=== PATIENT | female | born 1940 | race Caucasian/White ===

== ENCOUNTER 2020-01-28 07:59 | Outpatient (REF) | payer MEDICARE, MEDICAID, SELFPAY ==
[2020-01-28 12:06] LABS: Alanine Aminotransferase 17 U/L (0-31); Aspartate Amino Transferase 17 U/L (5-31); Cholesterol 179 mg/dL; HDL Cholesterol 54 mg/dL; LDL Cholesterol Calculated 93 mg/dl; Triglycerides 161 mg/dL
[2020-01-28 12:43] LABS: Estimated Average Glucose 137 mg/dL; Hemoglobin A1c % 6.4 %
== END 2020-01-28 08:00 | disposition home or self-care (01) ==
LOC: HO.HMGCLDS 07:59
PROVIDERS: PCP Internal Medicine; Visit Provider Internal Medicine
DX: I10 Essential (primary) hypertension (principal); E78.5 Hyperlipidemia, unspecified; E11.9 Type 2 diabetes mellitus without complications
CPT/HCPCS: 36415; 80061; 83036; 84450; 84460

== ENCOUNTER 2020-03-04 13:23 | Outpatient (REF) | payer MEDICARE, MEDICAID, SELFPAY ==
--- NOTE | 2020-03-04 13:26 | MM_ITS ---
EXAMINATION: MM SCREENING DIGITAL BREAST TOMOSYNTHESIS, BILATERAL CLINICAL INFORMATION: Screening. Asymptomatic. The lifetime risk of breast cancer based on the Tyrer-Cuzick Model is under 2%. COMPARISON: Mammography: 03/13/2018, 03/03/2018, 07/05/2016 TECHNIQUE: Digital breast tomosynthesis is performed in both the craniocaudal and mediolateral oblique views along with computer-aided detection (CAD). Synthesized 2D images are generated from the tomosynthesis. FINDINGS: The breasts are almost entirely fatty (ACR BI-RADS breast composition Category a). Background stromal densities are stable. There is no developing density or interval mass or architectural abnormality. No abnormal calcifications. The axilla and skin contours are unremarkable. No significant changes from prior studies. MM/MM tomosynthesis screening BI IMPRESSION: No mammographic evidence of malignancy. ASSESSMENT: BI-RADS 1: Negative RECOMMENDATION: Routine annual mammography screening. This patient's information was entered into a reminder system with a target due date for their next mammogram.
== END 2020-03-04 13:24 | disposition home or self-care (01) ==
LOC: HO.MAMMO 13:23
PROVIDERS: PCP Internal Medicine; Visit Provider Internal Medicine
DX: Z12.31 Encounter for screening mammogram for malignant neoplasm of breast (principal)
CPT/HCPCS: 77063; 77067

== ENCOUNTER → 2020-03-17 11:09 | Outpatient (BNVA) | payer MEDICARE, MEDICAID, SELFPAY | PROVIDERS: PCP Internal Medicine; Visit Provider Surgery | DX: D17.1 Benign lipomatous neoplasm of skin and subcutaneous tissue of trunk (principal) | CPT/HCPCS: 99202 ==

== ENCOUNTER → 2020-04-08 11:44 | Outpatient (BNVA) | payer MEDICARE, MEDICAID, SELFPAY | PROVIDERS: PCP Internal Medicine; Visit Provider Internal Medicine | DX: J44.9 Chronic obstructive pulmonary disease, unspecified (principal); J30.9 Allergic rhinitis, unspecified | CPT/HCPCS: 99212 ==

== ENCOUNTER 2020-05-01 22:56 | Emergency (ER) | payer MEDICARE, MEDICAID, SELFPAY ==
[2020-05-01 22:58] VITALS: BP 141/64; PULSE 110; RESP 18; TEMP 36.8; O2SAT 99; BMI 34.4
[2020-05-02] VITALS: BP 150/69; PULSE 89; RESP 18; TEMP 37; O2SAT 98
--- NOTE | 2020-05-02 00:17 | ED_ITS ---
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 She ate dinner at 6:30, meatballs and swedish fries. She is not on any new medications. She has been off of ACEI due to angioedema. She reported mild SOB at the onset of the swelling but took her inhalers for her COPD and her SOB improved. She denies tongue swelling, throat swelling, wheezing. MD complaint: allergic reaction Onset (ago): hour(s) (4) Exposure: unknown Known history of allergy to: ACEI, shellfish Symptoms: lip swelling Severity: mild Treatment prior to arrival: none Previous Allergic Reaction History: anaphylaxis and angioedema Related Data Home Medications Medication Instructions Recorded Confirmed acetaminophen 300 mg-codeine 30 mg 1 tab PO Q6H PRN 01/30/20 01/30/20 tablet albuterol sulfate 90 mcg/actuation 2 puff INHALATION Q4H PRN 01/30/20 01/30/20 aerosol inhaler allopurinol 100 mg tablet 100 mg PO DAILY 01/30/20 01/30/20 azelastine 137 mcg (0.1 %) nasal 1 spray INTRANASAL DAILY 01/30/20 01/30/20 spray aerosol chlorthalidone 25 mg tablet 25 mg PO DAILY 01/30/20 01/30/20 duloxetine 30 mg capsule,delayed mg PO 01/30/20 01/30/20 release flu vacc 2020-21(65yr ml IM 01/30/20 01/30/20 up)-MF59C(PF) 60 mcg(15 mcgx4)/0.5 mL IM syringe fluocinonide 0.05 % topical cream applic TOPICAL BID 01/30/20 01/30/20 gabapentin 100 mg capsule 100 mg PO TID 01/30/20 01/30/20 losartan 50 mg tablet 50 mg PO DAILY 01/30/20 01/30/20 magnesium oxide 400 mg (241.3 mg 400 mg PO BID 01/30/20 01/30/20 magnesium) tablet omeprazole 20 mg capsule,delayed 20 mg PO BID 01/30/20 01/30/20 release Previous Rx's Medication Instructions Recorded potassium chloride 20 mEq 20 meq PO DAILY #90 tab 01/30/20 tablet,extended release(part/cryst) pantoprazole 40 mg tablet,delayed 40 mg PO DAILY #90 ea 02/25/20 release Nasonex 50 mcg/actuation [place] 2 spray INTRANASAL DAILY #51 g NS 03/11/20 budesonide 180 mcg/actuation 1 inh PO BID #1 ea 03/31/20 breath activated powder inhaler montelukast 10 mg tablet 10 mg PO BEDTIME #30 tab 03/31/20 rosuvastatin 20 mg tablet 20 mg PO BEDTIME #30 tab 03/31/20 Serevent Diskus 50 mcg/dose powder 1 inh PO BID 90 Days ea NS 04/01/20 for inhalation sitagliptin 50 mg-metformin 500 mg 1 tab PO BID 30 Days #60 tab 04/03/20 tablet blood-glucose meter #1 ea 04/09/20 alprazolam 0.25 mg tablet 0.25 mg PO DAILY PRN #90 tab 04/21/20 albuterol sulfate 90 mcg/actuation 2 inh INHALATION Q4-6H PRN 90 Days 04/23/20 breath activated powder inhaler #1 ea budesonide 180 mcg/actuation 1 inh INHALATION DAILY 90 Days #1 04/23/20 breath activated powder inhaler ea epinephrine [EpiPen] 0.3 mg IM ONCE PRN #1 ea 05/02/20 prednisone 40 mg PO DAILY #10 tab 05/02/20 Allergies Allergy/AdvReac Type Severity Reaction Status Date / Time acetaminophen [From Percocet] Allergy Severe Nausea and Verified 04/08/20 11:56 Vomiting Penicillins [PENICILLINS] Allergy Intermediate rash Verified 04/08/20 11:56 aspirin [ASPIRIN] Allergy Mild SWELLING Verified 04/08/20 11:56 enoxaparin [From LOVENOX] Allergy Unknown INTERNAL Verified 04/08/20 11:56 BLEEDING heparin [HEPARIN] Allergy Unknown INTERNAL Verified 04/08/20 11:56 BLEEDING meperidine [Demerol] Allergy Unknown Nausea and Verified 04/08/20 11:56 Vomiting oxycodone Allergy Unknown Nausea and Verified 04/08/20 11:56 Vomiting penicillin V Allergy Unknown rash Verified 12/15/20 11:56 Sulfa (Sulfonamide Allergy Unknown NAUSEA & Verified 04/08/20 11:56 Antibiotics) VOMITING, [SULFA (SULFONAMIDE GI upset ANTIBIOTICS)] warfarin [WARFARIN] AdvReac Severe UNKNOWN Verified 04/08/20 11:56 ibuprofen AdvReac Unknown GI bleed Verified 04/08/20 11:56 Review of Systems Review of Systems: Constitutional: No Fever, No Chills ENT/Mouth: No sore throat, No Rhinorrhea, No Swallowing Difficulty Eyes: No Eye Pain, No Swelling, No Redness Cardiovascular: No Chest Pain, No SOB Respiratory: No Cough, No Sputum, No Wheezing Gastrointestinal: No Nausea, No Vomiting Skin: No Skin Lesions, No rash Neuro: No Headache PMFSH Past Medical History Attestation statement: The following information was validated with the patient. 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 Sister CVA (cerebral vascular accident) Daughter Brain tumor Diabetes Bipolar 1 disorder Heart abnormality Mental illness in member of household Social History Social History Alcohol intake: never Smoking Status: Former smoker Years Smoked: 10 yrs Smoked in Last 30 Days: No Use of substances other than those prescribed or required for medical reasons: No Advance Directives: No Physical Exam Vital Signs: Vital Signs: Last Vital Signs Temp 98.6 F 05/02/20 00:00 Pulse 89 05/02/20 00:00 Resp 18 05/02/20 00:00 BP 150/69 H 05/02/20 00:00 Pulse Ox 98 05/02/20 00:00 Body Mass Index 34.4 Appearance: Alert. Oriented X3. No acute distress. Eyes: Pupils equal, round and reactive to light. ENT: upper lip with mild swelling, normal lower lip, no lesions. normal tongue, uvula midline, Pharynx normal. normal voice Neck: Normal inspection. Neck supple. CVS: Normal heart rate and rhythm. Pulses normal. Respiratory: No respiratory distress. Breath sounds normal. Skin: Skin warm and dry. Normal skin color. Normal skin turgor. No rashes. Extremities: No lower extremity edema. Neuro: Oriented X 3. Non-focal Course Course Course Narrative: 80 y/o female with hx MAGNOLIA inhibitor induced angioedema presenting with upper lip swelling x4 hours. Reports improving swelling without treatment. No respiratory compromise or airway involvement. Unknown precipitant. Will give dose of prednisone, benadryl and pepcid and monitor in the ER. Reevaluation(s) Reevaluation #1: Improvement subjectively and objectively after medications - stable for discharge. warning symptoms to warrant EpiPen use and immediate return to the ER were discussed. Stable for d/c. Discharge Plan Discharge Clinical Impression: Angioedema Qualifiers: Encounter type: initial encounter Qualified Code(s): T78.3XXA - Angioneurotic edema, initial encounter Patient Disposition: Home, Self-Care Instructions: Angioedema (ED) Additional Instructions: It is unknown what you had an allergic reaction to today. Your lip swelling is improving. Take the prescribed steroid medication starting tomorrow morning. Take Benadryl 25 mg every 6 hours as needed for swelling. If you develop worsening symptoms or develop difficulty breathing, tongue swelling, or difficultly swallowing call 911 or come back to the ER right away for further evaluation. Recommend follow up with an Financial Systems Manager for further testing. Prescriptions: New prednisone 20 mg tablet 40 mg PO DAILY Qty: 10 RF: 0 epinephrine [EpiPen] 0.3 mg/0.3 mL auto-injector 0.3 mg IM ONCE PRN (Reason: anaphylaxis) Qty: 1 RF: 0 No Action pantoprazole 40 mg tablet,delayed release (DR/EC) 40 mg PO DAILY Qty: 90 RF: 2 mometasone [Nasonex] 50 mcg/actuation spray,non-aerosol 2 spray intranasal DAILY Qty: 51 RF: 5 rosuvastatin 20 mg tablet 20 mg PO BEDTIME Qty: 30 RF: 6 montelukast 10 mg tablet 10 mg PO BEDTIME Qty: 30 RF: 6 budesonide 180 mcg/actuation aerosol powdr breath activated 1 inh PO BID Qty: 1 RF: 3 Serevent Diskus 50 mcg/dose blister with device 1 inh PO BID 90 Days RF: 1 sitagliptin-metformin 50-500 mg tablet 1 tab PO BID 30 Days Qty: 60 RF: 3 (DME) blood-glucose meter [FreeStyle Lite Meter] Kit See Rx Instructions .ROUTE .MEDSUPPLY Qty: 1 RF: 0 alprazolam 0.25 mg tablet 0.25 mg PO DAILY PRN (Reason: anxiety) Qty: 90 RF: 0 Pulmicort Flexhaler 180 mcg/actuation aerosol powdr breath activated 1 inh inhalation DAILY 90 Days Qty: 1 RF: 3 albuterol sulfate 90 mcg/actuation aerosol powdr breath activated 2 inh inhalation Q4-6H PRN (Reason: shortness of breath or wheezing) 90 Days Qty: 1 RF: 3 chlorthalidone 25 mg tablet 25 mg PO DAILY RF: 0 allopurinol 100 mg tablet 100 mg PO DAILY RF: 0 duloxetine 30 mg capsule,delayed release(DR/EC) PO RF: 0 losartan 50 mg tablet 50 mg PO DAILY RF: 0 fluocinonide 0.05 % cream topical BID RF: 0 magnesium oxide 400 mg (241.3 mg magnesium) tablet 400 mg PO BID RF: 0 albuterol sulfate 90 mcg/actuation HFA aerosol inhaler 2 puff inhalation Q4H PRNRF: 0 azelastine 137 mcg (0.1 %) aerosol,spray 1 spray intranasal DAILY RF: 0 gabapentin 100 mg capsule 100 mg PO TID RF: 0 acetaminophen-codeine 300-30 mg tablet 1 tab PO Q6H PRNRF: 0 omeprazole 20 mg capsule,delayed release(DR/EC) 20 mg PO BID RF: 0 Fluad Quad 2020-21(65y up)(PF) 60 mcg (15 mcg x 4)/0.5 mL syringe IM RF: 0 potassium chloride 20 mEq tablet,ER particles/crystals 20 meq PO DAILY Qty: 90 RF: 2
[2020-05-02] MEDS: predniSONE 10 MG TABLET 50 MG PO (00:34)
[2020-05-02] MEDS: Famotidine 20 MG TABLET PO (00:35)
[2020-05-02] MEDS: diphenhydrAMINE HCL 25 MG TABLET PO (00:35)
== END 2020-05-02 01:04 | disposition home or self-care (01) ==
PROVIDERS: Emergency Provider Emergency Medicine; PCP Internal Medicine
DX: L23.9 Allergic contact dermatitis, unspecified cause (principal); Z87.891 Personal history of nicotine dependence; Z79.899 Other long term (current) drug therapy
CPT/HCPCS: 99284; Q0163

== ENCOUNTER 2020-05-10 12:19 | Emergency (ER) | payer MEDICARE, MEDICAID, SELFPAY ==
[2020-05-10 12:28] VITALS: BP 141/76; PULSE 96; RESP 18; TEMP 37.1; O2SAT 97; BMI 31.6
== END 2020-05-10 16:32 | disposition left against medical advice (07) ==
PROVIDERS: Emergency Provider Emergency Medicine; PCP Internal Medicine
DX: R06.02 Shortness of breath (principal)
CPT/HCPCS: 99281; 99282

== ENCOUNTER 2020-05-19 11:16 | Outpatient (REF) | payer MEDICARE, MEDICAID, SELFPAY | END 2020-05-19 11:17 | disposition home or self-care (01) | LOC: HO.LNP 11:16 | PROVIDERS: Visit Provider Nurse Practitioner Family | DX: J01.10 Acute frontal sinusitis, unspecified (principal); Z20.822 Contact with and (suspected) exposure to COVID-19 | CPT/HCPCS: U0003 ==

== ENCOUNTER 2020-07-12 10:33 | Emergency (ER) | payer MEDICARE, MEDICAID, SELFPAY ==
[2020-07-12] VITALS (9 sets, daily range): BP systolic 107–165; BP diastolic 48–71; PULSE 95–136; RESP 14–19; TEMP 37–38.6; O2SAT 98–100; BMI 32.7
--- NOTE | ~2020-07-12 | XR_ITS ---
EXAMINATION: XR CHEST CLINICAL INFORMATION: COPD COMPARISON: Chest radiograph from 03/05/2019 TECHNIQUE: Frontal view of the chest was obtained. FINDINGS: Bilateral low lung volumes. Right basilar atelectasis. Mild elevation the right hemidiaphragm, stable. There is no pneumothorax. The trachea is midline. The cardiac mediastinal silhouette is stable. Aorta demonstrates mild tortuosity. There is no pleural effusion. Degenerative changes of the thoracolumbar spine and bilateral glenohumeral joints. Soft tissues are unremarkable. XR/XR chest 1V IMPRESSION: 1. Bilateral low lung volumes. 2. Right basilar atelectasis. 3. Mild elevation the right hemidiaphragm, stable.
--- NOTE | ~2020-07-12 | CT_ITS ---
EXAMINATION CT PULMONARY ANGIOGRAM CT ABDOMEN AND PELVIS WITH CONTRAST CLINICAL INFORMATION: Shortness of breath. COVID. Abdominal pain and diarrhea. COMPARISON: CT chest dated 10/05/2018 CT abdomen/pelvis dated 02/23/2017 and 02/22/2018 TECHNIQUE: Multidetector volumetric CT imaging of the chest, abdomen and pelvis was obtained after the administration of 85 mL of intravenous Omnipaque 350 without immediate adverse reactions. Postcontrast images of the chest were acquired during the pulmonary angiographic phase. Imaging of the abdomen and pelvis was carried out during the portal venous phase. Reviewed are multiplanar reformats and maximal intensity projection images of the chest created on an independent workstation, and coronal and sagittal reformats of the abdomen/pelvis. This CT examination was performed using dose optimization techniques as appropriate, variously including the following: *Automated exposure control *Adjustment of mA and/or kV according to patient size (this includes techniques or standardized protocols for targeted exams where dose is matched to indication/reason for exam; i.e. extremities or head) *Use of iterative reconstruction technique DLP: 986 mGy-cm. FINDINGS: CHEST PULMONARY ARTERIES: No pulmonary embolism. AORTA: No aortic aneurysm or dissection. LUNGS/PLEURA: There are patchy groundglass opacities throughout the right lung, and to a much lesser extent the left lung. No pneumothorax. There is no pleural effusion. No pleural mass or thickening. MEDIASTINUM/HARRY: Normal heart size. No mediastinal, hilar or supraclavicular adenopathy. CHEST WALL/AXILLA: Unremarkable. ABDOMEN/PELVIS HEPATOBILIARY: Liver normal in size, contour and morphology. No suspicious lesions. No intra or extrahepatic biliary dilation. Gallbladder unremarkable. PANCREAS: Unremarkable. SPLEEN: Unremarkable. ADRENAL GLANDS: Unremarkable. KIDNEYS, URETERS AND BLADDER: Kidneys normal in size, axis and morphology demonstrating symmetric enhancement. Stable bilateral renal cysts are simple in appearance although some are technically too small to characterize. No hydronephrosis or urinary calculi. Ureters normal in course and caliber. Bladder grossly unremarkable.. GASTROINTESTINAL TRACT: Left colonic diverticulosis without evidence of diverticulitis. Status post appendectomy. Small sliding-type hiatal hernia. Small bowel unremarkable. PELVIC VISCERA: Hysterectomy. No adnexal abnormalities. LYMPH NODES: No lymphadenopathy. There are couple coarse calcifications within a portocaval lymph node likely related to prior granulomatous disease. PERITONEUM/BODY WALL: Unremarkable. VASCULAR STRUCTURES: Aorta is atherosclerotic but normal caliber. Patent vascular structures. OSSEOUS STRUCTURES No acute or suspicious osseous abnormalities. Degenerative changes present throughout the lumbar spine. CT/CT angio chest PE protocol IMPRESSION: * No evidence of pulmonary embolism. * No aortic dissection or aneurysm. * Bilateral pulmonary parenchymal groundglass opacities, more pronounced within the right lung. This would be compatible with an atypical pneumonitis such as COVID. * Left colonic diverticulosis without evidence of diverticulitis.
--- NOTE | 2020-07-12 10:35 | PC.NURSE ---
evelina, pt daughters phone number [phone]
--- NOTE | 2020-07-12 12:33 | ED.GENADULT ---
HPI - General Adult General Chief complaint: General Medical <Malika Valenzuela PA-C - Last Filed: 07/12/20 16:24> Stated complaint: RAPID HEART RATE <Malika Valenzuela PA-C - Last Filed: 07/12/20 16:24> Time Seen by Provider: 07/12/20 11:15 <Malika Valenzuela PA-C - Last Filed: 07/12/20 16:24> Source: patient <Malika Valenzuela PA-C - Last Filed: 07/12/20 16:24> Mode of arrival: ambulatory <Malika Valenzuela PA-C - Last Filed: 07/12/20 16:24> Limitations: no limitations <Malika Valenzuela PA-C - Last Filed: 07/12/20 16:24> History of Present Illness HPI narrative: Patient is a 80-year-old female the past medical history of T2DM, HTN, GERD, Gout, COPD not on home O2, 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 Patient states her daughter and her daughter's , both of whom she lives with have had COVID but finished their quarantine 5 days ago. Patient states she was tested for COVID 8 days ago and tested negative and was asymptomatic. She states that in the middle of this last week, just 3 or 4 days ago she began not feeling well, not eating, sinus pain, dizziness, headache and shortness of breath, fever and chills. Patient denies nausea vomiting diarrhea but is endorsing some reflux pain. Patient states she does take a potassium pill daily but has not taken it for the last 3 days because she has not felt well. <Malika Valenzuela PA-C - Last Filed: 07/12/20 16:24> Related Data Home medications: Home Medications Medication Instructions Recorded Confirmed acetaminophen 300 mg-codeine 30 mg 1 tab PO Q6H PRN 01/30/20 07/12/20 tablet albuterol sulfate 90 mcg/actuation 2 puff INHALATION Q4H PRN 01/30/20 07/12/20 aerosol inhaler allopurinol 100 mg tablet 100 mg PO DAILY 01/30/20 07/12/20 azelastine 137 mcg (0.1 %) nasal 1 spray INTRANASAL DAILY 01/30/20 07/12/20 spray aerosol chlorthalidone 25 mg tablet 25 mg PO DAILY 01/30/20 01/30/20 flu vacc 2020-21(65yr ml IM 01/30/20 07/12/20 up)-MF59C(PF) 60 mcg(15 mcgx4)/0.5 mL IM syringe fluocinonide 0.05 % topical cream applic TOPICAL BID 01/30/20 07/12/20 gabapentin 100 mg capsule 100 mg PO TID 01/30/20 07/12/20 losartan 50 mg tablet 50 mg PO DAILY 01/30/20 07/12/20 magnesium oxide 400 mg (241.3 mg 400 mg PO BID 01/30/20 07/12/20 magnesium) tablet omeprazole 20 mg capsule,delayed 20 mg PO BID 01/30/20 07/12/20 release Previous Rx's Medication Instructions Recorded potassium chloride 20 mEq 20 meq PO DAILY #90 tab 01/30/20 tablet,extended release(part/cryst) pantoprazole 40 mg tablet,delayed 40 mg PO DAILY #90 ea 02/25/20 release Nasonex 50 mcg/actuation [employer] 2 spray INTRANASAL DAILY #51 g NS 03/11/20 budesonide 180 mcg/actuation 1 inh PO BID #1 ea 03/31/20 breath activated powder inhaler montelukast 10 mg tablet 10 mg PO BEDTIME #30 tab 03/31/20 rosuvastatin 20 mg tablet 20 mg PO BEDTIME #30 tab 03/31/20 Serevent Diskus 50 mcg/dose powder 1 inh PO BID 90 Days ea NS 04/01/20 for inhalation sitagliptin 50 mg-metformin 500 mg 1 tab PO BID 30 Days #60 tab 04/03/20 tablet blood-glucose meter #1 ea 04/09/20 alprazolam 0.25 mg tablet 0.25 mg PO DAILY PRN #90 tab 04/21/20 albuterol sulfate 90 mcg/actuation 2 inh INHALATION Q4-6H PRN 90 Days 04/23/20 breath activated powder inhaler #1 ea budesonide 180 mcg/actuation 1 inh INHALATION DAILY 90 Days #1 04/23/20 breath activated powder inhaler ea epinephrine [EpiPen] 0.3 mg IM ONCE PRN #1 ea 05/02/20 prednisone 40 mg PO DAILY #10 tab 05/02/20 duloxetine 30 mg capsule,delayed 30 mg PO BID #180 ea 05/23/20 release azithromycin 250 mg tablet See Rx Instructions PO .COMPLEX #6 07/09/20 tab acetaminophen-codeine 1 tab PO Q8H PRN #10 tab 07/12/20 doxycycline monohydrate 100 mg PO BID 10 Days #20 cap 07/12/20 ondansetron HCl [Zofran] 4 mg PO Q8H PRN #14 tab 07/12/20 prednisone 40 mg PO DAILY 5 Days #10 tab 07/12/20 <Malika Valenzuela PA-C - Last Filed: 07/12/20 16:24> Allergies/adverse reactions: Allergies Allergy/AdvReac Type Severity Reaction Status Date / Time acetaminophen [From Percocet] Allergy Severe Nausea and Verified 07/12/20 11:17 Vomiting Penicillins [PENICILLINS] Allergy Intermediate rash Verified 07/12/20 11:17 aspirin [ASPIRIN] Allergy Mild SWELLING Verified 07/12/20 11:17 enoxaparin [From LOVENOX] Allergy Unknown INTERNAL Verified 07/12/20 11:17 BLEEDING heparin [HEPARIN] Allergy Unknown INTERNAL Verified 07/12/20 11:17 BLEEDING meperidine [Demerol] Allergy Unknown Nausea and Verified 07/12/20 11:17 Vomiting oxycodone Allergy Unknown Nausea and Verified 07/12/20 11:17 Vomiting penicillin V Allergy Unknown rash Verified 07/12/20 11:17 Sulfa (Sulfonamide Allergy Unknown NAUSEA & Verified 07/12/20 11:17 Antibiotics) VOMITING, [SULFA (SULFONAMIDE GI upset ANTIBIOTICS)] warfarin [WARFARIN] AdvReac Severe UNKNOWN Verified 07/12/20 11:17 ibuprofen AdvReac Unknown GI bleed Verified 07/12/20 11:17 <Malika Valenzuela PA-C - Last Filed: 07/12/20 16:24> Review of Systems Review of Systems: Yes all other systems are reviewed and are negative <Malika Valenzuela PA-C - Last Filed: 07/12/20 16:24> [facility] Past Medical History Medical History: Medical History Allergic rhinitis 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) Anxiety disorder COPD (chronic obstructive pulmonary disease) Deep vein thrombosis (DVT) of left lower extremity Diverticulitis GERD (gastroesophageal reflux disease) Gout Hyperlipidemia Hypertension Multiple lipomas Nodular lesion on surface of skin Seasonal allergies Type 2 diabetes mellitus without complication, without long-term current use of insulin <Malika Valenzuela PA-C - Last Filed: 07/12/20 16:24> Surgical History: Surgical History H/O local excision of skin lesion <Malika Valenzuela PA-C - Last Filed: 07/12/20 16:24> Family History Family History: Family History Mother No problems noted. Sister CVA (cerebral vascular accident) Daughter Brain tumor Diabetes Bipolar 1 disorder Heart abnormality Mental illness in member of household <Malika Valenzuela PA-C - Last Filed: 07/12/20 16:24> Social History Social History: Social History Alcohol intake: never Smoking Status: Former smoker Years Smoked: 10 yrs Smoked in Last 30 Days: No Use of substances other than those prescribed or required for medical reasons: No Advance Directives: No Advance Directives Information Provided: No <Mailka Valenzuela PA-C - Last Filed: 07/12/20 16:24> Physical Exam Vital Signs: Vital Signs: Last Vital Signs Temp 99.7 F 07/12/20 19:04 Pulse 98 07/12/20 19:04 Resp 18 07/12/20 19:04 BP 131/56 L 07/12/20 19:04 Pulse Ox 98 07/12/20 19:04 Body Mass Index 32.7 <Malika Valenzuela PA-C - Last Filed: 07/12/20 16:24> Vital Signs: Last Vital Signs Temp 99.7 F 07/12/20 19:04 Pulse 98 07/12/20 19:04 Resp 18 07/12/20 19:04 BP 131/56 L 07/12/20 19:04 Pulse Ox 98 07/12/20 19:04 Body Mass Index 32.7 <HOOD Bautista Last Filed: 07/12/20 20:50> Const: General: cooperative, healthy appearing, comfortable and no acute distress <Malika Valenzuela PA-C - Last Filed: 07/12/20 16:24> Nutritional Appearance: average body habitus and well nourished <Malika Valenzuela PA-C - Last Filed: 07/12/20 16:24> Orientation/consciousness: patient oriented x3 <Malika Valenzuela PA-C - Last Filed: 07/12/20 16:24> HENMT: Head: Yes normal to inspection, Yes normocephalic and Yes atraumatic <Malika Valenzuela PA-C - Last Filed: 07/12/20 16:24> Ears: hearing grossly normal bilaterally <Malika Valenzuela PA-C - Last Filed: 07/12/20 16:24> General nose exam: Normal external nose present <Malika Valenzuela PA-C - Last Filed: 07/12/20 16:24> Face and sinus: Yes normal facial exam and Yes sinuses nontender <Malika Valenzuela PA-C - Last Filed: 07/12/20 16:24> Eyes: General: appearance normal, both eyes and all related structures <Malika Valenzuela PA-C - Last Filed: 07/12/20 16:24> Pupils: Equal, round and reactive pupils present <Malika Valenzuela PA-C - Last Filed: 07/12/20 16:24> EOM: EOMs intact bilaterally <Malika Valenzuela PA-C - Last Filed: 07/12/20 16:24> Neck: Neck: Yes normal visual inspection, Yes full ROM and Yes supple <Malika Valenzuela PA-C - Last Filed: 07/12/20 16:24> Resp: Effort & Inspection: normal respiratory effort and able to speak in complete sentences <LATONYA Barnett Last Filed: 07/12/20 16:24> Auscultation: wheezes expiratory wheezes and posterior (Scant bilateral) <Malika Valenzuela PA-C [employer] Last Filed: 07/12/20 16:24> Cardio: Rate: regular rate <Malika Valenzuela PA-C - Last Filed: 07/12/20 16:24> Rhythm: regular rhythm <Malika Valenzuela PA-C - Last Filed: 07/12/20 16:24> GI: Palpation (GI): Soft to palpation and nontender <Malika Valenzuela PA-C - Last Filed: 07/12/20 16:24> Neuro: General: patient oriented x3 <Malika Valenzuela PA-C - Last Filed: 07/12/20 16:24> Cranial nerves: Yes Equal, round and reactive pupils present <Malika Valenzuela PA-C - Last Filed: 07/12/20 16:24> Extrem: General: Yes normal to inspection and Yes no pedal edema <Malika Valenzuela PA-C - Last Filed: 07/12/20 16:24> Course Course Course Narrative: Patient is a 80-year-old female the past medical history of T2DM, HTN, GERD, Gout, COPD not on home O2, 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 Vital signs stable, physical exam unremarkable sans scant expiratory wheezes at the bases. Will rehydrate patient, get labs, Covid test, EKG, troponin, CXR and give Pepcid for her reflux. <Malika Valenzuela PA-C - Last Filed: 07/12/20 16:24> 8:15pm - I received sign-out for this patient apparently patient was sent from the Urgent Care for tachycardia with shortness of breath. Patient also reported abdominal pain with diarrhea while she was here in the emergency department. - she had a full workup and she was noted to have a potassium of 2.9. BUN of 20. Troponin 20.3 then negative delta at 23.5. Patient never complained of any chest pain only shortness of breath and abdominal pain. Patient positive for COVID. - chest x-ray revealed bilateral low lung volumes with right bibasilar atelectasis and mild elevation of the right hemidiaphragm that is stable. - CT scan of chest for PE and CT scan of abdomen and pelvis with IV contrast negative for pulmonary embolism aortic dissection or aneurysm revealed bilateral pulmonary ground-glass opacities worse in the right lung consistent with COVID and colonic diverticulosis without evidence of diverticulitis. - therefore patient at this time has received 2 L of IV fluids she received p.o. potassium and IV potassium she reports she feels completely better at this time. - all her vitals have improved she is no longer tachycardic and her oxygen saturation continues to be 98-100% on room air. - patient will be discharged with antibiotics and symptomatic treatment along with instructions to return if any new or worsening symptoms and to follow up with her primary care provider and to self isolate. Patient understands agrees with this plan. <HOOD Bautista - Last Filed: 07/12/20 20:50> Reevaluation(s) Reevaluation #1: Patient is COVID positive, also has hypokalemia at 2.9, will replace and recheck her potassium in 1 hour <Malika Valenzuela PA-C - Last Filed: 07/12/20 16:24> Time: 14:36 <Malika Valenzuela PA-C - Last Filed: 07/12/20 16:24> Reevaluation #2: Sign out to Nicolle Albright PA-C <Malika Valenzuela PA-C - Last Filed: 07/12/20 16:24> Time: 17:00 <Malika Valenzuela PA-C - Last Filed: 07/12/20 16:24> Medical Decision Making Medical Records Medical records reviewed: Yes I reviewed the patient's medical records. <HOOD Bautista Last Filed: 07/12/20 20:50> Lab Data Lab results reviewed: Yes I reviewed the patient's lab results. <HOOD Bautista Last Filed: 07/12/20 20:50> Result diagrams: : 07/12/20 13:17 07/12/20 17:16 <Malika Valenzuela PA-C - Last Filed: 07/12/20 16:24> Labs: Lab Results 07/12/20 07/12/20 07/12/20 Range/Units 13:17 13:17 13:17 WBC 9.6 (4.8-10.8) X10*3/uL RBC 4.53 (4.20-5.50) X10*6/uL Hgb 11.4 L (12.0-16.0) g/dl Hct 34.9 L (37-47) % MCV 77.0 L (80-98) fL MCH 25.2 L (27.0-33.0) pg MCHC 32.7 (31.0-35.0) g/dl RDW 17.9 H (11.0-16.0) % Plt Count 277 (160-400) X10*3/uL MPV 10.4 (9.4-12.3) fL Immature Gran % (Auto) 0.4 (0.0-0.4) % Neut % (Auto) 69.2 (45-73) % Lymph % (Auto) 24.0 (20-40) % [place] % (Auto) 6.2 (2-11) % Eos % (Auto) 0.0 (0-4) % Baso % (Auto) 0.2 (0-2) % Lymph # (Auto) 2.3 (1.2-4.9) X10*3/uL [place] # (Auto) 0.6 (0.1-1.2) X10*3/uL Eos # (Auto) 0.0 (0.0-0.4) X10*3/uL Baso # (Auto) 0.0 (0.0-0.2) X10*3/uL Abs Immat Gran (auto) 0.04 H (0.00-0.03) X10*3/uL Absolute Neuts (auto) 6.7 (2.0-8.3) X10*3/uL Absolute Nucleated RBC 0.000 (0.0-0.012) X10*3/uL Nucleated RBC % (auto) 0.0 (0.0-0.2) /100WBC Sodium 135 (135-145) mmol/L Potassium 2.9 L (3.3-5.1) mmol/L Chloride 95 L (96-108) mmol/L Carbon Dioxide 26 (22-29) mmol/L Anion Gap 17 (12-20) BUN 20 H (9-16) mg/dL Creatinine 0.86 (0.5-1.4) mg/dL Estim Creat Clear Calc 48.3 Estimated GFR > 60 Random Glucose 93 (60-115) mg/dL Calcium 8.8 (8.4-10.2) mg/dL Troponin I High Sens (<3.5-17.0) ng/L COVID-19 (ROSLYN) Positive A (Negative) COVID-19 Clin Com See Note 07/12/20 07/12/20 07/12/20 Range/Units 13:17 15:26 16:30 WBC (4.8-10.8) X10*3/uL RBC (4.20-5.50) X10*6/uL Hgb (12.0-16.0) g/dl Hct (37-47) % MCV (80-98) fL MCH (27.0-33.0) pg MCHC (31.0-35.0) g/dl RDW (11.0-16.0) % Plt Count (160-400) X10*3/uL MPV (9.4-12.3) fL Immature Gran % (Auto) (0.0-0.4) % Neut % (Auto) (45-73) % Lymph % (Auto) (20-40) % [place] % (Auto) (2-11) % Eos % (Auto) (0-4) % Baso % (Auto) (0-2) % Lymph # (Auto) (1.2-4.9) X10*3/uL [place] # (Auto) (0.1-1.2) X10*3/uL Eos # (Auto) (0.0-0.4) X10*3/uL Baso # (Auto) (0.0-0.2) X10*3/uL Abs Immat Gran (auto) (0.00-0.03) X10*3/uL Absolute Neuts (auto) (2.0-8.3) X10*3/uL Absolute Nucleated RBC (0.0-0.012) X10*3/uL Nucleated RBC % (auto) (0.0-0.2) /100WBC Sodium 134 L (135-145) mmol/L Potassium 3.0 L (3.3-5.1) mmol/L Chloride 95 L (96-108) mmol/L Carbon Dioxide 25 (22-29) mmol/L Anion Gap 17 (12-20) BUN 18 H (9-16) mg/dL Creatinine 0.76 (0.5-1.4) mg/dL Estim Creat Clear Calc 54.7 Estimated GFR > 60 Random Glucose 95 (60-115) mg/dL Calcium 8.3 L (8.4-10.2) mg/dL Troponin I High Sens 20.3 H 23.5 H (<3.5-17.0) ng/L COVID-19 (ROSLYN) (Negative) COVID-19 Clin Com 07/12/20 Range/Units 17:16 WBC (4.8-10.8) X10*3/uL RBC (4.20-5.50) X10*6/uL Hgb (12.0-16.0) g/dl Hct (37-47) % MCV (80-98) fL MCH (27.0-33.0) pg MCHC (31.0-35.0) g/dl RDW (11.0-16.0) % Plt Count (160-400) X10*3/uL MPV (9.4-12.3) fL Immature Gran % (Auto) (0.0-0.4) % Neut % (Auto) (45-73) % Lymph % (Auto) (20-40) % [place] % (Auto) (2-11) % Eos % (Auto) (0-4) % Baso % (Auto) (0-2) % Lymph # (Auto) (1.2-4.9) X10*3/uL [place] # (Auto) (0.1-1.2) X10*3/uL Eos # (Auto) (0.0-0.4) X10*3/uL Baso # (Auto) (0.0-0.2) X10*3/uL Abs Immat Gran (auto) (0.00-0.03) X10*3/uL Absolute Neuts (auto) (2.0-8.3) X10*3/uL Absolute Nucleated RBC (0.0-0.012) X10*3/uL Nucleated RBC % (auto) (0.0-0.2) /100WBC Sodium 134 L (135-145) mmol/L Potassium 3.2 L (3.3-5.1) mmol/L Chloride 98 (96-108) mmol/L Carbon Dioxide 22 (22-29) mmol/L Anion Gap 17 (12-20) BUN 19 H (9-16) mg/dL Creatinine 0.80 (0.5-1.4) mg/dL Estim Creat Clear Calc 51.9 Estimated GFR > 60 Random Glucose 118 H (60-115) mg/dL Calcium 8.6 (8.4-10.2) mg/dL Troponin I High Sens (<3.5-17.0) ng/L COVID-19 (ROSLYN) (Negative) COVID-19 Clin Com <Malika Valenzuela PA-C - Last Filed: 07/12/20 16:24> Lab Results 07/12/20 07/12/20 07/12/20 Range/Units 13:17 13:17 13:17 WBC 9.6 (4.8-10.8) X10*3/uL RBC 4.53 (4.20-5.50) X10*6/uL Hgb 11.4 L (12.0-16.0) g/dl Hct 34.9 L (37-47) % MCV 77.0 L (80-98) fL MCH 25.2 L (27.0-33.0) pg MCHC 32.7 (31.0-35.0) g/dl RDW 17.9 H (11.0-16.0) % Plt Count 277 (160-400) X10*3/uL MPV 10.4 (9.4-12.3) fL Immature Gran % (Auto) 0.4 (0.0-0.4) % Neut % (Auto) 69.2 (45-73) % Lymph % (Auto) 24.0 (20-40) % [place] % (Auto) 6.2 (2-11) % Eos % (Auto) 0.0 (0-4) % Baso % (Auto) 0.2 (0-2) % Lymph # (Auto) 2.3 (1.2-4.9) X10*3/uL [place] # (Auto) 0.6 (0.1-1.2) X10*3/uL Eos # (Auto) 0.0 (0.0-0.4) X10*3/uL Baso # (Auto) 0.0 (0.0-0.2) X10*3/uL Abs Immat Gran (auto) 0.04 H (0.00-0.03) X10*3/uL Absolute Neuts (auto) 6.7 (2.0-8.3) X10*3/uL Absolute Nucleated RBC 0.000 (0.0-0.012) X10*3/uL Nucleated RBC % (auto) 0.0 (0.0-0.2) /100WBC Sodium 135 (135-145) mmol/L Potassium 2.9 L (3.3-5.1) mmol/L Chloride 95 L (96-108) mmol/L Carbon Dioxide 26 (22-29) mmol/L Anion Gap 17 (12-20) BUN 20 H (9-16) mg/dL Creatinine 0.86 (0.5-1.4) mg/dL Estim Creat Clear Calc 48.3 Estimated GFR > 60 Random Glucose 93 (60-115) mg/dL Calcium 8.8 (8.4-10.2) mg/dL Troponin I High Sens (<3.5-17.0) ng/L COVID-19 (ROSLYN) Positive A (Negative) COVID-19 Clin Com See Note 07/12/20 07/12/20 07/12/20 Range/Units 13:17 15:26 16:30 WBC (4.8-10.8) X10*3/uL RBC (4.20-5.50) X10*6/uL Hgb (12.0-16.0) g/dl Hct (37-47) % MCV (80-98) fL MCH (27.0-33.0) pg MCHC (31.0-35.0) g/dl RDW (11.0-16.0) % Plt Count (160-400) X10*3/uL MPV (9.4-12.3) fL Immature Gran % (Auto) (0.0-0.4) % Neut % (Auto) (45-73) % Lymph % (Auto) (20-40) % [place] % (Auto) (2-11) % Eos % (Auto) (0-4) % Baso % (Auto) (0-2) % Lymph # (Auto) (1.2-4.9) X10*3/uL [place] # (Auto) (0.1-1.2) X10*3/uL Eos # (Auto) (0.0-0.4) X10*3/uL Baso # (Auto) (0.0-0.2) X10*3/uL Abs Immat Gran (auto) (0.00-0.03) X10*3/uL Absolute Neuts (auto) (2.0-8.3) X10*3/uL Absolute Nucleated RBC (0.0-0.012) X10*3/uL Nucleated RBC % (auto) (0.0-0.2) /100WBC Sodium 134 L (135-145) mmol/L Potassium 3.0 L (3.3-5.1) mmol/L Chloride 95 L (96-108) mmol/L Carbon Dioxide 25 (22-29) mmol/L Anion Gap 17 (12-20) BUN 18 H (9-16) mg/dL Creatinine 0.76 (0.5-1.4) mg/dL Estim Creat Clear Calc 54.7 Estimated GFR > 60 Random Glucose 95 (60-115) mg/dL Calcium 8.3 L (8.4-10.2) mg/dL Troponin I High Sens 20.3 H 23.5 H (<3.5-17.0) ng/L COVID-19 (ROSLYN) (Negative) COVID-19 Clin Com 07/12/20 Range/Units 17:16 WBC (4.8-10.8) X10*3/uL RBC (4.20-5.50) X10*6/uL Hgb (12.0-16.0) g/dl Hct (37-47) % MCV (80-98) fL MCH (27.0-33.0) pg MCHC (31.0-35.0) g/dl RDW (11.0-16.0) % Plt Count (160-400) X10*3/uL MPV (9.4-12.3) fL Immature Gran % (Auto) (0.0-0.4) % Neut % (Auto) (45-73) % Lymph % (Auto) (20-40) % [place] % (Auto) (2-11) % Eos % (Auto) (0-4) % Baso % (Auto) (0-2) % Lymph # (Auto) (1.2-4.9) X10*3/uL [place] # (Auto) (0.1-1.2) X10*3/uL Eos # (Auto) (0.0-0.4) X10*3/uL Baso # (Auto) (0.0-0.2) X10*3/uL Abs Immat Gran (auto) (0.00-0.03) X10*3/uL Absolute Neuts (auto) (2.0-8.3) X10*3/uL Absolute Nucleated RBC (0.0-0.012) X10*3/uL Nucleated RBC % (auto) (0.0-0.2) /100WBC Sodium 134 L (135-145) mmol/L Potassium 3.2 L (3.3-5.1) mmol/L Chloride 98 (96-108) mmol/L Carbon Dioxide 22 (22-29) mmol/L Anion Gap 17 (12-20) BUN 19 H (9-16) mg/dL Creatinine 0.80 (0.5-1.4) mg/dL Estim Creat Clear Calc 51.9 Estimated GFR > 60 Random Glucose 118 H (60-115) mg/dL Calcium 8.6 (8.4-10.2) mg/dL Troponin I High Sens (<3.5-17.0) ng/L COVID-19 (ROSLYN) (Negative) COVID-19 Clin Com <HOOD Bautista - Last Filed: 07/12/20 20:50> Imaging Data CTA of chest for PE and CT scan of abdomen and pelvis with IV contrast: Attestation: I personally reviewed and interpreted this imaging study as follows: <HOOD Bautista - Last Filed: 07/12/20 20:50> Radiologist's impression: FINDINGS: CHEST PULMONARY ARTERIES: No pulmonary embolism. AORTA: No aortic aneurysm or dissection. LUNGS/PLEURA: There are patchy groundglass opacities throughout the right lung, and to a much lesser extent the left lung. No pneumothorax. There is no pleural effusion. No pleural mass or thickening. MEDIASTINUM/HARRY: Normal heart size. No mediastinal, hilar or supraclavicular adenopathy. CHEST WALL/AXILLA: Unremarkable. ABDOMEN/PELVIS HEPATOBILIARY: Liver normal in size, contour and morphology. No suspicious lesions. No intra or extrahepatic biliary dilation. Gallbladder unremarkable. PANCREAS: Unremarkable. SPLEEN: Unremarkable. ADRENAL GLANDS: Unremarkable. KIDNEYS, URETERS AND BLADDER: Kidneys normal in size, axis and morphology demonstrating symmetric enhancement. Stable bilateral renal cysts are simple in appearance although some are technically too small to characterize. No hydronephrosis or urinary calculi. Ureters normal in course and caliber. Bladder grossly unremarkable.. GASTROINTESTINAL TRACT: Left colonic diverticulosis without evidence of diverticulitis. Status post appendectomy. Small sliding-type hiatal hernia. Small bowel unremarkable. PELVIC VISCERA: Hysterectomy. No adnexal abnormalities. LYMPH NODES: No lymphadenopathy. There are couple coarse calcifications within a portocaval lymph node likely related to prior granulomatous disease. PERITONEUM/BODY WALL: Unremarkable. VASCULAR STRUCTURES: Aorta is atherosclerotic but normal caliber. Patent vascular structures. OSSEOUS STRUCTURES No acute or suspicious osseous abnormalities. Degenerative changes present throughout the lumbar spine. CT/CT angio chest PE protocol IMPRESSION: * No evidence of pulmonary embolism. * No aortic dissection or aneurysm. * Bilateral pulmonary parenchymal groundglass opacities, more pronounced within the right lung. This would be compatible with an atypical pneumonitis such as COVID. * Left colonic diverticulosis without evidence of diverticulitis. <HOOD Bautista Last Filed: 07/12/20 20:50> Critical Care Time Critical Care Time Critical Care Time: Yes <HOOD Bautista Last Filed: 07/12/20 20:50> Total Critical Care Time: 60 <HOOD Bautista Last Filed: 07/12/20 20:50> Attestation: I personally attest to this time spent taking care of the patient <HOOD Bautista Last Filed: 07/12/20 20:50> Discharge Plan Discharge Clinical Impression: COVID-19, Hypokalemia, Acute dehydration, Colon, diverticulosis <Malika Valenzuela PA-C - Last Filed: 07/12/20 16:24> Patient Disposition: Home, Self-Care <Malika Valenzuela PA-C - Last Filed: 07/12/20 16:24> Instructions: Diverticulosis (ED), Hypokalemia (ED), COVID-19 (Coronavirus Disease 2019) (ED) <Malika Valenzuela PA-C - Last Filed: 07/12/20 16:24> Additional Instructions: Please be sure to stay well hydrated and make sure you are taking your potassium pill each day. If you are unable to do either of these, please return to the emergency room. If you experience any chest pain, shortness of breath, please return to the emergency room. <Malika Valenzuela PA-C - Last Filed: 07/12/20 16:24> Prescriptions: New acetaminophen-codeine 300-30 mg tablet 1 tab PO Q8H PRN (Reason: pain) Qty: 10 RF: 0 ondansetron HCl [Zofran] 4 mg tablet 4 mg PO Q8H PRN (Reason: nausea and vomiting) Qty: 14 RF: 0 doxycycline monohydrate 100 mg capsule 100 mg PO BID 10 Days Qty: 20 RF: 0 prednisone 20 mg tablet 40 mg PO DAILY 5 Days Qty: 10 RF: 0 No Action pantoprazole 40 mg tablet,delayed release (DR/EC) 40 mg PO DAILY Qty: 90 RF: 2 mometasone [Nasonex] 50 mcg/actuation spray,non-aerosol 2 spray intranasal DAILY Qty: 51 RF: 5 rosuvastatin 20 mg tablet 20 mg PO BEDTIME Qty: 30 RF: 6 montelukast 10 mg tablet 10 mg PO BEDTIME Qty: 30 RF: 6 budesonide 180 mcg/actuation aerosol powdr breath activated 1 inh PO BID Qty: 1 RF: 3 Serevent Diskus 50 mcg/dose blister with device 1 inh PO BID 90 Days RF: 1 sitagliptin-metformin 50-500 mg tablet 1 tab PO BID 30 Days Qty: 60 RF: 3 (DME) blood-glucose meter [FreeStyle Lite Meter] Kit See Rx Instructions .ROUTE .MEDSUPPLY Qty: 1 RF: 0 alprazolam 0.25 mg tablet 0.25 mg PO DAILY PRN (Reason: anxiety) Qty: 90 RF: 0 Pulmicort Flexhaler 180 mcg/actuation aerosol powdr breath activated 1 inh inhalation DAILY 90 Days Qty: 1 RF: 3 albuterol sulfate 90 mcg/actuation aerosol powdr breath activated 2 inh inhalation Q4-6H PRN (Reason: shortness of breath or wheezing) 90 Days Qty: 1 RF: 3 duloxetine 30 mg capsule,delayed release(DR/EC) 30 mg PO BID Qty: 180 RF: 0 azithromycin 250 mg tablet See Rx Instructions PO .COMPLEX Qty: 6 RF: 0 prednisone 20 mg tablet 40 mg PO DAILY Qty: 10 RF: 0 epinephrine [EpiPen] 0.3 mg/0.3 mL auto-injector 0.3 mg IM ONCE PRN (Reason: anaphylaxis) Qty: 1 RF: 0 chlorthalidone 25 mg tablet 25 mg PO DAILY RF: 0 allopurinol 100 mg tablet 100 mg PO DAILY RF: 0 losartan 50 mg tablet 50 mg PO DAILY RF: 0 fluocinonide 0.05 % cream topical BID RF: 0 magnesium oxide 400 mg (241.3 mg magnesium) tablet 400 mg PO BID RF: 0 albuterol sulfate 90 mcg/actuation HFA aerosol inhaler 2 puff inhalation Q4H PRNRF: 0 azelastine 137 mcg (0.1 %) aerosol,spray 1 spray intranasal DAILY RF: 0 gabapentin 100 mg capsule 100 mg PO TID RF: 0 acetaminophen-codeine 300-30 mg tablet 1 tab PO Q6H PRNRF: 0 omeprazole 20 mg capsule,delayed release(DR/EC) 20 mg PO BID RF: 0 Fluad Quad 2020-21(65y up)(PF) 60 mcg (15 mcg x 4)/0.5 mL syringe IM RF: 0 potassium chloride 20 mEq tablet,ER particles/crystals 20 meq PO DAILY Qty: 90 RF: 2 <Malika Valenzuela PA-C - Last Filed: 07/12/20 16:24> Referrals: Melissa Shannon MD [Primary Care Provider] - 2 days <Malika Valenzuela PA-C - Last Filed: 07/12/20 16:24> Print Language: Arabic <Malika Valenzuela PA-C - Last Filed: 07/12/20 16:24>
[2020-07-12] MEDS: Lactated Ringers 1,000 ML 999 ML IV (13:20)
[2020-07-12 13:42] LABS: MANUAL DIFF FLAG NO
[2020-07-12 13:44] LABS: Basophils Percent Auto 0.2 % (0-2); Hematocrit 34.9 % (37-47); Hemoglobin 11.4 g/dl (12.0-16.0); Imm Gran Abs Auto 0.04 X10*3/uL (0.00-0.03); Imm Gran Pct Auto 0.4 % (0.0-0.4); Lymphocytes Absolute Auto 2.3 X10*3/uL (1.2-4.9); Mean Corpuscular HGB Conc 32.7 g/dl (31.0-35.0); Mean Corpuscular Hemoglobin 25.2 pg (27.0-33.0); Mean Platelet Volume 10.4 fL (9.4-12.3); Monocytes Absolute Auto 0.6 X10*3/uL (0.1-1.2); Monocytes Percent Auto 6.2 % (2-11); Neutrophils Absolute Auto 6.7 X10*3/uL (2.0-8.3); Neutrophils Percent Auto 69.2 % (45-73); Platelet Count 277 X10*3/uL (160-400); Red Blood Count 4.53 X10*6/uL (4.20-5.50); Red Cell Distribution Width 17.9 % (11.0-16.0); White Blood Count 9.6 X10*3/uL (4.8-10.8)
[2020-07-12 13:57] LABS: IDNOW Serial# 9DD0AD1C
[2020-07-12 13:59] LABS: COVID-19 Test Positive (Negative)
[2020-07-12] MEDS: Famotidine 20 MG TABLET PO (14:08)
[2020-07-12 14:13] LABS: Anion Gap 17 (12-20); Blood Urea Nitrogen 20 mg/dL (9-16); Calcium 8.8 mg/dL (8.4-10.2); Carbon Dioxide 26 mmol/L (22-29); Chloride 95 mmol/L (96-108); Creatinine Clr Calc Pharmacy 48.3; Estimated Glomerular Filt Rate > 60; Glucose Random 93 mg/dL (60-115); Potassium 2.9 mmol/L (3.3-5.1); Sodium 135 mmol/L (135-145)
[2020-07-12 14:14] LABS: Troponin-I High Sensitivity 20.3 ng/L (<3.5-17.0)
[2020-07-12] MEDS: Potassium Chloride Packet 20 MEQ PACKET 40 MEQ PO (15:04)
[2020-07-12 16:01] LABS: Anion Gap 17 (12-20); Blood Urea Nitrogen 18 mg/dL (9-16); Calcium 8.3 mg/dL (8.4-10.2); Carbon Dioxide 25 mmol/L (22-29); Chloride 95 mmol/L (96-108); Creatinine Clr Calc Pharmacy 54.7; Estimated Glomerular Filt Rate > 60; Glucose Random 95 mg/dL (60-115); Sodium 134 mmol/L (135-145)
[2020-07-12 17:10] LABS: Troponin-I High Sensitivity 23.5 ng/L (<3.5-17.0)
[2020-07-12 17:43] LABS: Anion Gap 17 (12-20); Blood Urea Nitrogen 19 mg/dL (9-16); Calcium 8.6 mg/dL (8.4-10.2); Carbon Dioxide 22 mmol/L (22-29); Chloride 98 mmol/L (96-108); Creatinine Clr Calc Pharmacy 51.9; Estimated Glomerular Filt Rate > 60; Glucose Random 118 mg/dL (60-115); Potassium 3.2 mmol/L (3.3-5.1); Sodium 134 mmol/L (135-145)
[2020-07-12] MEDS: Acetaminophen 325 MG TABLET 975 MG PO (18:03)
[2020-07-12] MEDS: ondansetron HCL 4 MG/2 ML VIAL IVPUSH (18:03)
--- NOTE | 2020-07-12 18:10 | PC.NURSE ---
Please call donaldo nobles, with updates [phone].
[2020-07-12] MEDS: 0.9 % Sodium Chloride 1,000 ML 999 ML IVCONT (19:25)
--- NOTE | 2020-07-12 21:25 | PC.NURSE ---
Ok per tashi emmanuel to increased rate of infusion
== END 2020-07-13 | disposition home or self-care (01) ==
PROVIDERS: Physician Assistant; Emergency Provider Emergency Medicine; PCP Internal Medicine
DX: U07.1 COVID-19 (principal); K57.30 Diverticulosis of large intestine without perforation or abscess without bleeding; E87.6 Hypokalemia; E86.0 Dehydration; R00.0 Tachycardia, unspecified; E11.9 Type 2 diabetes mellitus without complications; I10 Essential (primary) hypertension; K21.9 Gastro-esophageal reflux disease without esophagitis; J44.9 Chronic obstructive pulmonary disease, unspecified; Z86.718 Personal history of other venous thrombosis and embolism
CPT/HCPCS: 36415; 71045; 71275; 74177; 80048; 84484; 85025; 87635; 96361; 96365; 96366; 96374; 99284; 99291; J2405; Q9967

== ENCOUNTER 2020-07-23 11:08 | Inpatient (IN) | payer MEDICARE, MEDICAID, SELFPAY ==
[2020-07-23] VITALS (8 sets, daily range): BP systolic 115–149; BP diastolic 53–93; PULSE 96–183; RESP 16–18; TEMP 37.1–37.3; O2SAT 94–96; BMI 31.8
--- NOTE | 2020-07-23 | ECG_ITS ---
Test Reason : TACHYCARDIA Blood Pressure : / mmHG Vent. Rate : 147 BPM Atrial Rate : 202 BPM P-R Int : 000 ms QRS Dur : 106 ms QT Int : 286 ms P-R-T Axes : 000 -18 -27 degrees QTc Int : 447 ms Atrial fibrillation with rapid ventricular response Incomplete right bundle branch block Nonspecific ST and T wave abnormality Abnormal ECG When compared with ECG of 23-JUL-2020 12:13, No significant changes seen Referred By: Ashlyn Hilton Electronically Signed By:Nate Alexander
--- NOTE | 2020-07-23 | ECG_ITS ---
Test Reason : TACHYCARDIA Blood Pressure : / mmHG Vent. Rate : 107 BPM Atrial Rate : 108 BPM P-R Int : 132 ms QRS Dur : 110 ms QT Int : 370 ms P-R-T Axes : 049 -21 011 degrees QTc Int : 493 ms Sinus tachycardia with Premature atrial complexes Incomplete right bundle branch block Borderline ECG When compared with ECG of 23-JUL-2020 13:18, Sinus rhythm has replaced Atrial fibrillation Nonspecific T wave abnormality no longer evident in Anterior leads Referred By: Ashlyn Hilton Electronically Signed By:Nate Alexander
--- NOTE | ~2020-07-23 | XR_ITS ---
EXAMINATION: XR SHOULDER, LEFT CLINICAL INFORMATION: Pain COMPARISON: Previous x-ray March 2017 TECHNIQUE: Two views of the left shoulder. FINDINGS: No fracture or dislocation is seen. There is arthritis at the glenohumeral and acromioclavicular joints. Soft tissues are unremarkable. XR/XR shoulder LT min 2V IMPRESSION: Arthritis.
--- NOTE | ~2020-07-23 | XR_ITS ---
EXAMINATION: XR CHEST CLINICAL INFORMATION: Edema. COMPARISON: 07/12/2020 chest TECHNIQUE: Frontal view of the chest was obtained. FINDINGS: The lungs are hypoexpanded but clear. The heart size and pulmonary vascularity is normal. There is moderate degenerative changes both shoulder joints. No fracture seen. XR/XR chest 1V IMPRESSION: No acute cardiopulmonary process seen.
--- NOTE | 2020-07-23 12:20 | ECG_ITS ---
Test Reason : TACHYCARDIA Blood Pressure : / mmHG Vent. Rate : 183 BPM Atrial Rate : 197 BPM P-R Int : 000 ms QRS Dur : 106 ms QT Int : 246 ms P-R-T Axes : 000 -21 -54 degrees QTc Int : 429 ms Afib with RVR Incomplete right bundle branch block ST & T wave abnormality, consider inferior ischemia Abnormal ECG When compared with ECG of 11-JUN-2018 18:36, Afib present Referred By: Ashlyn Hilton Electronically Signed By:Nate Alexander
[2020-07-23] MEDS: Adenosine 6 MG/2 ML VIAL IVPUSH (12:26)
[2020-07-23] MEDS: dilTIAZem HCL 50 MG/10 ML VIAL 20 MG IVPUSH ×2 (12:37→12:50)
[2020-07-23 13:15] LABS: Basophils Percent Auto 0.2 % (0-2); Eosinophils Absolute Auto 0.1 X10*3/uL (0.0-0.4); Eosinophils Percent Auto 0.4 % (0-4); Hematocrit 31.5 % (37-47); Hemoglobin 10.1 g/dl (12.0-16.0); Imm Gran Abs Auto 0.11 X10*3/uL (0.00-0.03); Imm Gran Pct Auto 0.7 % (0.0-0.4); Lymphocytes Absolute Auto 3.7 X10*3/uL (1.2-4.9); Lymphocytes Percent Auto 22.6 % (20-40); MANUAL DIFF FLAG SCAN; Mean Corpuscular HGB Conc 32.1 g/dl (31.0-35.0); Mean Corpuscular Hemoglobin 25.1 pg (27.0-33.0); Mean Corpuscular Volume 78.4 fL (80-98); Mean Platelet Volume 9.5 fL (9.4-12.3); Monocytes Absolute Auto 1.9 X10*3/uL (0.1-1.2); Monocytes Percent Auto 11.6 % (2-11); Neutrophils Absolute Auto 10.6 X10*3/uL (2.0-8.3); Neutrophils Percent Auto 64.5 % (45-73); Platelet Count 387 X10*3/uL (160-400); Red Blood Count 4.02 X10*6/uL (4.20-5.50); Red Cell Distribution Width 18.3 % (11.0-16.0); SCAN SMEAR FLAG 1; White Blood Count 16.4 X10*3/uL (4.8-10.8)
[2020-07-23 13:20] LABS: INTERNATIONAL NORM RATIO 1.2 (0.9-1.1); Prothrombin Time 14.6 SEC (10.8-13.0)
[2020-07-23 13:44] LABS: SLIDE REVIEW VERIFIED
--- NOTE | 2020-07-23 13:51 | ED.GENADULT ---
HPI - General Adult General Chief complaint: General Medical Stated complaint: tachycardia Time Seen by Provider: 07/23/20 12:19 Source: patient Mode of arrival: ambulatory Limitations: no limitations History of Present Illness HPI narrative: Patient comes to emergency room complaining of left shoulder pain. However, prior to arrival, patient was seen at urgent care for left shoulder pain. Patient states she has had multiple episodes of gout flare-up. When her vitals were taken, patient had a heart rate of 170, patient was sent to the emergency room. Patient states that she has no chest pain, no shortness of breath, no palpitations. On arrival, patient's heart rate was between 172-200. Related Data Home Medications Medication Instructions Recorded Confirmed acetaminophen 300 mg-codeine 30 mg 1 tab PO Q6H PRN 01/30/20 07/12/20 tablet allopurinol 100 mg tablet 100 mg PO DAILY 01/30/20 07/12/20 azelastine 137 mcg (0.1 %) nasal 1 spray INTRANASAL DAILY 01/30/20 07/12/20 spray aerosol chlorthalidone 25 mg tablet 25 mg PO DAILY 01/30/20 01/30/20 flu vacc 2019-(65yr ml IM 01/30/20 07/12/20 up)-MF59C(PF) 60 mcg(15 mcgx4)/0.5 mL IM syringe fluocinonide 0.05 % topical cream applic TOPICAL BID 01/30/20 07/12/20 gabapentin 100 mg capsule 100 mg PO TID 01/30/20 07/12/20 magnesium oxide 400 mg (241.3 mg 400 mg PO BID 01/30/20 07/12/20 magnesium) tablet omeprazole 20 mg capsule,delayed 20 mg PO BID 01/30/20 07/12/20 release Previous Rx's Medication Instructions Recorded potassium chloride 20 mEq 20 meq PO DAILY #90 tab 01/30/20 tablet,extended release(part/cryst) pantoprazole 40 mg tablet,delayed 40 mg PO DAILY #90 ea 02/25/20 release Nasonex 50 mcg/actuation [place] 2 spray INTRANASAL DAILY #51 g NS 03/11/20 budesonide 180 mcg/actuation 1 inh PO BID #1 ea 03/31/20 breath activated powder inhaler montelukast 10 mg tablet 10 mg PO BEDTIME #30 tab 03/31/20 rosuvastatin 20 mg tablet 20 mg PO BEDTIME #30 tab 03/31/20 Serevent Diskus 50 mcg/dose powder 1 inh PO BID 90 Days ea NS 04/01/20 for inhalation sitagliptin 50 mg-metformin 500 mg 1 tab PO BID 30 Days #60 tab 04/03/20 tablet blood-glucose meter #1 ea 04/09/20 albuterol sulfate 90 mcg/actuation 2 inh INHALATION Q4-6H PRN 90 Days 04/23/20 breath activated powder inhaler #1 ea budesonide 180 mcg/actuation 1 inh INHALATION DAILY 90 Days #1 04/23/20 breath activated powder inhaler ea epinephrine [EpiPen] 0.3 mg IM ONCE PRN #1 ea 05/02/20 prednisone 40 mg PO DAILY #10 tab 05/02/20 duloxetine 30 mg capsule,delayed 30 mg PO BID #180 ea 05/23/20 release azithromycin 250 mg tablet See Rx Instructions PO .COMPLEX #6 07/09/20 tab acetaminophen-codeine 1 tab PO Q8H PRN #10 tab 07/12/20 doxycycline monohydrate 100 mg PO BID 10 Days #20 cap 07/12/20 ondansetron HCl [Zofran] 4 mg PO Q8H PRN #14 tab 07/12/20 prednisone 40 mg PO DAILY 5 Days #10 tab 07/12/20 losartan 50 mg tablet 50 mg PO DAILY #90 tab 07/14/20 albuterol sulfate 2.5 mg INHALATION Q6H PRN #180 ml 07/15/20 alprazolam 0.25 mg tablet 0.25 mg PO DAILY PRN #90 tab 07/18/20 Allergies Allergy/AdvReac Type Severity Reaction Status Date / Time acetaminophen [From Percocet] Allergy Severe Nausea and Verified 07/12/20 11:17 Vomiting Penicillins [PENICILLINS] Allergy Intermediate rash Verified 07/12/20 11:17 aspirin [ASPIRIN] Allergy Mild SWELLING Verified 07/12/20 11:17 enoxaparin [From LOVENOX] Allergy Unknown INTERNAL Verified 07/12/20 11:17 BLEEDING heparin [HEPARIN] Allergy Unknown INTERNAL Verified 07/12/20 11:17 BLEEDING meperidine [Demerol] Allergy Unknown Nausea and Verified 07/12/20 11:17 Vomiting oxycodone Allergy Unknown Nausea and Verified 07/12/20 11:17 Vomiting penicillin V Allergy Unknown rash Verified 07/12/20 11:17 Sulfa (Sulfonamide Allergy Unknown NAUSEA & Verified 07/12/20 11:17 Antibiotics) VOMITING, [SULFA (SULFONAMIDE GI upset ANTIBIOTICS)] warfarin [WARFARIN] AdvReac Severe UNKNOWN Verified 07/12/20 11:17 ibuprofen AdvReac Unknown GI bleed Verified 07/12/20 11:17 Review of Systems Review of Systems: Constitutional : No Weight loss, No Fever, No Chills, No Night Sweats, No Fatigue, No Malaise ENT/Mouth : No Hearing loss, No Ear Pain, No Nasal Congestion, No Sinus Pain, No Hoarseness, No sore throat, No Rhinorrhea, No Swallowing Difficulty Eyes: No Eye Pain, No Swelling, No Redness, No Foreign Body, No Discharge, No Vision Changes Cardiovascular : No Chest Pain, No SOB, No Dyspnea on Exertion, No Orthopnea, No Edema, No Palpitations, was told today that her heart rate is fast, asymptomatic Respiratory : No Cough, No Sputum, No Wheezing, No Smoke Exposure, No Dyspnea Gastrointestinal : No Nausea, No Vomiting, No Diarrhea, No Constipation, No abdominal Pain, No Hematochezia, No Melena Genitourinary : no irregular bleeding, No Dysuria, No Urinary Frequency, No Hematuria, No Urinary Incontinence, No Urgency, No Flank Pain, No Urinary Flow Changes, No Hesitancy Musculoskeletal complaining of left shoulder pain, no trauma, No Myalgias, No Joint Swelling Skin : No Skin Lesions, No rash Neuro : No Weakness, No Numbness, No Paresthesias, No Loss of Consciousness, No Dizziness, No Headache Psych : No Anxiety/Panic, No Depression, No SI/HI/AH/VH, No Social Issues, Heme/Lymph: No Bruising, No Bleeding,No Lymphadenopathy Endocrine : No Polyuria, No Polydipsia, No Temperature Intolerance ON LICENSE OF [facility] Past Medical History Medical History Allergic rhinitis 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 Sister CVA (cerebral vascular accident) Daughter Brain tumor Diabetes Bipolar 1 disorder Heart abnormality Mental illness in member of household Social History Social History Alcohol intake: never Smoking Status: Former smoker Years Smoked: 10 yrs Advance Directives: No Advance Directives Information Provided: No Physical Exam Vital Signs: Vital Signs: Last Vital Signs Temp 98.7 F 07/23/20 15:47 Pulse 113 H 07/23/20 15:47 Resp 18 07/23/20 15:47 BP 149/80 H 07/23/20 15:47 Pulse Ox 96 07/23/20 15:47 Body Mass Index 31.8 Appearance: Alert. Oriented X3. No acute distress. Eyes: Pupils equal, round and reactive to light. ENT: Pharynx normal. Neck: Normal inspection. Neck supple. No lymph nodes noted. No crepitus CVS: Tachycardic , regular Respiratory: No respiratory distress. Breath sounds normal. No Wheezing. No rales Abdomen: Soft and nontender. No rigidity. No distention. good BS x4 Skin: Skin warm and dry. Normal skin color. Normal skin turgor. Extremities: No lower extremity edema. No lower extremity edema. No Lacerations. No Rash Neuro: Oriented X 3. No motor deficit. No sensory deficit. Moving all extermities. No slurred speech. Course Course Course Narrative: Initially patient received 6 mg of adenosine, then a subsequent dose of 12 mg. Patient's heart rate dropped to 120 for a few seconds but then increased to 170 again. Then patient received 1 dose of 20 mg IV Cardizem, heart rate was briefly controlled for 5 minutes at the most, then the heart rate increased to 170 again, 2nd dose of Cardizem was given. I discussed the patient with Dr. Alexander, at this time will give 5 mg IV of metoprolol. Patient's heart rate decreased to 100. Blood pressure remains stable at 131/74. Although labs are still pending Patient has low magnesium and low potassium, has been repleted. I spoke with Dr. Triana, patient being admitted Medical Decision Making Lab Data Result diagrams: 07/23/20 13:06 07/23/20 13:05 Labs: Lab Results 07/23/20 07/23/20 07/23/20 Range/Units 13:05 13:05 13:05 WBC (4.8-10.8) X10*3/uL RBC (4.20-5.50) X10*6/uL Hgb (12.0-16.0) g/dl Hct (37-47) % MCV (80-98) fL MCH (27.0-33.0) pg MCHC (31.0-35.0) g/dl RDW (11.0-16.0) % Plt Count (160-400) X10*3/uL MPV (9.4-12.3) fL Immature Gran % (Auto) (0.0-0.4) % Neut % (Auto) (45-73) % Lymph % (Auto) (20-40) % [place] % (Auto) (2-11) % Eos % (Auto) (0-4) % Baso % (Auto) (0-2) % Lymph # (Auto) (1.2-4.9) X10*3/uL [place] # (Auto) (0.1-1.2) X10*3/uL Eos # (Auto) (0.0-0.4) X10*3/uL Baso # (Auto) (0.0-0.2) X10*3/uL Abs Immat Gran (auto) (0.00-0.03) X10*3/uL Absolute Neuts (auto) (2.0-8.3) X10*3/uL Absolute Nucleated RBC (0.0-0.012) X10*3/uL Nucleated RBC % (auto) (0.0-0.2) /100WBC Smear Tech's Comments PT 14.6 H (10.8-13.0) SEC INR 1.2 H (0.9-1.1) Sodium 138 (135-145) mmol/L Potassium 3.2 L (3.3-5.1) mmol/L Chloride 100 (96-108) mmol/L Carbon Dioxide 24 (22-29) mmol/L Anion Gap 17 (12-20) BUN 15 (9-16) mg/dL Creatinine 0.68 (0.5-1.4) mg/dL Estim Creat Clear Calc 60.2 Estimated GFR > 60 Random Glucose 135 H (60-115) mg/dL Uric Acid 3.4 (2.4-5.7) mg/dL Calcium 8.2 L (8.4-10.2) mg/dL Magnesium 1.4 L* (1.6-2.6) mg/dL Troponin I High Sens < 3.5 D (<3.5-17.0) ng/L B-Natriuretic Peptide 70 (<100) pg/mL 07/23/20 Range/Units 13:06 WBC 16.4 H (4.8-10.8) X10*3/uL RBC 4.02 L (4.20-5.50) X10*6/uL Hgb 10.1 L (12.0-16.0) g/dl Hct 31.5 L (37-47) % MCV 78.4 L (80-98) fL MCH 25.1 L (27.0-33.0) pg MCHC 32.1 (31.0-35.0) g/dl RDW 18.3 H (11.0-16.0) % Plt Count 387 D (160-400) X10*3/uL MPV 9.5 (9.4-12.3) fL Immature Gran % (Auto) 0.7 H (0.0-0.4) % Neut % (Auto) 64.5 (45-73) % Lymph % (Auto) 22.6 (20-40) % [place] % (Auto) 11.6 H (2-11) % Eos % (Auto) 0.4 (0-4) % Baso % (Auto) 0.2 (0-2) % Lymph # (Auto) 3.7 (1.2-4.9) X10*3/uL [place] # (Auto) 1.9 H (0.1-1.2) X10*3/uL Eos # (Auto) 0.1 (0.0-0.4) X10*3/uL Baso # (Auto) 0.0 (0.0-0.2) X10*3/uL Abs Immat Gran (auto) 0.11 H (0.00-0.03) X10*3/uL Absolute Neuts (auto) 10.6 H (2.0-8.3) X10*3/uL Absolute Nucleated RBC 0.000 (0.0-0.012) X10*3/uL Nucleated RBC % (auto) 0.0 (0.0-0.2) /100WBC Smear Tech's Comments VERIFIED PT (10.8-13.0) SEC INR (0.9-1.1) Sodium (135-145) mmol/L Potassium (3.3-5.1) mmol/L Chloride (96-108) mmol/L Carbon Dioxide (22-29) mmol/L Anion Gap (12-20) BUN (9-16) mg/dL Creatinine (0.5-1.4) mg/dL Estim Creat Clear Calc Estimated GFR Random Glucose (60-115) mg/dL Uric Acid (2.4-5.7) mg/dL Calcium (8.4-10.2) mg/dL Magnesium (1.6-2.6) mg/dL Troponin I High Sens (<3.5-17.0) ng/L B-Natriuretic Peptide (<100) pg/mL Imaging Data Chest x-ray: Radiologist's impression: The lungs are hypoexpanded but clear. The heart size and pulmonary vascularity is normal. There is moderate degenerative changes both shoulder joints. No fracture seen. XR/XR chest 1V IMPRESSION: No acute cardiopulmonary process seen. Shoulder x-ray: Radiologist's impression: No fracture or dislocation is seen. There is arthritis at the glenohumeral and acromioclavicular joints. Soft tissues are unremarkable. XR/XR shoulder LT min 2V IMPRESSION: Arthritis. ECG Data Attestation: I personally reviewed and interpreted this ECG as follows: (Supraventricular tachycardia, heart rate 183, QTC 429, rhythm difficult to analyze, SVT versus AFib versus atrial flutter, EKG at 13:39 shows sinus tachycardia, heart rate 107, no ST segment depression or elevation, QTC 493) Discharge Plan Discharge Clinical Impression: Left shoulder pain, Hypomagnesemia, Hypokalemia, Atrial fibrillation with RVR Patient Disposition: Admitted As Inpatient
[2020-07-23 13:55] LABS: B Type Natriuretic Peptide 70 pg/mL (<100); Troponin-I High Sensitivity < 3.5 ng/L (<3.5-17.0)
[2020-07-23] MEDS: ondansetron HCL 4 MG/2 ML VIAL IVPUSH (14:13)
[2020-07-23] MEDS: Metoprolol Tartrate 5 MG/5 ML VIAL IVPUSH (14:17)
[2020-07-23 14:34] LABS: Uric Acid 3.4 mg/dL (2.4-5.7)
--- NOTE | 2020-07-23 14:37 | PC.NURSE ---
PT SENT TO ED DUE TO RAPID HR AT [facility]. ON ARRIVAL PT APPEARS TO BE IN SVT. DENINES SOB. 1213 EKG SHOWED SVT ADENOSINE GIVEN PERIODS OF DECREASED HR THEN RETURN TO SVT. DILTIAZEM GIVEN 1318 PT FLIPPED TO AFIB 1339 PT SINUS TACH WITH PAC
[2020-07-23 14:43] LABS: Anion Gap 17 (12-20); Blood Urea Nitrogen 15 mg/dL (9-16); Calcium 8.2 mg/dL (8.4-10.2); Carbon Dioxide 24 mmol/L (22-29); Chloride 100 mmol/L (96-108); Creatinine Clr Calc Pharmacy 60.2; Estimated Glomerular Filt Rate > 60; Glucose Random 135 mg/dL (60-115); Magnesium 1.4 mg/dL (1.6-2.6); Potassium 3.2 mmol/L (3.3-5.1); Sodium 138 mmol/L (135-145)
[2020-07-23] MEDS: traMADoL HCL 50 MG TABLET PO (15:54)
--- NOTE | 2020-07-23 16:54 | PM.IMHP ---
History of Present Illness Date of Service: 07/23/20 Chief Complaint: Shoulder pain, tachycardia, leukocytosis A 80 years old lady with PMH of COPD, angioedema, GERD, type 2 diabetes, HTN among others who presented to the hospital you as a referral from Urgent Care for symptomatic tachycardia. The patient point to the urgent care for evaluation of left shoulder pain and decreased range of motion were she was found to be tachycardic with associated tachypnea. She was sent by ambulance to the emergency as the initial EKG was concerning for possible SVT that responded after multiple IV doses of Cardizem and metoprolol. An EKG done in between showing possible atrial fibrillation with RVR. Heart rate control in the emergency. She was complaining mainly of the left shoulder pain. Is a chronic problem but seems to be worse recently. Denies any fever, chills but reported pain in moving the shoulder. Leukocytosis, hypokalemia and hypomagnesemia was done in the emergency. Admitted for further evaluation and treatment. 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 Sister CVA (cerebral vascular accident) Daughter Brain tumor Diabetes Bipolar 1 disorder Heart abnormality Mental illness in member of household Surgical History H/O local excision of skin lesion Social History Alcohol intake: never Smoking Status: Former smoker Years Smoked: 10 yrs Advance Directives: No Advance Directives Information Provided: No Meds Allergies Allergy/AdvReac Type Severity Reaction Status Date / Time acetaminophen [From Percocet] Allergy Severe Nausea and Verified 07/12/20 11:17 Vomiting Penicillins [PENICILLINS] Allergy Intermediate rash Verified 07/12/20 11:17 aspirin [ASPIRIN] Allergy Mild SWELLING Verified 07/12/20 11:17 enoxaparin [From LOVENOX] Allergy Unknown INTERNAL Verified 07/12/20 11:17 BLEEDING heparin [HEPARIN] Allergy Unknown INTERNAL Verified 07/12/20 11:17 BLEEDING meperidine [Demerol] Allergy Unknown Nausea and Verified 07/12/20 11:17 Vomiting oxycodone Allergy Unknown Nausea and Verified 07/12/20 11:17 Vomiting penicillin V Allergy Unknown rash Verified 07/12/20 11:17 Sulfa (Sulfonamide Allergy Unknown NAUSEA & Verified 07/12/20 11:17 Antibiotics) VOMITING, [SULFA (SULFONAMIDE GI upset ANTIBIOTICS)] warfarin [WARFARIN] AdvReac Severe UNKNOWN Verified 07/12/20 11:17 ibuprofen AdvReac Unknown GI bleed Verified 07/12/20 11:17 Active Medications: Current Medications Generic Name Dose Route Start Last Admin Trade Name Freq PRN Reason Stop Dose Admin Pharmacy Consult 1 each 07/23/20 16:31 Consult Rx Perform Med Rec MISCELLANE ONCE PRN Consult order Home Medications Medication Instructions Recorded Confirmed Last Taken Type allopurinol 100 mg tablet 100 mg PO DAILY 01/30/20 07/12/20 Unknown History chlorthalidone 25 mg tablet 25 mg PO DAILY 01/30/20 01/30/20 Unknown History magnesium oxide 400 mg (241.3 mg 400 mg PO BID 01/30/20 07/12/20 Unknown History magnesium) tablet budesonide 1 inh INHALATION BID 07/23/20 07/23/20 Unknown History Physical Exam Vital Signs and Narrative: Vital Signs: Last Vital Signs Temp 98.7 F 07/23/20 15:47 Pulse 113 H 07/23/20 15:47 Resp 18 07/23/20 15:47 BP 149/80 H 07/23/20 15:47 Pulse Ox 96 07/23/20 15:47 Body Mass Index 31.8 Const: Other: Constitutional : Alert, oriented, not in distress Neck : Normal inspection, Supple Cardiovascular : RRR, S1 S2, no lower extremity edema Respiratory : Good bilateral air entry, no crackles, wheezes or rhonchi Gastrointestinal: soft, lax, Normal bowel sounds, Non tender Skin : Warm/Dry, No rash Muscular, left shoulder pain with minimal movement, no erythema, no significant effusion noted Neurological : Alert & oriented x3, No focal deficit Results Labs CBC and Chem 7: 07/23/20 13:06 07/23/20 13:05 Labs: Laboratory Results - last 24 hr 07/23/20 07/23/20 07/23/20 13:05 13:05 13:05 MCV MCH MCHC RDW Plt Count MPV Immature Gran % (Auto) Neut % (Auto) Lymph % (Auto) [place] % (Auto) Eos % (Auto) Baso % (Auto) Lymph # (Auto) [place] # (Auto) Eos # (Auto) Baso # (Auto) Abs Immat Gran (auto) Absolute Neuts (auto) Absolute Nucleated RBC Nucleated RBC % (auto) Smear Tech's Comments PT 14.6 H INR 1.2 H Anion Gap 17 Estim Creat Clear Calc 60.2 Estimated GFR > 60 Random Glucose 135 H Uric Acid 3.4 Calcium 8.2 L Magnesium 1.4 L* Troponin I High Sens < 3.5 D B-Natriuretic Peptide 70 07/23/20 13:06 MCV 78.4 L MCH 25.1 L MCHC 32.1 RDW 18.3 H Plt Count 387 D MPV 9.5 Immature Gran % (Auto) 0.7 H Neut % (Auto) 64.5 Lymph % (Auto) 22.6 [place] % (Auto) 11.6 H Eos % (Auto) 0.4 Baso % (Auto) 0.2 Lymph # (Auto) 3.7 [place] # (Auto) 1.9 H Eos # (Auto) 0.1 Baso # (Auto) 0.0 Abs Immat Gran (auto) 0.11 H Absolute Neuts (auto) 10.6 H Absolute Nucleated RBC 0.000 Nucleated RBC % (auto) 0.0 Smear Tech's Comments VERIFIED PT INR Anion Gap Estim Creat Clear Calc Estimated GFR Random Glucose Uric Acid Calcium Magnesium Troponin I High Sens B-Natriuretic Peptide Imaging Radiologist's Impressions: Impressions Chest X-Ray 07/23/20 12:27 IMPRESSION: No acute cardiopulmonary process seen. Shoulder X-Ray 07/23/20 13:51 IMPRESSION: Arthritis. Assessment and Plan (1) Left shoulder pain: Status: Acute (2) Hypomagnesemia: Status: Acute (3) Hypokalemia: Status: Acute (4) Tachycardia: Status: Acute A 80 years old lady with PMH of COPD, angioedema, GERD, type 2 diabetes, HTN among others who presented to the hospital you as a referral from Urgent Care for symptomatic tachycardia. Symptomatic tachycardia SVT BS AFib with RVR Multiple doses of Cardizem, metoprolol given in ED with fair response Continue metoprolol XL for now next Lyme keep on telemetry Cardiology evaluation the morning Left shoulder pain X-ray showing arthritis Low risk for septic arthritis, to get orthopedic evaluation the morning Hypomagnesemia Hypokalemia Replacement given, to monitor BMP Leukocytosis Medication reconciliation not done yet, seems she was on prednisone recently No clear source of infection Check urine Diabetes SSI DVT PPX SCDs, has reported allergy to heparin and Lovenox.
[2020-07-23] MEDS: Potassium Chloride Packet 20 MEQ PACKET 40 MEQ PO (17:18)
[2020-07-23] MEDS: Magnesium Sulfate/H2O 2 GM/50 ML PIGGYBACK IV (17:19)
[2020-07-23 17:43] LABS: Erythrocyte Sedimentation Rate 87 MM/HR (0-20)
--- NOTE | 2020-07-23 19:15 | PC.NURSE ---
ASSUMED CARE OF PT. PT RESTING IN STRETCHER WITH DAUGHTER AT BEDSIDE. PT AWAITING FOR ROOM ASSIGNMENT. COVID SWAB OBTAINED TO LAB. PT DENIES ANY COMPLAINTS. WILL CONTINUE TO MONITOR PT.
[2020-07-23 19:52] LABS: COVID-19 Test Negative (Negative)
[2020-07-23 22:11] LABS: Glucose Urine UA NEG (NEG); Leukocyte Esterase Urine NEG (NEG); Nitrite Urine NEG (NEG); PH 6.5 (5.0-8.0); Urine Blood NEG (NEG); Urine Ketones NEG (NEG); Urine Protein NEG (NEG-TRACE)
[2020-07-23 22:13] LABS: Appearance Urine CLEAR; Color Urine YELLOW
--- NOTE | 2020-07-23 23:03 | PC.NURSE ---
PT IS CRYING IN STRETCHER C/O PAIN TO LEFT SHOULDER, HOSPITALIST AWARE OF PAIN. PT WANTS TYLENOL BUT HAS AN ALLERGY NOTED FOR ACETAMINOPHEN. PT YELLING AT STAFF AND CRYING STATING NO ONE WANTS TO HELP ME . PT REFUSING MORPHINE WHICH IS ORDERED FOR PT. AWAITING FOR GIVE REPORT TO FLOOR AT THIS TIME.
--- NOTE | 2020-07-23 23:09 | PC.NURSE ---
REPORT GIVEN TO FLOOR.
--- NOTE | 2020-07-23 23:15 | PC.NURSE ---
PT IS REFUSING TO PUT ON GOWN. PT STATES I DON'T WANT YOUR HELP PT IS YELLING AT STAFF AND STATES ARMANDO BEEN WAITING FOR A LONG TIME AND NO ONE HELPS ME
--- NOTE | 2020-07-23 23:17 | PC.NURSE ---
REPORT GIVEN TO JORDYN MOISE. PT TO FLOOR IN STRETCHER AT THIS TIME.
--- NOTE | 2020-07-23 23:19 | PC.NURSE ---
PT GOT INTO HER PURSE AND TOOK 2 TYLENOL WHEN NURSE WALKED INTO ROOM.
[2020-07-24] VITALS (8 sets, daily range): BP systolic 118–143; BP diastolic 55–73; PULSE 68–109; RESP 16–20; TEMP 36.1–37.7; O2SAT 92–98; BMI 31.8
[2020-07-24 00:26] LABS: Glucose, Whole Blood 135 mg/dL (60-115)
[2020-07-24] MEDS: DULoxetine HCl 30 MG CAPSULE.DR PO ×3 (01:10→22:35)
[2020-07-24] MEDS: 0.9 % Sodium Chloride Flush 3 ML SYRINGE IVFLUSH ×4 (01:10→22:35)
[2020-07-24] MEDS: Magnesium Oxide 400 MG TABLET 800 MG PO ×2 (01:10→09:34)
[2020-07-24] MEDS: Metoprolol Succinate ER 50 MG TAB.ER.24H PO ×2 (01:10→09:34)
[2020-07-24] MEDS: ALPRAZolam 0.25 MG TABLET PO (01:10)
[2020-07-24] MEDS: Montelukast Sodium 10 MG TABLET PO ×2 (01:10→22:35)
[2020-07-24] MEDS: Omeprazole 20 MG CAPSULE.DR PO ×2 (06:28→16:33)
[2020-07-24 06:51] LABS: Basophils Percent Auto 0.2 % (0-2); Hematocrit 31.8 % (37-47); MANUAL DIFF FLAG SCAN; SCAN SMEAR FLAG 1
[2020-07-24 07:09] LABS: Eosinophils Absolute Auto 0.1 X10*3/uL (0.0-0.4); Eosinophils Percent Auto 0.8 % (0-4); Hemoglobin 10.1 g/dl (12.0-16.0); Imm Gran Abs Auto 0.08 X10*3/uL (0.00-0.03); Imm Gran Pct Auto 0.6 % (0.0-0.4); Lymphocytes Absolute Auto 3.5 X10*3/uL (1.2-4.9); Lymphocytes Percent Auto 25.1 % (20-40); Mean Corpuscular HGB Conc 31.8 g/dl (31.0-35.0); Mean Corpuscular Hemoglobin 25.3 pg (27.0-33.0); Mean Corpuscular Volume 79.5 fL (80-98); Mean Platelet Volume 10.8 fL (9.4-12.3); Monocytes Absolute Auto 1.8 X10*3/uL (0.1-1.2); Monocytes Percent Auto 13.1 % (2-11); Neutrophils Absolute Auto 8.5 X10*3/uL (2.0-8.3); Neutrophils Percent Auto 60.2 % (45-73); Platelet Count 388 X10*3/uL (160-400); Red Cell Distribution Width 19.1 % (11.0-16.0); White Blood Count 14.1 X10*3/uL (4.8-10.8)
[2020-07-24 07:18] LABS: Glucose, Whole Blood 116 mg/dL (60-115)
[2020-07-24 07:32] LABS: SLIDE REVIEW VERIFIED
[2020-07-24 07:47] LABS: Anion Gap 14 (12-20); Blood Urea Nitrogen 13 mg/dL (9-16); Calcium 8.2 mg/dL (8.4-10.2); Carbon Dioxide 29 mmol/L (22-29); Chloride 100 mmol/L (96-108); Creatinine Clr Calc Pharmacy 60.2; Estimated Glomerular Filt Rate > 60; Glucose Random 131 mg/dL (60-115); Potassium 3.5 mmol/L (3.3-5.1); Sodium 139 mmol/L (135-145)
[2020-07-24 08:20] LABS: Magnesium 1.6 mg/dL (1.6-2.6)
[2020-07-24] MEDS: Potassium Chloride ER 20 MEQ TAB.ER.PRT PO (09:33)
[2020-07-24] MEDS: allopurinoL 100 MG TABLET PO (09:33)
[2020-07-24 11:05] LABS: Glucose, Whole Blood 172 mg/dL (60-115)
--- NOTE | 2020-07-24 11:16 | PM.CNCAR ---
History of Present Illness History of Present Illness Date of Service: 07/24/20 Requesting physician: Magalie Pierre Chief complaint: Atrial fibrillation Narrative: Pleasant 80-year-old female who follows up at [facility] with Dr. Huseyin Tanner. She has background history of COPD, gastroesophageal reflux disease, anxiety disorder, hypertension, hyperlipidemia and diabetes. No history of CVA in the past. She is presenting with palpitation tachycardia. She was noticed to have significantly fast supraventricular arrhythmia and was given adenosine without any improvement. After that she was given Cardizem which did not break the rhythm too. Subsequent to that she got 5 mg of IV metoprolol and she broke into sinus rhythm. On reviewing her EKGs the 2nd EKG recorded yesterday clearly shows atrial fibrillation with rapid ventricular response. She is in sinus rhythm right now. She had peptic ulcer disease and bleeding which required removal of part of her stomach when she was 23 years old. She has not had any more bleeding but is quite concerned about bleeding. 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 Sister CVA (cerebral vascular accident) Daughter Brain tumor Diabetes Bipolar 1 disorder Heart abnormality Mental illness in member of household Surgical History Surgical History H/O local excision of skin lesion Social History Social History Household Members: Family Housing: House Do you presently have visiting nurse or other home services: No Alcohol intake: never Smoking Status: Never smoker Years Smoked: 10 yrs Second Hand Smoke Exposure: Yes Use of substances other than those prescribed or required for medical reasons: No Currently Displaying Signs/Symptoms of Drug Intoxication Withdrawal: No Any prior treatment program specific to substance use: No Have you been hit, kicked, punched, or otherwise hurt by someone within the past year? If so, by whom?: No Do you feel safe in your current relationship?: No Current Relationship Is there a partner from a previous relationship who is making you feel unsafe now?: No Are you made to feel afraid or neglected: No Congregational Healthcare Practices: anabaptism Advance Directives: No Advance Directives Information Provided: No Do you have thoughts of harming others: None Do you have a plan to hurt others: No Plan Recently lost weight without trying: Unsure Meds Allergies Allergy/AdvReac Type Severity Reaction Status Date / Time acetaminophen [From Percocet] Allergy Severe Nausea and Verified 07/12/20 11:17 Vomiting Penicillins [PENICILLINS] Allergy Intermediate rash Verified 07/12/20 11:17 aspirin [ASPIRIN] Allergy Mild SWELLING Verified 07/12/20 11:17 enoxaparin [From LOVENOX] Allergy Unknown INTERNAL Verified 07/12/20 11:17 BLEEDING heparin [HEPARIN] Allergy Unknown INTERNAL Verified 07/12/20 11:17 BLEEDING meperidine [Demerol] Allergy Unknown Nausea and Verified 07/12/20 11:17 Vomiting oxycodone Allergy Unknown Nausea and Verified 07/12/20 11:17 Vomiting penicillin V Allergy Unknown rash Verified 07/12/20 11:17 Sulfa (Sulfonamide Allergy Unknown NAUSEA & Verified 07/12/20 11:17 Antibiotics) VOMITING, [SULFA (SULFONAMIDE GI upset ANTIBIOTICS)] warfarin [WARFARIN] AdvReac Severe UNKNOWN Verified 07/12/20 11:17 ibuprofen AdvReac Unknown GI bleed Verified 07/12/20 11:17 Active Medications: Current Medications Generic Name Dose Route Start Last Admin Trade Name Freq PRN Reason Stop Dose Admin Acetaminophen 650 mg 07/23/20 23:39 Acetaminophen 325 Mg Tablet PO Q6H PRN Pain, Mild (Pain Scale 1-3) Albuterol Sulfate 1.25 mg 07/23/20 23:39 Albuterol Sulfate (0.042%) 1.25 Mg/3 Ml Vial.Neb INHALE RQ4H PRN Shortness of Breath/Wheezing Allopurinol 100 mg 07/24/20 09:00 07/24/20 09:33 Allopurinol 100 Mg Tablet PO 100 mg DAILY [place] Administration Alprazolam 0.25 mg 07/23/20 23:39 07/24/20 01:10 Alprazolam 0.25 Mg Tablet PO 0.25 mg DAILY PRN Administration anxiety Budesonide 1 puff 07/23/20 23:39 07/24/20 02:51 Budesonide 180 Mcg Aer.Pow.Ba INHALE Not Given RBID [place] Duloxetine HCl 30 mg 07/23/20 23:39 07/24/20 09:34 Duloxetine Hcl 30 Mg Capsule. PO 30 mg BID [place] Administration Insulin Human Lispro 0 unit 07/24/20 11:30 Insulin Lispro 100 Unit/Ml 3 Ml Vial SUBCUT QIDACHS [facility] Protocol Magnesium Oxide 800 mg 07/23/20 23:39 07/24/20 09:34 Magnesium Oxide 400 Mg Tablet PO 800 mg DAILY [place] Administration Metoprolol Succinate 50 mg 07/23/20 23:39 07/24/20 09:34 Metoprolol Succinate Er 50 Mg Tab.Er.24h PO 50 mg DAILY [facility] Administration Protocol Montelukast Sodium 10 mg 07/23/20 23:39 07/24/20 01:10 Montelukast Sodium 10 Mg Tablet PO 10 mg BEDTIME [place] Administration Morphine Sulfate 15 mg 07/23/20 21:51 Morphine Sulfate Immed Release 15 Mg Tablet PO Q6H PRN Breakthrough Pain Omeprazole 20 mg 07/24/20 06:30 07/24/20 06:28 Omeprazole 20 Mg Capsule. PO 20 mg BID@0630,1630 [facility] Administration Ondansetron HCl 4 mg 07/23/20 23:39 Ondansetron Hcl 4 Mg/2 Ml Vial IVPUSH Q8H PRN Nausea and Vomiting Pharmacy Consult 1 each 07/23/20 16:31 Consult Rx Perform Med Rec MISCELLANE ONCE PRN Consult order Potassium Chloride 20 meq 07/24/20 09:00 07/24/20 09:33 Potassium Chloride Er 20 Meq Tab.Er.Prt PO 20 meq DAILY [facility] Administration Sodium Chloride 3 ml 07/24/20 00:00 07/24/20 09:32 0.9 % Sodium Chloride Flush 3 Ml Syringe IVFLUSH 3 ml QSHIFT [place] Administration Home Medications Medication Instructions Recorded Confirmed Last Taken Type allopurinol 100 mg tablet 100 mg PO DAILY 01/30/20 07/23/20 Unknown History chlorthalidone 25 mg tablet 25 mg PO DAILY 01/30/20 07/23/20 Unknown History magnesium oxide 400 mg (241.3 mg 400 mg PO BID 01/30/20 07/23/20 Unknown History magnesium) tablet budesonide 1 inh INHALATION BID 07/23/20 07/23/20 Unknown History Physical Exam Vital Signs: Vital Signs: Last Vital Signs Temp 97 F 07/24/20 10:51 Pulse 79 07/24/20 10:51 Resp 20 07/24/20 10:51 BP 123/55 L 07/24/20 10:51 Pulse Ox 95 07/24/20 10:51 Body Mass Index 31.8 GENERAL APPEARANCE: in no acute distress, well developed, well nourished. HEENT: unremarkable. HEAD: normocephalic, atraumatic. NECK/THYROID: no carotid bruit, no jugular venous distention. SKIN: no suspicious lesions, warm and dry. HEART: no murmurs, regular rate and rhythm, S1, S2 normal. LUNGS: clear to auscultation bilaterally. ABDOMEN: normal, bowel sounds present, soft, nontender, nondistended. EXTREMITIES: no clubbing, cyanosis, or edema. PERIPHERAL PULSES: equal. NEUROLOGIC: nonfocal, alert and oriented. PSYCH: mood/affect full range. Results Labs and Meds Result diagrams: 07/24/20 06:00 07/24/20 07:14 Lab results: Laboratory Results - last 24 hr 07/23/20 07/23/20 07/23/20 13:05 13:05 13:05 WBC RBC Hgb Hct MCV MCH MCHC RDW Plt Count MPV Immature Gran % (Auto) Neut % (Auto) Lymph % (Auto) [place] % (Auto) Eos % (Auto) Baso % (Auto) Lymph # (Auto) [place] # (Auto) Eos # (Auto) Baso # (Auto) Abs Immat Gran (auto) Absolute Neuts (auto) Absolute Nucleated RBC Nucleated RBC % (auto) Smear Tech's Comments ESR PT 14.6 H INR 1.2 H Sodium 138 Potassium 3.2 L Chloride 100 Carbon Dioxide 24 Anion Gap 17 BUN 15 Creatinine 0.68 Estim Creat Clear Calc 60.2 Estimated GFR > 60 POC Glucose Random Glucose 135 H Uric Acid 3.4 Calcium 8.2 L Magnesium 1.4 L* Troponin I High Sens < 3.5 D B-Natriuretic Peptide 70 Urine Color Urine Appearance Urine pH Ur Specific [place] Urine Protein Urine Glucose (UA) Urine Ketones Urine Blood Urine Nitrite Ur Leukocyte Esterase COVID-19 (ROSLYN) COVID-19 Clin Com 07/23/20 07/23/20 07/23/20 13:06 13:06 19:32 WBC 16.4 H RBC 4.02 L Hgb 10.1 L Hct 31.5 L MCV 78.4 L MCH 25.1 L MCHC 32.1 RDW 18.3 H Plt Count 387 D MPV 9.5 Immature Gran % (Auto) 0.7 H Neut % (Auto) 64.5 Lymph % (Auto) 22.6 [place] % (Auto) 11.6 H Eos % (Auto) 0.4 Baso % (Auto) 0.2 Lymph # (Auto) 3.7 [place] # (Auto) 1.9 H Eos # (Auto) 0.1 Baso # (Auto) 0.0 Abs Immat Gran (auto) 0.11 H Absolute Neuts (auto) 10.6 H Absolute Nucleated RBC 0.000 Nucleated RBC % (auto) 0.0 Smear Tech's Comments VERIFIED ESR 87 H PT INR Sodium Potassium Chloride Carbon Dioxide Anion Gap BUN Creatinine Estim Creat Clear Calc Estimated GFR POC Glucose Random Glucose Uric Acid Calcium Magnesium Troponin I High Sens B-Natriuretic Peptide Urine Color Urine Appearance Urine pH Ur Specific [place] Urine Protein Urine Glucose (UA) Urine Ketones Urine Blood Urine Nitrite Ur Leukocyte Esterase COVID-19 (ROSLYN) Negative COVID-19 Clin Com See Note 07/23/20 07/24/20 07/24/20 22:05 00:22 06:00 WBC 14.1 H RBC 4.00 L Hgb 10.1 L Hct 31.8 L MCV 79.5 L MCH 25.3 L MCHC 31.8 RDW 19.1 H Plt Count 388 MPV 10.8 Immature Gran % (Auto) 0.6 H Neut % (Auto) 60.2 Lymph % (Auto) 25.1 [place] % (Auto) 13.1 H Eos % (Auto) 0.8 Baso % (Auto) 0.2 Lymph # (Auto) 3.5 [place] # (Auto) 1.8 H Eos # (Auto) 0.1 Baso # (Auto) 0.0 Abs Immat Gran (auto) 0.08 H Absolute Neuts (auto) 8.5 H Absolute Nucleated RBC 0.000 Nucleated RBC % (auto) 0.0 Smear Tech's Comments VERIFIED ESR PT INR Sodium Potassium Chloride Carbon Dioxide Anion Gap BUN Creatinine Estim Creat Clear Calc Estimated GFR POC Glucose 135 H Random Glucose Uric Acid Calcium Magnesium Troponin I High Sens B-Natriuretic Peptide Urine Color YELLOW Urine Appearance CLEAR Urine pH 6.5 Ur Specific [place] 1.020 Urine Protein NEG Urine Glucose (UA) NEG Urine Ketones NEG Urine Blood NEG Urine Nitrite NEG Ur Leukocyte Esterase NEG COVID-19 (ROSLYN) COVID-19 Clin Com 07/24/20 07/24/20 07/24/20 07:01 07:14 10:51 WBC RBC Hgb Hct MCV MCH MCHC RDW Plt Count MPV Immature Gran % (Auto) Neut % (Auto) Lymph % (Auto) [place] % (Auto) Eos % (Auto) Baso % (Auto) Lymph # (Auto) [place] # (Auto) Eos # (Auto) Baso # (Auto) Abs Immat Gran (auto) Absolute Neuts (auto) Absolute Nucleated RBC Nucleated RBC % (auto) Smear Tech's Comments ESR PT INR Sodium 139 Potassium 3.5 Chloride 100 Carbon Dioxide 29 Anion Gap 14 BUN 13 Creatinine 0.68 Estim Creat Clear Calc 60.2 Estimated GFR > 60 POC Glucose 116 H 172 H Random Glucose 131 H Uric Acid Calcium 8.2 L Magnesium 1.6 Troponin I High Sens B-Natriuretic Peptide Urine Color Urine Appearance Urine pH Ur Specific [place] Urine Protein Urine Glucose (UA) Urine Ketones Urine Blood Urine Nitrite Ur Leukocyte Esterase COVID-19 (ROSLYN) COVID-19 Clin Com Imaging Radiologist's impression: Impressions Chest X-Ray 07/23/20 12:27 IMPRESSION: No acute cardiopulmonary process seen. Shoulder X-Ray 07/23/20 13:51 IMPRESSION: Arthritis. Assessment and Plan (1) PAF (paroxysmal atrial fibrillation): Status: Acute Pleasant 80-year-old female who presented with palpitations and was in atrial fibrillation with rapid ventricular response. She recently had COVID-19 infection and she was positive on July 12. She has high chads Vasc score. I have discussed with her that she needs anticoagulation but she is quite concerned. She said she had bleeding when she was 23 years old. I have tried to explain this to her that she has not had recent bleeding and is probably best to be on anticoagulation right now. She wants to think about it. 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 In any case she is in sinus rhythm right now. Please add metoprolol XL 25 mg once a day to her regimen. She can follow up with her primary tool and die supervisor Dr. Huseyin Tanner at [facility] once she is discharged. Thank you for allowing me to participate in the care of your patient. Please feel free to contact me if you have any questions.
[2020-07-24] MEDS: Insulin Lispro 100 UNIT/ML 3 ML VIAL SUBCUT (11:37)
[2020-07-24] MEDS: Acetaminophen 325 MG TABLET 650 MG PO ×2 (11:39→17:52)
--- NOTE | 2020-07-24 12:41 | MHC.CLN ---
RE: CONSULT NO SKIN IMPAIRMENTS NOTED ADARSH 18 DIET RX: 2GM NA-RECOMMEND ADDING 1500DM TO CURRENT DIET R/T HX DM SEE ALSO CLINICAL NUTRITION ASSESSMENT
--- NOTE | 2020-07-24 12:45 | PM.CNOR ---
History of Present Illness HPI Consult date: 07/24/20 Chief complaint: Atrial fibrillation Narrative: Ms Waddell is a 80 yo female with ongoing left shoulder pain. She denies injury. States he has had pain in the left shoulder for several years. She has difficultly with movement in all positions. Denies treatment to date. 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 Sister CVA (cerebral vascular accident) Daughter Brain tumor Diabetes Bipolar 1 disorder Heart abnormality Mental illness in member of household Surgical History Surgical History H/O local excision of skin lesion Social History Social History Household Members: Family Housing: House Alcohol intake: never Smoking Status: Never smoker Years Smoked: 10 yrs Second Hand Smoke Exposure: Yes service: No Current occupational status: retired Meds Allergies Allergy/AdvReac Type Severity Reaction Status Date / Time acetaminophen [From Percocet] Allergy Severe Nausea and Verified 07/12/20 11:17 Vomiting Penicillins [PENICILLINS] Allergy Intermediate rash Verified 07/12/20 11:17 aspirin [ASPIRIN] Allergy Mild SWELLING Verified 07/12/20 11:17 enoxaparin [From LOVENOX] Allergy Unknown INTERNAL Verified 07/12/20 11:17 BLEEDING heparin [HEPARIN] Allergy Unknown INTERNAL Verified 07/12/20 11:17 BLEEDING meperidine [Demerol] Allergy Unknown Nausea and Verified 07/12/20 11:17 Vomiting oxycodone Allergy Unknown Nausea and Verified 07/12/20 11:17 Vomiting penicillin V Allergy Unknown rash Verified 07/12/20 11:17 Sulfa (Sulfonamide Allergy Unknown NAUSEA & Verified 07/12/20 11:17 Antibiotics) VOMITING, [SULFA (SULFONAMIDE GI upset ANTIBIOTICS)] warfarin [WARFARIN] AdvReac Severe UNKNOWN Verified 07/12/20 11:17 ibuprofen AdvReac Unknown GI bleed Verified 07/12/20 11:17 Active Medications: Current Medications Generic Name Dose Route Start Last Admin Trade Name Freq PRN Reason Stop Dose Admin Acetaminophen 650 mg 07/23/20 23:39 07/24/20 11:39 Acetaminophen 325 Mg Tablet PO 650 mg Q6H PRN Administration Pain, Mild (Pain Scale 1-3) Albuterol Sulfate 1.25 mg 07/23/20 23:39 Albuterol Sulfate (0.042%) 1.25 Mg/3 Ml Vial.Neb INHALE RQ4H PRN Shortness of Breath/Wheezing Allopurinol 100 mg 07/24/20 09:00 07/24/20 09:33 Allopurinol 100 Mg Tablet PO 100 mg DAILY COUNT INCLUDES THE [facility] Administration Alprazolam 0.25 mg 07/23/20 23:39 07/24/20 01:10 Alprazolam 0.25 Mg Tablet PO 0.25 mg DAILY PRN Administration anxiety Budesonide 1 puff 07/23/20 23:39 07/24/20 02:51 Budesonide 180 Mcg Aer.Pow.Ba INHALE Not Given RBID COUNT INCLUDES THE [facility] Duloxetine HCl 30 mg 07/23/20 23:39 07/24/20 09:34 Duloxetine Hcl 30 Mg Capsule.Dr PO 30 mg BID [place] Administration Insulin Human Lispro 0 unit 07/24/20 11:30 07/24/20 11:37 Insulin Lispro 100 Unit/Ml 3 Ml Vial SUBCUT 2 unit QIDACHS COUNT INCLUDES THE [facility] Administration Protocol Magnesium Oxide 800 mg 07/23/20 23:39 07/24/20 09:34 Magnesium Oxide 400 Mg Tablet PO 800 mg DAILY COUNT INCLUDES THE [facility] Administration Metoprolol Succinate 50 mg 07/23/20 23:39 07/24/20 09:34 Metoprolol Succinate Er 50 Mg Tab.Er.24h PO 50 mg DAILY COUNT INCLUDES THE [facility] Administration Protocol Montelukast Sodium 10 mg 07/23/20 23:39 07/24/20 01:10 Montelukast Sodium 10 Mg Tablet PO 10 mg BEDTIME [place] Administration Morphine Sulfate 15 mg 07/23/20 21:51 Morphine Sulfate Immed Release 15 Mg Tablet PO Q6H PRN Breakthrough Pain Omeprazole 20 mg 07/24/20 06:30 07/24/20 06:28 Omeprazole 20 Mg Capsule. PO 20 mg BID@0630,1630 [place] Administration Ondansetron HCl 4 mg 07/23/20 23:39 Ondansetron Hcl 4 Mg/2 Ml Vial IVPUSH Q8H PRN Nausea and Vomiting Pharmacy Consult 1 each 07/23/20 16:31 Consult Rx Perform Med Rec MISCELLANE ONCE PRN Consult order Potassium Chloride 20 meq 07/24/20 09:00 07/24/20 09:33 Potassium Chloride Er 20 Meq Tab.Er.Prt PO 20 meq DAILY [place] Administration Sodium Chloride 3 ml 07/24/20 00:00 07/24/20 09:32 0.9 % Sodium Chloride Flush 3 Ml Syringe IVFLUSH 3 ml QSHIFT [place] Administration Home Medications Medication Instructions Recorded Confirmed Last Taken Type allopurinol 100 mg tablet 100 mg PO DAILY 01/30/20 07/23/20 Unknown History magnesium oxide 400 mg (241.3 mg 400 mg PO BID 01/30/20 07/23/20 Unknown History magnesium) tablet budesonide 1 inh INHALATION BID 07/23/20 07/23/20 Unknown History Physical Exam Vital Signs: Vital Signs: Last Vital Signs Temp 97 F 07/24/20 10:51 Pulse 79 07/24/20 10:51 Resp 20 07/24/20 10:51 BP 123/55 L 07/24/20 10:51 Pulse Ox 95 07/24/20 10:51 Body Mass Index 31.8 Const: General: cooperative and no acute distress Orientation/consciousness: patient oriented x3 Resp: Effort & Inspection: normal respiratory effort and able to speak in complete sentences Cardio: Peripheral pulses: Peripheral pulses 2+ throughout Neuro: General: patient oriented x3 Extrem: Other: Left shoulder skin intact, no bony abnormality or generalized tenderness to palpation. She does have limited ROM with FF and ER. NVI. Xrays of the left shoulder significant for degenerative changes throughout the GH joint. Results Labs Result Diagrams: 07/24/20 06:00 07/24/20 07:14 Labs: Abnormal lab results 07/23/20 07/23/20 07/23/20 Range/Units 13:05 13:05 13:06 WBC 16.4 H (4.8-10.8) X10*3/uL RBC 4.02 L (4.20-5.50) X10*6/uL Hgb 10.1 L (12.0-16.0) g/dl Hct 31.5 L (37-47) % MCV 78.4 L (80-98) fL MCH 25.1 L (27.0-33.0) pg RDW 18.3 H (11.0-16.0) % Immature Gran % (Auto) 0.7 H (0.0-0.4) % [place] % (Auto) 11.6 H (2-11) % [place] # (Auto) 1.9 H (0.1-1.2) X10*3/uL Abs Immat Gran (auto) 0.11 H (0.00-0.03) X10*3/uL Absolute Neuts (auto) 10.6 H (2.0-8.3) X10*3/uL ESR (0-20) MM/HR PT 14.6 H (10.8-13.0) SEC INR 1.2 H (0.9-1.1) Potassium 3.2 L (3.3-5.1) mmol/L POC Glucose (60-115) mg/dL Random Glucose 135 H (60-115) mg/dL Calcium 8.2 L (8.4-10.2) mg/dL Magnesium 1.4 L* (1.6-2.6) mg/dL 07/23/20 07/24/20 07/24/20 Range/Units 13:06 00:22 06:00 WBC 14.1 H (4.8-10.8) X10*3/uL RBC 4.00 L (4.20-5.50) X10*6/uL Hgb 10.1 L (12.0-16.0) g/dl Hct 31.8 L (37-47) % MCV 79.5 L (80-98) fL MCH 25.3 L (27.0-33.0) pg RDW 19.1 H (11.0-16.0) % Immature Gran % (Auto) 0.6 H (0.0-0.4) % [place] % (Auto) 13.1 H (2-11) % [place] # (Auto) 1.8 H (0.1-1.2) X10*3/uL Abs Immat Gran (auto) 0.08 H (0.00-0.03) X10*3/uL Absolute Neuts (auto) 8.5 H (2.0-8.3) X10*3/uL ESR 87 H (0-20) MM/HR PT (10.8-13.0) SEC INR (0.9-1.1) Potassium (3.3-5.1) mmol/L POC Glucose 135 H (60-115) mg/dL Random Glucose (60-115) mg/dL Calcium (8.4-10.2) mg/dL Magnesium (1.6-2.6) mg/dL 07/24/20 07/24/20 07/24/20 Range/Units 07:01 07:14 10:51 WBC (4.8-10.8) X10*3/uL RBC (4.20-5.50) X10*6/uL Hgb (12.0-16.0) g/dl Hct (37-47) % MCV (80-98) fL MCH (27.0-33.0) pg RDW (11.0-16.0) % Immature Gran % (Auto) (0.0-0.4) % [place] % (Auto) (2-11) % [place] # (Auto) (0.1-1.2) X10*3/uL Abs Immat Gran (auto) (0.00-0.03) X10*3/uL Absolute Neuts (auto) (2.0-8.3) X10*3/uL ESR (0-20) MM/HR PT (10.8-13.0) SEC INR (0.9-1.1) Potassium (3.3-5.1) mmol/L POC Glucose 116 H 172 H (60-115) mg/dL Random Glucose 131 H (60-115) mg/dL Calcium 8.2 L (8.4-10.2) mg/dL Magnesium (1.6-2.6) mg/dL H & H 07/23/20 07/24/20 Range/Units 13:06 06:00 Hgb 10.1 L 10.1 L (12.0-16.0) g/dl Hct 31.5 L 31.8 L (37-47) % Coagulation 07/23/20 Range/Units 13:05 INR 1.2 H (0.9-1.1) All other labs normal. Assessment and Plan (1) Osteoarthritis of left glenohumeral joint: Status: Acute We discussed options which include PT, injections, NSAIDs and modification of activity. She is interested in injections once she is discharged from the hospital. She will reach out to our office to book an appt for left shoulder.
--- NOTE | 2020-07-24 12:45 | PM.EVENT ---
Event Note Date of Service: 07/24/20 Event Note: This 80-year-old female who has chronic left shoulder pain. X-rays are significant for severe degenerative glenohumeral joint arthritis. Saw patient today at bedside who has shoulder pain with active and passive motion. Limited range of motion. Given her current state of health I would not recommend further intervention. She can see us on an outpatient basis for p.r.n. corticosteroid injections. Patient is content with this plan. Full consult note to follow.
--- NOTE | 2020-07-24 15:17 | HO.PM.IMPN ---
Subjective Subjective Date of Service: 07/24/20 Interval History: Patient complaining of persistent left shoulder pain, denies any recent fall or trauma, patient finish course of prednisone few days ago was recently diagnosed to have COVID 0n 07/12 Patient denies any fever chills, no shortness of breath however she does complain of intermittent palpitation. General no headache no dizziness no fever chills. CVS no chest pain, no palpitation. Respiratory no cough, no shortness of breath Gastrointestinal no nausea, no vomiting, no abdominal pain Physical Exam Vital Signs: Vital Signs: Last Vital Signs Temp 97 F 07/24/20 10:51 Pulse 79 07/24/20 10:51 Resp 20 07/24/20 10:51 BP 123/55 L 07/24/20 10:51 Pulse Ox 95 07/24/20 10:51 Body Mass Index 31.8 General in pain, no acute distress. Neck is supple no JVD. CVS regular rate rhythm, Respiratory lungs clear to auscultation, no respiratory distress, no wheeze, no rhonchi. Gastrointestinal abdomen soft, nontender, bowel sounds audible, no guarding , no rigidity. Extremities no edema. Left shoulder limited range of motion, no redness , no swelling no warmth Neuro nonfocal , speech clear. Skin no rash Objective Data Current Medications Generic Name Dose Route Start Last Admin Trade Name Freq PRN Reason Stop Dose Admin Acetaminophen 650 mg 07/23/20 23:39 07/24/20 11:39 Acetaminophen 325 Mg Tablet PO 650 mg Q6H PRN Administration Pain, Mild (Pain Scale 1-3) Albuterol Sulfate 1.25 mg 07/23/20 23:39 Albuterol Sulfate (0.042%) 1.25 Mg/3 Ml Vial.Neb INHALE RQ4H PRN Shortness of Breath/Wheezing Allopurinol 100 mg 07/24/20 09:00 07/24/20 09:33 Allopurinol 100 Mg Tablet PO 100 mg DAILY [place] Administration Alprazolam 0.25 mg 07/23/20 23:39 07/24/20 01:10 Alprazolam 0.25 Mg Tablet PO 0.25 mg DAILY PRN Administration anxiety Budesonide 1 puff 07/23/20 23:39 07/24/20 14:11 Budesonide 180 Mcg Aer.Pow.Ba INHALE Not Given RBID [place] Duloxetine HCl 30 mg 07/23/20 23:39 07/24/20 09:34 Duloxetine Hcl 30 Mg Capsule. PO 30 mg BID [place] Administration Insulin Human Lispro 0 unit 07/24/20 11:30 07/24/20 11:37 Insulin Lispro 100 Unit/Ml 3 Ml Vial SUBCUT 2 unit QIDACHS [facility] Administration Protocol Magnesium Oxide 800 mg 07/23/20 23:39 07/24/20 09:34 Magnesium Oxide 400 Mg Tablet PO 800 mg DAILY [place] Administration Metoprolol Succinate 50 mg 07/23/20 23:39 07/24/20 09:34 Metoprolol Succinate Er 50 Mg Tab.Er.24h PO 50 mg DAILY [facility] Administration Protocol Montelukast Sodium 10 mg 07/23/20 23:39 07/24/20 01:10 Montelukast Sodium 10 Mg Tablet PO 10 mg BEDTIME [place] Administration Morphine Sulfate 15 mg 07/23/20 21:51 Morphine Sulfate Immed Release 15 Mg Tablet PO Q6H PRN Breakthrough Pain Omeprazole 20 mg 07/24/20 06:30 07/24/20 06:28 Omeprazole 20 Mg Capsule. PO 20 mg BID@1130,7160 [facility] Administration Ondansetron HCl 4 mg 07/23/20 23:39 Ondansetron Hcl 4 Mg/2 Ml Vial IVPUSH Q8H PRN Nausea and Vomiting Pharmacy Consult 1 each 07/23/20 16:31 Consult Rx Perform Med Rec MISCELLANE ONCE PRN Consult order Potassium Chloride 20 meq 07/24/20 09:00 07/24/20 09:33 Potassium Chloride Er 20 Meq Tab.Er.Prt PO 20 meq DAILY [facility] Administration Sodium Chloride 3 ml 07/24/20 00:00 07/24/20 09:32 0.9 % Sodium Chloride Flush 3 Ml Syringe IVFLUSH 3 ml QSHIFT [facility] Administration Labs CBC & Chem 7: 07/24/20 06:00 07/24/20 07:14 Assessment and Plan (1) Atrial fibrillation with RVR: Status: Acute (2) Left shoulder pain: Status: Acute (3) Hypomagnesemia: Status: Acute (4) Hypokalemia: Status: Acute (5) Leukocytosis: Status: Acute Assessment and Plan: 80 years old lady with PMH of COPD, angioedema, GERD, type 2 diabetes, HTN among others who presented to the hospital you as a referral from Urgent Care for symptomatic tachycardia. Atrial fibrillation with RVR Patient presented with symptomatic tachycardia initially treated with IV adenosine followed by IV Cardizem with no response to treatment subsequently treated with IV Lopressor, heart rate improved and 1 of patient multiple EKG showed atrial fibrillation, currently patient is in normal sinus rhythm, at present she is asymptomatic with no chest pain or shortness of breath. Patient evaluated by Cardiology and they recommend metoprolol and anticoagulation however due to prior history of GI bleed patient declined anticoagulation and will discuss with her primary front office medical assistant , will check TSH, continue tele monitor for next 24. Left shoulder pain X-ray showing arthritis, patient evaluated by Orthopedic surgery they recommend no further intervention and recommend outpatient follow-up for as needed steroids Hypomagnesemia and Hypokalemia both magnesium and potassium normalized with replacement Leukocytosis likely related to recent use of steroids but it seems that patient has chronically elevated WBC, urinalysis and chest x-ray are unremarkable Diabetes is stable blood sugars continue insulin sliding scale and diabetic diet at home takes a combination of sitagliptin and metformin. Hyperlipidemia on statin Hypertension hold chlorthalidone and losartan patient placed on metoprolol blood pressure is stable continue to follow BP closely. DVT PPX SCDs, has reported allergy to heparin and Lovenox.
--- NOTE | 2020-07-24 16:01 | MHC.CM.PN ---
CM MET WITH PT AND HER DAUGHTER, TAMRA WHO WAS AT BEDSIDE. PT REPORTS IT IS JUST HER AND HER DAUGHTER AT HOME AND SHE IS INDEPENDENT WITH ALL CARE. PT REPORTS SHE DOES NOT HAVE ANY [facility] HOME SERVICES./ SHE USES A CANE AND HAS A WALKER IF NEEDED. PT DOES NOT HAVE A HCP AND IS NOT INTERESTED IN COMPLETING ONE. PT CONFIRMS HER PCP ADRIANNA DRISCOLL. IMM DELIVERED CURRENT DC PLAN IS HOME WITH NO SERVICES PTS DAUGHTER TO TRANSPORT
[2020-07-24 16:19] LABS: Glucose, Whole Blood 135 mg/dL (60-115)
[2020-07-24 21:02] LABS: Glucose, Whole Blood 136 mg/dL (60-115)
[2020-07-25] VITALS: BP 152/70; PULSE 88; RESP 18; TEMP 36.8; O2SAT 96
[2020-07-25] MEDS: Acetaminophen 325 MG TABLET 650 MG PO ×2 (02:03→08:19)
[2020-07-25 03:48] VITALS: BP 138/82; PULSE 77; RESP 20; TEMP 36.8; O2SAT 96
[2020-07-25] MEDS: Omeprazole 20 MG CAPSULE.DR PO (06:07)
[2020-07-25 07:31] LABS: Glucose, Whole Blood 124 mg/dL (60-115)
[2020-07-25 08:00] VITALS: BP 157/71; PULSE 81; RESP 20; TEMP 37.1; O2SAT 97
[2020-07-25 08:20] VITALS: BP 157/71; PULSE 81
[2020-07-25] MEDS: Potassium Chloride ER 20 MEQ TAB.ER.PRT PO (08:20)
[2020-07-25] MEDS: DULoxetine HCl 30 MG CAPSULE.DR PO (08:20)
[2020-07-25] MEDS: Magnesium Oxide 400 MG TABLET 800 MG PO (08:20)
[2020-07-25] MEDS: 0.9 % Sodium Chloride Flush 3 ML SYRINGE IVFLUSH (08:20)
[2020-07-25] MEDS: allopurinoL 100 MG TABLET PO (08:20)
[2020-07-25] MEDS: Metoprolol Succinate ER 50 MG TAB.ER.24H PO (08:20)
--- NOTE | 2020-07-25 10:59 | PM.DS ---
DS: Providers Provider Date of Service: 07/25/20 Date of admission: 07/23/20 16:53 Primary care physician: Melissa Shannon MD Consults: 07/23/20 23:39 Consult to Cardiology Routine Consulting Provider: Nate Alexander Reason for consultation: Evaluate tachycardia, SVT vs AFib RvR Consult to Orthopedics Routine Consulting Provider: Martha Corona Reason for consultation: Left shoulder pain, low suspecions for septic joint for your kind eval. DS: Diagnosis Discharge Diagnosis (1) Atrial fibrillation with RVR: Status: Acute (2) Left shoulder pain: Status: Acute (3) Hypomagnesemia: Status: Acute (4) Hypokalemia: Status: Acute (5) Leukocytosis: Status: Acute DS: Medications Discharge Medications Home Medications: Home Medications Medication Instructions Recorded Confirmed allopurinol 100 mg tablet 100 mg PO DAILY 01/30/20 07/23/20 chlorthalidone 25 mg tablet 25 mg PO DAILY 01/30/20 07/23/20 magnesium oxide 400 mg (241.3 mg 400 mg PO BID 01/30/20 07/23/20 magnesium) tablet budesonide 1 inh INHALATION BID 07/23/20 07/23/20 Previous Rx's Medication Instructions Recorded potassium chloride 20 mEq 20 meq PO DAILY #90 tab 01/30/20 tablet,extended release(part/cryst) pantoprazole 40 mg tablet,delayed 40 mg PO DAILY #90 ea 02/25/20 release Nasonex 50 mcg/actuation [place] 2 spray INTRANASAL DAILY #51 g NS 03/11/20 montelukast 10 mg tablet 10 mg PO BEDTIME #30 tab 03/31/20 rosuvastatin 20 mg tablet 20 mg PO BEDTIME #30 tab 03/31/20 Serevent Diskus 50 mcg/dose powder 1 inh PO BID 90 Days ea NS 04/01/20 for inhalation sitagliptin 50 mg-metformin 500 mg 1 tab PO BID 30 Days #60 tab 04/03/20 tablet blood-glucose meter #1 ea 04/09/20 albuterol sulfate 90 mcg/actuation 2 inh INHALATION Q4-6H PRN 90 Days 04/23/20 breath activated powder inhaler #1 ea epinephrine [EpiPen] 0.3 mg IM ONCE PRN #1 ea 05/02/20 duloxetine 30 mg capsule,delayed 30 mg PO BID #180 ea 05/23/20 release acetaminophen-codeine 1 tab PO Q8H PRN #10 tab 07/12/20 doxycycline monohydrate 100 mg PO BID 10 Days #20 cap 07/12/20 ondansetron HCl [Zofran] 4 mg PO Q8H PRN #14 tab 07/12/20 losartan 50 mg tablet 50 mg PO DAILY #90 tab 07/14/20 albuterol sulfate 2.5 mg INHALATION Q6H PRN #180 ml 07/15/20 alprazolam 0.25 mg tablet 0.25 mg PO DAILY PRN #90 tab 07/18/20 DS: Summary Hospital Course Hospital Course: History of presenting illness Chief Complaint: Shoulder pain, tachycardia, leukocytosis A 80 years old lady with PMH of COPD, angioedema, GERD, type 2 diabetes, HTN among others who presented to the hospital you as a referral from Urgent Care for symptomatic tachycardia. The patient point to the urgent care for evaluation of left shoulder pain and decreased range of motion were she was found to be tachycardic with associated tachypnea. She was sent by ambulance to the emergency as the initial EKG was concerning for possible SVT that responded after multiple IV doses of Cardizem and metoprolol. An EKG done in between showing possible atrial fibrillation with RVR. Heart rate control in the emergency. She was complaining mainly of the left shoulder pain. Is a chronic problem but seems to be worse recently. Denies any fever, chills but reported pain in moving the shoulder. Leukocytosis, hypokalemia and hypomagnesemia was done in the emergency. Admitted for further evaluation and treatment. Hospital course 80 years old lady with PMH of COPD, angioedema, GERD, type 2 diabetes, HTN among others who presented to the hospital as a referral from Urgent Care for symptomatic tachycardia. Atrial fibrillation with RVR Patient presented with symptomatic tachycardia initially treated with IV adenosine followed by IV Cardizem with no response to treatment subsequently treated with IV Lopressor, heart rate improved and 1 of patient multiple EKG showed atrial fibrillation, patient placed on Toprol-XL 50 mg daily, she remained in sinus rhythm, her chads vascular score is greater than 5, anticoagulation offered however patient wishes to discuss this with his primary procurement manager Dr. Tanner from [facility] cardiology , since hospitalization patient had no further episodes of chest pain or shortness of breath Since patient has had multiple echocardiograms as outpatient and is scheduled for another echocardiogram in next couple months and echo was not obtained patient has been recommended to follow-up with PCP and Cardiology in 1 week. Left shoulder pain X-ray showed arthritis, patient evaluated by Orthopedic surgery they recommend no further intervention and recommend outpatient follow-up for as needed steroids shots. Hypomagnesemia and Hypokalemia both magnesium and potassium normalized with replacement. Leukocytosis likely related to recent use of steroids but it seems that patient has chronically elevated WBC, urinalysis and chest x-ray are unremarkable, patient complaining of sinus pressure recommended to finish the course of doxycycline and use nasal saline spray as needed. Diabetes stable blood sugars continue home medication sitagliptin and metformin. Hyperlipidemia continue statin Hypertension hold chlorthalidone and potassium, since noted to have hypokalemia and question need for diuretic, continue losartan and metoprolol and follow with Cardiology for further medication adjustment. Time Spent with Patient Time attestation: Total time spent providing and/or coordinating discharge services: Discharge coordination time: Greater than 30 minutes Physical Exam Vital Signs: Vital Signs: Last Vital Signs Temp 98.8 F 07/25/20 08:00 Pulse 81 07/25/20 08:20 Resp 20 07/25/20 08:00 BP 157/71 H 07/25/20 08:20 Pulse Ox 97 07/25/20 08:00 Body Mass Index 31.8 General in pain, no acute distress. Neck is supple no JVD. CVS regular, rate, rhythm Respiratory lungs clear to auscultation, no respiratory distress, no wheeze, no rhonchi. Gastrointestinal abdomen soft, nontender, bowel sounds audible, no guarding , no rigidity. Extremities no edema. Left shoulder limited range of motion, no redness , no swelling no warmth Neuro nonfocal , speech clear. Skin no rash DS: Data Data Completed and Pending Labs on day of discharge: Laboratory Results - last 24 hr 07/24/20 07/24/20 07/24/20 10:51 16:02 20:55 POC Glucose 172 H 135 H 136 H 07/25/20 07:20 POC Glucose 124 H Discharge Plan Discharge Patient Disposition: Home, Self-Care Referrals: Melissa Shannon MD [Primary Care Provider] - Discharge Medications: New metoprolol succinate 50 mg Tablet Extended Release 24 Hr 50 mg PO DAILY Qty: 30 RF: 0 Continued pantoprazole 40 mg tablet,delayed release (DR/EC) 40 mg PO DAILY Qty: 90 RF: 2 mometasone [Nasonex] 50 mcg/actuation spray,non-aerosol 2 spray intranasal DAILY Qty: 51 RF: 5 rosuvastatin 20 mg tablet 20 mg PO BEDTIME Qty: 30 RF: 6 montelukast 10 mg tablet 10 mg PO BEDTIME Qty: 30 RF: 6 Serevent Diskus 50 mcg/dose blister with device 1 inh PO BID 90 Days RF: 1 sitagliptin-metformin 50-500 mg tablet 1 tab PO BID 30 Days Qty: 60 RF: 3 albuterol sulfate 90 mcg/actuation aerosol powdr breath activated 2 inh inhalation Q4-6H PRN (Reason: shortness of breath or wheezing) 90 Days Qty: 1 RF: 3 duloxetine 30 mg capsule,delayed release(DR/EC) 30 mg PO BID Qty: 180 RF: 0 losartan 50 mg tablet 50 mg PO DAILY Qty: 90 RF: 1 albuterol sulfate 2.5 mg /3 mL (0.083 %) solution for nebulization 2.5 mg inhalation Q6H PRN (Reason: shortness of breath or wheezing) Qty: 180 RF: 2 alprazolam 0.25 mg tablet 0.25 mg PO DAILY PRN (Reason: anxiety) Qty: 90 RF: 0 epinephrine [EpiPen] 0.3 mg/0.3 mL auto-injector 0.3 mg IM ONCE PRN (Reason: anaphylaxis) Qty: 1 RF: 0 acetaminophen-codeine 300-30 mg tablet 1 tab PO Q8H PRN (Reason: pain) Qty: 10 RF: 0 ondansetron HCl [Zofran] 4 mg tablet 4 mg PO Q8H PRN (Reason: nausea and vomiting) Qty: 14 RF: 0 doxycycline monohydrate 100 mg capsule 100 mg PO BID 10 Days Qty: 20 RF: 0 budesonide 180 mcg/actuation aerosol powdr breath activated 1 inh inhalation BID RF: 0 allopurinol 100 mg tablet 100 mg PO DAILY RF: 0 magnesium oxide 400 mg (241.3 mg magnesium) tablet 400 mg PO BID RF: 0 Discontinued chlorthalidone 25 mg tablet 25 mg PO DAILY RF: 0 potassium chloride 20 mEq tablet,ER particles/crystals 20 meq PO DAILY Qty: 90 RF: 2 No Action (DME) blood-glucose meter [FreeStyle Lite Meter] Kit See Rx Instructions .ROUTE .MEDSUPPLY Qty: 1 RF: 0 Discharge Orders: Discharge Order (Routine); Ordered 07/25/20 Ordered By: Magalie Pierre Diet: diabetic diet and low fat, low cholesterol Activity on Discharge: As tolerated Stand Alone Forms: Patient Portal Discharge page Care Plan Goals: Take metoprolol 50 mg daily hold chlorthalidone follow-up with your Cardiology in 1 week and discuss use of anticoagulation Health Concerns: Atrial fibrillation with RVR/sinus pressure finish course of doxycycline and use nasal saline spray to right nostril as needed Plan of Treatment: Follow-up with PCP and Cardiology
--- NOTE | 2020-07-25 11:16 | MHC.CM.PN ---
pt dcd today home no servceis
[2020-07-25 11:23] LABS: Glucose, Whole Blood 120 mg/dL (60-115)
[2020-07-25 11:37] VITALS: BP 135/58
[2020-07-25] MEDS: Losartan Potassium 50 MG TABLET PO (11:37)
== END 2020-07-25 14:53 | disposition home or self-care (01) | DRG 310 ==
LOC: HO.ED 15:49 → HO.EDOVER 17:03 → HO.IMC 21:54
PROVIDERS: Physician Assistant Medical; Admitting Provider Student in an Organized Health Care Education/Training Program; Emergency Provider Emergency Medicine; PCP Internal Medicine; Visit Provider Hospitalist
DX: I48.0 Paroxysmal atrial fibrillation (principal); E87.6 Hypokalemia; I47.1 Supraventricular tachycardia; K21.9 Gastro-esophageal reflux disease without esophagitis; D72.829 Elevated white blood cell count, unspecified; E83.42 Hypomagnesemia; M19.012 Primary osteoarthritis, left shoulder; E78.5 Hyperlipidemia, unspecified; Z87.891 Personal history of nicotine dependence; E11.9 Type 2 diabetes mellitus without complications; Z20.822 Contact with and (suspected) exposure to COVID-19; Z88.0 Allergy status to penicillin; Z88.2 Allergy status to sulfonamides; Z88.5 Allergy status to narcotic agent; Z88.6 Allergy status to analgesic agent; Z79.899 Other long term (current) drug therapy
CPT/HCPCS: 36415; 71045; 73030; 80048; 81003; 82947; 83735; 83880; 84484; 84550; 85025; 85610; 85652; 87635; 93005; 96365; 96366; 96375; 97110; 97166; 99285; J0153; J2405; J3475

== ENCOUNTER 2020-08-04 09:06 | Outpatient (REF) | payer MEDICARE, MEDICAID, SELFPAY ==
[2020-08-04 11:55] LABS: Alanine Aminotransferase 16 U/L (0-31); Anion Gap 18 (12-20); Aspartate Amino Transferase 18 U/L (5-31); Blood Urea Nitrogen 16 mg/dL (9-16); Carbon Dioxide 24 mmol/L (22-29); Chloride 103 mmol/L (96-108); Cholesterol 173 mg/dL; Estimated Glomerular Filt Rate > 60; Glucose Fasting 133 mg/dL (60-99); HDL Cholesterol 46 mg/dL; LDL Cholesterol Calculated 96 mg/dl; Potassium 4.3 mmol/L (3.3-5.1); Sodium 141 mmol/L (135-145); Triglycerides 158 mg/dL
[2020-08-04 12:12] LABS: Estimated Average Glucose 146 mg/dL; Hemoglobin A1c % 6.7 %
[2020-08-04 12:50] LABS: Creatinine Urine 184.04 mg/dL; Microalbum/Creatinine Ratio Ur 11.4 ug/mg cr
== END 2020-08-04 09:07 | disposition home or self-care (01) ==
LOC: HO.HMGCLDS 09:06
PROVIDERS: Visit Provider Internal Medicine
DX: E11.9 Type 2 diabetes mellitus without complications (principal); E78.5 Hyperlipidemia, unspecified; I10 Essential (primary) hypertension
CPT/HCPCS: 36415; 80048; 80061; 82043; 83036; 84450; 84460

== ENCOUNTER → 2020-08-05 10:49 | Outpatient (BNVA) | payer MEDICARE, MEDICAID, SELFPAY | PROVIDERS: PCP Internal Medicine; Visit Provider Internal Medicine | DX: J44.9 Chronic obstructive pulmonary disease, unspecified (principal); J30.9 Allergic rhinitis, unspecified; U07.1 COVID-19; Z79.899 Other long term (current) drug therapy | CPT/HCPCS: 99212 ==

== ENCOUNTER → 2020-09-01 11:01 | Outpatient (BNVA) | payer MEDICARE, MEDICAID, SELFPAY | PROVIDERS: PCP Internal Medicine; Visit Provider Internal Medicine | DX: J44.9 Chronic obstructive pulmonary disease, unspecified (principal); J30.9 Allergic rhinitis, unspecified; Z79.899 Other long term (current) drug therapy | CPT/HCPCS: 99212 ==

== ENCOUNTER 2020-11-24 08:44 | Outpatient (REF) | payer MEDICARE, MEDICAID, SELFPAY ==
[2020-11-24 11:21] LABS: MANUAL DIFF FLAG NO
[2020-11-24 11:53] LABS: Estimated Average Glucose 137 mg/dL; Hemoglobin A1c % 6.4 %
[2020-11-24 11:54] LABS: Alanine Aminotransferase 14 U/L (0-31); Albumin Level 4.4 g/dL (3.5-5.0); Alkaline Phosphatase 80 U/L (39-117); Anion Gap 17 (12-20); Aspartate Amino Transferase 18 U/L (5-31); Basophils Percent Auto 0.5 % (0-2); Bilirubin Total 0.3 mg/dL (0.0-1.0); Blood Urea Nitrogen 17 mg/dL (9-16); Carbon Dioxide 26 mmol/L (22-29); Chloride 102 mmol/L (96-108); Cholesterol 201 mg/dL; Eosinophils Absolute Auto 0.3 X10*3/uL (0.0-0.4); Eosinophils Percent Auto 2.9 % (0-4); Estimated Glomerular Filt Rate > 60; Glucose Fasting 166 mg/dL (60-99); HDL Cholesterol 54 mg/dL; Hematocrit 36.8 % (37-47); Hemoglobin 11.8 g/dl (12.0-16.0); Imm Gran Abs Auto 0.02 X10*3/uL (0.00-0.03); Imm Gran Pct Auto 0.2 % (0.0-0.4); Iron 91 mcg/dL (30-160); LDL Cholesterol Calculated 111 mg/dl; Lymphocytes Percent Auto 34.5 % (20-40); Mean Corpuscular HGB Conc 32.1 g/dl (31.0-35.0); Mean Corpuscular Hemoglobin 27.3 pg (27.0-33.0); Mean Platelet Volume 11.2 fL (9.4-12.3); Monocytes Absolute Auto 0.6 X10*3/uL (0.1-1.2); Monocytes Percent Auto 6.8 % (2-11); Neutrophils Absolute Auto 4.7 X10*3/uL (2.0-8.3); Neutrophils Percent Auto 55.1 % (45-73); Percent Iron Saturation 23 % (15-50); Platelet Count 301 X10*3/uL (160-400); Red Blood Count 4.33 X10*6/uL (4.20-5.50); Red Cell Distribution Width 17.3 % (11.0-16.0); Sodium 141 mmol/L (135-145); Total Iron Binding Capacity 391 mcg/dL (228-428); Total Protein 7.2 g/dL (6.5-8.0); Triglycerides 183 mg/dL; Unsaturated Iron Binding 300 ug/dL; White Blood Count 8.6 X10*3/uL (4.8-10.8)
[2020-11-24 12:16] LABS: TSH reflex Free T4 2.18 uIU/mL (0.32-4.0)
[2020-11-24 12:46] LABS: Folate 18.9 ng/mL (> or = 4.0); Vitamin B12 374 pg/mL (200-900)
== END 2020-11-24 08:45 | disposition home or self-care (01) ==
LOC: HO.HMGCLDS 08:44
PROVIDERS: PCP Internal Medicine; Visit Provider Internal Medicine
DX: D64.9 Anemia, unspecified (principal); E11.9 Type 2 diabetes mellitus without complications; E78.5 Hyperlipidemia, unspecified; I10 Essential (primary) hypertension
CPT/HCPCS: 36415; 80053; 80061; 82306; 82607; 82746; 83036; 83540; 84443; 85025

== ENCOUNTER → 2020-12-30 13:17 | Outpatient (BNVA) | payer MEDICARE, MEDICAID, SELFPAY | PROVIDERS: PCP Internal Medicine; Visit Provider Internal Medicine | DX: J44.9 Chronic obstructive pulmonary disease, unspecified (principal); J30.9 Allergic rhinitis, unspecified | CPT/HCPCS: 99212 ==

== ENCOUNTER 2021-03-03 07:50 | Outpatient (REF) | payer MEDICARE, MEDICAID, SELFPAY ==
[2021-03-03 11:48] LABS: MANUAL DIFF FLAG NO
[2021-03-03 12:01] LABS: Basophils Absolute Auto 0.1 X10*3/uL (0.0-0.2); Basophils Percent Auto 0.6 % (0-2); Eosinophils Absolute Auto 0.3 X10*3/uL (0.0-0.4); Eosinophils Percent Auto 3.1 % (0-4); Hematocrit 37.9 % (37.0-47.0); Hemoglobin 12.2 g/dl (12.0-16.0); Imm Gran Abs Auto 0.03 X10*3/uL (0.00-0.03); Imm Gran Pct Auto 0.3 % (0.0-0.4); Lymphocytes Absolute Auto 3.2 X10*3/uL (1.2-4.9); Lymphocytes Percent Auto 35.1 % (20-40); Mean Corpuscular HGB Conc 32.2 g/dl (31.0-35.0); Mean Corpuscular Hemoglobin 28.4 pg (27.0-33.0); Mean Corpuscular Volume 88.1 fL (80.0-98.0); Mean Platelet Volume 11.2 fL (9.4-12.3); Monocytes Absolute Auto 0.8 X10*3/uL (0.1-1.2); Monocytes Percent Auto 8.9 % (2-11); Neutrophils Absolute Auto 4.7 x10*3/uL (2.0-8.3); Platelet Count 286 X10*3/uL (160-400); Red Cell Distribution Width 16.1 % (11.0-16.0); White Blood Count 9.1 X10*3/uL (4.8-10.8)
[2021-03-03 12:22] LABS: Alanine Aminotransferase 21 U/L (0-31); Anion Gap 12 (12-20); Aspartate Amino Transferase 20 U/L (5-31); Blood Urea Nitrogen 14 mg/dL (9-16); Calcium 9.6 mg/dL (8.4-10.2); Carbon Dioxide 30 mmol/L (22-29); Chloride 102 mmol/L (96-108); Cholesterol 193 mg/dL; Estimated Glomerular Filt Rate > 60; Glucose Fasting 120 mg/dL (60-99); HDL Cholesterol 52 mg/dL; LDL Cholesterol Calculated 99 mg/dl; Potassium 4.1 mmol/L (3.3-5.1); Sodium 140 mmol/L (135-145); Triglycerides 212 mg/dL
[2021-03-03 12:57] LABS: Estimated Average Glucose 131 mg/dL; Hemoglobin A1c % 6.2 %
== END 2021-03-03 07:51 | disposition home or self-care (01) ==
LOC: HO.HMGCLDS 07:50
PROVIDERS: PCP Internal Medicine; Visit Provider Internal Medicine
DX: E11.9 Type 2 diabetes mellitus without complications (principal); E78.00 Pure hypercholesterolemia, unspecified; I10 Essential (primary) hypertension; D50.9 Iron deficiency anemia, unspecified
CPT/HCPCS: 36415; 80048; 80061; 83036; 84450; 84460; 85025

== ENCOUNTER 2021-03-18 09:52 | Outpatient (REF) | payer MEDICARE, MEDICAID, SELFPAY ==
[2021-03-18 11:21] LABS: Appearance Urine CLOUDY; Color Urine YELLOW; Glucose Urine UA NEG (NEG); Leukocyte Esterase Urine 1+ (NEG); Nitrite Urine NEG (NEG); PH 5.5 (5.0-8.0); Specific Gravity - Urine 1.025 (1.005-1.025); UACC Culture Trigger YES; Urine Blood TRACE (NEG); Urine Ketones 15 MG/DL (NEG); Urine Protein TRACE MG/DL (NEG-TRACE)
[2021-03-18 11:51] LABS: Bacteria Urine 1+ /LPF; Squamous Epithelial Cell Urine 2+ /LPF
== END 2021-03-18 09:53 | disposition home or self-care (01) ==
LOC: HO.HMGCLDS 09:52
PROVIDERS: PCP Internal Medicine; Visit Provider Internal Medicine
DX: Z13.89 Encounter for screening for other disorder (principal)
CPT/HCPCS: 81001; 87086

== ENCOUNTER 2021-03-18 19:26 | Emergency (ER) | payer MEDICARE, MEDICAID, SELFPAY ==
--- NOTE | ~2021-03-18 | CT_ITS ---
EXAMINATION: CT CERVICAL SPINE WITHOUT CONTRAST CLINICAL INFORMATION: Fall pain COMPARISON: None TECHNIQUE: Noncontrast CT cervical spine Department standard protocol. This CT examination was performed using dose optimization techniques as appropriate, variously including the following: *Automated exposure control *Adjustment of mA and/or kV according to patient size (this includes techniques or standardized protocols for targeted exams where dose is matched to indication/reason for exam; i.e. extremities or head) *Use of iterative reconstruction technique DLP: 441 mGy-cm FINDINGS: 7 cervical vertebrae identified maintaining proper height and alignments. Mild spondylosis lower cervical spine C5-C6 C7-T1. No CT evidence of a fracture. Paravertebral soft tissue unremarkable. Central canal and neural foramen are patent. There is facet joints arthropathy at C4-C5, C5-C6 and C6-C7. Included lung apices are clear. Included structures at skull base are normal. CT/CT cervical spine wo con IMPRESSION: No CT evidence of cervical injury. Mild spondylosis of lower cervical spine.
--- NOTE | ~2021-03-18 | CT_ITS ---
CT head/brain wo con CLINICAL INFORMATION: Fall COMPARISON: No prior CT scan available for comparison. TECHNIQUE: Department standard protocol. Noncontrast study This CT examination was performed using dose optimization techniques as appropriate, variously including the following: *Automated exposure control *Adjustment of mA and/or kV according to patient size (this includes techniques or standardized protocols for targeted exams where dose is matched to indication/reason for exam; i.e. extremities or head) *Use of iterative reconstruction technique DLP: 747 mGy-cm FINDINGS: CEREBRAL HEMISPHERES: There is no evidence of intra-axial or extra-axial mass, hemorrhage or acute infarct. BRAIN PARENCHYMA: Normal cronin-white matter differentiation. SUBDURAL SPACE: No bleed. BASAL GANGLIA AND PINEAL GLAND: Unremarkable VENTRICLES: Symmetric and normal in size. CEREBELLUM AND BRAINSTEM: Hypodense area projecting over the medulla oblongata/jillian junction probably an artifact, or old lacunar infarct has not changed from prior CT of 02/11/2015. CEREBELLOPONTINE ANGLES: No lesion found. ORBITS: No intraorbital mass. VESSELS: Unremarkable SKULL BASE: Unremarkable INCLUDED SINUSES AT SKULL BASE: Clear SKULL AND SKIN: No fracture or bone lesion found. CT/CT head/brain wo con IMPRESSION: No CT evidence of acute intracranial injury or bleed. Subtle hypodense area in the right brain stem at the pontomedullary junction probably an artifact or old lacunar infarct unchanged from prior study of 2014.
--- NOTE | ~2021-03-18 | XR_ITS ---
EXAMINATION: THORACIC SPINE, LUMBAR SPINE CLINICAL INFORMATION: Fall with back pain COMPARISON: CT of chest abdomen pelvis 07/12/2020 TECHNIQUE: 2 views thoracic spine, 3 views lumbar spine FINDINGS: Thoracic spine: There is a new compression fracture with anterior wedging involving lower T11. This was not present at the time of the prior 07/12/2020 CT scan. No other fractures are seen. Paraspinal soft tissues are unremarkable. Lumbar spine: Degenerative changes are noted in the lumbar spine most marked at L4-L5 as well as the L5-S1 facet joints. There is a mild scoliosis convex to the right. Aortoiliac calcifications are seen. No acute finding is present. The fracture of T11 is again noted. XR/XR lumbar spine 2-3V IMPRESSION: Compression fracture of T11, new when compared to 07/12/2020. If the patient has symptoms in this area, a CT scan could be performed to assess if this is acute.
--- NOTE | ~2021-03-18 | XR_ITS ---
EXAMINATION: THORACIC SPINE, LUMBAR SPINE CLINICAL INFORMATION: Fall with back pain COMPARISON: CT of chest abdomen pelvis 07/12/2020 TECHNIQUE: 2 views thoracic spine, 3 views lumbar spine FINDINGS: Thoracic spine: There is a new compression fracture with anterior wedging involving lower T11. This was not present at the time of the prior 07/12/2020 CT scan. No other fractures are seen. Paraspinal soft tissues are unremarkable. Lumbar spine: Degenerative changes are noted in the lumbar spine most marked at L4-L5 as well as the L5-S1 facet joints. There is a mild scoliosis convex to the right. Aortoiliac calcifications are seen. No acute finding is present. The fracture of T11 is again noted. XR/XR thoracic spine 3V IMPRESSION: Compression fracture of T11, new when compared to 07/12/2020. If the patient has symptoms in this area, a CT scan could be performed to assess if this is acute.
[2021-03-18 19:41] VITALS: BP 177/90; PULSE 93; O2SAT 98; BMI 29.1
[2021-03-18 19:47] VITALS: BP 177/75; PULSE 87; RESP 18; TEMP 36.9; O2SAT 99
--- NOTE | 2021-03-18 19:50 | ED.GENADULT ---
HPI - General Adult General Chief complaint: Fall Stated complaint: fall/backpain Time Seen by Provider: 03/18/21 19:33 Related Data Previous Rx's Medication Instructions Recorded blood-glucose meter (FreeStyle #1 ea 04/09/20 Lite Meter) epinephrine 0.3 mg/0.3 mL 0.3 mg (0.3 mL) IM ONCE PRN #1 ea 05/02/20 injection, auto-injector (EpiPen) metoprolol succinate 50 mg 50 mg PO DAILY #30 tab 07/25/20 tablet,extended release 24 hr ferrous fumarate 325 mg (106 mg 325 mg PO DAILY #90 tab 10/03/20 iron) tablet losartan 50 mg tablet 50 mg PO DAILY #90 tab 10/21/20 magnesium oxide 400 mg (241.3 mg 400 mg PO DAILY #30 tab 11/14/20 magnesium) tablet Nasonex 50 mcg/actuation [place] 2 spray INTRANASAL DAILY #51 g NS 11/18/20 (mometasone) sitagliptin 50 mg-metformin 500 mg 1 tab PO BID 90 Days #180 tab 11/18/20 tablet duloxetine 30 mg capsule,delayed 30 mg PO BID 90 Days #180 cap 11/26/20 release pantoprazole 40 mg tablet,delayed 40 mg PO DAILY #90 ea 12/02/20 release allopurinol 100 mg tablet 100 mg PO DAILY #90 tab 12/16/20 budesonide 180 mcg/actuation 1 inh INHALATION BID 90 Days #3 ea 12/30/20 breath activated powder inhaler (Pulmicort Flexhaler) montelukast 10 mg tablet 10 mg PO BEDTIME 90 Days #90 tab 12/30/20 Serevent Diskus 50 mcg/dose powder 1 inh INHALATION BID 60 Days #2 ea 01/06/21 for inhalation (salmeterol) NS albuterol sulfate 2.5 mg (3 mL) INHALATION Q6H PRN 01/06/21 #180 ml albuterol sulfate 90 mcg/actuation 2 inh INHALATION Q4-6H PRN 90 Days 01/06/21 breath activated powder inhaler #1 ea alprazolam 0.25 mg tablet 0.25 mg PO DAILY PRN #90 tab 01/06/21 rosuvastatin 20 mg tablet 20 mg PO BEDTIME #30 tab 03/15/21 Allergies Allergy/AdvReac Type Severity Reaction Status Date / Time Penicillins [PENICILLINS] Allergy Intermediate rash Verified 03/17/21 17:04 meperidine [Demerol] Allergy Unknown Nausea and Verified 03/17/21 17:04 Vomiting oxycodone Allergy Unknown Nausea and Verified 03/17/21 17:04 Vomiting Sulfa (Sulfonamide Allergy Unknown NAUSEA & Verified 03/17/21 17:04 Antibiotics) VOMITING, [SULFA (SULFONAMIDE GI upset ANTIBIOTICS)] warfarin [WARFARIN] AdvReac Severe UNKNOWN Verified 03/17/21 17:04 aspirin [ASPIRIN] AdvReac Mild gi bleed Verified 03/17/21 17:04 enoxaparin [From LOVENOX] AdvReac Unknown INTERNAL Verified 03/17/21 17:04 BLEEDING heparin [HEPARIN] AdvReac Unknown INTERNAL Verified 03/17/21 17:04 BLEEDING ibuprofen AdvReac Unknown GI bleed Verified 03/17/21 17:04 Chocolate AdvReac Diarrhea Verified 03/17/21 17:04 [facility] Past Medical History Medical History (Updated 03/18/21 @ 21:12 by Altagracia Hernandez MD) Allergic rhinitis Anaphylactic reaction due to shellfish Anemia 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) Anxiety disorder COPD (chronic obstructive pulmonary disease) COVID-19 Deep vein thrombosis (DVT) of left lower extremity Diverticulitis GERD (gastroesophageal reflux disease) Gout Hyperlipidemia Hypertension Multiple lipomas Nodular lesion on surface of skin Paroxysmal atrial fibrillation Seasonal allergies Type 2 diabetes mellitus without complication, without long-term current use of insulin Surgical History H/O local excision of skin lesion Family History Family History Mother Mental health disorder Sister CVA (cerebral vascular accident) Daughter Brain tumor Diabetes Bipolar 1 disorder Heart abnormality Mental illness in member of household Mental health disorder Father Substance use disorder Son Mental health disorder Social History Social History Household Members: Family Housing: House Do you presently have visiting nurse or other home services: No Alcohol intake: never Patient Tobacco Use Status: Former Tobacco user Years Smoked: 10 yrs e-Cigarette/Vaping Use: Never Used Second Hand Smoke Exposure: No Advance Directives: No Advance Directives Information Provided: No service: No Current occupational status: retired Physical Exam Vital Signs: Vital Signs: Last Vital Signs Temp 98.5 F 03/18/21 19:47 Pulse 87 03/18/21 19:47 Resp 18 03/18/21 19:47 BP 177/75 H 03/18/21 19:47 Pulse Ox 99 03/18/21 19:47 Body Mass Index 29.1 Course Course Course Narrative: Patient's head and neck CT showed no acute pathology. X-rays pending. Patient also states that she feels the built short of breath, secondary to her asthma. Patient was provided with a neb treatment Patient declined any stronger pain medication than hydrocodone/acetaminophen. If x-rays are negative, patient may need a CT scan. Patient will need to have an ambulation trial. Patient has no neurological deficits, but due to the pain, ambulation/gait has not been tested. out given to Dr. [place] Discharge Plan Discharge Clinical Impression: Fall Prescriptions: No Action (DME) blood-glucose meter [FreeStyle Lite Meter] Kit See Rx Instructions .ROUTE .MEDSUPPLY Qty: 1 RF: 0 ferrous fumarate 325 mg (106 mg iron) tablet 325 mg PO DAILY Qty: 90 RF: 0 losartan 50 mg tablet 50 mg PO DAILY Qty: 90 RF: 1 magnesium oxide 400 mg (241.3 mg magnesium) tablet 400 mg PO DAILY Qty: 30 RF: 0 sitagliptin-metformin 50-500 mg tablet 1 tab PO BID 90 Days Qty: 180 RF: 1 mometasone [Nasonex] 50 mcg/actuation spray,non-aerosol 2 spray intranasal DAILY Qty: 51 RF: 5 pantoprazole 40 mg tablet,delayed release (DR/EC) 40 mg PO DAILY Qty: 90 RF: 2 allopurinol 100 mg tablet 100 mg PO DAILY Qty: 90 RF: 0 Serevent Diskus 50 mcg/dose blister with device 1 inh inhalation BID 60 Days Qty: 2 RF: 3 albuterol sulfate 90 mcg/actuation aerosol powdr breath activated 2 inh inhalation Q4-6H PRN (Reason: shortness of breath or wheezing) 90 Days Qty: 1 RF: 3 albuterol sulfate 2.5 mg /3 mL (0.083 %) solution for nebulization 2.5 mg inhalation Q6H PRN (Reason: shortness of breath or wheezing) Qty: 180 RF: 2 alprazolam 0.25 mg tablet 0.25 mg PO DAILY PRN (Reason: anxiety) Qty: 90 RF: 0 rosuvastatin 20 mg tablet 20 mg PO BEDTIME Qty: 30 RF: 6 epinephrine [EpiPen] 0.3 mg/0.3 mL auto-injector 0.3 mg IM ONCE PRN (Reason: anaphylaxis) Qty: 1 RF: 0 metoprolol succinate 50 mg Tablet Extended Release 24 Hr 50 mg PO DAILY Qty: 30 RF: 0 duloxetine 30 mg capsule,delayed release(DR/EC) 30 mg PO BID 90 Days Qty: 180 RF: 2 montelukast 10 mg tablet 10 mg PO BEDTIME 90 Days Qty: 90 RF: 3 Pulmicort Flexhaler 180 mcg/actuation aerosol powdr breath activated 1 inh inhalation BID 90 Days Qty: 3 RF: 3
[2021-03-18] MEDS: Acetaminophen 325 MG TABLET 650 MG PO (20:56)
[2021-03-18 21:36] VITALS: BP 187/82; PULSE 87; RESP 20; TEMP 36.9; O2SAT 100
--- NOTE | 2021-03-18 21:40 | PC.NURSE ---
PATIENT REFUSED TO BE UNDRESS ,RN AWARE .
--- NOTE | 2021-03-18 21:53 | PC.NURSE ---
Joyce states her entire back hurts, admits to diffuse, not focal, pain.
[2021-03-18] MEDS: Lidocaine 4 % Patch ADH..PATCH 1 PATCH TRANSDERMA (22:51)
== END 2021-03-18 23:52 | disposition home or self-care (01) ==
PROVIDERS: Emergency Provider Emergency Medicine; PCP Internal Medicine
DX: S22.080A Wedge compression fracture of T11-T12 vertebra, initial encounter for closed fracture (principal); W19.XXXA Unspecified fall, initial encounter; R06.02 Shortness of breath; Y93.9 Activity, unspecified; Y92.9 Unspecified place or not applicable; Y99.9 Unspecified external cause status
CPT/HCPCS: 70450; 72072; 72100; 72125; 81001; 87086; 87088; 87186; 99284

== ENCOUNTER 2021-04-14 14:22 | Outpatient (REF) | payer MEDICARE, MEDICAID, SELFPAY ==
[2021-04-14 16:32] LABS: Appearance Urine HAZY; Color Urine DK YELLOW; Glucose Urine UA NEG (NEG); Leukocyte Esterase Urine TRACE (NEG); Nitrite Urine NEG (NEG); UACC Culture Trigger YES; Urine Blood NEG (NEG); Urine Ketones 5 MG/DL (NEG); Urine Protein TRACE MG/DL (NEG-TRACE)
[2021-04-14 16:49] LABS: WBC Urine 0-2 /HPF (0-4)
[2021-04-14 16:50] LABS: Bacteria Urine TRACE /LPF; RBC Urine 0-2 /HPF (0); Squamous Epithelial Cell Urine TRACE /LPF
== END 2021-04-14 14:23 | disposition home or self-care (01) ==
LOC: HO.HMGCLDS 14:22
PROVIDERS: PCP Internal Medicine; Visit Provider Internal Medicine
DX: R35.0 Frequency of micturition (principal); R30.0 Dysuria
CPT/HCPCS: 81001; 87086

== ENCOUNTER → 2021-05-12 15:29 | Outpatient (BNVA) | payer MEDICARE, MEDICAID, SELFPAY | PROVIDERS: PCP Internal Medicine; Visit Provider Internal Medicine | DX: Z13.89 Encounter for screening for other disorder (principal) | CPT/HCPCS: Q3014 ==

== ENCOUNTER 2021-06-29 07:12 | Outpatient (REF) | payer MEDICARE, MEDICAID, SELFPAY ==
[2021-06-29 11:31] LABS: MANUAL DIFF FLAG NO
[2021-06-29 11:40] LABS: Basophils Absolute Auto 0.1 X10*3/uL (0.0-0.2); Basophils Percent Auto 0.5 % (0-2); Eosinophils Absolute Auto 0.2 X10*3/uL (0.0-0.4); Eosinophils Percent Auto 1.6 % (0-4); Hematocrit 38.2 % (37.0-47.0); Hemoglobin 12.2 g/dl (12.0-16.0); Imm Gran Abs Auto 0.06 X10*3/uL (0.00-0.03); Imm Gran Pct Auto 0.5 % (0.0-0.4); Lymphocytes Absolute Auto 3.1 X10*3/uL (1.2-4.9); Lymphocytes Percent Auto 25.7 % (20-40); Mean Corpuscular HGB Conc 31.9 g/dl (31.0-35.0); Mean Corpuscular Hemoglobin 27.8 pg (27.0-33.0); Mean Platelet Volume 10.9 fL (9.4-12.3); Monocytes Absolute Auto 0.8 X10*3/uL (0.1-1.2); Monocytes Percent Auto 6.5 % (2-11); Neutrophils Absolute Auto 7.9 x10*3/uL (2.0-8.3); Neutrophils Percent Auto 65.2 % (45-73); Platelet Count 310 X10*3/uL (160-400); Red Blood Count 4.39 X10*6/uL (4.20-5.50); Red Cell Distribution Width 15.7 % (11.0-16.0); White Blood Count 12.1 X10*3/uL (4.8-10.8)
[2021-06-29 11:49] LABS: Alanine Aminotransferase 13 U/L (0-31); Anion Gap 17 (12-20); Aspartate Amino Transferase 16 U/L (5-31); Blood Urea Nitrogen 14 mg/dL (9-16); Calcium 9.8 mg/dL (8.4-10.2); Carbon Dioxide 26 mmol/L (22-29); Chloride 101 mmol/L (96-108); Cholesterol 185 mg/dL; Estimated Glomerular Filt Rate > 60; Glucose Fasting 166 mg/dL (60-99); HDL Cholesterol 50 mg/dL; Iron 46 mcg/dL (30-160); LDL Cholesterol Calculated 104 mg/dl; Percent Iron Saturation 13 % (15-50); Sodium 140 mmol/L (135-145); Total Iron Binding Capacity 357 mcg/dL (228-428); Triglycerides 157 mg/dL; Unsaturated Iron Binding 311 ug/dL
[2021-06-29 12:13] LABS: Vitamin D 25-OH Total 46.8 ng/mL (>30)
[2021-06-29 12:16] LABS: Estimated Average Glucose 140 mg/dL; Hemoglobin A1c % 6.5 %
[2021-06-29 12:19] LABS: Creatinine Urine 203.16 mg/dL; Microalbum/Creatinine Ratio Ur 14.7 ug/mg cr
== END 2021-06-29 07:13 | disposition home or self-care (01) ==
LOC: HO.HMGCLDS 07:12
PROVIDERS: Visit Provider Internal Medicine
DX: D50.9 Iron deficiency anemia, unspecified (principal); E11.9 Type 2 diabetes mellitus without complications; E78.00 Pure hypercholesterolemia, unspecified; I10 Essential (primary) hypertension; Z78.0 Asymptomatic menopausal state
CPT/HCPCS: 36415; 80048; 80061; 82043; 82306; 83036; 83540; 84450; 84460; 85025

== ENCOUNTER 2021-06-30 10:41 | Outpatient (REF) | payer MEDICARE, MEDICAID, SELFPAY ==
--- NOTE | ~2021-06-30 | XR_ITS ---
EXAMINATION: XR CHEST CLINICAL INFORMATION: Shortness of breath COMPARISON: Previous chest x-ray and chest CTA June 2020 and thoracic spine x-ray 2020 TECHNIQUE: 2 views of the chest were obtained. FINDINGS: The cardiac and mediastinal contours are stable. The thoracic aorta appears tortuous and may be enlarged. Unchanged from previous exam. The lungs are clear. There is no pleural effusion or pneumothorax. There is a severe T11 vertebral body compression fracture. This is new in the interval from chest CTA June 2020 and increased from February 2021 thoracic spine x-ray. XR/XR chest 2V IMPRESSION: No evidence for acute disease in the chest. Tortuous and possibly ectatic thoracic aorta similar to previous exams. Severe T11 vertebral body compression fracture increased from thoracic spine x-ray February 2021
== END 2021-06-30 10:42 | disposition home or self-care (01) ==
LOC: HO.HMGCX 10:41
PROVIDERS: PCP Internal Medicine; Visit Provider Internal Medicine Cardiovascular Disease
DX: R06.02 Shortness of breath (principal)
CPT/HCPCS: 71046

== ENCOUNTER 2021-08-31 10:30 | Outpatient (REF) | payer MEDICARE, MEDICAID, SELFPAY ==
--- NOTE | ~2021-08-31 | XR_ITS ---
EXAMINATION: XR CHEST CLINICAL INFORMATION: COPD. COMPARISON: Chest 06/30/2021. TECHNIQUE: 2 views of the chest were obtained. FINDINGS: The lungs are well expanded and clear of acute process. Heart size and pulmonary vascularity is normal. There is acute kyphotic deformity at lower thoracic spine from a chronic T11 compression fracture. No new fractures visualized. XR/XR chest 2V IMPRESSION: No acute cardiopulmonary process seen. T11 chronic compression deformity unchanged to chest x-ray 06/30/2021.
== END 2021-08-31 10:31 | disposition home or self-care (01) ==
LOC: HO.XRAY 10:30
PROVIDERS: PCP Internal Medicine; Visit Provider Internal Medicine
DX: J44.9 Chronic obstructive pulmonary disease, unspecified (principal); J40 Bronchitis, not specified as acute or chronic; J30.9 Allergic rhinitis, unspecified; Z87.891 Personal history of nicotine dependence
CPT/HCPCS: 71046; 99212

== ENCOUNTER 2021-09-09 14:39 | Outpatient (REF) | payer MEDICARE, MEDICAID, SELFPAY ==
[2021-09-09 16:48] LABS: Appearance Urine HAZY; Color Urine YELLOW; Glucose Urine UA NEG (NEG); Leukocyte Esterase Urine 2+ (NEG); Nitrite Urine NEG (NEG); PH 7.5 (5.0-8.0); Specific Gravity - Urine 1.015 (1.005-1.025); UACC Culture Trigger YES; Urine Blood 3+ (NEG); Urine Ketones NEG (NEG); Urine Protein 1+ MG/DL (NEG-TRACE)
[2021-09-09 17:33] LABS: Bacteria Urine 1+ /LPF; RBC Urine 30-49 /HPF (0); Squamous Epithelial Cell Urine 1+ /LPF
== END 2021-09-09 14:40 | disposition home or self-care (01) ==
LOC: HO.HMGCLDS 14:39
PROVIDERS: PCP Internal Medicine; Visit Provider Internal Medicine
DX: R30.0 Dysuria (principal)
CPT/HCPCS: 81001; 87086

== ENCOUNTER 2021-09-15 12:04 | Outpatient (REF) | payer MEDICARE, MEDICAID, SELFPAY ==
--- NOTE | ~2021-09-15 | MM_ITS ---
EXAMINATION: MM SCREENING DIGITAL BREAST TOMOSYNTHESIS, BILATERAL CLINICAL INFORMATION: Screening. Asymptomatic. The lifetime risk of breast cancer based on the Tyrer-Cuzick Model is under 2%. COMPARISON: Mammography: 03/04/2020, 03/13/2018, 03/03/2018, 07/05/2016 TECHNIQUE: Digital breast tomosynthesis is performed in both the craniocaudal and mediolateral oblique views along with computer-aided detection (CAD). Synthesized 2D images are generated from the tomosynthesis. Additional left MLO view is provided. FINDINGS: The breasts are almost entirely fatty (ACR BI-RADS breast composition Category a). There are no significant masses, abnormal calcifications, or other abnormalities. Background stromal markings are stable. There are scattered benign round and some coarse and vascular calcifications. The axilla are unremarkable. No significant changes. MM/MM tomosynthesis screening BI IMPRESSION: No mammographic evidence of malignancy. ASSESSMENT: BI-RADS 2: Benign RECOMMENDATION: Routine annual mammography screening. This patient's information was entered into a reminder system with a target due date for their next mammogram.
== END 2021-09-15 12:05 | disposition home or self-care (01) ==
LOC: HO.MAMMO 12:04
PROVIDERS: PCP Internal Medicine; Visit Provider Internal Medicine
DX: Z12.31 Encounter for screening mammogram for malignant neoplasm of breast (principal)
CPT/HCPCS: 77063; 77067

== ENCOUNTER → 2021-09-17 09:59 | Outpatient (BNVA) | payer MEDICARE, MEDICAID, SELFPAY | PROVIDERS: PCP Internal Medicine; Visit Provider Internal Medicine | DX: J44.9 Chronic obstructive pulmonary disease, unspecified (principal); J30.9 Allergic rhinitis, unspecified; Z79.899 Other long term (current) drug therapy | CPT/HCPCS: 99212 ==

== ENCOUNTER 2021-09-30 07:28 | Outpatient (REF) | payer MEDICARE, MEDICAID, SELFPAY ==
[2021-09-30 12:00] LABS: Estimated Average Glucose 140 mg/dL; Hemoglobin A1c % 6.5 %
[2021-09-30 12:07] LABS: Alanine Aminotransferase 17 U/L (0-31); Anion Gap 14 (12-20); Aspartate Amino Transferase 18 U/L (5-31); Blood Urea Nitrogen 14 mg/dL (9-16); Calcium 9.3 mg/dL (8.4-10.2); Carbon Dioxide 26 mmol/L (22-29); Chloride 105 mmol/L (96-108); Cholesterol 191 mg/dL; Estimated Glomerular Filt Rate > 60; Glucose Fasting 126 mg/dL (60-99); HDL Cholesterol 53 mg/dL; LDL Cholesterol Calculated 105 mg/dl; Potassium 4.3 mmol/L (3.3-5.1); Sodium 141 mmol/L (135-145); Triglycerides 169 mg/dL
[2021-09-30 12:18] LABS: Vitamin D 25-OH Total 42.4 ng/mL (>30)
[2021-09-30 14:33] LABS: Creatinine Urine 22.79 mg/dL; Microalbumin Urine < 5.0 mg/L
== END 2021-09-30 07:29 | disposition home or self-care (01) ==
LOC: HO.HMGCLDS 07:28
PROVIDERS: PCP Internal Medicine; Visit Provider Internal Medicine
DX: E11.9 Type 2 diabetes mellitus without complications (principal); E78.5 Hyperlipidemia, unspecified; I10 Essential (primary) hypertension; E78.00 Pure hypercholesterolemia, unspecified; N95.9 Unspecified menopausal and perimenopausal disorder; M81.0 Age-related osteoporosis without current pathological fracture; Z87.311 Personal history of (healed) other pathological fracture
CPT/HCPCS: 36415; 80048; 80061; 82043; 82306; 83036; 84450; 84460

== ENCOUNTER 2021-10-04 05:22 | Emergency (ER) | payer MEDICARE, MEDICAID, SELFPAY ==
--- NOTE | 2021-10-04 | ECG_ITS ---
Test Reason : cp Blood Pressure : / mmHG Vent. Rate : 090 BPM Atrial Rate : 090 BPM P-R Int : 140 ms QRS Dur : 114 ms QT Int : 412 ms P-R-T Axes : 036 -19 -08 degrees QTc Int : 504 ms Sinus rhythm with marked sinus arrhythmia Incomplete right bundle branch block Moderate voltage criteria for LVH, may be normal variant ( R in aVL , [place] product ) Prolonged QT Abnormal ECG When compared with ECG of 23-JUL-2020 13:39, No significant changes seen Referred By: Erin Melendrez Electronically Signed By:Nate Alexander
--- NOTE | ~2021-10-04 | XR_ITS ---
EXAMINATION: XR SHOULDER, RIGHT CLINICAL INFORMATION: Right shoulder pain. Question arthritis. COMPARISON: Right shoulder x-rays of 07/05/2018, 01/12/2017 TECHNIQUE: Three views of the right shoulder. FINDINGS: Acromioclavicular and glenohumeral joint alignments are maintained. Moderate to severe osteoarthritic changes are noted at the right glenohumeral joint with narrowing of the joint space, subarticular sclerosis and irregularity of articular surfaces as well as prominent osteophyte from the inferior medial margin of the humeral head. Moderate to severe AC joint arthropathy is noted as well. No evidence of acute fracture or dislocation. Visualized thorax is unremarkable. No definite soft tissue calcifications are noted. XR/XR shoulder RT min 2V IMPRESSION: Moderate to severe arthritic changes at right glenohumeral joint and acromioclavicular joint, with at least some internal worsening compared to previous x-rays of 2018 and 2016. No acute osseous abnormality.
[2021-10-04 05:27] VITALS: BP 183/101; PULSE 101; RESP 22; TEMP 36.9; O2SAT 98; BMI 31.2
[2021-10-04 05:49] LABS: Basophils Absolute Auto 0.1 X10*3/uL (0.0-0.2); Basophils Percent Auto 0.3 % (0-2); Eosinophils Absolute Auto 0.2 X10*3/uL (0.0-0.4); Eosinophils Percent Auto 1.4 % (0-4); Hematocrit 34.3 % (37.0-47.0); Hemoglobin 11.1 g/dl (12.0-16.0); Imm Gran Abs Auto 0.06 X10*3/uL (0.00-0.03); Imm Gran Pct Auto 0.4 % (0.0-0.4); Lymphocytes Absolute Auto 3.2 X10*3/uL (1.2-4.9); Lymphocytes Percent Auto 20.9 % (20-40); MANUAL DIFF FLAG NO; Mean Corpuscular HGB Conc 32.4 g/dl (31.0-35.0); Mean Corpuscular Hemoglobin 27.7 pg (27.0-33.0); Mean Corpuscular Volume 85.5 fL (80.0-98.0); Monocytes Absolute Auto 1.2 X10*3/uL (0.1-1.2); Monocytes Percent Auto 7.9 % (2-11); Neutrophils Absolute Auto 10.6 x10*3/uL (2.0-8.3); Neutrophils Percent Auto 69.1 % (45-73); Platelet Count 270 X10*3/uL (160-400); Red Blood Count 4.01 X10*6/uL (4.20-5.50); Red Cell Distribution Width 16.8 % (11.0-16.0); White Blood Count 15.4 X10*3/uL (4.8-10.8)
[2021-10-04 05:59] LABS: COVID-19 Test Negative (Negative); IDNOW Serial# 16C4AD1C
[2021-10-04 06:10] LABS: Alanine Aminotransferase 16 U/L (0-31); Albumin Level 4.2 g/dL (3.5-5.0); Alkaline Phosphatase 91 U/L (39-117); Anion Gap 14 (12-20); Aspartate Amino Transferase 16 U/L (5-31); Bilirubin Total 0.4 mg/dL (0.0-1.0); Blood Urea Nitrogen 12 mg/dL (9-16); Carbon Dioxide 26 mmol/L (22-29); Chloride 104 mmol/L (96-108); Creatinine Clr Calc Pharmacy 54.7; Estimated Glomerular Filt Rate > 60; Glucose Random 139 mg/dL (60-115); Potassium 3.7 mmol/L (3.3-5.1); Sodium 140 mmol/L (135-145); Total Protein 7.1 g/dL (6.5-8.0); Troponin-I High Sensitivity < 3.5 ng/L (<3.5-17.0)
--- NOTE | 2021-10-04 07:00 | ED_ITS ---
HPI - Extremity Problem General Chief complaint: Extremity Injury, Upper Stated complaint: R Arm pain Time Seen by Provider: 10/04/21 06:56 Source: patient and family (Daughter) Mode of arrival: ambulatory Limitations: no limitations History of Present Illness HPI Narrative: 81-year-old female lives home with her daughter came in for evaluation of right shoulder pain. Patient with significant history of arthritis presented with right shoulder pain that is started for couple days progressively getting worse when patient woke up this morning was 10/10, radiates down to the whole right arm and right side of the neck, pain is worse with movement, nothing relieves the pain, pain is constant and severe 10/10, no association with fever, no chest pain, no shortness of breath. Related Data Previous Rx's Medication Instructions Recorded blood-glucose meter (FreeStyle #1 ea 04/09/20 Lite Meter) epinephrine 0.3 mg/0.3 mL 0.3 mg (0.3 mL) IM ONCE PRN 05/02/20 injection, auto-injector (EpiPen) anaphylaxis #1 ea metoprolol succinate 50 mg 50 mg PO DAILY #30 tabs 07/25/20 tablet,extended release 24 hr budesonide 180 mcg/actuation 1 inh inhalation BID 90 days #3 ea 12/30/20 breath activated powder inhaler (Pulmicort Flexhaler) montelukast 10 mg tablet 10 mg PO BEDTIME 90 days #90 tabs 12/30/20 Serevent Diskus 50 mcg/dose powder 1 inh inhalation BID 60 days #2 ea 01/06/21 for inhalation (salmeterol) albuterol sulfate 2.5 mg (3 mL) inhalation Q6H PRN 01/06/21 shortness of breath or wheezing #180 mL acetaminophen 300 mg-codeine 30 mg 1 tab PO Q6H PRN pain #30 tabs 03/18/21 tablet sitagliptin 50 mg-metformin 500 mg 1 tab PO BID 90 days #180 tabs 04/02/21 tablet losartan 50 mg tablet 50 mg PO DAILY #90 tabs 04/11/21 allopurinol 100 mg tablet 100 mg PO DAILY #90 tabs 04/20/21 tizanidine 4 mg tablet 4 mg PO Q8H PRN muscle spasticity 05/06/21 #90 tabs duloxetine 30 mg capsule,delayed 30 mg PO BID 90 days #180 caps 06/29/21 release pantoprazole 40 mg tablet,delayed 40 mg PO DAILY #90 ea 06/29/21 release rosuvastatin 20 mg tablet 20 mg PO BEDTIME #90 tabs 07/29/21 albuterol sulfate 90 mcg/actuation 2 inh inhalation Q4-6H PRN 08/20/21 breath activated powder inhaler shortness of breath or wheezing 90 (ProAir RespiClick) days #1 ea doxycycline hyclate 100 mg capsule 100 mg PO BID #20 caps 08/20/21 prednisone 5 mg tablet 5 mg PO BID COPD EXCARBATION 20 08/31/21 days #30 tabs nitrofurantoin macrocrystal 100 mg 100 mg PO BID #20 caps 09/11/21 capsule alprazolam 0.25 mg tablet 0.25 mg PO DAILY PRN anxiety #90 10/02/21 tabs fluticasone propionate 50 1 spray intranasal BID 3 months #3 10/02/21 mcg/actuation nasal multiple units spray,suspension acetaminophen 300 mg-codeine 15 mg 1 tab PO BID PRN pain #14 tabs 10/04/21 tablet Allergies Allergy/AdvReac Type Severity Reaction Status Date / Time Penicillins [PENICILLINS] Allergy Intermediate rash Verified 10/02/21 13:00 meperidine [Demerol] Allergy Unknown Nausea and Verified 10/02/21 13:00 Vomiting oxycodone Allergy Unknown Nausea and Verified 10/02/21 13:00 Vomiting Sulfa (Sulfonamide Allergy Unknown NAUSEA & Verified 10/02/21 13:00 Antibiotics) VOMITING, [SULFA (SULFONAMIDE GI upset ANTIBIOTICS)] warfarin [WARFARIN] AdvReac Severe UNKNOWN Verified 10/02/21 13:00 aspirin [ASPIRIN] AdvReac Mild gi bleed Verified 10/02/21 13:00 enoxaparin [From LOVENOX] AdvReac Unknown INTERNAL Verified 10/02/21 13:00 BLEEDING heparin [HEPARIN] AdvReac Unknown INTERNAL Verified 10/02/21 13:00 BLEEDING ibuprofen AdvReac Unknown GI bleed Verified 10/02/21 13:00 Chocolate AdvReac Diarrhea Verified 10/02/21 13:00 Review of Systems Review of Systems: All other systems are reviewed and are negative Constitutional: Reports as per HPI and Reports no additional constitutional complaints Eyes: Reports as per HPI and Reports no additional eye complaints Reports system reviewed and no additional complaints, except as documented Cardiovascular: Reports as per HPI and Reports no additional cardiovascular complaints Respiratory: Reports as per HPI and Reports no additional respiratory complaints Gastrointestinal: Reports as per HPI and Reports no additional gastrointestinal complaints Genitourinary: Reports no additional female genitourinary complaints Musculoskeletal: Reports no additional musculoskeletal complaints Skin/Breast: Reports system reviewed and no additional complaints, except as docu Psychiatric: Reports no additional psychiatric complaints Endocrine: Reports no additional endocrine complaints Hematologic/Lymphatic: Reports no additional hematologic/lymphatic complaints Allergic/Immunologic: Reports no additional allergic/immunologic complaints Reports system reviewed and no additional complaints, except as documented and Reports Abnormal speech present [facility] Past Medical History 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) Anxiety disorder Compression fracture of body of thoracic vertebra COPD (chronic obstructive pulmonary disease) COVID-19 Deep vein thrombosis (DVT) of left lower extremity Diverticulitis GERD (gastroesophageal reflux disease) Gout History of compression fracture of spine Hyperlipidemia Hypertension Multiple lipomas Nodular lesion on surface of skin Osteoporosis Paroxysmal atrial fibrillation Seasonal allergies Type 2 diabetes mellitus without complication, without long-term current use of insulin Surgical History H/O local excision of skin lesion Family History Family History Mother Mental health disorder Sister CVA (cerebral vascular accident) Daughter Brain tumor Diabetes Bipolar 1 disorder Heart abnormality Mental illness in member of household Mental health disorder Father Substance use disorder Son Mental health disorder Social History Social History Household Members: Family Housing: House Do you presently have visiting nurse or other home services: No Alcohol intake: never Patient Tobacco Use Status: Former Tobacco user Years Smoked: 10 yrs e-Cigarette/Vaping Use: Never Used Second Hand Smoke Exposure: No Advance Directives: No Advance Directives Information Provided: Yes service: No Current occupational status: retired Cognitive needs: No Hearing needs: No Vision needs: Yes Physical Exam Vital Signs: Vital Signs: Last Vital Signs Temp 98.4 F 10/04/21 05:27 Pulse 88 10/04/21 08:11 Resp 18 10/04/21 08:11 BP 183/73 H 10/04/21 08:11 Pulse Ox 98 10/04/21 08:11 O2 Del Method 10/04/21 08:11 BMI result Body Mass Index 31.2 Vital signs have been reviewed as appeared to be correct. Blood pressure elevated. Heart rate elevated. Respiration rate normal. Temperature normal. Oxygen saturation normal. Appearance: Alert. Oriented X3. No acute distress. Head: Normal external exam. Normocephalic. Atraumatic. No Palencia signs noted. No raccoon eyes noted Eyes: PERRLA. EOMI. Conjunctiva and sclera normal. Eyelids normal. ENT: TM's Normal. Pharynx normal. Uvula midline. Moist mucous membranes. No trismus noted. No drooling noted. No muffled voice noted. Neck: Normal inspection. Neck supple. FROM. No adenopathy. Thyroid Normal. No meningeal signs. No neck mass noted. CVS: Normal heart rate and rhythm. Heart sound normal. No murmurs noted. Pulses normal throughout. Respiratory: No respiratory distress. Painless inspiration. Breath sounds normal. No wheezes/rales/rhonchi noted. Chest nontender. No accessory muscle usage noted or decreased air movement noted. Abdomen: Soft and nontender. Bowel sounds normal in all 4 quadrants. No distention noted. No organomegaly noted. No visible injury noted. Back: No CVA tenderness. Full range of motion noted. Skin: Skin warm and dry. Normal skin color. Normal skin turgor. No rashes/lesions/lacerations noted. Extremities: Right shoulder tenderness held in adduction position with painful and limited abduction, no deformity, no dislocation, neurovascularly intact. Neuro: Oriented X 3. Cranial nerve exam: II-XII are grossly intact No motor deficit. No sensory deficit. Reflexes normal. Course Course Course Narrative: 81-year-old female with history of arthritis came in with right shoulder pain for couple days, no history of trauma or injury to the right shoulder, x-rays consistent with severe osteoarthritis, patient feels better with Percocet, was recommended to the patient to get a PCP referral to chronic Pain Clinic. Will discharge home with Tylenol with codeine. Patient with chronic leukocytosis no acute infection was revealed on exam today. Patient did not give us urine sample today but no UTI symptoms. MDM - Extremity (Nontraumatic) Lab Data Result diagrams: 10/04/21 05:49 10/04/21 05:49 Labs: Lab Results 10/04/21 10/04/21 10/04/21 Range/Units 04:16 05:49 05:49 WBC 15.4 H (4.8-10.8) X10*3/uL RBC 4.01 L (4.20-5.50) X10*6/uL Hgb 11.1 L (12.0-16.0) g/dl Hct 34.3 L (37.0-47.0) % MCV 85.5 (80.0-98.0) fL MCH 27.7 (27.0-33.0) pg MCHC 32.4 (31.0-35.0) g/dl RDW 16.8 H (11.0-16.0) % Plt Count 270 (160-400) X10*3/uL MPV 10.0 (9.4-12.3) fL Immature Gran % (Auto) 0.4 (0.0-0.4) % Neut % (Auto) 69.1 (45-73) % Lymph % (Auto) 20.9 (20-40) % [place] % (Auto) 7.9 (2-11) % Eos % (Auto) 1.4 (0-4) % Baso % (Auto) 0.3 (0-2) % Lymph # (Auto) 3.2 (1.2-4.9) X10*3/uL [place] # (Auto) 1.2 (0.1-1.2) X10*3/uL Eos # (Auto) 0.2 (0.0-0.4) X10*3/uL Baso # (Auto) 0.1 (0.0-0.2) X10*3/uL Abs Immat Gran (auto) 0.06 H (0.00-0.03) X10*3/uL Absolute Neuts (auto) 10.6 H (2.0-8.3) x10*3/uL Absolute Nucleated RBC 0.000 (0.0-0.012) X10*3/uL Nucleated RBC % (auto) 0.0 (0.0-0.2) /100WBC Sodium 140 (135-145) mmol/L Potassium 3.7 (3.3-5.1) mmol/L Chloride 104 (96-108) mmol/L Carbon Dioxide 26 (22-29) mmol/L Anion Gap 14 (12-20) BUN 12 (9-16) mg/dL Creatinine 0.73 (0.5-1.4) mg/dL Estim Creat Clear Calc 54.7 Estimated GFR > 60 Random Glucose 139 H (60-115) mg/dL Calcium 9.0 (8.4-10.2) mg/dL Total Bilirubin 0.4 (0.0-1.0) mg/dL AST 16 (5-31) U/L ALT 16 (0-31) U/L Alkaline Phosphatase 91 (39-117) U/L Troponin I High Sens (<3.5-17.0) ng/L Total Protein 7.1 (6.5-8.0) g/dL Albumin 4.2 (3.5-5.0) g/dL COVID-19 (ROSLYN) Negative (Negative) COVID-19 Clin Com See Note 10/04/21 Range/Units 05:49 WBC (4.8-10.8) X10*3/uL RBC (4.20-5.50) X10*6/uL Hgb (12.0-16.0) g/dl Hct (37.0-47.0) % MCV (80.0-98.0) fL MCH (27.0-33.0) pg MCHC (31.0-35.0) g/dl RDW (11.0-16.0) % Plt Count (160-400) X10*3/uL MPV (9.4-12.3) fL Immature Gran % (Auto) (0.0-0.4) % Neut % (Auto) (45-73) % Lymph % (Auto) (20-40) % [place] % (Auto) (2-11) % Eos % (Auto) (0-4) % Baso % (Auto) (0-2) % Lymph # (Auto) (1.2-4.9) X10*3/uL [place] # (Auto) (0.1-1.2) X10*3/uL Eos # (Auto) (0.0-0.4) X10*3/uL Baso # (Auto) (0.0-0.2) X10*3/uL Abs Immat Gran (auto) (0.00-0.03) X10*3/uL Absolute Neuts (auto) (2.0-8.3) x10*3/uL Absolute Nucleated RBC (0.0-0.012) X10*3/uL Nucleated RBC % (auto) (0.0-0.2) /100WBC Sodium (135-145) mmol/L Potassium (3.3-5.1) mmol/L Chloride (96-108) mmol/L Carbon Dioxide (22-29) mmol/L Anion Gap (12-20) BUN (9-16) mg/dL Creatinine (0.5-1.4) mg/dL Estim Creat Clear Calc Estimated GFR Random Glucose (60-115) mg/dL Calcium (8.4-10.2) mg/dL Total Bilirubin (0.0-1.0) mg/dL AST (5-31) U/L ALT (0-31) U/L Alkaline Phosphatase (39-117) U/L Troponin I High Sens < 3.5 (<3.5-17.0) ng/L Total Protein (6.5-8.0) g/dL Albumin (3.5-5.0) g/dL COVID-19 (ROSLYN) (Negative) COVID-19 Clin Com Imaging Data Right shoulder x-ray: Attestation: I personally reviewed and interpreted this imaging study as follows: Radiologist's impression: Moderate to severe arthritic changes at right glenohumeral joint and acromioclavicular joint, with at least some internal worsening compared to previous x-rays of 2019 and 2017. No acute osseous abnormality. ECG Data Attestation EKG: I personally reviewed and interpreted this ECG as follows: Interpretation: Is normal sinus rhythm at 90 beats per minute, incomplete right BBB, LVH. Discharge Plan Discharge Clinical Impression: Arthritis Patient Disposition: Home, Self-Care Instructions: Osteoarthritis (ED) Prescriptions: New acetaminophen-codeine 300-15 mg tablet 1 tab PO BID PRN (Reason: pain) Qty: 14 0RF No Action (DME) blood-glucose meter [FreeStyle Lite Meter] Kit See Rx Instructions .ROUTE .MEDSUPPLY Qty: 1 0RF Rx Instructions: Check blood sugar once a day as directed Serevent Diskus 50 mcg/dose blister with device 1 inh inhalation BID 60 Days Qty: 2 3RF albuterol sulfate 2.5 mg /3 mL (0.083 %) solution for nebulization 2.5 mg inhalation Q6H PRN (Reason: shortness of breath or wheezing) Qty: 180 2RF sitagliptin-metformin 50-500 mg tablet 1 tab PO BID 90 Days Qty: 180 1RF losartan 50 mg tablet 50 mg PO DAILY Qty: 90 1RF allopurinol 100 mg tablet 100 mg PO DAILY Qty: 90 0RF tizanidine 4 mg tablet 4 mg PO Q8H PRN (Reason: muscle spasticity) Qty: 90 0RF Rx Instructions: Take one tab 3 times a day as needed for muscle spasms, back pain. pantoprazole 40 mg tablet,delayed release (DR/EC) 40 mg PO DAILY Qty: 90 2RF duloxetine 30 mg capsule,delayed release(DR/EC) 30 mg PO BID 90 Days Qty: 180 2RF rosuvastatin 20 mg tablet 20 mg PO BEDTIME Qty: 90 3RF nitrofurantoin macrocrystal 100 mg capsule 100 mg PO BID Qty: 20 0RF Rx Instructions: must administer with a meal/food epinephrine [EpiPen] 0.3 mg/0.3 mL auto-injector 0.3 mg IM ONCE PRN (Reason: anaphylaxis) Qty: 1 0RF Rx Instructions: do not exceed 12 doses per 24 hrs metoprolol succinate 50 mg Tablet Extended Release 24 Hr 50 mg PO DAILY Qty: 30 0RF Protocol: Hold for SBP/HR < HOLD for SBP < : 90 HOLD for HR < : 60 acetaminophen-codeine 300-30 mg tablet 1 tab PO Q6H PRN (Reason: pain) Qty: 30 0RF fluticasone propionate 50 mcg/actuation spray,suspension 1 spray intranasal BID 90 Days Qty: 3 1RF Rx Instructions: administer into each nostril alprazolam 0.25 mg tablet 0.25 mg PO DAILY PRN (Reason: anxiety) Qty: 90 0RF doxycycline hyclate 100 mg capsule 100 mg PO BID Qty: 20 0RF ProAir RespiClick 90 mcg/actuation aerosol powdr breath activated 2 inh inhalation Q4-6H PRN (Reason: shortness of breath or wheezing) 90 Days Qty: 1 3RF montelukast 10 mg tablet 10 mg PO BEDTIME 90 Days Qty: 90 3RF Pulmicort Flexhaler 180 mcg/actuation aerosol powdr breath activated 1 inh inhalation BID 90 Days Qty: 3 3RF prednisone 5 mg tablet 5 mg PO BID 20 Days Qty: 30 0RF Rx Instructions: ONE TAB BID FOR 10 DAYS , THEN ONE TAB. PO DAILY FOR 10 DAYS Referrals: Melissa Shannon MD [Primary Care Provider] -
[2021-10-04 08:11] VITALS: BP 183/73; PULSE 88; RESP 18; O2SAT 98
[2021-10-04] MEDS: oxyCODONE HCl Immed Release 5 MG TABLET PO (08:37)
[2021-10-04] MEDS: Magnesium Hydrox/Alum Hydrox 30 ML ORAL.SUSP PO (08:37)
== END 2021-10-04 10:44 | disposition home or self-care (01) ==
PROVIDERS: Emergency Provider Emergency Medicine; PCP Internal Medicine
DX: M19.011 Primary osteoarthritis, right shoulder (principal); I48.0 Paroxysmal atrial fibrillation; E11.9 Type 2 diabetes mellitus without complications; I10 Essential (primary) hypertension; J44.9 Chronic obstructive pulmonary disease, unspecified; Z86.718 Personal history of other venous thrombosis and embolism; Z20.822 Contact with and (suspected) exposure to COVID-19
CPT/HCPCS: 36415; 73030; 80053; 84484; 85025; 87635; 93005; 99283; 99284

== ENCOUNTER → 2021-12-29 14:07 | Outpatient (BNVA) | payer MEDICARE, MEDICAID, SELFPAY | PROVIDERS: PCP Internal Medicine; Visit Provider Internal Medicine | DX: J44.9 Chronic obstructive pulmonary disease, unspecified (principal); J30.9 Allergic rhinitis, unspecified; Z79.899 Other long term (current) drug therapy | CPT/HCPCS: 99212 ==

== ENCOUNTER 2022-01-05 10:21 | Outpatient (REF) | payer MEDICARE, MEDICAID, SELFPAY ==
[2022-01-05 10:50] LABS: Binax Internal Control QC Valid; Binax Now Covid-19 Ag Negative (Negative); Binax Performed by: HO.BONILM
== END 2022-01-05 10:22 | disposition home or self-care (01) ==
LOC: HO.HMGCLDS 10:21
PROVIDERS: PCP Internal Medicine; Visit Provider Nurse Practitioner Family
DX: Z20.822 Contact with and (suspected) exposure to COVID-19 (principal); J06.9 Acute upper respiratory infection, unspecified
CPT/HCPCS: 87811; C9803

== ENCOUNTER 2022-04-07 08:13 | Outpatient (REF) | payer MEDICARE, MEDICAID, SELFPAY ==
[2022-04-07 12:29] LABS: Creatinine Urine 141.33 mg/dL; Microalbum/Creatinine Ratio Ur 21.9 ug/mg cr
[2022-04-07 14:42] LABS: Estimated Average Glucose 134 mg/dL; Hemoglobin A1c % 6.3 %
[2022-04-07 15:17] LABS: Folate 17.2 ng/mL (> or = 4.0); Vitamin B12 499 pg/mL (200-900)
[2022-04-07 16:44] LABS: Alanine Aminotransferase 16 U/L (0-31); Anion Gap 15 (12-20); Aspartate Amino Transferase 19 U/L (5-31); Blood Urea Nitrogen 15 mg/dL (9-16); Calcium 9.8 mg/dL (8.4-10.2); Carbon Dioxide 27 mmol/L (22-29); Chloride 104 mmol/L (96-108); Cholesterol 184 mg/dL; Estimated Glomerular Filt Rate > 60; Glucose Fasting 149 mg/dL (60-99); HDL Cholesterol 52 mg/dL; LDL Cholesterol Calculated 100 mg/dl; Potassium 4.1 mmol/L (3.3-5.1); Sodium 142 mmol/L (135-145); Triglycerides 160 mg/dL; Vitamin D 25-OH Total 116.4 ng/mL (>30)
== END 2022-04-07 08:14 | disposition home or self-care (01) ==
LOC: HO.HMGCLDS 08:13
PROVIDERS: PCP Internal Medicine; Visit Provider Internal Medicine
DX: E11.9 Type 2 diabetes mellitus without complications (principal); E78.00 Pure hypercholesterolemia, unspecified; I10 Essential (primary) hypertension; M81.0 Age-related osteoporosis without current pathological fracture; N95.9 Unspecified menopausal and perimenopausal disorder; Z87.81 Personal history of (healed) traumatic fracture
CPT/HCPCS: 36415; 80048; 80061; 82043; 82306; 82607; 82746; 83036; 84450; 84460

== ENCOUNTER 2022-04-20 08:27 | Outpatient (REF) | payer MEDICARE, MEDICAID, SELFPAY ==
[2022-04-20 11:55] LABS: Anion Gap 13 (12-20); Blood Urea Nitrogen 18 mg/dL (9-16); Calcium 9.4 mg/dL (8.4-10.2); Carbon Dioxide 29 mmol/L (22-29); Chloride 104 mmol/L (96-108); Estimated Glomerular Filt Rate > 60; Glucose Random 151 mg/dL (60-115); Sodium 142 mmol/L (135-145)
[2022-04-20 12:33] LABS: Magnesium 1.3 mg/dL (1.6-2.6)
== END 2022-04-20 08:28 | disposition home or self-care (01) ==
LOC: HO.HMGCLDS 08:27
PROVIDERS: PCP Internal Medicine; Visit Provider Nurse Practitioner Family
DX: I48.0 Paroxysmal atrial fibrillation (principal); I10 Essential (primary) hypertension
CPT/HCPCS: 36415; 80048; 83735

== ENCOUNTER 2022-04-22 10:06 | Outpatient (REF) | payer MEDICARE, MEDICAID, SELFPAY ==
[2022-04-22 12:26] LABS: Anion Gap 11 (12-20); Blood Urea Nitrogen 17 mg/dL (9-16); Calcium 9.4 mg/dL (8.4-10.2); Carbon Dioxide 32 mmol/L (22-29); Chloride 102 mmol/L (96-108); Estimated Glomerular Filt Rate > 60; Glucose Random 140 mg/dL (60-115); Potassium 3.7 mmol/L (3.3-5.1); Sodium 141 mmol/L (135-145)
[2022-04-22 13:37] LABS: Magnesium 1.4 mg/dL (1.6-2.6)
== END 2022-04-22 10:07 | disposition home or self-care (01) ==
LOC: HO.HMGCLDS 10:06
PROVIDERS: PCP Internal Medicine; Visit Provider Nurse Practitioner Family
DX: I48.0 Paroxysmal atrial fibrillation (principal); I10 Essential (primary) hypertension
CPT/HCPCS: 36415; 80048; 83735

== ENCOUNTER 2022-04-28 09:05 | Outpatient (REF) | payer MEDICARE, MEDICAID, SELFPAY ==
[2022-04-28 11:43] LABS: Anion Gap 16 (12-20); Blood Urea Nitrogen 20 mg/dL (9-16); Calcium 9.6 mg/dL (8.4-10.2); Carbon Dioxide 27 mmol/L (22-29); Chloride 101 mmol/L (96-108); Estimated Glomerular Filt Rate > 60; Glucose Random 169 mg/dL (60-115); Magnesium 1.5 mg/dL (1.6-2.6); Potassium 3.9 mmol/L (3.3-5.1); Sodium 140 mmol/L (135-145)
== END 2022-04-28 09:06 | disposition home or self-care (01) ==
LOC: HO.HMGCLDS 09:05
PROVIDERS: PCP Internal Medicine; Visit Provider Nurse Practitioner Family
DX: I48.0 Paroxysmal atrial fibrillation (principal)
CPT/HCPCS: 36415; 80048; 83735

== ENCOUNTER → 2022-04-29 13:24 | Outpatient (BNVA) | payer MEDICARE, MEDICAID, SELFPAY | PROVIDERS: PCP Internal Medicine; Visit Provider Internal Medicine | DX: J44.9 Chronic obstructive pulmonary disease, unspecified (principal); J30.9 Allergic rhinitis, unspecified; Z79.899 Other long term (current) drug therapy | CPT/HCPCS: 99212 ==

== ENCOUNTER 2022-06-22 10:04 | Emergency (ER) | payer MEDICARE, MEDICAID, SELFPAY ==
--- NOTE | ~2022-06-22 | XR_ITS ---
EXAMINATION: XR KNEE, RIGHT CLINICAL INFORMATION: Fall, COMPARISON: Right knee radiograph 06/07/2012 and AP standing knee radiographs 08/05/2017. TECHNIQUE: Two views of the right knee. FINDINGS: Advanced degenerative changes are seen in the right knee with severe narrowing of the medial and patellofemoral joints and relative preservation of the lateral joint compartment. Diffuse marginal osteophytes are seen. Prominent genu varum, similar to prior. No acute osseous abnormality. Chondrocalcinosis is seen in the lateral compartment. 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 No acute findings are seen.
--- NOTE | ~2022-06-22 | CT_ITS ---
EXAMINATION: CT HEAD W/O IV CONTRAST CT FACIAL BONES WITHOUT IV CONTRAST CT CERVICAL SPINE W/O IV CONTRAST CLINICAL INFORMATION: 82-year-old female with history of fall, head injury, forehead hematoma. Evaluate for fracture. COMPARISON: CT images of head and cervical spine from 03/18/2021. TECHNIQUE: Head - Contiguous axial imaging of the head was performed from the skull base to the vertex without the administration of intravenous contrast, and axial images are reconstructed at 2 mm and 5 mm slice thickness. Cervical spine and facial bones - Volumetric, helical CT acquisitions of the cervical spine and facial bones obtained without contrast; in addition to the standard set of axial images, multiplanar reformatted images were provided in the coronal and sagittal imaging planes. This CT examination was performed using dose optimization techniques as appropriate, variously including the following: *Automated exposure control *Adjustment of mA and/or kV according to patient size (this includes techniques or standardized protocols for targeted exams where dose is matched to indication/reason for exam; i.e. extremities or head) *Use of iterative reconstruction technique DLP: 1077 mGy-cm (total) FINDINGS: HEAD: No acute intracranial findings compared to 03/18/2021. Park to white matter differentiation is preserved. No evidence of intracranial hemorrhage, major vascular territory infarction, focal mass effect or midline shift. Mild parenchymal volume loss with commensurate prominence of ventricles and sulci. No hydrocephalus or extra-axial fluid collections. There is atherosclerotic calcification of cavernous carotid arteries and proximal intradural segments of vertebral arteries. The calvarium is intact and the mastoid air cells and middle ear cavities are clear. The hyperdense frontal scalp hematoma measures up to 0.8 cm in AP thickness. FACIAL BONES: The globes and orbital butts, including lamina papyracea, are intact. The orbital apex, optic canals, and retrobulbar fat planes are normal. The maxilla, mandible and temporomandibular joints are intact. 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 Nasal bones, pterygoid plates and zygomatic arches are normal. The paranasal sinuses are well-aerated and the ostiomeatal units are patent. No air-fluid levels in the paranasal sinuses. CERVICAL SPINE: The cervical spine has normal curvature. The skull base, C1 and C2 lateral masses and atlantodental articulation are intact. Calcium deposition (likely calcium pyrophosphate dihydrate crystal deposition) along the transverse ligament posterior to the dens. No dens fracture. The vertebral body heights and alignment are maintained. No fractures in the anterior or posterior elements. No prevertebral soft tissue edema. Mild discovertebral degenerative changes of the cervical spine. Mild and moderate multilevel facet arthropathy. There are foci of chronic calcium deposition along ligamentum flava, most pronounced at C3-C4. No spinal hematoma or focal fluid collection in the visualized neck. Thyroid gland is unremarkable. The visualized lung apices are unremarkable. CT/CT cervical spine wo IV con IMPRESSION: * No intracranial hemorrhage or other acute intracranial pathology. * No fracture or malalignment in the degenerated cervical spine. * No evidence of maxillofacial bone fracture. * There is a frontal scalp hematoma without calvarial fracture.
[2022-06-22 10:11] VITALS: BP 151/65; PULSE 79; RESP 20; TEMP 36.4; O2SAT 99; BMI 31.2
[2022-06-22] MEDS: Bacitracin Oint 0.9 GM PACKET 1 APPL TOPICAL (11:57)
[2022-06-22] MEDS: Diphth,Pertus(ACell),Tet Adult 0.5 ML SYRINGE IM (11:57)
--- NOTE | 2022-06-22 12:00 | PC.NURSE ---
Bacitracin applied to bridge of pt's nose. Awaiting CT scan results, offering no complaints.
--- NOTE | 2022-06-22 14:35 | ED_ITS ---
HPI - Fall General Chief Complaint: Fall Stated Complaint: Fall/Head inj Time Seen by Provider: 06/22/22 10:53 Source: patient Mode of arrival: EMS Limitations: no limitations History of Present Illness HPI Narrative: 82-year-old female who presents emergency department for evaluation of fall out of bed with head and facial injury . The patient states she was in bed and she was dreaming that she was falling and then she fell out of bed. She struck her head. She denied loss of consciousness. The patient went to an urgent care clinic and was referred to the emergency department for further testing. The patient has a hematoma to her forehead with ecchymosis of the forehead, nose and medial aspects of the orbits bilaterally. The patient states she is having pain in her forehead but denies nausea, vomiting, numbness or weakness. The patient states that she gets recurrent diverticulitis and she believes that she has diverticulitis at this time. She states that over the last week she has been having lower abdominal pain greater on the left lower quadrant area. She has also had multiple episodes of loose diarrheal stool. She states that when she gets the symptoms she needs to be on antibiotics. She denied fever, chills, frequency, urgency, dysuria. She has not noticed any dark tarry stools or bloody stools. Related Data Home Medications Medication Instructions Recorded Confirmed metoprolol succinate 50 mg 75 mg PO DAILY 04/09/22 04/29/22 tablet,extended release 24 hr Previous Rx's Medication Instructions Recorded blood-glucose meter (FreeStyle #1 ea 04/09/20 Lite Meter kit) budesonide 180 mcg/actuation 1 inh inhalation BID 90 days #3 ea 12/30/20 breath activated powder inhaler (Pulmicort Flexhaler) tizanidine 4 mg tablet 4 mg PO Q8H PRN muscle spasticity 05/06/21 #90 tabs pantoprazole 40 mg tablet,delayed 40 mg PO DAILY #90 ea 06/29/21 release rosuvastatin 20 mg tablet 20 mg PO BEDTIME #90 tabs 07/29/21 sitagliptin phosphate 50 1 tab PO BID 90 days #180 tabs 02/03/22 mg-metformin 500 mg tablet montelukast 10 mg tablet 10 mg PO BEDTIME #90 tabs 02/08/22 allopurinol 100 mg tablet 100 mg PO DAILY #90 tabs 03/24/22 duloxetine 30 mg capsule,delayed 30 mg PO BID 90 days #180 caps 03/24/22 release fluticasone propionate 50 1 spray intranasal BID 3 months #3 03/24/22 mcg/actuation nasal multiple units spray,suspension losartan 50 mg tablet 50 mg PO DAILY #90 tabs 03/24/22 albuterol sulfate 2.5 mg/3 mL 2.5 mg (3 mL) inhalation Q6H PRN 03/31/22 (0.083 %) solution for nebulization shortness of breath or wheezing #180 mL alprazolam 0.25 mg tablet 0.25 mg PO DAILY PRN anxiety #90 04/03/22 tabs Serevent Diskus 50 mcg/dose powder 1 inh inhalation BID #120 ea 04/05/22 for inhalation (salmeterol) epinephrine 0.3 mg/0.3 mL 0.3 mg (0.3 mL) IM ONCE PRN 05/20/22 injection, auto-injector (EpiPen) anaphylaxis #1 ea levofloxacin 500 mg tablet 500 mg PO DAILY #5 tabs 06/02/22 albuterol sulfate 90 mcg/actuation 2 puff inhalation Q4-6H PRN for 06/17/22 aerosol inhaler wheezing #1 ea acetaminophen 300 mg-codeine 15 mg 1 tab PO Q4-6H PRN cough,pain #10 06/22/22 tablet tabs ciprofloxacin HCl 500 mg tablet 500 mg PO Q12H 7 days #14 tabs 06/22/22 (Cipro) metronidazole 500 mg tablet 500 mg PO TID 7 days #21 tabs 06/22/22 Allergies Allergy/AdvReac Type Severity Reaction Status Date / Time Penicillins [PENICILLINS] Allergy Intermediate rash Verified 06/22/22 11:38 meperidine [Demerol] Allergy Unknown Nausea and Verified 06/22/22 11:38 Vomiting oxycodone Allergy Unknown Nausea and Verified 06/22/22 11:38 Vomiting Sulfa (Sulfonamide Allergy Unknown NAUSEA & Verified 06/22/22 11:38 Antibiotics) VOMITING, [SULFA (SULFONAMIDE GI upset ANTIBIOTICS)] warfarin [WARFARIN] AdvReac Severe UNKNOWN Verified 06/22/22 11:38 aspirin [ASPIRIN] AdvReac Mild gi bleed Verified 06/22/22 11:38 enoxaparin [From LOVENOX] AdvReac Unknown INTERNAL Verified 06/22/22 11:38 BLEEDING heparin [HEPARIN] AdvReac Unknown INTERNAL Verified 06/22/22 11:38 BLEEDING ibuprofen AdvReac Unknown GI bleed Verified 06/22/22 11:38 Chocolate AdvReac Diarrhea Verified 06/22/22 11:38 Review of Systems Review of Systems: Yes all other systems are reviewed and are negative [facility] Past Medical History [facility] Narrative: Social history: She denies tobacco, alcohol and drug use. 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) Anxiety disorder Compression fracture of body of thoracic vertebra COPD (chronic obstructive pulmonary disease) COVID-19 Deep vein thrombosis (DVT) of left lower extremity Diverticulitis GERD (gastroesophageal reflux disease) Gout History of compression fracture of spine Hyperlipidemia Hypertension Multiple lipomas Nodular lesion on surface of skin Osteoporosis Paroxysmal atrial fibrillation Seasonal allergies Type 2 diabetes mellitus without complication, without long-term current use of insulin Surgical History H/O local excision of skin lesion Family History Family History Mother Mental health disorder Sister CVA (cerebral vascular accident) Daughter Brain tumor Diabetes Bipolar 1 disorder Heart abnormality Mental illness in member of household Mental health disorder Father Substance use disorder Son Mental health disorder Social History Social History Household Members: Family Housing: House Do you presently have visiting nurse or other home services: No Alcohol intake: never Patient Tobacco Use Status: Former Tobacco user Years Smoked: 10 yrs e-Cigarette/Vaping Use: Never Used Second Hand Smoke Exposure: No Advance Directives: Yes Advance Directives on File: Yes Advance Directives Date on File: 07/27/21 service: No Current occupational status: retired Cognitive needs: No Hearing needs: No Vision needs: Yes Physical Exam Vital Signs: Vital Signs: Last Vital Signs Temp 97.6 F 06/22/22 10:11 Pulse 79 06/22/22 10:11 Resp 20 02/28/23 10:11 BP 151/65 H 02/28/23 10:11 Pulse Ox 99 06/22/22 10:11 O2 Del Method 06/22/22 10:11 BMI result Body Mass Index 31.2 Const: Other: Awake, alert, female patient, pleasant, cooperative no distress. The patient has a left to mid forehead hematoma which is tender to palpation, she has ecchymosis over the forehead, bridge of the nose and medial orbits bilaterally. HEENT: Head: Yes normal to inspection, Yes normocephalic and Yes atraumatic Ears: external ears normal General nose exam: Normal external nose present Face and sinus: Yes normal facial exam Mouth: Normal oral and palatal mucosa present Throat: Yes posterior oropharynx normal Eyes: General: appearance normal, both eyes and all related structures Pupils: Equal, round and reactive pupils present Neck: Neck: Yes normal visual inspection, Yes no lymphadenopathy, Yes trachea midline and Yes supple Chest: Chest palpation & inspection: normal inspection of the chest and normal palpation of entire chest wall Resp: Effort & Inspection: normal respiratory effort and able to speak in complete sentences Auscultation: clear to auscultation bilaterally Cardio: Rate: regular rate Rhythm: regular rhythm Heart sounds: S1 normal heart sound present, S2 normal heart sound present and no murmurs GI: Inspection: Yes normal to inspection Palpation (GI): Soft to palpation, nontender and no guarding Auscultation: normal bowel sounds : General: Yes no CVA tenderness Back/Spine/Pelvis: Back: no CVA tenderness Skin: General skin exam: no rashes or lesions noted Neuro: Cranial nerves: Yes CN's II-XII intact bilaterally and Yes Equal, round and reactive pupils present Cognition (Neuro): normal cognition Motor exam (neuro): 5/5 motor strength present throughout Extrem: General: Yes normal to inspection Psych: Appearance: grossly normal Speech and movement: Normal speech and movement present Affect: normal affect Attitude: cooperative Thought process: Normal thought process present Thought content: Normal thought content present Medications Administered Discontinued Medications Generic Name Dose Route Start Last Admin Trade Name Freq PRN Reason Stop Dose Admin Bacitracin 1 appl 06/22/22 11:23 06/22/22 11:57 Bacitracin Oint 0.9 Gm Packet TOPICAL 06/22/22 11:24 1 appl ONCE ONE Administration Protocol Diphtheria/Tetanus/Acell Pertussis 0.5 ml 06/22/22 11:23 06/22/22 11:57 Diphth,Pertus(Acell),Tet Adult 0.5 Ml Syringe IM 06/22/22 11:24 0.5 ml .ONCE ONE Administration Medical Decision Making Radiology Impression Discussion of test interpretation with radiology: I have reviewed the radiologist's reading. Radiologist Impression: EXAMINATION: CT HEAD W/O IV CONTRAST CT FACIAL BONES WITHOUT IV CONTRAST CT CERVICAL SPINE W/O IV CONTRAST IMPRESSION: * No intracranial hemorrhage or other acute intracranial pathology. * No fracture or malalignment in the degenerated cervical spine. * No evidence of maxillofacial bone fracture. * There is a frontal scalp hematoma without calvarial fracture. 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 No acute findings are seen. Dictated By:Ko Desouza MDSigned By:<Electronically signed by Ko Desouza MD in [place]>06/22/22 1039 Discharge Plan Discharge Clinical Impression: Diverticulitis Closed head injury Qualifiers: Encounter type: initial encounter Qualified Code(s): S09.90XA - Unspecified injury of head, initial encounter Contusion of face Qualifiers: Encounter type: initial encounter Qualified Code(s): S00.83XA - Contusion of other part of head, initial encounter Traumatic hematoma of forehead Qualifiers: Encounter type: initial encounter Qualified Code(s): S00.83XA - Contusion of other part of head, initial encounter Contusion of knee, right Qualifiers: Encounter type: initial encounter Qualified Code(s): S80.01XA - Contusion of right knee, initial encounter Patient Disposition: Home, Self-Care Instructions: Diverticulitis (ED), Head Injury (ED) Additional Instructions: The CT scan of your head, face and neck were normal with no broken bones or bleeding in the brain which is reassuring. The x-ray of your right knee revealed no broken bones Your exam of your abdomen and your symptoms are consistent with recurrence of her diverticulitis. Take ciprofloxacin 500 mg pills, 1 pill every 12 hours for 7 days. Take metronidazole 500 mg pills, 1 pill twice a day for 7 days Take Tylenol with codeine#3, One pill every 4-6 hours as needed for pain. Follow-up with your doctor in 2 days. Please return to the emergency department if your symptoms get worse or if you develop any symptoms that are concerning to you. Prescriptions: New acetaminophen-codeine 300-15 mg tablet 1 tab PO Q4-6H PRN (Reason: cough,pain) Qty: 10 0RF Rx Instructions: Patient may request partial fill metronidazole 500 mg tablet 500 mg PO TID 7 Days Qty: 21 0RF ciprofloxacin HCl [Cipro] 500 mg tablet 500 mg PO Q12H 7 Days Qty: 14 0RF No Action (DME) blood-glucose meter [FreeStyle Lite Meter] Kit See Rx Instructions .ROUTE .MEDSUPPLY Qty: 1 0RF Rx Instructions: Check blood sugar once a day as directed tizanidine 4 mg tablet 4 mg PO Q8H PRN (Reason: muscle spasticity) Qty: 90 0RF Rx Instructions: Take one tab 3 times a day as needed for muscle spasms, back pain. pantoprazole 40 mg tablet,delayed release (DR/EC) 40 mg PO DAILY Qty: 90 2RF rosuvastatin 20 mg tablet 20 mg PO BEDTIME Qty: 90 3RF sitagliptin phos-metformin 50-500 mg tablet 1 tab PO BID 90 Days Qty: 180 1RF montelukast 10 mg tablet 10 mg PO BEDTIME Qty: 90 3RF losartan 50 mg tablet 50 mg PO DAILY Qty: 90 1RF fluticasone propionate 50 mcg/actuation spray,suspension 1 spray intranasal BID 90 Days Qty: 3 1RF Rx Instructions: administer into each nostril allopurinol 100 mg tablet 100 mg PO DAILY Qty: 90 1RF duloxetine 30 mg capsule,delayed release(DR/EC) 30 mg PO BID 90 Days Qty: 180 2RF albuterol sulfate 2.5 mg /3 mL (0.083 %) solution for nebulization 2.5 mg inhalation Q6H PRN (Reason: shortness of breath or wheezing) Qty: 180 2RF alprazolam 0.25 mg tablet 0.25 mg PO DAILY PRN (Reason: anxiety) Qty: 90 0RF Serevent Diskus 50 mcg/dose blister with device 1 inh inhalation BID Qty: 120 3RF epinephrine [EpiPen] 0.3 mg/0.3 mL auto-injector 0.3 mg IM ONCE PRN (Reason: anaphylaxis) Qty: 1 0RF Rx Instructions: do not exceed 12 doses per 24 hrs albuterol sulfate 90 mcg/actuation HFA aerosol inhaler 2 puff inhalation Q4-6H PRN (Reason: for wheezing) Qty: 1 0RF metoprolol succinate 50 mg tablet extended release 24 hr 75 mg PO DAILY Protocol: Hold for SBP/HR < HOLD for SBP < : 90 HOLD for HR < : 60 levofloxacin 500 mg tablet 500 mg PO DAILY Qty: 5 0RF Pulmicort Flexhaler 180 mcg/actuation aerosol powdr breath activated 1 inh inhalation BID 90 Days Qty: 3 3RF
[2022-06-22 15:31] VITALS: BP 165/87; PULSE 96; RESP 18; O2SAT 96
== END 2022-06-22 15:33 | disposition home or self-care (01) ==
PROVIDERS: Emergency Provider Emergency Medicine Emergency Medical Services; PCP Internal Medicine
DX: S09.90XA Unspecified injury of head, initial encounter (principal); S00.83XA Contusion of other part of head, initial encounter; S80.01XA Contusion of right knee, initial encounter; K57.32 Diverticulitis of large intestine without perforation or abscess without bleeding; R51.9 Headache, unspecified; M54.2 Cervicalgia; R10.32 Left lower quadrant pain; M25.561 Pain in right knee; W06.XXXA Fall from bed, initial encounter; Y93.9 Activity, unspecified; Y92.9 Unspecified place or not applicable; Y99.9 Unspecified external cause status; Z87.891 Personal history of nicotine dependence; Z79.899 Other long term (current) drug therapy; Z23 Encounter for immunization
CPT/HCPCS: 70450; 70486; 72125; 73560; 90471; 90715; 99284

== ENCOUNTER 2022-08-02 07:38 | Outpatient (REF) | payer MEDICARE, MEDICAID, SELFPAY ==
[2022-08-02 11:51] LABS: Alanine Aminotransferase 14 U/L (0-31); Anion Gap 16 (12-20); Aspartate Amino Transferase 18 U/L (5-31); Blood Urea Nitrogen 23 mg/dL (9-16); Calcium 9.5 mg/dL (8.4-10.2); Carbon Dioxide 27 mmol/L (22-29); Chloride 104 mmol/L (96-108); Cholesterol 184 mg/dL; Estimated Glomerular Filt Rate > 60; Glucose Fasting 148 mg/dL (60-99); HDL Cholesterol 44 mg/dL; LDL Cholesterol Calculated 94 mg/dl; Potassium 3.9 mmol/L (3.3-5.1); Sodium 143 mmol/L (135-145); Triglycerides 234 mg/dL
[2022-08-02 11:53] LABS: Estimated Average Glucose 134 mg/dL; Hemoglobin A1c % 6.3 %
[2022-08-02 12:12] LABS: Vitamin D 25-OH Total 102.2 ng/mL (>30)
== END 2022-08-02 07:39 | disposition home or self-care (01) ==
LOC: HO.HMGCLDS 07:38
PROVIDERS: PCP Internal Medicine; Visit Provider Internal Medicine
DX: M81.0 Age-related osteoporosis without current pathological fracture (principal); E11.9 Type 2 diabetes mellitus without complications; E78.5 Hyperlipidemia, unspecified; I10 Essential (primary) hypertension; Z87.81 Personal history of (healed) traumatic fracture
CPT/HCPCS: 36415; 80048; 80061; 82306; 83036; 84450; 84460

== ENCOUNTER → 2022-08-30 13:28 | Outpatient (BNVA) | payer MEDICARE, MEDICAID, SELFPAY | PROVIDERS: PCP Internal Medicine; Visit Provider Internal Medicine | DX: J44.9 Chronic obstructive pulmonary disease, unspecified (principal); J30.9 Allergic rhinitis, unspecified; Z79.899 Other long term (current) drug therapy | CPT/HCPCS: 99212 ==

== ENCOUNTER 2022-09-25 12:18 | Emergency (ER) | payer MEDICARE, MEDICAID, SELFPAY ==
--- NOTE | ~2022-09-25 | XR_ITS ---
EXAMINATION: XR CHEST CLINICAL INFORMATION: Shortness of breath COMPARISON: 08/31/2021 TECHNIQUE: Frontal view of the chest was obtained. FINDINGS: Lungs are well expanded. No acute pulmonary abnormality. No evidence of pulmonary edema, focal consolidation or pleural effusion. The chronic smooth contour change of the medial left diaphragm appears to correspond to a fat-containing Bochdalek hernia. Cardiac silhouette is normal in size. There is atherosclerotic calcification of the aorta. Skeletal findings include chronic severe osteoarthritis of glenohumeral joints. XR/XR chest 1V IMPRESSION: No evidence of pneumonia. No acute pulmonary disease.
[2022-09-25 12:35] VITALS: BP 176/74; BP 182/76; PULSE 143; PULSE 96; RESP 18; TEMP 37.2; O2SAT 98; O2SAT 99; BMI 33.3
[2022-09-25 12:39] VITALS: BP 160/68; PULSE 98; RESP 18; TEMP 36.8; O2SAT 98
--- NOTE | 2022-09-25 12:45 | PC.NURSE ---
Alert and oriented. Arrived via ems from walk in clinic with sob and copd exacerbation. States that last week she sat outside and then shortly after started with the sob. States she has allergies. Wheezing heard bilaterally. no lower extremity edema noted. nsr on monitor. was seen at the walk in clinic and has taken 3 pills of prednsone for 3 days with some relief. 98% on RA no sob at rest. Son at bedside
--- NOTE | 2022-09-25 13:18 | ECG_ITS ---
Test Reason : Chest Pain Blood Pressure : / mmHG Vent. Rate : 092 BPM Atrial Rate : 092 BPM P-R Int : 140 ms QRS Dur : 112 ms QT Int : 406 ms P-R-T Axes : 041 -17 -08 degrees QTc Int : 502 ms Sinus rhythm with marked sinus arrhythmia Incomplete right bundle branch block Prolonged QT Abnormal ECG When compared with ECG of 04-OCT-2021 05:30, No significant change was found Referred By: Jennifer Reis Electronically Signed By:LEONELA SRINIVASAN MD
[2022-09-25 13:46] LABS: MANUAL DIFF FLAG NO
[2022-09-25 13:53] LABS: Basophils Absolute Auto 0.1 X10*3/uL (0.0-0.2); Basophils Percent Auto 0.6 % (0-2); Eosinophils Absolute Auto 0.1 X10*3/uL (0.0-0.4); Eosinophils Percent Auto 1.4 % (0-4); Hematocrit 33.7 % (37.0-47.0); Hemoglobin 11.1 g/dl (12.0-16.0); Imm Gran Abs Auto 0.04 X10*3/uL (0.00-0.03); Imm Gran Pct Auto 0.4 % (0.0-0.4); Lymphocytes Absolute Auto 1.8 X10*3/uL (1.2-4.9); Lymphocytes Percent Auto 19.5 % (20-40); Mean Corpuscular HGB Conc 32.9 g/dl (31.0-35.0); Mean Corpuscular Hemoglobin 28.5 pg (27.0-33.0); Mean Corpuscular Volume 86.4 fL (80.0-98.0); Mean Platelet Volume 10.4 fL (9.4-12.3); Monocytes Absolute Auto 0.8 X10*3/uL (0.1-1.2); Monocytes Percent Auto 8.4 % (2-11); Neutrophils Absolute Auto 6.3 x10*3/uL (2.0-8.3); Neutrophils Percent Auto 69.7 % (45-73); Platelet Count 267 X10*3/uL (160-400); Red Cell Distribution Width 15.7 % (11.0-16.0); White Blood Count 9.1 X10*3/uL (4.8-10.8)
[2022-09-25 14:05] LABS: Alanine Aminotransferase 17 U/L (0-31); Albumin Level 3.9 g/dL (3.5-5.0); Alkaline Phosphatase 72 U/L (39-117); Anion Gap 16 (12-20); Aspartate Amino Transferase 21 U/L (5-31); Bilirubin Direct 0.2 mg/dL (0.0-0.5); Bilirubin Total 0.5 mg/dL (0.0-1.0); Blood Urea Nitrogen 16 mg/dL (9-16); Calcium 9.2 mg/dL (8.4-10.2); Carbon Dioxide 26 mmol/L (22-29); Chloride 103 mmol/L (96-108); Creatinine Clr Calc Pharmacy 52.7; Estimated Glomerular Filt Rate > 60; Glucose Random 115 mg/dL (60-115); Lipase 16 U/L (8-78); Magnesium 1.5 mg/dL (1.6-2.6); Sodium 141 mmol/L (135-145); Total Protein 6.8 g/dL (6.5-8.0)
[2022-09-25 14:12] VITALS: PULSE 92; RESP 18; O2SAT 97
--- NOTE | 2022-09-25 14:15 | ED.URI ---
HPI - URI/Sore Throat General Chief Complaint: Upper Respiratory Symptoms Stated Complaint: SOB W/WHEEZE,COUGH X1 WEEK PER EMS Time Seen by Provider: 09/25/22 13:01 Source: patient and RN notes reviewed Mode of arrival: ambulatory Limitations: no limitations History of Present Illness HPI Narrative: This is a 82-year-old female, with a past medical history of COPD, osteoporosis, paroxysmal atrial fibrillation, GERD, type 2 diabetes, and hypertension, presents to the emergency department with complaints of wheezing, cough, and shortness of breath x6 days. Patient reports she initially felt a wheezing like symptom on Tuesday and went to see her doctor on Tuesday where she was prescribed a 3 day course of prednisone and levaquin, reports that she is taking her last dose today however her symptoms have not improved. She denies any fevers, chills, sore throat, ear pain, chest pain, palpitations, abdominal pain, nausea, vomiting, or diarrhea. She has been taking her inhalers at home without any relief. No other complaints or concerns at this time. MD elicited complaint: cough Onset (ago): day(s) Consistency: constant Severity: moderate Able to tolerate fluids by mouth: Yes Exacerbating factors: nothing Relieving factors: nothing Associated symptoms: shortness of breath Treatments prior to arrival: none Related Data Home Medications Medication Instructions Recorded Confirmed metoprolol succinate 50 mg 75 mg PO DAILY 04/09/22 08/30/22 tablet,extended release 24 hr Previous Rx's Medication Instructions Recorded blood-glucose meter (FreeStyle #1 ea 04/09/20 Lite Meter kit) budesonide 180 mcg/actuation 1 inh inhalation BID 90 days #3 ea 12/30/20 breath activated powder inhaler (Pulmicort Flexhaler) tizanidine 4 mg tablet 4 mg PO Q8H PRN muscle spasticity 05/06/21 #90 tabs montelukast 10 mg tablet 10 mg PO BEDTIME #90 tabs 02/08/22 allopurinol 100 mg tablet 100 mg PO DAILY #90 tabs 03/24/22 fluticasone propionate 50 1 spray intranasal BID 3 months #3 03/24/22 mcg/actuation nasal multiple units spray,suspension losartan 50 mg tablet 50 mg PO DAILY #90 tabs 03/24/22 albuterol sulfate 2.5 mg/3 mL 2.5 mg (3 mL) inhalation Q6H PRN 03/31/22 (0.083 %) solution for nebulization shortness of breath or wheezing #180 mL Serevent Diskus 50 mcg/dose powder 1 inh inhalation BID #120 ea 04/05/22 for inhalation (salmeterol) epinephrine 0.3 mg/0.3 mL 0.3 mg (0.3 mL) IM ONCE PRN 05/20/22 injection, auto-injector (EpiPen) anaphylaxis #1 ea albuterol sulfate 90 mcg/actuation 2 puff inhalation Q4-6H PRN for 06/17/22 aerosol inhaler wheezing #1 ea alprazolam 0.25 mg tablet 0.25 mg PO DAILY PRN anxiety #90 07/07/22 tabs pantoprazole 40 mg tablet,delayed 40 mg PO DAILY #90 ea 07/07/22 release rosuvastatin 20 mg tablet 20 mg PO BEDTIME #90 tabs 07/07/22 sitagliptin phosphate 50 1 tab PO BID 90 days #180 tabs 07/29/22 mg-metformin 500 mg tablet duloxetine 30 mg capsule,delayed 30 mg PO BID 90 days #180 caps 08/11/22 release levofloxacin 500 mg tablet 500 mg PO DAILY #7 tabs 09/21/22 prednisone 20 mg tablet 40 mg PO DAILY #10 tabs 09/25/22 Allergies Allergy/AdvReac Type Severity Reaction Status Date / Time Penicillins [PENICILLINS] Allergy Intermediate rash Verified 09/25/22 11:12 meperidine [Demerol] Allergy Unknown Nausea and Verified 09/25/22 11:12 Vomiting oxycodone Allergy Unknown Nausea and Verified 09/25/22 11:12 Vomiting Sulfa (Sulfonamide Allergy Unknown NAUSEA & Verified 09/25/22 11:12 Antibiotics) VOMITING, [SULFA (SULFONAMIDE GI upset ANTIBIOTICS)] warfarin [WARFARIN] AdvReac Severe UNKNOWN Verified 09/25/22 11:12 aspirin [ASPIRIN] AdvReac Mild gi bleed Verified 09/25/22 11:12 enoxaparin [From LOVENOX] AdvReac Unknown INTERNAL Verified 09/25/22 11:12 BLEEDING heparin [HEPARIN] AdvReac Unknown INTERNAL Verified 09/25/22 11:12 BLEEDING ibuprofen AdvReac Unknown GI bleed Verified 09/25/22 11:12 Chocolate AdvReac Diarrhea Verified 09/25/22 11:12 Review of Systems Review of Systems: Constitutional: No Weight loss, No Fever, No Chills, No Night Sweats, No Fatigue, No Malaise ENT/Mouth: No Hearing loss, No Ear Pain, No Nasal Congestion, No Sinus Pain, No Hoarseness, No sore throat, No Rhinorrhea, No Swallowing Difficulty Eyes: No Eye Pain, No Swelling, No Redness, No Foreign Body, No Discharge, No Vision Changes Cardiovascular: No Chest Pain, + SOB, No Dyspnea on Exertion, No Orthopnea, No Edema, No Palpitations Respiratory: + Cough, No Sputum, + Wheezing, No Smoke Exposure, + Dyspnea Gastrointestinal: No Nausea, No Vomiting, No Diarrhea, No Constipation, No Abdominal pain, No Hematochezia, No Melena Genitourinary: No irregular bleeding, No Dysuria, No Urinary Frequency, No Hematuria, No Urinary Incontinence/retention, No Urgency, No Flank Pain, No Urinary Flow Changes, No Hesitancy Musculoskeletal: No joint pain, No Myalgias, No Joint Swelling Skin: No Skin Lesions, No rash Neuro: No Weakness, No Numbness, No Paresthesias, No Loss of Consciousness, No Dizziness, No Headache Psych: No Anxiety/Panic, No Depression, No SI/HI/AH/VH, No Social Issues, Heme/Lymph: No Bruising, No Bleeding,No Lymphadenopathy Endocrine: No Polyuria, No Polydipsia, No Temperature Intolerance Yes all other systems are reviewed and are negative Constitutional: Constitutional: Reports as per [facility] Past Medical History 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) Anxiety disorder Compression fracture of body of thoracic vertebra COPD (chronic obstructive pulmonary disease) COVID-19 Deep vein thrombosis (DVT) of left lower extremity Diverticulitis GERD (gastroesophageal reflux disease) Gout History of compression fracture of spine Hyperlipidemia Hypertension Multiple lipomas Nodular lesion on surface of skin Osteoporosis Paroxysmal atrial fibrillation Seasonal allergies Type 2 diabetes mellitus without complication, without long-term current use of insulin Surgical History H/O local excision of skin lesion Family History Family History Mother Mental health disorder Sister CVA (cerebral vascular accident) Daughter Brain tumor Diabetes Bipolar 1 disorder Heart abnormality Mental illness in member of household Mental health disorder Father Substance use disorder Son Mental health disorder Social History Social History Household Members: Family Housing: House Do you presently have visiting nurse or other home services: No Alcohol intake: former Patient Tobacco Use Status: Former Tobacco user Years Smoked: 10 yrs Smoked in Last 30 Days: No e-Cigarette/Vaping Use: Never Used Second Hand Smoke Exposure: No Use of substances other than those prescribed or required for medical reasons: No Advance Directives: Yes Advance Directives on File: Yes Advance Directives Date on File: 07/27/21 service: No Current occupational status: retired Cognitive needs: No Hearing needs: No Vision needs: Yes Physical Exam Vital Signs: Vital Signs: Last Vital Signs Temp 98.2 F 09/25/22 12:39 Pulse 112 H 09/25/22 18:02 Resp 18 09/25/22 18:02 BP 147/49 H 09/25/22 18:02 Pulse Ox 92 09/25/22 18:02 O2 Del Method Room Air 09/25/22 18:02 BMI result Body Mass Index 33.3 Const: General: cooperative, comfortable and no acute distress Orientation/consciousness: patient oriented x3 Limitations: no limitations HEENT: Head: Yes normal to inspection, Yes normocephalic and Yes atraumatic Ears: hearing grossly normal bilaterally General nose exam: Normal external nose present Face and sinus: Yes normal facial exam Mouth: Normal oral and palatal mucosa present, oropharynx normal and moist mucous membranes Throat: Yes posterior oropharynx normal Eyes: General: appearance normal, both eyes and all related structures Eyelids: Yes eyelids normal Conjunctivae: conjunctivae normal Sclerae: sclerae normal Pupils: Equal, round and reactive pupils present EOM: EOMs intact bilaterally Neck: Neck: Yes normal visual inspection, Yes full ROM and Yes no lymphadenopathy Lymphatic: no lymphadenopathy noted Chest: Chest palpation & inspection: normal inspection of the chest Resp: Other: Back to [place] wheezes noted throughout all lung barbosa, coarse lung sounds in the left lower base. Normal respiratory effort Effort & Inspection: normal respiratory effort, able to speak in complete sentences and audible wheezes Cardio: Rate: regular rate Rhythm: regular rhythm Heart sounds: S1 normal heart sound present and S2 normal heart sound present GI: Inspection: Yes normal to inspection Skin: General skin exam: no rashes or lesions noted Trauma: no lacerations or abrasions Wounds: no wounds Neuro: General: patient oriented x3 and moves all extremities Cranial nerves: Yes Equal, round and reactive pupils present Extrem: General: Yes normal to inspection Right upper extremity: normal to inspection Left upper extremity: normal to inspection Right lower extremity: normal to inspection Left lower extremity: normal to inspection Course Reevaluation(s) Reevaluation #1: Patient re-evaluated after receiving Solu-Medrol and updraft, patient's air movement improved however still with expiratory wheezing throughout, would benefit from albuterol updraft. Chest x-ray reviewed with no evidence of pneumonia, EKG normal sinus rhythm, viral swabs still pending. Patient requesting to be discharged home however given lung sounds still with expiratory wheezing would benefit from updraft prior to discharge. Vital signs have remained stable, 98% on room air, normal respiratory rate at 15 respirations per minute, patient afebrile. Time: 16:05 Reevaluation #2: Patient bleeding for albuterol updrafts, sign-out given to Slick Farrell PA-C pending re-evaluation Time: 16:35 Reevaluation #3: Patient re-evaluated, she reports feeling much better. Her lungs are clear to auscultation at this time. She is still slightly tachycardic to 112 but this is likely related to albuterol use. The patient is stable for discharge at this time. She is not hypoxic Time: 18:21 Medications Administered Discontinued Medications Generic Name Dose Route Start Last Admin Trade Name Freq PRN Reason Stop Dose Admin Acetaminophen 975 mg 09/25/22 14:54 09/25/22 15:00 Acetaminophen 325 Mg Tablet PO 09/25/22 14:55 975 mg ONCE ONE Administration Albuterol Sulfate 10 mg 09/25/22 16:07 09/25/22 16:34 Albuterol Sulfate (0.083%) 2.5 Mg/3 Ml Vial.Neb INHALE 09/25/22 16:08 10 mg ONCE ONE Administration Albuterol Sulfate 2.5 mg/ 0 mg 09/25/22 13:18 09/25/22 14:10 Albuterol/Ipratropium 3 ml INHALE 09/25/22 13:19 1 each ONCE ONE Administration Sodium Chloride 1,000 mls @ 999 mls/hr 09/25/22 14:27 09/25/22 16:18 Ns IV 09/25/22 15:27 Infused .Q1H1M ONE Infusion Methylprednisolone Sodium Succinate 125 mg 09/25/22 14:27 09/25/22 14:49 Methylprednisolone Sod Succ 125 Mg/2 Ml Vial IVPUSH 09/25/22 14:28 125 mg ONCE ONE Administration Medical Decision Making Medical Decision Making MDM Narrative: 82-year-old female, with a past medical history of COPD, osteoporosis, paroxysmal atrial fibrillation, GERD, type 2 diabetes, and hypertension, presents to the emergency department with complaints of wheezing, cough, and shortness of breath x6 days. Upon arrival, mildly hypertensive at 182/76, pulse of 143, oxygen saturation 99% on room air. These vital signs were rechecked soon after arriving into room and has been consistently in the 140s over 80s. Lung sounds with diffuse expiratory wheezing noted throughout with coarse crackles in the left lower base. Plan: Labs, EKG, chest x-ray, viral swabs, updraft, Solu-Medrol 125 IV push Differential Diagnosis Differential Diagnoses: The differential diagnosis associated with the presentation includes COPD exacerbation, pneumonia, upper respiratory infection, bronchitis Admission/Observation Consideration of admission/observation: Escalation of care including admission/observation considered Lab Data [facility] Lab Attestation statement: I reviewed the patient's lab results. 09/25/22 13:37 09/25/22 13:37 Labs: Lab Results 09/25/22 09/25/22 09/25/22 Range/Units 13:37 13:37 13:37 WBC 9.1 (4.8-10.8) X10*3/uL RBC 3.90 L (4.20-5.50) X10*6/uL Hgb 11.1 L (12.0-16.0) g/dl Hct 33.7 L (37.0-47.0) % MCV 86.4 (80.0-98.0) fL MCH 28.5 (27.0-33.0) pg MCHC 32.9 (31.0-35.0) g/dl RDW 15.7 (11.0-16.0) % Plt Count 267 (160-400) X10*3/uL MPV 10.4 (9.4-12.3) fL Immature Gran % (Auto) 0.4 (0.0-0.4) % Neut % (Auto) 69.7 (45-73) % Lymph % (Auto) 19.5 L (20-40) % [place] % (Auto) 8.4 (2-11) % Eos % (Auto) 1.4 (0-4) % Baso % (Auto) 0.6 (0-2) % Lymph # (Auto) 1.8 (1.2-4.9) X10*3/uL [place] # (Auto) 0.8 (0.1-1.2) X10*3/uL Eos # (Auto) 0.1 (0.0-0.4) X10*3/uL Baso # (Auto) 0.1 (0.0-0.2) X10*3/uL Abs Immat Gran (auto) 0.04 H (0.00-0.03) X10*3/uL Absolute Neuts (auto) 6.3 (2.0-8.3) x10*3/uL Absolute Nucleated RBC 0.000 (0.0-0.012) X10*3/uL Nucleated RBC % (auto) 0.0 (0.0-0.2) /100WBC Sodium 141 (135-145) mmol/L Potassium 4.0 (3.3-5.1) mmol/L Chloride 103 (96-108) mmol/L Carbon Dioxide 26 (22-29) mmol/L Anion Gap 16 (12-20) BUN 16 (9-16) mg/dL Creatinine 0.77 (0.5-1.4) mg/dL Estim Creat Clear Calc 52.7 Estimated GFR > 60 POC Glucose (60-115) mg/dL Random Glucose 115 (60-115) mg/dL Calcium 9.2 (8.4-10.2) mg/dL Magnesium 1.5 L (1.6-2.6) mg/dL Total Bilirubin 0.5 (0.0-1.0) mg/dL Direct Bilirubin 0.2 (0.0-0.5) mg/dL AST 21 (5-31) U/L ALT 17 (0-31) U/L Alkaline Phosphatase 72 (39-117) U/L B-Natriuretic Peptide 60 (<100) pg/mL Total Protein 6.8 (6.5-8.0) g/dL Albumin 3.9 (3.5-5.0) g/dL Lipase 16 (8-78) U/L 09/25/22 09/25/22 Range/Units 15:33 17:52 WBC (4.8-10.8) X10*3/uL RBC (4.20-5.50) X10*6/uL Hgb (12.0-16.0) g/dl Hct (37.0-47.0) % MCV (80.0-98.0) fL MCH (27.0-33.0) pg MCHC (31.0-35.0) g/dl RDW (11.0-16.0) % Plt Count (160-400) X10*3/uL MPV (9.4-12.3) fL Immature Gran % (Auto) (0.0-0.4) % Neut % (Auto) (45-73) % Lymph % (Auto) (20-40) % [place] % (Auto) (2-11) % Eos % (Auto) (0-4) % Baso % (Auto) (0-2) % Lymph # (Auto) (1.2-4.9) X10*3/uL [place] # (Auto) (0.1-1.2) X10*3/uL Eos # (Auto) (0.0-0.4) X10*3/uL Baso # (Auto) (0.0-0.2) X10*3/uL Abs Immat Gran (auto) (0.00-0.03) X10*3/uL Absolute Neuts (auto) (2.0-8.3) x10*3/uL Absolute Nucleated RBC (0.0-0.012) X10*3/uL Nucleated RBC % (auto) (0.0-0.2) /100WBC Sodium (135-145) mmol/L Potassium (3.3-5.1) mmol/L Chloride (96-108) mmol/L Carbon Dioxide (22-29) mmol/L Anion Gap (12-20) BUN (9-16) mg/dL Creatinine (0.5-1.4) mg/dL Estim Creat Clear Calc Estimated GFR POC Glucose 104 188 H (60-115) mg/dL Random Glucose (60-115) mg/dL Calcium (8.4-10.2) mg/dL Magnesium (1.6-2.6) mg/dL Total Bilirubin (0.0-1.0) mg/dL Direct Bilirubin (0.0-0.5) mg/dL AST (5-31) U/L ALT (0-31) U/L Alkaline Phosphatase (39-117) U/L B-Natriuretic Peptide (<100) pg/mL Total Protein (6.5-8.0) g/dL Albumin (3.5-5.0) g/dL Lipase (8-78) U/L Independent Interpretation I performed an independent interpretation of an: EKG Interpretation: EKG sinus rhythm is media with ventricular rate of 92 beats per minute, DC interval 140, QTC 502, incomplete right bundle branch block, which is seen on previous EKG from October 04, 2021. Very similar appearance to this EKG. Radiology Impression Discussion of test interpretation with radiology: I have reviewed the radiologist's reading. Radiologist Impression: EXAMINATION: XR CHEST CLINICAL INFORMATION: Shortness of breath COMPARISON: 08/31/2021 TECHNIQUE: Frontal view of the chest was obtained. FINDINGS: Lungs are well expanded. No acute pulmonary abnormality. No evidence of pulmonary edema, focal consolidation or pleural effusion. The chronic smooth contour change of the medial left diaphragm appears to correspond to a fat-containing Bochdalek hernia. Cardiac silhouette is normal in size. There is atherosclerotic calcification of the aorta. Skeletal findings include chronic severe osteoarthritis of glenohumeral joints. XR/XR chest 1V IMPRESSION: No evidence of pneumonia. No acute pulmonary disease. ? Dictated By: Dorian Ramirez MD External Record Review External record reviewed: Inpatient record, Office record, Outpatient record, Prior outpatient labs, Prior outpatient radiology, Primary care record and Outside ED record Discharge Plan Discharge Clinical Impression: COPD exacerbation Patient Disposition: Still a Patient Instructions: COPD (Chronic Obstructive Pulmonary Disease) (ED) Additional Instructions: Please continue all at-home medications as prescribed. Use nebulizers as directed. If any new or worsening symptoms occur, including but not limited to chest pain, worsening shortness of breath, or any other worsening symptoms please return for re-evaluation. Please follow-up with your primary care physician and sand sifter. Prescriptions: New prednisone 20 mg tablet 40 mg PO DAILY Qty: 10 0RF No Action (DME) blood-glucose meter [FreeStyle Lite Meter] Kit See Rx Instructions .ROUTE .MEDSUPPLY Qty: 1 0RF Rx Instructions: Check blood sugar once a day as directed tizanidine 4 mg tablet 4 mg PO Q8H PRN (Reason: muscle spasticity) Qty: 90 0RF Rx Instructions: Take one tab 3 times a day as needed for muscle spasms, back pain. montelukast 10 mg tablet 10 mg PO BEDTIME Qty: 90 3RF losartan 50 mg tablet 50 mg PO DAILY Qty: 90 1RF fluticasone propionate 50 mcg/actuation spray,suspension 1 spray intranasal BID 90 Days Qty: 3 1RF Rx Instructions: administer into each nostril allopurinol 100 mg tablet 100 mg PO DAILY Qty: 90 1RF albuterol sulfate 2.5 mg /3 mL (0.083 %) solution for nebulization 2.5 mg inhalation Q6H PRN (Reason: shortness of breath or wheezing) Qty: 180 2RF Serevent Diskus 50 mcg/dose blister with device 1 inh inhalation BID Qty: 120 3RF epinephrine [EpiPen] 0.3 mg/0.3 mL auto-injector 0.3 mg IM ONCE PRN (Reason: anaphylaxis) Qty: 1 0RF Rx Instructions: do not exceed 12 doses per 24 hrs albuterol sulfate 90 mcg/actuation HFA aerosol inhaler 2 puff inhalation Q4-6H PRN (Reason: for wheezing) Qty: 1 0RF pantoprazole 40 mg tablet,delayed release (DR/EC) 40 mg PO DAILY Qty: 90 1RF rosuvastatin 20 mg tablet 20 mg PO BEDTIME Qty: 90 1RF alprazolam 0.25 mg tablet 0.25 mg PO DAILY PRN (Reason: anxiety) Qty: 90 0RF sitagliptin phos-metformin 50-500 mg tablet 1 tab PO BID 90 Days Qty: 180 1RF duloxetine 30 mg capsule,delayed release(DR/EC) 30 mg PO BID 90 Days Qty: 180 0RF metoprolol succinate 50 mg tablet extended release 24 hr 75 mg PO DAILY Protocol: Hold for SBP/HR < HOLD for SBP < : 90 HOLD for HR < : 60 levofloxacin 500 mg tablet 500 mg PO DAILY Qty: 7 0RF Pulmicort Flexhaler 180 mcg/actuation aerosol powdr breath activated 1 inh inhalation BID 90 Days Qty: 3 3RF
[2022-09-25 14:41] LABS: Influenza A PCR NEGATIVE (Negative); Influenza B PCR NEGATIVE (Negative); Resp Syncy Virus RNA Qual PCR NEGATIVE (Negative); SARS COV2 PCR INHOUSE NEGATIVE (Negative)
[2022-09-25 14:43] VITALS: BP 145/86; PULSE 105; RESP 20; O2SAT 95
[2022-09-25] MEDS: 0.9 % Sodium Chloride 1,000 ML 999 ML IV (14:49)
[2022-09-25] MEDS: methylPREDNISolone Sod Succ 125 MG/2 ML VIAL IVPUSH (14:49)
[2022-09-25 14:52] LABS: B Type Natriuretic Peptide 60 pg/mL (<100)
--- NOTE | 2022-09-25 14:53 | PC.NURSE ---
Alert and oriented, stats feeling better after updraft. ekg obtained. IV meds given and fluids running as ordered.
[2022-09-25] MEDS: Acetaminophen 325 MG TABLET 975 MG PO (15:00)
--- NOTE | 2022-09-25 15:03 | PC.NURSE ---
Medicated with tylenol for complaints of a headache.
[2022-09-25 15:37] LABS: Glucose, Whole Blood 104 mg/dL (60-115)
[2022-09-25] MEDS: Albuterol Sulfate (0.083%) 2.5 MG/3 ML VIAL.NEB 10 MG INHALE (16:34)
--- NOTE | 2022-09-25 16:54 | PC.NURSE ---
Updraft given patient reports feeling like she is breathing much better than upon admission
--- NOTE | 2022-09-25 17:53 | PC.NURSE ---
poc 188
[2022-09-25 17:57] LABS: Glucose, Whole Blood 188 mg/dL (60-115)
[2022-09-25 18:02] VITALS: BP 147/49; PULSE 112; RESP 18; O2SAT 92
--- NOTE | 2022-09-25 18:09 | PC.NURSE ---
Alert and oriented. VSS. Resting comfortably in bed with son at bedside.
== END 2022-09-25 18:51 | disposition still patient (30) ==
PROVIDERS: Physician Assistant Medical; Emergency Provider Emergency Medicine; PCP Internal Medicine
DX: J44.1 Chronic obstructive pulmonary disease with (acute) exacerbation (principal); R06.02 Shortness of breath; I48.0 Paroxysmal atrial fibrillation; E11.9 Type 2 diabetes mellitus without complications; R05.9 Cough, unspecified; Z20.822 Contact with and (suspected) exposure to COVID-19; Z20.828 Contact with and (suspected) exposure to other viral communicable diseases; Z79.01 Long term (current) use of anticoagulants; Z87.891 Personal history of nicotine dependence; Z79.899 Other long term (current) drug therapy
CPT/HCPCS: 0241U; 36415; 71045; 80048; 80076; 82947; 83690; 83735; 83880; 85025; 93005; 94640; 96361; 96374; 99284; 99285; J2930

== ENCOUNTER → 2022-09-30 09:18 | Outpatient (BNVA) | payer MEDICARE, MEDICAID, SELFPAY | PROVIDERS: PCP Internal Medicine; Visit Provider Internal Medicine | DX: J44.1 Chronic obstructive pulmonary disease with (acute) exacerbation (principal); J20.9 Acute bronchitis, unspecified | CPT/HCPCS: 99212 ==

== ENCOUNTER → 2022-10-07 13:14 | Outpatient (BNVA) | payer MEDICARE, MEDICAID, SELFPAY | PROVIDERS: PCP Internal Medicine; Visit Provider Internal Medicine | DX: J44.1 Chronic obstructive pulmonary disease with (acute) exacerbation (principal); J20.9 Acute bronchitis, unspecified; J30.9 Allergic rhinitis, unspecified | CPT/HCPCS: 99212 ==

== ENCOUNTER → 2022-10-27 10:24 | Outpatient (BNVA) | payer MEDICARE, MEDICAID, SELFPAY | PROVIDERS: PCP Internal Medicine; Visit Provider Internal Medicine | DX: J44.1 Chronic obstructive pulmonary disease with (acute) exacerbation (principal); J30.9 Allergic rhinitis, unspecified; Z87.891 Personal history of nicotine dependence; Z79.899 Other long term (current) drug therapy | CPT/HCPCS: 99212 ==

== ENCOUNTER 2022-10-29 15:08 | Emergency (ER) | payer MEDICARE, MEDICAID, SELFPAY ==
[2022-10-29 15:15] VITALS: BP 123/87; BP 148/90; PULSE 98; PULSE 99; RESP 22; TEMP 37.3; O2SAT 94; O2SAT 98; BMI 32.6
--- NOTE | 2022-10-29 15:21 | PC.NURSE ---
Pt fell down 15 stairs at home today, denying LOC, not on blood thinners. Pt has hx of broken back from fall years ago. PT reporting she lost her balance on stairs. Reporting L sided pain at this time, c-collared by EMS
--- NOTE | 2022-10-29 16:51 | ED.FALL ---
HPI - Fall General Chief Complaint: Fall Stated Complaint: fell down 10 stairs on back, per ems Time Seen by Provider: 10/29/22 16:17 Source: patient Mode of arrival: EMS Limitations: no limitations History of Present Illness HPI Narrative: Patient comes to the emergency room complaining via ambulance after falling down the stairs to the sellar. Patient states that she missed a step and then she slipped down down the stairs, approximately 10-15 stairs. Patient complaining of back pain. Patient denies using any blood thinners. Related Data Home Medications Medication Instructions Recorded Confirmed metoprolol succinate 50 mg 75 mg PO DAILY 04/09/22 10/27/22 tablet,extended release 24 hr magnesium 200 mg tablet 400 mg PO BID 10/27/22 10/27/22 Previous Rx's Medication Instructions Recorded blood-glucose meter (FreeStyle #1 ea 04/09/20 Lite Meter kit) budesonide 180 mcg/actuation 1 inh inhalation BID 90 days #3 ea 12/30/20 breath activated powder inhaler (Pulmicort Flexhaler) tizanidine 4 mg tablet 4 mg PO Q8H PRN muscle spasticity 05/06/21 #90 tabs montelukast 10 mg tablet 10 mg PO BEDTIME #90 tabs 02/08/22 albuterol sulfate 2.5 mg/3 mL 2.5 mg (3 mL) inhalation Q6H PRN 03/31/22 (0.083 %) solution for nebulization shortness of breath or wheezing #180 mL Serevent Diskus 50 mcg/dose powder 1 inh inhalation BID #120 ea 04/05/22 for inhalation (salmeterol) epinephrine 0.3 mg/0.3 mL 0.3 mg (0.3 mL) IM ONCE PRN 05/20/22 injection, auto-injector (EpiPen) anaphylaxis #1 ea pantoprazole 40 mg tablet,delayed 40 mg PO DAILY #90 ea 07/07/22 release rosuvastatin 20 mg tablet 20 mg PO BEDTIME #90 tabs 07/07/22 sitagliptin phosphate 50 1 tab PO BID 90 days #180 tabs 07/29/22 mg-metformin 500 mg tablet duloxetine 30 mg capsule,delayed 30 mg PO BID 90 days #180 caps 08/11/22 release alprazolam 0.25 mg tablet 0.25 mg PO DAILY PRN anxiety #90 09/29/22 tabs allopurinol 100 mg tablet 100 mg PO DAILY #90 tabs 10/01/22 losartan 50 mg tablet 50 mg PO DAILY #90 tabs 10/01/22 Ventolin HFA 90 mcg/actuation 2 puff inhalation Q4-6H PRN for 10/08/22 aerosol inhaler (albuterol sulfate) wheezing #18 grams fluticasone propionate 50 1 spray intranasal BID 3 months 10/08/22 mcg/actuation nasal #48 grams spray,suspension ipratropium 0.5 mg-albuterol 3 mg 3 ml inhalation Q6H PRN wheezing 10/08/22 (2.5 mg base)/3 mL nebulization 15 days #180 mL soln acetaminophen 300 mg-codeine 15 mg 1 tab PO BID PRN pain #10 tabs 10/29/22 tablet Allergies Allergy/AdvReac Type Severity Reaction Status Date / Time Penicillins [PENICILLINS] Allergy Intermediate rash Verified 10/27/22 11:12 meperidine [Demerol] Allergy Unknown Nausea and Verified 10/27/22 11:12 Vomiting oxycodone Allergy Unknown Nausea and Verified 10/27/22 11:12 Vomiting Sulfa (Sulfonamide Allergy Unknown NAUSEA & Verified 10/27/22 11:12 Antibiotics) VOMITING, [SULFA (SULFONAMIDE GI upset ANTIBIOTICS)] warfarin [WARFARIN] AdvReac Severe UNKNOWN Verified 10/27/22 11:12 aspirin [ASPIRIN] AdvReac Mild gi bleed Verified 10/27/22 11:12 enoxaparin [From LOVENOX] AdvReac Unknown INTERNAL Verified 10/27/22 11:12 BLEEDING heparin [HEPARIN] AdvReac Unknown INTERNAL Verified 10/27/22 11:12 BLEEDING ibuprofen AdvReac Unknown GI bleed Verified 10/27/22 11:12 Chocolate AdvReac Diarrhea Verified 10/27/22 11:12 Review of Systems Review of Systems: Constitutional : No Weight loss, No Fever, No Chills, No Night Sweats, No Fatigue, No Malaise ENT/Mouth : No Hearing loss, No Ear Pain, No Nasal Congestion, No Sinus Pain, No Hoarseness, No sore throat, No Rhinorrhea, No Swallowing Difficulty Eyes: No Eye Pain, No Swelling, No Redness, No Foreign Body, No Discharge, No Vision Changes Cardiovascular : No Chest Pain, No SOB, No Dyspnea on Exertion, No Orthopnea, No Edema, No Palpitations Respiratory : No Cough, No Sputum, No Wheezing, No Smoke Exposure, No Dyspnea Gastrointestinal : No Nausea, No Vomiting, No Diarrhea, No Constipation, No abdominal Pain, No Hematochezia, No Melena Genitourinary : no irregular bleeding, No Dysuria, No Urinary Frequency, No Hematuria, No Urinary Incontinence, No Urgency, No Flank Pain, No Urinary Flow Changes, No Hesitancy Musculoskeletal : Complaining of back pain ?all over? 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) Anxiety disorder Compression fracture of body of thoracic vertebra COPD (chronic obstructive pulmonary disease) COVID-19 Deep vein thrombosis (DVT) of left lower extremity Diverticulitis GERD (gastroesophageal reflux disease) Gout History of compression fracture of spine Hyperlipidemia Hypertension Multiple lipomas Nodular lesion on surface of skin Osteoporosis Paroxysmal atrial fibrillation Seasonal allergies Type 2 diabetes mellitus without complication, without long-term current use of insulin Surgical History H/O local excision of skin lesion Family History Family History Mother Mental health disorder Sister CVA (cerebral vascular accident) Daughter Brain tumor Diabetes Bipolar 1 disorder Heart abnormality Mental illness in member of household Mental health disorder Father Substance use disorder Son Mental health disorder Social History Social History Household Members: Family Housing: House Do you presently have visiting nurse or other home services: No Alcohol intake: former Patient Tobacco Use Status: Former Tobacco user Years Smoked: 10 yrs e-Cigarette/Vaping Use: Never Used Second Hand Smoke Exposure: No Advance Directives: Yes Advance Directives on File: Yes Advance Directives Date on File: 07/27/21 service: No Current occupational status: retired Cognitive needs: No Hearing needs: No Vision needs: Yes Physical Exam Vital Signs: Vital Signs: Last Vital Signs Temp 99.0 F 10/29/22 20:00 Pulse 99 10/29/22 20:00 Resp 18 10/29/22 20:00 BP 133/77 10/29/22 20:00 Pulse Ox 98 10/29/22 20:00 O2 Del Method Room Air 10/29/22 20:00 BMI result Body Mass Index 32.6 Const: Other: Appearance: Alert. Oriented X3. No acute distress. Eyes: Pupils equal, round and reactive to light. ENT: Pharynx normal. Neck: On C-spine collar, no palpable step-offs, no C-spine tenderness CVS: Normal heart rate and rhythm. Pulses normal. Normal S1 and S2 Respiratory: No respiratory distress. Breath sounds normal. No Wheezing. No rales Abdomen: Soft and nontender. No rigidity. No distention. Musculoskeletal: Pain to palpation over the left ribs anteriorly back: Pain to palpation over thoracic spine, bilateral paraspinal muscles Skin: Skin warm and dry. Normal skin color. Normal skin turgor. Extremities: No lower extremity edema. No Lacerations. No Rash Neuro: Oriented X 3. No motor deficit. No sensory deficit. Moving all extremities. No slurred speech. CN 2 through 12 grossly intact Psych: calm, cooperative very anxious Course Course Course Narrative: -all of patient's labs are pending -of the patient's imaging pending. Medications Administered Discontinued Medications Generic Name Dose Route Start Last Admin Trade Name Douglasq PRN Reason Stop Dose Admin Acetaminophen 975 mg 10/29/22 16:49 10/29/22 18:23 Acetaminophen 325 Mg Tablet PO 10/29/22 16:50 975 mg ONCE ONE Administration Acetaminophen/Codeine Phosphate 1 tab 10/29/22 20:54 10/29/22 21:21 Acetaminophen With Codeine # 3 Tablet PO 10/29/22 20:55 1 tab ONCE ONE Administration Iohexol 100 ml 10/29/22 18:08 10/29/22 18:08 Iohexol 350 Mg/Ml 100 Ml Infus..Btl IV 10/29/22 18:09 100 ml ONCE ONE Administration Medical Decision Making Medical Decision Making [facility] Narrative: - my interpretation of CT scan of the head: No intracranial bleed. - I discussed with the patient that she has no new abnormalities on her scans of the chest, abdomen pelvis. Patient does have a chronic compression fracture of T11. Patient states that she is aware of this. - patient initially complaining of severe pain, admission was considered. - Patient was able to ambulate after taking Tylenol No. 3 - I also offered to the patient case management and physical therapy evaluation for tomorrow. Patient declined. Patient states that she feels well to go home. Patient's daughter at bedside, both agree that patient may go safely home. Differential Diagnosis Differential Diagnoses: The differential diagnosis associated with the presentation includes ( Intracranial bleed, cervical spine fracture, thoracic fracture, compression fracture, hip fracture) Admission/Observation Consideration of admission/observation: Escalation of care including admission/observation considered Lab Data [facility] Lab Attestation statement: I reviewed the patient's lab results. 10/29/22 18:31 10/29/22 18:31 Labs: Lab Results 10/29/22 10/29/22 Range/Units 18:31 18:31 WBC 14.4 H (4.8-10.8) X10*3/uL RBC 4.17 L (4.20-5.50) X10*6/uL Hgb 11.7 L (12.0-16.0) g/dl Hct 36.0 L (37.0-47.0) % MCV 86.3 (80.0-98.0) fL MCH 28.1 (27.0-33.0) pg MCHC 32.5 (31.0-35.0) g/dl RDW 16.0 (11.0-16.0) % Plt Count 317 (160-400) X10*3/uL MPV 10.3 (9.4-12.3) fL Immature Gran % (Auto) 1.1 H (0.0-0.4) % Neut % (Auto) 76.4 H (45-73) % Lymph % (Auto) 15.3 L (20-40) % Stephens % (Auto) 6.2 (2-11) % Eos % (Auto) 0.7 (0-4) % Baso % (Auto) 0.3 (0-2) % Lymph # (Auto) 2.2 (1.2-4.9) X10*3/uL Stephens # (Auto) 0.9 (0.1-1.2) X10*3/uL Eos # (Auto) 0.1 (0.0-0.4) X10*3/uL Baso # (Auto) 0.1 (0.0-0.2) X10*3/uL Abs Immat Gran (auto) 0.16 H (0.00-0.03) X10*3/uL Absolute Neuts (auto) 11.0 H (2.0-8.3) x10*3/uL Absolute Nucleated RBC 0.000 (0.0-0.012) X10*3/uL Nucleated RBC % (auto) 0.0 (0.0-0.2) /100WBC Sodium 141 (135-145) mmol/L Potassium 3.7 (3.3-5.1) mmol/L Chloride 103 (96-108) mmol/L Carbon Dioxide 25 (22-29) mmol/L Anion Gap 17 (12-20) BUN 17 H (9-16) mg/dL Creatinine 0.77 (0.5-1.4) mg/dL Estim Creat Clear Calc 52.1 Estimated GFR > 60 Random Glucose 141 H (60-115) mg/dL Calcium 9.9 D (8.4-10.2) mg/dL Radiology Impression Discussion of test interpretation with radiology: I have reviewed the radiologist's reading. Radiologist Impression: Head: There is no evidence of acute intracranial hemorrhage or edematous territorial infarction. No abnormal mass effect or midline shift is seen. Park to white matter differentiation is well preserved. No extra-axial fluid collections are identified. The ventricles are normal in size. Patchy deep white matter hypodensities suggesting chronic microangiopathic changes. There is soft tissue swelling and scalp hematoma, in the superior skull. No acute calvarial fracture seen. Right maxillary sinus small fluid/thickening. Right ethmoid sinus mucosal thickening. Remainder of the paranasal sinuses and mastoid air cells are well-aerated. ? Cervical Spine: The atlantooccipital and atlantoaxial articulations remain well aligned. Anatomic alignment of the vertebral bodies and posterior elements. No evidence of acute fracture or subluxation. The vertebral bodies and posterior elements are normal. The disc spaces are preserved. Central canal is grossly maintained..? No prevertebral soft tissue swelling. No suspicious thyroid findings.. FINDINGS: LUNGS: The lungs are clear with no evidence of inflammation or nodules. ? MEDIASTINUM: There is no mediastinal lymphadenopathy or hematoma. Aorta is mildly ectatic measured 4 cm. Visualized pulmonary arteries are unremarkable. Coronary artery calcifications present. No pericardial effusion.? PLEURA: There is no pleural effusion. No pleural mass or thickening.? AXILLA: No lymphadenopathy by size criteria.? LIVER, GALLBLADDER, AND BILIARY TREE: The liver appears unremarkable in size, shape, and attenuation. No focal hepatic lesion or biliary ductal dilatation is appreciated. Unremarkable appearance of the gallbladder. PANCREAS: Unremarkable? SPLEEN: Unremarkable? ADRENAL GLANDS: Unremarkable? KIDNEYS AND URETERS: There are numerous exophytic cysts seen bilaterally without solid lesions, nephrolithiasis, hydronephrosis.? BLADDER: Unremarkable? GASTROINTESTINAL TRACT: There is small hiatal hernia. There are changes of diverticulosis but no diverticulitis. Appendix is small.? ABDOMINAL WALL: No significant hernia is appreciated.? LYMPH NODES: No evidence of adenopathy by size criteria. VASCULAR: There are atherosclerotic calcifications of abdominal aorta is main tributaries without occlusion or aneurysmal dilatation. PELVIC VISCERA: Uterus is surgically absent OSSEOUS STRUCTURES: There is chronic fractures seen on chest radiograph of T11 vertebral body with mild retropulsion. 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 No evidence of acute fractures in the ribs or spine Prescription Management I considered prescription management with: Pain Medication ( I considered sending the patient home with tramadol or oxycodone, patient declined) Chronic Conditions Patient?s care impacted by: Diabetes, Hypertension and Other ( COPD, atrial fibrillation, hypertension, diabetes type 2) Discharge Plan Discharge Clinical Impression: Fall, Compression fx, thoracic spine Patient Disposition: Home, Self-Care Instructions: Vertebral Compression Fracture (ED) Additional Instructions: Please follow-up with your primary care physician tomorrow. If you have any worsening or new symptoms, please return to the emergency room or call 911 Prescriptions: New acetaminophen-codeine 300-15 mg tablet 1 tab PO BID PRN (Reason: pain) Qty: 10 0RF No Action (DME) blood-glucose meter [FreeStyle Lite Meter] Kit See Rx Instructions .ROUTE .MEDSUPPLY Qty: 1 0RF Rx Instructions: Check blood sugar once a day as directed tizanidine 4 mg tablet 4 mg PO Q8H PRN (Reason: muscle spasticity) Qty: 90 0RF Rx Instructions: Take one tab 3 times a day as needed for muscle spasms, back pain. montelukast 10 mg tablet 10 mg PO BEDTIME Qty: 90 3RF albuterol sulfate 2.5 mg /3 mL (0.083 %) solution for nebulization 2.5 mg inhalation Q6H PRN (Reason: shortness of breath or wheezing) Qty: 180 2RF Serevent Diskus 50 mcg/dose blister with device 1 inh inhalation BID Qty: 120 3RF epinephrine [EpiPen] 0.3 mg/0.3 mL auto-injector 0.3 mg IM ONCE PRN (Reason: anaphylaxis) Qty: 1 0RF Rx Instructions: do not exceed 12 doses per 24 hrs pantoprazole 40 mg tablet,delayed release (DR/EC) 40 mg PO DAILY Qty: 90 1RF rosuvastatin 20 mg tablet 20 mg PO BEDTIME Qty: 90 1RF sitagliptin phos-metformin 50-500 mg tablet 1 tab PO BID 90 Days Qty: 180 1RF duloxetine 30 mg capsule,delayed release(DR/EC) 30 mg PO BID 90 Days Qty: 180 0RF alprazolam 0.25 mg tablet 0.25 mg PO DAILY PRN (Reason: anxiety) Qty: 90 0RF losartan 50 mg tablet 50 mg PO DAILY Qty: 90 1RF allopurinol 100 mg tablet 100 mg PO DAILY Qty: 90 1RF albuterol sulfate [Ventolin HFA] 90 mcg/actuation HFA aerosol inhaler 2 puff inhalation Q4-6H PRN (Reason: for wheezing) Qty: 18 0RF ipratropium-albuterol 0.5 mg-3 mg(2.5 mg base)/3 mL solution for nebulization 3 ml inhalation Q6H PRN (Reason: wheezing) 15 Days Qty: 180 2RF fluticasone propionate 50 mcg/actuation spray,suspension 1 spray intranasal BID 90 Days Qty: 48 1RF Rx Instructions: administer into each nostril metoprolol succinate 50 mg tablet extended release 24 hr 75 mg PO DAILY Protocol: Hold for SBP/HR < HOLD for SBP < : 90 HOLD for HR < : 60 Pulmicort Flexhaler 180 mcg/actuation aerosol powdr breath activated 1 inh inhalation BID 90 Days Qty: 3 3RF magnesium 200 mg tablet 400 mg PO BID
[2022-10-29 19:00] LABS: Anion Gap 17 (12-20); Blood Urea Nitrogen 17 mg/dL (9-16); Calcium 9.9 mg/dL (8.4-10.2); Carbon Dioxide 25 mmol/L (22-29); Chloride 103 mmol/L (96-108); Creatinine Clr Calc Pharmacy 52.1; Estimated Glomerular Filt Rate > 60; Glucose Random 141 mg/dL (60-115); Potassium 3.7 mmol/L (3.3-5.1); Sodium 141 mmol/L (135-145)
[2022-10-29 20:00] VITALS: BP 133/77; PULSE 99; RESP 18; TEMP 37.2; O2SAT 98
--- NOTE | 2022-10-29 22:29 | PC.NURSE ---
ambulated well, desires to go home. family at bedside. no distress. ecchymosis to left shoulder/neck. uses cane at home but did well with one assist. tolerating Po well.
== END 2022-10-29 22:50 | disposition home or self-care (01) ==
PROVIDERS: Emergency Provider Emergency Medicine
DX: S22.089A Unspecified fracture of T11-T12 vertebra, initial encounter for closed fracture (principal); R51.9 Headache, unspecified; M54.2 Cervicalgia; R10.2 Pelvic and perineal pain; W10.9XXA Fall (on) (from) unspecified stairs and steps, initial encounter; Y93.9 Activity, unspecified; Y92.9 Unspecified place or not applicable; Y99.9 Unspecified external cause status; Z79.899 Other long term (current) drug therapy; Z87.891 Personal history of nicotine dependence
CPT/HCPCS: 36415; 70450; 71260; 72125; 74177; 80048; 85025; 99284; Q9967

== ENCOUNTER 2022-11-30 12:56 | Outpatient (REF) | payer MEDICARE, MEDICAID, SELFPAY ==
--- NOTE | ~2022-11-30 | MM_ITS ---
EXAMINATION: MM SCREENING DIGITAL BREAST TOMOSYNTHESIS, BILATERAL CLINICAL INFORMATION: Screening. Asymptomatic. The lifetime risk of breast cancer based on the Tyrer-Cuzick Model is 1.3%. COMPARISON: Mammography: 09/15/2021, 03/04/2020, 03/13/2018, and dating back to 2013. TECHNIQUE: Digital breast tomosynthesis is performed in both the craniocaudal and mediolateral oblique views along with computer-aided detection (CAD). Synthesized 2D images are generated from the tomosynthesis. FINDINGS: The breasts are almost entirely fatty (ACR BI-RADS breast composition Category a). There are bilateral vascular calcifications which are benign. There are no suspicious masses, suspicious grouped calcifications, or areas of architectural distortion. The parenchymal pattern is stable from prior exams. MM/MM tomosynthesis screening BI IMPRESSION: No mammographic evidence of malignancy. ASSESSMENT: BI-RADS BI-RADS 2 - Benign Findings RECOMMENDATION: Routine annual mammography screening. 1 year F/U This examination should not preclude the clinical evaluation of a suspicious palpable abnormality. This patient's information was entered into a reminder system with a target due date for their next mammogram.
== END 2022-11-30 12:57 | disposition home or self-care (01) ==
LOC: HO.MAMMO 12:56
PROVIDERS: PCP Internal Medicine; Visit Provider Internal Medicine
DX: Z12.31 Encounter for screening mammogram for malignant neoplasm of breast (principal)
CPT/HCPCS: 77063; 77067

== ENCOUNTER → 2022-11-30 13:00 | Outpatient (BNV) | payer MEDICARE, MEDICAID, SELFPAY | PROVIDERS: PCP Internal Medicine; Visit Provider Radiology Diagnostic Radiology | DX: Z12.31 Encounter for screening mammogram for malignant neoplasm of breast (principal) | CPT/HCPCS: 77063; 77067 ==

== ENCOUNTER 2022-12-30 13:25 | Outpatient (AMB) | payer MEDICARE, MEDICAID, SELFPAY ==
[2022-12-30 13:29] VITALS: BP 142/94; PULSE 110; O2SAT 98; BMI 32.5
--- NOTE | 2022-12-30 13:29 | MHC.OFFVIS ---
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: No Accompanied by: Self / Same As Patient Allergies Penicillins [PENICILLINS] Allergy (Intermediate, Verified 12/30/22 13:45) rash meperidine [Demerol] Allergy (Unknown, Verified 12/30/22 13:45) Nausea and Vomiting oxycodone Allergy (Unknown, Verified 12/30/22 13:45) Nausea and Vomiting Sulfa (Sulfonamide Antibiotics) [SULFA (SULFONAMIDE ANTIBIOTICS)] Allergy (Unknown, Verified 12/30/22 13:45) NAUSEA & VOMITING, GI upset warfarin [WARFARIN] Adverse Reaction (Severe, Verified 12/30/22 13:45) UNKNOWN aspirin [ASPIRIN] Adverse Reaction (Mild, Verified 12/30/22 13:45) gi bleed enoxaparin [From LOVENOX] Adverse Reaction (Unknown, Verified 12/30/22 13:45) INTERNAL BLEEDING heparin [HEPARIN] Adverse Reaction (Unknown, Verified 12/30/22 13:45) INTERNAL BLEEDING ibuprofen Adverse Reaction (Unknown, Verified 12/30/22 13:45) GI bleed Chocolate Adverse Reaction (Verified 12/30/22 13:45) Diarrhea Medication List - Last Reconciled 12/30/22 by Taryn Meade MD acetaminophen-codeine 300-15 mg 1 tab PO BID PRN albuterol sulfate 2.5 mg (3 mL) inhalation Q6H PRN allopurinol 100 mg PO DAILY alprazolam 0.25 mg PO DAILY PRN blood-glucose meter (FreeStyle Lite Meter kit) Check blood sugar once a day as directed budesonide 180 mcg/actuation (Pulmicort Flexhaler) 1 inh inhalation BID 90 days duloxetine 30 mg PO BID 90 days epinephrine (EpiPen) 0.3 mg (0.3 mL) IM ONCE PRN fluticasone propionate 50 mcg/actuation 1 spray intranasal BID 3 months ipratropium-albuterol 0.5 mg-3 mg(2.5 mg base)/3 mL 3 mL inhalation Q6H PRN 30 days losartan 50 mg PO DAILY magnesium 400 mg PO BID metoprolol succinate ER 75 mg See Protocol PO DAILY montelukast 10 mg PO BEDTIME pantoprazole 40 mg PO DAILY rosuvastatin 20 mg PO BEDTIME Serevent Diskus (salmeterol) 1 inh inhalation BID NS sitagliptin phos-metformin 50-500 mg 1 tab PO BID 90 days tizanidine 4 mg PO Q8H PRN Ventolin HFA 90 mcg/actuation (albuterol sulfate) 2 puffs inhalation Q4-6H PRN NS Do you need a note to return to daycare/school/sports/work: No HPI copd HPI Details Joyce is the 82 years old very pleasant female, Comes for visit after 6 months. She is very sad because recently her grandson the at home all of a sudden. Breathing martinez has been stable except form intermittent cough with feeling of mucus. Also has nasal congestion with postnasal drip off and on. She continues to use her meds regularly, say is that she needs refills. Luckily she has not had any acute exacerbation lately. 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) GERD (gastroesophageal reflux disease) Deep vein thrombosis (DVT) of left lower extremity Gout Seasonal allergies Anxiety disorder Type 2 diabetes mellitus without complication, without long-term current use of insulin Hyperlipidemia Hypertension Surgical History H/O local excision of skin lesion Family History Mother Mental health disorder Sister CVA (cerebral vascular accident) Daughter Brain tumor Diabetes Bipolar 1 disorder Heart abnormality Mental illness in member of household Mental health disorder Father Substance use disorder Son Mental health disorder Social History Household Members: Family Housing: House Do you presently have visiting nurse or other home services: No Alcohol intake: former Patient Tobacco Use Status: Former Tobacco user Years Smoked: 10 yrs e-Cigarette/Vaping Use: Never Used Second Hand Smoke Exposure: No Advance Directives Date on File: 07/27/21 service: No Current occupational status: retired Cognitive needs: No Hearing needs: No Vision needs: Yes Review of Systems Const All systems reviewed & are unremarkable except as noted in HPI and below Eyes Reports no additional complaints ENT Reports nasal congestion and Reports nasal discharge Card Denies chest pain, Denies irregular heart rhythm and Denies leg edema Resp Reports as per HPI GI Reports no additional complaints Reports no additional complaints Musc Reports back pain (Chronic) Skin/Breast Reports system reviewed and no additional complaints, except as documented Neuro Reports no additional complaints Psych Reports depression (Controlled) Physical Exam Vital Signs: Last Vital Signs Pulse 110 H 12/30/22 13:29 BP 142/94 H 12/30/22 13:29 Pulse Ox 98 12/30/22 13:29 BMI result Body Mass Index 32.5 Const General: comfortable (BUT SOMEWHAT WEAK), no acute distress, alert and awake Orientation/consciousness: patient oriented x3 HEENT Head: Yes normal to inspection General nose exam: No nasal polyps present, No nasal discharge present and Other nasal findings present (Chronic nasal congestion , mild ) Face and sinus: Yes sinuses nontender Mouth: oropharynx normal Throat: Yes posterior oropharynx normal Eyes General: appearance normal, both eyes and all related structures Neck Neck: Yes normal visual inspection, Yes no lymphadenopathy, Yes trachea midline and Yes no JVD Thyroid: Thyroid normal Chest Chest palpation & inspection: normal inspection of the chest, normal palpation of entire chest wall and no tenderness Resp Other: Breath sounds are distant on both sides with prolonged expiratory phase. On auscultation there are no wheezes or rhonchi this time. Cardio Palpation: normal PMI Rate: regular rate Rhythm: regular rhythm Heart sounds: no gallops and no murmurs GI Palpation (GI): Soft to palpation, nontender, No hepatosplenomegaly present and no masses Auscultation: normal bowel sounds Back/Spine/Pelvis Thoracic/Lumbar Spine: thoracic and lumbar spine normal to inspection and thoraco-lumbar ROM limited Skin General skin exam: no rashes or lesions noted Neuro General: patient oriented x3 and no focal motor deficits Cranial nerves: Yes CN's II-XII intact bilaterally Extrem General: Yes normal to inspection, Yes no clubbing, cyanosis or edema and Yes no calf tenderness Psych Appearance: grossly normal and well kempt Speech and movement: Normal speech and movement present Assessment & Plan Assessment & Plan (1) COPD (chronic obstructive pulmonary disease): Comment: MILD TO MODERATE CHRONIC OBSTRUCTIVE PULMONARY DISEASE. STABLE AND CONTROLLED WITH THE CURRENT MEDS. TX: CONTINUE THE FOLLOWING REGIMEN: Serevent one inh BID Pulmicort 180 one inh BID Albuterol in Nebulizer q 6 hrs only PRN / ALTERNATIVELY MAY USE ALBUTEROL HFA Q 6 HOURS P.R.N. WHEN OUTDOORS, May take Mucinex 400-600 mg bid,to ease expectoration . Code(s): J44.9 - Chronic obstructive pulmonary disease, unspecified (2) Allergic rhinitis: Comment: Chronic , controlled with meds . Flonase 2 spray each nostril daily Azelastin nasal spray one spray in each nostril bid singulair 10 mg po daily . Loratdine 10 mg po once a day PRN . Code(s): J30.9 - Allergic rhinitis, unspecified Medications: Changed From montelukast 10 mg PO BEDTIME 90 tabs 3RF To montelukast 10 mg PO BEDTIME 90 days 90 tabs 3RF allergic Rhinitis From Serevent Diskus (salmeterol) 1 inh inhalation BID 120 ea 3RF NS To Serevent Diskus (salmeterol) 1 inh inhalation BID 30 days 120 ea 5RF ASTHMA/COPD NS From albuterol sulfate 2.5 mg (3 mL) inhalation Q6H PRN 180 mL 2RF shortness of breath or wheezing J44.9 - Chronic obstructive pulmonary disease, unspecified To albuterol sulfate 2.5 mg (3 mL) inhalation Q6H 30 days PRN 180 mL 5RF shortness of breath or wheezing J44.9 - Chronic obstructive pulmonary disease, unspecified Coding Level of Care Code Est Pt Level 3 (74022) Diagnoses COPD (chronic obstructive pulmonary disease) J44.9 Allergic rhinitis J30.9
== END 2022-12-30 13:47 | disposition home or self-care (01) ==
PROVIDERS: PCP Internal Medicine; Visit Provider Internal Medicine
DX: J44.9 Chronic obstructive pulmonary disease, unspecified (principal); J30.9 Allergic rhinitis, unspecified
CPT/HCPCS: 99213

== ENCOUNTER → 2022-12-30 13:25 | Outpatient (BNVA) | payer MEDICARE, MEDICAID, SELFPAY | PROVIDERS: PCP Internal Medicine; Visit Provider Internal Medicine | DX: J44.9 Chronic obstructive pulmonary disease, unspecified (principal); J30.9 Allergic rhinitis, unspecified | CPT/HCPCS: 99212 ==

== ENCOUNTER 2023-01-17 09:47 | Outpatient (REF) | payer MEDICARE, MEDICAID, SELFPAY ==
[2023-01-17 13:04] LABS: MANUAL DIFF FLAG NO
[2023-01-17 13:16] LABS: Basophils Absolute Auto 0.1 X10*3/uL (0.0-0.2); Basophils Percent Auto 0.5 % (0-2); Eosinophils Absolute Auto 0.3 X10*3/uL (0.0-0.4); Eosinophils Percent Auto 2.5 % (0-4); Hematocrit 37.7 % (37.0-47.0); Hemoglobin 11.7 g/dl (12.0-16.0); Imm Gran Abs Auto 0.02 X10*3/uL (0.00-0.03); Imm Gran Pct Auto 0.2 % (0.0-0.4); Lymphocytes Absolute Auto 4.4 X10*3/uL (1.2-4.9); Lymphocytes Percent Auto 43.7 % (20-40); Mean Corpuscular Hemoglobin 27.4 pg (27.0-33.0); Mean Corpuscular Volume 88.3 fL (80.0-98.0); Mean Platelet Volume 11.2 fL (9.4-12.3); Monocytes Percent Auto 10.1 % (2-11); Neutrophils Absolute Auto 4.4 x10*3/uL (2.0-8.3); Platelet Count 309 X10*3/uL (160-400); Red Blood Count 4.27 X10*6/uL (4.20-5.50); Red Cell Distribution Width 15.9 % (11.0-16.0); White Blood Count 10.1 X10*3/uL (4.8-10.8)
[2023-01-17 13:23] LABS: Estimated Average Glucose 143 mg/dL; Hemoglobin A1c % 6.6 % (<6.0)
[2023-01-17 13:46] LABS: Alanine Aminotransferase 13 U/L (0-31); Anion Gap 15 (12-20); Aspartate Amino Transferase 18 U/L (5-31); Blood Urea Nitrogen 21 mg/dL (9-16); Calcium 9.9 mg/dL (8.4-10.2); Carbon Dioxide 25 mmol/L (22-29); Chloride 105 mmol/L (96-108); Cholesterol 187 mg/dL (<200); Estimated Glomerular Filt Rate > 60; Glucose Fasting 146 mg/dL (60-99); HDL Cholesterol 46 mg/dL (>40); Iron 61 mcg/dL (30-160); LDL Cholesterol Calculated 100 mg/dL (<100); Percent Iron Saturation 18 % (15-50); Potassium 3.7 mmol/L (3.3-5.1); Sodium 141 mmol/L (135-145); Total Iron Binding Capacity 332 mcg/dL (228-428); Triglycerides 205 mg/dL (<150); Unsaturated Iron Binding 271 ug/dL; Uric Acid 4.4 mg/dL (2.4-5.7)
[2023-01-17 13:48] LABS: Vitamin D 25-OH Total 94.5 ng/mL (>30)
[2023-01-17 13:57] LABS: Creatinine Urine 214.37 mg/dL; Microalbum/Creatinine Ratio Ur 118.9 ug/mg cr (<30)
== END 2023-01-17 09:48 | disposition home or self-care (01) ==
LOC: HO.HMGCLDS 09:47
PROVIDERS: PCP Internal Medicine; Visit Provider Internal Medicine
DX: M81.0 Age-related osteoporosis without current pathological fracture (principal); E11.9 Type 2 diabetes mellitus without complications; E78.00 Pure hypercholesterolemia, unspecified; I10 Essential (primary) hypertension; M10.9 Gout, unspecified; D50.9 Iron deficiency anemia, unspecified; Z87.81 Personal history of (healed) traumatic fracture
CPT/HCPCS: 36415; 80048; 80061; 82043; 82306; 82570; 83036; 83540; 84450; 84460; 84550; 85025

== ENCOUNTER 2023-01-20 14:54 | Outpatient (AMB) | payer MEDICARE, MEDICAID, SELFPAY ==
[2023-01-20 15:32] VITALS: BP 120/90; PULSE 85; O2SAT 99; BMI 31.6
--- NOTE | 2023-01-20 15:32 | A.OFFPC_ITS ---
Vital Signs 01/20/23 15:32 Height 5 ft Weight 162 lb BMI 31.6 BP 120/90 H Blood Pressure Location Rt brachial Position Sitting Pulse 85 Pulse Source Pulse Oximeter Pulse Oximetry (%) 99 Oxygen Delivery Method Room Air Intake Visit Reasons: Followup labs, meds Intake Note: patient is here today for her f/u Flat Folder: Present Accompanied by: Daughter (evelina) Allergies Penicillins [PENICILLINS] Allergy (Intermediate, Verified 01/20/23 15:51) rash meperidine [Demerol] Allergy (Unknown, Verified 01/20/23 15:51) Nausea and Vomiting oxycodone Allergy (Unknown, Verified 01/20/23 15:51) Nausea and Vomiting Sulfa (Sulfonamide Antibiotics) [SULFA (SULFONAMIDE ANTIBIOTICS)] Allergy (Unkno wn, Verified 01/20/23 15:51) NAUSEA & VOMITING, GI upset warfarin [WARFARIN] Adverse Reaction (Severe, Verified 01/20/23 15:51) UNKNOWN aspirin [ASPIRIN] Adverse Reaction (Mild, Verified 01/20/23 15:51) gi bleed enoxaparin [From LOVENOX] Adverse Reaction (Unknown, Verified 01/20/23 15:51) INTERNAL BLEEDING heparin [HEPARIN] Adverse Reaction (Unknown, Verified 01/20/23 15:51) INTERNAL BLEEDING ibuprofen Adverse Reaction (Unknown, Verified 01/20/23 15:51) GI bleed Chocolate Adverse Reaction (Verified 01/20/23 15:51) Diarrhea Medication List - Last Reconciled 01/20/23 by Melissa Shannon MD acetaminophen-codeine 300-15 mg 1 tab PO BID PRN albuterol sulfate 2.5 mg (3 mL) inhalation Q6H PRN 30 days allopurinol 100 mg PO DAILY alprazolam 0.25 mg PO DAILY PRN blood-glucose meter (FreeStyle Lite Meter kit) Check blood sugar once a day as directed budesonide 180 mcg/actuation (Pulmicort Flexhaler) 1 inh inhalation BID 90 days duloxetine 30 mg PO BID 90 days epinephrine (EpiPen) 0.3 mg (0.3 mL) IM ONCE PRN fluticasone propionate 50 mcg/actuation 1 spray intranasal BID 3 months ipratropium-albuterol 0.5 mg-3 mg(2.5 mg base)/3 mL 3 mL inhalation Q6H PRN 30 days losartan 50 mg PO DAILY magnesium 400 mg PO BID metoprolol succinate ER 75 mg See Protocol PO DAILY montelukast 10 mg PO BEDTIME 90 days pantoprazole 40 mg PO DAILY rosuvastatin 20 mg PO BEDTIME Serevent Diskus (salmeterol) 1 inh inhalation BID 30 days NS sitagliptin phos-metformin 50-500 mg 1 tab PO BID 90 days tizanidine 4 mg PO Q8H PRN Ventolin HFA 90 mcg/actuation (albuterol sulfate) 2 puffs inhalation Q4-6H PRN NS Tobacco use date assessed: 01/20/23 Fall risk assessment: 2 + Falls in past year Last assessed Fall Risk: 01/20/23 Dental Screening Dental Screen Date: 01/20/23 Did you have a dental visit in the last 12 months?: No Did you have a dental problem in the last 6 months where you did not have access to dental care?: No Was dental information given to patient?: Yes HPI Followup labs, meds HPI Details 83-year-old lady with 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 Blood pressure stable controlled present treatment. Recent fasting labs showed hemoglobin A1c at 6.6% , fasting lipids are within normal limits. Complains of urinary frequency, urgency and dysuria present since this morning. Has not had any fever, no chills, no nausea reported. States that she has been having leaky bladder for long time now, wears a the adult diaper every day which she frequently changes throughout today.. 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) GERD (gastroesophageal reflux disease) Deep vein thrombosis (DVT) of left lower extremity Gout Seasonal allergies Anxiety disorder Type 2 diabetes mellitus without complication, without long-term current use of insulin Hyperlipidemia Hypertension Surgical History H/O local excision of skin lesion Family History Mother Mental health disorder Sister CVA (cerebral vascular accident) Daughter Brain tumor Diabetes Bipolar 1 disorder Heart abnormality Mental illness in member of household Mental health disorder Father Substance use disorder Son Mental health disorder Social History Household Members: Family Housing: House Do you presently have visiting nurse or other home services: No Alcohol intake: former Patient Tobacco Use Status: Former Tobacco user Years Smoked: 10 yrs e-Cigarette/Vaping Use: Never Used Second Hand Smoke Exposure: No Advance Directives Date on File: 07/27/21 service: No Current occupational status: retired Cognitive needs: No Hearing needs: No Vision needs: Yes Questionnaire PHQ-9 Over the last 2 weeks, how often have you been bothered by any of the following problems? 1. Little interest or pleasure in doing things: not at all 2. Feeling down, depressed, or hopeless: more than half the days 3. Trouble falling or staying asleep, or sleeping too much: more than half the days 4. Feeling tired or having little energy: more than half the days 5. Poor appetite or overeating: several days 6. Feeling bad about yourself - or that you are a failure or have let yourself or your family down: not at all 7. Trouble concentrating on things, such as reading the newspaper or watching television: not at all 8. Moving or speaking so slowly that other people could have noticed. Or the opposite - being so fidgety or restless that you have been moving around a lot more than usual: not at all 9. Thoughts that you would be better off or of hurting yourself in some way: not at all Total score: 7 Depression Screening Interpretation: Negative 24332 - PHQ-9 Billing: Yes Source: Developed by Drs. Dg Louis, Joyce Saez, Gigi Gaytan and colleagues, with an educational bao from [employer]. Thrive Questionnaire Date Thrive assessed: 01/20/23 I am a: Patient What is your living situation today?: I have a steady place to live Within the past 12 months, did the food you bought not last and you didn't have the money to get more?: Never true Within the past 12 months, did you worry whether your food would run out before you got money to buy more?: Never true Do you have trouble paying for medicines?: No Do you have trouble getting transportation to medical appointments?: No Do you have trouble paying your heating and electricity bill?: No Do you have trouble taking care of your child, family member or friend?: No Do you have trouble with day-to-day activities such as bathing, preparing meals, shopping, managing finances, etc.?: No Are you currently unemployed and looking for a job?: No AUDIT C Alcohol Use Questionnaire (AUDIT-C) 1. How often do you have a drink containing alcohol?: Never Total Score: 0 KIRA-7 AMB Questionnaire KIRA-7 Date KIRA - 7 assessed: 01/20/23 Feeling nervous, anxious, or on edge: 0 = Not at all Not being able to stop or control worryin = More than half the days Worrying too much about different things: 0 = Not at all Trouble relaxin = Not at all Being so restless that it is hard to sit still: 0 = Not at all Becoming easily annoyed or irritable: 0 = Not at all Feeling afraid as if something awful might happen: 0 = Not at all Total KIRA-7 score (0-4 normal; 5-9 mild; 10-14 moderate; 15-21 severe): 2 Source: Developed by Drs. Dg Louis, Joyce Saez, Gigi Gaytan and colleagues, with an educational bao from [employer]. KIRA-7 Assessment Billing KIRA-7 Assessment Tool: KIRA-7 Assessment 34433 Review of Systems Const All systems reviewed & are unremarkable except as noted in HPI and below Eyes Reports no additional complaints ENT Reports nasal congestion and Reports nasal discharge Card Denies chest pain, Denies irregular heart rhythm and Denies leg edema Resp Reports as per HPI GI Reports no additional complaints Reports as per HPI Musc Reports back pain (Chronic) Skin/Breast Reports system reviewed and no additional complaints, except as documented Neuro Reports no additional complaints Psych Reports depression (Controlled) Physical exam (Primary Care) Vital Signs: Last Vital Signs Pulse 85 01/20/23 15:32 BP 120/90 H 01/20/23 15:32 Pulse Ox 99 01/20/23 15:32 Oxygen Delivery Method Room Air 01/20/23 15:32 BMI result Body Mass Index 31.6 Tobacco/Smoking Status: Tobacco use Status Tobacco use date assessed 01/20/23 01/20/23 15:36 Patient Tobacco Use Status Former Tobacco user 01/20/23 15:36 e-Cigarette/Vaping Use Never Used 01/20/23 15:36 PHQ-9: PHQ-9 Score PHQ-9: Total score 7 01/21/23 01:14 Depression Screening Interpretation: Negative Thrive Assessment: Date of Thrive Assessment Date Thrive assessed 01/20/23 01/20/23 15:53 Const General: comfortable and no acute distress Orientation/consciousness: patient oriented x3 Limitations: no limitations and ambulation with cane HENMT General nose exam: No nasal discharge present Neck Neck: Yes full ROM, Yes no lymphadenopathy and Yes supple Resp Other: Distant breath sounds Effort & Inspection: normal respiratory effort and able to speak in complete sentences Cardio Other: S1-S2 present regular rate and rhythm GI Palpation (GI): Soft to palpation, nontender and no guarding Auscultation: normal bowel sounds General: Yes no CVA tenderness Back/Spine/Pelvis Back: no CVA tenderness Thoracic/Lumbar Spine: thoracic and lumbar spine normal to inspection and paraspinal muscle tenderness (Slight tenderness on palpation of paraspinal area bilateral) Neuro General: patient oriented x3, gait normal, moves all extremities, Normal light touch and pain sensation, no focal motor deficits and CN's II-XI intact bilaterally Extrem General: Yes full ROM, Yes no pedal edema and Yes no calf tenderness Results AMB Urinalysis, Automated UA Leukoctes 125 Dayana/uL Last Edit by Beny Snow CMA on 01/20/23 16:2 1 UA Nitrite Negative Last Edit by Beny Snow CMA on 01/20/23 16:21 UA Urobilinogen 0.2 mg/dL Last Edit by Beny Snow CMA on 01/20/23 16 :21 UA Protein 30 mg/dL Last Edit by Beny Snwo CMA on 01/20/23 16:21 UA pH 5.5 Last Edit by Beny Snow CMA on 01/20/23 16:21 UA Blood 0 Garett/uL Last Edit by Beny Snow CMA on 01/20/23 16:21 UA Specific Bovill 1.025 Last Edit by Beny Snow CMA on 01/20/23 16:21 UA Ketone Negative Last Edit by Beny Snow CMA on 01/20/23 16:21 UA Bilirubin 1 mg/dL Last Edit by Beny Snow CMA on 01/20/23 16:21 UA Glucose 0 mg/dL Last Edit by Beny Snow CMA on 01/20/23 16:21 Results Reviewed Results Reviewed: Laboratory Last Values Urine pH (Auto) 5.5 01/20/23 16:20 Specific B[place]ill (Auto) 1.025 01/20/23 16:20 Urine Protein (Auto) 30 mg/dL 01/20/23 16:20 Glucose (UA)(Auto) 0 mg/dL 01/20/23 16:20 Urine Ketones (Auto) Negative 01/20/23 16:20 Urine Blood (Auto) 0 Garett/uL 01/20/23 16:20 Urine Nitrite (Auto) Negative 01/20/23 16:20 Urine Bilirubin (Auto) 1 mg/dL 01/20/23 16:20 Urine Urobilinogen (Auto) 0.2 mg/dL 01/20/23 16:20 Leukocyte Esterase (Auto) 125 Dayana/uL 01/20/23 16:20 Name: Joyce Waddell I Age/Sex: 83/F : 1940 Unit#: [id number] Attend Dr: Melissa Shannon MD Re01/17/23 Status: DEP [facility] Disch: SPEC : [id number] CHRISTEL: 01/17/23 STATUS: COMP REQ : [id number] RECD: 01/17/23-[address]: Melissa Shannon MD COMP: 01/17/23 ENTERED: 01/17/[address]: ORDERED: CBC Auto Diff Test Result Flag Reference Site WBC 10.1 4.8-10.8 X10*3/uL RBC 4.27 4.20-5.50 X10*6/uL HGB 11.7 L 12.0-16.0 g/dl HCT 37.7 37.0-47.0 % MCV 88.3 80.0-98.0 fL MCH 27.4 27.0-33.0 pg MCHC 31.0 31.0-35.0 g/dl RDW 15.9 11.0-16.0 % PLT 309 160-400 X10*3/uL MPV 11.2 9.4-12.3 fL Neut Pct Auto 43.0 L 45-73 % ImGran Pct Auto 0.2 0.0-0.4 % Lymp Pct Auto 43.7 H 20-40 % [place] Pct Auto 10.1 2-11 % Eos Pct Auto 2.5 0-4 % Baso Pct Auto 0.5 0-2 % NRBC Pct Auto 0.0 0.0-0.2 /100WBC ANC Neut Abs # 4.4 2.0-8.3 x10*3/uL ImGran Abs Auto 0.02 0.00-0.03 X10*3/uL Lymph Abs Auto 4.4 1.2-4.9 X10*3/uL Socorro Abs Auto 1.0 0.1-1.2 X10*3/uL Eos Abs Auto 0.3 0.0-0.4 X10*3/uL Baso Abs Auto 0.1 0.0-0.2 X10*3/uL NRBC Abs Auto 0.000 0.0-0.012 X10*3/uL NTERED: 01/17/23-[address]: ORDERED: Met Prof Fast, Uric, IRON PROF, AST, ALT, Lipid Panel, Vitamin D 25-OH Test Result Flag Reference Site Sodium 141 135-145 mmol/L Potassium 3.7 3.3-5.1 mmol/L CL 105 96-108 mmol/L CO2 25 22-29 mmol/L Gap 15 12-20 BUN 21 H 9-16 mg/dL Creat 0.75 0.5-1.4 mg/dL EGFR > 60 NOTE: For -[place] individuals, multiply the result by 1.210. Chronic Kidney Disease: Estimated GFR < 60 mL/min/1.73m2 Severe Kidney Disease: Estimated GFR < 15 mL/min/1.73m2 FBS 146 H 60-99 mg/dL A fasting glucose of 126 mg/dl or greater on more than one occasion is considered diagnostic of diabetes. Uric Acid 4.4 2.4-5.7 mg/dL CA 9.9 8.4-10.2 mg/dL Iron 61 30-160 mcg/dL TIBC 332 228-428 mcg/dL Saturation 18 15-50 % UIBC 271 ug/dL AST (GOT) 18 5-31 U/L ALT (GPT) 13 0-31 U/L Triglyceride 205 H <150 mg/dL Desirable Triglyceride: less than 150 mg/dL Borderline High Triglyceride 150-199 mg/dL High Triglyceride: 200-499 mg/dL Very High Triglyceride: greater than or equal to 5OO mg/dL Cholesterol 187 <200 mg/dL Desirable Cholesterol: less than 200 mg/dL Borderline High Cholesterol: 200-239 mg/dL High Cholesterol: greater than 239 mg/dL LDL Calculated 100 H <100 mg/dL Desirable LDL: less than 100 mg/dL Near Optimal/Above Optimal LDL: 110-129 mg/dL Borderline High LDL: 130-159 mg/dL High LDL: 160-189 mg/dL Very High LDL: greater than or equal to 190 mg/dL HDL 46 >40 mg/dL Desirable HDL: greater than 40 mg/dL Note: This HDL assay may give artificially low results in patients with liver disease. Vit D 25-OH Tot 94.5 >30 ng/mL Health Based Reference Values* < 20 ng/mL Deficient 20-30 ng/mL Insufficient > 30 ng/mL Sufficient ENTERED: 01/17/23 RASHAWN MARCIAL: ORDERED: DIANA Test Result Flag Reference Site Creat, Ur 214.37 mg/dL Microalbumin Ur 255.0 mg/L Alb/Creat Ratio 118.9 H <30 ug/mg cr Albumin/Creatinine Ratio Reference Ranges: Normal: < 30 ug/mg creatinine Microalbuminuria: 30 - 300 ug/mg creatinine Clinical Albuminuria: > 300 ug/mg creatinine Laboratory Tests 01/17/23 09:55 Estimat Average Glucose 143 Hemoglobin A1c % 6.6 H Assessment and Plan Assessment & Plan (1) UTI (urinary tract infection): Code(s): N39.0 - Urinary tract infection, site not specified Plan: Prescription sent for nitrofurantoin macro crystals, 100 mg per capsule to take 1 every 12 hours for 7 days. Advised to drink plenty of water. To clinic if no improvement of symptoms noted after 3-4 days on the antibiotic. Urine culture was sent (2) Anemia: Code(s): D64.9 - Anemia, unspecified Qualifiers: Anemia type: iron deficiency Iron deficiency anemia type: unspecified iron deficiency Qualified Code(s): D50.9 - Iron deficiency anemia, unspecified Plan: Repeat CBC with iron profile ordered (3) Type 2 diabetes mellitus without complication, without long-term current use of insulin: Code(s): E11.9 - Type 2 diabetes mellitus without complications Plan: Recent lab results reviewed with patient, with sugar and hemoglobin A1c stable and at goal . continue to check fasting blood sugar at home, maintain log and bring to next appointment for review. Reinforced diabetic diet and regular exercise with patient. Counseled regarding importance of yearly diabetes retinopathy screening. Patient advised to inspect feet daily, for any signs of injury, callus or infection. Compliance with diet and regular exercise again stressed. Blood pressure goal is less than 130/80, goal LDL is less than 100 and goal hemoglobin A1c is less than 7% follow-up appointment made in--6-months, after fasting labs done. (4) Hyperlipidemia: Code(s): E78.5 - Hyperlipidemia, unspecified Qualifiers: Hyperlipidemia type: pure hypercholesterolemia Qualified Code(s): E78.00 - Pure hypercholesterolemia, unspecified Plan: Reviewed recent fasting lipid profile with patient with levels at goal . Continue with rosuvastatin 20 mg daily , in addition to adherence to low- cholesterol diet and regular exercise, at least 30 minutes 3 to 4 times a week. Advised patient to make healthy food choices, eat more fruits, vegetables, w hole grains, wild caught fish and low-fat dairy. Limit amount of meat and fried or fatty food products, as well as processed foods and fast foods. Follow-up scheduled with repeat fasting lipid panel in 6 months. (5) Hypertension: Code(s): I10 - Essential (primary) hypertension Qualifiers: Hypertension type: essential hypertension Qualified Code(s): I10 - Essential (primary) hypertension Plan: Blood pressure at goal of less than 130/80. Continue with current medication. Reinforced importance of following a low sodium diet, getting regular exercise, and lowering stress levels. (6) Anxiety disorder: Code(s): F41.9 - Anxiety disorder, unspecified Qualifiers: Anxiety disorder type: generalized anxiety disorder Qualified Code(s): F41.1 - Generalized anxiety disorder Plan: Takes alprazolam 0.25 mg once a day as needed and duloxetine 30 mg daily (7) Mixed stress and urge urinary incontinence: Code(s): N39.46 - Mixed incontinence Plan: Trial of Mirabegron 25 mg per tablet to take 1 tablet once a day. Orders: Orders AMB Urinalysis Auto Microscop. 01/20/23 R35.0 - Frequency of micturition AMB Urinalysis Automated 01/20/23 Z13.9 - Encounter for screening, unspecified Hemoglobin A1c 06/27/23 E11.9 - Type 2 diabetes mellitus without complications, E78.5 - Hyperlipidemia, unspecified, I10 - Essential (primary) hypertension Lipid Panel 06/27/23 E11.9 - Type 2 diabetes mellitus without complications, E78.5 - Hyperlipidemia, unspecified, I10 - Essential (primary) hypertension Urine Culture 01/20/23 N39.0 - Urinary tract infection, site not specified Alanine Aminotransferase 06/27/23 E11.9 - Type 2 diabetes mellitus without complications, E78.5 - Hyperlipidemia, unspecified, I10 - Essential (primary) hypertension Aspartate Amino Transferase 06/27/23 E11.9 - Type 2 diabetes mellitus without complications, E78.5 - Hyperlipidemia, unspecified, I10 - Essential (primary) hypertension Basic Metabolic Panel Fasting 06/27/23 E11.9 - Type 2 diabetes mellitus without complications, E78.5 - Hyperlipidemia, unspecified, I10 - Essential (primary) hypertension Microalbumin, Random (w Creat) 06/27/23 E11.9 - Type 2 diabetes mellitus without complications, E78.5 - Hyperlipidemia, unspecified, I10 - Essential (primary) hypertension Medications: New cyclobenzaprine 10 mg PO BEDTIME PRN 20 tabs 0RF muscle spasm mirabegron ER 25 mg PO DAILY 30 tabs 1RF N39.46 - Mixed incontinence nitrofurantoin monohyd/m-cryst 100 mg must administer with a meal/food 100 mg PO Q12H 7 days 14 caps 0RF Discontinued tizanidine Take one tab 3 times a day as needed for muscle spasms, back pain. Discontinued Reason: Patient no longer taking 4 mg PO Q8H PRN 90 tabs 0RF muscle spasticity Coding Level of Care Code Est Pt Level 4 (05854) Diagnoses UTI (urinary tract infection) N39.0 Iron deficiency anemia, unspecified iron deficiency anemia type D50.9 Anemia type: iron deficiency Iron deficiency anemia type: unspecified iron deficiency Type 2 diabetes mellitus without complication, without long-term current use of insulin E11.9 Pure hypercholesterolemia E78.00 Hyperlipidemia type: pure hypercholesterolemia Essential hypertension I10 Hypertension type: essential hypertension Generalized anxiety disorder F41.1 Anxiety disorder type: generalized anxiety disorder Mixed stress and urge urinary incontinence N39.46 Additional Codes KIRA-7 Assessment Billing - KIRA-7 Assessment Tool: KIRA-7 Assessment [id number] ([id number])
== END 2023-01-20 16:20 | disposition home or self-care (01) ==
PROVIDERS: PCP Internal Medicine; Visit Provider Internal Medicine
DX: E11.69 Type 2 diabetes mellitus with other specified complication (principal)
CPT/HCPCS: 81003; 99214

== ENCOUNTER 2023-01-20 17:02 | Outpatient (REF) | payer MEDICARE, MEDICAID, SELFPAY | END 2023-01-20 17:03 | disposition home or self-care (01) | LOC: HO.LAB 17:02 | PROVIDERS: Visit Provider Internal Medicine | DX: Z13.89 Encounter for screening for other disorder (principal) ==

== ENCOUNTER 2023-01-21 11:22 | Outpatient (REF) | payer MEDICARE, MEDICAID, SELFPAY | END 2023-01-21 11:23 | disposition home or self-care (01) | LOC: HO.LNP 11:22 | PROVIDERS: Visit Provider Internal Medicine | DX: N39.0 Urinary tract infection, site not specified (principal) | CPT/HCPCS: 87086 ==

== ENCOUNTER 2023-06-09 09:28 | Outpatient (AMB) | payer MEDICARE, MEDICAID, SELFPAY ==
[2023-06-09 09:55] VITALS: BP 132/80; PULSE 89; O2SAT 97; BMI 32.0
--- NOTE | 2023-06-09 09:55 | A.OFFPC_ITS ---
Vital Signs 06/09/23 09:55 Height 5 ft Weight 164 lb BMI 32.0 BP 132/80 Blood Pressure Location Rt brachial Position Sitting Pulse 89 Pulse Source Pulse Oximeter Pulse Oximetry (%) 97 Oxygen Delivery Method Room Air Intake Visit Reasons: COPD/Headach ok per DR. Shannon Intake Note: Pt is here today c/o H/A and COPD Allergies Penicillins [PENICILLINS] Allergy (Intermediate, Verified 06/09/23 10:15) rash meperidine [Demerol] Allergy (Unknown, Verified 06/09/23 10:15) Nausea and Vomiting oxycodone Allergy (Unknown, Verified 06/09/23 10:15) Nausea and Vomiting Sulfa (Sulfonamide Antibiotics) [SULFA (SULFONAMIDE ANTIBIOTICS)] Allergy (Unknown, Verified 06/09/23 10:15) NAUSEA & VOMITING, GI upset warfarin [WARFARIN] Adverse Reaction (Severe, Verified 06/09/23 10:15) UNKNOWN aspirin [ASPIRIN] Adverse Reaction (Mild, Verified 06/09/23 10:15) gi bleed enoxaparin [From LOVENOX] Adverse Reaction (Unknown, Verified 06/09/23 10:15) INTERNAL BLEEDING heparin [HEPARIN] Adverse Reaction (Unknown, Verified 06/09/23 10:15) INTERNAL BLEEDING ibuprofen Adverse Reaction (Unknown, Verified 06/09/23 10:15) GI bleed Chocolate Adverse Reaction (Verified 06/09/23 10:15) Diarrhea Medication List - Last Reconciled 06/09/23 by Melissa Shannon MD albuterol sulfate 2.5 mg (3 mL) inhalation Q6H PRN 30 days allopurinol 100 mg PO DAILY alprazolam 0.25 mg PO DAILY PRN blood-glucose meter (FreeStyle Lite Meter kit) Check blood sugar once a day as directed cyclobenzaprine 10 mg PO BEDTIME PRN duloxetine 30 mg PO BID 90 days epinephrine (EpiPen) 0.3 mg (0.3 mL) IM ONCE PRN fluticasone propionate 50 mcg/actuation 1 spray intranasal BID 3 months ipratropium-albuterol 0.5 mg-3 mg(2.5 mg base)/3 mL 3 mL inhalation Q6H PRN 30 days losartan 50 mg PO DAILY magnesium 400 mg PO BID metoprolol succinate ER 75 mg See Protocol PO DAILY montelukast 10 mg PO BEDTIME 90 days pantoprazole 40 mg PO DAILY Pulmicort Flexhaler 180 mcg/actuation (budesonide) 2 inhalations inhalation BID NS rosuvastatin 20 mg PO BEDTIME Serevent Diskus (salmeterol) 1 inh inhalation BID 30 days NS sitagliptin phos-metformin 50-500 mg 1 tab PO BID 90 days Ventolin HFA 90 mcg/actuation (albuterol sulfate) 2 puffs inhalation Q4-6H PRN NS Tobacco use date assessed: 06/09/23 Fall risk assessment: 1 Fall in past year Last assessed Fall Risk: 06/09/23 Dental Screening Dental Screen Date: 06/09/23 Did you have a dental visit in the last 12 months?: No Was dental information given to patient?: No HPI COPD/Headach ok per DR. Shannon HPI Details 83-year-old lady here today complaining of cough and wheezing present now for the last 3 days accompanied by headaches. Has been using her nebulizer which she states has stopped working properly. Currently using her albuterol inhaler which she states has not afforded any relief. Denies any accompanying fever, no lightheadedness, no chest pain. 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) GERD (gastroesophageal reflux disease) Deep vein thrombosis (DVT) of left lower extremity Gout Seasonal allergies Anxiety disorder Type 2 diabetes mellitus without complication, without long-term current use of insulin Hyperlipidemia Hypertension Surgical History H/O local excision of skin lesion Family History Mother Mental health disorder Sister CVA (cerebral vascular accident) Daughter Brain tumor Diabetes Bipolar 1 disorder Heart abnormality Mental illness in member of household Mental health disorder Father Substance use disorder Son Mental health disorder Social History Household Members: Family Housing: House Do you presently have visiting nurse or other home services: No Alcohol intake: former Patient Tobacco Use Status: Former Tobacco user Years Smoked: 10 yrs e-Cigarette/Vaping Use: Never Used Second Hand Smoke Exposure: No Advance Directives Date on File: 07/27/21 service: No Current occupational status: retired Cognitive needs: No Hearing needs: No Vision needs: Yes Questionnaire Thrive Questionnaire Date Thrive assessed: 01/20/23 KIRA-7 AMB Questionnaire KIRA-7 Date KIRA - 7 assessed: 01/20/23 Source: Developed by Drs. Dg Louis, Joyce Saez, Gigi Gaytan and colleagues, with an educational bao from [employer]. Review of Systems Const Reports as per HPI, Denies chills and Denies fever(s) ENT Reports no additional complaints Card Reports no additional complaints Resp Reports as per HPI GI Reports no additional complaints Physical exam (Primary Care) Vital Signs: Last Vital Signs Pulse 89 06/09/23 09:55 BP 132/80 06/09/23 09:55 Pulse Ox 97 06/09/23 09:55 Oxygen Delivery Method Room Air 06/09/23 09:55 BMI result Body Mass Index 32.0 Tobacco/Smoking Status: Tobacco use Status Tobacco use date assessed 06/09/23 06/09/23 10:10 Patient Tobacco Use Status Former Tobacco user 06/09/23 09:55 e-Cigarette/Vaping Use Never Used 06/09/23 09:55 Thrive Assessment: Date of Thrive Assessment Date Thrive assessed 01/20/23 06/09/23 09:55 Const Other: Alert oriented x3, no acute cardiorespiratory distress noted, accompanied by kika hutton Nutritional Appearance: obese [facility] Head: Yes normocephalic General nose exam: Normal external nose present and No nasal discharge present Face and sinus: Yes sinuses nontender and Yes face symmetric Mouth: Normal oral and palatal mucosa present, oropharynx normal and moist mucous membranes Neck Neck: Yes full ROM, Yes no lymphadenopathy and Yes supple Resp Effort & Inspection: normal respiratory effort and able to speak in complete sentences Auscultation: wheezes scattered wheezes Cardio Other: S1-S2 present regular rate and rhythm Office Procedures Nebulizer Treatment Nebulizer Treatment [id number]/MDI RX initial, or Nebulizer Subsequent Treatment Office Meds ipratropium 0.5 mg-albuterol 3 mg (2.5 mg base)/3 mL nebulization wade Performing Provider: Melissa Shannon MD Performing Location: [facility] [place] [facility] Administered by: Raegan Mazariegos CMA on 06/09/23 12:30 Dose Route Admin Location Dispensed Lot Number Expiration Date NDC [employer] Driver 3 mL inhalation inhalation 3 mL [id number] 02/23/24 8623-9320-01 [facility] Assessment and Plan Assessment & Plan (1) Acute exacerbation of chronic obstructive pulmonary disease (COPD): Code(s): J44.1 - Chronic obstructive pulmonary disease with (acute) exacerbation Plan: DuoNeb administered via nebulizer. Prescription sent for a new nebulizer machine. Prescription also sent for levofloxacin 500 mg per tablet to take once a day for the next 7 days. It always with food . Return to clinic if no improvement of symptoms Orders: Orders AMB Nebulizer Treatment Today J44.9 - Chronic obstructive pulmonary disease, unspecified Medications: New nebulizers As directed 1 ea 0RF J44.9 - Chronic obstructive pulmonary disease, unspecified levofloxacin 500 mg PO Q24H 7 tabs 0RF Coding Level of Care Code Est Pt Level 3 (35912) Diagnoses Acute exacerbation of chronic obstructive pulmonary disease (COPD) J44.1 CPT Codes Nebulizer Treatment - Nebulizer Treatment, initial or subsequent: 52192- Nebulizer/MDI RX initial, or Nebulizer Subsequent Treatment ([id number])
== END 2023-06-09 12:00 | disposition home or self-care (01) ==
LOC: HO.HMGC 09:28
PROVIDERS: PCP Internal Medicine; Visit Provider Internal Medicine
DX: J44.1 Chronic obstructive pulmonary disease with (acute) exacerbation (principal)
CPT/HCPCS: 94640; 99213; J7620

== ENCOUNTER 2023-06-23 08:03 | Outpatient (AMB) | payer MEDICARE, MEDICAID, SELFPAY ==
--- NOTE | 2023-06-23 08:07 | AM.OFFWIN_ITS ---
Intake Vital Signs 06/23/23 08:13 Height 5 ft Weight 164 lb BMI 32.0 BP 136/80 Blood Pressure Location Rt brachial Position Sitting Pulse 74 Pulse Source Pulse Oximeter Pulse Oximetry (%) 99 Oxygen Delivery Method Room Air Intake Visit Reasons: EP 2 weeks~Diverticulitis Intake Note: pt is here for c.o diverticulitis, in a lot of pain on left side only Patient Tobacco Use Status: Former Tobacco user Allergies Penicillins [PENICILLINS] Allergy (Intermediate, Verified 06/23/23 08:14) rash meperidine [Demerol] Allergy (Unknown, Verified 06/23/23 08:14) Nausea and Vomiting oxycodone Allergy (Unknown, Verified 06/23/23 08:14) Nausea and Vomiting Sulfa (Sulfonamide Antibiotics) [SULFA (SULFONAMIDE ANTIBIOTICS)] Allergy (Unknown, Verified 06/23/23 08:14) NAUSEA & VOMITING, GI upset warfarin [WARFARIN] Adverse Reaction (Severe, Verified 06/23/23 08:14) UNKNOWN aspirin [ASPIRIN] Adverse Reaction (Mild, Verified 06/23/23 08:14) gi bleed enoxaparin [From LOVENOX] Adverse Reaction (Unknown, Verified 06/23/23 08:14) INTERNAL BLEEDING heparin [HEPARIN] Adverse Reaction (Unknown, Verified 06/23/23 08:14) INTERNAL BLEEDING ibuprofen Adverse Reaction (Unknown, Verified 06/23/23 08:14) GI bleed Chocolate Adverse Reaction (Verified 06/23/23 08:14) Diarrhea Do you need a note to return to daycare/school/sports/work: No HPI HPI Comments History of Present Illness Details 83 y/o female patient who presents to [facility] in clinic with c/o left lower abdominal pain associated with constipation. This is a chronic issue that has been going on for years. 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) GERD (gastroesophageal reflux disease) Deep vein thrombosis (DVT) of left lower extremity Gout Seasonal allergies Anxiety disorder Type 2 diabetes mellitus without complication, without long-term current use of insulin Hyperlipidemia Hypertension Surgical History H/O local excision of skin lesion Family History Mother Mental health disorder Sister CVA (cerebral vascular accident) Daughter Brain tumor Diabetes Bipolar 1 disorder Heart abnormality Mental illness in member of household Mental health disorder Father Substance use disorder Son Mental health disorder Social History Household Members: Family Housing: House Do you presently have visiting nurse or other home services: No Alcohol intake: former Patient Tobacco Use Status: Former Tobacco user Years Smoked: 10 yrs e-Cigarette/Vaping Use: Never Used Second Hand Smoke Exposure: No Advance Directives Date on File: 07/27/21 service: No Current occupational status: retired Cognitive needs: No Hearing needs: No Vision needs: Yes Review of Systems Const All systems reviewed & are unremarkable except as noted in HPI and below Physical Exam Vital Signs: Last Vital Signs Pulse 74 06/23/23 08:13 BP 136/80 06/23/23 08:13 Pulse Ox 99 06/23/23 08:13 Oxygen Delivery Method Room Air 06/23/23 08:13 BMI result Body Mass Index 32.0 Const General: no acute distress; No comfortable Orientation/consciousness: patient oriented x3 GI Inspection: Yes normal to inspection, No distended and Yes Abdominal panniculus present Palpation (GI): Soft to palpation, Tenderness to palpation present (GI) in the LLQ and suprapubicly, No hepatosplenomegaly present and no masses Auscultation: normal bowel sounds Rectal Exam - Female: deferred Neuro General: patient oriented x3 Assessment & Plan Assessment & Plan (1) Constipation: Code(s): K59.00 - Constipation, unspecified Qualifiers: Constipation type: slow transit constipation Qualified Code(s): K59.01 - Slow transit constipation Plan: - F/U with GI - F/U with PCP - Increase Fiber intake. Medications: New sennosides (Senokot) 17.2 mg (2 x 8.6 mg) PO BEDTIME 30 tabs 0RF K59.01 - Slow transit constipation bisacodyl (Dulcolax (bisacodyl)) 5 mg PO DAILY 20 tabs 0RF K59.01 - Slow transit constipation Coding Level of Care Code Est Pt Level 3 (52302) Diagnoses Slow transit constipation K59.01 Constipation type: slow transit constipation Time Spent (min) 15
[2023-06-23 08:13] VITALS: BP 136/80; PULSE 74; O2SAT 99; BMI 32.0
== END 2023-06-23 08:56 | disposition home or self-care (01) ==
PROVIDERS: PCP Internal Medicine; Visit Provider Nurse Practitioner Family
DX: K59.01 Slow transit constipation (principal)
CPT/HCPCS: 99213

== ENCOUNTER 2023-06-27 00:20 | Emergency (ER) | payer MEDICARE, MEDICAID, SELFPAY ==
--- NOTE | ~2023-06-27 | CT_ITS ---
EXAMINATION: CT ABDOMEN AND PELVIS WITHOUT CONTRAST CLINICAL INFORMATION: Left lower quadrant tenderness, history of diverticulitis COMPARISON: 10/29/2022 TECHNIQUE: Multidetector volumetric imaging was performed from the superior aspect of the liver through the pubic symphysis. Sagittal and coronal reformatted images were obtained on the technologist's workstation. This CT examination was performed using dose optimization techniques as appropriate, variously including the following: *Automated exposure control *Adjustment of mA and/or kV according to patient size (this includes techniques or standardized protocols for targeted exams where dose is matched to indication/reason for exam; i.e. extremities or head) *Use of iterative reconstruction technique DLP: 781 mGy-cm FINDINGS: LUNG BASES: The visualized lung bases are unremarkable. Fat-containing Bochdalek hernia noted on the left. LIVER, GALLBLADDER, AND BILIARY TREE: The liver is normal in size, shape, and attenuation. No focal hepatic lesion or biliary ductal dilatation is identified on this noncontrast exam. Gallbladder appears grossly unremarkable. PANCREAS: Mild fatty atrophy. SPLEEN: Unremarkable. ADRENAL GLANDS: Unremarkable. KIDNEYS AND URETERS: No hydronephrosis or obstructing calculus bilaterally. Numerous bilateral renal cysts are redemonstrated; no follow-up recommended. BLADDER: Minimally distended and grossly unremarkable. GASTROINTESTINAL TRACT: Colonic diverticulosis is noted. The small and large bowel are otherwise unremarkable without evidence of obstruction or pericolonic inflammatory change. No free fluid or free air is seen. ABDOMINAL WALL: No significant hernia is appreciated. LYMPH NODES: Normal. VASCULAR: There is atherosclerotic calcification along the aorta and iliac arteries. PELVIC VISCERA: Patient is status post hysterectomy. OSSEOUS STRUCTURES: Degenerative changes are noted in the spine. Severe compression deformity of T11 appears unchanged from prior. CT/CT abdomen pelvis wo IV con IMPRESSION: No acute findings identified in the abdomen/pelvis. Colonic diverticulosis without diverticulitis.
[2023-06-27 00:36] VITALS: PULSE 91; RESP 18; TEMP 36.7; O2SAT 97; BMI 34.1
--- NOTE | 2023-06-27 01:48 | ED_ITS ---
HPI - Abdominal Pain General Chief Complaint: Abdominal Pain Stated Complaint: diverticulitis Time Seen by Provider: 06/27/23 01:27 Source: patient and family (Daughter) Mode of arrival: ambulatory Limitations: no limitations History of Present Illness HPI narrative: 83-year-old female came in for 2 days of abdominal pain. Left lower quadrant abdominal pain similar to her previous pain when she had diverticulitis patient was seen recently at the [facility] was given medication for constipation, last bowel movement was this morning and was normal with no blood in her, no nausea, no vomiting, no fever, no chills. Had history of hysterectomy, perforated peptic ulcer disease in her 20s. Patient also is complaining of no pain in the left buttock radiating to the left leg, no weakness, no numbness, no urinary incontinence. Related Data Home Medications Medication Instructions Recorded Confirmed metoprolol succinate 50 mg 75 mg PO DAILY 04/09/22 10/27/22 tablet,extended release 24 hr magnesium 200 mg tablet 400 mg PO BID 10/27/22 10/27/22 Previous Rx's Medication Instructions Recorded blood-glucose meter (FreeStyle #1 ea 04/09/20 Lite Meter kit) epinephrine 0.3 mg/0.3 mL 0.3 mg (0.3 mL) IM ONCE PRN 05/20/22 injection, auto-injector (EpiPen) anaphylaxis #1 ea Ventolin HFA 90 mcg/actuation 2 puff inhalation Q4-6H PRN for 10/08/22 aerosol inhaler (albuterol sulfate) wheezing #18 grams ipratropium 0.5 mg-albuterol 3 mg 3 ml inhalation Q6H PRN 11/02/22 (2.5 mg base)/3 mL nebulization wheezing/SOB 30 days #180 mL soln montelukast 10 mg tablet 10 mg PO BEDTIME allergic Rhinitis 12/30/22 90 days #90 tabs cyclobenzaprine 10 mg tablet 10 mg PO BEDTIME PRN muscle spasm 01/20/23 #20 tabs duloxetine 30 mg capsule,delayed 30 mg PO BID 90 days #180 caps 01/24/23 release pantoprazole 40 mg tablet,delayed 40 mg PO DAILY #90 ea 01/24/23 release rosuvastatin 20 mg tablet 20 mg PO BEDTIME #90 tabs 01/24/23 allopurinol 100 mg tablet 100 mg PO DAILY #90 tabs 02/21/23 fluticasone propionate 50 1 spray intranasal BID 3 months 02/21/23 mcg/actuation nasal #48 grams spray,suspension losartan 50 mg tablet 50 mg PO DAILY #90 tabs 02/21/23 sitagliptin phosphate 50 1 tab PO BID 90 days #180 tabs 02/21/23 mg-metformin 500 mg tablet alprazolam 0.25 mg tablet 0.25 mg PO DAILY PRN anxiety #90 03/29/23 tabs Pulmicort Flexhaler 180 2 inh inhalation BID #3 inserts 05/30/23 mcg/actuation breath activated (budesonide) Serevent Diskus 50 mcg/dose powder 1 inh inhalation BID ASTHMA/COPD 05/30/23 for inhalation (salmeterol) 30 days #120 ea nebulizers #1 ea 06/16/23 albuterol sulfate 2.5 mg/3 mL 2.5 mg (3 mL) inhalation Q6H PRN 06/23/23 (0.083 %) solution for nebulization shortness of breath or wheezing 30 days #180 mL bisacodyl 5 mg tablet,delayed 5 mg PO DAILY #20 tabs 06/23/23 release (Dulcolax (bisacodyl)) sennosides 8.6 mg tablet (Senokot) 17.2 mg (2 x 8.6 mg) PO BEDTIME 06/23/23 #30 tabs acetaminophen 300 mg-codeine 15 mg 1 tab PO Q12H PRN pain #7 tabs 06/27/23 tablet cefuroxime axetil 500 mg tablet 500 mg PO BID #14 tabs 06/27/23 Allergies Allergy/AdvReac Type Severity Reaction Status Date / Time Penicillins [PENICILLINS] Allergy Intermediate rash Verified 06/27/23 00:36 meperidine [Demerol] Allergy Unknown Nausea and Verified 06/27/23 00:36 Vomiting oxycodone Allergy Unknown Nausea and Verified 06/27/23 00:36 Vomiting Sulfa (Sulfonamide Allergy Unknown NAUSEA & Verified 06/27/23 00:36 Antibiotics) VOMITING, [SULFA (SULFONAMIDE GI upset ANTIBIOTICS)] warfarin [WARFARIN] AdvReac Severe UNKNOWN Verified 06/27/23 00:36 aspirin [ASPIRIN] AdvReac Mild gi bleed Verified 03/04/24 00:36 enoxaparin [From LOVENOX] AdvReac Unknown INTERNAL Verified 06/27/23 00:36 BLEEDING heparin [HEPARIN] AdvReac Unknown INTERNAL Verified 06/27/23 00:36 BLEEDING ibuprofen AdvReac Unknown GI bleed Verified 06/27/23 00:36 Chocolate AdvReac Diarrhea Verified 06/27/23 00:36 Review of Systems Review of Systems All other systems are reviewed and are negative Constitutional: Reports as per HPI and Reports no additional constitutional complaints Eyes: Reports as per HPI and Reports no additional eye complaints Reports system reviewed and no additional complaints, except as documented Cardiovascular: Reports as per HPI and Reports no additional cardiovascular complaints Respiratory: Reports as per HPI and Reports no additional respiratory complaints Gastrointestinal: Reports as per HPI and Reports no additional gastrointestinal complaints Genitourinary: Reports no additional female genitourinary complaints Musculoskeletal: Reports no additional musculoskeletal complaints Skin/Breast: Reports system reviewed and no additional complaints, except as docu Psychiatric: Reports no additional psychiatric complaints Endocrine: Reports no additional endocrine complaints Hematologic/Lymphatic: Reports no additional hematologic/lymphatic complaints Allergic/Immunologic: Reports no additional allergic/immunologic complaints Reports system reviewed and no additional complaints, except as documented and Reports Abnormal speech present [facility] Past Medical History Medical History Mixed stress and urge urinary incontinence Osteoporosis History of compression fracture of spine Compression fracture of body of thoracic vertebra Paroxysmal atrial fibrillation Anemia COVID-19 Diverticulitis COPD (chronic obstructive pulmonary disease) Allergic rhinitis Multiple lipomas Nodular lesion on surface of skin 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) GERD (gastroesophageal reflux disease) Deep vein thrombosis (DVT) of left lower extremity Gout Seasonal allergies Anxiety disorder Type 2 diabetes mellitus without complication, without long-term current use of insulin Hyperlipidemia Hypertension Surgical History H/O local excision of skin lesion Family History Family History Mother Mental health disorder Sister CVA (cerebral vascular accident) Daughter Brain tumor Diabetes Bipolar 1 disorder Heart abnormality Mental illness in member of household Mental health disorder Father Substance use disorder Son Mental health disorder Social History Social History Household Members: Family Housing: House Do you presently have visiting nurse or other home services: No Alcohol intake: former Patient Tobacco Use Status: Former Tobacco user Years Smoked: 10 yrs Smoked in Last 30 Days: No e-Cigarette/Vaping Use: Never Used Second Hand Smoke Exposure: No Use of substances other than those prescribed or required for medical reasons: No Advance Directives: Yes Advance Directives on File: Yes Advance Directives Date on File: 07/27/21 service: No Current occupational status: retired Cognitive needs: No Hearing needs: No Vision needs: Yes Physical Exam ED Vital Signs: Vital Signs - 24 hr 06/27/23 00:36 06/27/23 04:25 Temperature 98.1 F 98.1 F Pulse Rate 91 89 Respiratory Rate 18 18 Blood Pressure 173/86 H Pulse Oximetry 97 98 Oxygen Delivery Method Room Air Room Air BMI result Body Mass Index 34.1 Vital signs have been reviewed and appear to be correct. Blood pressure elevated. Heart rate normal. Respiratory rate normal. Temperature normal. Oxygen saturation normal. Appearance: Alert. Oriented X3. No acute distress. Head: Normal external exam. Normocephalic. Atraumatic. No Palencia signs noted. No raccoon eyes noted Eyes: PERRLA. EOMI. Conjunctiva and sclera normal. Eyelids normal. ENT: TM's Normal. Pharynx normal. Uvula midline. Moist mucous membranes. No trismus noted. No drooling noted. No muffled voice noted. Neck: Normal inspection. Neck supple. FROM. No adenopathy. Thyroid Normal. No meningeal signs. No neck mass noted. CVS: Normal heart rate and rhythm. Heart sound normal. No murmurs noted. Pulses normal throughout. Respiratory: No respiratory distress. Painless inspiration. Breath sounds normal. No wheezes/rales/rhonchi noted. Chest nontender. No accessory muscle usage noted or decreased air movement noted. Abdomen: Soft , left lower quadrant tenderness, no guarding, no rebound tenderness. Bowel sounds normal in all 4 quadrants. No distention noted. No organomegaly noted. No visible injury noted. Back: No CVA tenderness. Full range of motion noted. Skin: Skin warm and dry. Normal skin color. Normal skin turgor. No rashes/lesions/lacerations noted. Extremities: No lower extremity edema. Extremities exhibit normal range of motion. Extremities nontender. Neuro: Oriented X 3. Cranial nerve exam: II-XII are grossly intact No motor deficit. No sensory deficit. Reflexes normal. Course Reevaluation(s) Reevaluation #1: UA consistent with UTI will start the patient on cefuroxime. CT showed no acute intra-abdominal pathology in particular no acute diverticulitis. Chronic left buttock pain radiates down to the left lower extremity consistent with sciatica patient felt better with Tylenol with codeine will prescribe few pills to manage pain at home. Time: 04:39 Medical Decision Making Differential Diagnosis Differential Diagnoses: The differential diagnosis associated with the presentation includes (Diverticulitis, colitis, pancreatitis, UTI, pyelonephritis, sciatica, electrolyte derangement, severe anemia.) Admission/Observation Consideration of admission/observation: Escalation of care including admission/observation considered Lab Data MDM Lab Attestation statement: I reviewed the patient's lab results. 06/27/23 01:56 06/27/23 01:56 Labs: Lab Results 06/27/23 06/27/23 Range/Units 01:56 04:21 WBC 11.3 H (4.8-10.8) X10*3/uL RBC 3.90 L (4.20-5.50) X10*6/uL Hgb 10.8 L (12.0-16.0) g/dl Hct 32.9 L (37.0-47.0) % MCV 84.4 (80.0-98.0) fL MCH 27.7 (27.0-33.0) pg MCHC 32.8 (31.0-35.0) g/dl RDW 16.3 H (11.0-16.0) % Plt Count 287 (160-400) X10*3/uL MPV 10.2 (9.4-12.3) fL Immature Gran % (Auto) 0.2 (0.0-0.4) % Neut % (Auto) 51.4 (45-73) % Lymph % (Auto) 35.7 (20-40) % Foster % (Auto) 9.7 (2-11) % Eos % (Auto) 2.2 (0-4) % Baso % (Auto) 0.8 (0-2) % Lymph # (Auto) 4.0 (1.2-4.9) X10*3/uL Foster # (Auto) 1.1 (0.1-1.2) X10*3/uL Eos # (Auto) 0.3 (0.0-0.4) X10*3/uL Baso # (Auto) 0.1 (0.0-0.2) X10*3/uL Abs Immat Gran (auto) 0.02 (0.00-0.03) X10*3/uL Absolute Neuts (auto) 5.8 (2.0-8.3) x10*3/uL Absolute Nucleated RBC 0.000 (0.0-0.012) X10*3/uL Nucleated RBC % (auto) 0.0 (0.0-0.2) /100WBC Sodium 140 (135-145) mmol/L Potassium 3.3 (3.3-5.1) mmol/L Chloride 105 (96-108) mmol/L Carbon Dioxide 26 (22-29) mmol/L Anion Gap 12 (12-20) BUN 20 H (9-16) mg/dL Creatinine 0.82 (0.5-1.4) mg/dL Estim Creat Clear Calc 45.1 Estimated GFR > 60 Random Glucose 134 H (60-115) mg/dL Lactic Acid 1.2 (0.5-2.0) mmol/L Calcium 9.3 D (8.4-10.2) mg/dL Total Bilirubin 0.2 (0.0-1.0) mg/dL Direct Bilirubin < 0.2 (0.0-0.5) mg/dL AST 15 (5-31) U/L ALT 10 (0-31) U/L Alkaline Phosphatase 99 (39-117) U/L Total Protein 7.4 (6.5-8.0) g/dL Albumin 3.9 (3.5-5.0) g/dL Lipase 29 (8-78) U/L Urine Color Yellow Urine Appearance Cloudy Urine pH 5.5 (5.0-9.0) Ur Specific [place] 1.025 (1.005-1.025) Urine Protein 30 (1+) H (Neg-Trace) mg/dL Urine Glucose (UA) Negative (Negative) mg/dL Urine Ketones Negative (Negative) mg/dL Urine Blood Negative (Negative) Urine Nitrite Negative (Negative) Ur Leukocyte Esterase Moderate (2+) H (Negative) Urine RBC 0-2 (0-2) /HPF Urine WBC 21-50 H (0-5) /HPF Ur Squamous Epith Cells 11-20 (0-2) /HPF Urine Bacteria 4+ (None Seen) Hyaline Casts 3-5 (0-2) /LPF Independent Interpretation I performed an independent interpretation of an: CT Scan (Abdomen pelvis:No acute findings identified in the abdomen/pelvis. Colonic diverticulosis without diverticulitis. ) Radiology Impression Discussion of test interpretation with radiology: I have reviewed the radiologist's reading. Prescription Management I considered prescription management with: Pain Medication Medications Administered Discontinued Medications Generic Name Dose Route Start Last Admin Trade Name Freq PRN Reason Stop Dose Admin Acetaminophen/Codeine Phosphate 1 tab 06/27/23 01:41 06/27/23 02:07 Acetaminophen With Codeine # 3 Tablet PO 06/27/23 01:42 1 tab ONCE ONE Administration Sodium Chloride 1,000 mls @ 999 mls/hr 06/27/23 01:38 06/27/23 03:30 Ns IV 06/27/23 02:38 Infused .Q1H1M ONE Infusion Discharge Plan Discharge Clinical Impression: Acute UTI, Sciatic leg pain Patient Disposition: Home, Self-Care Instructions: Urinary Tract Infection in Women (ED) Prescriptions: New acetaminophen-codeine 300-15 mg tablet 1 tab PO Q12H PRN (Reason: pain) Qty: 7 0RF cefuroxime axetil 500 mg tablet 500 mg PO BID Qty: 14 0RF No Action (DME) blood-glucose meter [FreeStyle Lite Meter] Kit See Rx Instructions .ROUTE .MEDSUPPLY Qty: 1 0RF Rx Instructions: Check blood sugar once a day as directed epinephrine [EpiPen] 0.3 mg/0.3 mL auto-injector 0.3 mg IM ONCE PRN (Reason: anaphylaxis) Qty: 1 0RF Rx Instructions: do not exceed 12 doses per 24 hrs albuterol sulfate [Ventolin HFA] 90 mcg/actuation HFA aerosol inhaler 2 puff inhalation Q4-6H PRN (Reason: for wheezing) Qty: 18 0RF ipratropium-albuterol 0.5 mg-3 mg(2.5 mg base)/3 mL solution for nebulization 3 ml inhalation Q6H PRN (Reason: wheezing/SOB) 30 Days Qty: 180 2RF duloxetine 30 mg capsule,delayed release(DR/EC) 30 mg PO BID 90 Days Qty: 180 1RF pantoprazole 40 mg tablet,delayed release (DR/EC) 40 mg PO DAILY Qty: 90 1RF rosuvastatin 20 mg tablet 20 mg PO BEDTIME Qty: 90 1RF allopurinol 100 mg tablet 100 mg PO DAILY Qty: 90 1RF fluticasone propionate 50 mcg/actuation spray,suspension 1 spray intranasal BID 90 Days Qty: 48 1RF Rx Instructions: administer into each nostril losartan 50 mg tablet 50 mg PO DAILY Qty: 90 1RF sitagliptin phos-metformin 50-500 mg tablet 1 tab PO BID 90 Days Qty: 180 1RF alprazolam 0.25 mg tablet 0.25 mg PO DAILY PRN (Reason: anxiety) Qty: 90 0RF Pulmicort Flexhaler 180 mcg/actuation aerosol powdr breath activated 2 inh inhalation BID Qty: 3 3RF Serevent Diskus 50 mcg/dose blister with device 1 inh inhalation BID 30 Days Qty: 120 5RF (DME) nebulizers Misc See Rx Instructions .Route Qty: 1 0RF Rx Instructions: As directed albuterol sulfate 2.5 mg /3 mL (0.083 %) solution for nebulization 2.5 mg inhalation Q6H PRN (Reason: shortness of breath or wheezing) 30 Days Qty: 180 5RF metoprolol succinate 50 mg tablet extended release 24 hr 75 mg PO DAILY Protocol: Hold for SBP/HR < HOLD for SBP < : 90 HOLD for HR < : 60 cyclobenzaprine 10 mg tablet 10 mg PO BEDTIME PRN (Reason: muscle spasm) Qty: 20 0RF sennosides [Senokot] 8.6 mg tablet 17.2 mg PO BEDTIME Qty: 30 0RF bisacodyl [Dulcolax (bisacodyl)] 5 mg tablet,delayed release (DR/EC) 5 mg PO DAILY Qty: 20 0RF montelukast 10 mg tablet 10 mg PO BEDTIME 90 Days Qty: 90 3RF magnesium 200 mg tablet 400 mg PO BID
[2023-06-27 02:02] LABS: MANUAL DIFF FLAG NO
[2023-06-27 02:03] LABS: Basophils Absolute Auto 0.1 X10*3/uL (0.0-0.2); Basophils Percent Auto 0.8 % (0-2); Eosinophils Absolute Auto 0.3 X10*3/uL (0.0-0.4); Eosinophils Percent Auto 2.2 % (0-4); Hematocrit 32.9 % (37.0-47.0); Hemoglobin 10.8 g/dl (12.0-16.0); Imm Gran Abs Auto 0.02 X10*3/uL (0.00-0.03); Imm Gran Pct Auto 0.2 % (0.0-0.4); Lymphocytes Percent Auto 35.7 % (20-40); Mean Corpuscular HGB Conc 32.8 g/dl (31.0-35.0); Mean Corpuscular Hemoglobin 27.7 pg (27.0-33.0); Mean Corpuscular Volume 84.4 fL (80.0-98.0); Mean Platelet Volume 10.2 fL (9.4-12.3); Monocytes Absolute Auto 1.1 X10*3/uL (0.1-1.2); Monocytes Percent Auto 9.7 % (2-11); Neutrophils Absolute Auto 5.8 x10*3/uL (2.0-8.3); Neutrophils Percent Auto 51.4 % (45-73); Platelet Count 287 X10*3/uL (160-400); Red Cell Distribution Width 16.3 % (11.0-16.0); White Blood Count 11.3 X10*3/uL (4.8-10.8)
[2023-06-27] MEDS: 0.9 % Sodium Chloride 1,000 ML 999 ML IV (02:08)
[2023-06-27 02:13] LABS: Lactic Acid 1.2 mmol/L (0.5-2.0)
[2023-06-27 02:17] LABS: Alanine Aminotransferase 10 U/L (0-31); Albumin Level 3.9 g/dL (3.5-5.0); Alkaline Phosphatase 99 U/L (39-117); Anion Gap 12 (12-20); Aspartate Amino Transferase 15 U/L (5-31); Bilirubin Direct < 0.2 mg/dL (0.0-0.5); Bilirubin Total 0.2 mg/dL (0.0-1.0); Blood Urea Nitrogen 20 mg/dL (9-16); Calcium 9.3 mg/dL (8.4-10.2); Carbon Dioxide 26 mmol/L (22-29); Chloride 105 mmol/L (96-108); Creatinine Clr Calc Pharmacy 45.1; Estimated Glomerular Filt Rate > 60; Glucose Random 134 mg/dL (60-115); Lipase 29 U/L (8-78); Potassium 3.3 mmol/L (3.3-5.1); Sodium 140 mmol/L (135-145); Total Protein 7.4 g/dL (6.5-8.0)
[2023-06-27 04:25] VITALS: BP 173/86; PULSE 89; RESP 18; TEMP 36.7; O2SAT 98
[2023-06-27 04:27] LABS: Appearance Urine Cloudy; Color Urine Yellow; Glucose Urine UA Negative (Negative); Leukocyte Esterase Urine Moderate (2+) (Negative); Nitrite Urine Negative (Negative); PH 5.5 (5.0-9.0); Specific Gravity - Urine 1.025 (1.005-1.025); UMIC TRIGGER UACC YES; Urine Blood Negative (Negative); Urine Ketones Negative (Negative); Urine Protein 30 (1+) mg/dL (Neg-Trace)
[2023-06-27 04:30] LABS: Bacteria Urine 4+ (None Seen); RBC Urine 0-2 /HPF (0-2); UACC Culture Trigger YES; WBC Urine 21-50 /HPF (0-5)
[2023-06-27] MEDS: cefuroxime axetiL 500 MG TABLET PO (04:51)
== END 2023-06-27 05:08 | disposition home or self-care (01) ==
PROVIDERS: Emergency Provider Emergency Medicine
DX: N39.0 Urinary tract infection, site not specified (principal); M54.32 Sciatica, left side; I10 Essential (primary) hypertension; E11.9 Type 2 diabetes mellitus without complications; Z79.4 Long term (current) use of insulin
CPT/HCPCS: 36415; 74176; 80048; 80076; 81001; 83605; 83690; 85025; 87040; 87086; 87088; 96360; 99284

== ENCOUNTER 2023-07-01 07:35 | Outpatient (REF) | payer MEDICARE, MEDICAID, SELFPAY ==
[2023-07-01 11:50] LABS: Estimated Average Glucose 140 mg/dL; Hemoglobin A1c % 6.5 % (<6.0)
[2023-07-01 12:04] LABS: Alanine Aminotransferase 12 U/L (0-31); Anion Gap 13 (12-20); Aspartate Amino Transferase 17 U/L (5-31); Blood Urea Nitrogen 18 mg/dL (9-16); Calcium 9.2 mg/dL (8.4-10.2); Carbon Dioxide 27 mmol/L (22-29); Chloride 104 mmol/L (96-108); Cholesterol 177 mg/dL (<200); Estimated Glomerular Filt Rate > 60; Glucose Fasting 154 mg/dL (60-99); HDL Cholesterol 48 mg/dL (>40); LDL Cholesterol Calculated 95 mg/dL (<100); Potassium 3.2 mmol/L (3.3-5.1); Sodium 141 mmol/L (135-145); Triglycerides 171 mg/dL (<150)
[2023-07-01 17:44] LABS: Creatinine Urine 20.75 mg/dL; Microalbum/Creatinine Ratio Ur 120.4 ug/mg cr (<30)
== END 2023-07-01 07:36 | disposition home or self-care (01) ==
LOC: HO.HMGCLDS 07:35
PROVIDERS: PCP Internal Medicine; Visit Provider Internal Medicine
DX: E11.9 Type 2 diabetes mellitus without complications (principal); E78.5 Hyperlipidemia, unspecified; I10 Essential (primary) hypertension
CPT/HCPCS: 36415; 80048; 80061; 82043; 82570; 83036; 84450; 84460

== ENCOUNTER 2023-07-04 13:11 | Outpatient (AMB) | payer MEDICARE, MEDICAID, SELFPAY ==
[2023-07-04 13:17] VITALS: BP 126/72; PULSE 91; O2SAT 97; BMI 34.2
--- NOTE | 2023-07-04 13:17 | A.OFFVIS_ITS ---
Intake Vital Signs 07/04/23 13:17 Height 4 ft 10 in Weight 163 lb 7.184 oz BMI 34.2 BP 126/72 Blood Pressure Location Rt brachial Position Sitting Pulse 91 Pulse Source Doppler Pulse Oximetry (%) 97 Oxygen Delivery Method Room Air Intake Visit Reasons: copd Allergies Penicillins [PENICILLINS] Allergy (Intermediate, Verified 07/04/23 13:39) rash meperidine [Demerol] Allergy (Unknown, Verified 07/04/23 13:39) Nausea and Vomiting oxycodone Allergy (Unknown, Verified 07/04/23 13:39) Nausea and Vomiting Sulfa (Sulfonamide Antibiotics) [SULFA (SULFONAMIDE ANTIBIOTICS)] Allergy (Unknown, Verified 07/04/23 13:39) NAUSEA & VOMITING, GI upset warfarin [WARFARIN] Adverse Reaction (Severe, Verified 07/04/23 13:39) UNKNOWN aspirin [ASPIRIN] Adverse Reaction (Mild, Verified 07/04/23 13:39) gi bleed enoxaparin [From LOVENOX] Adverse Reaction (Unknown, Verified 07/04/23 13:39) INTERNAL BLEEDING heparin [HEPARIN] Adverse Reaction (Unknown, Verified 07/04/23 13:39) INTERNAL BLEEDING ibuprofen Adverse Reaction (Unknown, Verified 07/04/23 13:39) GI bleed Chocolate Adverse Reaction (Verified 07/04/23 13:39) Diarrhea Medication List - Last Reconciled 07/04/23 by Taryn Meade MD acetaminophen-codeine 300-15 mg 1 tab PO Q12H PRN acetaminophen-codeine 300-15 mg 1 tab PO Q8H PRN albuterol sulfate 2.5 mg (3 mL) inhalation Q6H PRN 30 days allopurinol 100 mg PO DAILY alprazolam 0.25 mg PO DAILY bisacodyl (Dulcolax (bisacodyl)) 5 mg PO DAILY blood-glucose meter (FreeStyle Lite Meter kit) Check blood sugar once a day as directed cefuroxime axetil 500 mg PO BID cyclobenzaprine 10 mg PO BEDTIME PRN duloxetine 30 mg PO BID 90 days epinephrine (EpiPen) 0.3 mg (0.3 mL) IM ONCE PRN fluticasone propionate 50 mcg/actuation 1 spray intranasal BID 3 months ipratropium-albuterol 0.5 mg-3 mg(2.5 mg base)/3 mL 3 mL inhalation Q6H PRN 30 days losartan 50 mg PO DAILY magnesium 400 mg PO BID metoprolol succinate ER 75 mg See Protocol PO DAILY montelukast 10 mg PO BEDTIME 90 days nebulizers As directed pantoprazole 40 mg PO DAILY Pulmicort Flexhaler 180 mcg/actuation (budesonide) 2 inhalations inhalation BID NS rosuvastatin 20 mg PO BEDTIME sennosides (Senokot) 17.2 mg (2 x 8.6 mg) PO BEDTIME Serevent Diskus (salmeterol) 1 inh inhalation BID 30 days NS sitagliptin phos-metformin 50-500 mg 1 tab PO BID 90 days Ventolin HFA 90 mcg/actuation (albuterol sulfate) 2 puffs inhalation Q4-6H PRN NS Do you need a note to return to daycare/school/sports/work: No HPI copd HPI Details AISHA IS 83 YEARS OLD VERY PLEASANT FEMALE, SHE IS HERE FOR 6 MONTHS FOLLOW-UP FOR HER COPD AND ALLERGIC RHINITIS. BREATHING DOYLE HAS BEEN STABLE. SHE HAS ONLY OCCASIONAL COUGH AND ALSO SHORTNESS OF BREATH ON WALKING AROUND OR CLIMBING STAIRS. HER MAIN COMPLAINT IS I ALWAYS FEEL TIRED SLEEP IS FRAGMENTED, ONLY 3-4 HOURS AT NIGHT AND THEN CAT NAPS DURING THE DAYTIME ALSO CHRONIC LOW BACK PAIN WITH SOME RADIATION TO THE LEFT LOWER EXTREMITY. AT PRESENT SHE HAS ISSUE WITH THE INHALER, SHE GOT THE NOTE IS THAT PULMICORT WOULD NOT BE COVERED BY INSURANCE. THIS ADDS TO HER WORRIES. 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) GERD (gastroesophageal reflux disease) Deep vein thrombosis (DVT) of left lower extremity Gout Seasonal allergies Anxiety disorder Type 2 diabetes mellitus without complication, without long-term current use of insulin Hyperlipidemia Hypertension Surgical History H/O local excision of skin lesion Family History Mother Mental health disorder Sister CVA (cerebral vascular accident) Daughter Brain tumor Diabetes Bipolar 1 disorder Heart abnormality Mental illness in member of household Mental health disorder Father Substance use disorder Son Mental health disorder Social History Household Members: Family Housing: House Do you presently have visiting nurse or other home services: No Alcohol intake: former Patient Tobacco Use Status: Former Tobacco user Years Smoked: 10 yrs e-Cigarette/Vaping Use: Never Used Second Hand Smoke Exposure: No Advance Directives Date on File: 07/27/21 service: No Current occupational status: retired Cognitive needs: No Hearing needs: No Vision needs: Yes Review of Systems Const All systems reviewed & are unremarkable except as noted in HPI and below Eyes Reports no additional complaints ENT Reports nasal congestion and Reports nasal discharge Card Denies chest pain, Denies irregular heart rhythm and Denies leg edema Resp Reports as per HPI GI Reports no additional complaints Reports no additional complaints Musc Reports back pain (Chronic) Skin/Breast Reports system reviewed and no additional complaints, except as documented Neuro Reports no additional complaints Psych Reports depression (Controlled) Physical Exam Vital Signs: Last Vital Signs Pulse 91 07/04/23 13:17 BP 126/72 07/04/23 13:17 Pulse Ox 97 07/04/23 13:17 Oxygen Delivery Method Room Air 07/04/23 13:17 BMI result Body Mass Index 34.2 Const General: comfortable (BUT SOMEWHAT WEAK), no acute distress, alert and awake Orientation/consciousness: patient oriented x3 HEENT Head: Yes normal to inspection General nose exam: No nasal polyps present, No nasal discharge present and Other nasal findings present (Chronic nasal congestion , mild ) Face and sinus: Yes sinuses nontender Mouth: oropharynx normal Throat: Yes posterior oropharynx normal Eyes General: appearance normal, both eyes and all related structures Neck Neck: Yes normal visual inspection, Yes no lymphadenopathy, Yes trachea midline and Yes no JVD Thyroid: Thyroid normal Chest Chest palpation & inspection: normal inspection of the chest, normal palpation of entire chest wall and no tenderness Resp Other: Breath sounds are distant on both sides with prolonged expiratory phase. On auscultation there are no wheezes or rhonchi this time. Cardio Palpation: normal PMI Rate: regular rate Rhythm: regular rhythm Heart sounds: no gallops and no murmurs GI Palpation (GI): Soft to palpation, nontender, No hepatosplenomegaly present and no masses Auscultation: normal bowel sounds Back/Spine/Pelvis Thoracic/Lumbar Spine: thoracic and lumbar spine normal to inspection and thoraco-lumbar ROM limited Skin General skin exam: no rashes or lesions noted Neuro General: patient oriented x3 and no focal motor deficits Cranial nerves: Yes CN's II-XII intact bilaterally Extrem General: Yes normal to inspection, Yes no clubbing, cyanosis or edema and Yes no calf tenderness Psych Appearance: grossly normal and well kempt Speech and movement: Normal speech and movement present Assessment & Plan Assessment & Plan (1) Allergic rhinitis: Comment: Chronic , controlled with meds . Code(s): J30.9 - Allergic rhinitis, unspecified Plan: tx : Flonase 2 spray each nostril daily Azelastin nasal spray one spray in each nostril bid singulair 10 mg po daily . Loratdine 10 mg po once a day PRN . (2) COPD (chronic obstructive pulmonary disease): Comment: MILD TO MODERATE CHRONIC OBSTRUCTIVE PULMONARY DISEASE. STABLE AND CONTROLLED WITH THE CURRENT MEDS. Code(s): J44.9 - Chronic obstructive pulmonary disease, unspecified Plan: TX: CONTINUE THE FOLLOWING REGIMEN: IN PLACE OF serevent , TRY DULERA 200-5 2 PUFFS BID , WHICH IS ON THE FORMULARY Albuterol in Nebulizer q 6 hrs only PRN / ALTERNATIVELY MAY USE ALBUTEROL HFA Q 6 HOURS P.R.N. WHEN OUTDOORS, May take Mucinex 400-600 mg bid,to ease expectoration . Coding Level of Care Code Est Pt Level 3 (27939) Diagnoses Allergic rhinitis J30.9 COPD (chronic obstructive pulmonary disease) J44.9
== END 2023-07-04 13:42 | disposition home or self-care (01) ==
PROVIDERS: PCP Internal Medicine; Visit Provider Internal Medicine
DX: J30.9 Allergic rhinitis, unspecified (principal); J44.9 Chronic obstructive pulmonary disease, unspecified
CPT/HCPCS: 99213

== ENCOUNTER → 2023-07-04 13:11 | Outpatient (BNVA) | payer MEDICARE, MEDICAID, SELFPAY | PROVIDERS: PCP Internal Medicine; Visit Provider Internal Medicine | DX: J44.9 Chronic obstructive pulmonary disease, unspecified (principal); J30.9 Allergic rhinitis, unspecified | CPT/HCPCS: 99212 ==

== ENCOUNTER 2023-07-10 15:40 | Emergency (ER) | payer MEDICARE, MEDICAID, SELFPAY ==
--- NOTE | ~2023-07-10 | US_ITS ---
EXAMINATION: US VENOUS ULTRASOUND WITH DOPPLER LOWER EXTREMITY, LEFT CLINICAL INFORMATION: Left lower extremity pain. Severe upper leg pain and swelling. COMPARISON: None available. TECHNIQUE: Ultrasound of the deep veins is performed from the hip to the calf with compression sonography and color and pulse Doppler assessment. Spectral analysis with color-flow imaging is performed. FINDINGS: There is normal venous compression and respiratory variation and augmented flow. The visualized common femoral vein, superficial femoral vein, profunda femoral vein, popliteal vein, and the trifurcation region shows no evidence of deep venous thrombosis. There is no significant popliteal fossa cyst. The region of the peroneal veins was examined but the vessels were not well visualized. If the patient's symptoms persist, followup ultrasound in 5 days 7 days might be of value to exclude proximal propagation from a non-visualized calf vein. US/US venous duplex LE IMPRESSION: No DVT demonstrated in the left lower extremity.
--- NOTE | ~2023-07-10 | CT_ITS ---
EXAMINATION: CT LUMBAR SPINE WITHOUT CONTRAST CLINICAL INFORMATION: Fall 3 weeks ago. Ongoing back pain COMPARISON: None available. TECHNIQUE: 2 mm thin axial and reformatted 2 mm thin sagittal and coronal images of lumbar spine were obtained. This CT examination was performed using dose optimization techniques as appropriate, variously including the following: *Automated exposure control *Adjustment of mA and/or kV according to patient size (this includes techniques or standardized protocols for targeted exams where dose is matched to indication/reason for exam; i.e. extremities or head) *Use of iterative reconstruction technique DLP; 473 mGy-cm FINDINGS: On sagittal reconstructed images there is maintained lumbar lordosis. There is loss of L4-L5 disc height. Rest of the disc heights is normal. There is grade 1 retrolisthesis L1 over L2 and T12 over L1. There is mild loss of T12-L1 and L4-L5 disc heights. There is L4-L5 disc bulge/osteophyte complex without spinal canal stenosis. At rest of the disc levels there is no evidence of disc bulge, herniation or spinal stenosis at any of the disc levels. The neural foramina are mildly narrowed bilaterally at L1-L2 through L5-S1 disc levels disc levels from facet degenerative arthropathy and enthesophytes. Moderate bilateral facet arthropathy seen at L2-L3, L3-L4, L4-L5 and significant arthropathy bilaterally at L5-S1 disc levels. The paravertebral soft tissues are normal. No aggressive lytic or sclerotic process seen. CT/CT lumbar spine wo IV con IMPRESSION: Bilateral facet joint arthropathy from L2-L3 through L5-S1 disc level significantly worse at the L5-S1 disc level. There is bilateral mild narrowing of neural foramina at all disc levels
[2023-07-10 16:16] VITALS: BP 157/97; PULSE 110; RESP 22; TEMP 36.8; O2SAT 96; BMI 35.2
--- NOTE | 2023-07-10 16:17 | ED_ITS ---
HPI - General Adult General Chief complaint: Extremity Injury, Lower Stated complaint: sciatica Time Seen by Provider: 07/10/23 17:21 Source: patient Mode of arrival: ambulatory Limitations: no limitations History of Present Illness HPI narrative: Patient is an 83-year-old female with history of anemia, osteoporosis, compression fx of spine, paroxysmal afib, COPD, DVT, gout, T2DM, HTN, HLD presenting to the emergency department with complaint of left lateral hip pain which radiates down lateral and anterior aspects of L upper leg. Had a fall 3 weeks ago but was never evaluated after that incident. Denies numbness/tingling. Was prescribed Tylenol with codeine at recent ED visit but states she is afraid to take it, has only taken half tabs. Denies any urinary symptoms. Denies fevers. Denies saddle anesthesia or bowel or bladder incontinence. MD complaint: back pain Location: back Radiation: extremity Severity: severe Quality: burning Pain Consistency: constant Relieving factors: none Exacerbating factors: none Associated symptoms: denies other symptoms Treatments prior to arrival: other Related Data Home Medications Medication Instructions Recorded Confirmed metoprolol succinate 50 mg 75 mg PO DAILY 04/09/22 10/27/22 tablet,extended release 24 hr magnesium 200 mg tablet 400 mg PO BID 10/27/22 10/27/22 Previous Rx's Medication Instructions Recorded blood-glucose meter (LisaStyle #1 ea 04/09/20 Lite Meter kit) epinephrine 0.3 mg/0.3 mL 0.3 mg (0.3 mL) IM ONCE PRN 05/20/22 injection, auto-injector (EpiPen) anaphylaxis #1 ea Ventolin HFA 90 mcg/actuation 2 puff inhalation Q4-6H PRN for 10/08/22 aerosol inhaler (albuterol sulfate) wheezing #18 grams ipratropium 0.5 mg-albuterol 3 mg 3 ml inhalation Q6H PRN 11/02/22 (2.5 mg base)/3 mL nebulization wheezing/SOB 30 days #180 mL soln montelukast 10 mg tablet 10 mg PO BEDTIME allergic Rhinitis 12/30/22 90 days #90 tabs cyclobenzaprine 10 mg tablet 10 mg PO BEDTIME PRN muscle spasm 01/20/23 #20 tabs duloxetine 30 mg capsule,delayed 30 mg PO BID 90 days #180 caps 01/24/23 release pantoprazole 40 mg tablet,delayed 40 mg PO DAILY #90 ea 01/24/23 release rosuvastatin 20 mg tablet 20 mg PO BEDTIME #90 tabs 01/24/23 allopurinol 100 mg tablet 100 mg PO DAILY #90 tabs 02/21/23 fluticasone propionate 50 1 spray intranasal BID 3 months 02/21/23 mcg/actuation nasal #48 grams spray,suspension losartan 50 mg tablet 50 mg PO DAILY #90 tabs 02/21/23 sitagliptin phosphate 50 1 tab PO BID 90 days #180 tabs 02/21/23 mg-metformin 500 mg tablet Pulmicort Flexhaler 180 2 inh inhalation BID #3 inserts 05/30/23 mcg/actuation breath activated (budesonide) Serevent Diskus 50 mcg/dose powder 1 inh inhalation BID ASTHMA/COPD 05/30/23 for inhalation (salmeterol) 30 days #120 ea nebulizers #1 ea 06/16/23 albuterol sulfate 2.5 mg/3 mL 2.5 mg (3 mL) inhalation Q6H PRN 06/23/23 (0.083 %) solution for nebulization shortness of breath or wheezing 30 days #180 mL bisacodyl 5 mg tablet,delayed 5 mg PO DAILY #20 tabs 06/23/23 release (Dulcolax (bisacodyl)) sennosides 8.6 mg tablet (Senokot) 17.2 mg (2 x 8.6 mg) PO BEDTIME 06/23/23 #30 tabs acetaminophen 300 mg-codeine 15 mg 1 tab PO Q12H PRN pain #7 tabs 06/27/23 tablet cefuroxime axetil 500 mg tablet 500 mg PO BID #14 tabs 06/27/23 alprazolam 0.25 mg tablet 0.25 mg PO DAILY anxiety #90 tabs 06/28/23 acetaminophen 300 mg-codeine 15 mg 1 tab PO Q8H PRN pain #7 tabs 06/29/23 tablet diclofenac sodium 1 % topical gel 2 g topical QID #100 grams 07/10/23 prednisone 20 mg tablet 40 mg (2 x 20 mg) PO DAILY #10 tabs 07/10/23 Allergies Allergy/AdvReac Type Severity Reaction Status Date / Time Penicillins [PENICILLINS] Allergy Intermediate rash Verified 07/04/23 13:39 meperidine [Demerol] Allergy Unknown Nausea and Verified 07/04/23 13:39 Vomiting oxycodone Allergy Unknown Nausea and Verified 07/04/23 13:39 Vomiting Sulfa (Sulfonamide Allergy Unknown NAUSEA & Verified 07/04/23 13:39 Antibiotics) VOMITING, [SULFA (SULFONAMIDE GI upset ANTIBIOTICS)] warfarin [WARFARIN] AdvReac Severe UNKNOWN Verified 07/04/23 13:39 aspirin [ASPIRIN] AdvReac Mild gi bleed Verified 07/04/23 13:39 enoxaparin [From LOVENOX] AdvReac Unknown INTERNAL Verified 07/04/23 13:39 BLEEDING heparin [HEPARIN] AdvReac Unknown INTERNAL Verified 07/04/23 13:39 BLEEDING ibuprofen AdvReac Unknown GI bleed Verified 07/04/23 13:39 Chocolate AdvReac Diarrhea Verified 07/04/23 13:39 Review of Systems 2 Review of Systems: Yes all other systems are reviewed and are negative Constitutional: Constitutional: Reports as per HPI [facility] Past Medical History Medical History Mixed stress and urge urinary incontinence Osteoporosis History of compression fracture of spine Compression fracture of body of thoracic vertebra Paroxysmal atrial fibrillation Anemia COVID-19 Diverticulitis COPD (chronic obstructive pulmonary disease) Allergic rhinitis Multiple lipomas Nodular lesion on surface of skin 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) GERD (gastroesophageal reflux disease) Deep vein thrombosis (DVT) of left lower extremity Gout Seasonal allergies Anxiety disorder Type 2 diabetes mellitus without complication, without long-term current use of insulin Hyperlipidemia Hypertension Surgical History H/O local excision of skin lesion Family History Family History Mother Mental health disorder Sister CVA (cerebral vascular accident) Daughter Brain tumor Diabetes Bipolar 1 disorder Heart abnormality Mental illness in member of household Mental health disorder Father Substance use disorder Son Mental health disorder Social History Social History Household Members: Family Housing: House Do you presently have visiting nurse or other home services: No Alcohol intake: former Patient Tobacco Use Status: Former Tobacco user Years Smoked: 10 yrs e-Cigarette/Vaping Use: Never Used Second Hand Smoke Exposure: No Advance Directives: Yes Advance Directives on File: Yes Advance Directives Date on File: 07/27/21 service: No Current occupational status: retired Cognitive needs: No Hearing needs: No Vision needs: Yes Physical Exam ED Vital Signs: Vital Signs - 24 hr 07/10/23 16:16 07/10/23 18:37 Temperature 98.3 F 97.8 F Pulse Rate 110 H 84 Respiratory Rate 22 H 20 Blood Pressure 157/97 H 143/56 H Pulse Oximetry 96 97 Oxygen Delivery Method Room Air Room Air BMI result Body Mass Index 35.2 Vital signs have been reviewed and appear to be correct. Blood pressure elevated. Heart rate mildly tachycardic. Respiratory rate normal. Temperature normal. Oxygen saturation normal. Const General: cooperative, healthy appearing and no acute distress Orientation/consciousness: oriented to person, oriented to place, oriented to time and patient oriented x3 Limitations: no limitations HENMT Head: Yes normocephalic and Yes atraumatic Ears: external ears normal General nose exam: Normal external nose present Face and sinus: Yes face symmetric Mouth: oropharynx normal and moist mucous membranes Throat: Yes uvula midline Eyes Pupils: Equal, round and reactive pupils present Neck Neck: Yes normal visual inspection and Yes supple Resp Effort & Inspection: normal respiratory effort and able to speak in complete sentences Auscultation: clear to auscultation bilaterally Cardio Rate: regular rate Rhythm: regular rhythm Heart sounds: S1 normal heart sound present and S2 normal heart sound present GI Palpation (GI): Soft to palpation and nontender Auscultation: normoactive bowel sounds General: Yes no CVA tenderness Back/Spine/Pelvis Back: no CVA tenderness Thoracic/Lumbar Spine: thoracic and lumbar spine normal to inspection, thoraco- lumbar ROM normal, straight leg raise negative bilaterally, pain with thoraco- lumbar ROM, No thoracic spinal tenderness and No lumbar spinal tenderness Skin General skin exam: elasticity normal and turgor normal Neuro General: oriented to person, oriented to place, oriented to time, patient oriented x3, moves all extremities, no focal motor deficits and CN's II-XI intact bilaterally Cranial nerves: Yes Equal, round and reactive pupils present Cognition (Neuro): normal cognition Extrem General: Yes full ROM, Yes no pedal edema and Yes no calf tenderness Left lower extremity: hip/thigh (no erythema) Details: normal to inspection; no tenderness, no ecchymosis and no unusual warmth Psych Mental Status: mental status grossly normal Affect: normal affect Thought process: Normal thought process present Course Course Course Narrative: This is a rapid medical exam: Additional HPI, ROS, PE not included below will be deferred to primary provider. Patient is an 83-year-old female with history of anemia, osteoporosis, compression fx of spine, paroxysmal afib, COPD, DVT, gout, T2DM, HTN, HLD presenting to the emergency department with complaint of left lateral hip pain which radiates down lateral and anterior aspects of L upper leg. Had a fall 3 weeks ago but was never evaluated after that incident. Plan: lumbar CT, LLE u/s Medical Decision Making Medical Decision Making [facility] Narrative: Patient is an 83-year-old female with history of anemia, osteoporosis, compression fx of spine, paroxysmal afib, COPD, DVT, gout, T2DM, HTN, HLD presenting to the emergency department with complaint of left lateral hip pain which radiates down lateral and anterior aspects of L upper leg. On exam patient is awake, A+Ox3, initially tachycardic, improved while in ED, VS otherwise WNL, afebrile, normal neurological exam without focal deficits, physical exam findings as above. Given reported symptoms and physical exam findings, initial differential includes fracture, DVT, degenerative disease, spondylosis. Labs notable for mild chronic leukocytosis without left shift, chronic anemia, mildly elevated CUB. Ultrasound notable for no DVT, CT notable for bilateral arthropathy from L2/3 through L5/S1. My interpretation is in agreement with the radiologist's interpretation. Results discussed with patient and son and all questions answered. Based on physical exam findings, feel pain is likely due to lumbar radiculopathy. Instructed patient to follow up with PCP for further evaluation/management. Will treat with course of prednisone and diclofenac gel. Return precautions discussed at bedside. Patient and son verbalized understanding of and agreement with plan. Differential Diagnosis Differential Diagnoses: The differential diagnosis associated with the presentation includes as per [facility] Admission/Observation Consideration of admission/observation: Escalation of care including admission/observation considered Patient would have been admitted to the hospital had their work up had any findings where hospital admission was appropriate and their clinical presentation warranted hospital admission. Lab Data MDM Lab Attestation statement: I reviewed the patient's lab results. As per [facility] 07/10/23 16:39 07/10/23 16:39 Labs: Lab Results 07/10/23 Range/Units 16:39 WBC 11.7 H (4.8-10.8) X10*3/uL RBC 4.23 (4.20-5.50) X10*6/uL Hgb 11.6 L (12.0-16.0) g/dl Hct 35.8 L (37.0-47.0) % MCV 84.6 (80.0-98.0) fL MCH 27.4 (27.0-33.0) pg MCHC 32.4 (31.0-35.0) g/dl RDW 16.1 H (11.0-16.0) % Plt Count 307 (160-400) X10*3/uL MPV 9.9 (9.4-12.3) fL Immature Gran % (Auto) 0.3 (0.0-0.4) % Neut % (Auto) 51.7 (45-73) % Lymph % (Auto) 37.4 (20-40) % Harris % (Auto) 8.1 (2-11) % Eos % (Auto) 1.8 (0-4) % Baso % (Auto) 0.7 (0-2) % Lymph # (Auto) 4.4 (1.2-4.9) X10*3/uL Harris # (Auto) 1.0 (0.1-1.2) X10*3/uL Eos # (Auto) 0.2 (0.0-0.4) X10*3/uL Baso # (Auto) 0.1 (0.0-0.2) X10*3/uL Abs Immat Gran (auto) 0.04 H (0.00-0.03) X10*3/uL Absolute Neuts (auto) 6.0 (2.0-8.3) x10*3/uL Absolute Nucleated RBC 0.000 (0.0-0.012) X10*3/uL Nucleated RBC % (auto) 0.0 (0.0-0.2) /100WBC PT 12.4 (11.1-13.3) SEC INR 1.0 (0.9-1.1) Sodium 145 (135-145) mmol/L Potassium 4.0 D (3.3-5.1) mmol/L Chloride 104 (96-108) mmol/L Carbon Dioxide 27 (22-29) mmol/L Anion Gap 18 (12-20) BUN 18 H (9-16) mg/dL Creatinine 0.90 (0.5-1.4) mg/dL Estim Creat Clear Calc 45.6 Estimated GFR 60 Random Glucose 136 H (60-115) mg/dL Calcium 10.1 D (8.4-10.2) mg/dL Total Bilirubin 0.3 (0.0-1.0) mg/dL AST 18 (5-31) U/L ALT 14 (0-31) U/L Alkaline Phosphatase 113 (39-117) U/L Total Protein 8.3 H (6.5-8.0) g/dL Albumin 4.5 (3.5-5.0) g/dL Independent Interpretation I performed an independent interpretation of an: Ultrasound and CT Scan Interpretation: No evidence of DVT on ultrasound Bilateral arthropathy from L2/3 through L5/S1 Radiology Impression Discussion of test interpretation with radiology: I have reviewed the radiologist's reading. Radiologist Impression: CT/CT lumbar spine wo IV con IMPRESSION: Bilateral facet joint arthropathy from L2-L3 through L5-S1 disc level significantly worse at the L5-S1 disc level. There is bilateral mild narrowing of neural foramina at all disc levels US/US venous duplex LE LT IMPRESSION: No DVT demonstrated in the left lower extremity. External Record Review External record reviewed: Inpatient record, Office record and Outpatient record Prescription Management I considered prescription management with: Pain Medication Discharge Plan Discharge Clinical Impression: Acute left lumbar radiculopathy Patient Disposition: Home, Self-Care Instructions: Lumbar Radiculopathy (ED) Additional Instructions: You were evaluated in the emergency department today for back pain. Your evaluation did not show signs of medical conditions requiring emergent intervention at this time. We recommended that you use Tylenol per package directions every 6 hours as needed for pain. You are being prescribed a short course of steroids to decrease inflammation. You are also being prescribed a topical gel which you can apply up to 4 times daily. Please schedule an appointment for follow-up with your primary care physician this week for further evaluation of your symptoms. Return to the emergency department if you experience worsening back pain, difficulty walking, fevers, numbness, tingling, incontinence, groin numbness or tingling, or any other concerning symptoms. Prescriptions: New prednisone 20 mg tablet 40 mg PO DAILY Qty: 10 0RF diclofenac sodium 1 % gel 2 g topical QID Qty: 100 0RF Rx Instructions: apply to affected area of left leg No Action (DME) blood-glucose meter [FreeStyle Lite Meter] Kit See Rx Instructions .ROUTE .MEDSUPPLY Qty: 1 0RF Rx Instructions: Check blood sugar once a day as directed epinephrine [EpiPen] 0.3 mg/0.3 mL auto-injector 0.3 mg IM ONCE PRN (Reason: anaphylaxis) Qty: 1 0RF Rx Instructions: do not exceed 12 doses per 24 hrs albuterol sulfate [Ventolin HFA] 90 mcg/actuation HFA aerosol inhaler 2 puff inhalation Q4-6H PRN (Reason: for wheezing) Qty: 18 0RF ipratropium-albuterol 0.5 mg-3 mg(2.5 mg base)/3 mL solution for nebulization 3 ml inhalation Q6H PRN (Reason: wheezing/SOB) 30 Days Qty: 180 2RF duloxetine 30 mg capsule,delayed release(DR/EC) 30 mg PO BID 90 Days Qty: 180 1RF pantoprazole 40 mg tablet,delayed release (DR/EC) 40 mg PO DAILY Qty: 90 1RF rosuvastatin 20 mg tablet 20 mg PO BEDTIME Qty: 90 1RF allopurinol 100 mg tablet 100 mg PO DAILY Qty: 90 1RF fluticasone propionate 50 mcg/actuation spray,suspension 1 spray intranasal BID 90 Days Qty: 48 1RF Rx Instructions: administer into each nostril losartan 50 mg tablet 50 mg PO DAILY Qty: 90 1RF sitagliptin phos-metformin 50-500 mg tablet 1 tab PO BID 90 Days Qty: 180 1RF Pulmicort Flexhaler 180 mcg/actuation aerosol powdr breath activated 2 inh inhalation BID Qty: 3 3RF Serevent Diskus 50 mcg/dose blister with device 1 inh inhalation BID 30 Days Qty: 120 5RF (DME) nebulizers Misc See Rx Instructions .Route Qty: 1 0RF Rx Instructions: As directed albuterol sulfate 2.5 mg /3 mL (0.083 %) solution for nebulization 2.5 mg inhalation Q6H PRN (Reason: shortness of breath or wheezing) 30 Days Qty: 180 5RF alprazolam 0.25 mg tablet 0.25 mg PO DAILY Qty: 90 0RF acetaminophen-codeine 300-15 mg tablet 1 tab PO Q12H PRN (Reason: pain) Qty: 7 0RF cefuroxime axetil 500 mg tablet 500 mg PO BID Qty: 14 0RF acetaminophen-codeine 300-15 mg tablet 1 tab PO Q8H PRN (Reason: pain) Qty: 7 0RF metoprolol succinate 50 mg tablet extended release 24 hr 75 mg PO DAILY Protocol: Hold for SBP/HR < HOLD for SBP < : 90 HOLD for HR < : 60 cyclobenzaprine 10 mg tablet 10 mg PO BEDTIME PRN (Reason: muscle spasm) Qty: 20 0RF sennosides [Senokot] 8.6 mg tablet 17.2 mg PO BEDTIME Qty: 30 0RF bisacodyl [Dulcolax (bisacodyl)] 5 mg tablet,delayed release (DR/EC) 5 mg PO DAILY Qty: 20 0RF montelukast 10 mg tablet 10 mg PO BEDTIME 90 Days Qty: 90 3RF magnesium 200 mg tablet 400 mg PO BID Interventions: ED Discharge Assessment Last Done: 07/10/23 18:37
[2023-07-10 16:44] LABS: Basophils Absolute Auto 0.1 X10*3/uL (0.0-0.2); Basophils Percent Auto 0.7 % (0-2); Eosinophils Absolute Auto 0.2 X10*3/uL (0.0-0.4); Eosinophils Percent Auto 1.8 % (0-4); Hematocrit 35.8 % (37.0-47.0); Hemoglobin 11.6 g/dl (12.0-16.0); Imm Gran Abs Auto 0.04 X10*3/uL (0.00-0.03); Imm Gran Pct Auto 0.3 % (0.0-0.4); Lymphocytes Absolute Auto 4.4 X10*3/uL (1.2-4.9); Lymphocytes Percent Auto 37.4 % (20-40); MANUAL DIFF FLAG NO; Mean Corpuscular HGB Conc 32.4 g/dl (31.0-35.0); Mean Corpuscular Hemoglobin 27.4 pg (27.0-33.0); Mean Corpuscular Volume 84.6 fL (80.0-98.0); Mean Platelet Volume 9.9 fL (9.4-12.3); Monocytes Percent Auto 8.1 % (2-11); Neutrophils Percent Auto 51.7 % (45-73); Platelet Count 307 X10*3/uL (160-400); Red Blood Count 4.23 X10*6/uL (4.20-5.50); Red Cell Distribution Width 16.1 % (11.0-16.0); White Blood Count 11.7 X10*3/uL (4.8-10.8)
[2023-07-10 16:51] LABS: Prothrombin Time 12.4 SEC (11.1-13.3)
[2023-07-10 17:00] LABS: Alanine Aminotransferase 14 U/L (0-31); Albumin Level 4.5 g/dL (3.5-5.0); Alkaline Phosphatase 113 U/L (39-117); Anion Gap 18 (12-20); Aspartate Amino Transferase 18 U/L (5-31); Bilirubin Total 0.3 mg/dL (0.0-1.0); Blood Urea Nitrogen 18 mg/dL (9-16); Calcium 10.1 mg/dL (8.4-10.2); Carbon Dioxide 27 mmol/L (22-29); Chloride 104 mmol/L (96-108); Creatinine Clr Calc Pharmacy 45.6; Estimated Glomerular Filt Rate 60; Glucose Random 136 mg/dL (60-115); Sodium 145 mmol/L (135-145); Total Protein 8.3 g/dL (6.5-8.0)
[2023-07-10 18:37] VITALS: BP 143/56; PULSE 84; RESP 20; TEMP 36.6; O2SAT 97
== END 2023-07-10 18:43 | disposition home or self-care (01) ==
PROVIDERS: Registered Nurse Emergency; Emergency Provider Internal Medicine; PCP Internal Medicine
DX: M54.16 Radiculopathy, lumbar region (principal); E11.9 Type 2 diabetes mellitus without complications; I10 Essential (primary) hypertension; I48.0 Paroxysmal atrial fibrillation; J44.9 Chronic obstructive pulmonary disease, unspecified; Z86.718 Personal history of other venous thrombosis and embolism
CPT/HCPCS: 36415; 72132; 80053; 85025; 85610; 93971; 99282; 99284

== ENCOUNTER 2023-07-13 09:32 | Outpatient (AMB) | payer MEDICARE, MEDICAID, SELFPAY ==
--- NOTE | 2023-07-13 09:33 | AM.OFFWIN_ITS ---
Intake Vital Signs 07/13/23 09:35 Height 5 ft BP 140/82 H Blood Pressure Location Rt brachial Position Sitting Pulse 99 Pulse Source Pulse Oximeter Pulse Oximetry (%) 100 Oxygen Delivery Method Room Air Intake Visit Reasons: EP Sciatic pain Patient Tobacco Use Status: Former Tobacco user Allergies Penicillins [PENICILLINS] Allergy (Intermediate, Verified 07/13/23 09:59) rash meperidine [Demerol] Allergy (Unknown, Verified 07/13/23 09:59) Nausea and Vomiting oxycodone Allergy (Unknown, Verified 07/13/23 09:59) Nausea and Vomiting Sulfa (Sulfonamide Antibiotics) [SULFA (SULFONAMIDE ANTIBIOTICS)] Allergy (Unknown, Verified 07/13/23 09:59) NAUSEA & VOMITING, GI upset warfarin [WARFARIN] Adverse Reaction (Severe, Verified 07/13/23 09:59) UNKNOWN aspirin [ASPIRIN] Adverse Reaction (Mild, Verified 07/13/23 09:59) gi bleed enoxaparin [From LOVENOX] Adverse Reaction (Unknown, Verified 07/13/23 09:59) INTERNAL BLEEDING heparin [HEPARIN] Adverse Reaction (Unknown, Verified 07/13/23 09:59) INTERNAL BLEEDING ibuprofen Adverse Reaction (Unknown, Verified 07/13/23 09:59) GI bleed Chocolate Adverse Reaction (Verified 07/13/23 09:59) Diarrhea Medication List - Last Reconciled 07/13/23 by Melvin Martinez MD acetaminophen-codeine 300-15 mg 1 tab PO Q12H PRN acetaminophen-codeine 300-15 mg 1 tab PO Q8H PRN albuterol sulfate 2.5 mg (3 mL) inhalation Q6H PRN 30 days allopurinol 100 mg PO DAILY alprazolam 0.25 mg PO DAILY bisacodyl (Dulcolax (bisacodyl)) 5 mg PO DAILY blood-glucose meter (FreeStyle Lite Meter kit) Check blood sugar once a day as directed cefuroxime axetil 500 mg PO BID cyclobenzaprine 10 mg PO BEDTIME PRN cyclobenzaprine 10 mg PO BEDTIME diclofenac sodium 1% 2 grams topical QID duloxetine 30 mg PO BID 90 days epinephrine (EpiPen) 0.3 mg (0.3 mL) IM ONCE PRN fluticasone propionate 50 mcg/actuation 1 spray intranasal BID 3 months gabapentin (Neurontin) 100 mg PO BID ipratropium-albuterol 0.5 mg-3 mg(2.5 mg base)/3 mL 3 mL inhalation Q6H PRN 30 days losartan 50 mg PO DAILY magnesium 400 mg PO BID metoprolol succinate ER 75 mg See Protocol PO DAILY montelukast 10 mg PO BEDTIME 90 days nebulizers As directed pantoprazole 40 mg PO DAILY prednisone 40 mg (2 x 20 mg) PO DAILY Pulmicort Flexhaler 180 mcg/actuation (budesonide) 2 inhalations inhalation BID NS rosuvastatin 20 mg PO BEDTIME sennosides (Senokot) 17.2 mg (2 x 8.6 mg) PO BEDTIME Serevent Diskus (salmeterol) 1 inh inhalation BID 30 days NS sitagliptin phos-metformin 50-500 mg 1 tab PO BID 90 days Ventolin HFA 90 mcg/actuation (albuterol sulfate) 2 puffs inhalation Q4-6H PRN NS Do you need a note to return to daycare/school/sports/work: No HPI EP Sciatic pain HPI Details 83-year-old female presents to the [facility] for a sick visit. Patient was in the emergency room recently with complaints of severe left hip and leg pain. Pain symptoms have been going on for 3 weeks. Swelling in the left hip and leg pain. Patient was informed that her symptoms are musculoskeletal in nature and discharged on prednisone. Patient reports that his marked relief with the prednisone. She is now able to walk. Unable to tolerate NSAIDs. 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) GERD (gastroesophageal reflux disease) Deep vein thrombosis (DVT) of left lower extremity Gout Seasonal allergies Anxiety disorder Type 2 diabetes mellitus without complication, without long-term current use of insulin Hyperlipidemia Hypertension Surgical History H/O local excision of skin lesion Family History Mother Mental health disorder Sister CVA (cerebral vascular accident) Daughter Brain tumor Diabetes Bipolar 1 disorder Heart abnormality Mental illness in member of household Mental health disorder Father Substance use disorder Son Mental health disorder Social History Household Members: Family Housing: House Do you presently have visiting nurse or other home services: No Alcohol intake: former Patient Tobacco Use Status: Former Tobacco user Years Smoked: 10 yrs e-Cigarette/Vaping Use: Never Used Second Hand Smoke Exposure: No Advance Directives Date on File: 07/27/21 service: No Current occupational status: retired Cognitive needs: No Hearing needs: No Vision needs: Yes Physical Exam Vital Signs: Last Vital Signs Pulse 99 07/13/23 09:35 BP 140/82 H 07/13/23 09:35 Pulse Ox 100 07/13/23 09:35 Oxygen Delivery Method Room Air 07/13/23 09:35 Back/Spine/Pelvis Other: No spinal tenderness. No paraspinal spasm. Left hip: Full range of motion. Internal and external rotation does not elicit any pain. Assessment & Plan Assessment & Plan (1) Acute left lumbar radiculopathy: Code(s): M54.16 - Radiculopathy, lumbar region Plan: ER visit reviewed. CT scan and ultrasound results reviewed. Neurontin and cyclobenzaprine added to the regimen. If symptoms do not improve to follow-up here. Medications: New cyclobenzaprine 10 mg PO BEDTIME 14 tabs 0RF gabapentin (Neurontin) 100 mg PO BID 30 caps 0RF Coding Level of Care Code Est Pt Level 4 (18172) Diagnoses Acute left lumbar radiculopathy M54.16
[2023-07-13 09:35] VITALS: BP 140/82; PULSE 99; O2SAT 100
== END 2023-07-13 10:11 | disposition home or self-care (01) ==
PROVIDERS: PCP Internal Medicine; Visit Provider Internal Medicine
DX: M54.16 Radiculopathy, lumbar region (principal)
CPT/HCPCS: 99214

== ENCOUNTER 2023-07-20 09:22 | Outpatient (AMB) | payer MEDICARE, MEDICAID, SELFPAY ==
--- NOTE | 2023-07-20 09:41 | A.OFFPC_ITS ---
Vital Signs 07/20/23 09:42 Height 5 ft Weight 160 lb BMI 31.2 BP 136/80 Blood Pressure Location Lt brachial Position Sitting Pulse 75 Pulse Source Pulse Oximeter Pulse Oximetry (%) 98 Oxygen Delivery Method Room Air Intake Visit Reasons: C ER x 2 for sciatic pain Intake Note: Pt is here today for C ER f/u Allergies Penicillins [PENICILLINS] Allergy (Intermediate, Verified 07/20/23 23:46) rash meperidine [Demerol] Allergy (Unknown, Verified 07/20/23 23:46) Nausea and Vomiting oxycodone Allergy (Unknown, Verified 07/20/23 23:46) Nausea and Vomiting Sulfa (Sulfonamide Antibiotics) [SULFA (SULFONAMIDE ANTIBIOTICS)] Allergy (Unknown, Verified 07/20/23 23:46) NAUSEA & VOMITING, GI upset warfarin [WARFARIN] Adverse Reaction (Severe, Verified 07/20/23 23:46) UNKNOWN aspirin [ASPIRIN] Adverse Reaction (Mild, Verified 07/20/23 23:46) gi bleed enoxaparin [From LOVENOX] Adverse Reaction (Unknown, Verified 07/20/23 23:46) INTERNAL BLEEDING heparin [HEPARIN] Adverse Reaction (Unknown, Verified 07/20/23 23:46) INTERNAL BLEEDING ibuprofen Adverse Reaction (Unknown, Verified 07/20/23 23:46) GI bleed Chocolate Adverse Reaction (Verified 07/20/23 23:46) Diarrhea Medication List - Last Reconciled 07/20/23 by Melissa Shannon MD albuterol sulfate 2.5 mg (3 mL) inhalation Q6H PRN 30 days allopurinol 100 mg PO DAILY alprazolam 0.25 mg PO DAILY bisacodyl (Dulcolax (bisacodyl)) 5 mg PO DAILY blood-glucose meter (FreeStyle Lite Meter kit) Check blood sugar once a day as directed duloxetine 30 mg PO BID 90 days epinephrine (EpiPen) 0.3 mg (0.3 mL) IM ONCE PRN fluticasone propionate 50 mcg/actuation 1 spray intranasal BID 3 months gabapentin (Neurontin) 100 mg PO BID ipratropium-albuterol 0.5 mg-3 mg(2.5 mg base)/3 mL 3 mL inhalation Q6H PRN 30 days losartan 50 mg PO DAILY magnesium 400 mg PO BID metoprolol succinate ER 75 mg See Protocol PO DAILY montelukast 10 mg PO BEDTIME 90 days nebulizers As directed pantoprazole 40 mg PO DAILY Pulmicort Flexhaler 180 mcg/actuation (budesonide) 2 inhalations inhalation BID NS rosuvastatin 20 mg PO BEDTIME Serevent Diskus (salmeterol) 1 inh inhalation BID 30 days NS sitagliptin phos-metformin 50-500 mg 1 tab PO BID 90 days Ventolin HFA 90 mcg/actuation (albuterol sulfate) 2 puffs inhalation Q4-6H PRN NS Tobacco use date assessed: 07/20/23 Fall risk assessment: 1 Fall in past year Last assessed Fall Risk: 07/20/23 Dental Screening Dental Screen Date: 07/20/23 Did you have a dental visit in the last 12 months?: No Was dental information given to patient?: No HPI [facility] ER x 2 for sciatic pain HPI Details 83-year-old lady here today for follow-u p after recent visit at the walk-in clinic complaining of acute low back pain mainly on the left side shooting down left leg. No history of trauma or strenuous exertion. Patient was prescribed gabapentin to take twice a day which has helped relieve the pain, has not been exhibiting any side effects from the medication.. Would like a refill of this medication. 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) GERD (gastroesophageal reflux disease) Deep vein thrombosis (DVT) of left lower extremity Gout Seasonal allergies Anxiety disorder Type 2 diabetes mellitus without complication, without long-term current use of insulin Hyperlipidemia Hypertension Surgical History H/O local excision of skin lesion Family History Mother Mental health disorder Sister CVA (cerebral vascular accident) Daughter Brain tumor Diabetes Bipolar 1 disorder Heart abnormality Mental illness in member of household Mental health disorder Father Substance use disorder Son Mental health disorder Social History Household Members: Family Housing: House Do you presently have visiting nurse or other home services: No Alcohol intake: former Patient Tobacco Use Status: Former Tobacco user Years Smoked: 10 yrs e-Cigarette/Vaping Use: Never Used Second Hand Smoke Exposure: No Advance Directives Date on File: 07/27/21 service: No Current occupational status: retired Cognitive needs: No Hearing needs: No Vision needs: Yes Questionnaire PHQ-9 Over the last 2 weeks, how often have you been bothered by any of the following problems? 1. Little interest or pleasure in doing things: not at all 2. Feeling down, depressed, or hopeless: not at all 3. Trouble falling or staying asleep, or sleeping too much: not at all 4. Feeling tired or having little energy: not at all 5. Poor appetite or overeating: nearly every day 6. Feeling bad about yourself - or that you are a failure or have let yourself or your family down: not at all 7. Trouble concentrating on things, such as reading the newspaper or watching television: not at all 8. Moving or speaking so slowly that other people could have noticed. Or the opposite - being so fidgety or restless that you have been moving around a lot more than usual: not at all 9. Thoughts that you would be better off or of hurting yourself in some way: not at all Total score: 3 Depression Screening Interpretation: Negative Depression Screening Done: Yes 10883 - PHQ-9 Billing: Yes Source: Developed by Drs. Dg Louis, Joyce Saez, Gigi Gaytan and colleagues, with an educational bao from [employer]. Thrive Questionnaire Date Thrive assessed: 07/20/23 I am a: Patient What is your living situation today?: I have a steady place to live Within the past 12 months, did the food you bought not last and you didn't have the money to get more?: Never true Within the past 12 months, did you worry whether your food would run out before you got money to buy more?: Never true Do you have trouble paying for medicines?: No Do you have trouble getting transportation to medical appointments?: No Do you have trouble paying your heating and electricity bill?: No Do you have trouble taking care of your child, family member or friend?: No Do you have trouble with day-to-day activities such as bathing, preparing meals, shopping, managing finances, etc.?: No Are you currently unemployed and looking for a job?: No Are you interested in more education?: No THRIVE Score: 0 AUDIT C Alcohol Use Questionnaire (AUDIT-C) 1. How often do you have a drink containing alcohol?: Never Total Score: 0 KIRA-7 AMB Questionnaire KIRA-7 Date KIRA - 7 assessed: 07/20/23 Feeling nervous, anxious, or on edge: 0 = Not at all Not being able to stop or control worryin = Not at all Worrying too much about different things: 0 = Not at all Trouble relaxin = Not at all Being so restless that it is hard to sit still: 1 = Several days Becoming easily annoyed or irritable: 0 = Not at all Feeling afraid as if something awful might happen: 0 = Not at all Total KIRA-7 score (0-4 normal; 5-9 mild; 10-14 moderate; 15-21 severe): 1 Source: Developed by Drs. Dg Louis, Joyce Saez, Gigi Gaytan and colleagues, with an educational bao from [employer]. KIRA-7 Assessment Billing KIRA-7 Assessment Tool: KIRA-7 Assessment 31235 Review of Systems Const All systems reviewed & are unremarkable except as noted in HPI and below Physical exam (Primary Care) Vital Signs: Last Vital Signs Pulse 75 07/20/23 09:42 BP 136/80 07/20/23 09:42 Pulse Ox 98 07/20/23 09:42 Oxygen Delivery Method Room Air 07/20/23 09:42 BMI result Body Mass Index 31.2 Tobacco/Smoking Status: Tobacco use Status Tobacco use date assessed 07/20/23 07/20/23 09:52 Patient Tobacco Use Status Former Tobacco user 07/20/23 09:44 e-Cigarette/Vaping Use Never Used 07/20/23 09:44 PHQ-9: PHQ-9 Score PHQ-9: Total score 3 07/20/23 23:47 Depression Screening Interpretation: Negative Thrive Assessment: Date of Thrive Assessment Date Thrive assessed 07/20/23 07/20/23 10:33 Const Other: Alert oriented x3, no acute cardiorespiratory distress noted, accompanied by daughter Nutritional Appearance: obese Orientation/consciousness: patient oriented x3 Neck Neck: Yes full ROM, Yes no lymphadenopathy and Yes supple Resp Effort & Inspection: normal respiratory effort and able to speak in complete sentences Auscultation: wheezes scattered wheezes Cardio Other: S1-S2 present regular rate and rhythm General: Yes no CVA tenderness Back/Spine/Pelvis Back: no CVA tenderness and No back tenderness Skin General skin exam: no rashes or lesions noted Neuro General: patient oriented x3, tone normal and moves all extremities Gait exam (Neuro): Assistive device used Extrem General: Yes full ROM, Yes no joint enlargement and Yes no clubbing, cyanosis or edema Assessment and Plan Assessment & Plan (1) Lumbar back pain with radiculopathy affecting left lower extremity: Code(s): M54.16 - Radiculopathy, lumbar region Plan: Symptoms improved, will continue on gabapentin 100 mg per capsule to take 1 capsule twice a day Medications: Refilled gabapentin (Neurontin) 100 mg PO BID 60 caps 5RF Coding Level of Care Code Est Pt Level 3 (38371) Diagnoses Lumbar back pain with radiculopathy affecting left lower extremity M54.16 Additional Codes KIRA-7 Assessment Billing - KIRA-7 Assessment Tool: IKRA-7 Assessment 52346 ([id number])
[2023-07-20 09:42] VITALS: BP 136/80; PULSE 75; O2SAT 98; BMI 31.2
== END 2023-07-20 11:26 | disposition home or self-care (01) ==
PROVIDERS: PCP Internal Medicine; Visit Provider Internal Medicine
DX: M54.16 Radiculopathy, lumbar region (principal)
CPT/HCPCS: 99213

== ENCOUNTER 2023-08-12 09:03 | Outpatient (AMB) | payer MEDICARE, MEDICAID, SELFPAY ==
[2023-08-12 09:05] VITALS: BP 134/90; PULSE 88; O2SAT 98; BMI 31.8
--- NOTE | 2023-08-12 09:05 | AM.OFFVISMDC ---
Intake Vital Signs 08/12/23 09:05 Height 5 ft Weight 163 lb BMI 31.8 BP 134/90 H Blood Pressure Location Rt brachial Position Sitting Pulse 88 Pulse Source Pulse Oximeter Pulse Oximetry (%) 98 Oxygen Delivery Method Room Air Intake Visit Reasons: AWV Intake Note: Pt is here today for her AWv Allergies Penicillins [PENICILLINS] Allergy (Intermediate, Verified 08/12/23 09:20) rash meperidine [Demerol] Allergy (Unknown, Verified 08/12/23 09:20) Nausea and Vomiting oxycodone Allergy (Unknown, Verified 08/12/23 09:20) Nausea and Vomiting Sulfa (Sulfonamide Antibiotics) [SULFA (SULFONAMIDE ANTIBIOTICS)] Allergy (Unknown, Verified 08/12/23 09:20) NAUSEA & VOMITING, GI upset warfarin [WARFARIN] Adverse Reaction (Severe, Verified 08/12/23 09:20) UNKNOWN aspirin [ASPIRIN] Adverse Reaction (Mild, Verified 08/12/23 09:20) gi bleed enoxaparin [From LOVENOX] Adverse Reaction (Unknown, Verified 08/12/23 09:20) INTERNAL BLEEDING heparin [HEPARIN] Adverse Reaction (Unknown, Verified 08/12/23 09:20) INTERNAL BLEEDING ibuprofen Adverse Reaction (Unknown, Verified 08/12/23 09:20) GI bleed Chocolate Adverse Reaction (Verified 08/12/23 09:20) Diarrhea Medication List - Last Reconciled 08/12/23 by Melissa Shannon MD albuterol sulfate 2.5 mg (3 mL) inhalation Q6H PRN 30 days allopurinol 100 mg PO DAILY alprazolam 0.25 mg PO DAILY bisacodyl (Dulcolax (bisacodyl)) 5 mg PO DAILY blood-glucose meter (FreeStyle Lite Meter kit) Check blood sugar once a day as directed duloxetine 30 mg PO BID 90 days epinephrine (EpiPen) 0.3 mg (0.3 mL) IM ONCE PRN fluticasone propionate 50 mcg/actuation 1 spray intranasal BID 3 months gabapentin (Neurontin) 100 mg PO BID ipratropium-albuterol 0.5 mg-3 mg(2.5 mg base)/3 mL 3 mL inhalation Q6H PRN 30 days losartan 50 mg PO DAILY magnesium 400 mg PO BID metoprolol succinate ER 75 mg See Protocol PO DAILY montelukast 10 mg PO BEDTIME 90 days nebulizers As directed pantoprazole 40 mg PO DAILY Pulmicort Flexhaler 180 mcg/actuation (budesonide) 2 inhalations inhalation BID NS rosuvastatin 20 mg PO BEDTIME Serevent Diskus (salmeterol) 1 inh inhalation BID 30 days NS sitagliptin phos-metformin 50-500 mg 1 tab PO BID 90 days Ventolin HFA 90 mcg/actuation (albuterol sulfate) 2 puffs inhalation Q4-6H PRN NS HPI AWV HPI Details AWV ? 83 year old lady with history of osteoporosis with history of compression fracture of spine, has mixed stress and urge incontinence, paroxysmal atrial fibrillation, COPD, gout, seasonal allergic rhinitis, anxiety disorder, type 2 diabetes mellitus, hyperlipidemia, hypertension and chronic low back pain, presents for her ? Annual Wellness Visit, initial visit.? She has lumbar radiculopathy, having recurrent back pain, which she states she is much improved ever since she was started on gabapentin 100 mg taken 1 tablet twice a day. Patient would like to see if she can increase her dosing frequency as she still gets some discomfort and pain in her lower back during the day. Denies any adverse effects from the medication, denies any lightheadedness, sleepiness. She is up-to-date with her screening mammogram, done 11/30/2022 with normal findings. Had recent fasting lipid panel done 07/01/2023 which showed normal findings except for slightly elevated triglycerides, her fasting glucose at that time also was within normal limits with a hemoglobin A1c at 6.5%. Never had colon cancer screening, declined colonoscopy. Last bone density scan was 09/22/2018 which showed presence of osteopenia in left femoral neck with a T-score of-1.3, normal in her AP spine and left femur. Patient does not want to have a repeat test done. She has had COVID vaccines in the past but does not want to get a booster, has been getting her yearly flu vaccine, up-to-date with her Shingrix vaccination and pneumonia vaccine as well as Tdap. Has not yet had her RSV vaccination, and has strongly recommended that she gets this vaccine . ? Medical / Social History Reviewed? Past Medical History ?Yes . ? [place] of Care / Care Team list updated ?Yes . ? Surgical/Hospitalization History ?Yes . ? Current Medications (including OTC and supplements) ?Yes . ? Family History ?Yes . ? Tobacco Control form ?Yes . ? AUDIT-C (Alcohol use) form ?Yes . ? Illicit drug use in Social History ?Yes . ? Current diagnosis of depression? ?No ? Appropriate PHQ2/PHQ9 completed ?Yes . ? Data entered by ?Director Of Entertainment and reviewed by provider ? Fall Risk ? Fall History? Have you had any falls with injury in the past year? ?No . ? Have you had two or more falls in the past year? ?No . ? Fall Risk Assessment: ?No falls in the past year . ? HRA filled out by the patient, reviewed by Provider and scanned. ?AWV ? Balance? [place] ?Yes . ? Tandem walk ?with difficulty . ? Walk and Turn ?Yes . ? Rise from sit to stand ?Yes . ?Vision? Corrective lens none ? Vision screen ? Up-to-date, she sees Dr. Chery for her routine eye exam ?Hearing? Whisper test ?failed ?Written Plan?Completed. See Patient Documents.? 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) GERD (gastroesophageal reflux disease) Deep vein thrombosis (DVT) of left lower extremity Gout Anxiety disorder Type 2 diabetes mellitus without complication, without long-term current use of insulin Hyperlipidemia Hypertension Surgical History H/O local excision of skin lesion Family History Mother Mental health disorder Sister CVA (cerebral vascular accident) Daughter Brain tumor Diabetes Bipolar 1 disorder Heart abnormality Mental illness in member of household Mental health disorder Father Substance use disorder Son Mental health disorder Social History Household Members: Family Housing: House Do you presently have visiting nurse or other home services: No Alcohol intake: former Patient Tobacco Use Status: Former Tobacco user Years Smoked: 10 yrs e-Cigarette/Vaping Use: Never Used Second Hand Smoke Exposure: No Advance Directives Date on File: 07/27/21 service: No Current occupational status: retired Cognitive needs: No Hearing needs: No Vision needs: Yes Questionnaire Medicare Wellness Checkup What is your age?: 80 or older What gender do you identify with?: female During the past 4 weeks, how much have you been bothered by emotional problems such as feeling anxious, depressed, irritable, sad or downhearted, and blue?: moderately During the past 4 weeks, has your physical & emotional health limited your social activities with family, friends, neighbors, or groups?: slightly During the past 4 weeks, how much bodily pain have you generally had?: moderate pain During the past 4 weeks, was someone available to help you if you needed & wanted help?: yes, as much as I wanted During the past 4 weeks, what was the hardest physical activity you could do for at least 2 minutes?: moderate Can you get to places out of walking distance without help? (For eg., can you travel alone on buses, taxis or drive your car?): No Can you go shopping for groceries or clothes without someone's help?: No Can you prepare your own meals?: Yes Can you do your housework without help?: No Because of any health problems, do you need the help of another person with your personal care needs such as eating, bathing, dressing or getting around the house?: Yes Can you handle your own money without help?: Yes During the past 4 weeks, how would you rate your health in general?: fair During the past 4 weeks how have things been going for you?: pretty well Are you having difficulties driving your car?: not applicable, I don't use a car Do you always fasten your seat belt when you are in a car?: yes, usually During past 4 weeks, have you been bothered by the following: sometimes: Falling or dizzy when standing up Have you fallen 2 or more times in the past year?: No Are you afraid of falling?: No Are you a smoker?: no During the past 4 weeks, how many drinks of wine, beer, or other alcoholic beverages did you have?: no alcohol at all Do you exercise for about 20 minutes 3 or more times a week?: no, I usually do not exercise this much Have you been given information to help with the following?: yes: Keeping track of your medications? and no: Hazards in your house that might hurt you? How often do you have trouble taking medicines the way you have been told to take them?: I always take medicine as prescribed How confident are you that you can control & manage most of your health problems?: somewhat confident What is your race?: White Mini Mental State Exam (MMSE) Orientation What is the (year) (season) (date) (day) (month)?: year (2023), season (Spring), date (08/12/2023), day (Tuesday) and month (July) Where are we (state) (county) (town or city) (hospital) (floor)?: state ([place]), county ([place]), town or city ([place]) and hospital/clinic ([facility]) Score Score: 9 Activity of Daily Living Bathing - sponge bath, tub bath or shower: receives no assistance (gets in/out by self, if usual bathing means Toileting - going to the 'toilet room' for urine/bowel elimination & cleaning self/arranging clothes: goes to toilet room, cleans self, arranges clothes without help Transfer: moves in & out of bed and chair without help (may use support object) Continence: has occasional 'accidents' Feeding: feeds self without help Total Score: 0 Information obtained from: patient Using telephone: independent Traveling: dependent Shopping: needs assistance Preparing meals: independent Housework: needs assistance Taking medicine: independent Managing money: independent PHQ-9 Over the last 2 weeks, how often have you been bothered by any of the following problems? 1. Little interest or pleasure in doing things: several days 2. Feeling down, depressed, or hopeless: not at all 3. Trouble falling or staying asleep, or sleeping too much: several days 4. Feeling tired or having little energy: not at all 5. Poor appetite or overeating: several days 6. Feeling bad about yourself - or that you are a failure or have let yourself or your family down: not at all 7. Trouble concentrating on things, such as reading the newspaper or watching television: not at all 8. Moving or speaking so slowly that other people could have noticed. Or the opposite - being so fidgety or restless that you have been moving around a lot more than usual: not at all 9. Thoughts that you would be better off or of hurting yourself in some way: not at all Total score: 3 Depression Screening Interpretation: Negative Depression Screening Done: Yes Source: Developed by Drs. Dg Louis, Joyce Saez, Gigi Gaytan and colleagues, with an educational bao from [employer]. KIRA-7 AMB Questionnaire KIRA-7 Date KIRA - 7 assessed: 08/12/23 Feeling nervous, anxious, or on edge: 0 = Not at all Not being able to stop or control worryin = Not at all Worrying too much about different things: 2 = More than half the days Trouble relaxin = Several days Being so restless that it is hard to sit still: 1 = Several days Becoming easily annoyed or irritable: 0 = Not at all Feeling afraid as if something awful might happen: 0 = Not at all Total KIRA-7 score (0-4 normal; 5-9 mild; 10-14 moderate; 15-21 severe): 4 Source: Developed by Drs. Dg Louis, Joyce Saez, Gigi Gaytan and colleagues, with an educational bao from [employer]. KIRA-7 Assessment Billing KIRA-7 Assessment Tool: KIRA-7 Assessment 20734 Physical Exam Vital Signs: Last Vital Signs Pulse 88 08/12/23 09:05 BP 134/90 H 08/12/23 09:05 Pulse Ox 98 08/12/23 09:05 Oxygen Delivery Method Room Air 08/12/23 09:05 BMI result Body Mass Index 31.8 Assessment & Plan Assessment & Plan (1) Encounter for initial annual wellness visit (AWV) in Medicare patient: Code(s): Z00.00 - Encounter for general adult medical examination without abnormal findings Plan: Medical checklist discussed with patient, completed and updated. Copy given (2) Lumbar back pain with radiculopathy affecting left lower extremity: Code(s): M54.16 - Radiculopathy, lumbar region Plan: Back pain improved since starting gabapentin 100 mg 1 tablet twice a day, will increase dose to 1 tablet every 8 hours. Patient aware of side effects of medication (3) Osteoporosis: Code(s): M81.0 - Age-related osteoporosis without current pathological fracture Plan: Declined further testing, reinforced importance of following a diet rich in calcium as well as taking vitamin-D 3 supplements at least 2000 units daily. Stressed importance as well of doing regular weight-bearing exercise. (4) Paroxysmal atrial fibrillation: Code(s): I48.0 - Paroxysmal atrial fibrillation Plan: Currently on metoprolol succinate ER 75 mg daily (5) COPD (chronic obstructive pulmonary disease): Comment: MILD TO MODERATE CHRONIC OBSTRUCTIVE PULMONARY DISEASE. STABLE AND CONTROLLED WITH THE CURRENT MEDS. Code(s): J44.9 - Chronic obstructive pulmonary disease, unspecified Plan: Followed by Pulmonary, currently on Pulmicort, Serevent, and uses Ventolin inhaler as needed for episodes of bronchospasm. (6) Allergic rhinitis: Comment: Chronic , controlled with meds . Code(s): J30.9 - Allergic rhinitis, unspecified Plan: Using fluticasone nasal spray as needed (7) Anxiety disorder: Code(s): F41.9 - Anxiety disorder, unspecified Qualifiers: Anxiety disorder type: generalized anxiety disorder Qualified Code(s): F41.1 - Generalized anxiety disorder Plan: Currently on duloxetine and Takes alprazolam as needed does not want to start any maintenance medication at present time, afraid of this possible side effects (8) Type 2 diabetes mellitus without complication, without long-term current use of insulin: Code(s): E11.9 - Type 2 diabetes mellitus without complications Plan: Continued on sitagliptin-metformin 50-500 mg tablet taken twice a day, (9) Hyperlipidemia: Code(s): E78.5 - Hyperlipidemia, unspecified Qualifiers: Hyperlipidemia type: pure hypercholesterolemia Qualified Code(s): E78.00 - Pure hypercholesterolemia, unspecified Plan: Currently on rosuvastatin 20 mg daily (10) Hypertension: Code(s): I10 - Essential (primary) hypertension Qualifiers: Hypertension type: essential hypertension Qualified Code(s): I10 - Essential (primary) hypertension Plan: Continue with losartan 50 mg daily and metoprolol succinate ER 75 mg 1 once a day (11) Seasonal allergies: Code(s): J30.2 - Other seasonal allergic rhinitis Plan: Currently on montelukast (12) Advanced directives, counseling/discussion: Code(s): Z71.89 - Other specified counseling Plan: Initiated the conversation about Advanced Directives. Advanced Directives help patients prepare for current and future decisions about their medical treatment and place of care. Discussed with patient that it is a process where a patients current condition and prognosis are reviewed, their wishes for information regarding their illness are elicited, and likely medical dilemmas are presented and options discussed. MOLST form already completed in the past, healthcare proxy form completed today. The form can be amended as needed, reviewed yearly and make changes as needed (13) GERD (gastroesophageal reflux disease): Code(s): K21.9 - Gastro-esophageal reflux disease without esophagitis Plan: On pantoprazole 40 mg daily (14) Gout: Code(s): M10.9 - Gout, unspecified Plan: On allopurinol 100 mg once daily Medications: Changed From gabapentin (Neurontin) 100 mg PO BID 60 caps 5RF To gabapentin (Neurontin) 100 mg PO Q8H 90 caps 5RF Quality Reporting (2019) Depression/Bipolar (159/160/161/177) PHQ-9: Total score: 3 Coding Level of Care Code Medicare First (G0438) Diagnoses Encounter for initial annual wellness visit (AWV) in Medicare patient Z00.00 Lumbar back pain with radiculopathy affecting left lower extremity M54.16 Osteoporosis M81.0 Paroxysmal atrial fibrillation I48.0 COPD (chronic obstructive pulmonary disease) J44.9 Allergic rhinitis J30.9 Generalized anxiety disorder F41.1 Anxiety disorder type: generalized anxiety disorder Type 2 diabetes mellitus without complication, without long-term current use of insulin E11.9 Pure hypercholesterolemia E78.00 Hyperlipidemia type: pure hypercholesterolemia Essential hypertension I10 Hypertension type: essential hypertension Seasonal allergies J30.2 Advanced directives, counseling/discussion Z71.89 GERD (gastroesophageal reflux disease) K21.9 Gout M10.9 Additional Codes KIRA-7 Assessment Billing - KIRA-7 Assessment Tool: KIRA-7 Assessment [id number] ([id number])
== END 2023-08-12 09:54 | disposition home or self-care (01) ==
PROVIDERS: PCP Internal Medicine; Visit Provider Internal Medicine
DX: Z00.00 Encounter for general adult medical examination without abnormal findings (principal); I48.0 Paroxysmal atrial fibrillation; J44.9 Chronic obstructive pulmonary disease, unspecified; E11.9 Type 2 diabetes mellitus without complications; M54.16 Radiculopathy, lumbar region; M81.0 Age-related osteoporosis without current pathological fracture; J30.9 Allergic rhinitis, unspecified; F41.1 Generalized anxiety disorder; E78.00 Pure hypercholesterolemia, unspecified; I10 Essential (primary) hypertension; J30.2 Other seasonal allergic rhinitis; Z71.89 Other specified counseling
CPT/HCPCS: G0438; G0439

== ENCOUNTER 2023-11-28 08:09 | Outpatient (AMB) | payer MEDICARE, MEDICAID, SELFPAY ==
--- NOTE | 2023-11-28 08:12 | MHC.OFFWIV ---
Intake Vital Signs 11/28/23 08:13 Height 5 ft BMI Reason not done Patient refused/unable BP 136/88 Blood Pressure Location Rt brachial Position Sitting Pulse 85 Pulse Source Pulse Oximeter Temp 98.1 F Temp Source Oral Pulse Oximetry (%) 100 Oxygen Delivery Method Room Air Intake Visit Reasons: EP ?Upper respiratory (COPD) Intake Note: Pt states she been having on going respiratory, pt states she has sever copd. Pt mentioned when she was using her nebulizer it felt like she was choking. Patient Tobacco Use Status: Former Tobacco user Allergies Penicillins [PENICILLINS] Allergy (Intermediate, Verified 11/28/23 08:22) rash meperidine [Demerol] Allergy (Unknown, Verified 11/28/23 08:22) Nausea and Vomiting oxycodone Allergy (Unknown, Verified 11/28/23 08:22) Nausea and Vomiting Sulfa (Sulfonamide Antibiotics) [SULFA (SULFONAMIDE ANTIBIOTICS)] Allergy (Unknown, Verified 11/28/23 08:22) NAUSEA & VOMITING, GI upset warfarin [WARFARIN] Adverse Reaction (Severe, Verified 11/28/23 08:22) UNKNOWN aspirin [ASPIRIN] Adverse Reaction (Mild, Verified 11/28/23 08:22) gi bleed enoxaparin [From LOVENOX] Adverse Reaction (Unknown, Verified 11/28/23 08:22) INTERNAL BLEEDING heparin [HEPARIN] Adverse Reaction (Unknown, Verified 11/28/23 08:22) INTERNAL BLEEDING ibuprofen Adverse Reaction (Unknown, Verified 11/28/23 08:22) GI bleed Chocolate Adverse Reaction (Verified 11/28/23 08:22) Diarrhea Do you need a note to return to daycare/school/sports/work: No HPI EP ?Upper respiratory (COPD) HPI Details This note is constructed using voice recognition software. While every effort has been made to ensure accuracy, site promotion agent errors may have been included. The patient is a 83 year old female with history of severe COPD who presents to the clinic today with concern for COPD exacerbation. She notes that she has been dealing with upper respiratory symptoms for the last 3 weeks, has been using her nebulizer, however it does not seem to be getting any better. In the last 2 days the secretions have become more thick and were copious, and more difficult to deal with. She reports that in the past she has been treated for COPD exacerbation with the Z-Deondre, but it tends not to work and she tends to have to come back a 2nd time for repeat evaluation. When she comes for repeat evaluation she gets a 7 day antibiotic which seems to work better to resolve the symptoms. She requested we are going to treat her with antibiotics that we selected a 7 day treatment. Patient requests prescription for medication for yeast infection as she typically gets the yeast infection with antibiotics. She notes that she has done the 7 day Monistat and it does not tend to work.. 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) GERD (gastroesophageal reflux disease) Deep vein thrombosis (DVT) of left lower extremity Gout Anxiety disorder Type 2 diabetes mellitus without complication, without long-term current use of insulin Hyperlipidemia Hypertension Surgical History H/O local excision of skin lesion Family History Mother Mental health disorder Sister CVA (cerebral vascular accident) Daughter Brain tumor Diabetes Bipolar 1 disorder Heart abnormality Mental illness in member of household Mental health disorder Father Substance use disorder Son Mental health disorder Social History Household Members: Family Housing: House Do you presently have visiting nurse or other home services: No Alcohol intake: former Patient Tobacco Use Status: Former Tobacco user Years Smoked: 10 yrs e-Cigarette/Vaping Use: Never Used Second Hand Smoke Exposure: No Advance Directives Date on File: 07/27/21 service: No Current occupational status: retired Cognitive needs: No Hearing needs: No Vision needs: Yes Review of Systems Const All systems reviewed & are unremarkable except as noted in HPI and below Physical Exam Vital Signs: Last Vital Signs Temp 98.1 F 11/28/23 08:13 Pulse 85 11/28/23 08:13 BP 136/88 11/28/23 08:13 Pulse Ox 100 11/28/23 08:13 Oxygen Delivery Method Room Air 11/28/23 08:13 Const General: cooperative, healthy appearing, comfortable and no acute distress Orientation/consciousness: patient oriented x3 Limitations: no limitations HEENT Head: Yes normal to inspection Ears: hearing grossly normal bilaterally, external ears normal and TM's normal bilaterally General nose exam: Normal external nose present, Normal nares present and No nasal discharge present Face and sinus: Yes normal facial exam and Yes sinuses nontender Mouth: Normal oral and palatal mucosa present and moist mucous membranes Throat: Yes posterior oropharynx normal, Yes tonsils normal and Yes uvula midline Eyes General: appearance normal, both eyes and all related structures Neck Neck: Yes normal visual inspection Resp Effort & Inspection: normal respiratory effort, able to speak in complete sentences, Actively coughing, no respiratory distress, not tachypneic, no tripod positioning and no use of accessory muscles Auscultation: diminished lung sounds (throughout) Cardio Jugular venous distension: no JVD Rate: regular rate Rhythm: regular rhythm Heart sounds: S1 normal heart sound present, S2 normal heart sound present, no click, no gallops, no murmurs and no rubs Skin General skin exam: no rashes or lesions noted, elasticity normal and turgor normal Neuro General: patient oriented x3 Extrem General: Yes normal to inspection and Yes no clubbing, cyanosis or edema Assessment & Plan Assessment & Plan (1) COPD (chronic obstructive pulmonary disease): Comment: MILD TO MODERATE CHRONIC OBSTRUCTIVE PULMONARY DISEASE. STABLE AND CONTROLLED WITH THE CURRENT MEDS. Code(s): J44.9 - Chronic obstructive pulmonary disease, unspecified Qualifiers: COPD type: COPD with acute exacerbation Qualified Code(s): J44.1 - Chronic obstructive pulmonary disease with (acute) exacerbation Plan: See also exacerbation. (2) COPD exacerbation: Code(s): J44.1 - Chronic obstructive pulmonary disease with (acute) exacerbation Plan: Reviewed most recent note with PCP. Given patient's current presentation as well as her history of exacerbation, we will prescribe levofloxacin 500 mg daily for 7 days as this has been effective for her in the past. Advised patient to continue use of nebulizer treatment and follow up with primary care provider. She should seek emergent treatment with any worsening of symptoms such as dyspnea at rest. Plan See above for full details and plan. Fluconazole sent for patient request for yeast infection. Advised patient to follow up with primary under care provider with repeat symptoms. Medications: New fluconazole Take with symptoms of yeast infection 150 mg PO DAILY 1 tab 0RF levofloxacin 500 mg PO DAILY 7 tabs 0RF Coding Level of Care Code Est Pt Level 4 (05598) Diagnoses Chronic obstructive pulmonary disease with acute exacerbation J44.1 COPD type: COPD with acute exacerbation COPD exacerbation J44.1
[2023-11-28 08:13] VITALS: BP 136/88; PULSE 85; TEMP 36.7; O2SAT 100
== END 2023-11-28 09:05 | disposition home or self-care (01) ==
PROVIDERS: PCP Internal Medicine; Visit Provider Registered Nurse
DX: J44.1 Chronic obstructive pulmonary disease with (acute) exacerbation (principal)
CPT/HCPCS: 99214

== ENCOUNTER 2023-12-20 11:07 | Outpatient (REF) | payer MEDICARE, MEDICAID, SELFPAY ==
[2023-12-20 13:22] LABS: Appearance Urine Clear; Color Urine Yellow; Glucose Urine UA Negative (Negative); Leukocyte Esterase Urine Trace (Negative); Nitrite Urine Negative (Negative); Specific Gravity - Urine 1.015 (1.005-1.025); UMIC TRIGGER UACC YES; Urine Blood Negative (Negative); Urine Ketones Negative (Negative); Urine Protein Negative (Neg-Trace)
[2023-12-20 13:26] LABS: MANUAL DIFF FLAG NO
[2023-12-20 13:28] LABS: Bacteria Urine None Seen (None Seen); Hyaline Casts Urine 0-2 /LPF (0-2); RBC Urine 0-2 /HPF (0-2); Squamous Epithelial Cell Urine 0-2 /HPF (0-2); WBC Urine 0-5 /HPF (0-5)
[2023-12-20 13:33] LABS: Basophils Percent Auto 0.4 % (0-2); Eosinophils Absolute Auto 0.3 X10*3/uL (0.0-0.4); Eosinophils Percent Auto 2.7 % (0-4); Hematocrit 36.1 % (37.0-47.0); Hemoglobin 11.9 g/dl (12.0-16.0); Imm Gran Abs Auto 0.03 X10*3/uL (0.00-0.03); Imm Gran Pct Auto 0.3 % (0.0-0.4); Lymphocytes Absolute Auto 2.9 X10*3/uL (1.2-4.9); Lymphocytes Percent Auto 31.5 % (20-40); Mean Corpuscular Hemoglobin 28.5 pg (27.0-33.0); Mean Corpuscular Volume 86.6 fL (80.0-98.0); Mean Platelet Volume 10.9 fL (9.4-12.3); Monocytes Absolute Auto 0.8 X10*3/uL (0.1-1.2); Monocytes Percent Auto 8.7 % (2-11); Neutrophils Absolute Auto 5.1 x10*3/uL (2.0-8.3); Neutrophils Percent Auto 56.4 % (45-73); Platelet Count 295 X10*3/uL (160-400); Red Blood Count 4.17 X10*6/uL (4.20-5.50); Red Cell Distribution Width 17.6 % (11.0-16.0); White Blood Count 9.1 X10*3/uL (4.8-10.8)
[2023-12-20 13:42] LABS: Estimated Average Glucose 140 mg/dL; Hemoglobin A1C 148.3331 umol/L; Hemoglobin A1c % 6.5 % (<6.0)
[2023-12-20 13:58] LABS: Creatinine Urine 64.93 mg/dL; Microalbum/Creatinine Ratio Ur 75.4 ug/mg cr (<30)
[2023-12-20 14:07] LABS: Alanine Aminotransferase 14 U/L (0-31); Albumin Level 4.3 g/dL (3.5-5.0); Alkaline Phosphatase 72 U/L (39-117); Anion Gap 15 (12-20); Aspartate Amino Transferase 17 U/L (5-31); Bilirubin Total 0.4 mg/dL (0.0-1.0); Blood Urea Nitrogen 17 mg/dL (9-16); Carbon Dioxide 26 mmol/L (22-29); Chloride 105 mmol/L (96-108); Cholesterol 186 mg/dL (<200); Estimated Glomerular Filt Rate > 60; Glucose Fasting 135 mg/dL (60-99); HDL Cholesterol 49 mg/dL (>40); LDL Cholesterol Calculated 107 mg/dL (<100); Potassium 3.5 mmol/L (3.3-5.1); Sodium 142 mmol/L (135-145); TSH reflex Free T4 1.62 uIU/mL (0.32-4.0); Total Protein 7.8 g/dL (6.5-8.0); Triglycerides 152 mg/dL (<150)
== END 2023-12-20 11:08 | disposition home or self-care (01) ==
LOC: HO.HMGCLDS 11:07
PROVIDERS: PCP Internal Medicine; Visit Provider Nurse Practitioner Family
DX: E11.9 Type 2 diabetes mellitus without complications (principal)
CPT/HCPCS: 36415; 80053; 80061; 81001; 82043; 82570; 83036; 84443; 85025

== ENCOUNTER 2023-12-27 13:18 | Outpatient (AMB) | payer MEDICARE, MEDICAID, SELFPAY ==
[2023-12-27 13:36] VITALS: BP 138/94; PULSE 86; O2SAT 95; BMI 32.2
--- NOTE | 2023-12-27 13:36 | MHC.PC.OV ---
Vital Signs 12/27/23 13:36 Height 5 ft Weight 165 lb BMI 32.2 BP 138/94 H Blood Pressure Location Rt brachial Position Sitting Pulse 86 Pulse Source Pulse Oximeter Pulse Oximetry (%) 95 Oxygen Delivery Method Room Air Intake Visit Reasons: dm ,lipids , hyn after labs Intake Note: Pt is here today for her f/u DM,lipids,HTN and labs Allergies Penicillins [PENICILLINS] Allergy (Intermediate, Verified 01/02/24 01:50) rash meperidine [Demerol] Allergy (Unknown, Verified 01/02/24 01:50) Nausea and Vomiting oxycodone Allergy (Unknown, Verified 01/02/24 01:50) Nausea and Vomiting Sulfa (Sulfonamide Antibiotics) [SULFA (SULFONAMIDE ANTIBIOTICS)] Allergy (Unknown, Verified 01/02/24 01:50) NAUSEA & VOMITING, GI upset warfarin [WARFARIN] Adverse Reaction (Severe, Verified 01/02/24 01:50) UNKNOWN aspirin [ASPIRIN] Adverse Reaction (Mild, Verified 01/02/24 01:50) gi bleed enoxaparin [From LOVENOX] Adverse Reaction (Unknown, Verified 01/02/24 01:50) INTERNAL BLEEDING heparin [HEPARIN] Adverse Reaction (Unknown, Verified 01/02/24 01:50) INTERNAL BLEEDING ibuprofen Adverse Reaction (Unknown, Verified 01/02/24 01:50) GI bleed Chocolate Adverse Reaction (Verified 01/02/24 01:50) Diarrhea Medication List - Last Reconciled 01/02/24 by Melissa Shannon MD albuterol sulfate 2.5 mg (3 mL) inhalation Q6H PRN 30 days allopurinol 100 mg PO DAILY alprazolam 0.25 mg PO DAILY bisacodyl (Dulcolax (bisacodyl)) 5 mg PO DAILY blood-glucose meter (FreeStyle Lite Meter kit) Check blood sugar once a day as directed duloxetine 30 mg PO BID epinephrine (EpiPen) 0.3 mg (0.3 mL) IM ONCE PRN fluticasone furoate 100 mcg/actuation (Arnuity Ellipta) 1 inh inhalation DAILY 30 days fluticasone propionate 50 mcg/actuation 1 spray intranasal BID 3 months furosemide 20 mg PO QAM PRN gabapentin (Neurontin) 100 mg PO Q8H ipratropium-albuterol 0.5 mg-3 mg(2.5 mg base)/3 mL 3 mL inhalation Q6H PRN 30 days losartan 50 mg PO DAILY magnesium 400 mg PO BID metoprolol succinate ER 75 mg See Protocol PO DAILY montelukast 10 mg PO BEDTIME 90 days nebulizers As directed pantoprazole 40 mg PO DAILY Pulmicort Flexhaler 180 mcg/actuation (budesonide) 2 inhalations inhalation BID NS rosuvastatin 20 mg PO BEDTIME Serevent Diskus (salmeterol) 1 inh inhalation BID 30 days NS sitagliptin phos-metformin 50-500 mg 1 tab PO BID 90 days Ventolin HFA 90 mcg/actuation (albuterol sulfate) 2 puffs inhalation Q4-6H PRN NS Tobacco use date assessed: 12/27/23 Fall risk assessment: 2 + Falls in past year Last assessed Fall Risk: 12/27/23 Dental Screening Dental Screen Date: 12/27/23 Did you have a dental visit in the last 12 months?: No Did you have a dental problem in the last 6 months where you did not have access to dental care?: No Was dental information given to patient?: Patient declined HPI dm ,lipids , hyn after labs HPI Details 83 year old lady with history of osteoporosis with history of compression fracture of spine, has mixed stress and urge incontinence, paroxysmal atrial fibrillation, COPD, gout, seasonal allergic rhinitis, anxiety disorder, type 2 diabetes mellitus, hyperlipidemia, hypertension , here today for follow-up. She has been taking her medications as directed, but is for the most part sedentary all the time. Complains of swelling in both lower extremities especially when she puts her legs down to walk or stand for extended periods of time. Patient states that it has been swelling more , ever since her furosemide was discontinued. Blood pressure today is mildly elevated, but patient does not complain of any chest pain or lightheadedness shortness of breath or headache. She had recent fasting labs done which showed hemoglobin A1c at 6.5, with mildly elevated LDL cholesterol at 109 mg/dL, normal electrolytes and renal function, and mild anemia with hemoglobin of 11.9. 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) GERD (gastroesophageal reflux disease) Deep vein thrombosis (DVT) of left lower extremity Gout Anxiety disorder Type 2 diabetes mellitus without complication, without long-term current use of insulin Hyperlipidemia Hypertension Surgical History H/O local excision of skin lesion Family History Mother Mental health disorder Sister CVA (cerebral vascular accident) Daughter Brain tumor Diabetes Bipolar 1 disorder Heart abnormality Mental illness in member of household Mental health disorder Father Substance use disorder Son Mental health disorder Social History Household Members: Family Housing: House Do you presently have visiting nurse or other home services: No Alcohol intake: former Patient Tobacco Use Status: Former Tobacco user Years Smoked: 10 yrs e-Cigarette/Vaping Use: Never Used Second Hand Smoke Exposure: No Advance Directives Date on File: 07/27/21 service: No Current occupational status: retired Cognitive needs: No Hearing needs: No Vision needs: Yes Questionnaire PHQ-9 Over the last 2 weeks, how often have you been bothered by any of the following problems? 1. Little interest or pleasure in doing things: several days 2. Feeling down, depressed, or hopeless: several days 3. Trouble falling or staying asleep, or sleeping too much: not at all 4. Feeling tired or having little energy: several days 5. Poor appetite or overeating: several days 6. Feeling bad about yourself - or that you are a failure or have let yourself or your family down: not at all 7. Trouble concentrating on things, such as reading the newspaper or watching television: not at all 8. Moving or speaking so slowly that other people could have noticed. Or the opposite - being so fidgety or restless that you have been moving around a lot more than usual: not at all 9. Thoughts that you would be better off or of hurting yourself in some way: not at all Total score: 4 Depression Screening Interpretation: Negative Depression Screening Done: Yes 98429 - PHQ-9 Billing: Yes Source: Developed by Drs. Dg Louis, Gigi Yoo and colleagues, with an educational bao from [employer]. Thrive Questionnaire Date Thrive assessed: 12/27/23 I am a: Parent/Caregiver What is your living situation today?: I have a steady place to live Within the past 12 months, did the food you bought not last and you didn't have the money to get more?: Sometimes True Within the past 12 months, did you worry whether your food would run out before you got money to buy more?: Sometimes True Do you have trouble paying for medicines?: No Do you have trouble getting transportation to medical appointments?: No Do you have trouble paying your heating and electricity bill?: No Do you have trouble taking care of your child, family member or friend?: No Do you have trouble with day-to-day activities such as bathing, preparing meals, shopping, managing finances, etc.?: No Are you currently unemployed and looking for a job?: No Are you interested in more education?: No Please select the resources that you would like help with: Paying for medicine Currently or been in a relationship where the following occur: No concerns reported THRIVE Score: 2 AUDIT C Alcohol Use Questionnaire (AUDIT-C) 1. How often do you have a drink containing alcohol?: Never Total Score: 0 KIRA-7 AMB Questionnaire KIRA-7 Date KIRA - 7 assessed: 12/27/23 Feeling nervous, anxious, or on edge: 1 = Several days Not being able to stop or control worryin = Several days Worrying too much about different things: 1 = Several days Trouble relaxin = Several days Being so restless that it is hard to sit still: 0 = Not at all Becoming easily annoyed or irritable: 1 = Several days Feeling afraid as if something awful might happen: 0 = Not at all Total KIRA-7 score (0-4 normal; 5-9 mild; 10-14 moderate; 15-21 severe): 5 Source: Developed by Joyce Artis Kurt Kroenke and colleagues, with an educational bao from [employer]. KIRA-7 Assessment Billing KIRA-7 Assessment Tool: KIRA-7 Assessment 91332 Review of Systems Const All systems reviewed & are unremarkable except as noted in HPI and below Eyes Reports no additional complaints ENT Reports no additional complaints Card Reports as per HPI, Denies chest pain, Denies irregular heart rhythm and Denies dyspnea Resp Denies chest congestion, Denies cough and Denies dyspnea GI Reports no additional complaints Reports no additional complaints Musc Reports back pain (Chronic) Skin/Breast Reports system reviewed and no additional complaints, except as documented Neuro Reports no additional complaints Psych Reports anxiety (Currently stable controlled on present treatment) Endo Reports no additional complaints Tolu/Lymph Reports no additional complaints Aller/Immun Reports no additional complaints Physical exam (Primary Care) Vital Signs: Last Vital Signs Pulse 86 12/27/23 13:36 BP 138/94 H 12/27/23 13:36 Pulse Ox 95 12/27/23 13:36 Oxygen Delivery Method Room Air 12/27/23 13:36 BMI result Body Mass Index 32.2 Tobacco/Smoking Status: Tobacco use Status Tobacco use date assessed 12/27/23 12/27/23 13:46 Patient Tobacco Use Status Former Tobacco user 12/27/23 13:38 e-Cigarette/Vaping Use Never Used 12/27/23 13:38 PHQ-9: PHQ-9 Score PHQ-9: Total score 4 12/27/23 13:57 Depression Screening Interpretation: Negative Thrive Assessment: Date of Thrive Assessment Date Thrive assessed 12/27/23 12/27/23 13:46 Currently or been in a relationship where the following occur: No concerns reported Const Other: Alert oriented x3, no acute cardiorespiratory distress noted, accompanied by daughter Nutritional Appearance: obese Orientation/consciousness: patient oriented x3 HENMT Ears: external ears normal and TM's normal bilaterally General nose exam: Normal external nose present Face and sinus: Yes face symmetric Mouth: Normal oral and palatal mucosa present and moist mucous membranes Eyes General: appearance normal, both eyes and all related structures Neck Neck: Yes full ROM, Yes no lymphadenopathy and Yes supple Resp Effort & Inspection: normal respiratory effort and able to speak in complete sentences Auscultation: wheezes scattered wheezes Cardio Other: S1-S2 present regular rate and rhythm GI Palpation (GI): Soft to palpation, nontender, no guarding and no masses Auscultation: normal bowel sounds General: Yes no CVA tenderness Back/Spine/Pelvis Back: no CVA tenderness and No back tenderness Skin General skin exam: no rashes or lesions noted Neuro General: patient oriented x3, tone normal and moves all extremities Gait exam (Neuro): Assistive device used Extrem General: Yes full ROM, Yes no joint enlargement, Yes no calf tenderness and Yes pedal edema Psych Appearance: grossly normal and well kempt Mental Status: mental status grossly normal Speech and movement: Normal speech and movement present Affect: normal affect Attitude: cooperative Thought process: Normal thought process present Results Reviewed Results Reviewed: Name: Joyce Waddell I Age/Sex: 83/F : 1940 Unit#: [id number] Attend Dr: Christopher Corona [facility] Re12/20/23 Status: DEP REF Location: [facility] Disch: SPEC : [id number] CHRISTEL: 12/20/23 STATUS: COMP REQ : [id number] RECD: 12/20/[address]: Christopher Corona [facility] COMP: 12/20/23 ENTERED: 12/20/[address]: Melissa Shannon MD ORDERED: CBC Auto Diff Test Result Flag Reference WBC 9.1 4.8-10.8 X10*3/uL RBC 4.17 L 4.20-5.50 X10*6/uL HGB 11.9 L 12.0-16.0 g/dl HCT 36.1 L 37.0-47.0 % MCV 86.6 80.0-98.0 fL MCH 28.5 27.0-33.0 pg MCHC 33.0 31.0-35.0 g/dl RDW 17.6 H 11.0-16.0 % PLT 295 160-400 X10*3/uL MPV 10.9 9.4-12.3 fL Neut Pct Auto 56.4 45-73 % ImGran Pct Auto 0.3 0.0-0.4 % Lymp Pct Auto 31.5 20-40 % Mcintosh Pct Auto 8.7 2-11 % Eos Pct Auto 2.7 0-4 % Baso Pct Auto 0.4 0-2 % NRBC Pct Auto 0.0 0.0-0.2 /100WBC ANC Neut Abs # 5.1 2.0-8.3 x10*3/uL ImGran Abs Auto 0.03 0.00-0.03 X10*3/uL Lymph Abs Auto 2.9 1.2-4.9 X10*3/uL Mcintosh Abs Auto 0.8 0.1-1.2 X10*3/uL Eos Abs Auto 0.3 0.0-0.4 X10*3/uL Baso Abs Auto 0.0 0.0-0.2 X10*3/uL NRBC Abs Auto 0.000 0.0-0.012 X10*3/uL Name: Joyce Waddell I Age/Sex: 83/F : 1940 Unit#: [id number] Attend Dr: Christopher Corona [facility] Re12/20/23 Status: [facility] REF Location: [facility] Disch: SPEC : [id number] CHRISTEL: 12/20/23-1112 STATUS: COMP REQ : [id number] RECD: 12/20/23-[address]: Christopher Corona [facility] COMP: 12/20/23-1406 ENTERED: 12/20/23-11[address] [facility] DR: Melissa Shannon MD ORDERED: CMP Fast, Lipid Panel, TSH Rflx Test Result Flag Reference Sodium 142 135-145 mmol/L Potassium 3.5 3.3-5.1 mmol/L CL 105 96-108 mmol/L CO2 26 22-29 mmol/L Gap 15 12-20 BUN 17 H 9-16 mg/dL Creat 0.82 0.5-1.4 mg/dL EGFR > 60 NOTE: For -Malaysian individuals, multiply the result by 1.210. Chronic Kidney Disease: Estimated GFR < 60 mL/min/1.73m2 Severe Kidney Disease: Estimated GFR < 15 mL/min/1.73m2 FBS 135 H 60-99 mg/dL A fasting glucose of 126 mg/dl or greater on more than one occasion is considered diagnostic of diabetes. CA 10.0 8.4-10.2 mg/dL Total Bili 0.4 0.0-1.0 mg/dL AST (GOT) 17 5-31 U/L ALT (GPT) 14 0-31 U/L Protein, Total 7.8 6.5-8.0 g/dL Alb 4.3 3.5-5.0 g/dL Triglyceride 152 H <150 mg/dL Desirable Triglyceride: less than 150 mg/dL Borderline High Triglyceride 150-199 mg/dL High Triglyceride: 200-499 mg/dL Very High Triglyceride: greater than or equal to 5OO mg/dL Cholesterol 186 <200 mg/dL Desirable Cholesterol: less than 200 mg/dL Borderline High Cholesterol: 200-239 mg/dL High Cholesterol: greater than 239 mg/dL LDL Calculated 107 H <100 mg/dL Desirable LDL: less than 100 mg/dL Near Optimal/Above Optimal LDL: 110-129 mg/dL Borderline High LDL: 130-159 mg/dL High LDL: 160-189 mg/dL Very High LDL: greater than or equal to 190 mg/dL HDL 49 >40 mg/dL Desirable HDL: greater than 40 mg/dL Note: This HDL assay may give artificially low results in patients with liver disease. Alk Phos 72 39-117 U/L TSH 1.62 0.32-4.0 uIU/mL Laboratory Tests 12/20/23 11:13 Estimat Average Glucose 140 Hemoglobin A1c % 6.5 H Urine Creatinine 64.93 Urine Microalbumin 49.0 Microalb/Creat Ratio 75.4 H Assessment and Plan Assessment & Plan (1) Type 2 diabetes mellitus without complication, without long-term current use of insulin: Code(s): E11.9 - Type 2 diabetes mellitus without complications Plan: Diabetes mellitus stable controlled continue with with Janumet (2) Hyperlipidemia: Code(s): E78.5 - Hyperlipidemia, unspecified Qualifiers: Hyperlipidemia type: pure hypercholesterolemia Qualified Code(s): E78.00 - Pure hypercholesterolemia, unspecified Plan: Reinforced importance of following a low-cholesterol diet and getting regular exercise. (3) Hypertension: Code(s): I10 - Essential (primary) hypertension Qualifiers: Hypertension type: essential hypertension Qualified Code(s): I10 - Essential (primary) hypertension Plan: Continue with losartan 50 mg daily, metoprolol succinate 75 mg daily, added furosemide 20 mg per tablet to take once a day in a.m., only as needed for leg swelling (4) Anemia: Code(s): D64.9 - Anemia, unspecified Qualifiers: Anemia type: iron deficiency Iron deficiency anemia type: unspecified iron deficiency Qualified Code(s): D50.9 - Iron deficiency anemia, unspecified Plan: Will check iron profile and repeat CBC in 3 months (5) Anxiety disorder: Code(s): F41.9 - Anxiety disorder, unspecified Qualifiers: Anxiety disorder type: generalized anxiety disorder Qualified Code(s): F41.1 - Generalized anxiety disorder Plan: Stable on duloxetine, refills sent Orders: Orders Lipid Panel 03/25/24 D50.9 - Iron deficiency anemia, unspecified, E11.9 - Type 2 diabetes mellitus without complications, E78.00 - Pure hypercholesterolemia, unspecified, I10 - Essential (primary) hypertension IRON PROFILE 03/25/24 D50.9 - Iron deficiency anemia, unspecified, E11.9 - Type 2 diabetes mellitus without complications, E78.00 - Pure hypercholesterolemia, unspecified, I10 - Essential (primary) hypertension Hemoglobin A1c 03/25/24 D50.9 - Iron deficiency anemia, unspecified, E11.9 - Type 2 diabetes mellitus without complications, E78.00 - Pure hypercholesterolemia, unspecified, I10 - Essential (primary) hypertension Complete Blood Count Auto Diff 03/25/24 D50.9 - Iron deficiency anemia, unspecified, E11.9 - Type 2 diabetes mellitus without complications, E78.00 - Pure hypercholesterolemia, unspecified, I10 - Essential (primary) hypertension Alanine Aminotransferase 03/25/24 D50.9 - Iron deficiency anemia, unspecified, E11.9 - Type 2 diabetes mellitus without complications, E78.00 - Pure hypercholesterolemia, unspecified, I10 - Essential (primary) hypertension Aspartate Amino Transferase 03/25/24 D50.9 - Iron deficiency anemia, unspecified, E11.9 - Type 2 diabetes mellitus without complications, E78.00 - Pure hypercholesterolemia, unspecified, I10 - Essential (primary) hypertension Basic Metabolic Panel Fasting 03/25/24 D50.9 - Iron deficiency anemia, unspecified, E11.9 - Type 2 diabetes mellitus without complications, E78.00 - Pure hypercholesterolemia, unspecified, I10 - Essential (primary) hypertension Medications: New furosemide 20 mg PO QAM PRN 30 tabs 0RF edema Changed From duloxetine 30 mg PO BID 180 caps 1RF 90 days F41.9 - Anxiety disorder, unspecified To duloxetine 30 mg PO BID F41.9 - Anxiety disorder, unspecified Coding Level of Care Code Est Pt Level 4 (03839) Complex EM visit Add On G2211 Diagnoses Type 2 diabetes mellitus without complication, without long-term current use of insulin E11.9 Pure hypercholesterolemia E78.00 Hyperlipidemia type: pure hypercholesterolemia Essential hypertension I10 Hypertension type: essential hypertension Iron deficiency anemia, unspecified iron deficiency anemia type D50.9 Anemia type: iron deficiency Iron deficiency anemia type: unspecified iron deficiency Generalized anxiety disorder F41.1 Anxiety disorder type: generalized anxiety disorder Additional Codes KIRA-7 Assessment Billing - KIRA-7 Assessment Tool: KIRA-7 Assessment 32131 ([id number])
== END 2023-12-27 14:17 | disposition home or self-care (01) ==
PROVIDERS: PCP Internal Medicine; Visit Provider Internal Medicine
DX: E11.9 Type 2 diabetes mellitus without complications (principal); E78.00 Pure hypercholesterolemia, unspecified; I10 Essential (primary) hypertension; D50.9 Iron deficiency anemia, unspecified; F41.1 Generalized anxiety disorder
CPT/HCPCS: 99214; G2211

== ENCOUNTER 2024-01-05 13:37 | Outpatient (AMB) | payer MEDICARE, MEDICAID, SELFPAY ==
[2024-01-05 13:54] VITALS: BP 132/90; PULSE 90; O2SAT 97; BMI 34.3
--- NOTE | 2024-01-05 13:54 | A.OFFVIS_ITS ---
Vital Signs 01/05/24 13:54 Height 4 ft 10 in Weight 164 lb 3.91 oz BMI 34.3 BP 132/90 H Blood Pressure Location Lt brachial Position Sitting Pulse 90 Pulse Source Pulse Oximeter Pulse Oximetry (%) 97 Oxygen Delivery Method Room Air Intake Visit Reasons: COPD Intake Note: pt is here for follow up and has a lot going on, she just had covid, and having some shortness of breath, and should she have the RSV. please explain how to take arnuity with serevent. [facility]iatric [facility]le Specialist Required: No Allergies Penicillins [PENICILLINS] Allergy (Intermediate, Verified 01/05/24 14:09) rash meperidine [Demerol] Allergy (Unknown, Verified 01/05/24 14:09) Nausea and Vomiting oxycodone Allergy (Unknown, Verified 01/05/24 14:09) Nausea and Vomiting Sulfa (Sulfonamide Antibiotics) [SULFA (SULFONAMIDE ANTIBIOTICS)] Allergy (Unknown, Verified 01/05/24 14:09) NAUSEA & VOMITING, GI upset warfarin [WARFARIN] Adverse Reaction (Severe, Verified 01/05/24 14:09) UNKNOWN aspirin [ASPIRIN] Adverse Reaction (Mild, Verified 01/05/24 14:09) gi bleed enoxaparin [From LOVENOX] Adverse Reaction (Unknown, Verified 01/05/24 14:09) INTERNAL BLEEDING heparin [HEPARIN] Adverse Reaction (Unknown, Verified 01/05/24 14:09) INTERNAL BLEEDING ibuprofen Adverse Reaction (Unknown, Verified 01/05/24 14:09) GI bleed Chocolate Adverse Reaction (Verified 01/05/24 14:09) Diarrhea Medication List - Last Reconciled 01/05/24 by Taryn Meade MD albuterol sulfate 2.5 mg (3 mL) inhalation Q6H PRN 30 days allopurinol 100 mg PO DAILY alprazolam 0.25 mg PO DAILY bisacodyl (Dulcolax (bisacodyl)) 5 mg PO DAILY blood-glucose meter (FreeStyle Lite Meter kit) Check blood sugar once a day as directed duloxetine 30 mg PO BID epinephrine (EpiPen) 0.3 mg (0.3 mL) IM ONCE PRN fluticasone furoate 100 mcg/actuation (Arnuity Ellipta) 1 inh inhalation DAILY 30 days fluticasone propionate 50 mcg/actuation 1 spray intranasal BID 3 months furosemide 20 mg PO QAM PRN gabapentin (Neurontin) 100 mg PO Q8H ipratropium-albuterol 0.5 mg-3 mg(2.5 mg base)/3 mL 3 mL inhalation Q6H PRN 30 days losartan 50 mg PO DAILY magnesium 400 mg PO BID metoprolol succinate ER 75 mg See Protocol PO DAILY montelukast 10 mg PO BEDTIME 90 days nebulizers As directed pantoprazole 40 mg PO DAILY rosuvastatin 20 mg PO BEDTIME Serevent Diskus (salmeterol) 1 inh inhalation BID 30 days NS sitagliptin phos-metformin 50-500 mg 1 tab PO BID 90 days Ventolin HFA 90 mcg/actuation (albuterol sulfate) 2 puffs inhalation Q4-6H PRN NS Do you need a note to return to daycare/school/sports/work: No HPI HPI COPD: Details: AISHA IS 83 YEARS OLD FEMALE, WITH CHRONIC OBSTRUCTIVE PULMONARY DISEASE, CHRONIC CARDIAC DISEASE( CHF ) ALLERGIC RHINITIS AND MULTIPLE OTHER COMORBIDITIES. SHE COMES IN TODAY FOR HER ROUTINE FOLLOW-UP BUT STATES THAT IN THE LAST 2 WEEKS SHE HAS BEEN TREATED FOR COVID 19 . SHE DID NOT REQUIRE HOSPITALIZATION. TREATED HERSELF SYMPTOMATICALLY AT HOME. SHE STILL HAS RESIDUAL GENERALIZED WEAKNESS. HAS FREQUENT BOUTS OF COUGH NOT MUCH EXPECTORATION. SHE GETS SHORT OF BREATH IF SHE WALKS AROUND BUT SHE DOES NOT DO THAT MUCH ANYWAY. SHE CAME TO THE OFFICE WALKING WITH A CANE, AND WITHOUT ANY ASSISTANCE OTHERWISE. 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) GERD (gastroesophageal reflux disease) Deep vein thrombosis (DVT) of left lower extremity Gout Anxiety disorder Type 2 diabetes mellitus without complication, without long-term current use of insulin Hyperlipidemia Hypertension Surgical History H/O local excision of skin lesion Family History Mother Mental health disorder Sister CVA (cerebral vascular accident) Daughter Brain tumor Diabetes Bipolar 1 disorder Heart abnormality Mental illness in member of household Mental health disorder Father Substance use disorder Son Mental health disorder Social History Household Members: Family Housing: House Do you presently have visiting nurse or other home services: No Alcohol intake: former Patient Tobacco Use Status: Former Tobacco user Years Smoked: 10 yrs e-Cigarette/Vaping Use: Never Used Second Hand Smoke Exposure: No Advance Directives Date on File: 07/27/21 service: No Current occupational status: retired Cognitive needs: No Hearing needs: No Vision needs: Yes Review of Systems Const All systems reviewed & are unremarkable except as noted in HPI and below Eyes Reports no additional complaints ENT Reports nasal congestion and Reports nasal discharge Card Denies chest pain, Denies irregular heart rhythm and Denies leg edema Resp Reports as per HPI GI Reports no additional complaints Reports no additional complaints Musc Reports back pain (Chronic) and Reports muscle weakness Skin/Breast Reports system reviewed and no additional complaints, except as documented Neuro Reports no additional complaints Psych Reports depression (Controlled) Physical Exam Vital Signs: Last Vital Signs Pulse 90 01/05/24 13:54 BP 132/90 H 01/05/24 13:54 Pulse Ox 97 01/05/24 13:54 Oxygen Delivery Method Room Air 01/05/24 13:54 BMI result Body Mass Index 34.3 Const General: comfortable (BUT SOMEWHAT WEAK), no acute distress, alert and awake Orientation/consciousness: patient oriented x3 HEENT Head: Yes normal to inspection General nose exam: No nasal polyps present, No nasal discharge present and Other nasal findings present (Chronic nasal congestion , mild ) Face and sinus: Yes sinuses nontender Mouth: oropharynx normal Throat: Yes posterior oropharynx normal Eyes General: appearance normal, both eyes and all related structures Neck Neck: Yes normal visual inspection, Yes no lymphadenopathy, Yes trachea midline and Yes no JVD Thyroid: Thyroid normal Chest Chest palpation & inspection: normal inspection of the chest, normal palpation of entire chest wall and no tenderness Resp Other: Breath sounds are distant on both sides with prolonged expiratory phase. On auscultation there are no wheezes or rhonchi this time. Cardio Palpation: normal PMI Rate: regular rate Rhythm: regular rhythm Heart sounds: no gallops and no murmurs GI Palpation (GI): Soft to palpation, nontender, No hepatosplenomegaly present and no masses Auscultation: normal bowel sounds Back/Spine/Pelvis Thoracic/Lumbar Spine: thoracic and lumbar spine normal to inspection and thoraco-lumbar ROM limited Skin General skin exam: no rashes or lesions noted Neuro General: patient oriented x3 and no focal motor deficits Cranial nerves: Yes CN's II-XII intact bilaterally Extrem General: Yes normal to inspection, Yes no clubbing, cyanosis or edema and Yes no calf tenderness Psych Appearance: grossly normal and well kempt Speech and movement: Normal speech and movement present Assessment & Plan Assessment & Plan (1) COPD (chronic obstructive pulmonary disease): Comment: MILD TO MODERATE CHRONIC OBSTRUCTIVE PULMONARY DISEASE. STABLE AND CONTROLLED WITH THE CURRENT MEDS. HAS SLIGHTLY INCREASED DYSPNEA BECAUSE OF HER RECENT RESPIRATORY INFECTION ( COVID-19 TESTED POSITIVE AT HOME) SHE HAS RECOVERED FROM THIS HOWEVER STILL HAS SOME RESIDUAL GENERALIZED WEAKNESS Code(s): J44.9 - Chronic obstructive pulmonary disease, unspecified Category: Medical Qualifiers: COPD type: COPD with acute exacerbation Qualified Code(s): J44.1 - Chronic obstructive pulmonary disease with (acute) exacerbation Plan: ARNUITY-100 1 INHALATION DAILY. THIS IS IN PLACE OF PULMICORT FLEXHALER SEREVENT DISKUS-50 1 INHALATION B.I.D.. IPRATROPIUM-ALBUTEROL SOLUTION IN THE NEBULIZER Q 6 HOURS P.R.N. VENTOLIN HFA 2 PUFFS Q 4-6 HOURS P.R.N. WHEN OUTDOORS. * SHE WAS ASKING ABOUT RSV VACCINATION I SUGGESTED THAT SHE SHOULD HAVE RSV VACCINE BEFORE THE END OF THE YEAR AND SHE SHOULD ALSO HAVE ANNUAL FLU SHOT . (2) Allergic rhinitis: Comment: Chronic , controlled with meds . Code(s): J30.9 - Allergic rhinitis, unspecified Category: Medical Plan: CONTINUE MONTELUKAST 10 MG DAILY. AND FLONASE-51 SPRAY IN EACH NOSTRIL B.I.D. Medications: Refilled ipratropium-albuterol 0.5 mg-3 mg(2.5 mg base)/3 mL 3 mL inhalation Q6H 30 days PRN 180 mL 3RF wheezing/SOB J44.9 - Chronic obstructive pulmonary disease, unspecified Coding Level of Care Code Est Pt Level 3 (36226) Diagnoses Chronic obstructive pulmonary disease with acute exacerbation J44.1 COPD type: COPD with acute exacerbation Allergic rhinitis J30.9
== END 2024-01-05 14:22 | disposition home or self-care (01) ==
PROVIDERS: PCP Internal Medicine; Visit Provider Internal Medicine
DX: J44.1 Chronic obstructive pulmonary disease with (acute) exacerbation (principal); J30.9 Allergic rhinitis, unspecified
CPT/HCPCS: 99213

== ENCOUNTER → 2024-01-05 13:37 | Outpatient (BNVA) | payer MEDICARE, MEDICAID, SELFPAY | PROVIDERS: PCP Internal Medicine; Visit Provider Internal Medicine | DX: J44.1 Chronic obstructive pulmonary disease with (acute) exacerbation (principal); R06.00 Dyspnea, unspecified; U09.9 Post COVID-19 condition, unspecified; J30.9 Allergic rhinitis, unspecified | CPT/HCPCS: 99212 ==

== ENCOUNTER 2024-03-08 04:52 | Emergency (ER) | payer MEDICARE, MEDICAID, SELFPAY ==
[2024-03-08] VITALS (8 sets, daily range): BP systolic 168–176; BP diastolic 78–100; PULSE 62–116; RESP 14–30; TEMP 36.7–36.9; O2SAT 95–98; BMI 36.9
--- NOTE | 2024-03-08 | ECG_ITS ---
Test Reason : fall Blood Pressure : / mmHG Vent. Rate : 076 BPM Atrial Rate : 076 BPM P-R Int : 156 ms QRS Dur : 116 ms QT Int : 416 ms P-R-T Axes : 030 -25 -07 degrees QTc Int : 468 ms Normal sinus rhythm Incomplete right bundle branch block Borderline ECG When compared with ECG of 25-SEP-2022 14:46, Nonspecific T wave abnormality no longer evident in Anterior leads Referred By: Generic ED Physician Electronically Signed By:Nate Alexander
--- NOTE | ~2024-03-08 | CT_ITS ---
EXAMINATION: CT HEAD WITHOUT CONTRAST CLINICAL INFORMATION: Fall, head injury, headache rule out fracture, ble COMPARISON: CT dated October 29, 2022. TECHNIQUE: Contiguous axial imaging was performed from the skull base to vertex without intravenous administration of contrast. This CT examination was performed using dose optimization techniques as appropriate, variously including the following: *Automated exposure control *Adjustment of mA and/or kV according to patient size (this includes techniques or standardized protocols for targeted exams where dose is matched to indication/reason for exam; i.e. extremities or head) *Use of iterative reconstruction technique DLP: 737 mGy-cm FINDINGS: No acute intracranial hemorrhage, mass effect, midline shift, hydrocephalus or herniation. Park-white matter differentiation is normal. Old lacunar infarcts, basal ganglia. Posterior cranial fossa contents demonstrated no acute intracranial hemorrhage or mass effect. Calcified plaques in the V4 segments of the vertebral arteries and cavernous supracavernous segments both ICA. Bony calvarium is intact. Skull base is intact. No air-fluid levels in the included paranasal sinuses with poor pneumatization right frontal sinus. Tympanic cavities and mastoid cells are aerated. CT/CT head/brain wo IV con IMPRESSION: No acute intracranial hemorrhage. No acute fracture, bony calvarium. Small vessel occlusive disease. Atherosclerosis disease. Electronically signed by: Leno Tom MD 03/08/2024 11:52 AM EST
--- NOTE | ~2024-03-08 | XR_ITS ---
EXAMINATION: XR HUMERUS, RIGHT CLINICAL INFORMATION: Pain, deformity. COMPARISON: None available. TECHNIQUE: AP and lateral views of the right humerus. FINDINGS: -There is a spiral fracture of the distal humeral metadiaphysis. No significant bayoneting or override. There is approximately 1.1 cm anterior displacement, and 0.9 cm lateral displacement of the distal fracture fragment. -There is osteopenia. There are severe, end-stage degenerative changes of the right shoulder and AC joints. -There is soft tissue swelling about the distal humerus. No subcutaneous emphysema noted. XR/XR humerus RT IMPRESSION: 1. Spiral displaced fracture of the distal humeral metadiaphysis as detailed. 2. Osteopenia. 3. 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 Electronically signed by: Fran Jean Baptiste MD 03/08/2024 08:31 AM SHE[facility]
--- NOTE | ~2024-03-08 | XR_ITS ---
EXAMINATION: XR FOOT, LEFT CLINICAL INFORMATION: Status post fall. COMPARISON: None available. TECHNIQUE: AP, lateral, and oblique views of the left foot. FINDINGS: Cortical disruption distal diaphysis of the fifth metatarsal. Osteopenia versus osteoporosis. XR/XR foot LT min 3V IMPRESSION: Acute fracture distal diaphysis fifth metatarsal left foot. Positive exam. Electronically signed by: Leno Tom MD 03/08/2024 01:00 PM SHE[facility]
--- NOTE | ~2024-03-08 | XR_ITS ---
EXAMINATION: XR ANKLE, LEFT CLINICAL INFORMATION: Status post fall COMPARISON: Correlated to the left foot x-ray TECHNIQUE: AP, , and mortise views of the left ankle. FINDINGS: No acute cortical disruption or malalignment. Osteopenia versus osteoporosis. Cortical irregularity distal diaphysis of the fifth metatarsal. XR/XR ankle LT min 3V IMPRESSION: No acute fracture or dislocation, left ankle. Recommend dedicated left foot x-ray to evaluate the fifth metatarsal. Electronically signed by: Leno Tom MD 03/08/2024 12:58 PM [facility]
--- NOTE | ~2024-03-08 | CT_ITS ---
EXAMINATION: CT CERVICAL SPINE WITHOUT CONTRAST CLINICAL INFORMATION: Status post fall. Pain. COMPARISON: CT dated October 29, 2022 TECHNIQUE: Continued sagittal images through the cervical spine from the skull base to the thoracic inlet using 3 mm collimation with bone and soft tissue algorithm. Sagittal and coronal reformatted images acquired. This CT examination was performed using dose optimization techniques as appropriate, variously including the following: *Automated exposure control *Adjustment of mA and/or kV according to patient size (this includes techniques or standardized protocols for targeted exams where dose is matched to indication/reason for exam; i.e. extremities or head) *Use of iterative reconstruction technique DLP: 356 mGy-cm FINDINGS: Craniocervical junction is intact. C1 is intact. C2 is intact. C3 is intact. C4 is intact. C5 is intact. C6 is intact. C7 is intact. Grade 1 retrolisthesis C3-4 likely degenerative. Focal calcification in the left ligamentum flavum region, C3 and to the right ligamentum flavum region, C5 to No prevertebral compartment hematoma. Opinion versus osteoporosis. Calcified plaques in the thoracic aortic arch and its main branches.. CT/CT cervical spine wo IV con IMPRESSION: Multilevel cervical spondylosis more conspicuous at C3-4 and C5-6 without acute fracture or trauma-related listhesis. Fleischner guidelines were followed. Electronically signed by: Leno Tom MD 03/08/2024 11:59 AM SHEA
--- NOTE | ~2024-03-08 | XR_ITS ---
EXAMINATION: XR ELBOW, RIGHT CLINICAL INFORMATION: Pain, fall, rule out fracture. COMPARISON: Right humeral radiographs performed concurrently. TECHNIQUE: AP, lateral, and oblique views of the right elbow. FINDINGS: -There is osteopenia. -Redemonstration of spiral fracture of the distal right humeral metadiaphysis as described on the humerus report. -No additional fractures are detected. There is normal alignment of the elbow joint. -There is a joint effusion of the right elbow, likely secondary to distal extension of the humeral fracture. Nondisplaced intra-articular fracture not excluded. -There is soft tissue swelling about the distal humerus. There is no subcutaneous emphysema. XR/XR elbow RT min 3V IMPRESSION: 1. Spiral fracture distal right femoral metadiaphysis as described in the humerus report. 2. Elbow joint is grossly intact and normally aligned. 3. Joint effusion, likely due to distal extent of the humeral fracture although a nondisplaced intra-articular radial head fracture is not excluded. 4. No soft tissue emphysema. Electronically signed by: Fran Jean Baptiste MD 03/08/2024 08:38 AM SHEA
--- NOTE | ~2024-03-08 | CT_ITS ---
EXAMINATION: CT LUMBAR SPINE WITHOUT CONTRAST CLINICAL INFORMATION: Status post fall. Pain. COMPARISON: CT dated July 10, 2023 TECHNIQUE: Contiguous axial images through the lumbar spine from T12 to the upper sacrum using 2 mm collimation with bone and soft tissue algorithm. Sagittal and coronal reformatted images acquired. This CT examination was performed using dose optimization techniques as appropriate, variously including the following: *Automated exposure control *Adjustment of mA and/or kV according to patient size (this includes techniques or standardized protocols for targeted exams where dose is matched to indication/reason for exam; i.e. extremities or head) *Use of iterative reconstruction technique DLP; 438 mGy-cm FINDINGS: Last rib-bearing vertebra labeled T12. Compression fracture deformity at representing 90% volume loss at T11. Multilevel marginal osteophyte formation and decreased intervertebral disc height. Vacuum phenomenon at T12-L1, L1 to and L4-5 levels. Grade 1 retrolisthesis, L1 to likely degenerative. Facet joint hypertrophy bilaterally from L2-3, to L5-S1 more conspicuous at L4-5 resulting in neuroforamina stenosis. Multilevel central spinal canal stenosis on a multifactorial basis from L1 to, to L5-S1. Levoconvex rotoscoliosis apex at L3-4. L1 is intact. L2 is intact. L3 is intact. L4 is intact. L5 is intact. No gross prevertebral compartment hematoma. Multifocal exophytic hypodensities throughout the kidneys. Numerous diverticula, left hemicolon. Calcified plaques abdominal aorta wall and iliac arteries without aneurysm. Calcified plaques at the origin of the mesenteric arteries and the main renal arteries. Reduced volume of the pancreatic parenchyma with likely laparoscopic dilatation. Fatty atrophy of the lumbar muscles likely denervation. CT/CT lumbar spine wo IV con IMPRESSION: Compression fracture deformity at representing 90% volume loss at T11, probably old. Multilevel lumbar spondylosis without acute fracture or trauma-related listhesis. Atherosclerosis disease. Diverticular disease. Multifocal hypodense lesions, kidneys. Electronically signed by: Leno Tom MD 03/08/2024 12:07 PM SHEA
[2024-03-08 05:18] LABS: Basophils Absolute Auto 0.1 X10*3/uL (0.0-0.2); Basophils Percent Auto 0.5 % (0-2); Eosinophils Absolute Auto 0.3 X10*3/uL (0.0-0.4); Eosinophils Percent Auto 2.2 % (0-4); Hematocrit 35.5 % (37.0-47.0); Hemoglobin 11.9 g/dl (12.0-16.0); Imm Gran Abs Auto 0.09 X10*3/uL (0.00-0.03); Imm Gran Pct Auto 0.7 % (0.0-0.4); Lymphocytes Absolute Auto 4.8 X10*3/uL (1.2-4.9); Lymphocytes Percent Auto 39.6 % (20-40); MANUAL DIFF FLAG NO; Mean Corpuscular HGB Conc 33.5 g/dl (31.0-35.0); Mean Corpuscular Hemoglobin 29.5 pg (27.0-33.0); Mean Corpuscular Volume 87.9 fL (80.0-98.0); Mean Platelet Volume 10.5 fL (9.4-12.3); Monocytes Absolute Auto 1.1 X10*3/uL (0.1-1.2); Monocytes Percent Auto 8.9 % (2-11); Neutrophils Absolute Auto 5.8 x10*3/uL (2.0-8.3); Neutrophils Percent Auto 48.1 % (45-73); Platelet Count 232 X10*3/uL (160-400); Red Blood Count 4.04 X10*6/uL (4.20-5.50); Red Cell Distribution Width 15.8 % (11.0-16.0); White Blood Count 12.1 X10*3/uL (4.8-10.8)
[2024-03-08 05:36] LABS: Alanine Aminotransferase 20 U/L (0-31); Albumin Level 4.1 g/dL (3.5-5.0); Alkaline Phosphatase 102 U/L (39-117); Anion Gap 17 (12-20); Aspartate Amino Transferase 26 U/L (5-31); Bilirubin Total 0.3 mg/dL (0.0-1.0); Blood Urea Nitrogen 16 mg/dL (9-16); Calcium 9.6 mg/dL (8.4-10.2); Carbon Dioxide 27 mmol/L (22-29); Chloride 102 mmol/L (96-108); Creatinine Clr Calc Pharmacy 47.5; Estimated Glomerular Filt Rate > 60; Glucose Random 160 mg/dL (60-115); Potassium 3.5 mmol/L (3.3-5.1); Sodium 142 mmol/L (135-145); Total Protein 7.4 g/dL (6.5-8.0)
[2024-03-08 05:43] LABS: Troponin-I High Sensitivity 4.7 ng/L (<3.5-17.0)
--- NOTE | 2024-03-08 05:54 | PC.NURSE ---
pt biba from home. pt a&ox4, respirations even and unlabored. pt noted to be hypertensive. pt reports falling out of bed but does not remember fall. pt states she 'might have been asleep' when she fell. pt presents with R elbow in ems sling, reports R elbow, upper back, and L foot pain. pt noted to have abrasion to L side of face, unknown loc. ems reports unable to place c collar. 20g placed in L ac, labs obtained.
--- NOTE | 2024-03-08 07:51 | ED_ITS ---
HPI - Fall General Chief Complaint: Fall Stated Complaint: R arm injury(elbow)n 02/01pain,-thinners, lac face Time Seen by Provider: 03/08/24 07:50 Source: patient and RN notes reviewed Mode of arrival: ambulatory Limitations: no limitations History of Present Illness ED Provider: Jennifer Reis PA-C HPI Narrative: This is a 84-year-old female, with a history of anemia, osteoporosis, compression fracture of the spine, paroxysmal atrial fibrillation not anticoagulated, COPD, DVT, gout, type 2 diabetes, hypertension, and hyperlipidemia, who presents emergency department with complaints of right arm pain status post fall which occurred early this morning. Patient reports that she was getting up to use the restroom from bed when she tripped and fell and landed onto her right arm. Reports that this was purely mechanical. She felt fine prior to the fall. Patient reports a constant 10/10 right sided arm pain. Patient reports that the pain worsens with movement of her arm. Patient reports that she fell onto the ground and landed onto her right arm, as well as struck the left side of her face onto the ground. She denies loss of consciousness. She was only there for several minutes when she was able to get herself back up. She denies any current severe headache, dizziness, blurred vision, chest pain, shortness of breath, abdominal pain, nausea, vomiting or diarrhea. Denies taking any medications prior to her arrival. No other complaints or concerns at this time. MD complaint: fall Onset (ago): day(s) Fall from: out of bed Fall witnessed: no Place fall occurred: home Loss of consciousness: none Prolonged down time: no Symptoms prior to fall: none Context: tripped/slipped Related Data Home Medications ?Medication ?Instructions ?Recorded ?Confirmed metoprolol succinate 50 mg 75 mg PO DAILY 04/09/22 03/08/24 tablet,extended release 24 hr magnesium 200 mg tablet 400 mg PO BID 10/27/22 01/02/24 duloxetine 30 mg capsule,delayed 30 mg PO BID 12/27/23 01/02/24 release Previous Rx's ?Medication ?Instructions ?Recorded blood-glucose meter (FreeStyle #1 ea 04/09/20 Lite Meter kit) Ventolin HFA 90 mcg/actuation 2 puff inhalation Q4-6H PRN for 10/08/22 aerosol inhaler (albuterol sulfate) wheezing #18 grams Serevent Diskus 50 mcg/dose powder 1 inh inhalation BID ASTHMA/COPD 05/30/23 for inhalation (salmeterol) 30 days #120 ea nebulizers #1 ea 06/16/23 albuterol sulfate 2.5 mg/3 mL 2.5 mg (3 mL) inhalation Q6H PRN 06/23/23 (0.083 %) solution for nebulization shortness of breath or wheezing 30 days #180 mL bisacodyl 5 mg tablet,delayed 5 mg PO DAILY #20 tabs 06/23/23 release (Dulcolax (bisacodyl)) gabapentin 100 mg capsule 100 mg PO Q8H #90 caps 08/12/23 (Neurontin) pantoprazole 40 mg tablet,delayed 40 mg PO DAILY #90 ea 09/04/23 release sitagliptin phosphate 50 1 tab PO BID 90 days #180 tabs 10/16/23 mg-metformin 500 mg tablet fluticasone furoate 100 1 inh inhalation DAILY ASTHMA/COPD 10/18/23 mcg/actuation blister powder for 30 days #30 ea inhalation (Arnuity Ellipta) fluticasone propionate 50 1 spray intranasal BID 3 months 10/28/23 mcg/actuation nasal #48 grams spray,suspension alprazolam 0.25 mg tablet 0.25 mg PO DAILY anxiety #90 tabs 12/24/23 epinephrine 0.3 mg/0.3 mL 0.3 mg (0.3 mL) IM ONCE PRN 12/28/23 injection, auto-injector (EpiPen) anaphylaxis #1 ea ipratropium 0.5 mg-albuterol 3 mg 3 ml inhalation Q6H PRN 01/05/24 (2.5 mg base)/3 mL nebulization wheezing/SOB 30 days #180 mL soln allopurinol 100 mg tablet 100 mg PO DAILY #90 tabs 01/17/24 losartan 50 mg tablet 50 mg PO DAILY #90 tabs 01/17/24 furosemide 20 mg tablet 20 mg PO QAM PRN edema #30 tabs 02/03/24 montelukast 10 mg tablet 10 mg PO BEDTIME for allergic 02/20/24 rhinitis #90 tabs rosuvastatin 20 mg tablet 20 mg PO BEDTIME #90 tabs 02/21/24 acetaminophen 300 mg-codeine 15 mg 1 tab PO DAILY #14 tabs 03/08/24 tablet Allergies Allergy/AdvReac Type Severity Reaction Status Date / Time Penicillins [PENICILLINS] Allergy Intermediate rash Verified 03/08/24 05:03 meperidine [Demerol] Allergy Unknown Nausea and Verified 03/08/24 05:03 Vomiting oxycodone Allergy Unknown Nausea and Verified 03/08/24 05:03 Vomiting Sulfa (Sulfonamide Allergy Unknown NAUSEA & Verified 03/08/24 05:03 Antibiotics) VOMITING, [SULFA (SULFONAMIDE GI upset ANTIBIOTICS)] warfarin [WARFARIN] AdvReac Severe UNKNOWN Verified 03/08/24 05:03 aspirin [ASPIRIN] AdvReac Mild gi bleed Verified 03/08/24 05:03 enoxaparin [From LOVENOX] AdvReac Unknown INTERNAL Verified 03/08/24 05:03 BLEEDING heparin [HEPARIN] AdvReac Unknown INTERNAL Verified 03/08/24 05:03 BLEEDING ibuprofen AdvReac Unknown GI bleed Verified 03/08/24 05:03 Chocolate AdvReac Diarrhea Verified 03/08/24 05:03 Review of Systems 2 Review of Systems: Yes all other systems are reviewed and are negative Constitutional: Constitutional: Reports as per HPI [facility] Past Medical History Medical History Lumbar back pain with radiculopathy affecting left lower extremity Mixed stress and urge urinary incontinence Osteoporosis History of compression fracture of spine Compression fracture of body of thoracic vertebra Paroxysmal atrial fibrillation Anemia COVID-19 Diverticulitis COPD (chronic obstructive pulmonary disease) Allergic rhinitis Multiple lipomas Nodular lesion on surface of skin 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) GERD (gastroesophageal reflux disease) Deep vein thrombosis (DVT) of left lower extremity Gout Anxiety disorder Type 2 diabetes mellitus without complication, without long-term current use of insulin Hyperlipidemia Hypertension Surgical History H/O local excision of skin lesion Family History Family History Mother Mental health disorder Sister CVA (cerebral vascular accident) Daughter Brain tumor Diabetes Bipolar 1 disorder Heart abnormality Mental illness in member of household Mental health disorder Father Substance use disorder Son Mental health disorder Social History Social History Household Members: Family Housing: House Do you presently have visiting nurse or other home services: No Alcohol intake: former Patient Tobacco Use Status: Former Tobacco user Years Smoked: 10 yrs e-Cigarette/Vaping Use: Never Used Second Hand Smoke Exposure: No Advance Directives Date on File: 07/27/21 service: No Current occupational status: retired Cognitive needs: No Hearing needs: No Vision needs: Yes Physical Exam 2 Vital Signs: Vital Signs: Last Vital Signs Temp 98.2 F 03/08/24 16:41 Pulse 116 H 03/08/24 16:41 Resp 14 03/08/24 16:41 BP 169/97 H 03/08/24 16:41 Pulse Ox 98 03/08/24 16:41 O2 Del Method Room Air 03/08/24 16:41 BMI result Body Mass Index 36.9 Const: General: cooperative, comfortable and no acute distress O rientation/consciousness: patient oriented x3 Limitations: no limitations HEENT: Other: No midline C-spine spine tenderness. Superficial abrasion noted overlying the left temporal region, no bony step-off or deformity. Nontender. Head: Yes normal to inspection, Yes normocephalic, Yes atraumatic, No Acrocyanosis present, No Palencia's sign and No hematoma Ears: hearing grossly normal bilaterally and TM's normal bilaterally General nose exam: Normal external nose present Face and sinus: Yes normal facial exam Mouth: Normal oral and palatal mucosa present, oropharynx normal and moist mucous membranes Throat: Yes posterior oropharynx normal Eyes: General: appearance normal, both eyes and all related structures E yelids: Yes eyelids normal Conjunctivae: conjunctivae normal Sclerae: s clerae normal Pupils: Equal, round and reactive pupils present EOM: EOMs intact bilaterally Neck: Other: No midline spine tenderness on examination. Neck: Yes normal visual inspection, Yes full ROM and Yes no lymphadenopathy Lymphatic: no lymphadenopathy noted Chest: Chest palpation & inspection: normal inspection of the chest Resp: Effort & Inspection: normal respiratory effort and able to speak in complete sentences Auscultation: clear to auscultation bilaterally, no crackles, no rales, no rhonchi and no wheezes Cardio: Rate: regular rate Rhythm: regular rhythm Heart sounds: S1 normal heart sound present and S2 normal heart sound present GI: Inspection: Yes normal to inspection Skin: General skin exam: no rashes or lesions noted Trauma: no lacerations or abrasions Wounds: no wounds Neuro: General: patient oriented x3 and moves all extremities Cranial nerves: Yes CN's II-XII intact bilaterally and Yes Equal, round and reactive pupils present Cognition (Neuro): normal cognition Gait exam (Neuro): N ormal gait present Motor exam (neuro): 5/5 motor strength present throughout and Pronator motor function not present Extrem: Other: Right distal humerus with obvious bony deformity and swelling, able to flex and extend at the elbow, able to move wrist, strong radial pulse. No tenderness palpation along the olecranon, right shoulder nontender, no clavicular pain. Distal sensation circulation intact. No open wounds, or lacerations noted. Left foot with tenderness palpation along the 5th metatarsal, no open wounds. Full range of motion of the digits. Strong DP pulse. General: Yes normal to inspection Right upper extremity: normal to inspection Left upper extremity: normal to inspection Right lower extremity: normal to inspection Left lower extremity: normal to inspection Course Reevaluation(s) Reevaluation #1: Still awaiting CT head, neck and lumbar spine. X-ray of the humerus revealing spiral displaced fracture of the distal humerus metadiaphysis as detailed, osteopenia, and severe degenerative arthrosis. Patient's arm resting in sling, she was medicated with Tylenol with codeine. Reached out to orthopedic surgical PATrever PA-C. Time: 11:49 Reevaluation #2: Orthopedic reporting that they will follow-up outpatient. She will stay in sling until she sees them outpatient next week. X-ray of the foot revealing acute fracture of the distal diaphysis 5th metatarsal left foot. She can be placed in a walking boot per water conservation specialist. Awaiting 3rd troponin. Patient did not take her blood pressure medication therefore these medications were continued. She was also re medicated with pain medication secondary to increased pain in her right arm. CT head and revealing no acute abnormalities. The lumbar CT scan revealed a compression fracture deformity representing 90% volume loss at T11, likely old. Patient states that she has a history of concussion this is an old compression fracture that she is already been made aware. We will continue to closely monitor. Time: 14:17 Reevaluation #3: Third troponin flat. Discussed overall workup today. She will follow-up with water conservation specialist outpatient. Discussed strict return precautions. She tolerated Tylenol No. 3 well without any complications or concerns. Patient discharged with short course of this medication. Advised to only take this for severe pain. Also educated that we can not refill this medication through the emergency room. Encouraged to take Tylenol for moderate pain. She understands and agrees with plan. Given strict return precautions. Patient stable for discharge. Medications Administered Discontinued Medications Generic Name Dose Route Start Last Admin Trade Name Freq PRN Reason Stop Dose Admin Acetaminophen/Codeine Phosphate 1 tab 03/08/24 08:29 03/08/24 08:36 Acetaminophen/Codeine 300-30mg Tablet PO 03/08/24 08:30 1 tab ONCE ONE Administration Acetaminophen/Codeine Phosphate 1 tab 03/08/24 13:54 03/08/24 14:07 Acetaminophen/Codeine 300-30mg Tablet PO 03/08/24 13:55 1 tab ONCE ONE Administration Losartan Potassium 50 mg 03/08/24 14:00 03/08/24 14:09 Losartan Potassium 50 Mg Tablet PO 50 mg DAILY [facility] Administration Protocol Metoprolol Succinate 75 mg 03/08/24 14:00 03/08/24 14:10 Metoprolol Succinate Er 25 Mg Tab.Er.24h PO 75 mg DAILY [place] Administration Protocol Medical Decision Making Medical Decision Making [facility] Narrative: This is a 84-year-old female who presents emergency department with complaints of right arm pain status post mechanical fall which occurred this morning. On arrival, patient found to be hypertensive at 176/79. Patient was not evaluated until approximately 08:00AM this morning due to long wait times. While pressure likely secondary to pain. Patient with obvious edema and tenderness palpation along the distal humerus concerning for fracture. Head is normocephalic, atraumatic. She is alert and oriented x4, no focal deficits on examination, she does have a slight superficial abrasion noted to the left side of her face, however she has no tenderness in this region. She has no midline spine tenderness. She states that this fall was purely mechanical, and she states that she was getting out of bed to use the restroom when suddenly she fell and landed onto her right arm. She reports that she was feeling fine prior to the fall. She denies any current headache, dizziness, blurred vision, chest pain, shortness for breath. Given fall during the night, will obtain CT head, neck, x-ray of the right humerus, right elbow, as well as left foot and ankle. Also will obtain labs, and EKG. Treating pain with Tylenol No. 3 as patient reports that she does not want anything stronger than this and has tolerated this well in the past. She did not take her blood pressure medication today therefore we will medicate her in the department today. Differential Diagnosis Differential Diagnoses: The differential diagnosis associated with the presentation includes Fracture, contusion, sprain, strain Admission/Observation Consideration of admission/observation: Escalation of care including admission/observation considered Lab Data MDM Lab Attestation statement: I reviewed the patient's lab results. Patient with leukocytosis at 16.1k > likely reactive; troponin x3 negative; UA with trace leuk esterases and rbc's, she has no urinary symptoms. Will await culture. 03/08/24 09:35 03/08/24 09:35 Labs: Lab Results 03/08/24 03/08/24 03/08/24 Range/Units 05:14 09:02 09:35 WBC 12.1 H 16.1 H (4.8-10.8) X10*3/uL RBC 4.04 L 4.14 L (4.20-5.50) X10*6/uL Hgb 11.9 L 12.0 (12.0-16.0) g/dl Hct 35.5 L 36.5 L (37.0-47.0) % MCV 87.9 88.2 (80.0-98.0) fL MCH 29.5 29.0 (27.0-33.0) pg MCHC 33.5 32.9 (31.0-35.0) g/dl RDW 15.8 15.8 (11.0-16.0) % Plt Count 232 217 (160-400) X10*3/uL MPV 10.5 10.3 (9.4-12.3) fL Immature Gran % (Auto) 0.7 H 0.7 H (0.0-0.4) % Neut % (Auto) 48.1 79.8 H (45-73) % Lymph % (Auto) 39.6 14.0 L (20-40) % [place] % (Auto) 8.9 5.0 (2-11) % Eos % (Auto) 2.2 0.3 (0-4) % Baso % (Auto) 0.5 0.2 (0-2) % Lymph # (Auto) 4.8 2.3 (1.2-4.9) X10*3/uL [place] # (Auto) 1.1 0.8 (0.1-1.2) X10*3/uL Eos # (Auto) 0.3 0.1 (0.0-0.4) X10*3/uL Baso # (Auto) 0.1 0.0 (0.0-0.2) X10*3/uL Abs Immat Gran (auto) 0.09 H 0.12 H (0.00-0.03) X10*3/uL Absolute Neuts (auto) 5.8 12.9 H (2.0-8.3) x10*3/uL Absolute Nucleated RBC 0.000 0.000 (0.0-0.012) X10*3/uL Nucleated RBC % (auto) 0.0 0.0 (0.0-0.2) /100WBC Sodium 142 141 (135-145) mmol/L Potassium 3.5 3.8 (3.3-5.1) mmol/L Chloride 102 103 (96-108) mmol/L Carbon Dioxide 27 29 (22-29) mmol/L Anion Gap 17 13 (12-20) BUN 16 16 (9-16) mg/dL Creatinine 0.80 0.82 (0.5-1.4) mg/dL Estim Creat Clear Calc 47.5 46.4 Estimated GFR > 60 > 60 POC Glucose 160 H (60-115) mg/dL Random Glucose 160 H 174 H (60-115) mg/dL Calcium 9.6 9.2 (8.4-10.2) mg/dL Magnesium 1.6 (1.6-2.6) mg/dL Total Bilirubin 0.3 0.4 (0.0-1.0) mg/dL Direct Bilirubin 0.1 (0.0-0.5) mg/dL AST 26 34 H (5-31) U/L ALT 20 20 (0-31) U/L Alkaline Phosphatase 102 91 (39-117) U/L Troponin I High Sens 4.7 2.9 (<3.5-17.0) ng/L Total Protein 7.4 7.4 (6.5-8.0) g/dL Albumin 4.1 4.1 (3.5-5.0) g/dL Urine Color Yellow Urine Appearance Clear Urine pH 8.0 (5.0-9.0) Ur Specific [place] 1.025 (1.005-1.025) Urine Protein 30 (1+) H (Neg-Trace) mg/dL Urine Glucose (UA) Negative (Negative) mg/dL Urine Ketones Trace (Negative) mg/dL Urine Blood Negative (Negative) Urine Nitrite Negative (Negative) Ur Leukocyte Esterase Trace H (Negative) Urine RBC 6-10 H (0-2) /HPF Urine WBC 0-5 (0-5) /HPF Ur Squamous Epith Cells 0-2 (0-2) /HPF Urine Bacteria None Seen (None Seen) Hyaline Casts 0-2 (0-2) /LPF 03/08/24 03/08/24 Range/Units 11:05 15:36 WBC (4.8-10.8) X10*3/uL RBC (4.20-5.50) X10*6/uL Hgb (12.0-16.0) g/dl Hct (37.0-47.0) % MCV (80.0-98.0) fL MCH (27.0-33.0) pg MCHC (31.0-35.0) g/dl RDW (11.0-16.0) % Plt Count (160-400) X10*3/uL MPV (9.4-12.3) fL Immature Gran % (Auto) (0.0-0.4) % Neut % (Auto) (45-73) % Lymph % (Auto) (20-40) % [place] % (Auto) (2-11) % Eos % (Auto) (0-4) % Baso % (Auto) (0-2) % Lymph # (Auto) (1.2-4.9) X10*3/uL [place] # (Auto) (0.1-1.2) X10*3/uL Eos # (Auto) (0.0-0.4) X10*3/uL Baso # (Auto) (0.0-0.2) X10*3/uL Abs Immat Gran (auto) (0.00-0.03) X10*3/uL Absolute Neuts (auto) (2.0-8.3) x10*3/uL Absolute Nucleated RBC (0.0-0.012) X10*3/uL Nucleated RBC % (auto) (0.0-0.2) /100WBC Sodium (135-145) mmol/L Potassium (3.3-5.1) mmol/L Chloride (96-108) mmol/L Carbon Dioxide (22-29) mmol/L Anion Gap (12-20) BUN (9-16) mg/dL Creatinine (0.5-1.4) mg/dL Estim Creat Clear Calc Estimated GFR POC Glucose 140 H (60-115) mg/dL Random Glucose (60-115) mg/dL Calcium (8.4-10.2) mg/dL Magnesium (1.6-2.6) mg/dL Total Bilirubin (0.0-1.0) mg/dL Direct Bilirubin (0.0-0.5) mg/dL AST (5-31) U/L ALT (0-31) U/L Alkaline Phosphatase (39-117) U/L Troponin I High Sens 4.7 D (<3.5-17.0) ng/L Total Protein (6.5-8.0) g/dL Albumin (3.5-5.0) g/dL Urine Color Urine Appearance Urine pH (5.0-9.0) Ur Specific [place] (1.005-1.025) Urine Protein (Neg-Trace) mg/dL Urine Glucose (UA) (Negative) mg/dL Urine Ketones (Negative) mg/dL Urine Blood (Negative) Urine Nitrite (Negative) Ur Leukocyte Esterase (Negative) Urine RBC (0-2) /HPF Urine WBC (0-5) /HPF Ur Squamous Epith Cells (0-2) /HPF Urine Bacteria (None Seen) Hyaline Casts (0-2) /LPF Independent Interpretation I performed an independent interpretation of an: EKG Interpretation: EKG performed at 5:19 a.m., revealing normal sinus rhythm at a ventricular rate of 76 beats per minute, incomplete right bundle-branch block. Repeat EKG performed at 9:21 a.m. revealing normal sinus rhythm with T-wave abnormality seen in V3. Right bundle branch block was no longer present. Given this finding, 3 troponins were repeated, revealing no acute ischemia. Radiology Impression Discussion of test interpretation with radiology: I have reviewed the radiologist's reading. Radiologist Impression: CT/CT lumbar spine wo IV con IMPRESSION: Compression fracture deformity at representing 90% volume loss at T11, probably old. Multilevel lumbar spondylosis without acute fracture or trauma-related listhesis. Atherosclerosis disease. Diverticular disease. Multifocal hypodense lesions, kidneys. Electronically signed by: Leno Tom MD 03/08/2024 12:07 PM EST RP Dictated By: Leno Conti MD CT/CT cervical spine wo IV con IMPRESSION: Multilevel cervical spondylosis more conspicuous at C3-4 and C5-6 without acute fracture or trauma-related listhesis. Fleischner guidelines were followed. Electronically signed by: Leno Tom MD 03/08/2024 11:59 AM EST RP Dictated By: Leno Conti MD XR/XR foot LT min 3V IMPRESSION: Acute fracture distal diaphysis fifth metatarsal left foot. Positive exam. Electronically signed by: Leno Tom MD 03/08/2024 01:00 PM EST RP Dictated By: Leno Conti MD Signed By: <Electronically signed by Leno Mclain MD in OV> XR/XR ankle LT min 3V IMPRESSION: No acute fracture or dislocation, left ankle. Recommend dedicated left foot x-ray to evaluate the fifth metatarsal. Electronically signed by: Leno Tom MD 03/08/2024 12:58 PM EST RP Dictated By: Leno Conti MD External Record Review External record reviewed: Inpatient record, Office record, Outpatient record, Prior outpatient labs, Prior outpatient radiology, Primary care record and Outside ED record Discharge Plan Discharge Clinical Impression: Closed fracture of distal end of humerus Qualifiers: Encounter type: initial encounter Fracture morphology: other fracture Fracture alignment: displaced Laterality: right Qualified Code(s): S42.491A - Other displaced fracture of lower end of right humerus, initial encounter for closed fracture Fracture of fifth metatarsal bone of left foot Qualifiers: Encounter type: initial encounter Fracture type: closed Physeal involvement: u nspecified Qualified Code(s): S92.352A - Displaced fracture of fifth metatarsal bone, left foot, initial encounter for closed fracture Patient Disposition: Home, Self-Care Instructions: Arm Fracture in Adults (ED), Foot Fracture in Adults (ED), How to Use a Sling (ED), Shoulder Immobilizer (ED) Additional Instructions: You were seen in the emergency department after a fall. You had fractured your right arm. Please keep your arm sling for comfort. You need to follow-up with the orthopedic surgeon. Call to make an appointment. You also fractured the bone in your left foot. Please wear walking boot. You declined wanting to be evaluated by Physical therapy today. Please apply ice were comfort onto your foot and your left arm. You may remove the walking boot, use this when your ambulating. Take prescribed pain medication (tylenol with codeine) as directed. Please be advised that this is only reserved for severe pain only. Please be advised that we can not refill this pain medication through the emergency room in you need to follow-up with your primary care physician regarding this. Please be advised that this can cause drowsiness, do not drink alcohol or drive while taking this. This also can become addictive, therefore it is very important that you only take this as needed for severe pain only. Take Tylenol for mild to moderate pain. If any new or worsening symptoms occur including but not limited to severe chest pain, shortness of breath, please seek emergent care. Prescriptions: New acetaminophen-codeine 300-15 mg tablet 1 tab PO DAILY Qty: 14 0RF No Action (DME) blood-glucose meter [FreeStyle Lite Meter] Kit See Rx Instructions .ROUTE .MEDSUPPLY Qty: 1 0RF Rx Instructions: Check blood sugar once a day as directed albuterol sulfate [Ventolin HFA] 90 mcg/actuation HFA aerosol inhaler 2 puff inhalation Q4-6H PRN (Reason: for wheezing) Qty: 18 0RF Serevent Diskus 50 mcg/dose blister with device 1 inh inhalation BID 30 Days Qty: 120 5RF (DME) nebulizers Misc See Rx Instructions .Route Qty: 1 0RF Rx Instructions: As directed albuterol sulfate 2.5 mg /3 mL (0.083 %) solution for nebulization 2.5 mg inhalation Q6H PRN (Reason: shortness of breath or wheezing) 30 Days Qty: 180 5RF pantoprazole 40 mg tablet,delayed release (DR/EC) 40 mg PO DAILY Qty: 90 1RF sitagliptin phos-metformin 50-500 mg tablet 1 tab PO BID 90 Days Qty: 180 1RF Arnuity Ellipta 100 mcg/actuation blister with device 1 inh inhalation DAILY 30 Days Qty: 30 5RF fluticasone propionate 50 mcg/actuation spray,suspension 1 spray intranasal BID 90 Days Qty: 48 1RF Rx Instructions: administer into each nostril alprazolam 0.25 mg tablet 0.25 mg PO DAILY Qty: 90 0RF epinephrine [EpiPen] 0.3 mg/0.3 mL auto-injector 0.3 mg IM ONCE PRN (Reason: anaphylaxis) Qty: 1 0RF Rx Instructions: do not exceed 12 doses per 24 hrs losartan 50 mg tablet 50 mg PO DAILY Qty: 90 1RF allopurinol 100 mg tablet 100 mg PO DAILY Qty: 90 1RF furosemide 20 mg tablet 20 mg PO QAM PRN (Reason: edema) Qty: 30 4RF montelukast 10 mg tablet 10 mg PO BEDTIME Qty: 90 3RF rosuvastatin 20 mg tablet 20 mg PO BEDTIME Qty: 90 1RF metoprolol succinate 50 mg tablet extended release 24 hr 75 mg PO DAILY Protocol: Hold for SBP/HR < HOLD for SBP < : 90 HOLD for HR < : 60 gabapentin [Neurontin] 100 mg capsule 100 mg PO Q8H Qty: 90 5RF duloxetine 30 mg capsule,delayed release(DR/EC) 30 mg PO BID bisacodyl [Dulcolax (bisacodyl)] 5 mg tablet,delayed release (DR/EC) 5 mg PO DAILY Qty: 20 0RF ipratropium-albuterol 0.5 mg-3 mg(2.5 mg base)/3 mL solution for nebulization 3 ml inhalation Q6H PRN (Reason: wheezing/SOB) 30 Days Qty: 180 3RF magnesium 200 mg tablet 400 mg PO BID [place] [facility] [place]Provider Group] Interventions: ED Discharge Assessment Last Done: 03/08/24 16:41 Discharge Date/Time: 03/08/24 16:41 Print Language: Micronesian
[2024-03-08] MEDS: Acetaminophen/Codeine 300-30mg Tablet 1 TAB PO ×2 (08:36→14:07)
[2024-03-08 09:06] LABS: Glucose, Whole Blood 160 mg/dL (60-115)
--- NOTE | 2024-03-08 09:07 | ECG_ITS ---
Test Reason : FALL Blood Pressure : / mmHG Vent. Rate : 084 BPM Atrial Rate : 084 BPM P-R Int : 148 ms QRS Dur : 112 ms QT Int : 416 ms P-R-T Axes : 037 -24 -15 degrees QTc Int : 491 ms Normal sinus rhythm Nonspecific T wave abnormality Prolonged QT Abnormal ECG When compared with ECG of 08-MAR-2024 05:19, No significant changes seen Referred By: Jennifer Reis Electronically Signed By:Nate Alexander
[2024-03-08 09:40] LABS: MANUAL DIFF FLAG NO
[2024-03-08 09:41] LABS: Basophils Percent Auto 0.2 % (0-2); Eosinophils Absolute Auto 0.1 X10*3/uL (0.0-0.4); Eosinophils Percent Auto 0.3 % (0-4); Hematocrit 36.5 % (37.0-47.0); Imm Gran Abs Auto 0.12 X10*3/uL (0.00-0.03); Imm Gran Pct Auto 0.7 % (0.0-0.4); Lymphocytes Absolute Auto 2.3 X10*3/uL (1.2-4.9); Mean Corpuscular HGB Conc 32.9 g/dl (31.0-35.0); Mean Corpuscular Volume 88.2 fL (80.0-98.0); Mean Platelet Volume 10.3 fL (9.4-12.3); Monocytes Absolute Auto 0.8 X10*3/uL (0.1-1.2); Neutrophils Absolute Auto 12.9 x10*3/uL (2.0-8.3); Neutrophils Percent Auto 79.8 % (45-73); Platelet Count 217 X10*3/uL (160-400); Red Blood Count 4.14 X10*6/uL (4.20-5.50); Red Cell Distribution Width 15.8 % (11.0-16.0); White Blood Count 16.1 X10*3/uL (4.8-10.8)
[2024-03-08 09:46] LABS: Appearance Urine Clear; Color Urine Yellow; Glucose Urine UA Negative (Negative); Leukocyte Esterase Urine Trace (Negative); Nitrite Urine Negative (Negative); Specific Gravity - Urine 1.025 (1.005-1.025); UMIC TRIGGER UACC YES; Urine Blood Negative (Negative); Urine Ketones Trace mg/dL (Negative); Urine Protein 30 (1+) mg/dL (Neg-Trace)
[2024-03-08 09:54] LABS: Bacteria Urine None Seen (None Seen); Hyaline Casts Urine 0-2 /LPF (0-2); Squamous Epithelial Cell Urine 0-2 /HPF (0-2); WBC Urine 0-5 /HPF (0-5)
[2024-03-08 09:59] LABS: Alanine Aminotransferase 20 U/L (0-31); Albumin Level 4.1 g/dL (3.5-5.0); Alkaline Phosphatase 91 U/L (39-117); Anion Gap 13 (12-20); Aspartate Amino Transferase 34 U/L (5-31); Bilirubin Direct 0.1 mg/dL (0.0-0.5); Bilirubin Total 0.4 mg/dL (0.0-1.0); Blood Urea Nitrogen 16 mg/dL (9-16); Calcium 9.2 mg/dL (8.4-10.2); Carbon Dioxide 29 mmol/L (22-29); Chloride 103 mmol/L (96-108); Creatinine Clr Calc Pharmacy 46.4; Estimated Glomerular Filt Rate > 60; Glucose Random 174 mg/dL (60-115); Magnesium 1.6 mg/dL (1.6-2.6); Potassium 3.8 mmol/L (3.3-5.1); Sodium 141 mmol/L (135-145); Total Protein 7.4 g/dL (6.5-8.0)
[2024-03-08 10:05] LABS: Troponin-I High Sensitivity 2.9 ng/L (<3.5-17.0)
[2024-03-08 11:08] LABS: Glucose, Whole Blood 140 mg/dL (60-115)
[2024-03-08] MEDS: Losartan Potassium 50 MG TABLET PO (14:09)
[2024-03-08] MEDS: Metoprolol Succinate ER 25 MG TAB.ER.24H 75 MG PO (14:10)
[2024-03-08 16:04] LABS: Troponin-I High Sensitivity 4.7 ng/L (<3.5-17.0)
== END 2024-03-08 16:41 | disposition home or self-care (01) ==
PROVIDERS: Physician Assistant Medical; Emergency Provider Student in an Organized Health Care Education/Training Program; PCP Internal Medicine
DX: S92.352A Displaced fracture of fifth metatarsal bone, left foot, initial encounter for closed fracture (principal); S42.491A Other displaced fracture of lower end of right humerus, initial encounter for closed fracture; S00.81XA Abrasion of other part of head, initial encounter; R51.9 Headache, unspecified; M79.672 Pain in left foot; M79.601 Pain in right arm; I48.0 Paroxysmal atrial fibrillation; J44.9 Chronic obstructive pulmonary disease, unspecified; M54.2 Cervicalgia; M54.50 Low back pain, unspecified; W01.0XXA Fall on same level from slipping, tripping and stumbling without subsequent striking against object, initial encounter; Y93.89 Activity, other specified; Y92.092 Bedroom in other non-institutional residence as the place of occurrence of the external cause; Y99.8 Other external cause status; Z79.899 Other long term (current) drug therapy; Z87.891 Personal history of nicotine dependence; Z86.718 Personal history of other venous thrombosis and embolism
CPT/HCPCS: 36415; 70450; 72125; 72131; 73060; 73080; 73610; 73630; 80048; 80053; 80076; 81001; 82947; 83735; 84484; 85025; 93005; 99284; 99285

== ENCOUNTER → 2024-03-08 05:19 | Outpatient (BNV) | payer MEDICARE, MEDICAID, SELFPAY | PROVIDERS: Emergency Provider Student in an Organized Health Care Education/Training Program; PCP Internal Medicine; Visit Provider Internal Medicine Cardiovascular Disease | DX: M79.601 Pain in right arm (principal); I45.81 Long QT syndrome | CPT/HCPCS: 93010 ==

== ENCOUNTER → 2024-03-08 05:59 | Outpatient (BNV) | payer MEDICARE, MEDICAID, SELFPAY | PROVIDERS: Emergency Provider Student in an Organized Health Care Education/Training Program; PCP Internal Medicine; Visit Provider Radiology Diagnostic Radiology | DX: S42.491A Other displaced fracture of lower end of right humerus, initial encounter for closed fracture (principal); S92.352A Displaced fracture of fifth metatarsal bone, left foot, initial encounter for closed fracture; T14.90XA Injury, unspecified, initial encounter | CPT/HCPCS: 70450; 72125; 72131; 73060; 73080; 73610; 73630 ==

== ENCOUNTER 2024-03-14 07:50 | Outpatient (REF) | payer MEDICARE, MEDICAID, SELFPAY ==
--- NOTE | ~2024-03-14 | XR_ITS ---
EXAMINATION: XR HUMERUS, LEFT CLINICAL INFORMATION: R52 - Pain, unspecified COMPARISON: 03/08/2024 TECHNIQUE: AP and lateral views of the left humerus. FINDINGS: There is a displaced oblique fracture of the distal third right humeral diaphysis. Persistent three quarters lateral bone width displacement and dorsal angulation. Transdegenerative changes in the right shoulder and to lesser extent the right elbow. XR/XR humerus LT IMPRESSION: Angulated displaced right humeral fracture. Electronically signed by: Christopher Mars MD 03/25/2024 03:53 PM EST
--- NOTE | ~2024-03-14 | XR_ITS ---
EXAMINATION: XR SHOULDER, RIGHT CLINICAL INFORMATION: M25.511 - Pain in right shoulder COMPARISON: 03/08/2024 TECHNIQUE: Two views of the right shoulder. FINDINGS: Incompletely depicted is a known angulated displaced diaphyseal fracture of the right humerus. Limited views of the right shoulder demonstrate severe degenerative changes with hypertrophic bone proliferation joint space loss and sclerosis. No definite the proximal fracture. The right lung is clear. XR/XR shoulder RT min 2V IMPRESSION: Severe degenerative changes in the right shoulder. Distal right humeral diaphyseal fracture. Electronically signed by: Christopher Mars MD 03/25/2024 03:54 PM EST
== END 2024-03-14 07:51 | disposition home or self-care (01) ==
LOC: HO.HOSX 07:50
PROVIDERS: Visit Provider Physician Assistant
DX: M25.511 Pain in right shoulder (principal); M79.621 Pain in right upper arm; S42.301A Unspecified fracture of shaft of humerus, right arm, initial encounter for closed fracture; S92.912A Unspecified fracture of left toe(s), initial encounter for closed fracture
CPT/HCPCS: 24500; 73030; 73060; 99202

== ENCOUNTER 2024-03-14 09:57 | Outpatient (AMB) | payer MEDICARE, MEDICAID, SELFPAY ==
--- NOTE | 2024-03-14 10:08 | MHC.OFFVIS ---
Intake Visit Reasons: FC -fx of distal end of RT humerus, DOI 03/08/24 Intake Note: Joyce an 84 year old right hand dominant female who presents today for an ER follow up of right humerus fracture, DOI 03/08/24. Patient reports that she was getting up from bed to use the restroom when she tripped and fell and landed onto her right arm. She presented [place] [facility] [place] x-rays were taken and a sling was provided. Currently her pain level is a 10 out 10 and travels down her arm. No relief with Tylenol, finds some relief with icing. Difficulty getting comfortable to sleep. Hx of back fracture. Allergies Penicillins [PENICILLINS] Allergy (Intermediate, Verified 03/14/24 10:35) rash meperidine [Demerol] Allergy (Unknown, Verified 03/14/24 10:35) Nausea and Vomiting oxycodone Allergy (Unknown, Verified 03/14/24 10:35) Nausea and Vomiting Sulfa (Sulfonamide Antibiotics) [SULFA (SULFONAMIDE ANTIBIOTICS)] Allergy (Unknown, Verified 03/14/24 10:35) NAUSEA & VOMITING, GI upset warfarin [WARFARIN] Adverse Reaction (Severe, Verified 03/14/24 10:35) UNKNOWN aspirin [ASPIRIN] Adverse Reaction (Mild, Verified 03/14/24 10:35) gi bleed enoxaparin [From LOVENOX] Adverse Reaction (Unknown, Verified 03/14/24 10:35) INTERNAL BLEEDING heparin [HEPARIN] Adverse Reaction (Unknown, Verified 03/14/24 10:35) INTERNAL BLEEDING ibuprofen Adverse Reaction (Unknown, Verified 03/14/24 10:35) GI bleed Chocolate Adverse Reaction (Verified 03/14/24 10:35) Diarrhea Medication List - Last Reconciled 03/14/24 by Caterina Gill PA-C acetaminophen-codeine 300-15 mg 1 tab PO DAILY albuterol sulfate 2.5 mg (3 mL) inhalation Q6H PRN 30 days allopurinol 100 mg PO DAILY alprazolam 0.25 mg PO DAILY bisacodyl (Dulcolax (bisacodyl)) 5 mg PO DAILY blood-glucose meter (FreeStyle Lite Meter kit) Check blood sugar once a day as directed duloxetine 30 mg PO BID epinephrine (EpiPen) 0.3 mg (0.3 mL) IM ONCE PRN fluticasone furoate 100 mcg/actuation (Arnuity Ellipta) 1 inh inhalation DAILY 30 days fluticasone propionate 50 mcg/actuation 1 spray intranasal BID 3 months furosemide 20 mg PO QAM PRN gabapentin (Neurontin) 100 mg PO Q8H ipratropium-albuterol 0.5 mg-3 mg(2.5 mg base)/3 mL 3 mL inhalation Q6H PRN 30 days losartan 50 mg PO DAILY magnesium 400 mg PO BID metoprolol succinate ER 75 mg See Protocol PO DAILY montelukast 10 mg PO BEDTIME nebulizers As directed pantoprazole 40 mg PO DAILY rosuvastatin 20 mg PO BEDTIME Serevent Diskus (salmeterol) 1 inh inhalation BID 30 days NS sitagliptin phos-metformin 50-500 mg 1 tab PO BID 90 days Ventolin HFA 90 mcg/actuation (albuterol sulfate) 2 puffs inhalation Q4-6H PRN NS HPI HPI FC -fx of distal end of RT humerus, DOI 03/08/24: Details: 84-year-old female presents to the office today for an injury she sustained to her right arm on March 08. She states she was getting out of bed when she tripped and fell landing on the right arm. She was seen in the emergency department where x-rays were performed and demonstrated a right distal humerus fracture. She also sustained an injury to her left foot. She was placed in a postop shoe for a 5th metatarsal fracture. And she was referred to our office for ortho eval. Patient is accompanied by her daughter in the office. Patient presents and is uncomfortable at a resting position due to previous back injuries. She continues to apply pressure on to her right arm. 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) GERD (gastroesophageal reflux disease) Deep vein thrombosis (DVT) of left lower extremity Gout Anxiety disorder Type 2 diabetes mellitus without complication, without long-term current use of insulin Hyperlipidemia Hypertension Surgical History (Updated 03/14/24 @ 10:35 by QUE Stewart) Hx of hand surgery H/O local excision of skin lesion Family History Mother Mental health disorder Sister CVA (cerebral vascular accident) Daughter Brain tumor Diabetes Bipolar 1 disorder Heart abnormality Mental illness in member of household Mental health disorder Father Substance use disorder Son Mental health disorder Social History Household Members: Family Housing: House Do you presently have visiting nurse or other home services: No Alcohol intake: former Patient Tobacco Use Status: Former Tobacco user Years Smoked: 10 yrs e-Cigarette/Vaping Use: Never Used Second Hand Smoke Exposure: No Advance Directives Date on File: 07/27/21 service: No Current occupational status: retired Cognitive needs: No Hearing needs: No Vision needs: Yes Review of Systems Const All systems reviewed & are unremarkable except as noted in HPI and below Physical Exam Const General: cooperative and no acute distress Orientation/consciousness: patient oriented x3 Resp Effort & Inspection: normal respiratory effort and able to speak in complete sentences Cardio Peripheral pulses: Peripheral pulses 2+ throughout Neuro General: patient oriented x3 Extrem Other: Right shoulder normal to inspection. Significant ecchymosis and swelling throughout the arm into the forearm. She does have good sensation throughout the forearm into the wrist and hand. Radial ulnar and medial nerve sensory and motor function intact. Left foot skin intact. There is some bruising of the lateral edge of the left foot. There is tenderness at the base of the 5th metatarsal. Sensation intact. EHL intact. No pain along the mediolateral malleolus. Neurovascularly intact. Office Procedures AMB Fracture Care Fracture Billing Code: Fracture Billing Code Results Reviewed Results Reviewed: X-rays of the right shoulder and humerus obtained in the office today and reviewed by me show severe glenohumeral joint arthritis. Right humerus shows a displaced spiral fracture through the humeral shaft. No evidence of olecranon fracture. X-rays of the left foot obtained on 03/08/2024 show a nondisplaced 5th metatarsal phalanx fracture. Assessment & Plan Assessment & Plan (1) Fracture of humeral shaft, right, closed: Code(s): S42.301A - Unspecified fracture of shaft of humerus, right arm, initial encounter for closed fracture Category: Medical (2) Toe fracture, left: Code(s): S92.912A - Unspecified fracture of left toe(s), initial encounter for closed fracture Category: Medical Plan I discussed options with the patient and her family in the office today. For the right humeral shaft fracture we can treat this nonoperatively as the surrounding structures we will help to immobilize and assistance with gravity can help reduce the fracture. She was placed in a thermal molded humeral shaft fracture brace. She will wear this at all times. She will avoid any type of lifting pushing pulling or carrying with the right upper extremity. She can perform range of motion at the elbow as tolerated. For the left foot, she will continue using a postop shoe which she was given in the emergency department. As her symptoms improve in the left foot she can transition to a regular street shoe based on comfort. I did explain that typically fractures can take 6 weeks for bridging to develop and then another 6 weeks for some solid union. I did explain that based on her age and bone quality this may delay some of the healing process. I did give her a refill of Tylenol with codeine to take every 8 hours. She requested a muscle relaxer which I declined. I did educate her on the importance of compliance and caution with medication as we do not want this to cause sedation or respiratory distress. She expresses understanding. She is content with the plan and will see me back in 6 weeks with new x-rays of the right humerus and left foot. Orders: Orders XR shoulder RT min 2V Today M25.511 - Pain in right shoulder XR humerus LT Today R52 - Pain, unspecified Medications: New acetaminophen-codeine 300-30 mg 1 tab PO Q8H PRN 31 tabs 0RF pain 7 weeks Coding Level of Care Code New Pt Level 4 (56828) Complex EM visit Add On G2211 Diagnoses Fracture of humeral shaft, right, closed S42.301A Toe fracture, left S92.912A CPT Codes Fracture Care - Fracture Billing Code: Fracture Billing Code ([id number])
== END 2024-03-14 11:28 | disposition home or self-care (01) ==
PROVIDERS: PCP Internal Medicine; Visit Provider Physician Assistant
DX: S42.301A Unspecified fracture of shaft of humerus, right arm, initial encounter for closed fracture (principal); S92.912A Unspecified fracture of left toe(s), initial encounter for closed fracture
CPT/HCPCS: 24500; 99204; G2211

== ENCOUNTER 2024-03-17 08:03 | Inpatient (IN) | payer MEDICARE, MEDICAID, SELFPAY ==
--- NOTE | 2024-03-17 | ECG_ITS ---
Test Reason : upper abd pain Blood Pressure : / mmHG Vent. Rate : 099 BPM Atrial Rate : 099 BPM P-R Int : 138 ms QRS Dur : 114 ms QT Int : 402 ms P-R-T Axes : 025 -12 -02 degrees QTc Int : 515 ms Sinus rhythm Incomplete right bundle branch block Borderline ECG When compared with ECG of 08-MAR-2024 09:21, Incomplete right bundle branch block is now Present Referred By: Generic ED Physician Electronically Signed By:LEONELA SRINIVASAN MD
--- NOTE | ~2024-03-17 | CT_ITS ---
EXAMINATION: CT ABDOMEN AND PELVIS WITHOUT CONTRAST CLINICAL INFORMATION: Abdominal pain. History of diverticulitis. COMPARISON: CT abdomen and pelvis June 27, 2023 TECHNIQUE: Multidetector volumetric imaging was performed from the superior aspect of the liver through the pubic symphysis. Sagittal and coronal reformatted images were obtained on the technologist's workstation. This CT examination was performed using dose optimization techniques as appropriate, variously including the following: *Automated exposure control *Adjustment of mA and/or kV according to patient size (this includes techniques or standardized protocols for targeted exams where dose is matched to indication/reason for exam; i.e. extremities or head) *Use of iterative reconstruction technique DLP: 566 mGy-cm FINDINGS: Visualized lung bases are well aerated. The liver is normal in size. The gallbladder is normal in appearance. There is fatty atrophy of the pancreas. The spleen and adrenal glands are unremarkable. Symmetrically sized kidneys. No renal calculi or hydronephrosis bilaterally. Numerous bilateral renal cysts are again identified. Again noted are surgical changes of the GE junction. The stomach is decompressed. Normal caliber loops of small and large bowel. Moderate to severe colonic diverticulosis. There is suggestion of mild segmental wall thickening of the sigmoid colon with minimal pericolonic stranding. Normal caliber abdominal aorta demonstrating moderate atherosclerotic disease. No retroperitoneal lymphadenopathy. The bladder is decompressed and therefore not accurately evaluated. The uterus is surgically absent. No gross free pelvic fluid. No inguinal lymphadenopathy. Diffuse osteopenia. Mild to moderate degenerative changes of the spine. Old T11 compression fracture. CT/CT abdomen pelvis wo IV con IMPRESSION: 1. Moderate to severe colonic diverticulosis. There is suggestion of mild segmental wall thickening of the sigmoid colon with minimal pericolonic stranding. Findings are nonspecific but may represent a very mild active diverticulitis. 2. Bilateral renal cysts. Fleischner guidelines were followed. Electronically signed by: Madhav Everett MD 03/17/2024 09:03 AM [facility]
--- NOTE | ~2024-03-17 | XR_ITS ---
EXAMINATION: XR CHEST CLINICAL INFORMATION: fever, R O aspiration COMPARISON: Chest radiograph March 17, 2024 TECHNIQUE: Frontal view of the chest was obtained. FINDINGS: Patient is rotated. Low lung volumes. The heart and mediastinal borders are unchanged. Streaky opacities in the lung bases. No pleural effusion or focal dilatation. Severe bilateral glenohumeral degenerative changes. XR/XR chest 1V IMPRESSION: Streaky opacities in the lung bases, likely atelectasis. Electronically signed by: Tylor Frye MD 03/22/2024 05:49 PM EST
--- NOTE | ~2024-03-17 | XR_ITS ---
EXAMINATION: XR CHEST CLINICAL INFORMATION: coguh, F U atelactasis COMPARISON: 03/22/2024 and 03/17/2024 TECHNIQUE: AP portable upright view of the chest was obtained. Nonstandard positioning with low beam centering. FINDINGS: Low lung volumes. There is a new right midlung opacity suspicious for focal pneumonia. Increased prominence of the heart and mediastinum due to hypoventilation. Persistently dilated bowel loops. XR/XR chest 1V IMPRESSION: New right midlung opacity suspicious for pneumonia. Electronically signed by: Christopher Mars MD 03/25/2024 03:52 PM EST Workstation: [id number]
--- NOTE | ~2024-03-17 | XR_ITS ---
EXAMINATION: XR CHEST CLINICAL INFORMATION: copd COMPARISON: Chest CT October 29, 2022 and chest x-ray September 25, 2022 TECHNIQUE: Frontal view of the chest was obtained. Today's examination is markedly limited secondary to patient rotation. FINDINGS: Cardiac silhouette is grossly unremarkable given patient rotation. The lungs are mildly hypoinflated. No gross lobar consolidation. No pleural effusion or pneumothorax. Severe degenerative changes of both shoulders. XR/XR chest 1V IMPRESSION: Low lung volumes without acute pulmonary pathology. Electronically signed by: Madhav Everett MD 03/17/2024 09:06 AM [facility]
[2024-03-17 08:07] VITALS: BP 140/82; PULSE 106; O2SAT 94; BMI 34.9
[2024-03-17 08:13] VITALS: BP 138/69; PULSE 94; RESP 16; TEMP 36.7; O2SAT 92
--- NOTE | 2024-03-17 08:27 | ED_ITS ---
HPI - Abdominal Pain General Chief Complaint: Abdominal Pain Stated Complaint: Abd pain Time Seen by Provider: 03/17/24 08:15 Source: patient and family (Daughter) Mode of arrival: ambulatory Limitations: no limitations History of Present Illness ED Provider: DR. Melendrez HPI narrative: 84-year-old female PMH COPD, angioedema, GERD, DM 2, HTN among others who presented to our ED today for abdominal pain, patient thinks she has recurrent of diverticulitis, passing gas and flatus not passing formed stool, patient had a recent fall causing right fracture and foot fracture and multiple back injuries patient lives home with her family mostly independently. Patient is complaining of back pain. ED visits last week for a fall right arm and left foot fracture, patient also been having acute on chronic back pain. Related Data Home Medications ?Medication ?Instructions ?Recorded ?Confirmed metoprolol succinate 50 mg 75 mg PO DAILY 04/09/22 03/14/24 tablet,extended release 24 hr magnesium 200 mg tablet 400 mg PO BID 10/27/22 03/14/24 duloxetine 30 mg capsule,delayed 30 mg PO BID 12/27/23 03/14/24 release Previous Rx's ?Medication ?Instructions ?Recorded blood-glucose meter (FreeStyle #1 ea 04/09/20 Lite Meter kit) Ventolin HFA 90 mcg/actuation 2 puff inhalation Q4-6H PRN for 10/08/22 aerosol inhaler (albuterol sulfate) wheezing #18 grams Serevent Diskus 50 mcg/dose powder 1 inh inhalation BID ASTHMA/COPD 05/30/23 for inhalation (salmeterol) 30 days #120 ea nebulizers #1 ea 06/16/23 albuterol sulfate 2.5 mg/3 mL 2.5 mg (3 mL) inhalation Q6H PRN 06/23/23 (0.083 %) solution for nebulization shortness of breath or wheezing 30 days #180 mL bisacodyl 5 mg tablet,delayed 5 mg PO DAILY #20 tabs 06/23/23 release (Dulcolax (bisacodyl)) gabapentin 100 mg capsule 100 mg PO Q8H #90 caps 08/12/23 (Neurontin) pantoprazole 40 mg tablet,delayed 40 mg PO DAILY #90 ea 09/04/23 release sitagliptin phosphate 50 1 tab PO BID 90 days #180 tabs 10/16/23 mg-metformin 500 mg tablet fluticasone furoate 100 1 inh inhalation DAILY ASTHMA/COPD 10/18/23 mcg/actuation blister powder for 30 days #30 ea inhalation (Arnuity Ellipta) fluticasone propionate 50 1 spray intranasal BID 3 months 10/28/23 mcg/actuation nasal #48 grams spray,suspension alprazolam 0.25 mg tablet 0.25 mg PO DAILY anxiety #90 tabs 12/24/23 epinephrine 0.3 mg/0.3 mL 0.3 mg (0.3 mL) IM ONCE PRN 12/28/23 injection, auto-injector (EpiPen) anaphylaxis #1 ea ipratropium 0.5 mg-albuterol 3 mg 3 ml inhalation Q6H PRN 01/05/24 (2.5 mg base)/3 mL nebulization wheezing/SOB 30 days #180 mL soln allopurinol 100 mg tablet 100 mg PO DAILY #90 tabs 01/17/24 losartan 50 mg tablet 50 mg PO DAILY #90 tabs 01/17/24 furosemide 20 mg tablet 20 mg PO QAM PRN edema #30 tabs 02/03/24 montelukast 10 mg tablet 10 mg PO BEDTIME for allergic 02/20/24 rhinitis #90 tabs rosuvastatin 20 mg tablet 20 mg PO BEDTIME #90 tabs 02/21/24 acetaminophen 300 mg-codeine 15 mg 1 tab PO DAILY #14 tabs 03/08/24 tablet acetaminophen 300 mg-codeine 30 mg 1 tab PO Q8H PRN pain 7 weeks #31 03/14/24 tablet tabs Adult facial/body wipes #4 ea 03/15/24 Head & foot electric bed with half #1 ea 03/15/24 side rails Re-usable/washable adult pads #4 ea 03/15/24 adult pull-ups (medium) #120 ea 03/15/24 Allergies Allergy/AdvReac Type Severity Reaction Status Date / Time Penicillins [PENICILLINS] Allergy Intermediate rash Verified 03/17/24 08:11 meperidine [Demerol] Allergy Unknown Nausea and Verified 03/17/24 08:11 Vomiting oxycodone Allergy Unknown Nausea and Verified 03/17/24 08:11 Vomiting Sulfa (Sulfonamide Allergy Unknown NAUSEA & Verified 03/17/24 08:11 Antibiotics) VOMITING, [SULFA (SULFONAMIDE GI upset ANTIBIOTICS)] warfarin [WARFARIN] AdvReac Severe UNKNOWN Verified 03/17/24 08:11 aspirin [ASPIRIN] AdvReac Mild gi bleed Verified 03/17/24 08:11 enoxaparin [From LOVENOX] AdvReac Unknown INTERNAL Verified 03/17/24 08:11 BLEEDING heparin [HEPARIN] AdvReac Unknown INTERNAL Verified 03/17/24 08:11 BLEEDING ibuprofen AdvReac Unknown GI bleed Verified 03/17/24 08:11 Chocolate AdvReac Diarrhea Verified 03/17/24 08:11 Review of Systems Review of Systems all other systems are reviewed and are negative Constitutional: Reports as per HPI and Reports no additional constitutional complaints Eyes: Reports as per HPI and Reports no additional eye complaints Reports system reviewed and no additional complaints, except as documented Cardiovascular: Reports as per HPI and Reports no additional cardiovascular complaints Respiratory: Reports as per HPI and Reports no additional respiratory complaints Gastrointestinal: Reports as per HPI and Reports no additional gastrointestinal complaints Genitourinary: Reports no additional female genitourinary complaints Musculoskeletal: Reports no additional musculoskeletal complaints Skin/Breast: Reports system reviewed and no additional complaints, except as docu Psychiatric: Reports no additional psychiatric complaints Endocrine: Reports no additional endocrine complaints Hematologic/Lymphatic: Reports no additional hematologic/lymphatic complaints Allergic/Immunologic: Reports no additional allergic/immunologic complaints Reports system reviewed and no additional complaints, except as documented and Reports Abnormal speech present [facility] Past Medical History Medical History Lumbar back pain with radiculopathy affecting left lower extremity Mixed stress and urge urinary incontinence Osteoporosis History of compression fracture of spine Compression fracture of body of thoracic vertebra Paroxysmal atrial fibrillation Anemia COVID-19 Diverticulitis COPD (chronic obstructive pulmonary disease) Allergic rhinitis Multiple lipomas Nodular lesion on surface of skin 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) GERD (gastroesophageal reflux disease) Deep vein thrombosis (DVT) of left lower extremity Gout Anxiety disorder Type 2 diabetes mellitus without complication, without long-term current use of insulin Hyperlipidemia Hypertension Surgical History Hx of hand surgery H/O local excision of skin lesion Family History Family History Mother Mental health disorder Sister CVA (cerebral vascular accident) Daughter Brain tumor Diabetes Bipolar 1 disorder Heart abnormality Mental illness in member of household Mental health disorder Father Substance use disorder Son Mental health disorder Social History Social History Household Members: Family Housing: House Do you presently have visiting nurse or other home services: No Alcohol intake: former Patient Tobacco Use Status: Former Tobacco user Years Smoked: 10 yrs e-Cigarette/Vaping Use: Never Used Second Hand Smoke Exposure: No Advance Directives: Yes Advance Directives on File: Yes Advance Directives Date on File: 07/27/21 Do you have a plan to hurt others: No Plan service: No Current occupational status: retired Cognitive needs: No Hearing needs: No Vision needs: Yes Physical Exam ED Vital Signs: Vital Signs - 24 hr 03/17/24 08:13 Temperature 98.0 F Pulse Rate 94 Respiratory Rate 16 Blood Pressure 138/69 Pulse Oximetry 92 Oxygen Delivery Method Room Air BMI result Body Mass Index 34.9 Vital signs have been reviewed and appear to be correct. Blood pressure elevated. Heart rate normal. Respiratory rate normal. Temperature normal. Oxygen saturation normal. Appearance: Alert. Oriented X3. No acute distress. Head: Normal external exam. Normocephalic. Atraumatic. No Palencia signs noted. No raccoon eyes noted Eyes: PERRLA. EOMI. Conjunctiva and sclera normal. Eyelids normal. ENT: TM's Normal. Pharynx normal. Uvula midline. Moist mucous membranes. No trismus noted. No drooling noted. No muffled voice noted. Neck: Normal inspection. Neck supple. FROM. No adenopathy. Thyroid Normal. No meningeal signs. No neck mass noted. CVS: Normal heart rate and rhythm. Heart sound normal. No murmurs noted. Pulses normal throughout. Respiratory: No respiratory distress. Painless inspiration. Breath sounds normal. No wheezes/rales/rhonchi noted. Chest nontender. No accessory muscle usage noted or decreased air movement noted. Abdomen: Soft, left lower quadrant mild tenderness, no guarding, rebound tenderness. Bowel sounds normal in all 4 quadrants. No distention noted. No organomegaly noted. No visible injury noted. Back: No CVA tenderness. Full range of motion noted. Skin: Skin warm and dry. Normal skin color. Normal skin turgor. No rashes/lesions/lacerations noted. Extremities: No lower extremity edema. Extremities exhibit normal range of motion. Extremities nontender. Neuro: Oriented X 3. Cranial nerve exam: II-XII are grossly intact No motor deficit. No sensory deficit. Reflexes normal. Course Reevaluation(s) Reevaluation #1: acute mild diverticulitis with sepsis. patient is allergic to penicillin start Levophed and Flagyl, no evidence of severe sepsis or septic shock otherwise. Acute on chronic back pain due to multiple falls. Time: 10:00 Medical Decision Making Differential Diagnosis Differential Diagnoses: The differential diagnosis associated with the presentation includes ( diverticulitis, colitis, perforated viscus, small-bowel obstruction, pneumonia, pneumothorax, electrolyte derangement, severe anemia.) Admission/Observation Consideration of admission/observation: Escalation of care including admission/observation considered Consult Healthcare Provider Management of the patient was discussed with: Hospitalist ( Dr. Chaudhry) Lab Data MDM Lab Attestation statement: I reviewed the patient's lab results. 03/17/24 08:54 03/17/24 08:54 Labs: Lab Results 03/17/24 Range/Units 08:54 WBC 12.4 H (4.8-10.8) X10*3/uL RBC 3.40 L (4.20-5.50) X10*6/uL Hgb 10.1 L (12.0-16.0) g/dl Hct 30.0 L (37.0-47.0) % MCV 88.2 (80.0-98.0) fL MCH 29.7 (27.0-33.0) pg MCHC 33.7 (31.0-35.0) g/dl RDW 16.2 H (11.0-16.0) % Plt Count 391 D (160-400) X10*3/uL MPV 9.0 L (9.4-12.3) fL Immature Gran % (Auto) 0.6 H (0.0-0.4) % Neut % (Auto) 69.7 (45-73) % Lymph % (Auto) 19.2 L (20-40) % [place]hel % (Auto) 8.8 (2-11) % Eos % (Auto) 1.2 (0-4) % Baso % (Auto) 0.5 (0-2) % Lymph # (Auto) 2.4 (1.2-4.9) X10*3/uL [place] # (Auto) 1.1 (0.1-1.2) X10*3/uL Eos # (Auto) 0.2 (0.0-0.4) X10*3/uL Baso # (Auto) 0.1 (0.0-0.2) X10*3/uL Abs Immat Gran (auto) 0.08 H (0.00-0.03) X10*3/uL Absolute Neuts (auto) 8.6 H (2.0-8.3) x10*3/uL Absolute Nucleated RBC 0.000 (0.0-0.012) X10*3/uL Nucleated RBC % (auto) 0.0 (0.0-0.2) /100WBC PT 13.2 H (10.9-12.4) SEC INR 1.1 (0.9-1.1) Independent Interpretation I performed an independent interpretation of an: Plain X-Ray ( Chest: low lung volume without acute pulmonary pathology.) and CT Scan ( abdomen and pelvis:1. Moderate to severe colonic diverticulosis. There is suggestion of mild segmental wall thickening of the sigmoid colon with minimal pericolonic stranding. Findings are nonspecific but may represent a very mild active diverticulitis. 2. Bilateral renal cysts. ) Radiology Impression Discussion of test interpretation with radiology: I have reviewed the radiologist's reading. Medications Administered Generic Name Dose Route Start Last Admin Trade Name Freq PRN Reason Stop Dose Admin Sodium Chloride 1,000 mls @ 999 mls/hr 03/17/24 08:31 03/17/24 08:58 Ns IV 03/17/24 09:31 999 mls/hr .Q1H1M ONE Administration Discharge Plan Discharge Clinical Impression: Diverticulitis, Sepsis Patient Disposition: Admitted As Inpatient Print Language: Salvadorean
--- NOTE | 2024-03-17 08:31 | PC.NURSE ---
pt biba from home c/o lower abd pain radiating to upper chest w/ associated nonbloody diarrhea. hx diverticulitis - thinks it's a flare up. denies n/v/fever/chills. additional unwitnessed fall x 1 week ago out of bed. -headstrike, -loc, -thinners. came in on the - scans displayed broken right arm and left foot. upon ED arrival - pt a&ox4. vss and up to date. nsr on the cardiac rehabilitation program director. pt rating abd pain an 8/10. pt seemingly uncomfortable as she is unable to stay still and get in a comfortable position. right arm wrapped w/ cast/crystal bandage upon ED arrival. bruising/swelling noted to visualized portion of RUE. hand swollen/bruising/tender to the touch. cms intact. pulses palpable. ekg performed by tech. on RA w/o difficulty. no sob/wob noted. respirations even/unlabored. plan of care ongoing. call english placed within reach.
--- NOTE | 2024-03-17 08:39 | PC.NURSE ---
pt to CT at this time. will resume care of pt when she returns.
--- NOTE | 2024-03-17 08:57 | PC.NURSE ---
18gIV placed in the left AC - labs obtained/sent to lab. tech bedside obtaining 2nd set of cultures. scan results pending at this time.
[2024-03-17] MEDS: 0.9 % Sodium Chloride 1,000 ML 999 ML IV (08:58)
[2024-03-17 09:03] LABS: Basophils Absolute Auto 0.1 X10*3/uL (0.0-0.2); Basophils Percent Auto 0.5 % (0-2); Eosinophils Absolute Auto 0.2 X10*3/uL (0.0-0.4); Eosinophils Percent Auto 1.2 % (0-4); Hemoglobin 10.1 g/dl (12.0-16.0); Imm Gran Abs Auto 0.08 X10*3/uL (0.00-0.03); Imm Gran Pct Auto 0.6 % (0.0-0.4); Lymphocytes Absolute Auto 2.4 X10*3/uL (1.2-4.9); Lymphocytes Percent Auto 19.2 % (20-40); Mean Corpuscular HGB Conc 33.7 g/dl (31.0-35.0); Mean Corpuscular Hemoglobin 29.7 pg (27.0-33.0); Mean Corpuscular Volume 88.2 fL (80.0-98.0); Monocytes Absolute Auto 1.1 X10*3/uL (0.1-1.2); Monocytes Percent Auto 8.8 % (2-11); Neutrophils Absolute Auto 8.6 x10*3/uL (2.0-8.3); Neutrophils Percent Auto 69.7 % (45-73); Platelet Count 391 X10*3/uL (160-400); Red Cell Distribution Width 16.2 % (11.0-16.0); White Blood Count 12.4 X10*3/uL (4.8-10.8)
[2024-03-17 09:04] LABS: MANUAL DIFF FLAG NO
[2024-03-17 09:12] LABS: INTERNATIONAL NORM RATIO 1.1 (0.9-1.1); Prothrombin Time 13.2 SEC (10.9-12.4)
[2024-03-17 09:21] LABS: Alanine Aminotransferase 23 U/L (0-31); Albumin Level 3.7 g/dL (3.5-5.0); Alkaline Phosphatase 89 U/L (39-117); Anion Gap 12 (12-20); Aspartate Amino Transferase 28 U/L (5-31); Bilirubin Direct 0.3 mg/dL (0.0-0.5); Bilirubin Total 0.6 mg/dL (0.0-1.0); Blood Urea Nitrogen 19 mg/dL (9-16); Carbon Dioxide 28 mmol/L (22-29); Chloride 99 mmol/L (96-108); Creatinine Clr Calc Pharmacy 41.4; Estimated Glomerular Filt Rate > 60; Glucose Random 144 mg/dL (60-115); Lipase 15 U/L (8-78); Potassium 3.3 mmol/L (3.3-5.1); Sodium 136 mmol/L (135-145); Total Protein 7.3 g/dL (6.5-8.0)
[2024-03-17 09:22] LABS: Lactic Acid 1.6 mmol/L (0.5-2.0)
[2024-03-17 09:24] LABS: B Type Natriuretic Peptide 82 pg/mL (<100)
[2024-03-17 09:28] LABS: Troponin-I High Sensitivity 6.4 ng/L (<3.5-17.0)
[2024-03-17] MEDS: levoFLOXacin/D5W 500 MG/100 ML PIGGYBACK 100 MG IV (09:31)
[2024-03-17] MEDS: metroNIDAZOLE/NS 500 MG/100 ML PIGGYBACK 100 MG IV ×2 (09:31→16:49)
--- NOTE | 2024-03-17 09:36 | PC.NURSE ---
another 20gIV placed in the left forearm - abx administered per provider order. pt notified/aware of CT scan results and plan of being admitted. pt agreeable to plan of care. call english placed within reach.
[2024-03-17 09:41] LABS: Influenza A PCR NEGATIVE (Negative); Influenza B PCR NEGATIVE (Negative); Resp Syncy Virus RNA Qual PCR NEGATIVE (Negative); SARS COV2 PCR INHOUSE NEGATIVE (Negative)
[2024-03-17] MEDS: Morphine Sulfate 2 MG/ML CARTRIDGE 1 MG IVPUSH ×2 (09:49→10:45)
[2024-03-17 10:32] VITALS: BP 137/60; PULSE 96; RESP 16; TEMP 36.8; O2SAT 97
--- NOTE | 2024-03-17 10:48 | PC.NURSE ---
pt tearful upon reassessment. pt verbalizing pain level did not change s/p previous medication administration. provider notified/aware. medication administered per provider order. effectiveness pending.
--- NOTE | 2024-03-17 11:09 | PHA.MEDREC ---
Addendum entered by Emeterio Childress RPh 03/17/24 12:05: Med rec reviewed. Original Note: Pharmacy Consult ? Medication Reconciliation Pharmacy has completed the medication reconciliation. Spoke with patient to confirm medications. She takes gabapentin BID instead of q8h. Her lasix is scheduled. She takes a benadryl every night at bedtime. She confirms that she is taking duloxetine BID. She is taking tylenol-codeine #3 at home instead of #2. Her alprazolam is scheduled. She confirmed her metoprolol dose. She reports she took her morning medications today.
--- NOTE | 2024-03-17 11:56 | PC.NURSE ---
pt verbalizing decrease in pain s/p medication administration. pt repositioned upright, provided w/ water per pt request. pt aware of clear liquid diet ordered by admitting provider. otherwise vss and up to date. nsr on the potline monitor. respirations remain even/unlabored. waiting for bed assignment at this time. daughter bedside for support. plan of care ongoing. call english placed within reach.
--- NOTE | 2024-03-17 12:46 | PC.NURSE ---
bedpan utilized. UA obtained/sent to lab. pt speaking w/ hospital at this time.
[2024-03-17 12:58] LABS: Appearance Urine Clear; Color Urine Yellow; Glucose Urine UA Negative (Negative); Leukocyte Esterase Urine Negative (Negative); Nitrite Urine Negative (Negative); Specific Gravity - Urine 1.015 (1.005-1.025); Urine Blood Negative (Negative); Urine Ketones Negative (Negative); Urine Protein Negative (Neg-Trace)
--- NOTE | 2024-03-17 13:03 | P.HPHOSP_ITS ---
History of Present Illness Date of Service: 03/17/24 Attending physician on admission: Radha Zayas Chief Complaint: Diarrhea Joyce Waddell is 84 years old woman complex past medical history including COPD - not home oxygen, type 2 diabetes mellitus on sitagliptin/metformin, paroxysmal AFib not on anticoagulation, essential hypertension, gout, GERD, anxiety and hyperlipidemia presents to the ED complaining of generalized body aches, watery nonbloody diarrhea, generalized abdominal discomfort and mild pain with urination. She denied nausea or vomiting. She denies fevers or chills. She has chronic pain that she attributes to COPD. Recently (March 08) she recently to ED after she sustained a fall resulting in left 5th metatarsal fracture and right distal humeral fracture. She has been taking Tylenol with codeine without significant improvement of pain. Her past surgical history significant for stomach surgery for PUD when she was very region as well as hysterectomy. In the ED, she was found to have normal vital signs. Initially she presented with mild degree of tachycardia, 116 bpm. Blood workup showed mild leukocytosis of 12.4 (better that prior). There is no lactic acidosis. There are no electrolyte imbalances. Creatinine is 0.89 and BUN 19. LFTs, lipase, BNP and troponin are normal. ECG showed normal sinus rhythm, 99 bpm and incomplete RBBB without ischemic changes. Abdomen pelvis CT scan without contrast showed moderate to severe colonic diverticulosis and nonspecific changes in the sigmoid colon that could represent mild active diverticulitis. ED tx: Metronidazole 500 mg IV. Levaquin 500 mg IV. Review of Systems 2 Review of Systems: All 12 systems were reviewed and normal except as noted in HPI. 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) GERD (gastroesophageal reflux disease) Deep vein thrombosis (DVT) of left lower extremity Gout Anxiety disorder Type 2 diabetes mellitus without complication, without long-term current use of insulin Hyperlipidemia Hypertension Family History Mother Mental health disorder Sister CVA (cerebral vascular accident) Daughter Brain tumor Diabetes Bipolar 1 disorder Heart abnormality Mental illness in member of household Mental health disorder Father Substance use disorder Son Mental health disorder Surgical History Hx of hand surgery H/O local excision of skin lesion Social History Household Members: Family Housing: House Do you presently have visiting nurse or other home services: No Alcohol intake: former Patient Tobacco Use Status: Former Tobacco user Years Smoked: 10 yrs e-Cigarette/Vaping Use: Never Used Second Hand Smoke Exposure: No Advance Directives Date on File: 07/27/21 service: No Current occupational status: retired Cognitive needs: No Hearing needs: No Vision needs: Yes Meds Allergies Allergy/AdvReac Type Severity Reaction Status Date / Time Penicillins [PENICILLINS] Allergy Intermediate rash Verified 03/17/24 08:11 meperidine [Demerol] Allergy Unknown Nausea and Verified 03/17/24 08:11 Vomiting oxycodone Allergy Unknown Nausea and Verified 03/17/24 08:11 Vomiting Sulfa (Sulfonamide Allergy Unknown NAUSEA & Verified 03/17/24 08:11 Antibiotics) VOMITING, [SULFA (SULFONAMIDE GI upset ANTIBIOTICS)] warfarin [WARFARIN] AdvReac Severe UNKNOWN Verified 03/17/24 08:11 aspirin [ASPIRIN] AdvReac Mild gi bleed Verified 03/17/24 08:11 enoxaparin [From LOVENOX] AdvReac Unknown INTERNAL Verified 03/17/24 08:11 BLEEDING heparin [HEPARIN] AdvReac Unknown INTERNAL Verified 03/17/24 08:11 BLEEDING ibuprofen AdvReac Unknown GI bleed Verified 03/17/24 08:11 Chocolate AdvReac Diarrhea Verified 03/17/24 08:11 Active Medications: Current Medications Acetaminophen (Acetaminophen 325 Mg Tablet) 975 mg PO Q6H PRN PRN Reason: Pain, Mild (Pain Scale 1-3), fever or headache Albuterol/Ipratropium (Albuterol/Iprat 2.5/0.5mg 3 Ml Ampul.Neb) 3 ml INHALE Q4H PRN PRN Reason: wheezing Allopurinol (Allopurinol 100 Mg Tablet) 100 mg PO DAILY [facility] Alprazolam (Alprazolam 0.25 Mg Tablet) 0.25 mg PO DAILY [facility] Calcium Carbonate (Calcium Carbonate 750 Mg Tab.Chew) 750 mg PO Q4H PRN PRN Reason: Heartburn Diphenhydramine HCl (Diphenhydramine Hcl 25 Mg Capsule) 25 mg PO BEDTIME [place] Duloxetine HCl (Duloxetine Hcl 30 Mg Capsule.Dr) 30 mg PO BID [facility] Fluticasone Propionate (Fluticasone Propionate Nasal 16 Gm [place]) 2 spray NOSTRIL-B DAILY [facility] Gabapentin (Gabapentin 100 Mg Capsule) 100 mg PO BID [facility] Loratadine (Loratadine 10 Mg Tablet) 10 mg PO DAILY [facility] Losartan Potassium (Losartan Potassium 50 Mg Tablet) 50 mg PO DAILY [facility]; Protocol Metoprolol Succinate (Metoprolol Succinate Er 25 Mg Tab.Er.24h) 75 mg PO DAILY [facility]; Protocol Montelukast Sodium (Montelukast Sodium 10 Mg Tablet) 10 mg PO BEDTIME [facility] Non-Formulary Medication (Fluticasone Furoate [Arnuity Ellipta]) 1 inhalation INHALE DAILY [facility] Non-Formulary Medication (Pantoprazole) 40 mg PO DAILY@0630 [facility] Non-Formulary Medication (Rosuvastatin) 20 mg PO BEDTIME [facility] Ondansetron HCl (Ondansetron Hcl 4 Mg/2 Ml Vial) 4 mg IVPUSH Q8H PRN PRN Reason: Nausea and Vomiting Sodium Chloride (0.9 % Sodium Chloride Flush 3 Ml Syringe) 3 ml IVFLUSH QSHIFT [facility] Home Medications ?Medication ?Instructions ?Recorded ?Confirmed ?Last Taken ?Type metoprolol succinate 50 mg 75 mg PO DAILY 04/09/22 03/17/24 03/07/24 History tablet,extended release 24 hr duloxetine 30 mg capsule,delayed 30 mg PO BID 12/27/23 03/17/24 Unknown History release acetaminophen 500 mg tablet 1,000 mg PO Q6H PRN Pain 03/17/24 03/17/24 Unknown History diphenhydramine HCl 25 mg tablet 25 mg PO BEDTIME 03/17/24 03/17/24 Unknown History docusate sodium 100 mg capsule 200 mg PO DAILY PRN Constipation 03/17/24 03/17/24 Unknown History (Stool Softener) fluticasone propionate 50 2 spray intranasal DAILY 03/17/24 03/17/24 Unknown History mcg/actuation nasal spray,suspension furosemide 20 mg tablet 20 mg PO DAILY 03/17/24 03/17/24 Unknown History gabapentin 100 mg capsule 100 mg PO BID 03/17/24 03/17/24 Unknown History (Neurontin) loratadine 10 mg tablet 10 mg PO DAILY 03/17/24 03/17/24 Unknown History pantoprazole 40 mg tablet,delayed 40 mg PO DAILY@0630 03/17/24 03/17/24 Unknown History release Physical Exam 2 Vital Signs and Narrative: Vital Signs: Last Vital Signs Temp 98.2 F 03/17/24 10:32 Pulse 96 03/17/24 10:32 Resp 16 03/17/24 10:32 BP 137/60 03/17/24 10:32 Pulse Ox 97 03/17/24 10:32 O2 Del Method Room Air 03/17/24 10:32 BMI result Body Mass Index 34.9 Constitutional - Awake and Alert, No apparent distress. Afebrile. HEENT - PER, EOMI. Dry oral mucosa. Heart - RRR, No murmurs. Lungs - Normal lung expansion, Normal respiratory effort, No respiratory distress, CTA bilaterally Abdomen - Non distended. Non tenderness. Increased bowel sounds. Extremities - no calf tenderness bilaterally, no swelling Musculoskeletal - Normal inspection, normal ROM Skin - Warm/Dry Neurological - Alert & oriented x3. No focal weakness grossly noted. Normal speech. Psychological - Anxious affect Results Labs 03/17/24 08:54 03/17/24 08:54 Labs: Laboratory Results - last 24 hr 03/17/24 08:54 MCV 88.2 MCH 29.7 MCHC 33.7 RDW 16.2 H Plt Count 391 D MPV 9.0 L Immature Gran % (Auto) 0.6 H Neut % (Auto) 69.7 Lymph % (Auto) 19.2 L [place] % (Auto) 8.8 Eos % (Auto) 1.2 Baso % (Auto) 0.5 Lymph # (Auto) 2.4 [place] # (Auto) 1.1 Eos # (Auto) 0.2 Baso # (Auto) 0.1 Abs Immat Gran (auto) 0.08 H Absolute Neuts (auto) 8.6 H Absolute Nucleated RBC 0.000 Nucleated RBC % (auto) 0.0 PT 13.2 H INR 1.1 Anion Gap 12 Estim Creat Clear Calc 41.4 Estimated GFR > 60 Random Glucose 144 H Lactic Acid 1.6 Calcium 10.0 D Total Bilirubin 0.6 Direct Bilirubin 0.3 AST 28 ALT 23 Alkaline Phosphatase 89 Troponin I High Sens 6.4 B-Natriuretic Peptide 82 Total Protein 7.3 Albumin 3.7 Lipase 15 Influenza Type A (PCR) NEGATIVE Influenza Type B (PCR) NEGATIVE RSV RNA Qual (PCR) NEGATIVE SARS-CoV-2 RNA (RT-PCR) NEGATIVE Imaging Radiologist's Impressions: Impressions Chest X-Ray 03/17/24 08:31 IMPRESSION: Low lung volumes without acute pulmonary pathology. Electronically signed by: Madhav Everett MD 03/17/2024 09:06 AM [facility] Abdomen/Pelvis CT 03/17/24 08:43 IMPRESSION: 1. Moderate to severe colonic diverticulosis. There is suggestion of mild segmental wall thickening of the sigmoid colon with minimal pericolonic stranding. Findings are nonspecific but may represent a very mild active diverticulitis. 2. Bilateral renal cysts. Fleischner guidelines were followed. Electronically signed by: Madhav Everett MD 03/17/2024 09:03 AM [facility] Assessment and Plan (1) Diverticulitis: Status: Acute (2) SIRS (systemic inflammatory response syndrome): Status: Acute Plan Joyce aWddell is 84 y/o woman admitted with: * Mild diverticulitis with SIRS criteria; no severe sepsis. Admit to hospitalist service. Continue treatment with levofloxacin and metronidazole. Pain control with morphine IV. Advance diet as tolerated. Blood cultures were obtained -will follow results. * Diarrhea likely secondary to above. Check C. diff and GI panel. Encourage order hydration. * Type 2 diabetes mellitus. Sitagliptin with metformin on hold as the patient be eating full liquid diet. Blood glucose checks before meals at bedtime. Insulin sliding scale. * Paroxysmal atrial fib, currently rate and rhythm controlled. Not on anticoagulation -hx of major bleedings. Continue metoprolol. * Hyperlipidemia. Continue statin. * Essential hypertension. Continue metoprolol and losartan. * COPD. Not in exacerbation. Continue inhalers, montelukast and fluticasone. DuoNeb every 4 hours as needed for wheezing. * Gout. Continue allopurinol. * GERD. Continue PPI. * Recent right humerus + left 5th metatarsal fractures. Pain control with Tylenol and morphine as needed. * Mood disorder. Continue Xanax as needed, gabapentin and duloxetine. Code status: Full DVT prophylaxis: SCDs only (pt has hx of significant bleeding attributed to Lovenox and heparin). Patient will need hospitalization for at least 2 midnights for mild diverticulitis with SIRS criteria treatment in the setting of multiple underlying medical comorbidities for IV antibiotic therapy. Quality Stroke Does the patient have a stroke diagnosis?: No VTE Prior VTE?: No VTE Risk Level:: Medical - moderate - high VTE Device Contraindication: Treatment Not Indicated VTE Drug Contraindication: N/A - Med Ordered
[2024-03-17 14:31] VITALS: BMI 36.2
[2024-03-17 15:34] VITALS: BP 151/65; PULSE 113; RESP 16; TEMP 36.6; O2SAT 96
[2024-03-17] MEDS: Morphine Sulfate 2 MG/ML CARTRIDGE IVPUSH ×2 (16:31→21:10)
[2024-03-17] MEDS: 0.9 % Sodium Chloride Flush 3 ML SYRINGE IVFLUSH ×2 (16:50→22:01)
[2024-03-17 17:07] LABS: Glucose, Whole Blood 116 mg/dL (60-115)
[2024-03-17 19:47] VITALS: BP 150/74; PULSE 115; RESP 17; TEMP 36.5; O2SAT 95
[2024-03-17] MEDS: Salmeterol Xinafoate 50 MCG BLST.W.DEV 1 PUFF INHALE (20:23)
[2024-03-17 20:38] LABS: Glucose, Whole Blood 128 mg/dL (60-115)
[2024-03-17] MEDS: diphenhydrAMINE HCL 25 MG CAPSULE PO (22:01)
[2024-03-17] MEDS: Montelukast Sodium 10 MG TABLET PO (22:01)
[2024-03-17] MEDS: Gabapentin 100 MG CAPSULE PO (22:01)
[2024-03-17] MEDS: DULoxetine HCl 30 MG CAPSULE.DR PO (22:01)
[2024-03-17] MEDS: ALPRAZolam 0.25 MG TABLET PO (22:01)
[2024-03-18] VITALS (11 sets, daily range): BP systolic 147–190; BP diastolic 58–96; PULSE 89–116; RESP 18–20; TEMP 36.2–36.9; O2SAT 92–96
[2024-03-18] MEDS: metroNIDAZOLE/NS 500 MG/100 ML PIGGYBACK 100 MG IV ×3 (01:11→16:59)
[2024-03-18] MEDS: Morphine Sulfate 2 MG/ML CARTRIDGE IVPUSH ×4 (01:46→17:00)
[2024-03-18] MEDS: Labetalol HCL 100 MG/20 ML VIAL 10 MG IVPUSH (05:16)
[2024-03-18] MEDS: Omeprazole 20 MG CAPSULE.DR PO (05:32)
--- NOTE | 2024-03-18 05:40 | PC.NURSE ---
Addendum entered by GRADY Rodrigues 03/18/24 06:25: repeat bp was 148/80 & HR 89, patient says she feels fine Original Note: patients BP was 190/82, HR [address] Varela notified and ordered tele monitor and 1x dose 10mg labetalol IV push. BP before administration 190/96 & HR 116.
[2024-03-18 06:40] LABS: MANUAL DIFF FLAG NO
[2024-03-18 06:49] LABS: Basophils Percent Auto 0.4 % (0-2); Eosinophils Absolute Auto 0.1 X10*3/uL (0.0-0.4); Hematocrit 29.8 % (37.0-47.0); Hemoglobin 9.7 g/dl (12.0-16.0); Imm Gran Abs Auto 0.06 X10*3/uL (0.00-0.03); Imm Gran Pct Auto 0.6 % (0.0-0.4); Lymphocytes Percent Auto 19.8 % (20-40); Mean Corpuscular HGB Conc 32.6 g/dl (31.0-35.0); Mean Corpuscular Hemoglobin 29.2 pg (27.0-33.0); Mean Corpuscular Volume 89.8 fL (80.0-98.0); Mean Platelet Volume 9.4 fL (9.4-12.3); Monocytes Percent Auto 9.3 % (2-11); Neutrophils Absolute Auto 7.1 x10*3/uL (2.0-8.3); Neutrophils Percent Auto 68.9 % (45-73); Platelet Count 428 X10*3/uL (160-400); Red Blood Count 3.32 X10*6/uL (4.20-5.50); Red Cell Distribution Width 16.5 % (11.0-16.0); White Blood Count 10.3 X10*3/uL (4.8-10.8)
[2024-03-18 07:08] LABS: Alanine Aminotransferase 18 U/L (0-31); Albumin Level 3.5 g/dL (3.5-5.0); Alkaline Phosphatase 80 U/L (39-117); Anion Gap 14 (12-20); Aspartate Amino Transferase 22 U/L (5-31); Bilirubin Total 0.5 mg/dL (0.0-1.0); Blood Urea Nitrogen 12 mg/dL (9-16); Calcium 9.4 mg/dL (8.4-10.2); Carbon Dioxide 25 mmol/L (22-29); Chloride 102 mmol/L (96-108); Creatinine Clr Calc Pharmacy 50.8; Estimated Glomerular Filt Rate > 60; Glucose Random 153 mg/dL (60-115); Potassium 3.2 mmol/L (3.3-5.1); Sodium 138 mmol/L (135-145); Total Protein 6.7 g/dL (6.5-8.0)
[2024-03-18] MEDS: Salmeterol Xinafoate 50 MCG BLST.W.DEV 1 PUFF INHALE ×2 (07:13→20:24)
[2024-03-18] MEDS: Fluticasone Propionate 100 MCG BLST.W.DEV 1 PUFF INHALE (07:13)
[2024-03-18 07:50] LABS: Glucose, Whole Blood 129 mg/dL (60-115)
[2024-03-18] MEDS: Atorvastatin Calcium 80 MG TABLET PO (08:27)
[2024-03-18] MEDS: Metoprolol Succinate ER 25 MG TAB.ER.24H 75 MG PO (08:27)
[2024-03-18] MEDS: DULoxetine HCl 30 MG CAPSULE.DR PO ×2 (08:27→22:40)
[2024-03-18] MEDS: Gabapentin 100 MG CAPSULE PO ×2 (08:28→22:40)
[2024-03-18] MEDS: allopurinoL 100 MG TABLET PO (08:28)
[2024-03-18] MEDS: Losartan Potassium 50 MG TABLET PO (08:28)
[2024-03-18] MEDS: Loratadine 10 MG TABLET PO (08:28)
[2024-03-18] MEDS: 0.9 % Sodium Chloride Flush 3 ML SYRINGE IVFLUSH ×3 (08:29→23:19)
--- NOTE | 2024-03-18 08:37 | P.PNIM_ITS ---
Subjective Subjective Date of Service: 03/18/24 Interval History: back pain, abd pain Physical Exam 2 Vital Signs: Vital Signs: Last Vital Signs Temp 98.1 F 03/18/24 08:00 Pulse 109 H 03/18/24 08:00 Resp 19 03/18/24 08:00 BP 148/80 H 03/18/24 06:15 Pulse Ox 96 03/18/24 08:00 O2 Del Method Room Air 03/18/24 08:00 BMI result Body Mass Index 36.2 General: AO X 3, axious, in distress Resp: CTA bilateral, no accessory muscles used CVS: S1,S2,RRR GI: soft, tender, non distended Neuro: motor grossly intact, alert Psych: appropriate affect, appropriate insight Objective Data Active Medications Acetaminophen (Acetaminophen 325 Mg Tablet) 975 mg PO Q6H PRN PRN Reason: Pain, Mild (Pain Scale 1-3), fever or headache Albuterol/Ipratropium (Albuterol/Iprat 2.5/0.5mg 3 Ml Ampul.Neb) 3 ml INHALE Q4H PRN PRN Reason: wheezing Allopurinol (Allopurinol 100 Mg Tablet) 100 mg PO DAILY [facility]S INCLUDE 234 BEDS AT THE [facility] Last Admin: 03/18/24 08:28 Dose: 100 mg Documented By: AVE Alprazolam (Alprazolam 0.25 Mg Tablet) 0.25 mg PO BEDTIME COUNTS INCLUDE 234 BEDS AT THE [facility] Last Admin: 03/17/24 22:01 Dose: 0.25 mg Documented By: HAWA Alprazolam (Alprazolam 0.25 Mg Tablet) 0.125 mg PO TID PRN PRN Reason: Anxiety Atorvastatin Calcium (Atorvastatin Calcium 80 Mg Tablet) 80 mg PO DAILY COUNTS INCLUDE 234 BEDS AT THE [facility] Last Admin: 03/18/24 08:27 Dose: 80 mg Documented By: AVE Calcium Carbonate (Calcium Carbonate 750 Mg Tab.Chew) 750 mg PO Q4H PRN PRN Reason: Heartburn Diphenhydramine HCl (Diphenhydramine Hcl 25 Mg Capsule) 25 mg PO BEDTIME COUNTS INCLUDE 234 BEDS AT THE [facility] Last Admin: 03/17/24 22:01 Dose: 25 mg Documented By: [place] Duloxetine HCl (Duloxetine Hcl 30 Mg Capsule.) 30 mg PO BID COUNTS INCLUDE 234 BEDS AT THE [facility] Last Admin: 03/18/24 08:27 Dose: 30 mg Documented By: AVE Fluticasone Propionate (Fluticasone Propionate 100 Mcg Blst.W.Dev) 1 puff INHALE RBID COUNTS INCLUDE 234 BEDS AT THE [facility] Last Admin: 03/18/24 07:13 Dose: 1 puff Documented By: LOUIE Fluticasone Propionate (Fluticasone Propionate Nasal 16 Gm [place]) 2 spray NOSTRIL-B DAILY COUNTS INCLUDE 234 BEDS AT THE [facility] Gabapentin (Gabapentin 100 Mg Capsule) 100 mg PO BID COUNTS INCLUDE 234 BEDS AT THE [facility] Last Admin: 03/18/24 08:28 Dose: 100 mg Documented By: AVE Glucose (Glucose Gel 15 Gm Gel..Gram.) 15 gm PO Q15M PRN; Protocol PRN Reason: per Hypoglycemia Standing Ord. Dextrose (D10) 250 mls @ 750 mls/hr IV Q15M PRN; Protocol PRN Reason: per Hypoglycemia Standing Ord. Metronidazole (Flagyl) 500 mg in 100 mls @ 100 mls/hr IV Q8H COUNTS INCLUDE 234 BEDS AT THE [facility] Last Admin: 03/18/24 08:30 Dose: 100 mls/hr Documented By: AVE Levofloxacin (Levaquin) 750 mg in 150 mls @ 100 mls/hr IV Q48H COUNTS INCLUDE 234 BEDS AT THE [facility] Insulin Human Lispro (Insulin Lispro 100 Unit/Ml 3 Ml Vial) 0 unit SUBCUT QIDACHS COUNTS INCLUDE 234 BEDS AT THE [facility]; Protocol Last Admin: 03/18/24 08:29 Dose: Not Given Documented By: AVE Non-Admin Reason: No Insulin Coverage Loperamide HCl (Loperamide Hcl 2 Mg Capsule) 2 mg PO Q6H PRN PRN Reason: Diarrhea Loratadine (Loratadine 10 Mg Tablet) 10 mg PO DAILY COUNTS INCLUDE 234 BEDS AT THE [facility] Last Admin: 03/18/24 08:28 Dose: 10 mg Documented By: AVE Losartan Potassium (Losartan Potassium 50 Mg Tablet) 50 mg PO DAILY COUNTS INCLUDE 234 BEDS AT THE [facility]; Protocol Last Admin: 03/18/24 08:28 Dose: 50 mg Documented By: AVE Metoprolol Succinate (Metoprolol Succinate Er 25 Mg Tab.Er.24h) 75 mg PO DAILY [facility]S INCLUDE 234 BEDS AT THE [facility]; Protocol Last Admin: 03/18/24 08:27 Dose: 75 mg Documented By: AVE Montelukast Sodium (Montelukast Sodium 10 Mg Tablet) 10 mg PO BEDTIME COUNTS INCLUDE 234 BEDS AT THE [facility] Last Admin: 03/17/24 22:01 Dose: 10 mg Documented By: HAWA Morphine Sulfate (Morphine Sulfate 2 Mg/Ml Cartridge) 2 mg IVPUSH Q4H PRN; Protocol PRN Reason: Pain, Severe (Pain Scale 7-10) Last Admin: 03/18/24 08:26 Dose: 2 mg Documented By: AVE Omeprazole (Omeprazole 20 Mg Capsule.Dr) 20 mg PO DAILY@0630 COUNTS INCLUDE 234 BEDS AT THE [facility] Last Admin: 03/18/24 05:32 Dose: 20 mg Documented By: [facility] Ondansetron HCl (Ondansetron Hcl 4 Mg/2 Ml Vial) 4 mg IVPUSH Q8H PRN PRN Reason: Nausea and Vomiting Salmeterol Xinafoate (Salmeterol Xinafoate 50 Mcg Blst.W.Dev) 1 puff INHALE RBID COUNTS INCLUDE 234 BEDS AT THE [facility] Last Admin: 03/18/24 07:13 Dose: 1 puff Documented By: LOUIE Sodium Chloride (0.9 % Sodium Chloride Flush 3 Ml Syringe) 3 ml IVFLUSH QSHIFT COUNTS INCLUDE 234 BEDS AT THE [facility] Last Admin: 03/18/24 08:29 Dose: 3 ml Documented By: AVE Labs 03/18/24 06:04 03/18/24 06:04 Labs: Laboratory Results - last 24 hr 03/17/24 03/17/24 03/17/24 08:54 12:46 17:00 MCV 88.2 MCH 29.7 MCHC 33.7 RDW 16.2 H Plt Count 391 D MPV 9.0 L Immature Gran % (Auto) 0.6 H Neut % (Auto) 69.7 Lymph % (Auto) 19.2 L [place] % (Auto) 8.8 Eos % (Auto) 1.2 Baso % (Auto) 0.5 Lymph # (Auto) 2.4 [place] # (Auto) 1.1 Eos # (Auto) 0.2 Baso # (Auto) 0.1 Abs Immat Gran (auto) 0.08 H Absolute Neuts (auto) 8.6 H Absolute Nucleated RBC 0.000 Nucleated RBC % (auto) 0.0 PT 13.2 H INR 1.1 Anion Gap 12 Estim Creat Clear Calc 41.4 Estimated GFR > 60 POC Glucose 116 H Random Glucose 144 H Lactic Acid 1.6 Calcium 10.0 D Total Bilirubin 0.6 Direct Bilirubin 0.3 AST 28 ALT 23 Alkaline Phosphatase 89 Troponin I High Sens 6.4 B-Natriuretic Peptide 82 Total Protein 7.3 Albumin 3.7 Lipase 15 Urine Color Yellow Urine Appearance Clear Urine pH 7.0 Ur Specific [place] 1.015 Urine Protein Negative Urine Glucose (UA) Negative Urine Ketones Negative Urine Blood Negative Urine Nitrite Negative Ur Leukocyte Esterase Negative Influenza Type A (PCR) NEGATIVE Influenza Type B (PCR) NEGATIVE RSV RNA Qual (PCR) NEGATIVE SARS-CoV-2 RNA (RT-PCR) NEGATIVE 03/17/24 03/18/24 03/18/24 20:33 06:04 07:46 MCV 89.8 MCH 29.2 MCHC 32.6 RDW 16.5 H Plt Count 428 H MPV 9.4 Immature Gran % (Auto) 0.6 H Neut % (Auto) 68.9 Lymph % (Auto) 19.8 L [place] % (Auto) 9.3 Eos % (Auto) 1.0 Baso % (Auto) 0.4 Lymph # (Auto) 2.0 [place] # (Auto) 1.0 Eos # (Auto) 0.1 Baso # (Auto) 0.0 Abs Immat Gran (auto) 0.06 H Absolute Neuts (auto) 7.1 Absolute Nucleated RBC 0.000 Nucleated RBC % (auto) 0.0 PT INR Anion Gap 14 Estim Creat Clear Calc 50.8 Estimated GFR > 60 POC Glucose 128 H 129 H Random Glucose 153 H Lactic Acid Calcium 9.4 Total Bilirubin 0.5 Direct Bilirubin AST 22 ALT 18 Alkaline Phosphatase 80 Troponin I High Sens B-Natriuretic Peptide Total Protein 6.7 Albumin 3.5 Lipase Urine Color Urine Appearance Urine pH Ur Specific [place] Urine Protein Urine Glucose (UA) Urine Ketones Urine Blood Urine Nitrite Ur Leukocyte Esterase Influenza Type A (PCR) Influenza Type B (PCR) RSV RNA Qual (PCR) SARS-CoV-2 RNA (RT-PCR) Assessment and Plan (1) Anxiety disorder: Status: Acute Plan 84F PMH VD, diabetes, paroxysmal atrial fibrillation, hypertension, gout, GERD, anxiety, hyperlipidemia presented with abdominal pain diarrhea Acute diverticulitis Continue levofloxacin and Flagyl, check stool studies On full liquid diet, advanced as tolerated Pain control Paroxysmal atrial fibrillation Continue Toprol, not on anticoagulation due to history of major bleeding Diabetes Insulin sliding scale COPD Stable Hypertension Metoprolol, losartan Anxiety Xanax, Cymbalta Gout Continue allopurinol Recent right humerus and left 5th metatarsal fracture Pain control, PT/OT DVT prophylaxis-mechanical due to history of bleeding even with prophylactic anticoagulation Full code reason for continued hospitalization: IV antibiotics for diverticulitis, awaiting tolerance of solids Quality Stroke Does the patient have a stroke diagnosis?: No VTE Prior VTE?: No VTE Risk Level:: Medical - moderate - high VTE Device Contraindication: Treatment Not Indicated VTE Drug Contraindication: N/A - Med Ordered
[2024-03-18 11:20] LABS: Glucose, Whole Blood 141 mg/dL (60-115)
[2024-03-18 12:27] LABS: Adenovirus F 40/41 Not Detected (Not Detect.); Astrovirus Not Detected (Not Detect.); Campylobacter Not Detected (Not Detect.); Cryptosporidium Not Detected (Not Detect.); Cyclospora cayetanensis Not Detected (Not Detect.); E. coli EAEC Not Detected (Not Detect.); E. coli EPEC Not Detected (Not Detect.); E. coli ETEC Not Detected (Not Detect.); E. coli STEC Not Detected (Not Detect.); Entamoeba histolytica Not Detected (Not Detect.); Giardia lamblia Not Detected (Not Detect.); Norovirus GI/GII Not Detected (Not Detect.); Plesiomonas shigelloides Not Detected (Not Detect.); Rotavirus A Not Detected (Not Detect.); Salmonella Not Detected (Not Detect.); Sapovirus Not Detected (Not Detect.); Shigella sp./EIEC Not Detected (Not Detect.); Vibrio Not Detected (Not Detect.); Vibrio Cholerae Not Detected (Not Detect.); Yersinia enterocolitica Not Detected (Not Detect.)
[2024-03-18 12:36] LABS: CDiff Gene PCR NEGATIVE (Negative)
--- NOTE | 2024-03-18 15:45 | MHC.CM.PN ---
CM MET WITH PT AND BROTHER AT BEDSIDE PT LIVES AT HOME WITH HER DAUGHTER AND ALSO HAS TWO OTHER CHILDREN AND BROTHER AVAILABLE DAILY TO ASSIST PT USES A CANE TO AMBULATE AND NO OTHER DME SHE HAS A HCP ON FILE PCP: ADRIANNA DRISCOLL IMM DELIVERED PT IS NOT INTERESTED IN STR SHE WOULD LIKE TO DC HOME WITH [facility] FOR PT/OT/SN REFERRAL PLACED TO [place] PER DISCUSSION WITH PT AND FAMILY FAMILY WILL TRANSPORT
[2024-03-18 16:44] LABS: Glucose, Whole Blood 134 mg/dL (60-115)
[2024-03-18 20:13] LABS: Glucose, Whole Blood 183 mg/dL (60-115)
[2024-03-18] MEDS: Morphine Sulfate 4 MG/ML CARTRIDGE IVPUSH (20:24)
[2024-03-18] MEDS: diphenhydrAMINE HCL 25 MG CAPSULE PO (22:40)
[2024-03-18] MEDS: ALPRAZolam 0.25 MG TABLET PO (22:40)
[2024-03-18] MEDS: Montelukast Sodium 10 MG TABLET PO (22:46)
[2024-03-19] VITALS (11 sets, daily range): BP systolic 126–148; BP diastolic 56–84; PULSE 78–102; RESP 14–20; TEMP 36.4–37.7; O2SAT 92–97
[2024-03-19] MEDS: Morphine Sulfate 2 MG/ML CARTRIDGE IVPUSH ×5 (01:26→20:57)
[2024-03-19] MEDS: metroNIDAZOLE/NS 500 MG/100 ML PIGGYBACK 100 MG IV ×3 (01:30→16:16)
[2024-03-19] MEDS: Omeprazole 20 MG CAPSULE.DR PO (05:52)
[2024-03-19 07:04] LABS: Hematocrit 30.3 % (37.0-47.0); Hemoglobin 10.1 g/dl (12.0-16.0); Mean Corpuscular HGB Conc 33.3 g/dl (31.0-35.0); Mean Corpuscular Hemoglobin 29.5 pg (27.0-33.0); Mean Corpuscular Volume 88.6 fL (80.0-98.0); Mean Platelet Volume 9.2 fL (9.4-12.3); Platelet Count 441 X10*3/uL (160-400); Red Blood Count 3.42 X10*6/uL (4.20-5.50); Red Cell Distribution Width 16.6 % (11.0-16.0); White Blood Count 13.6 X10*3/uL (4.8-10.8)
[2024-03-19 07:07] LABS: Anion Gap 15 (12-20); Blood Urea Nitrogen 12 mg/dL (9-16); Calcium 9.5 mg/dL (8.4-10.2); Carbon Dioxide 25 mmol/L (22-29); Chloride 100 mmol/L (96-108); Creatinine Clr Calc Pharmacy 50.8; Estimated Glomerular Filt Rate > 60; Glucose Fasting 150 mg/dL (60-99); Potassium 3.6 mmol/L (3.3-5.1); Sodium 136 mmol/L (135-145)
[2024-03-19 07:29] LABS: Glucose, Whole Blood 150 mg/dL (60-115)
[2024-03-19] MEDS: Salmeterol Xinafoate 50 MCG BLST.W.DEV 1 PUFF INHALE ×2 (07:48→20:51)
[2024-03-19] MEDS: Fluticasone Propionate 100 MCG BLST.W.DEV 1 PUFF INHALE (07:48)
[2024-03-19] MEDS: Losartan Potassium 50 MG TABLET PO (08:28)
[2024-03-19] MEDS: Loratadine 10 MG TABLET PO (08:28)
[2024-03-19] MEDS: Gabapentin 100 MG CAPSULE PO ×2 (08:28→20:57)
[2024-03-19] MEDS: Atorvastatin Calcium 80 MG TABLET PO (08:28)
[2024-03-19] MEDS: Metoprolol Succinate ER 25 MG TAB.ER.24H 75 MG PO (08:28)
[2024-03-19] MEDS: DULoxetine HCl 30 MG CAPSULE.DR PO ×2 (08:29→20:57)
[2024-03-19] MEDS: allopurinoL 100 MG TABLET PO (08:31)
[2024-03-19] MEDS: 0.9 % Sodium Chloride Flush 3 ML SYRINGE IVFLUSH (08:37)
[2024-03-19] MEDS: Acetaminophen 325 MG TABLET 975 MG PO (08:39)
--- NOTE | 2024-03-19 08:47 | P.PNIM_ITS ---
Subjective Subjective Date of Service: 03/19/24 Interval History: back pain, abd pain Physical Exam 2 Vital Signs: Vital Signs: Last Vital Signs Temp 98.0 F 03/19/24 07:24 Pulse 78 03/19/24 07:49 Resp 14 03/19/24 07:49 BP 129/72 03/19/24 07:24 Pulse Ox 94 03/19/24 07:24 O2 Del Method Room Air 03/19/24 07:24 BMI result Body Mass Index 36.2 General: AO X 3, axious, in distress Resp: CTA bilateral, no accessory muscles used CVS: S1,S2,RRR GI: soft, tender, non distended Neuro: motor grossly intact, alert Psych: appropriate affect, appropriate insight Objective Data Active Medications Acetaminophen (Acetaminophen 325 Mg Tablet) 975 mg PO Q6H PRN PRN Reason: Pain, Mild (Pain Scale 1-3), fever or headache Last Admin: 03/19/24 08:39 Dose: 975 mg Documented By: LUCI Albuterol/Ipratropium (Albuterol/Iprat 2.5/0.5mg 3 Ml Ampul.Neb) 3 ml INHALE Q4H PRN PRN Reason: wheezing Allopurinol (Allopurinol 100 Mg Tablet) 100 mg PO DAILY [facility] Last Admin: 03/19/24 08:31 Dose: 100 mg Documented By: LUCI Alprazolam (Alprazolam 0.25 Mg Tablet) 0.25 mg PO BEDTIME [facility] Last Admin: 03/18/24 22:40 Dose: 0.25 mg Documented By: SHELTON Alprazolam (Alprazolam 0.25 Mg Tablet) 0.125 mg PO TID PRN PRN Reason: Anxiety Atorvastatin Calcium (Atorvastatin Calcium 80 Mg Tablet) 80 mg PO DAILY [facility] Last Admin: 03/19/24 08:28 Dose: 80 mg Documented By: LUCI Calcium Carbonate (Calcium Carbonate 750 Mg Tab.Chew) 750 mg PO Q4H PRN PRN Reason: Heartburn Diphenhydramine HCl (Diphenhydramine Hcl 25 Mg Capsule) 25 mg PO BEDTIME [facility] Last Admin: 03/18/24 22:40 Dose: 25 mg Documented By: SHELTON Duloxetine HCl (Duloxetine Hcl 30 Mg Capsule.) 30 mg PO BID [facility] Last Admin: 03/19/24 08:29 Dose: 30 mg Documented By: LUCI Fluticasone Propionate (Fluticasone Propionate 100 Mcg Blst.W.Dev) 1 puff INHALE RBID [facility] Last Admin: 03/19/24 07:48 Dose: 1 puff Documented By: PURVI Fluticasone Propionate (Fluticasone Propionate Nasal 16 Gm Hollis) 2 spray NOSTRIL-B DAILY [facility] Last Admin: 03/18/24 09:46 Dose: Not Given Documented By: AVE Non-Admin Reason: Med Not Available Gabapentin (Gabapentin 100 Mg Capsule) 100 mg PO BID [facility] Last Admin: 03/19/24 08:28 Dose: 100 mg Documented By: LUCI Glucose (Glucose Gel 15 Gm Gel..Gram.) 15 gm PO Q15M PRN; Protocol PRN Reason: per Hypoglycemia Standing Ord. Dextrose (D10) 250 mls @ 750 mls/hr IV Q15M PRN; Protocol PRN Reason: per Hypoglycemia Standing Ord. Metronidazole (Flagyl) 500 mg in 100 mls @ 100 mls/hr IV Q8H [facility] Last Admin: 03/19/24 08:37 Dose: 100 mls/hr Documented By: LUCI Levofloxacin (Levaquin) 750 mg in 150 mls @ 100 mls/hr IV Q48H [facility] Insulin Human Lispro (Insulin Lispro 100 Unit/Ml 3 Ml Vial) 0 unit SUBCUT QIDACHS [facility]; Protocol Last Admin: 03/19/24 07:33 Dose: Not Given Documented By: LUCI Non-Admin Reason: No Insulin Coverage Loperamide HCl (Loperamide Hcl 2 Mg Capsule) 2 mg PO Q6H PRN PRN Reason: Diarrhea Loratadine (Loratadine 10 Mg Tablet) 10 mg PO DAILY [facility] Last Admin: 03/19/24 08:28 Dose: 10 mg Documented By: LUCI Losartan Potassium (Losartan Potassium 50 Mg Tablet) 50 mg PO DAILY [facility]; Protocol Last Admin: 03/19/24 08:28 Dose: 50 mg Documented By: LUCI Metoprolol Succinate (Metoprolol Succinate Er 25 Mg Tab.Er.24h) 75 mg PO DAILY [facility]; Protocol Last Admin: 03/19/24 08:28 Dose: 75 mg Documented By: LUCI Montelukast Sodium (Montelukast Sodium 10 Mg Tablet) 10 mg PO BEDTIME [facility] Last Admin: 03/18/24 22:46 Dose: 10 mg Documented By: SHELTON Morphine Sulfate (Morphine Sulfate 2 Mg/Ml Cartridge) 2 mg IVPUSH Q3H PRN; Protocol PRN Reason: Pain, Severe (Pain Scale 7-10) Last Admin: 03/19/24 06:26 Dose: 2 mg Documented By: SHELTON Omeprazole (Omeprazole 20 Mg Capsule.Dr) 20 mg PO DAILY@0630 [facility] Last Admin: 03/19/24 05:52 Dose: 20 mg Documented By: ELAINE Ondansetron HCl (Ondansetron Hcl 4 Mg/2 Ml Vial) 4 mg IVPUSH Q8H PRN PRN Reason: Nausea and Vomiting Salmeterol Xinafoate (Salmeterol Xinafoate 50 Mcg Blst.W.Dev) 1 puff INHALE RBID [facility] Last Admin: 03/19/24 07:48 Dose: 1 puff Documented By: PURVI Sodium Chloride (0.9 % Sodium Chloride Flush 3 Ml Syringe) 3 ml IVFLUSH QSHIFT [facility] Last Admin: 03/19/24 08:37 Dose: 3 ml Documented By: LUCI Labs 03/19/24 05:33 03/19/24 05:33 Labs: Laboratory Results - last 24 hr 03/18/24 03/18/24 03/18/24 10:33 11:11 16:30 MCV MCH MCHC RDW Plt Count MPV Absolute Nucleated RBC Nucleated RBC % (auto) Anion Gap Estim Creat Clear Calc Estimated GFR POC Glucose 141 H 134 H Fasting Glucose Calcium Stl C. cayetanensis PCR Not Detected Stool Rotavirus A PCR Not Detected Stl Adenov F 40/41 PCR Not Detected Stool Astrovirus (PCR) Not Detected Stool Campylobacter PCR Not Detected Stool Cryptosporidium PCR Not Detected Stl Sh Tox Pr E STEC PCR Not Detected Stool E coli O157 PCR Not applicable Stl Enterotoxigenic E PCR Not Detected Stool EPEC (PCR) Not Detected Stool EAEC (PCR) Not Detected Stl E. histolytica PCR Not Detected Stool Giardia Lamblia PCR Not Detected Stl P. shigelloides PCR Not Detected Stool Salmonella PCR Not Detected Stool Sapovirus (PCR) Not Detected Stl Shigella/EIEC PCR Not Detected St Y.enterocolitica PCR Not Detected Stool Vibrio (PCR) Not Detected Stl Vibrio cholerae PCR Not Detected Stl Norovirus GI/GII PCR Not Detected C. difficile Tox B Gene NEGATIVE 03/18/24 03/19/24 03/19/24 20:03 05:33 07:26 MCV 88.6 MCH 29.5 MCHC 33.3 RDW 16.6 H Plt Count 441 H MPV 9.2 L Absolute Nucleated RBC 0.000 Nucleated RBC % (auto) 0.0 Anion Gap 15 Estim Creat Clear Calc 50.8 Estimated GFR > 60 POC Glucose 183 H 150 H Fasting Glucose 150 H Calcium 9.5 Stl C. cayetanensis PCR Stool Rotavirus A PCR Stl Adenov F 40/41 PCR Stool Astrovirus (PCR) Stool Campylobacter PCR Stool Cryptosporidium PCR Stl Sh Tox Pr E STEC PCR Stool E coli O157 PCR Stl Enterotoxigenic E PCR Stool EPEC (PCR) Stool EAEC (PCR) Stl E. histolytica PCR Stool Giardia Lamblia PCR Stl P. shigelloides PCR Stool Salmonella PCR Stool Sapovirus (PCR) Stl Shigella/EIEC PCR St Y.enterocolitica PCR Stool Vibrio (PCR) Stl Vibrio cholerae PCR Stl Norovirus GI/GII PCR C. difficile Tox B Gene Microbiology Microbiology Results: Microbiology 03/17/24 09:05 Blood Culture - Preliminary Blood - Venous No growth after 24 hours. 03/17/24 08:54 Blood Culture - Preliminary Blood - Venous No growth after 24 hours. Assessment and Plan (1) Anxiety disorder: Status: Acute Plan 84F PMH VD, diabetes, paroxysmal atrial fibrillation, hypertension, gout, GERD, anxiety, hyperlipidemia presented with abdominal pain diarrhea Acute diverticulitis Continue levofloxacin and Flagyl On solid diet Pain control Paroxysmal atrial fibrillation Continue Toprol, not on anticoagulation due to history of major bleeding Diabetes Insulin sliding scale COPD Stable Hypertension Metoprolol, losartan Anxiety Xanax, Cymbalta Gout Continue allopurinol Recent right humerus and left 5th metatarsal fracture Pain control, PT/OT DVT prophylaxis-mechanical due to history of bleeding even with prophylactic anticoagulation Full code reason for continued hospitalization: awaiting pt/ot Quality Stroke Does the patient have a stroke diagnosis?: No VTE Prior VTE?: No VTE Risk Level:: Medical - moderate - high VTE Device Contraindication: Treatment Not Indicated VTE Drug Contraindication: N/A - Med Ordered
[2024-03-19] MEDS: levoFLOXacin/D5W 750 MG/150 ML PIGGYBACK 100 MG IV (10:11)
[2024-03-19 11:11] LABS: Glucose, Whole Blood 147 mg/dL (60-115)
--- NOTE | 2024-03-19 15:21 | P.CDIM_ITS ---
PROVIDER RESPONSE TEXT: To clarify, the appropriate diagnosis supported by the clinical indicators: Sepsis has been ruled out QUERY TEXT: PHYSICIAN'S DOCUMENTATION REQUEST Date of Query: 03/19/2024 10:54 AM EST Patient Name: Joyce Waddell I Admit Date: 03/17/2024 Dear Armand Ascencio MD, A review of the medical record indicates additional documentation may be needed. Please review below and update the documentation accordingly. The purpose of this query is not to question medical judgment, but to ensure the accuracy of the cond itions reported for your patient. The diagnosis of Sepsis is documented in the record on 03/17/24 in the ER Note. The diagnosis of SIRS is documented in the H&P on 03/17/24 Clinical Indicators: WBC 12.4 pulse 116 On IV Flagyl and IV Levaquin for treatment of Acute Diverticulitis Please clarify the documentation of Sepsis or SIRS: Sepsis remains a known or suspected condition Sepsis has been ruled out SIRS remains a known or suspected condition SIRS has been ruled out Patient has neither Sepsis nor SIRS Other (explain) Clinically unable to determine (explain) Thank you, Denia Schwartz RN Use of terms such as suspected, likely, concern for, or probable (associated with a specific diagnosi s that is being evaluated, monitored, or treated as if it exists) are acceptable and can be coded in the inpatient se tting, when documented at the time of discharge. Please use your independent medical judgment in providing your response. THIS QUERY IS PART OF THE PERMANENT MEDICAL RECORD
[2024-03-19] MEDS: Albuterol/Iprat 2.5/0.5MG 3 ML AMPUL.NEB INHALE (15:45)
--- NOTE | 2024-03-19 16:25 | MHC.CM.PN ---
PT NOT YET MEDICALLY CLEARED TO DC DCP REMAINS HOME WITH [facility] TO TRANSPORT
[2024-03-19 16:36] LABS: Glucose, Whole Blood 133 mg/dL (60-115)
[2024-03-19 20:16] LABS: Glucose, Whole Blood 127 mg/dL (60-115)
[2024-03-19] MEDS: diphenhydrAMINE HCL 25 MG CAPSULE PO (20:57)
[2024-03-19] MEDS: ALPRAZolam 0.25 MG TABLET PO (20:57)
[2024-03-19] MEDS: Montelukast Sodium 10 MG TABLET PO (20:57)
[2024-03-20] VITALS (8 sets, daily range): BP systolic 99–155; BP diastolic 60–72; PULSE 88–108; RESP 18–20; TEMP 36.3–37.7; O2SAT 90–95
[2024-03-20] MEDS: Morphine Sulfate 2 MG/ML CARTRIDGE IVPUSH ×5 (01:40→18:24)
[2024-03-20] MEDS: metroNIDAZOLE/NS 500 MG/100 ML PIGGYBACK 100 MG IV ×3 (01:44→17:05)
[2024-03-20 05:48] LABS: Hematocrit 27.3 % (37.0-47.0); Hemoglobin 9.1 g/dl (12.0-16.0); Mean Corpuscular HGB Conc 33.3 g/dl (31.0-35.0); Mean Corpuscular Hemoglobin 29.3 pg (27.0-33.0); Mean Corpuscular Volume 87.8 fL (80.0-98.0); Mean Platelet Volume 8.8 fL (9.4-12.3); Platelet Count 380 X10*3/uL (160-400); Red Blood Count 3.11 X10*6/uL (4.20-5.50); Red Cell Distribution Width 16.8 % (11.0-16.0); White Blood Count 15.9 X10*3/uL (4.8-10.8)
[2024-03-20] MEDS: Omeprazole 20 MG CAPSULE.DR PO (06:01)
[2024-03-20 06:05] LABS: Anion Gap 15 (12-20); Blood Urea Nitrogen 12 mg/dL (9-16); Calcium 9.1 mg/dL (8.4-10.2); Carbon Dioxide 22 mmol/L (22-29); Chloride 100 mmol/L (96-108); Creatinine Clr Calc Pharmacy 51.6; Estimated Glomerular Filt Rate > 60; Glucose Fasting 149 mg/dL (60-99); Potassium 3.5 mmol/L (3.3-5.1); Sodium 133 mmol/L (135-145)
[2024-03-20 07:27] LABS: Glucose, Whole Blood 156 mg/dL (60-115)
[2024-03-20] MEDS: Fluticasone Propionate 100 MCG BLST.W.DEV 1 PUFF INHALE (07:32)
[2024-03-20] MEDS: Salmeterol Xinafoate 50 MCG BLST.W.DEV 1 PUFF INHALE ×2 (07:32→20:01)
[2024-03-20] MEDS: Metoprolol Succinate ER 25 MG TAB.ER.24H 75 MG PO (07:55)
[2024-03-20] MEDS: Atorvastatin Calcium 80 MG TABLET PO (07:56)
[2024-03-20] MEDS: DULoxetine HCl 30 MG CAPSULE.DR PO ×2 (07:56→20:39)
[2024-03-20] MEDS: Losartan Potassium 50 MG TABLET PO (07:56)
[2024-03-20] MEDS: Acetaminophen 325 MG TABLET 975 MG PO (07:56)
[2024-03-20] MEDS: Gabapentin 100 MG CAPSULE PO ×2 (07:56→20:39)
[2024-03-20] MEDS: allopurinoL 100 MG TABLET PO (07:56)
[2024-03-20] MEDS: 0.9 % Sodium Chloride Flush 3 ML SYRINGE IVFLUSH ×3 (07:57→20:46)
[2024-03-20] MEDS: Loratadine 10 MG TABLET PO (07:57)
[2024-03-20] MEDS: Fluticasone Propionate Nasal 16 GM SPRAY 2 SPRAY NOSTRIL-B (08:00)
--- NOTE | 2024-03-20 09:19 | HO.PM.IMPN ---
Subjective Subjective Date of Service: 03/20/24 Interval History: improved Physical Exam Vital Signs: Vital Signs: Last Vital Signs Temp 99.9 F 03/20/24 07:55 Pulse 102 H 03/20/24 07:55 Resp 18 03/20/24 07:55 BP 155/72 H 03/20/24 07:55 Pulse Ox 91 L 03/20/24 07:55 O2 Del Method Room Air 03/20/24 07:55 O2 Flow Rate 92 03/20/24 03:25 BMI result Body Mass Index 36.2 General: AO X 3, axious, less distress Resp: CTA bilateral, no accessory muscles used CVS: S1,S2,RRR GI: soft, tender, non distended Neuro: motor grossly intact, alert Psych: appropriate affect, appropriate insight Objective Data Active Medications Acetaminophen (Acetaminophen 325 Mg Tablet) 975 mg PO Q6H PRN PRN Reason: Pain, Mild (Pain Scale 1-3), fever or headache Last Admin: 03/20/24 07:56 Dose: 975 mg Documented By: LUCI Albuterol/Ipratropium (Albuterol/Iprat 2.5/0.5mg 3 Ml Ampul.Neb) 3 ml INHALE Q4H PRN PRN Reason: wheezing Last Admin: 03/19/24 15:45 Dose: 3 ml Documented By: ARMINDA Allopurinol (Allopurinol 100 Mg Tablet) 100 mg PO DAILY [facility] Last Admin: 03/20/24 07:56 Dose: 100 mg Documented By: LUCI Alprazolam (Alprazolam 0.25 Mg Tablet) 0.25 mg PO BEDTIME [facility] Last Admin: 03/19/24 20:57 Dose: 0.25 mg Documented By: VINNIE Alprazolam (Alprazolam 0.25 Mg Tablet) 0.125 mg PO TID PRN PRN Reason: Anxiety Atorvastatin Calcium (Atorvastatin Calcium 80 Mg Tablet) 80 mg PO DAILY [facility] Last Admin: 03/20/24 07:56 Dose: 80 mg Documented By: LUCI Calcium Carbonate (Calcium Carbonate 750 Mg Tab.Chew) 750 mg PO Q4H PRN PRN Reason: Heartburn Diphenhydramine HCl (Diphenhydramine Hcl 25 Mg Capsule) 25 mg PO BEDTIME [facility] Last Admin: 03/19/24 20:57 Dose: 25 mg Documented By: VINNIE Duloxetine HCl (Duloxetine Hcl 30 Mg Capsule.Dr) 30 mg PO BID [facility] Last Admin: 03/20/24 07:56 Dose: 30 mg Documented By: LUCI Fluticasone Propionate (Fluticasone Propionate 100 Mcg Blst.W.Dev) 1 puff INHALE RBID [facility] Last Admin: 03/20/24 07:32 Dose: 1 puff Documented By: PURVI Fluticasone Propionate (Fluticasone Propionate Nasal 16 Gm Rachel) 2 spray NOSTRIL-B DAILY [facility] Last Admin: 03/20/24 08:00 Dose: 2 spray Documented By: LUCI Gabapentin (Gabapentin 100 Mg Capsule) 100 mg PO BID [facility] Last Admin: 03/20/24 07:56 Dose: 100 mg Documented By: LUCI Glucose (Glucose Gel 15 Gm Gel..Gram.) 15 gm PO Q15M PRN; Protocol PRN Reason: per Hypoglycemia Standing Ord. Dextrose (D10) 250 mls @ 750 mls/hr IV Q15M PRN; Protocol PRN Reason: per Hypoglycemia Standing Ord. Metronidazole (Flagyl) 500 mg in 100 mls @ 100 mls/hr IV Q8H [facility] Last Infusion: 03/20/24 09:01 Dose: Infused Documented By: LUCI Levofloxacin (Levaquin) 750 mg in 150 mls @ 100 mls/hr IV Q48H [facility] Last Infusion: 03/19/24 12:17 Dose: Infused Documented By: LUCI Insulin Human Lispro (Insulin Lispro 100 Unit/Ml 3 Ml Vial) 0 unit SUBCUT QIDACHS [facility]; Protocol Last Admin: 03/20/24 07:37 Dose: Not Given Documented By: LUCI Non-Admin Reason: fasting 149 Loperamide HCl (Loperamide Hcl 2 Mg Capsule) 2 mg PO Q6H PRN PRN Reason: Diarrhea Loratadine (Loratadine 10 Mg Tablet) 10 mg PO DAILY [facility] Last Admin: 03/20/24 07:57 Dose: 10 mg Documented By: LUCI Losartan Potassium (Losartan Potassium 50 Mg Tablet) 50 mg PO DAILY [facility]; Protocol Last Admin: 03/20/24 07:56 Dose: 50 mg Documented By: LUCI Metoprolol Succinate (Metoprolol Succinate Er 25 Mg Tab.Er.24h) 75 mg PO DAILY [facility]; Protocol Last Admin: 03/20/24 07:55 Dose: 75 mg Documented By: LUCI Montelukast Sodium (Montelukast Sodium 10 Mg Tablet) 10 mg PO BEDTIME [facility] Last Admin: 03/19/24 20:57 Dose: 10 mg Documented By: VINNIE Morphine Sulfate (Morphine Sulfate 2 Mg/Ml Cartridge) 2 mg IVPUSH Q3H PRN; Protocol PRN Reason: Pain, Severe (Pain Scale 7-10) Last Admin: 03/20/24 09:05 Dose: 2 mg Documented By: LUCI Omeprazole (Omeprazole 20 Mg Capsule.Dr) 20 mg PO DAILY@0630 [facility] Last Admin: 03/20/24 06:01 Dose: 20 mg Documented By: GAGAN Ondansetron HCl (Ondansetron Hcl 4 Mg/2 Ml Vial) 4 mg IVPUSH Q8H PRN PRN Reason: Nausea and Vomiting Salmeterol Xinafoate (Salmeterol Xinafoate 50 Mcg Blst.W.Dev) 1 puff INHALE RBID [facility] Last Admin: 03/20/24 07:32 Dose: 1 puff Documented By: PURVI Sodium Chloride (0.9 % Sodium Chloride Flush 3 Ml Syringe) 3 ml IVFLUSH QSHIFT [facility] Last Admin: 03/20/24 07:57 Dose: 3 ml Documented By: LUCI Labs 03/20/24 05:39 03/20/24 05:39 Labs: Laboratory Results - last 24 hr 03/19/24 03/19/24 03/19/24 11:07 16:27 19:54 MCV MCH MCHC RDW Plt Count MPV Absolute Nucleated RBC Nucleated RBC % (auto) Anion Gap Estim Creat Clear Calc Estimated GFR POC Glucose 147 H 133 H 127 H Fasting Glucose Calcium 03/20/24 03/20/24 05:39 07:23 MCV 87.8 MCH 29.3 MCHC 33.3 RDW 16.8 H Plt Count 380 MPV 8.8 L Absolute Nucleated RBC 0.000 Nucleated RBC % (auto) 0.0 Anion Gap 15 Estim Creat Clear Calc 51.6 Estimated GFR > 60 POC Glucose 156 H Fasting Glucose 149 H Calcium 9.1 Microbiology Microbiology Results: Microbiology 03/17/24 09:05 Blood Culture - Preliminary Blood - Venous No growth after 48 hours. 03/17/24 08:54 Blood Culture - Preliminary Blood - Venous No growth after 48 hours. Assessment and Plan (1) Anxiety disorder: Status: Acute Plan 84F PMH VD, diabetes, paroxysmal atrial fibrillation, hypertension, gout, GERD, anxiety, hyperlipidemia presented with abdominal pain diarrhea Acute diverticulitis Continue levofloxacin and Flagyl On solid diet Pain control Paroxysmal atrial fibrillation Continue Toprol, not on anticoagulation due to history of major bleeding Diabetes Insulin sliding scale COPD Stable Hypertension Metoprolol, losartan Anxiety Xanax, Cymbalta Gout Continue allopurinol Recent right humerus and left 5th metatarsal fracture Pain control PT/OT appreciated - plan for acute rehab DVT prophylaxis-mechanical due to history of bleeding even with prophylactic anticoagulation Full code reason for continued hospitalization: safe dispo Quality Stroke Does the patient have a stroke diagnosis?: No VTE Prior VTE?: No VTE Risk Level:: Medical - moderate - high VTE Device Contraindication: Treatment Not Indicated VTE Drug Contraindication: N/A - Med Ordered
[2024-03-20 11:16] LABS: Glucose, Whole Blood 145 mg/dL (60-115)
[2024-03-20] MEDS: Albuterol/Iprat 2.5/0.5MG 3 ML AMPUL.NEB INHALE (14:20)
--- NOTE | 2024-03-20 14:53 | MHC.CM.PN ---
PT is recommending STR, this CM met with pt and her son present at bedside to discuss discharge plan. Pt does feel she needs STR although a bit hesitant, she was agreeable to a referral being placed in the [facility] area. [facility] has offered pt a bed, this CM met with pt to discuss this option. Pt accepts bed offer at [facility], plan will be for her to discharge there tomorrow 03/21.
[2024-03-20 16:15] LABS: Glucose, Whole Blood 126 mg/dL (60-115)
[2024-03-20] MEDS: diphenhydrAMINE HCL 25 MG CAPSULE PO (20:39)
[2024-03-20] MEDS: ALPRAZolam 0.25 MG TABLET PO (20:40)
[2024-03-20] MEDS: Montelukast Sodium 10 MG TABLET PO (20:40)
[2024-03-20 20:44] LABS: Glucose, Whole Blood 137 mg/dL (60-115)
[2024-03-21] VITALS (18 sets, daily range): BP systolic 112–169; BP diastolic 58–88; PULSE 91–184; RESP 16–20; TEMP 36.2–37.3; O2SAT 93–99
[2024-03-21] MEDS: metroNIDAZOLE/NS 500 MG/100 ML PIGGYBACK 100 MG IV ×3 (00:07→17:48)
[2024-03-21] MEDS: Morphine Sulfate 2 MG/ML CARTRIDGE IVPUSH ×4 (00:15→14:51)
[2024-03-21] MEDS: Omeprazole 20 MG CAPSULE.DR PO (05:05)
[2024-03-21] MEDS: 0.9 % Sodium Chloride Flush 3 ML SYRINGE IVFLUSH ×2 (07:16→21:51)
[2024-03-21 07:19] LABS: Glucose, Whole Blood 139 mg/dL (60-115)
[2024-03-21] MEDS: Salmeterol Xinafoate 50 MCG BLST.W.DEV 1 PUFF INHALE ×2 (07:47→20:22)
[2024-03-21] MEDS: Fluticasone Propionate 100 MCG BLST.W.DEV 1 PUFF INHALE (07:47)
[2024-03-21 08:04] LABS: Hematocrit 28.7 % (37.0-47.0); Hemoglobin 9.4 g/dl (12.0-16.0); Mean Corpuscular HGB Conc 32.8 g/dl (31.0-35.0); Mean Corpuscular Volume 88.6 fL (80.0-98.0); Mean Platelet Volume 9.5 fL (9.4-12.3); Platelet Count 405 X10*3/uL (160-400); Red Blood Count 3.24 X10*6/uL (4.20-5.50); Red Cell Distribution Width 16.8 % (11.0-16.0); White Blood Count 15.8 X10*3/uL (4.8-10.8)
[2024-03-21] MEDS: Gabapentin 100 MG CAPSULE PO ×2 (08:10→21:54)
[2024-03-21] MEDS: allopurinoL 100 MG TABLET PO (08:10)
[2024-03-21] MEDS: Fluticasone Propionate Nasal 16 GM SPRAY 2 SPRAY NOSTRIL-B (08:10)
[2024-03-21] MEDS: DULoxetine HCl 30 MG CAPSULE.DR PO ×2 (08:10→21:54)
[2024-03-21] MEDS: Losartan Potassium 50 MG TABLET PO (08:10)
[2024-03-21] MEDS: Metoprolol Succinate ER 25 MG TAB.ER.24H 75 MG PO (08:11)
[2024-03-21] MEDS: Atorvastatin Calcium 80 MG TABLET PO (08:11)
[2024-03-21] MEDS: Loratadine 10 MG TABLET PO (08:11)
[2024-03-21 08:15] LABS: Anion Gap 18 (12-20); Blood Urea Nitrogen 15 mg/dL (9-16); Carbon Dioxide 22 mmol/L (22-29); Chloride 101 mmol/L (96-108); Creatinine Clr Calc Pharmacy 52.3; Estimated Glomerular Filt Rate > 60; Glucose Fasting 135 mg/dL (60-99); Potassium 3.5 mmol/L (3.3-5.1); Sodium 137 mmol/L (135-145)
[2024-03-21] MEDS: levoFLOXacin/D5W 750 MG/150 ML PIGGYBACK 100 MG IV (09:31)
[2024-03-21] MEDS: Albuterol/Iprat 2.5/0.5MG 3 ML AMPUL.NEB INHALE (09:48)
--- NOTE | 2024-03-21 10:26 | ECG_ITS ---
Test Reason : TACHYCARDIA Blood Pressure : / mmHG Vent. Rate : 176 BPM Atrial Rate : 057 BPM P-R Int : 132 ms QRS Dur : 108 ms QT Int : 284 ms P-R-T Axes : -10 -01 -29 degrees QTc Int : 486 ms Atrial fibrillation with rapid ventricular response Incomplete right bundle branch block Abnormal ECG When compared with ECG of 17-MAR-2024 08:15, Rhythm change Referred By: Martha Triana Electronically Signed By:LIZZ LESLIE
[2024-03-21] MEDS: Metoprolol Tartrate 5 MG/5 ML VIAL IVPUSH ×2 (10:30→11:03)
--- NOTE | 2024-03-21 10:43 | MHC.CM.PN ---
Addendum entered by Juani Pierce 03/21/24 11:48: [place] [facility] [place] Note: Patient was planned for discharge today per MD rounds. A rapid response has been called to the patients room. Per MD discharge is on hold today. [facility] has been notified of the cancelled discharge today. DP [facility] via BLS once patient is discharged.
--- NOTE | 2024-03-21 10:43 | PC.NURSE ---
1030 pt oob to commode pt 2 asisst with this RN and Aide , notification of pt heart rate 200, rapid response called
[2024-03-21] MEDS: Metoprolol Tartrate 25 MG TABLET PO ×4 (11:01→21:55)
[2024-03-21] MEDS: Docusate Sodium 100 MG CAPSULE 200 MG PO (11:01)
--- NOTE | 2024-03-21 11:04 | HO.PM.IMPN ---
Subjective Subjective Date of Service: 03/21/24 Interval History: Seen and evaluated this morning Feels better overall Rapid response called around 1030 for sinus tachycardia of 180-200. asymptomtic. EKG showed sinus tachy with PAF no other events Review of Systems Review of Systems: Yes all other systems are reviewed and are negative Physical Exam Vital Signs: Vital Signs: Last Vital Signs Temp 99.2 F 03/21/24 07:58 Pulse 179 H 03/21/24 10:56 Resp 16 03/21/24 09:50 BP 126/88 03/21/24 10:56 Pulse Ox 93 03/21/24 07:58 O2 Del Method Room Air 03/21/24 07:58 O2 Flow Rate 92 03/20/24 03:25 BMI result Body Mass Index 36.2 Const: Other: Constitutional : Awake, interactive, not in distress Neck : Normal inspection, Supple Cardiovascular : RRR, tachycardia, no JVP, no lower extremity edema Respiratory : good bilateral air entry, no crackles, wheezes or rhonchi Gastrointestinal: soft, lax, Normal bowel sounds, Non tender Skin : Warm, Dry Neurological : Alert & oriented x3, No focal deficit Objective Data Active Medications Acetaminophen (Acetaminophen 325 Mg Tablet) 975 mg PO Q6H PRN PRN Reason: Pain, Mild (Pain Scale 1-3), fever or headache Last Admin: 03/20/24 07:56 Dose: 975 mg Documented By: LUCI Albuterol/Ipratropium (Albuterol/Iprat 2.5/0.5mg 3 Ml Ampul.Neb) 3 ml INHALE Q4H PRN PRN Reason: wheezing Last Admin: 03/21/24 09:48 Dose: 3 ml Documented By: HARMEET Allopurinol (Allopurinol 100 Mg Tablet) 100 mg PO DAILY [facility] Last Admin: 03/21/24 08:10 Dose: 100 mg Documented By: ASHLEY Alprazolam (Alprazolam 0.25 Mg Tablet) 0.25 mg PO BEDTIME [facility] Last Admin: 03/20/24 20:40 Dose: 0.25 mg Documented By: ELIZABETH Alprazolam (Alprazolam 0.25 Mg Tablet) 0.125 mg PO TID PRN PRN Reason: Anxiety Atorvastatin Calcium (Atorvastatin Calcium 80 Mg Tablet) 80 mg PO DAILY [facility] Last Admin: 03/21/24 08:11 Dose: 80 mg Documented By: ASHLEY Calcium Carbonate (Calcium Carbonate 750 Mg Tab.Chew) 750 mg PO Q4H PRN PRN Reason: Heartburn Diphenhydramine HCl (Diphenhydramine Hcl 25 Mg Capsule) 25 mg PO BEDTIME [facility] Last Admin: 03/20/24 20:39 Dose: 25 mg Documented By: ELIZABETH Docusate Sodium (Docusate Sodium 100 Mg Capsule) 200 mg PO DAILY [facility] Last Admin: 03/21/24 11:01 Dose: 200 mg Documented By: ABDOULAYE Duloxetine HCl (Duloxetine Hcl 30 Mg Capsule.Dr) 30 mg PO BID [facility] Last Admin: 03/21/24 08:10 Dose: 30 mg Documented By: ASHLEY Fluticasone Propionate (Fluticasone Propionate 100 Mcg Blst.W.Dev) 1 puff INHALE RBID [facility] Last Admin: 03/21/24 07:47 Dose: 1 puff Documented By: HARMEET Fluticasone Propionate (Fluticasone Propionate Nasal 16 Gm [place]) 2 spray NOSTRIL-B DAILY [facility] Last Admin: 03/21/24 08:10 Dose: 2 spray Documented By: ASHLEY Gabapentin (Gabapentin 100 Mg Capsule) 100 mg PO BID [facility] Last Admin: 03/21/24 08:10 Dose: 100 mg Documented By: ASHLEY Glucose (Glucose Gel 15 Gm Gel..Gram.) 15 gm PO Q15M PRN; Protocol PRN Reason: per Hypoglycemia Standing Ord. Dextrose (D10) 250 mls @ 750 mls/hr IV Q15M PRN; Protocol PRN Reason: per Hypoglycemia Standing Ord. Metronidazole (Flagyl) 500 mg in 100 mls @ 100 mls/hr IV Q8H [facility] Last Infusion: 03/21/24 09:26 Dose: Infused Documented By: ASHLEY Levofloxacin (Levaquin) 750 mg in 150 mls @ 100 mls/hr IV Q48H [facility] Last Admin: 03/21/24 09:31 Dose: 100 mls/hr Documented By: ASHLEY Insulin Human Lispro (Insulin Lispro 100 Unit/Ml 3 Ml Vial) 0 unit SUBCUT QIDACHS [facility]; Protocol Last Admin: 03/21/24 07:18 Dose: Not Given Documented By: ASHLEY Non-Admin Reason: No Insulin Coverage Loperamide HCl (Loperamide Hcl 2 Mg Capsule) 2 mg PO Q6H PRN PRN Reason: Diarrhea Loratadine (Loratadine 10 Mg Tablet) 10 mg PO DAILY [facility] Last Admin: 03/21/24 08:11 Dose: 10 mg Documented By: ASHLEY Losartan Potassium (Losartan Potassium 50 Mg Tablet) 50 mg PO DAILY [facility]; Protocol Last Admin: 03/21/24 08:10 Dose: 50 mg Documented By: ASHLEY Metoprolol Succinate (Metoprolol Succinate Er 25 Mg Tab.Er.24h) 75 mg PO DAILY [facility]; Protocol Last Admin: 03/21/24 08:11 Dose: 75 mg Documented By: ASHLEY Metoprolol Tartrate (Metoprolol Tartrate 25 Mg Tablet) 25 mg PO QID [facility]; Protocol Last Admin: 03/21/24 11:01 Dose: 25 mg Documented By: ABDOULAYE Montelukast Sodium (Montelukast Sodium 10 Mg Tablet) 10 mg PO BEDTIME [facility] Last Admin: 03/20/24 20:40 Dose: 10 mg Documented By: ELIZABETH Morphine Sulfate (Morphine Sulfate 2 Mg/Ml Cartridge) 2 mg IVPUSH Q3H PRN; Protocol PRN Reason: Pain, Severe (Pain Scale 7-10) Last Admin: 03/21/24 08:31 Dose: 2 mg Documented By: ASHLEY Omeprazole (Omeprazole 20 Mg Capsule.Dr) 20 mg PO DAILY@0630 [facility] Last Admin: 03/21/24 05:05 Dose: 20 mg Documented By: SABINA Ondansetron HCl (Ondansetron Hcl 4 Mg/2 Ml Vial) 4 mg IVPUSH Q8H PRN PRN Reason: Nausea and Vomiting Polyethylene Glycol (Polyethylene Glycol 3350 17 Gm Powd.Pack) 17 gm PO DAILY [facility] Salmeterol Xinafoate (Salmeterol Xinafoate 50 Mcg Blst.W.Dev) 1 puff INHALE RBID [facility] Last Admin: 03/21/24 07:47 Dose: 1 puff Documented By: HARMEET Senna (Sennosides 8.6 Mg Tablet) 17.2 mg PO BEDTIME [facility] Sodium Chloride (0.9 % Sodium Chloride Flush 3 Ml Syringe) 3 ml IVFLUSH QSHIFT [facility] Last Admin: 03/21/24 07:16 Dose: 3 ml Documented By: ASHLEY Labs 03/21/24 05:40 03/21/24 05:40 Labs: Laboratory Results - last 24 hr 03/20/24 03/20/24 03/20/24 11:11 16:08 20:40 MCV MCH MCHC RDW Plt Count MPV Absolute Nucleated RBC Nucleated RBC % (auto) Anion Gap Estim Creat Clear Calc Estimated GFR POC Glucose 145 H 126 H 137 H Fasting Glucose Calcium 03/21/24 03/21/24 05:40 07:14 MCV 88.6 MCH 29.0 MCHC 32.8 RDW 16.8 H Plt Count 405 H MPV 9.5 Absolute Nucleated RBC 0.000 Nucleated RBC % (auto) 0.0 Anion Gap 18 Estim Creat Clear Calc 52.3 Estimated GFR > 60 POC Glucose 139 H Fasting Glucose 135 H Calcium 9.0 Assessment and Plan (1) Sepsis: Status: Acute (2) Diverticulitis: Status: Acute (3) Narrow complex tachycardia: Status: Acute Plan 84F PMH VD, diabetes, paroxysmal atrial fibrillation, hypertension, gout, GERD, anxiety, hyperlipidemia presented with abdominal pain diarrhea Acute narrow complex tachycardia seems sinus tachy with PACs, Improved with IV and PO Metoprolol Mg of 1.8, give IV to keep it above 2 Keep on Tele Acute diverticulitis Continue levofloxacin and Flagyl On solid diet Pain control Paroxysmal atrial fibrillation Continue Toprol, increast to 100 not on anticoagulation due to history of major bleeding Diabetes Insulin sliding scale COPD Stable Hypertension Metoprolol, losartan Anxiety Xanax, Cymbalta Gout Continue allopurinol Recent right humerus and left 5th metatarsal fracture Pain control PT/OT appreciated - plan for acute rehab DVT prophylaxis-mechanical due to history of bleeding even with prophylactic anticoagulation Full code reason for continued hospitalization: Narrow complex Tachycardia on Telementry and needs IV Medications and close monitoring Quality Stroke Does the patient have a stroke diagnosis?: No VTE Prior VTE?: No VTE Risk Level:: Medical - moderate - high VTE Device Contraindication: Treatment Not Indicated VTE Drug Contraindication: N/A - Med Ordered
[2024-03-21 11:38] LABS: Magnesium 1.8 mg/dL (1.6-2.6)
[2024-03-21 11:46] LABS: Glucose, Whole Blood 168 mg/dL (60-115)
--- NOTE | 2024-03-21 11:48 | ECG_ITS ---
Test Reason : tachycardia Blood Pressure : / mmHG Vent. Rate : 112 BPM Atrial Rate : 112 BPM P-R Int : 136 ms QRS Dur : 112 ms QT Int : 358 ms P-R-T Axes : 035 -14 -08 degrees QTc Int : 488 ms Sinus tachycardia with Premature supraventricular complexes Incomplete right bundle branch block Borderline ECG When compared with ECG of 21-MAR-2024 10:26, Rhythm change Referred By: Martha Triana Electronically Signed By:LIZZ LESLIE
[2024-03-21] MEDS: Insulin Lispro 100 UNIT/ML 3 ML VIAL SUBCUT (12:19)
[2024-03-21] MEDS: polyethylene glycoL 3350 17 GM POWD.PACK PO (13:21)
[2024-03-21] MEDS: Magnesium Sulfate/H2O 2 GM/50 ML PIGGYBACK IV (14:51)
[2024-03-21 16:25] LABS: Glucose, Whole Blood 124 mg/dL (60-115)
[2024-03-21] MEDS: methocarbamoL 500 MG TABLET PO ×2 (16:32→21:54)
[2024-03-21] MEDS: Montelukast Sodium 10 MG TABLET PO (21:54)
[2024-03-21] MEDS: diphenhydrAMINE HCL 25 MG CAPSULE PO (21:54)
[2024-03-21] MEDS: ALPRAZolam 0.25 MG TABLET PO (21:54)
[2024-03-21] MEDS: Sennosides 8.6 MG TABLET 17.2 MG PO (21:54)
[2024-03-21 22:14] LABS: Glucose, Whole Blood 141 mg/dL (60-115)
[2024-03-21] MEDS: Morphine Sulfate Immed Release 15 MG TABLET PO (23:42)
[2024-03-22] VITALS (12 sets, daily range): BP systolic 95–139; BP diastolic 55–84; PULSE 95–150; RESP 18–22; TEMP 36.4–38.1; O2SAT 92–97
--- NOTE | 2024-03-22 | ECG_ITS ---
Test Reason : Tachcardia Blood Pressure : / mmHG Vent. Rate : 146 BPM Atrial Rate : 000 BPM P-R Int : 000 ms QRS Dur : 118 ms QT Int : 254 ms P-R-T Axes : 000 -04 -34 degrees QTc Int : 395 ms Atrial fibrillation with rapid ventricular response with premature ventricular or aberrantly conducted complexes Low voltage QRS Incomplete right bundle branch block Nonspecific ST and T wave abnormality Abnormal ECG When compared with ECG of 21-MAR-2024 11:48, Atrial fibrillation has replaced Sinus rhythm Referred By: Jared Ward Electronically Signed By:LIZZ LESLIE
[2024-03-22] MEDS: metroNIDAZOLE/NS 500 MG/100 ML PIGGYBACK 100 MG IV ×3 (00:58→16:47)
[2024-03-22] MEDS: Morphine Sulfate Immed Release 15 MG TABLET PO ×2 (06:08→12:11)
[2024-03-22] MEDS: Omeprazole 20 MG CAPSULE.DR PO (06:08)
[2024-03-22 06:38] LABS: Hemoglobin 8.8 g/dl (12.0-16.0); Mean Corpuscular HGB Conc 33.8 g/dl (31.0-35.0); Mean Corpuscular Hemoglobin 29.6 pg (27.0-33.0); Mean Corpuscular Volume 87.5 fL (80.0-98.0); Mean Platelet Volume 9.1 fL (9.4-12.3); Platelet Count 381 X10*3/uL (160-400); Red Blood Count 2.97 X10*6/uL (4.20-5.50); Red Cell Distribution Width 16.7 % (11.0-16.0); White Blood Count 16.1 X10*3/uL (4.8-10.8)
[2024-03-22 06:53] LABS: Anion Gap 15 (12-20); Blood Urea Nitrogen 16 mg/dL (9-16); Calcium 8.8 mg/dL (8.4-10.2); Carbon Dioxide 24 mmol/L (22-29); Chloride 99 mmol/L (96-108); Creatinine Clr Calc Pharmacy 48.3; Estimated Glomerular Filt Rate > 60; Glucose Random 129 mg/dL (60-115); Potassium 3.5 mmol/L (3.3-5.1); Sodium 134 mmol/L (135-145)
[2024-03-22 07:34] LABS: Glucose, Whole Blood 135 mg/dL (60-115)
[2024-03-22] MEDS: Fluticasone Propionate 100 MCG BLST.W.DEV 1 PUFF INHALE ×2 (08:04→18:56)
[2024-03-22] MEDS: Salmeterol Xinafoate 50 MCG BLST.W.DEV 1 PUFF INHALE ×2 (08:04→18:53)
[2024-03-22] MEDS: polyethylene glycoL 3350 17 GM POWD.PACK PO (08:20)
[2024-03-22] MEDS: Metoprolol Tartrate 25 MG TABLET PO ×4 (08:20→21:05)
[2024-03-22] MEDS: Gabapentin 100 MG CAPSULE PO ×2 (08:20→21:12)
[2024-03-22] MEDS: DULoxetine HCl 30 MG CAPSULE.DR PO ×2 (08:20→21:05)
[2024-03-22] MEDS: allopurinoL 100 MG TABLET PO (08:20)
[2024-03-22] MEDS: methocarbamoL 500 MG TABLET PO ×3 (08:20→21:05)
[2024-03-22] MEDS: Loratadine 10 MG TABLET PO (08:20)
[2024-03-22] MEDS: Metoprolol Succinate ER 100 MG TAB.ER.24H PO (08:20)
[2024-03-22] MEDS: Docusate Sodium 100 MG CAPSULE 200 MG PO (08:20)
[2024-03-22] MEDS: Atorvastatin Calcium 80 MG TABLET PO (08:20)
[2024-03-22] MEDS: Fluticasone Propionate Nasal 16 GM SPRAY 2 SPRAY NOSTRIL-B (08:25)
[2024-03-22] MEDS: 0.9 % Sodium Chloride Flush 3 ML SYRINGE IVFLUSH ×3 (08:25→20:54)
[2024-03-22 11:44] LABS: Glucose, Whole Blood 113 mg/dL (60-115)
[2024-03-22] MEDS: Lactulose 20 GM/30 ML SOLUTION PO ×2 (12:11→21:12)
--- NOTE | 2024-03-22 15:04 | P.PNIM_ITS ---
Subjective Subjective Date of Service: 03/22/24 Interval History: Seen and evaluated this morning complaining of all over pain heart rate better controlled sinus tachy with PAF no other events Review of Systems Review of Systems: Yes all other systems are reviewed and are negative Physical Exam 2 Vital Signs: Vital Signs: Last Vital Signs Temp 97.9 F 03/22/24 11:59 Pulse 98 03/22/24 11:59 Resp 22 H 03/22/24 11:59 BP 128/62 03/22/24 11:59 Pulse Ox 94 03/22/24 11:59 O2 Del Method Room Air 03/22/24 11:59 O2 Flow Rate 2 03/21/24 20:00 BMI result Body Mass Index 36.2 Const: Other: Constitutional : Awake, interactive, not in distress Neck : Normal inspection, Supple Cardiovascular : RRR, tachycardia, no JVP, no lower extremity edema Respiratory : good bilateral air entry, no crackles, wheezes or rhonchi Gastrointestinal: soft, lax, Normal bowel sounds, Non tender Skin : Warm, Dry Neurological : Alert & oriented x3, No focal deficit Objective Data Active Medications Acetaminophen (Acetaminophen 325 Mg Tablet) 975 mg PO Q6H PRN PRN Reason: Pain, Mild (Pain Scale 1-3), fever or headache Last Admin: 03/20/24 07:56 Dose: 975 mg Documented By: LUCI Allopurinol (Allopurinol 100 Mg Tablet) 100 mg PO DAILY [facility] Last Admin: 03/22/24 08:20 Dose: 100 mg Documented By: BLANCA Alprazolam (Alprazolam 0.25 Mg Tablet) 0.25 mg PO BEDTIME [facility] Last Admin: 03/21/24 21:54 Dose: 0.25 mg Documented By: ALLAN Alprazolam (Alprazolam 0.25 Mg Tablet) 0.125 mg PO TID PRN PRN Reason: Anxiety Atorvastatin Calcium (Atorvastatin Calcium 80 Mg Tablet) 80 mg PO DAILY [facility] Last Admin: 03/22/24 08:20 Dose: 80 mg Documented By: BLANCA Calcium Carbonate (Calcium Carbonate 750 Mg Tab.Chew) 750 mg PO Q4H PRN PRN Reason: Heartburn Diphenhydramine HCl (Diphenhydramine Hcl 25 Mg Capsule) 25 mg PO BEDTIME [facility] Last Admin: 03/21/24 21:54 Dose: 25 mg Documented By: ALLAN Docusate Sodium (Docusate Sodium 100 Mg Capsule) 200 mg PO DAILY [facility] Last Admin: 03/22/24 08:20 Dose: 200 mg Documented By: BLANCA Duloxetine HCl (Duloxetine Hcl 30 Mg Capsule.) 30 mg PO BID [facility] Last Admin: 03/22/24 08:20 Dose: 30 mg Documented By: BLANCA Fluticasone Propionate (Fluticasone Propionate 100 Mcg Blst.W.Dev) 1 puff INHALE RBID [facility] Last Admin: 03/22/24 08:04 Dose: 1 puff Documented By: MERLE Fluticasone Propionate (Fluticasone Propionate Nasal 16 Gm [place]) 2 spray NOSTRIL-B DAILY [facility] Last Admin: 03/22/24 08:25 Dose: 2 spray Documented By: BLANCA Gabapentin (Gabapentin 100 Mg Capsule) 100 mg PO BID [facility] Last Admin: 03/22/24 08:20 Dose: 100 mg Documented By: BLANCA Glucose (Glucose Gel 15 Gm Gel..Gram.) 15 gm PO Q15M PRN; Protocol PRN Reason: per Hypoglycemia Standing Ord. Dextrose (D10) 250 mls @ 750 mls/hr IV Q15M PRN; Protocol PRN Reason: per Hypoglycemia Standing Ord. Metronidazole (Flagyl) 500 mg in 100 mls @ 100 mls/hr IV Q8H [facility] Last Infusion: 03/22/24 11:31 Dose: Infused Documented By: MAYLIN Levofloxacin (Levaquin) 750 mg in 150 mls @ 100 mls/hr IV Q48H [facility] Last Infusion: 03/21/24 13:23 Dose: Infused Documented By: GABO Insulin Human Lispro (Insulin Lispro 100 Unit/Ml 3 Ml Vial) 0 unit SUBCUT QIDACHS [facility]; Protocol Last Admin: 03/22/24 12:11 Dose: Not Given Documented By: MAYLIN Non-Admin Reason: No Insulin Coverage Lactulose (Lactulose 20 Gm/30 Ml Solution) 20 gm PO BID [facility] Last Admin: 03/22/24 12:11 Dose: 20 gm Documented By: MAYLIN Loperamide HCl (Loperamide Hcl 2 Mg Capsule) 2 mg PO Q6H PRN PRN Reason: Diarrhea Loratadine (Loratadine 10 Mg Tablet) 10 mg PO DAILY [facility] Last Admin: 03/22/24 08:20 Dose: 10 mg Documented By: BLANCA Losartan Potassium (Losartan Potassium 50 Mg Tablet) 50 mg PO DAILY [facility]; Protocol Last Admin: 03/21/24 08:10 Dose: 50 mg Documented By: ASHLEY Methocarbamol (Methocarbamol 500 Mg Tablet) 500 mg PO TID [facility] Last Admin: 03/22/24 08:20 Dose: 500 mg Documented By: BLANCA Metoprolol Succinate (Metoprolol Succinate Er 100 Mg Tab.Er.24h) 100 mg PO DAILY [facility]; Protocol Last Admin: 03/22/24 08:20 Dose: 100 mg Documented By: BLANCA Metoprolol Tartrate (Metoprolol Tartrate 25 Mg Tablet) 25 mg PO QID [facility]; Protocol Last Admin: 03/22/24 12:11 Dose: 25 mg Documented By: MAYLIN Montelukast Sodium (Montelukast Sodium 10 Mg Tablet) 10 mg PO BEDTIME [facility] Last Admin: 03/21/24 21:54 Dose: 10 mg Documented By: ALLAN Morphine Sulfate (Morphine Sulfate Immed Release 15 Mg Tablet) 15 mg PO Q4H PRN PRN Reason: Pain, Severe (Pain Scale 7-10) Last Admin: 03/22/24 12:11 Dose: 15 mg Documented By: MAYLIN Omeprazole (Omeprazole 20 Mg Capsule.Dr) 20 mg PO DAILY@0630 [facility] Last Admin: 03/22/24 06:08 Dose: 20 mg Documented By: ALLAN Ondansetron HCl (Ondansetron Hcl 4 Mg/2 Ml Vial) 4 mg IVPUSH Q8H PRN PRN Reason: Nausea and Vomiting Polyethylene Glycol (Polyethylene Glycol 3350 17 Gm Powd.Pack) 17 gm PO DAILY [facility] Last Admin: 03/22/24 08:20 Dose: 17 gm Documented By: BLANCA Salmeterol Xinafoate (Salmeterol Xinafoate 50 Mcg Blst.W.Dev) 1 puff INHALE RBID [facility] Last Admin: 03/22/24 08:04 Dose: 1 puff Documented By: HO.GOLAR Senna (Sennosides 8.6 Mg Tablet) 17.2 mg PO BEDTIME [facility] Last Admin: 03/21/24 21:54 Dose: 17.2 mg Documented By: ALLAN Sodium Chloride (0.9 % Sodium Chloride Flush 3 Ml Syringe) 3 ml IVFLUSH QSHIFT [facility] Last Admin: 03/22/24 08:25 Dose: 3 ml Documented By: BLANCA Labs 03/22/24 06:11 03/22/24 06:11 Labs: Laboratory Results - last 24 hr 03/21/24 03/21/24 03/22/24 16:22 22:08 06:11 MCV 87.5 MCH 29.6 MCHC 33.8 RDW 16.7 H Plt Count 381 MPV 9.1 L Absolute Nucleated RBC 0.000 Nucleated RBC % (auto) 0.0 Anion Gap 15 Estim Creat Clear Calc 48.3 Estimated GFR > 60 POC Glucose 124 H 141 H Random Glucose 129 H Calcium 8.8 03/22/24 03/22/24 07:23 11:39 MCV MCH MCHC RDW Plt Count MPV Absolute Nucleated RBC Nucleated RBC % (auto) Anion Gap Estim Creat Clear Calc Estimated GFR POC Glucose 135 H 113 Random Glucose Calcium Microbiology Microbiology Results: Microbiology 03/17/24 09:05 Blood Culture - Final Blood - Venous No growth after 5 days. 03/17/24 08:54 Blood Culture - Final Blood - Venous No growth after 5 days. Assessment and Plan (1) Narrow complex tachycardia: Status: Acute (2) Sepsis: Status: Acute (3) Diverticulitis: Status: Acute Plan 84F PMH VD, diabetes, paroxysmal atrial fibrillation, hypertension, gout, GERD, anxiety, hyperlipidemia presented with abdominal pain diarrhea Acute narrow complex tachycardia sinus tachy with PACs, better controlled with PO Metoprolol Mg improved Increase Metoprolol succinate to 100 Keep on Tele Leukocytosis stable around 15-16k monitor as patient on antibiotics Acute diverticulitis Continue levofloxacin and Flagyl On solid diet Pain control Paroxysmal atrial fibrillation Continue Toprol, increast to 100 not on anticoagulation due to history of major bleeding Diabetes Insulin sliding scale COPD Stable Hypertension Metoprolol, losartan Anxiety Xanax, Cymbalta Gout Continue allopurinol Recent right humerus and left 5th metatarsal fracture Pain control PT/OT appreciated - plan for rehab DVT prophylaxis-mechanical due to history of bleeding even with prophylactic anticoagulation Full code reason for continued hospitalization: Tachycardia on Telementry and needs IV and PO Medications and close monitoring Quality Stroke Does the patient have a stroke diagnosis?: No VTE Prior VTE?: No VTE Risk Level:: Medical - moderate - high VTE Device Contraindication: Treatment Not Indicated VTE Drug Contraindication: N/A - Med Ordered
[2024-03-22] MEDS: Acetaminophen 325 MG TABLET 975 MG PO (15:44)
[2024-03-22 16:16] LABS: Glucose, Whole Blood 152 mg/dL (60-115)
[2024-03-22] MEDS: Lidocaine 4 % Patch ADH..PATCH 1 PATCH TRANSDERMA (16:44)
[2024-03-22] MEDS: Insulin Lispro 100 UNIT/ML 3 ML VIAL SUBCUT (16:47)
[2024-03-22 17:58] LABS: Lactic Acid 1.3 mmol/L (0.5-2.0)
[2024-03-22] MEDS: Metoprolol Tartrate 5 MG/5 ML VIAL IVPUSH (20:53)
[2024-03-22] MEDS: Sennosides 8.6 MG TABLET 17.2 MG PO (21:05)
[2024-03-22] MEDS: Montelukast Sodium 10 MG TABLET PO (21:06)
[2024-03-22] MEDS: diphenhydrAMINE HCL 25 MG CAPSULE PO (21:12)
[2024-03-22] MEDS: Digoxin 0.5 MG/2 ML AMPUL 0.125 MG IVPUSH (21:19)
[2024-03-22 21:51] LABS: Glucose, Whole Blood 141 mg/dL (60-115)
--- NOTE | 2024-03-22 22:31 | PM.EVENT ---
Event Note Date of Service: 03/23/24 Event Note: The patient has a history of paroxysmal atrial fibrillation (PAF) and is not on anticoagulation due to a history of major gastrointestinal bleeding. She has been experiencing intermittent episodes of tachycardia and is now in atrial fibrillation with rapid ventricular response (AFib with RVR). She reports no symptoms such as shortness of breath, chest pain, or dizziness. ECG confirmed AFib with a heart rate reaching 150 bpm. Initially, she received IV metoprolol 5 mg without significant effect, followed by digoxin 0.125 mg, also without improvement. Her systolic blood pressure dropped into the 90s, though she remained mentating. Intravenous fluids were started, and an additional 0.25 mg of digoxin (total 0.375 mg) was administered following cardiology consultation. Midodrine was given to improve her blood pressure. Subsequently, she was started on a Cardizem (diltiazem) drip, achieving heart rate control after prolonged AFib with RVR. She should be transitioned to oral medications as the Cardizem drip is weaned. The risks and benefits of anticoagulation therapy should be reassessed, and further management should involve cardiology consultation. Time Spent With Patient Time: Total time managing care of this patient today ____ minutes.
[2024-03-22] MEDS: Digoxin 0.5 MG/2 ML AMPUL 0.25 MG IVPUSH (22:39)
[2024-03-22] MEDS: Midodrine HCl 10 MG TABLET PO (23:30)
[2024-03-22] MEDS: 0.9 % Sodium Chloride 250 ML 999 ML IV (23:30)
[2024-03-23] VITALS (10 sets, daily range): BP systolic 100–149; BP diastolic 57–75; PULSE 87–136; RESP 18–22; TEMP 36.2–36.8; O2SAT 89–98
[2024-03-23] MEDS: dilTIAZem HCL 125 MG in 0.9 % Sodium Chloride 100 ML 10 MG IVCONT (00:14)
[2024-03-23] MEDS: Digoxin 0.5 MG/2 ML AMPUL 0.125 MG IVPUSH (02:46)
--- NOTE | 2024-03-23 03:03 | PC.NURSE ---
At approximately 20:34 patient's HR sustaining at 150s. MD notified and came to bedside. Patient reported feeling asymptomatic. Vitals taken, 118/55 HR 145, 97.9 and 92% on room air. EKG ordered and obtained, metoprolol 5mg IVpush, metoprolol 25mg PO and digoxin 0.125mg IVpush q6 with total of 2 dose ordered and given. At 22:39 MD notifed of HR still sustaining in the 130-150s and ordered digoxin 0.25mg IV push once and given. BP taken 127/84. At 00:00 HR still sustaining in the 130s-150s, BP taken 124/59. MD notified and ordered to start Cardizem drip at 10mg/hr, Cardizem drip started. At 03:00 HR sustaining at 100s.
[2024-03-23] MEDS: Omeprazole 20 MG CAPSULE.DR PO (05:44)
[2024-03-23 07:21] LABS: Glucose, Whole Blood 128 mg/dL (60-115)
[2024-03-23 07:37] LABS: Hematocrit 27.9 % (37.0-47.0); Hemoglobin 9.4 g/dl (12.0-16.0); Mean Corpuscular HGB Conc 33.7 g/dl (31.0-35.0); Mean Corpuscular Hemoglobin 29.7 pg (27.0-33.0); Mean Corpuscular Volume 88.3 fL (80.0-98.0); Mean Platelet Volume 9.4 fL (9.4-12.3); Platelet Count 355 X10*3/uL (160-400); Red Blood Count 3.16 X10*6/uL (4.20-5.50); Red Cell Distribution Width 16.9 % (11.0-16.0)
[2024-03-23] MEDS: Salmeterol Xinafoate 50 MCG BLST.W.DEV 1 PUFF INHALE ×2 (07:39→19:34)
[2024-03-23] MEDS: Fluticasone Propionate 100 MCG BLST.W.DEV 1 PUFF INHALE ×2 (07:39→19:34)
[2024-03-23 08:34] LABS: Anion Gap 17 (12-20); Blood Urea Nitrogen 27 mg/dL (9-16); Calcium 8.2 mg/dL (8.4-10.2); Carbon Dioxide 19 mmol/L (22-29); Chloride 104 mmol/L (96-108); Creatinine Clr Calc Pharmacy 33.3; Estimated Glomerular Filt Rate 46; Glucose Random 145 mg/dL (60-115); Potassium 3.6 mmol/L (3.3-5.1); Sodium 136 mmol/L (135-145)
[2024-03-23] MEDS: 0.9 % Sodium Chloride 1,000 ML 100 ML IVCONT ×2 (09:02)
[2024-03-23] MEDS: allopurinoL 100 MG TABLET PO (09:03)
[2024-03-23] MEDS: Atorvastatin Calcium 80 MG TABLET PO (09:04)
[2024-03-23] MEDS: cefuroxime axetiL 500 MG TABLET PO ×2 (09:04→20:19)
[2024-03-23] MEDS: methocarbamoL 500 MG TABLET PO ×3 (09:05→20:19)
[2024-03-23] MEDS: DULoxetine HCl 30 MG CAPSULE.DR PO ×2 (09:05→20:19)
[2024-03-23] MEDS: Docusate Sodium 100 MG CAPSULE 200 MG PO (09:06)
[2024-03-23] MEDS: Metoprolol Succinate ER 100 MG TAB.ER.24H PO (09:06)
[2024-03-23] MEDS: Loratadine 10 MG TABLET PO (09:06)
[2024-03-23] MEDS: Lidocaine 4 % Patch ADH..PATCH 1 PATCH TRANSDERMA (09:07)
[2024-03-23] MEDS: Gabapentin 100 MG CAPSULE PO ×2 (09:07→20:19)
[2024-03-23] MEDS: Lactulose 20 GM/30 ML SOLUTION PO (09:07)
[2024-03-23] MEDS: 0.9 % Sodium Chloride Flush 3 ML SYRINGE IVFLUSH ×2 (09:10→23:11)
[2024-03-23] MEDS: polyethylene glycoL 3350 17 GM POWD.PACK PO (09:34)
[2024-03-23] MEDS: metroNIDAZOLE/NS 500 MG/100 ML PIGGYBACK 100 MG IV ×3 (09:34→18:52)
--- NOTE | 2024-03-23 09:57 | ECG_ITS ---
Test Reason : afib Blood Pressure : / mmHG Vent. Rate : 090 BPM Atrial Rate : 090 BPM P-R Int : 150 ms QRS Dur : 116 ms QT Int : 380 ms P-R-T Axes : 032 -18 -18 degrees QTc Int : 464 ms Normal sinus rhythm with sinus arrhythmia Incomplete right bundle branch block Abnormal ECG When compared with ECG of 22-MAR-2024 20:41, Sinus rhythm has replaced Atrial fibrillation Vent. rate has decreased BY 56 BPM Referred By: Lizz Leslie Electronically Signed By:LIZZ LESLIE
--- NOTE | 2024-03-23 10:05 | CA_ITS ---
Transthoracic Echocardiogram Patient (Last, First, Middle): Joyce Waddell I Gender: Female Date of : 1940 Age: 84 Procedure Date: 03/23/2024 Procedure Type: Transthoracic E[place] [facility] [place]: 147.32 cm Weight: 78.47 kg BSA: 1.71 m2 Heart Rate: bpm BP: 118 / 65 mmHg Survey Technician: VERO Referring MD: Ben Borden MD Symptoms: AFib Study Quality: Technically Difficult, contrast ECG Rhythm: Sinus Conclusions: - The left ventricular systolic function is normal. The calculated ejection fraction is 59% by biplane method. - No obvious valvular pathology seen on this study. Findings Procedure Information Contrast agent, definity, is being given per protocol without apparent complications. The study quality is limited by limitations of a portable exam. Left Ventricle Normal left ventricular cavity size. There is mildly increased left ventricular wall thickness. The left ventricular systolic function is normal. The calculated ejection fraction is 59% by biplane method. There is no evidence of regional wall motion abnormalities. Evidence suggests grade I (mild) diastolic dysfunction. Right Ventricle Normal right ventricular cavity size. There is mildly decreased right ventricular systolic function. Atria The left atrium is mildly dilated. The right atrium is normal in size. Aortic Valve There is mild calcification of the aortic valve. There is no aortic valve regurgitation. No significant aortic stenosis. Mitral Valve There is mild mitral annular calcification. There is trace mitral valve regurgitation. There is no mitral valve stenosis. Pulmonic Valve The pulmonic valve is likely normal. Tricuspid Valve There is trace tricuspid valve regurgitation. Mild pulmonary hypertension is present. Great Vessels The asc aorta is normal in size. Venous The inferior vena cava is normal in size. Pericardium/Pleural There is no evidence of pericardial effusion. Prior Study Comparison No prior study available for comparison. Recommendations, Care & Conclusions No obvious valvular pathology seen on this study. Measurements 2D Linear Measurements IVSd: 1.22 0.6-0.9/0.6-1.0 cm LVIDd: 4.19 3.9-5.3/4.2-5.9 cm LVIDd Index: 2.45 2.4-3.2/2.2-3.1 cm/m2 LVIDs: 2.89 2.0-3.6 cm LVPWd: 1.07 0.7-1.1 cm Ao Root: 3.70 2.1-3.5 cm LV Mass: 206.48 67-162/88-224 g LV Mass Index: 120.75 43-95/49-115 g/m2 LVOT Diam: 2.10 3.0+(-)1.3 cm 2D Systolic Function EF 4C: 61.60 >55% EF 2C: 53.70 >55% EF BiP: 58.90 >55% Mitral Valve MV Pk E: 0.85 MV PK A: 1.00 MV Decel Time: 223.00 E/A: 0.80 E'Lateral: 6.09 E'Medial: 5.00 E/E' Med: 17.00 E/E' Lat: 13.90 PHT: 65.00 MVA PHT: 3.38 Decel [place]: 3.81 Aortic Valve AoV Pk Ifeanyi: 2.25 AoV Mn Ifeanyi: 1.43 AoV VTI: 0.35 AoV Pk Grad: 20.00 Aov Mn Grad: 10.00 LUIS Cont.VTI: 1.96 LVOT LVOT Pk Ifeanyi: 1.03 LVOT Mn Ifeanyi: 0.76 LVOT VTI: 0.20 LVOT Pk Grad: 4.00 LVOT Mn Grad: 2.00 LVOT Diam: 2.10 LVOT Area: 3.46 Diastolic Function MV Pk E: 0.85 MV Pk A: 1.00 E/A: 0.80 E'Medial: 5.00 E/E' Med: 17.00 E' Laterial: 6.09 E/E' Lat: 13.90 Right Ventricle TAPSE (mm): 16.90 TVS' Ifeanyi: 10.10 Tricuspid Valve TR Pk Ifeanyi: 2.73 TR Pk Grad: 30.00 RA Press: 8.00 RVSP: 38.00 Great Vessels Aorta Ao Root-2D: 3.70 2.0-3.7 cm Ao Asc: 3.30 2.1-3.4 cm Updated in Other Vendor System with Status of Final Ben Borden MD electronically signed on 03/23/2024 1:33:04 PM with status of Final
[2024-03-23 10:14] LABS: Magnesium 2.1 mg/dL (1.6-2.6)
--- NOTE | 2024-03-23 10:43 | P.CONCA_ITS ---
History of Present Illness History of Present Illness Date of Service: 03/23/24 Chief complaint: acute diverticulitis Narrative: This is a cardiology consultation regarding atrial fibrillation rapid ventricular response. Per admission documentation, many comorbidities including COPD, diabetes, paroxysmal atrial fibrillation but not on anticoagulation, hypertension among others. She has been admitted with a diagnosis of diverticulitis/SIRS/diarrhea. In this context, she has been having episodes of sinus tachycardia as well as atrial fibrillation with rapid ventricular response and hence we are consulted. Overnight, she had several episodes of atrial fibrillation with rapid ventricular response but currently she is in normal sinus rhythm. Patient states she feels well and she does not really feel any of these symptoms. It seems she does have a history of atrial fibrillation in the past and apparently there was a GI bleeding issue several decades ago and hence she does not want to be on anticoagulation. She used to see someone in [facility] and awaiting a follow-up appointment. Currently, she states she feels okay. No acute complaints. Review of Systems 2 Review of Systems: Yes all other systems are reviewed and are negative Constitutional: Constitutional: Reports as per HPI and Reports no additional constitutional complaints Eyes: Eyes: Reports as per HPI and Denies no additional eye complaints ENT: Denies system reviewed and no additional complaints, except as documented and Reports as per HPI Cardiovascular: Cardiovascular: Reports as per HPI, Reports no additional cardiovascular complaints, Denies acrocyanosis, Denies cool extremities, Denies chest pain, Denies leg edema, Denies lightheadedness, Denies palpitations and Denies dyspnea Respiratory: Respiratory: Reports as per HPI, Denies no additional respiratory complaints and Denies dyspnea Gastrointestinal: Gastrointestinal: Reports as per HPI and Denies no additional gastrointestinal complaints Genitourinary: Genitourinary: Reports as per HPI Musculoskeletal: Musculoskeletal: Reports no additional musculoskeletal complaints and Reports as per HPI Integumentary/Breasts: Skin/Breast: Reports system reviewed and no additional complaints, except as docu Neurologic: Reports system reviewed and no additional complaints, except as documented and Reports as per HPI Psychiatric: Psychiatric: Reports no additional psychiatric complaints and Reports as per HPI Endocrine: Endocrine: Reports no additional endocrine complaints, Reports as per HPI and Denies palpitations Hematologic/Lymphatic: Hematologic/Lymphatic: Reports no additional hematologic/lymphatic complaints and Reports as per HPI Allergic/Immunologic: Allergic/Immunologic: Reports no additional allergic/immunologic complaints and Reports as per HPI [facility] Past Medical History Medical History (Updated 03/23/24 @ 10:47 by Ben Borden MD) Lumbar back pain with radiculopathy affecting left lower extremity Mixed stress and urge urinary incontinence Osteoporosis History of compression fracture of spine Compression fracture of body of thoracic vertebra Paroxysmal atrial fibrillation Anemia COVID-19 Diverticulitis COPD (chronic obstructive pulmonary disease) Allergic rhinitis Multiple lipomas Nodular lesion on surface of skin 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) GERD (gastroesophageal reflux disease) Deep vein thrombosis (DVT) of left lower extremity Gout Anxiety disorder Type 2 diabetes mellitus without complication, without long-term current use of insulin Hyperlipidemia Hypertension Family History Family History Mother Mental health disorder Sister CVA (cerebral vascular accident) Daughter Brain tumor Diabetes Bipolar 1 disorder Heart abnormality Mental illness in member of household Mental health disorder Father Substance use disorder Son Mental health disorder Surgical History Surgical History H/O: hysterectomy History of gastric surgery Hx of hand surgery H/O local excision of skin lesion Social History Social History Household Members: Family Housing: House Do you presently have visiting nurse or other home services: No Alcohol intake: former Patient Tobacco Use Status: Former Tobacco user Years Smoked: 10 yrs e-Cigarette/Vaping Use: Never Used Second Hand Smoke Exposure: No Advance Directives Date on File: 07/27/21 service: No Current occupational status: retired Cognitive needs: No Hearing needs: No Vision needs: Yes Meds Allergies Allergy/AdvReac Type Severity Reaction Status Date / Time Penicillins [PENICILLINS] Allergy Intermediate rash Verified 03/17/24 08:11 meperidine [Demerol] Allergy Unknown Nausea and Verified 03/17/24 08:11 Vomiting oxycodone Allergy Unknown Nausea and Verified 03/17/24 08:11 Vomiting Sulfa (Sulfonamide Allergy Unknown NAUSEA & Verified 03/17/24 08:11 Antibiotics) VOMITING, [SULFA (SULFONAMIDE GI upset ANTIBIOTICS)] warfarin [WARFARIN] AdvReac Severe UNKNOWN Verified 03/17/24 08:11 aspirin [ASPIRIN] AdvReac Mild gi bleed Verified 03/17/24 08:11 enoxaparin [From LOVENOX] AdvReac Unknown INTERNAL Verified 03/17/24 08:11 BLEEDING heparin [HEPARIN] AdvReac Unknown INTERNAL Verified 03/17/24 08:11 BLEEDING ibuprofen AdvReac Unknown GI bleed Verified 03/17/24 08:11 Chocolate AdvReac Diarrhea Verified 03/17/24 08:11 Active Medications: Current Medications Acetaminophen (Acetaminophen 325 Mg Tablet) 975 mg PO Q6H PRN PRN Reason: Pain, Mild (Pain Scale 1-3), fever or headache Last Admin: 03/22/24 15:44 Dose: 975 mg Allopurinol (Allopurinol 100 Mg Tablet) 100 mg PO DAILY [facility] Last Admin: 03/23/24 09:03 Dose: 100 mg Alprazolam (Alprazolam 0.25 Mg Tablet) 0.125 mg PO TID PRN PRN Reason: Anxiety Amiodarone HCl (Amiodarone Hcl 200 Mg Tablet) 400 mg PO BID [facility] Atorvastatin Calcium (Atorvastatin Calcium 80 Mg Tablet) 80 mg PO DAILY [facility] Last Admin: 03/23/24 09:04 Dose: 80 mg Calcium Carbonate (Calcium Carbonate 750 Mg Tab.Chew) 750 mg PO Q4H PRN PRN Reason: Heartburn Cefuroxime Axetil (Cefuroxime Axetil 500 Mg Tablet) 500 mg PO BID [facility] Last Admin: 03/23/24 09:04 Dose: 500 mg Diphenhydramine HCl (Diphenhydramine Hcl 25 Mg Capsule) 25 mg PO BEDTIME [facility] Last Admin: 03/22/24 21:12 Dose: 25 mg Docusate Sodium (Docusate Sodium 100 Mg Capsule) 200 mg PO DAILY [facility] Last Admin: 03/23/24 09:06 Dose: 200 mg Duloxetine HCl (Duloxetine Hcl 30 Mg Capsule.Dr) 30 mg PO BID [facility] Last Admin: 03/23/24 09:05 Dose: 30 mg Fluticasone Propionate (Fluticasone Propionate 100 Mcg Blst.W.Dev) 1 puff INHALE RBID [facility] Last Admin: 03/23/24 07:39 Dose: 1 puff Fluticasone Propionate (Fluticasone Propionate Nasal 16 Gm [place]) 2 spray NOSTRIL-B DAILY [facility] Last Admin: 03/22/24 08:25 Dose: 2 spray Gabapentin (Gabapentin 100 Mg Capsule) 100 mg PO BID [facility] Last Admin: 03/23/24 09:07 Dose: 100 mg Glucose (Glucose Gel 15 Gm Gel..Gram.) 15 gm PO Q15M PRN; Protocol PRN Reason: per Hypoglycemia Standing Ord. Dextrose (D10) 250 mls @ 750 mls/hr IV Q15M PRN; Protocol PRN Reason: per Hypoglycemia Standing Ord. Metronidazole (Flagyl) 500 mg in 100 mls @ 100 mls/hr IV Q8H [place] Last Admin: 03/23/24 09:34 Dose: 100 mls/hr Sodium Chloride (Ns) 1,000 mls @ 100 mls/hr IVCONT .Q10H [place] Last Admin: 03/23/24 09:02 Dose: 100 mls/hr Insulin Human Lispro (Insulin Lispro 100 Unit/Ml 3 Ml Vial) 0 unit SUBCUT QIDACHS [facility]; Protocol Last Admin: 03/23/24 08:21 Dose: Not Given Lactulose (Lactulose 20 Gm/30 Ml Solution) 20 gm PO BID [facility] Last Admin: 03/23/24 09:07 Dose: 20 gm Lidocaine (Lidocaine 4 % Patch Adh..Patch) 1 patch TRANSDERMA DAILY [facility]; Protocol Last Admin: 03/23/24 09:07 Dose: 1 patch Loperamide HCl (Loperamide Hcl 2 Mg Capsule) 2 mg PO Q6H PRN PRN Reason: Diarrhea Loratadine (Loratadine 10 Mg Tablet) 10 mg PO DAILY [facility] Last Admin: 03/23/24 09:06 Dose: 10 mg Losartan Potassium (Losartan Potassium 50 Mg Tablet) 50 mg PO DAILY [facility]; Protocol Last Admin: 03/21/24 08:10 Dose: 50 mg Methocarbamol (Methocarbamol 500 Mg Tablet) 500 mg PO TID [facility] Last Admin: 03/23/24 09:05 Dose: 500 mg Metoprolol Succinate (Metoprolol Succinate Er 100 Mg Tab.Er.24h) 100 mg PO DAILY [facility]; Protocol Last Admin: 03/23/24 09:06 Dose: 100 mg Montelukast Sodium (Montelukast Sodium 10 Mg Tablet) 10 mg PO BEDTIME [facility] Last Admin: 03/22/24 21:06 Dose: 10 mg Morphine Sulfate (Morphine Sulfate Immed Release 15 Mg Tablet) 15 mg PO Q4H PRN PRN Reason: Pain, Severe (Pain Scale 7-10) Last Admin: 03/22/24 12:11 Dose: 15 mg Omeprazole (Omeprazole 20 Mg Capsule.Dr) 20 mg PO DAILY@0630 [facility] Last Admin: 03/23/24 05:44 Dose: 20 mg Ondansetron HCl (Ondansetron Hcl 4 Mg/2 Ml Vial) 4 mg IVPUSH Q8H PRN PRN Reason: Nausea and Vomiting Polyethylene Glycol (Polyethylene Glycol 3350 17 Gm Powd.Pack) 17 gm PO DAILY [facility] Last Admin: 03/23/24 09:34 Dose: 17 gm Salmeterol Xinafoate (Salmeterol Xinafoate 50 Mcg Blst.W.Dev) 1 puff INHALE RBID [facility] Last Admin: 03/23/24 07:39 Dose: 1 puff Senna (Sennosides 8.6 Mg Tablet) 17.2 mg PO BEDTIME [facility] Last Admin: 03/22/24 21:05 Dose: 17.2 mg Sodium Chloride (0.9 % Sodium Chloride Flush 3 Ml Syringe) 3 ml IVFLUSH QSHIFT [facility] Last Admin: 03/23/24 09:10 Dose: 3 ml Home Medications ?Medication ?Instructions ?Recorded ?Confirmed ?Last Taken ?Type metoprolol succinate 50 mg 75 mg PO DAILY 04/09/22 03/17/24 03/07/24 History tablet,extended release 24 hr duloxetine 30 mg capsule,delayed 30 mg PO BID 12/27/23 03/17/24 Unknown History release acetaminophen 500 mg tablet 1,000 mg PO Q6H PRN Pain 03/17/24 03/17/24 Unknown History diphenhydramine HCl 25 mg tablet 25 mg PO BEDTIME 03/17/24 03/17/24 Unknown History docusate sodium 100 mg capsule 200 mg PO DAILY PRN Constipation 03/17/24 03/17/24 Unknown History (Stool Softener) fluticasone propionate 50 2 spray intranasal DAILY 03/17/24 03/17/24 Unknown History mcg/actuation nasal spray,suspension furosemide 20 mg tablet 20 mg PO DAILY 03/17/24 03/17/24 Unknown History gabapentin 100 mg capsule 100 mg PO BID 03/17/24 03/17/24 Unknown History (Neurontin) loratadine 10 mg tablet 10 mg PO DAILY 03/17/24 03/17/24 Unknown History pantoprazole 40 mg tablet,delayed 40 mg PO DAILY@0630 03/17/24 03/17/24 Unknown History release Physical Exam 2 Vital Signs: Vital Signs: Last Vital Signs Temp 98.0 F 03/23/24 08:00 Pulse 122 H 03/23/24 08:00 Resp 22 H 03/23/24 08:00 BP 120/57 L 03/23/24 08:00 Pulse Ox 95 03/23/24 08:00 O2 Del Method Nasal Cannula 03/23/24 08:00 O2 Flow Rate 1 03/23/24 08:00 BMI result Body Mass Index 36.2 Const: General: comfortable and no acute distress O rientation/consciousness: patient oriented x3 HEENT: Other: Unremarkable Head: Yes normal to inspection Neck: Neck: Yes normal visual inspection Chest: Chest palpation & inspection: normal inspection of the chest Resp: Auscultation: clear to auscultation bilaterally Cardio: Palpation: normal PMI Heart sounds: S1 normal heart sound present, S2 normal heart sound present, no gallops, no murmurs and no rubs GI: Palpation (GI): Soft to palpation Back/Spine/Pelvis: Other: unremarkable Skin: General skin exam: no rashes or lesions noted Neuro: General: patient oriented x3 Extrem: General: Yes normal to inspection Psych: Mental Status: mental status grossly normal Objective Labs and Meds 03/23/24 07:01 03/23/24 07:01 Lab results: Laboratory Results - last 24 hr 03/22/24 03/22/24 03/22/24 11:39 16:13 17:33 WBC RBC Hgb Hct MCV MCH MCHC RDW Plt Count MPV Absolute Nucleated RBC Nucleated RBC % (auto) Sodium Potassium Chloride Carbon Dioxide Anion Gap BUN Creatinine Estim Creat Clear Calc Estimated GFR POC Glucose 113 152 H Random Glucose Lactic Acid 1.3 Calcium Magnesium 03/22/24 03/23/24 03/23/24 20:54 07:01 07:17 WBC 13.0 H RBC 3.16 L Hgb 9.4 L Hct 27.9 L MCV 88.3 MCH 29.7 MCHC 33.7 RDW 16.9 H Plt Count 355 MPV 9.4 Absolute Nucleated RBC 0.000 Nucleated RBC % (auto) 0.0 Sodium 136 Potassium 3.6 Chloride 104 Carbon Dioxide 19 L Anion Gap 17 BUN 27 H Creatinine 1.13 Estim Creat Clear Calc 33.3 Estimated GFR 46 POC Glucose 141 H 128 H Random Glucose 145 H Lactic Acid Calcium 8.2 L D Magnesium 2.1 ECG Interpretation: In the EKG from last night, atrial fibrillation with a rate of 146/Min with right bundle-branch block pattern. In the EKG prior to that, there is sinus tachycardia at 112/Min with supraventricular ectopy. Currently, she is in sinus rhythm in the 70s on telemetry. Imaging Radiologist's impression: Impressions Chest X-Ray 03/22/24 17:20 IMPRESSION: Streaky opacities in the lung bases, likely atelectasis. Electronically signed by: Tylor Frye MD 03/22/2024 05:49 PM [facility] [place] and Plan (1) Atrial fibrillation with RVR: Status: Acute Plan Atrial fibrillation with rapid ventricular response but currently back in normal sinus rhythm. Likely related to underlying medical issues. Clinically, she seems quite well compensated from cardiac. We will plan on getting an echocardiogram for cardiac function. For medications, she seems to be on metoprolol ER 75 mg daily at home. It had been increased to 100 mg daily. We can start her on amiodarone loading which should keep her in sinus rhythm and prevent recurring AF/rapid rates. With regard to anticoagulation again discussed about indications but she is still very reluctant and states that she had bleeding from ulcer many decades ago and hence would rather not go on it. Implications from stroke discussed but she is almost tearful. May have to address that through her own causticiser. Discussed with Dr. Triana. Procedures Date of Service Date of Service: 03/23/24
[2024-03-23 11:55] LABS: Glucose, Whole Blood 183 mg/dL (60-115)
[2024-03-23] MEDS: Insulin Lispro 100 UNIT/ML 3 ML VIAL SUBCUT (12:34)
[2024-03-23] MEDS: Fluticasone Propionate Nasal 16 GM SPRAY 2 SPRAY NOSTRIL-B (12:34)
[2024-03-23] MEDS: Amiodarone HCL 200 MG TABLET 400 MG PO ×2 (12:35→20:20)
[2024-03-23] MEDS: Morphine Sulfate Immed Release 15 MG TABLET PO ×2 (12:37→20:19)
--- NOTE | 2024-03-23 13:17 | HO.PM.IMPN ---
Subjective Subjective Date of Service: 03/23/24 Interval History: Seen and evaluated this morning complaining of all over pain went into Afib w RvR overnight , started on Cardizem drip, converted back to sinus trhis morning no other events Review of Systems Review of Systems: Yes all other systems are reviewed and are negative Physical Exam Vital Signs: Vital Signs: Last Vital Signs Temp 98.2 F 03/23/24 12:00 Pulse 93 03/23/24 12:00 Resp 22 H 03/23/24 12:00 BP 118/65 03/23/24 12:00 Pulse Ox 93 03/23/24 12:00 O2 Del Method Nasal Cannula 03/23/24 12:00 O2 Flow Rate 1 03/23/24 12:00 BMI result Body Mass Index 36.2 Const: Other: Constitutional : Awake, interactive, not in distress Neck : Normal inspection, Supple Cardiovascular : RRR, tachycardia, no JVP, no lower extremity edema Respiratory : good bilateral air entry, no crackles, wheezes or rhonchi Gastrointestinal: soft, lax, Normal bowel sounds, Non tender Skin : Warm, Dry Neurological : Alert & oriented x3, No focal deficit Objective Data Active Medications Acetaminophen (Acetaminophen 325 Mg Tablet) 975 mg PO Q6H PRN PRN Reason: Pain, Mild (Pain Scale 1-3), fever or headache Last Admin: 03/22/24 15:44 Dose: 975 mg Documented By: MAYLIN Allopurinol (Allopurinol 100 Mg Tablet) 100 mg PO DAILY [facility] Last Admin: 03/23/24 09:03 Dose: 100 mg Documented By: KRYSTIN Alprazolam (Alprazolam 0.25 Mg Tablet) 0.125 mg PO TID PRN PRN Reason: Anxiety Amiodarone HCl (Amiodarone Hcl 200 Mg Tablet) 400 mg PO BID [facility] Last Admin: 03/23/24 12:35 Dose: 400 mg Documented By: KRYSTIN Atorvastatin Calcium (Atorvastatin Calcium 80 Mg Tablet) 80 mg PO DAILY [facility] Last Admin: 03/23/24 09:04 Dose: 80 mg Documented By: KRYSTIN Calcium Carbonate (Calcium Carbonate 750 Mg Tab.Chew) 750 mg PO Q4H PRN PRN Reason: Heartburn Cefuroxime Axetil (Cefuroxime Axetil 500 Mg Tablet) 500 mg PO BID [facility] Last Admin: 03/23/24 09:04 Dose: 500 mg Documented By: KRYSTIN Diphenhydramine HCl (Diphenhydramine Hcl 25 Mg Capsule) 25 mg PO BEDTIME [facility] Last Admin: 03/22/24 21:12 Dose: 25 mg Documented By: JEFF Docusate Sodium (Docusate Sodium 100 Mg Capsule) 200 mg PO DAILY [facility] Last Admin: 03/23/24 09:06 Dose: 200 mg Documented By: KRYSTIN Duloxetine HCl (Duloxetine Hcl 30 Mg Capsule.Dr) 30 mg PO BID [facility] Last Admin: 03/23/24 09:05 Dose: 30 mg Documented By: KRYSTIN Fluticasone Propionate (Fluticasone Propionate 100 Mcg Blst.W.Dev) 1 puff INHALE RBID [facility] Last Admin: 03/23/24 07:39 Dose: 1 puff Documented By: MERLE Fluticasone Propionate (Fluticasone Propionate Nasal 16 Gm [place]) 2 spray NOSTRIL-B DAILY [facility] Last Admin: 03/23/24 12:34 Dose: 2 spray Documented By: KRYSTIN Gabapentin (Gabapentin 100 Mg Capsule) 100 mg PO BID [facility] Last Admin: 03/23/24 09:07 Dose: 100 mg Documented By: KRYSTIN Glucose (Glucose Gel 15 Gm Gel..Gram.) 15 gm PO Q15M PRN; Protocol PRN Reason: per Hypoglycemia Standing Ord. Dextrose (D10) 250 mls @ 750 mls/hr IV Q15M PRN; Protocol PRN Reason: per Hypoglycemia Standing Ord. Metronidazole (Flagyl) 500 mg in 100 mls @ 100 mls/hr IV Q8H [facility] Last Admin: 03/23/24 09:34 Dose: 100 mls/hr Documented By: KRYSTIN Sodium Chloride (Ns) 1,000 mls @ 100 mls/hr IVCONT .Q10H [facility] Last Admin: 03/23/24 09:02 Dose: 100 mls/hr Documented By: KRYSTIN Insulin Human Lispro (Insulin Lispro 100 Unit/Ml 3 Ml Vial) 0 unit SUBCUT QIDACHS [facility]; Protocol Last Admin: 03/23/24 12:34 Dose: 2 unit Documented By: KRYSTIN Lactulose (Lactulose 20 Gm/30 Ml Solution) 20 gm PO BID [facility] Last Admin: 03/23/24 09:07 Dose: 20 gm Documented By: KRYSTIN Lidocaine (Lidocaine 4 % Patch Adh..Patch) 1 patch TRANSDERMA DAILY [facility]; Protocol Last Admin: 03/23/24 09:07 Dose: 1 patch Documented By: KRYSTIN Loperamide HCl (Loperamide Hcl 2 Mg Capsule) 2 mg PO Q6H PRN PRN Reason: Diarrhea Loratadine (Loratadine 10 Mg Tablet) 10 mg PO DAILY [facility] Last Admin: 03/23/24 09:06 Dose: 10 mg Documented By: KRYSTIN Losartan Potassium (Losartan Potassium 50 Mg Tablet) 50 mg PO DAILY [facility]; Protocol Last Admin: 03/21/24 08:10 Dose: 50 mg Documented By: ASHLEY Methocarbamol (Methocarbamol 500 Mg Tablet) 500 mg PO TID [facility] Last Admin: 03/23/24 09:05 Dose: 500 mg Documented By: KRYSTIN Metoprolol Succinate (Metoprolol Succinate Er 100 Mg Tab.Er.24h) 100 mg PO DAILY [facility]; Protocol Last Admin: 03/23/24 09:06 Dose: 100 mg Documented By: KRYSTIN Montelukast Sodium (Montelukast Sodium 10 Mg Tablet) 10 mg PO BEDTIME [facility] Last Admin: 03/22/24 21:06 Dose: 10 mg Documented By: JEFF Morphine Sulfate (Morphine Sulfate Immed Release 15 Mg Tablet) 15 mg PO Q4H PRN PRN Reason: Pain, Severe (Pain Scale 7-10) Last Admin: 03/23/24 12:37 Dose: 15 mg Documented By: KRYSTIN Omeprazole (Omeprazole 20 Mg Capsule.) 20 mg PO DAILY@0630 [facility] Last Admin: 03/23/24 05:44 Dose: 20 mg Documented By: JEFF Ondansetron HCl (Ondansetron Hcl 4 Mg/2 Ml Vial) 4 mg IVPUSH Q8H PRN PRN Reason: Nausea and Vomiting Polyethylene Glycol (Polyethylene Glycol 3350 17 Gm Powd.Pack) 17 gm PO DAILY [facility] Last Admin: 03/23/24 09:34 Dose: 17 gm Documented By: KRYSTIN Salmeterol Xinafoate (Salmeterol Xinafoate 50 Mcg Blst.W.Dev) 1 puff INHALE RBID [facility] Last Admin: 03/23/24 07:39 Dose: 1 puff Documented By: MERLE Echeverriana (Sennosides 8.6 Mg Tablet) 17.2 mg PO BEDTIME [facility] Last Admin: 03/22/24 21:05 Dose: 17.2 mg Documented By: JEFF Sodium Chloride (0.9 % Sodium Chloride Flush 3 Ml Syringe) 3 ml IVFLUSH QSHIFT [facility] Last Admin: 03/23/24 09:10 Dose: 3 ml Documented By: [facility] 03/23/24 07:01 03/23/24 07:01 Labs: Laboratory Results - last 24 hr 03/22/24 03/22/24 03/22/24 16:13 17:33 20:54 MCV MCH MCHC RDW Plt Count MPV Absolute Nucleated RBC Nucleated RBC % (auto) Anion Gap Estim Creat Clear Calc Estimated GFR POC Glucose 152 H 141 H Random Glucose Lactic Acid 1.3 Calcium Magnesium 03/23/24 03/23/24 03/23/24 07:01 07:17 11:46 MCV 88.3 MCH 29.7 MCHC 33.7 RDW 16.9 H Plt Count 355 MPV 9.4 Absolute Nucleated RBC 0.000 Nucleated RBC % (auto) 0.0 Anion Gap 17 Estim Creat Clear Calc 33.3 Estimated GFR 46 POC Glucose 128 H 183 H Random Glucose 145 H Lactic Acid Calcium 8.2 L D Magnesium 2.1 Microbiology Microbiology Results: Microbiology 03/17/24 09:05 Blood Culture - Final Blood - Venous No growth after 5 days. 03/17/24 08:54 Blood Culture - Final Blood - Venous No growth after 5 days. Assessment and Plan (1) Atrial fibrillation with RVR: Status: Acute (2) Sepsis: Status: Acute (3) Diverticulitis: Status: Acute Plan 84F PMH VD, diabetes, paroxysmal atrial fibrillation, hypertension, gout, GERD, anxiety, hyperlipidemia presented with abdominal pain diarrhea PAF w RvR Started on Cardizem drip overnight, converted to sinus DC drip start Amiodarone load Increase Metoprolol succinate to 100 Mg improved Cardiology input appreciated get an Echo Keep on Tele refuses anticoagulation for reported major bleed in past Leukocytosis trending down to 13K monitor as patient on antibiotics Acute diverticulitis Continue levofloxacin and Flagyl On solid diet Pain control Diabetes Insulin sliding scale COPD Stable Hypertension Metoprolol, losartan Anxiety Xanax, Cymbalta Gout Continue allopurinol Recent right humerus and left 5th metatarsal fracture Pain control PT/OT appreciated - plan for rehab DVT prophylaxis-mechanical due to history of bleeding even with prophylactic anticoagulation Full code reason for continued hospitalization: Tachycardia on Telementry and needs Medications and close monitoring Quality Stroke Does the patient have a stroke diagnosis?: No VTE Prior VTE?: No VTE Risk Level:: Medical - moderate - high VTE Device Contraindication: Treatment Not Indicated VTE Drug Contraindication: N/A - Med Ordered
--- NOTE | 2024-03-23 14:13 | MHC.CM.PN ---
EMR REVIEWED, PT CARDIZEM DRIP STOPPED AND STARTED ON ORAL CARDIZEM AND AMIODERONE, PER HOSPITALIST PT WILL BE MONITORED OVERNIGHT AND DC TO STR AT [facility], PT HAS BEEN PREBOOKED FOR 11AM PER LIAISON THEY DON'T HAVE COVERAGE ON W/E, CM CONTACTED PT'S DTR TAMRA EARLIER IN SHIFT AT NUMBER ON FILE, TAMRA AGREEABLE TO PLAN, IMM 03/23/24 DELIVERED TO BEDSIDE.
[2024-03-23 16:53] LABS: Glucose, Whole Blood 148 mg/dL (60-115)
--- NOTE | 2024-03-23 20:11 | PC.NURSE ---
pt's son informed this RN that patient was talking to people that aren't there and is confused. Upon assessment pt noted to be somewhat confused. No hallucinations noted. She was able to state it is february 2024 but was off to location and situation. She was easily reoriented. Son states this has been happening since she came in to the ED but this was a change from previous assessments today. Dr. Amado and oncoming RN aware. Also, per previous discussion with Dr. Triana after failed attempts to get clean catch urine, no need for urine C+S if patient having no symptoms.
[2024-03-23] MEDS: diphenhydrAMINE HCL 25 MG CAPSULE PO (20:19)
[2024-03-23] MEDS: Sennosides 8.6 MG TABLET 17.2 MG PO (20:19)
[2024-03-23] MEDS: Montelukast Sodium 10 MG TABLET PO (20:20)
[2024-03-23 21:42] LABS: Glucose, Whole Blood 151 mg/dL (60-115)
[2024-03-24] VITALS (9 sets, daily range): BP systolic 115–173; BP diastolic 59–85; PULSE 63–155; RESP 15–22; TEMP 35.7–36.9; O2SAT 90–95
[2024-03-24] MEDS: metroNIDAZOLE/NS 500 MG/100 ML PIGGYBACK 100 MG IV ×2 (00:38→07:53)
[2024-03-24] MEDS: dilTIAZem HCL 125 MG in 0.9 % Sodium Chloride 100 ML 10 MG IVCONT ×2 (04:17→12:07)
--- NOTE | 2024-03-24 04:41 | PC.NURSE ---
Patient's HR increased to as high as 170, converted to Afib RVR/asymptomatic. Hospitalist notified and Cardizem drip ordered. VSS , will continue to monitor.
[2024-03-24] MEDS: Morphine Sulfate Immed Release 15 MG TABLET PO ×2 (04:58→12:05)
--- NOTE | 2024-03-24 06:30 | P.EN_ITS ---
Event Note Date of Service: 03/24/24 Event Note: The patient is back in atrial fibrillation with rapid ventricular response (AFIB with RVR), with heart rates peaking at 170 bpm and sustaining in the 150s. She is asymptomatic. * IV Cardizem drip restarted for rate control. * Discuss with cardiology during the day Time Spent With Patient Time: Total time managing care of this patient today ____ minutes.
[2024-03-24 07:02] LABS: Glucose, Whole Blood 173 mg/dL (60-115)
[2024-03-24] MEDS: Gabapentin 100 MG CAPSULE PO ×2 (07:35→20:02)
[2024-03-24] MEDS: Insulin Lispro 100 UNIT/ML 3 ML VIAL SUBCUT ×4 (07:35→21:24)
[2024-03-24] MEDS: DULoxetine HCl 30 MG CAPSULE.DR PO ×2 (07:35→20:02)
[2024-03-24] MEDS: 0.9 % Sodium Chloride Flush 3 ML SYRINGE IVFLUSH ×3 (07:35→23:36)
[2024-03-24] MEDS: ALPRAZolam 0.25 MG TABLET 0.125 MG PO (07:36)
[2024-03-24] MEDS: Atorvastatin Calcium 80 MG TABLET PO (07:37)
[2024-03-24] MEDS: Docusate Sodium 100 MG CAPSULE 200 MG PO (07:37)
[2024-03-24] MEDS: methocarbamoL 500 MG TABLET PO ×3 (07:37→20:02)
[2024-03-24] MEDS: cefuroxime axetiL 500 MG TABLET PO ×2 (07:37→20:02)
[2024-03-24] MEDS: Loratadine 10 MG TABLET PO (07:37)
[2024-03-24] MEDS: Amiodarone HCL 200 MG TABLET 400 MG PO ×3 (07:37→20:02)
[2024-03-24] MEDS: Metoprolol Succinate ER 100 MG TAB.ER.24H PO (07:37)
[2024-03-24] MEDS: polyethylene glycoL 3350 17 GM POWD.PACK PO (07:38)
[2024-03-24] MEDS: Lactulose 20 GM/30 ML SOLUTION PO (07:56)
[2024-03-24 07:57] LABS: Anion Gap 16 (12-20); Blood Urea Nitrogen 31 mg/dL (9-16); Calcium 9.1 mg/dL (8.4-10.2); Carbon Dioxide 19 mmol/L (22-29); Chloride 104 mmol/L (96-108); Creatinine Clr Calc Pharmacy 44.3; Estimated Glomerular Filt Rate > 60; Glucose Random 179 mg/dL (60-115); Potassium 3.2 mmol/L (3.3-5.1); Sodium 136 mmol/L (135-145)
[2024-03-24] MEDS: Lidocaine 4 % Patch ADH..PATCH 1 PATCH TRANSDERMA (07:58)
[2024-03-24] MEDS: Salmeterol Xinafoate 50 MCG BLST.W.DEV 1 PUFF INHALE ×2 (08:00→20:07)
[2024-03-24] MEDS: Fluticasone Propionate 100 MCG BLST.W.DEV 1 PUFF INHALE ×2 (08:00→20:07)
[2024-03-24] MEDS: Fluticasone Propionate Nasal 16 GM SPRAY 2 SPRAY NOSTRIL-B (08:11)
[2024-03-24] MEDS: allopurinoL 100 MG TABLET PO (08:13)
[2024-03-24 09:21] LABS: Adenovirus PCR Not Detected (Not Detect.); Bordetella parapertussis PCR Not Detected (Not Detect.); Bordetella pertussis PCR Not Detected (Not Detect.); Chlamydia pneumoniae PCR Not Detected (Not Detect.); Coronavirus 229E PCR Not Detected (Not Detect.); Coronavirus HKU1 PCR Not Detected (Not Detect.); Coronavirus NL63 PCR Not Detected (Not Detect.); Coronavirus OC43 PCR Not Detected (Not Detect.); Human metapneumovirus PCR Not Detected (Not Detect.); Influenza A PCR Not Detected (Not Detect.); Influenza B PCR Not Detected (Not Detect.); Mycoplasma pneumoniae PCR Not Detected (Not Detect.); Parainfluenza 1 PCR Not Detected (Not Detect.); Parainfluenza 2 PCR Not Detected (Not Detect.); Parainfluenza 3 PCR Not Detected (Not Detect.); Parainfluenza 4 PCR Not Detected (Not Detect.); RSV PCR Not Detected (Not Detect.); Rhino/Enterovirus PCR Not Detected (Not Detect.); SARS-CoV-2 PCR Not Detected (Not Detect.)
--- NOTE | 2024-03-24 09:56 | MHC.CM.PN ---
Per MD, patient is not medically cleared for dc. Will likely stay until Tuesday. [facility] updated via [facility].
--- NOTE | 2024-03-24 10:18 | P.PNCA_ITS ---
Subjective Subjective Date of Service: 03/24/24 Interval history: Patient seen in follow-up. Yesterday, she had atrial fibrillation with rapid rate but converted to sinus rhythm. She was okay but it seems that she had 1 other bout of atrial fibrillation for the last few hours. Again back in normal sinus rhythm. She states she feels fine; does not have any complaints. Review of Systems Review of Systems Yes all other systems are reviewed and are negative Constitutional: Reports as per HPI and Reports no additional constitutional complaints Eyes: Reports as per HPI and Denies no additional eye complaints Denies system reviewed and no additional complaints, except as documented and Reports as per HPI Cardiovascular: Reports as per HPI, Reports no additional cardiovascular complaints, Denies acrocyanosis, Denies cool extremities, Denies chest pain, Denies leg edema, Denies lightheadedness, Denies palpitations and Denies dyspnea Respiratory: Reports as per HPI, Denies no additional respiratory complaints and Denies dyspnea Gastrointestinal: Reports as per HPI and Denies no additional gastrointestinal complaints Genitourinary: Reports as per HPI Musculoskeletal: Reports no additional musculoskeletal complaints and Reports as per HPI Skin/Breast: Reports system reviewed and no additional complaints, except as docu Reports system reviewed and no additional complaints, except as documented and Reports as per HPI Psychiatric: Reports no additional psychiatric complaints and Reports as per HPI Endocrine: Reports no additional endocrine complaints, Reports as per HPI and Denies palpitations Hematologic/Lymphatic: Reports no additional hematologic/lymphatic complaints and Reports as per HPI Allergic/Immunologic: Reports no additional allergic/immunologic complaints and Reports as per HPI Physical Exam Vital Signs: Last Vital Signs Temp 98.5 F 03/24/24 07:00 Pulse 155 H 03/24/24 08:03 Resp 22 H 03/24/24 08:03 BP 131/62 03/24/24 07:00 Pulse Ox 94 03/24/24 07:00 O2 Del Method Nasal Cannula 03/24/24 07:00 O2 Flow Rate 2 03/24/24 07:00 BMI result Body Mass Index 36.2 Const General: comfortable and no acute distress Orientation/consciousness: patient oriented x3 HEENT Other: Unremarkable Head: Yes normal to inspection Neck Neck: Yes normal visual inspection Chest Chest palpation & inspection: normal inspection of the chest Resp Auscultation: clear to auscultation bilaterally Cardio Palpation: normal PMI Heart sounds: S1 normal heart sound present, S2 normal heart sound present, no gallops, no murmurs and no rubs GI Palpation (GI): Soft to palpation Back/Spine/Pelvis Other: unremarkable Skin General skin exam: no rashes or lesions noted Neuro General: patient oriented x3 Extrem General: Yes normal to inspection Psych Mental Status: mental status grossly normal Objective Labs and Meds 03/23/24 07:01 03/24/24 06:44 Lab results: Laboratory Results - last 24 hr 03/23/24 03/23/24 03/23/24 11:46 16:48 18:45 Hold Purple Top Sodium Potassium Chloride Carbon Dioxide Anion Gap BUN Creatinine Estim Creat Clear Calc Estimated GFR POC Glucose 183 H 148 H Random Glucose Calcium Respiratory Panel Barakat See Note Adenovirus (Rapid PCR) Not Detected B.pert (TEM-PCR) Not Detected B.parapertussis DNA PCR Not Detected C. pneumoniae DNA (PCR) Not Detected Coronavirus OC43 (PCR) Not Detected Coronavirus HKU1 (PCR) Not Detected Coronavirus 229E (PCR) Not Detected Coronavirus NL63 (PCR) Not Detected Human Metapneumovir PCR Not Detected Influenza A (RT-PCR) Not Detected Influenza B (RT-PCR) Not Detected M. pneumoniae (PCR) Not Detected Parainfluenza 1 (PCR) Not Detected Parainfluenza 2 (PCR) Not Detected Parainfluenza 3 (PCR) Not Detected Parainfluenza 4 (PCR) Not Detected RSV (PCR) Not Detected Entero/Rhino (PCR) Not Detected SARS-CoV-2 RNA (RT-PCR) Not Detected 03/23/24 03/24/24 03/24/24 21:29 06:44 06:58 Hold Purple Top SEE NOTE Sodium 136 Potassium 3.2 L Chloride 104 Carbon Dioxide 19 L Anion Gap 16 BUN 31 H Creatinine 0.85 Estim Creat Clear Calc 44.3 Estimated GFR > 60 POC Glucose 151 H 173 H Random Glucose 179 H Calcium 9.1 D Respiratory Panel Barakat Adenovirus (Rapid PCR) B.pert (TEM-PCR) B.parapertussis DNA PCR C. pneumoniae DNA (PCR) Coronavirus OC43 (PCR) Coronavirus HKU1 (PCR) Coronavirus 229E (PCR) Coronavirus NL63 (PCR) Human Metapneumovir PCR Influenza A (RT-PCR) Influenza B (RT-PCR) M. pneumoniae (PCR) Parainfluenza 1 (PCR) Parainfluenza 2 (PCR) Parainfluenza 3 (PCR) Parainfluenza 4 (PCR) RSV (PCR) Entero/Rhino (PCR) SARS-CoV-2 RNA (RT-PCR) Progress Note: A&P Assessment and plan (1) Atrial fibrillation with RVR: Status: Acute Plan Atrial fibrillation with rapid ventricular response but currently back in normal sinus rhythm. Likely related to underlying medical issues. Clinically, she seems quite well compensated from cardiac. In the echocardiogram, LVEF 59%. No significant valvular findings. She has been started on amiodarone loading and we can keep that. She is on home dose of metoprolol and that dose has been increased. She is also on Cardizem drip at this time but we can wean that and stopped as she is already back in normal sinus rhythm. Hopefully, with the amiodarone load, she should be able to maintain sinus rhythm. With regard to anticoagulation, can discussed about it but she is not willing as there is a history of apparent GI bleed but it was several decades ago. To be addressed through her own outpatient siebel administrator. Discussed with Dr. Triana. Time Spent With Patient Time: Total time managing care of this patient today ____ minutes. Progress Note: Quality Stroke Does the patient have a stroke diagnosis?: No Procedures Date of Service Date of Service: 03/24/24
[2024-03-24 10:52] LABS: Glucose, Whole Blood 179 mg/dL (60-115)
--- NOTE | 2024-03-24 14:22 | P.PNIM_ITS ---
Subjective Subjective Date of Service: 03/24/24 Interval History: Seen and evaluated this morning feels little better went into Afib w RvR overnight again started on Cardizem drip, converted back to sinus this morning no other events Review of Systems Review of Systems: Yes all other systems are reviewed and are negative Physical Exam 2 Vital Signs: Vital Signs: Last Vital Signs Temp 98.5 F 03/24/24 10:51 Pulse 96 03/24/24 10:51 Resp 20 03/24/24 10:51 BP 125/61 03/24/24 10:51 Pulse Ox 92 03/24/24 10:51 O2 Del Method Nasal Cannula 03/24/24 10:51 O2 Flow Rate 2 03/24/24 10:51 BMI result Body Mass Index 36.2 Const: Other: Constitutional : Awake, interactive, not in distress Neck : Normal inspection, Supple Cardiovascular : RRR, tachycardia, no JVP, no lower extremity edema Respiratory : good bilateral air entry, no crackles, wheezes or rhonchi Gastrointestinal: soft, lax, Normal bowel sounds, Non tender Skin : Warm, Dry Neurological : Alert & oriented x3, No focal deficit Objective Data Active Medications Acetaminophen (Acetaminophen 325 Mg Tablet) 975 mg PO Q6H PRN PRN Reason: Pain, Mild (Pain Scale 1-3), fever or headache Last Admin: 03/22/24 15:44 Dose: 975 mg Documented By: MAYLIN Allopurinol (Allopurinol 100 Mg Tablet) 100 mg PO DAILY [facility] Last Admin: 03/24/24 08:13 Dose: 100 mg Documented By: AMANDA Alprazolam (Alprazolam 0.25 Mg Tablet) 0.125 mg PO TID PRN PRN Reason: Anxiety Last Admin: 03/24/24 07:36 Dose: 0.125 mg Documented By: AMANDA Amiodarone HCl (Amiodarone Hcl 200 Mg Tablet) 400 mg PO BID [facility] Last Admin: 03/24/24 07:37 Dose: 400 mg Documented By: AMANDA Atorvastatin Calcium (Atorvastatin Calcium 80 Mg Tablet) 80 mg PO DAILY [facility] Last Admin: 03/24/24 07:37 Dose: 80 mg Documented By: AMANDA Calcium Carbonate (Calcium Carbonate 750 Mg Tab.Chew) 750 mg PO Q4H PRN PRN Reason: Heartburn Cefuroxime Axetil (Cefuroxime Axetil 500 Mg Tablet) 500 mg PO BID [facility] Last Admin: 03/24/24 07:37 Dose: 500 mg Documented By: AMANDA Diphenhydramine HCl (Diphenhydramine Hcl 25 Mg Capsule) 25 mg PO BEDTIME [facility] Last Admin: 03/23/24 20:19 Dose: 25 mg Documented By: SHELTON Docusate Sodium (Docusate Sodium 100 Mg Capsule) 200 mg PO DAILY [facility] Last Admin: 03/24/24 07:37 Dose: 200 mg Documented By: AMANDA Duloxetine HCl (Duloxetine Hcl 30 Mg Capsule.Dr) 30 mg PO BID [facility] Last Admin: 03/24/24 07:35 Dose: 30 mg Documented By: AMANDA Fluticasone Propionate (Fluticasone Propionate 100 Mcg Blst.W.Dev) 1 puff INHALE RBID [facility] Last Admin: 03/24/24 08:00 Dose: 1 puff Documented By: MERLE Fluticasone Propionate (Fluticasone Propionate Nasal 16 Gm [place]) 2 spray NOSTRIL-B DAILY [facility] Last Admin: 03/24/24 08:11 Dose: 2 spray Documented By: AMANDA Gabapentin (Gabapentin 100 Mg Capsule) 100 mg PO BID [facility] Last Admin: 03/24/24 07:35 Dose: 100 mg Documented By: AMANDA Glucose (Glucose Gel 15 Gm Gel..Gram.) 15 gm PO Q15M PRN; Protocol PRN Reason: per Hypoglycemia Standing Ord. Dextrose (D10) 250 mls @ 750 mls/hr IV Q15M PRN; Protocol PRN Reason: per Hypoglycemia Standing Ord. Metronidazole (Flagyl) 500 mg in 100 mls @ 100 mls/hr IV Q8H [facility] Last Infusion: 03/24/24 11:05 Dose: Infused Documented By: AMANDA Diltiazem HCl 125 mg/ Sodium (Chloride) 125 mls @ 0 mls/hr IVCONT .Q0M [facility]; Protocol Last Titration: 03/24/24 12:45 Dose: 5 mg/hr, 5 mls/hr Documented By: AMANDA Insulin Human Lispro (Insulin Lispro 100 Unit/Ml 3 Ml Vial) 0 unit SUBCUT QIDACHS [facility]; Protocol Last Admin: 03/24/24 12:03 Dose: 2 unit Documented By: AMANDA Lidocaine (Lidocaine 4 % Patch Adh..Patch) 1 patch TRANSDERMA DAILY [facility]; Protocol Last Admin: 03/24/24 07:58 Dose: 1 patch Documented By: AMANDA Loperamide HCl (Loperamide Hcl 2 Mg Capsule) 2 mg PO Q6H PRN PRN Reason: Diarrhea Loratadine (Loratadine 10 Mg Tablet) 10 mg PO DAILY [facility] Last Admin: 03/24/24 07:37 Dose: 10 mg Documented By: AMANDA Losartan Potassium (Losartan Potassium 50 Mg Tablet) 50 mg PO DAILY [facility]; Protocol Last Admin: 03/21/24 08:10 Dose: 50 mg Documented By: ASHLEY Methocarbamol (Methocarbamol 500 Mg Tablet) 500 mg PO TID [facility] Last Admin: 03/24/24 07:37 Dose: 500 mg Documented By: AMANDA Metoprolol Succinate (Metoprolol Succinate Er 100 Mg Tab.Er.24h) 100 mg PO DAILY [facility]; Protocol Last Admin: 03/24/24 07:37 Dose: 100 mg Documented By: AMANDA Montelukast Sodium (Montelukast Sodium 10 Mg Tablet) 10 mg PO BEDTIME [facility] Last Admin: 03/23/24 20:20 Dose: 10 mg Documented By: SHELTON Morphine Sulfate (Morphine Sulfate Immed Release 15 Mg Tablet) 15 mg PO Q4H PRN PRN Reason: Pain, Severe (Pain Scale 7-10) Last Admin: 03/24/24 12:05 Dose: 15 mg Documented By: AMANDA Omeprazole (Omeprazole 20 Mg Capsule.Dr) 20 mg PO DAILY@0630 [facility] Last Admin: 03/24/24 07:33 Dose: Not Given Documented By: AMANDA Non-Admin Reason: NOT MY PT AT THIS TIME Ondansetron HCl (Ondansetron Hcl 4 Mg/2 Ml Vial) 4 mg IVPUSH Q8H PRN PRN Reason: Nausea and Vomiting Polyethylene Glycol (Polyethylene Glycol 3350 17 Gm Powd.Pack) 17 gm PO DAILY [facility] Last Admin: 03/24/24 07:38 Dose: 17 gm Documented By: AMANDA Salmeterol Xinafoate (Salmeterol Xinafoate 50 Mcg Blst.W.Dev) 1 puff INHALE RBID [facility] Last Admin: 03/24/24 08:00 Dose: 1 puff Documented By: MERLE Echeverriana (Sennosides 8.6 Mg Tablet) 17.2 mg PO BEDTIME [facility] Last Admin: 03/23/24 20:19 Dose: 17.2 mg Documented By: SHELTON Sodium Chloride (0.9 % Sodium Chloride Flush 3 Ml Syringe) 3 ml IVFLUSH QSHIFT [facility] Last Admin: 03/24/24 07:35 Dose: 3 ml Documented By: BETTYSCEL Labs 03/23/24 07:01 03/24/24 06:44 Labs: Laboratory Results - last 24 hr 03/23/24 03/23/24 03/23/24 16:48 18:45 21:29 Hold Purple Top Anion Gap Estim Creat Clear Calc Estimated GFR POC Glucose 148 H 151 H Random Glucose Calcium Respiratory Panel Barakat See Note Adenovirus (Rapid PCR) Not Detected B.pert (TEM-PCR) Not Detected B.parapertussis DNA PCR Not Detected C. pneumoniae DNA (PCR) Not Detected Coronavirus OC43 (PCR) Not Detected Coronavirus HKU1 (PCR) Not Detected Coronavirus 229E (PCR) Not Detected Coronavirus NL63 (PCR) Not Detected Human Metapneumovir PCR Not Detected Influenza A (RT-PCR) Not Detected Influenza B (RT-PCR) Not Detected M. pneumoniae (PCR) Not Detected Parainfluenza 1 (PCR) Not Detected Parainfluenza 2 (PCR) Not Detected Parainfluenza 3 (PCR) Not Detected Parainfluenza 4 (PCR) Not Detected RSV (PCR) Not Detected Entero/Rhino (PCR) Not Detected SARS-CoV-2 RNA (RT-PCR) Not Detected 03/24/24 03/24/24 03/24/24 06:44 06:58 10:46 Hold Purple Top SEE NOTE Anion Gap 16 Estim Creat Clear Calc 44.3 Estimated GFR > 60 POC Glucose 173 H 179 H Random Glucose 179 H Calcium 9.1 D Respiratory Panel Barakat Adenovirus (Rapid PCR) B.pert (TEM-PCR) B.parapertussis DNA PCR C. pneumoniae DNA (PCR) Coronavirus OC43 (PCR) Coronavirus HKU1 (PCR) Coronavirus 229E (PCR) Coronavirus NL63 (PCR) Human Metapneumovir PCR Influenza A (RT-PCR) Influenza B (RT-PCR) M. pneumoniae (PCR) Parainfluenza 1 (PCR) Parainfluenza 2 (PCR) Parainfluenza 3 (PCR) Parainfluenza 4 (PCR) RSV (PCR) Entero/Rhino (PCR) SARS-CoV-2 RNA (RT-PCR) Microbiology Microbiology Results: Microbiology 03/22/24 17:33 Blood Culture - Preliminary Blood - Venous No growth after 24 hours. 03/22/24 17:25 Blood Culture - Preliminary Blood - Venous No growth after 24 hours. Assessment and Plan (1) Atrial fibrillation with RVR: Status: Acute (2) Diverticulitis: Status: Acute Plan 84F PMH VD, diabetes, paroxysmal atrial fibrillation, hypertension, gout, GERD, anxiety, hyperlipidemia presented with abdominal pain diarrhea PAF w RvR Started on Cardizem drip overnight, converted to sinus DC Cardizem drip start Amiodarone load 03/23, to give extra dose today Increase Metoprolol succinate to 100 Mg improved Cardiology input appreciated Echo showing EF 60% Keep on Tele refuses anticoagulation for reported major bleed in past Leukocytosis trending down to 13K monitor as patient on antibiotics Acute diverticulitis Continue levofloxacin and Flagyl On solid diet Pain control Diabetes Insulin sliding scale COPD Stable Hypertension Metoprolol, losartan Anxiety Xanax, Cymbalta Gout Continue allopurinol Recent right humerus and left 5th metatarsal fracture Pain control PT/OT appreciated - plan for rehab DVT prophylaxis-mechanical due to history of bleeding even with prophylactic anticoagulation Full code reason for continued hospitalization: Afib w RvR on Telemetry and needs IV and PO Medications and close monitoring Quality Stroke Does the patient have a stroke diagnosis?: No VTE Prior VTE?: No VTE Risk Level:: Medical - moderate - high VTE Device Contraindication: Treatment Not Indicated VTE Drug Contraindication: N/A - Med Ordered
[2024-03-24] MEDS: metroNIDAZOLE 500 MG TABLET PO ×2 (14:46→22:34)
[2024-03-24] MEDS: Potassium Chloride Packet 20 MEQ PACKET 40 MEQ PO (16:51)
[2024-03-24 16:52] LABS: Glucose, Whole Blood 191 mg/dL (60-115)
[2024-03-24] MEDS: Sennosides 8.6 MG TABLET 17.2 MG PO (20:02)
[2024-03-24] MEDS: diphenhydrAMINE HCL 25 MG CAPSULE PO (20:02)
[2024-03-24] MEDS: Montelukast Sodium 10 MG TABLET PO (20:02)
[2024-03-24 20:47] LABS: Glucose, Whole Blood 168 mg/dL (60-115)
[2024-03-25] VITALS (8 sets, daily range): BP systolic 104–141; BP diastolic 46–70; PULSE 77–145; RESP 14–18; TEMP 35.9–36.8; O2SAT 94–98
[2024-03-25] MEDS: Omeprazole 20 MG CAPSULE.DR PO (05:50)
[2024-03-25] MEDS: metroNIDAZOLE 500 MG TABLET PO ×2 (06:09→15:08)
[2024-03-25] MEDS: HYDROcodone Bit/Acetam 5/325 TABLET 1 TAB PO (06:27)
[2024-03-25 06:42] LABS: Hematocrit 27.9 % (37.0-47.0); Hemoglobin 9.2 g/dl (12.0-16.0); Mean Corpuscular Hemoglobin 29.2 pg (27.0-33.0); Mean Corpuscular Volume 88.6 fL (80.0-98.0); Mean Platelet Volume 9.4 fL (9.4-12.3); Platelet Count 399 X10*3/uL (160-400); Red Blood Count 3.15 X10*6/uL (4.20-5.50); Red Cell Distribution Width 17.1 % (11.0-16.0); White Blood Count 15.9 X10*3/uL (4.8-10.8)
[2024-03-25 06:59] LABS: Anion Gap 14 (12-20); B Type Natriuretic Peptide 130 pg/mL (<100); Blood Urea Nitrogen 35 mg/dL (9-16); Calcium 9.1 mg/dL (8.4-10.2); Carbon Dioxide 18 mmol/L (22-29); Chloride 106 mmol/L (96-108); Creatinine Clr Calc Pharmacy 44.3; Estimated Glomerular Filt Rate > 60; Glucose Random 172 mg/dL (60-115); Potassium 3.4 mmol/L (3.3-5.1); Sodium 135 mmol/L (135-145)
[2024-03-25 07:00] LABS: Magnesium 2.3 mg/dL (1.6-2.6)
[2024-03-25] MEDS: Amiodarone HCL 200 MG TABLET 400 MG PO ×2 (07:28→20:18)
[2024-03-25] MEDS: Docusate Sodium 100 MG CAPSULE 200 MG PO (07:28)
[2024-03-25] MEDS: allopurinoL 100 MG TABLET PO (07:29)
[2024-03-25] MEDS: Metoprolol Succinate ER 100 MG TAB.ER.24H PO (07:29)
[2024-03-25] MEDS: Loratadine 10 MG TABLET PO (07:29)
[2024-03-25] MEDS: Gabapentin 100 MG CAPSULE PO ×2 (07:29→20:16)
[2024-03-25] MEDS: Atorvastatin Calcium 80 MG TABLET PO (07:29)
[2024-03-25] MEDS: cefuroxime axetiL 500 MG TABLET PO (07:29)
[2024-03-25] MEDS: methocarbamoL 500 MG TABLET PO ×3 (07:29→20:16)
[2024-03-25] MEDS: DULoxetine HCl 30 MG CAPSULE.DR PO ×2 (07:30→20:16)
[2024-03-25] MEDS: Insulin Lispro 100 UNIT/ML 3 ML VIAL SUBCUT ×2 (07:30→16:40)
[2024-03-25] MEDS: Salmeterol Xinafoate 50 MCG BLST.W.DEV 1 PUFF INHALE ×2 (08:02→20:22)
[2024-03-25] MEDS: Fluticasone Propionate 100 MCG BLST.W.DEV 1 PUFF INHALE ×2 (08:02→20:22)
[2024-03-25 08:23] LABS: Glucose, Whole Blood 180 mg/dL (60-115)
[2024-03-25] MEDS: 0.9 % Sodium Chloride Flush 3 ML SYRINGE IVFLUSH ×3 (08:30→20:19)
[2024-03-25] MEDS: dilTIAZem HCL 125 MG in 0.9 % Sodium Chloride 100 ML 10 MG IVCONT ×2 (08:33→20:36)
[2024-03-25] MEDS: Fluticasone Propionate Nasal 16 GM SPRAY 2 SPRAY NOSTRIL-B (09:58)
[2024-03-25] MEDS: Lidocaine 4 % Patch ADH..PATCH 1 PATCH TRANSDERMA (09:58)
--- NOTE | 2024-03-25 11:53 | PM.PNCARD ---
Subjective Subjective Date of Service: 03/25/24 Interval history: Seen and examined. Also discussed with hospitalist. It seems that she again had some atrial fibrillation but now back in normal sinus rhythm. Patient states she feels okay. Review of Systems Review of Systems Yes all other systems are reviewed and are negative Constitutional: Reports as per HPI and Reports no additional constitutional complaints Eyes: Reports as per HPI and Denies no additional eye complaints Denies system reviewed and no additional complaints, except as documented and Reports as per HPI Cardiovascular: Reports as per HPI, Reports no additional cardiovascular complaints, Denies acrocyanosis, Denies cool extremities, Denies chest pain, Denies leg edema, Denies lightheadedness, Denies palpitations and Denies dyspnea Respiratory: Reports as per HPI, Denies no additional respiratory complaints and Denies dyspnea Gastrointestinal: Reports as per HPI and Denies no additional gastrointestinal complaints Musculoskeletal: Reports no additional musculoskeletal complaints and Reports as per HPI Skin/Breast: Reports system reviewed and no additional complaints, except as docu Reports system reviewed and no additional complaints, except as documented and Reports as per HPI Psychiatric: Reports no additional psychiatric complaints and Reports as per HPI Endocrine: Reports no additional endocrine complaints, Reports as per HPI and Denies palpitations Hematologic/Lymphatic: Reports no additional hematologic/lymphatic complaints and Reports as per HPI Allergic/Immunologic: Reports no additional allergic/immunologic complaints and Reports as per HPI Physical Exam Vital Signs: Last Vital Signs Temp 97.3 F 03/25/24 11:30 Pulse 77 03/25/24 11:30 Resp 18 03/25/24 11:30 BP 134/63 03/25/24 11:30 Pulse Ox 96 03/25/24 11:30 O2 Del Method Nasal Cannula 03/25/24 11:30 O2 Flow Rate 1 03/25/24 11:30 BMI result Body Mass Index 36.2 Const General: comfortable and no acute distress Orientation/consciousness: patient oriented x3 HEENT Other: Unremarkable Head: Yes normal to inspection Neck Neck: Yes normal visual inspection Chest Chest palpation & inspection: normal inspection of the chest Resp Auscultation: clear to auscultation bilaterally Cardio Palpation: normal PMI Heart sounds: S1 normal heart sound present, S2 normal heart sound present, no gallops, no murmurs and no rubs GI Palpation (GI): Soft to palpation Back/Spine/Pelvis Other: unremarkable Skin General skin exam: no rashes or lesions noted Neuro General: patient oriented x3 Extrem General: Yes normal to inspection Psych Mental Status: mental status grossly normal Objective Labs and Meds 03/25/24 06:08 03/25/24 06:08 Lab results: Laboratory Results - last 24 hr 03/24/24 03/24/24 03/25/24 16:48 20:43 06:08 WBC 15.9 H RBC 3.15 L Hgb 9.2 L Hct 27.9 L MCV 88.6 MCH 29.2 MCHC 33.0 RDW 17.1 H Plt Count 399 MPV 9.4 Absolute Nucleated RBC 0.000 Nucleated RBC % (auto) 0.0 Sodium 135 Potassium 3.4 Chloride 106 Carbon Dioxide 18 L Anion Gap 14 BUN 35 H Creatinine 0.85 Estim Creat Clear Calc 44.3 Estimated GFR > 60 POC Glucose 191 H 168 H Random Glucose 172 H Calcium 9.1 Magnesium 2.3 B-Natriuretic Peptide 130 H 03/25/24 07:15 WBC RBC Hgb Hct MCV MCH MCHC RDW Plt Count MPV Absolute Nucleated RBC Nucleated RBC % (auto) Sodium Potassium Chloride Carbon Dioxide Anion Gap BUN Creatinine Estim Creat Clear Calc Estimated GFR POC Glucose 180 H Random Glucose Calcium Magnesium B-Natriuretic Peptide Progress Note: A&P Assessment and plan (1) Atrial fibrillation with RVR: Status: Acute Plan Atrial fibrillation with rapid ventricular response but currently back in normal sinus rhythm. Likely related to underlying medical issues. Clinically, she seems quite well compensated from cardiac. In the echocardiogram, LVEF 59%. No significant valvular findings. For medications, we can slow down on the Cardizem drip and stop it. Continue amiodarone loading. Beta-berenice dose has been increased. Also start oral diltiazem he is responding to it very well. With regard to anticoagulation, discussed about it but she is not willing as there is a history of apparent GI bleed but it was several decades ago. To be addressed through her own outpatient pathology manager. Discussed with Dr. Triana. Time Spent With Patient Time: Total time managing care of this patient today ____ minutes. Progress Note: Quality Stroke Does the patient have a stroke diagnosis?: No Procedures Date of Service Date of Service: 03/25/24
[2024-03-25 11:57] LABS: Glucose, Whole Blood 145 mg/dL (60-115)
--- NOTE | 2024-03-25 13:19 | HO.PM.IMPN ---
Subjective Subjective Date of Service: 03/25/24 Interval History: Seen and evaluated this morning having more cough went into Afib w RvR overnight again for 3rd night , started on Cardizem drip, converted back to sinus this morning no other events Review of Systems Review of Systems: Yes all other systems are reviewed and are negative Physical Exam Vital Signs: Vital Signs: Last Vital Signs Temp 97.3 F 03/25/24 11:30 Pulse 77 03/25/24 11:30 Resp 18 03/25/24 11:30 BP 134/63 03/25/24 11:30 Pulse Ox 96 03/25/24 11:30 O2 Del Method Nasal Cannula 03/25/24 11:30 O2 Flow Rate 1 03/25/24 11:30 BMI result Body Mass Index 36.2 Const: Other: Constitutional : Awake, interactive, not in distress Neck : Normal inspection, Supple Cardiovascular : RRR, tachycardia, no JVP, no lower extremity edema Respiratory : good bilateral air entry, no crackles, wheezes or rhonchi Gastrointestinal: soft, lax, Normal bowel sounds, Non tender Skin : Warm, Dry Neurological : Alert & oriented x3, No focal deficit Objective Data Active Medications Acetaminophen (Acetaminophen 325 Mg Tablet) 975 mg PO Q6H PRN PRN Reason: Pain, Mild (Pain Scale 1-3), fever or headache Last Admin: 03/22/24 15:44 Dose: 975 mg Documented By: MAYLIN Hydrocodone Bitart/Acetaminophen (Hydrocodone Bit/Acetam 5/325 Tablet) 1 tab PO Q4H PRN PRN Reason: Pain, Severe (Pain Scale 7-10) Last Admin: 03/25/24 06:27 Dose: 1 tab Documented By: SHELTON Allopurinol (Allopurinol 100 Mg Tablet) 100 mg PO DAILY REPLACED BY [facility] Last Admin: 03/25/24 07:29 Dose: 100 mg Documented By: HECTOR Alprazolam (Alprazolam 0.25 Mg Tablet) 0.125 mg PO TID PRN PRN Reason: Anxiety Last Admin: 03/24/24 07:36 Dose: 0.125 mg Documented By: AMANDA Amiodarone HCl (Amiodarone Hcl 200 Mg Tablet) 400 mg PO BID REPLACED BY [facility] Last Admin: 03/25/24 07:28 Dose: 400 mg Documented By: HECTOR Atorvastatin Calcium (Atorvastatin Calcium 80 Mg Tablet) 80 mg PO DAILY REPLACED BY [facility] Last Admin: 03/25/24 07:29 Dose: 80 mg Documented By: HECTOR Calcium Carbonate (Calcium Carbonate 750 Mg Tab.Chew) 750 mg PO Q4H PRN PRN Reason: Heartburn Cefuroxime Axetil (Cefuroxime Axetil 500 Mg Tablet) 500 mg PO BID REPLACED BY [facility] Last Admin: 03/25/24 07:29 Dose: 500 mg Documented By: HECTOR Diltiazem HCl (Diltiazem Hcl Cd 120 Mg Cap.Er.Deg) 120 mg PO DAILY REPLACED BY [facility]; Protocol Diphenhydramine HCl (Diphenhydramine Hcl 25 Mg Capsule) 25 mg PO BEDTIME REPLACED BY [facility] Last Admin: 03/24/24 20:02 Dose: 25 mg Documented By: SHELTON Docusate Sodium (Docusate Sodium 100 Mg Capsule) 200 mg PO DAILY REPLACED BY [facility] Last Admin: 03/25/24 07:28 Dose: 200 mg Documented By: HECTOR Duloxetine HCl (Duloxetine Hcl 30 Mg Capsule.Dr) 30 mg PO BID REPLACED BY [facility] Last Admin: 03/25/24 07:30 Dose: 30 mg Documented By: HECTOR Fluticasone Propionate (Fluticasone Propionate 100 Mcg Blst.W.Dev) 1 puff INHALE RBID REPLACED BY [facility] Last Admin: 03/25/24 08:02 Dose: 1 puff Documented By: MERLE Fluticasone Propionate (Fluticasone Propionate Nasal 16 Gm [place]) 2 spray NOSTRIL-B DAILY REPLACED BY [facility] Last Admin: 03/25/24 09:58 Dose: 2 spray Documented By: HECTOR Gabapentin (Gabapentin 100 Mg Capsule) 100 mg PO BID REPLACED BY [facility] Last Admin: 03/25/24 07:29 Dose: 100 mg Documented By: HECTOR Glucose (Glucose Gel 15 Gm Gel..Gram.) 15 gm PO Q15M PRN; Protocol PRN Reason: per Hypoglycemia Standing Ord. Dextrose (D10) 250 mls @ 750 mls/hr IV Q15M PRN; Protocol PRN Reason: per Hypoglycemia Standing Ord. Diltiazem HCl 125 mg/ Sodium (Chloride) 125 mls @ 0 mls/hr IVCONT .Q0M REPLACED BY [facility]; Protocol Last Titration: 03/25/24 12:00 Dose: 0 mg/hr, 0 mls/hr Documented By: HECTOR Insulin Human Lispro (Insulin Lispro 100 Unit/Ml 3 Ml Vial) 0 unit SUBCUT QIDACHS REPLACED BY [facility]; Protocol Last Admin: 03/25/24 12:33 Dose: Not Given Documented By: EHCTOR Non-Admin Reason: No Insulin Coverage Lidocaine (Lidocaine 4 % Patch Adh..Patch) 1 patch TRANSDERMA DAILY REPLACED BY [facility]; Protocol Last Admin: 03/25/24 09:58 Dose: 1 patch Documented By: HECTOR Loperamide HCl (Loperamide Hcl 2 Mg Capsule) 2 mg PO Q6H PRN PRN Reason: Diarrhea Loratadine (Loratadine 10 Mg Tablet) 10 mg PO DAILY REPLACED BY [facility] Last Admin: 03/25/24 07:29 Dose: 10 mg Documented By: HECTOR Losartan Potassium (Losartan Potassium 50 Mg Tablet) 50 mg PO DAILY REPLACED BY [facility]; Protocol Last Admin: 03/21/24 08:10 Dose: 50 mg Documented By: ASHLEY Methocarbamol (Methocarbamol 500 Mg Tablet) 500 mg PO TID REPLACED BY [facility] Last Admin: 03/25/24 07:29 Dose: 500 mg Documented By: HECTOR Metoprolol Succinate (Metoprolol Succinate Er 100 Mg Tab.Er.24h) 100 mg PO DAILY REPLACED BY [facility]; Protocol Last Admin: 03/25/24 07:29 Dose: 100 mg Documented By: HECTOR Metronidazole (Metronidazole 500 Mg Tablet) 500 mg PO Q8H REPLACED BY [facility] Last Admin: 03/25/24 06:09 Dose: 500 mg Documented By: SHELTON Montelukast Sodium (Montelukast Sodium 10 Mg Tablet) 10 mg PO BEDTIME REPLACED BY [facility] Last Admin: 03/24/24 20:02 Dose: 10 mg Documented By: SHELTON Omeprazole (Omeprazole 20 Mg Capsule.) 20 mg PO DAILY@0630 REPLACED BY [facility] Last Admin: 03/25/24 05:50 Dose: 20 mg Documented By: SHELTON Ondansetron HCl (Ondansetron Hcl 4 Mg/2 Ml Vial) 4 mg IVPUSH Q8H PRN PRN Reason: Nausea and Vomiting Polyethylene Glycol (Polyethylene Glycol 3350 17 Gm Powd.Pack) 17 gm PO DAILY REPLACED BY [facility] Last Admin: 03/25/24 10:03 Dose: Not Given Documented By: HECTOR Non-Admin Reason: Patient Refused Salmeterol Xinafoate (Salmeterol Xinafoate 50 Mcg Blst.W.Dev) 1 puff INHALE RBID REPLACED BY [facility] Last Admin: 03/25/24 08:02 Dose: 1 puff Documented By: MERLE Senna (Sennosides 8.6 Mg Tablet) 17.2 mg PO BEDTIME REPLACED BY [facility] Last Admin: 03/24/24 20:02 Dose: 17.2 mg Documented By: SHELTON Sodium Chloride (0.9 % Sodium Chloride Flush 3 Ml Syringe) 3 ml IVFLUSH QSHIFT REPLACED BY [facility] Last Admin: 03/25/24 08:30 Dose: 3 ml Documented By: HECTOR Labs 03/25/24 06:08 03/25/24 06:08 Labs: Laboratory Results - last 24 hr 03/24/24 03/24/24 03/25/24 16:48 20:43 06:08 MCV 88.6 MCH 29.2 MCHC 33.0 RDW 17.1 H Plt Count 399 MPV 9.4 Absolute Nucleated RBC 0.000 Nucleated RBC % (auto) 0.0 Anion Gap 14 Estim Creat Clear Calc 44.3 Estimated GFR > 60 POC Glucose 191 H 168 H Random Glucose 172 H Calcium 9.1 Magnesium 2.3 B-Natriuretic Peptide 130 H 03/25/24 03/25/24 07:15 11:33 MCV MCH MCHC RDW Plt Count MPV Absolute Nucleated RBC Nucleated RBC % (auto) Anion Gap Estim Creat Clear Calc Estimated GFR POC Glucose 180 H 145 H Random Glucose Calcium Magnesium B-Natriuretic Peptide Microbiology Microbiology Results: Microbiology 03/22/24 17:33 Blood Culture - Preliminary Blood - Venous No growth after 48 hours. 03/22/24 17:25 Blood Culture - Preliminary Blood - Venous No growth after 48 hours. Assessment and Plan (1) Atrial fibrillation with RVR: Status: Acute (2) Diverticulitis: Status: Acute Plan 84F PMH VD, diabetes, paroxysmal atrial fibrillation, hypertension, gout, GERD, anxiety, hyperlipidemia presented with abdominal pain diarrhea PAF w RvR Started on Cardizem drip this morning, converted to sinus DC Cardizem drip and start CD Cardizem 120 mg start Amiodarone load 03/23, Metoprolol succinate to baseline of 75mg Mg improved Cardiology input appreciated Echo showing EF 60% Keep on Tele refuses anticoagulation for reported major bleed in past Leukocytosis trending to 15k monitor as patient on antibiotics repeat CXR Acute diverticulitis Continue levofloxacin and Flagyl On solid diet Pain control Diabetes Insulin sliding scale COPD Stable Hypertension Metoprolol, losartan Anxiety Xanax, Cymbalta Gout Continue allopurinol Recent right humerus and left 5th metatarsal fracture Pain control PT/OT appreciated - plan for rehab DVT prophylaxis-mechanical due to history of bleeding even with prophylactic anticoagulation Full code reason for continued hospitalization: Afib w RvR on Telemetry and needs IV and PO Medications and close monitoring Quality Stroke Does the patient have a stroke diagnosis?: No VTE Prior VTE?: No VTE Risk Level:: Medical - moderate - high VTE Device Contraindication: Treatment Not Indicated VTE Drug Contraindication: N/A - Med Ordered
[2024-03-25] MEDS: dilTIAZem HCL CD 120 MG CAP.ER.DEG PO (13:52)
[2024-03-25 16:22] LABS: Glucose, Whole Blood 154 mg/dL (60-115)
[2024-03-25] MEDS: Furosemide 20 MG/2 ML VIAL IVPUSH (17:04)
[2024-03-25] MEDS: cefTRIAXone sodium 2 GM VIAL IVPUSH (17:04)
[2024-03-25] MEDS: Doxycycline Hyclate 100 MG in 0.9 % Sodium Chloride 250 ML 166.67 MG IV (17:36)
[2024-03-25] MEDS: Loperamide HCl 2 MG CAPSULE PO (20:15)
[2024-03-25] MEDS: diphenhydrAMINE HCL 25 MG CAPSULE PO (20:16)
[2024-03-25] MEDS: Montelukast Sodium 10 MG TABLET PO (20:18)
[2024-03-25] MEDS: guaiFENesin LA 600 MG TAB.ER.12H PO (20:19)
[2024-03-25 20:21] LABS: Glucose, Whole Blood 117 mg/dL (60-115)
[2024-03-25] MEDS: dilTIAZem HCL 60 MG TABLET PO (20:27)
[2024-03-26] VITALS (12 sets, daily range): BP systolic 100–141; BP diastolic 48–73; PULSE 73–123; RESP 14–20; TEMP 36.1–36.9; O2SAT 92–99
[2024-03-26] MEDS: ALPRAZolam 0.25 MG TABLET 0.125 MG PO (00:08)
[2024-03-26] MEDS: metroNIDAZOLE 500 MG TABLET PO ×3 (00:08→15:47)
[2024-03-26] MEDS: dilTIAZem HCL 60 MG TABLET PO ×2 (02:14→08:04)
[2024-03-26] MEDS: HYDROcodone Bit/Acetam 5/325 TABLET 1 TAB PO (02:15)
[2024-03-26] MEDS: Loperamide HCl 2 MG CAPSULE PO ×2 (02:16→08:04)
[2024-03-26] MEDS: Doxycycline Hyclate 100 MG in 0.9 % Sodium Chloride 250 ML 166.67 MG IV ×2 (05:59→17:14)
[2024-03-26] MEDS: Omeprazole 20 MG CAPSULE.DR PO (05:59)
[2024-03-26 07:30] LABS: Glucose, Whole Blood 155 mg/dL (60-115)
[2024-03-26] MEDS: Fluticasone Propionate 100 MCG BLST.W.DEV 1 PUFF INHALE ×2 (07:53→20:23)
[2024-03-26] MEDS: Salmeterol Xinafoate 50 MCG BLST.W.DEV 1 PUFF INHALE ×2 (07:53→20:23)
[2024-03-26] MEDS: Amiodarone HCL 200 MG TABLET 400 MG PO ×3 (08:04→21:27)
[2024-03-26] MEDS: DULoxetine HCl 30 MG CAPSULE.DR PO ×2 (08:04→21:22)
[2024-03-26] MEDS: methocarbamoL 500 MG TABLET PO ×3 (08:04→21:23)
[2024-03-26] MEDS: Gabapentin 100 MG CAPSULE PO ×2 (08:05→21:22)
[2024-03-26] MEDS: Atorvastatin Calcium 80 MG TABLET PO (08:05)
[2024-03-26] MEDS: Insulin Lispro 100 UNIT/ML 3 ML VIAL SUBCUT ×2 (08:05→21:23)
[2024-03-26] MEDS: guaiFENesin LA 600 MG TAB.ER.12H PO ×2 (08:05→21:22)
[2024-03-26] MEDS: allopurinoL 100 MG TABLET PO (08:05)
[2024-03-26] MEDS: Loratadine 10 MG TABLET PO (08:05)
[2024-03-26] MEDS: Metoprolol Succinate ER 25 MG TAB.ER.24H 75 MG PO (08:05)
[2024-03-26] MEDS: 0.9 % Sodium Chloride Flush 3 ML SYRINGE IVFLUSH ×2 (08:05→15:52)
[2024-03-26] MEDS: Furosemide 20 MG/2 ML VIAL IVPUSH ×2 (08:05→17:09)
[2024-03-26 08:31] LABS: Anion Gap 16 (12-20); Blood Urea Nitrogen 29 mg/dL (9-16); Calcium 8.7 mg/dL (8.4-10.2); Carbon Dioxide 18 mmol/L (22-29); Chloride 106 mmol/L (96-108); Creatinine Clr Calc Pharmacy 54.6; Estimated Glomerular Filt Rate > 60; Glucose Random 152 mg/dL (60-115); Magnesium 1.9 mg/dL (1.6-2.6); Potassium 3.1 mmol/L (3.3-5.1); Sodium 137 mmol/L (135-145)
[2024-03-26 08:46] LABS: Hematocrit 26.9 % (37.0-47.0); Hemoglobin 9.1 g/dl (12.0-16.0); Mean Corpuscular HGB Conc 33.8 g/dl (31.0-35.0); Mean Corpuscular Hemoglobin 29.2 pg (27.0-33.0); Mean Corpuscular Volume 86.2 fL (80.0-98.0); Mean Platelet Volume 8.9 fL (9.4-12.3); Platelet Count 413 X10*3/uL (160-400); Red Blood Count 3.12 X10*6/uL (4.20-5.50); Red Cell Distribution Width 17.2 % (11.0-16.0); White Blood Count 15.4 X10*3/uL (4.8-10.8)
[2024-03-26 09:18] LABS: B Type Natriuretic Peptide 252 pg/mL (<100)
--- NOTE | 2024-03-26 10:34 | PC.NURSE ---
Addendum entered by Kelsey Escobedo RN 03/26/24 10:49: cardizem drip d/c - disconnected pt Original Note: Per protocol shut off cardizem drip if HR <120, discussed with willis, stated to leave on for now as pt keeps flipping back and forth SR and afib, usually sitting in low 100s HR at this time.
[2024-03-26] MEDS: Apixaban 5 MG TABLET PO ×2 (10:42→21:22)
--- NOTE | 2024-03-26 10:45 | P.PNCA_ITS ---
Subjective Subjective Date of Service: 03/26/24 Interval history: Seen and examined at bedside. Complaining of some shortness of breath. Has been in and out of atrial fibrillation. Physical Exam Vital Signs: Last Vital Signs Temp 96.9 F 03/26/24 07:30 Pulse 112 H 03/26/24 08:02 Resp 17 03/26/24 07:55 BP 128/58 L 03/26/24 07:30 Pulse Ox 94 03/26/24 07:30 O2 Del Method Room Air 03/26/24 07:30 O2 Flow Rate 2 03/26/24 04:00 BMI result Body Mass Index 36.2 GENERAL APPEARANCE: Short of breath. Mildly wheezy. NECK: no carotid bruit, + jugular venous distention. SKIN: no suspicious lesions, warm and dry. HEART: no murmurs, irregular rate and rhythm. LUNGS: End expiratory wheezes. ABDOMEN: soft, nontender. EXTREMITIES: no edema. PERIPHERAL PULSES: equal. NEUROLOGIC: No gross deficits, AAO X 3 Objective Labs and Meds 03/26/24 08:00 03/26/24 07:51 Lab results: Laboratory Results - last 24 hr 03/25/24 03/25/24 03/25/24 11:33 16:18 20:13 WBC RBC Hgb Hct MCV MCH MCHC RDW Plt Count MPV Absolute Nucleated RBC Nucleated RBC % (auto) Sodium Potassium Chloride Carbon Dioxide Anion Gap BUN Creatinine Estim Creat Clear Calc Estimated GFR POC Glucose 145 H 154 H 117 H Random Glucose Calcium Magnesium B-Natriuretic Peptide 03/26/24 03/26/24 03/26/24 07:26 07:51 08:00 WBC 15.4 H RBC 3.12 L Hgb 9.1 L Hct 26.9 L MCV 86.2 MCH 29.2 MCHC 33.8 RDW 17.2 H Plt Count 413 H MPV 8.9 L Absolute Nucleated RBC 0.000 Nucleated RBC % (auto) 0.0 Sodium 137 Potassium 3.1 L Chloride 106 Carbon Dioxide 18 L Anion Gap 16 BUN 29 H Creatinine 0.69 Estim Creat Clear Calc 54.6 Estimated GFR > 60 POC Glucose 155 H Random Glucose 152 H Calcium 8.7 Magnesium 1.9 B-Natriuretic Peptide 252 H Imaging Radiologist's impression: Impressions Chest X-Ray 03/25/24 13:38 IMPRESSION: New right midlung opacity suspicious for pneumonia. Electronically signed by: Christopher Mars MD 03/25/2024 03:[address] [facility] Progress Note: A&P Assessment and plan (1) Atrial fibrillation with RVR: Status: Acute (2) Diastolic heart failure: Status: Acute Plan [age] female with AFib with RVR. She has been on Cardizem off and on and has been on Cardizem drip since 15:00 yesterday. She converts to sinus rhythm in between but goes back into atrial fibrillation. She had GI bleed while she was on Coumadin and refused anticoagulation but after some discussion she is agreeable to take Eliquis. We will start her on 5 mg twice a day. Clinically volume overloaded and would benefit from gentle diuresis. Replete potassium. Stop the Cardizem and avoid using it again. We will follow along with you. Monitor hemoglobin while she is inpatient. Thank you for allowing me to participate in the care of your patient. Please feel free to contact me if you have any questions. Time Spent With Patient Time: Total time managing care of this patient today ____ minutes. Progress Note: Quality Stroke Does the patient have a stroke diagnosis?: No Procedures Date of Service Date of Service: 03/26/24
[2024-03-26] MEDS: QUEtiapine Fumarate 25 MG TABLET 12.5 MG PO (10:55)
[2024-03-26] MEDS: Potassium Chloride Packet 20 MEQ PACKET 40 MEQ PO ×2 (10:59→13:49)
[2024-03-26] MEDS: Potassium Chloride/H20 10 MEQ/100 ML PIGGYBACK 100 MEQ IV ×2 (11:11→12:37)
[2024-03-26 11:35] LABS: Glucose, Whole Blood 138 mg/dL (60-115)
--- NOTE | 2024-03-26 13:23 | HO.PM.IMPN ---
Subjective Subjective Date of Service: 03/26/24 Interval History: Seen and evaluated this morning having went into Afib w RvR overnight again for 4rd night , started on Cardizem drip no other events Review of Systems Review of Systems: Yes all other systems are reviewed and are negative Physical Exam Vital Signs: Vital Signs: Last Vital Signs Temp 97.3 F 03/26/24 12:00 Pulse 74 03/26/24 12:00 Resp 14 03/26/24 12:00 BP 129/64 03/26/24 12:00 Pulse Ox 94 03/26/24 12:00 O2 Del Method Room Air 03/26/24 12:00 O2 Flow Rate 2 03/26/24 04:00 BMI result Body Mass Index 36.2 Const: Other: Constitutional : Awake, interactive, not in distress Neck : Normal inspection, Supple Cardiovascular : irregular irregular, tachycardia, +ve JVP, trace lower extremity edema Respiratory : good bilateral air entry, no crackles, wheezes or rhonchi Gastrointestinal: soft, lax, Normal bowel sounds, Non tender Skin : Warm, Dry Neurological : Alert & oriented x3, No focal deficit Objective Data Active Medications Acetaminophen (Acetaminophen 325 Mg Tablet) 975 mg PO Q6H PRN PRN Reason: Pain, Mild (Pain Scale 1-3), fever or headache Last Admin: 03/22/24 15:44 Dose: 975 mg Documented By: MAYLIN Hydrocodone Bitart/Acetaminophen (Hydrocodone Bit/Acetam 5/325 Tablet) 1 tab PO Q4H PRN PRN Reason: Pain, Severe (Pain Scale 7-10) Last Admin: 03/26/24 02:15 Dose: 1 tab Documented By: TYRONE Allopurinol (Allopurinol 100 Mg Tablet) 100 mg PO DAILY [facility] Last Admin: 03/26/24 08:05 Dose: 100 mg Documented By: SHANNAN Alprazolam (Alprazolam 0.25 Mg Tablet) 0.125 mg PO TID PRN PRN Reason: Anxiety Last Admin: 03/26/24 00:08 Dose: 0.125 mg Documented By: TYRONE Amiodarone HCl (Amiodarone Hcl 200 Mg Tablet) 400 mg PO BID [facility] Last Admin: 03/26/24 08:04 Dose: 400 mg Documented By: SHANNAN Apixaban (Apixaban 5 Mg Tablet) 5 mg PO BID [facility] Last Admin: 03/26/24 10:42 Dose: 5 mg Documented By: SHANNAN Atorvastatin Calcium (Atorvastatin Calcium 80 Mg Tablet) 80 mg PO DAILY [facility] Last Admin: 03/26/24 08:05 Dose: 80 mg Documented By: SHANNAN Calcium Carbonate (Calcium Carbonate 750 Mg Tab.Chew) 750 mg PO Q4H PRN PRN Reason: Heartburn Ceftriaxone Sodium (Ceftriaxone Sodium 2 Gm Vial) 2 gm IVPUSH Q24H [facility] Last Admin: 03/25/24 17:04 Dose: 2 gm Documented By: HECTOR Docusate Sodium (Docusate Sodium 100 Mg Capsule) 200 mg PO DAILY [facility] Last Admin: 03/25/24 07:28 Dose: 200 mg Documented By: HECTOR Duloxetine HCl (Duloxetine Hcl 30 Mg Capsule.Dr) 30 mg PO BID [facility] Last Admin: 03/26/24 08:04 Dose: 30 mg Documented By: SHANNAN Fluticasone Propionate (Fluticasone Propionate 100 Mcg Blst.W.Dev) 1 puff INHALE RBID [facility] Last Admin: 03/26/24 07:53 Dose: 1 puff Documented By: MARY JO Fluticasone Propionate (Fluticasone Propionate Nasal 16 Gm [place]) 2 spray NOSTRIL-B DAILY [facility] Last Admin: 03/26/24 08:16 Dose: Not Given Documented By: SHANNAN Non-Admin Reason: Patient Refused Furosemide (Furosemide 20 Mg/2 Ml Vial) 20 mg IVPUSH DAILY [facility]; Protocol Last Admin: 03/26/24 08:05 Dose: 20 mg Documented By: SHANNAN Gabapentin (Gabapentin 100 Mg Capsule) 100 mg PO BID [facility] Last Admin: 03/26/24 08:05 Dose: 100 mg Documented By: SHANNAN Glucose (Glucose Gel 15 Gm Gel..Gram.) 15 gm PO Q15M PRN; Protocol PRN Reason: per Hypoglycemia Standing Ord. Guaifenesin (Guaifenesin La 600 Mg Tab.Er.12h) 600 mg PO BID [facility] Last Admin: 03/26/24 08:05 Dose: 600 mg Documented By: SHANNAN Dextrose (D10) 250 mls @ 750 mls/hr IV Q15M PRN; Protocol PRN Reason: per Hypoglycemia Standing Ord. Doxycycline Hyclate 100 mg/ (Sodium Chloride) 250 mls @ 166.67 mls/hr IV Q12H [facility] Last Infusion: 03/26/24 08:07 Dose: Infused Documented By: SHANNAN Insulin Human Lispro (Insulin Lispro 100 Unit/Ml 3 Ml Vial) 0 unit SUBCUT QIDACHS [facility]; Protocol Last Admin: 03/26/24 11:35 Dose: Not Given Documented By: SHANNAN Non-Admin Reason: No Insulin Coverage Lidocaine (Lidocaine 4 % Patch Adh..Patch) 1 patch TRANSDERMA DAILY [facility]; Protocol Last Admin: 03/26/24 08:08 Dose: Not Given Documented By: SHANNAN Non-Admin Reason: Patient Refused Loperamide HCl (Loperamide Hcl 2 Mg Capsule) 2 mg PO Q6H PRN PRN Reason: Diarrhea Last Admin: 03/26/24 08:04 Dose: 2 mg Documented By: SHANNAN Loratadine (Loratadine 10 Mg Tablet) 10 mg PO DAILY [facility] Last Admin: 03/26/24 08:05 Dose: 10 mg Documented By: SHANNAN Losartan Potassium (Losartan Potassium 50 Mg Tablet) 50 mg PO DAILY [facility]; Protocol Last Admin: 03/21/24 08:10 Dose: 50 mg Documented By: ASHLYE Methocarbamol (Methocarbamol 500 Mg Tablet) 500 mg PO TID [facility] Last Admin: 03/26/24 08:04 Dose: 500 mg Documented By: SHANNAN Metoprolol Succinate (Metoprolol Succinate Er 100 Mg Tab.Er.24h) 100 mg PO DAILY [facility]; Protocol Metronidazole (Metronidazole 500 Mg Tablet) 500 mg PO Q8H [facility] Last Admin: 03/26/24 05:59 Dose: 500 mg Documented By: TYRONE Montelukast Sodium (Montelukast Sodium 10 Mg Tablet) 10 mg PO BEDTIME [facility] Last Admin: 03/25/24 20:18 Dose: 10 mg Documented By: TYRONE Omeprazole (Omeprazole 20 Mg Capsule.Dr) 20 mg PO DAILY@0630 [facility] Last Admin: 03/26/24 05:59 Dose: 20 mg Documented By: TYRONE Salmeterol Xinafoate (Salmeterol Xinafoate 50 Mcg Blst.W.Dev) 1 puff INHALE RBID [facility] Last Admin: 03/26/24 07:53 Dose: 1 puff Documented By: MARY JO Senna (Sennosides 8.6 Mg Tablet) 17.2 mg PO BEDTIME [facility] Last Admin: 03/25/24 17:38 Dose: Not Given Documented By: HECTOR Non-Admin Reason: patient has diarrhea Sodium Chloride (0.9 % Sodium Chloride Flush 3 Ml Syringe) 3 ml IVFLUSH QSHIFT [facility] Last Admin: 03/26/24 08:05 Dose: 3 ml Documented By: SHANNAN Labs 03/26/24 08:00 03/26/24 07:51 Labs: Laboratory Results - last 24 hr 03/25/24 03/25/24 03/26/24 16:18 20:13 07:26 MCV MCH MCHC RDW Plt Count MPV Absolute Nucleated RBC Nucleated RBC % (auto) Anion Gap Estim Creat Clear Calc Estimated GFR POC Glucose 154 H 117 H 155 H Random Glucose Calcium Magnesium B-Natriuretic Peptide 03/26/24 03/26/24 03/26/24 07:51 08:00 11:29 MCV 86.2 MCH 29.2 MCHC 33.8 RDW 17.2 H Plt Count 413 H MPV 8.9 L Absolute Nucleated RBC 0.000 Nucleated RBC % (auto) 0.0 Anion Gap 16 Estim Creat Clear Calc 54.6 Estimated GFR > 60 POC Glucose 138 H Random Glucose 152 H Calcium 8.7 Magnesium 1.9 B-Natriuretic Peptide 252 H Assessment and Plan (1) Diastolic heart failure: Status: Acute (2) Atrial fibrillation with RVR: Status: Acute (3) Sepsis: Status: Acute (4) Diverticulitis: Status: Acute (5) Pneumonia: Status: Acute Plan 84F PMH VD, diabetes, paroxysmal atrial fibrillation, hypertension, gout, GERD, anxiety, hyperlipidemia presented with abdominal pain diarrhea PAF w RvR Started on Cardizem drip this morning, converted to sinus DC Cardizem drip start Amiodarone load 03/23, Metoprolol succinate to 100mg Mg improved Cardiology input appreciated, DC Cardizem, diuresis, extra dose of Amiodarone Echo showing EF 60% Keep on Tele agreed to take anticoagulation, start Eliquis 5 mg bid Hospital aquired acute delerium reorientation Seroquel PRN Leukocytosis 2/2 pneumonia CXR showing new infiltrate monitor as patient on antibiotics repeat CXR Acute diverticulitis Continue levofloxacin and Flagyl On solid diet Pain control Diabetes Insulin sliding scale COPD Stable Hypertension Metoprolol, losartan Anxiety Xanax, Cymbalta Gout Continue allopurinol Recent right humerus and left 5th metatarsal fracture Pain control PT/OT appreciated - plan for rehab DVT prophylaxis-mechanical due to history of bleeding even with prophylactic anticoagulation Full code reason for continued hospitalization: Afib w RvR on Telemetry and needs IV and PO Medications and close monitoring Quality Stroke Does the patient have a stroke diagnosis?: No VTE Prior VTE?: No VTE Risk Level:: Medical - moderate - high VTE Device Contraindication: Treatment Not Indicated VTE Drug Contraindication: N/A - Med Ordered
[2024-03-26 15:29] LABS: Glucose, Whole Blood 146 mg/dL (60-115)
--- NOTE | 2024-03-26 15:40 | MHC.SLORD ---
Speech Language Pathology Order Status: Pt refusing all PO other than liquids and ice chips. Per RN report pt has been coughing, though this cough is ongoing not in presence of PO. CASTING CLEANER to formally assess when pt accepting PO trials. Recc diet as ordered pending further evaluation.
[2024-03-26] MEDS: Magnesium Sulfate/H2O 2 GM/50 ML PIGGYBACK IV (15:44)
[2024-03-26] MEDS: cefTRIAXone sodium 2 GM VIAL IVPUSH (17:10)
[2024-03-26 19:37] LABS: Glucose, Whole Blood 156 mg/dL (60-115)
[2024-03-26] MEDS: Sennosides 8.6 MG TABLET 17.2 MG PO (21:22)
[2024-03-26] MEDS: Montelukast Sodium 10 MG TABLET PO (21:22)
[2024-03-27] MEDS: metroNIDAZOLE 500 MG TABLET PO ×2 (01:10→07:07)
[2024-03-27] MEDS: 0.9 % Sodium Chloride Flush 3 ML SYRINGE IVFLUSH (01:11)
[2024-03-27 03:39] VITALS: BP 141/65; PULSE 86; RESP 18; TEMP 36.3; O2SAT 94
[2024-03-27] MEDS: Doxycycline Hyclate 100 MG in 0.9 % Sodium Chloride 250 ML 166.67 MG IV (06:46)
[2024-03-27 07:00] LABS: Glucose, Whole Blood 145 mg/dL (60-115)
[2024-03-27 07:03] VITALS: BP 132/63; PULSE 90; RESP 20; TEMP 37; O2SAT 96
[2024-03-27] MEDS: Omeprazole 20 MG CAPSULE.DR PO (07:07)
[2024-03-27] MEDS: Salmeterol Xinafoate 50 MCG BLST.W.DEV 1 PUFF INHALE (08:21)
[2024-03-27] MEDS: Fluticasone Propionate 100 MCG BLST.W.DEV 1 PUFF INHALE (08:21)
[2024-03-27 08:25] LABS: Anion Gap 17 (12-20); Blood Urea Nitrogen 26 mg/dL (9-16); Calcium 8.7 mg/dL (8.4-10.2); Carbon Dioxide 20 mmol/L (22-29); Chloride 105 mmol/L (96-108); Creatinine Clr Calc Pharmacy 50.2; Estimated Glomerular Filt Rate > 60; Glucose Random 143 mg/dL (60-115); Potassium 3.7 mmol/L (3.3-5.1); Sodium 138 mmol/L (135-145)
[2024-03-27 08:30] VITALS: PULSE 90; RESP 18; O2SAT 97
[2024-03-27] MEDS: Loratadine 10 MG TABLET PO (08:54)
[2024-03-27] MEDS: Atorvastatin Calcium 80 MG TABLET PO (08:54)
[2024-03-27] MEDS: Amiodarone HCL 200 MG TABLET 400 MG PO (08:54)
[2024-03-27] MEDS: guaiFENesin LA 600 MG TAB.ER.12H PO (08:54)
[2024-03-27] MEDS: Metoprolol Succinate ER 100 MG TAB.ER.24H PO (08:54)
[2024-03-27] MEDS: Gabapentin 100 MG CAPSULE PO (08:54)
[2024-03-27] MEDS: methocarbamoL 500 MG TABLET PO (08:54)
[2024-03-27] MEDS: Apixaban 5 MG TABLET PO (08:54)
[2024-03-27] MEDS: allopurinoL 100 MG TABLET PO (08:54)
[2024-03-27] MEDS: Furosemide 20 MG/2 ML VIAL IVPUSH (08:55)
[2024-03-27] MEDS: DULoxetine HCl 30 MG CAPSULE.DR PO (08:55)
[2024-03-27] MEDS: Fluticasone Propionate Nasal 16 GM SPRAY 2 SPRAY NOSTRIL-B (08:55)
--- NOTE | 2024-03-27 09:30 | MHC.CM.PN ---
IMM 03/27/24 DELIVERED TO BEDSIDE, PT MEDICALLY CLEARED FOR DC TO STR AT [facility] FOR BLS TRANSPORT
[2024-03-27 10:55] LABS: Glucose, Whole Blood 166 mg/dL (60-115)
[2024-03-27 10:56] VITALS: BP 139/63; PULSE 88; RESP 20; TEMP 36.9; O2SAT 96
--- NOTE | 2024-03-27 12:14 | PM.PNCARD ---
Subjective Subjective Date of Service: 03/27/24 Interval history: Seen and examined at bedside. In sinus rhythm. Physical Exam Vital Signs: Last Vital Signs Temp 98.5 F 03/27/24 10:56 Pulse 88 03/27/24 10:56 Resp 20 03/27/24 10:56 BP 139/63 03/27/24 10:56 Pulse Ox 96 03/27/24 10:56 O2 Del Method Room Air 03/27/24 10:56 O2 Flow Rate 2 03/27/24 03:39 BMI result Body Mass Index 36.2 GENERAL APPEARANCE: In no acute distress. NECK: no carotid bruit, + jugular venous distention. SKIN: no suspicious lesions, warm and dry. HEART: no murmurs, irregular rate and rhythm. LUNGS: Clear to auscultation. ABDOMEN: soft, nontender. EXTREMITIES: no edema. PERIPHERAL PULSES: equal. NEUROLOGIC: No gross deficits, AAO X 3 Objective Labs and Meds 03/26/24 08:00 03/27/24 07:24 Lab results: Laboratory Results - last 24 hr 03/26/24 03/26/24 03/27/24 15:23 19:33 06:57 Sodium Potassium Chloride Carbon Dioxide Anion Gap BUN Creatinine Estim Creat Clear Calc Estimated GFR POC Glucose 146 H 156 H 145 H Random Glucose Calcium 03/27/24 03/27/24 07:24 10:50 Sodium 138 Potassium 3.7 Chloride 105 Carbon Dioxide 20 L Anion Gap 17 BUN 26 H Creatinine 0.75 Estim Creat Clear Calc 50.2 Estimated GFR > 60 POC Glucose 166 H Random Glucose 143 H Calcium 8.7 Progress Note: A&P Assessment and plan (1) Diastolic heart failure: Status: Acute (2) Atrial fibrillation with RVR: Status: Acute Plan Pleasant 84 year female with diverticulitis, paroxysmal atrial fibrillation and congestive heart failure. She was started on amiodarone and has been in sinus rhythm. She was not on anticoagulation previously because she had bleeding on Coumadin but after some discussion she is agreed to take Eliquis. We will monitor her hemoglobin closely. She does look little overloaded and would benefit from IV diuretics. Home dose of Lasix should be 40 mg daily. Thank you for allowing me to participate in the care of your patient. Please feel free to contact me if you have any questions. Time Spent With Patient Time: Total time managing care of this patient today ____ minutes. Progress Note: Quality Stroke Does the patient have a stroke diagnosis?: No Procedures Date of Service Date of Service: 03/27/24
[2024-03-27] MEDS: Insulin Lispro 100 UNIT/ML 3 ML VIAL SUBCUT (12:18)
--- NOTE | 2024-03-27 13:32 | P.DS_ITS ---
DS: Providers Provider Date of Service: 03/27/24 Date of admission: 03/17/24 11:36 Date of discharge: 03/27/24 Primary care physician: Melissa Shannon MD Consults: 03/23/24 05:54 Consult to Cardiology Routine Consulting Provider: [facility] Reason for consultation: AF with RVR Has provider been notified: Yes DS: Diagnosis Discharge Diagnosis (1) Diastolic heart failure: Status: Acute (2) Atrial fibrillation with RVR: Status: Acute (3) Pneumonia: Status: Acute (4) Narrow complex tachycardia: Status: Acute (5) Sepsis: Status: Acute (6) Diverticulitis: Status: Acute DS: Summary Hospital Course Hospital Course: The patient has prolonged hospital stay. for full details return to full EMR. Admission note HPI Joyce Waddell is 84 years old woman complex past medical history including COPD - not home oxygen, type 2 diabetes mellitus on sitagliptin/metformin, paroxysmal AFib not on anticoagulation, essential hypertension, gout, GERD, anxiety and hyperlipidemia presents to the ED complaining of generalized body aches, watery nonbloody diarrhea, generalized abdominal discomfort and mild pain with urination. She denied nausea or vomiting. She denies fevers or chills. She has chronic pain that she attributes to COPD. Recently (March 08) she recently to ED after she sustained a fall resulting in left 5th metatarsal fracture and right distal humeral fracture. She has been taking Tylenol with codeine without significant improvement of pain. Her past surgical history significant for stomach surgery for PUD when she was very region as well as hysterectomy. In the ED, she was found to have normal vital signs. Initially she presented with mild degree of tachycardia, 116 bpm. Blood workup showed mild leukocytosis of 12.4 (better that prior). There is no lactic acidosis. There are no electrolyte imbalances. Creatinine is 0.89 and BUN 19. LFTs, lipase, BNP and troponin are normal. ECG showed normal sinus rhythm, 99 bpm and incomplete RBBB without ischemic changes. Abdomen pelvis CT scan without contrast showed moderate to severe colonic diverticulosis and nonspecific changes in the sigmoid colon that could represent mild active diverticulitis. Hospital course # Paroxysmal Atrial fibrillation w RvR complicated her hospital stay. Started on Cardizem drip and converted to sinus rhythm on multiple occasions. evaluated by cardiology who recommended starting Amiodarone load 03/23 along her home dose Metoprolol succinate. she received supplement for Magnesium. Echo showing EF 60%. Cardiology recommended to continue Amiodarone along Metoprolol with a plan to follow up as outpatient. # Hospital aquired acute delerium resolved with reorientation and Seroquel PRN # right lower lobe pneumonia CXR showed new infiltrate that was treated with IV antibiotics with good response as she was weaned down to room air. # Sepsis on admission secondary to Acute diverticulitis Treated on admission based on CT scan fidings. moved her bowels. tolerated diet as she was treated with IV levofloxacin and Flagyl. # Recent right humerus and left 5th metatarsal fracture Pain control with codiene and Tylenol. PT/OT evaluated the patient and suggested rehab Discharge plan Continue Amiodarone 400 mg twice a day for 9 more days Continue Ceftin and Doxycycline Eliquis 5 mg twice a day Cough medicine Lidocaine patch for pain Time Attestation Discharge Coordination Time (in mins): 46 Quality: Safe Use of Opioids Does Pt have an Active Cancer Diagnosis on the Problem List?: No Quality: Stroke Does the patient have a stroke diagnosis?: No Physical Exam Vital Signs: Vital Signs: Last Vital Signs Temp 98.5 F 03/27/24 10:56 Pulse 88 03/27/24 10:56 Resp 20 03/27/24 10:56 BP 139/63 03/27/24 10:56 Pulse Ox 96 03/27/24 10:56 O2 Del Method Room Air 03/27/24 10:56 O2 Flow Rate 2 03/27/24 03:39 BMI result Body Mass Index 36.2 Const: Other: Constitutional : Awake, interactive, not in distress Neck : Normal inspection, Supple Cardiovascular : regular, tachycardia, JVP, trace lower extremity edema Respiratory : good bilateral air entry, no crackles, wheezes or rhonchi Gastrointestinal: soft, lax, Normal bowel sounds, Non tender Skin : Warm, Dry Extremities: right humeral fracture in sling Neurological : Alert & oriented x3, No focal deficit DS: Data Data Completed and Pending Labs on day of discharge: Laboratory Results - last 24 hr 03/26/24 03/26/24 03/27/24 15:23 19:33 06:57 Sodium Potassium Chloride Carbon Dioxide Anion Gap BUN Creatinine Estim Creat Clear Calc Estimated GFR POC Glucose 146 H 156 H 145 H Random Glucose Calcium 03/27/24 03/27/24 07:24 10:50 Sodium 138 Potassium 3.7 Chloride 105 Carbon Dioxide 20 L Anion Gap 17 BUN 26 H Creatinine 0.75 Estim Creat Clear Calc 50.2 Estimated GFR > 60 POC Glucose 166 H Random Glucose 143 H Calcium 8.7 Preliminary micro results at discharge 03/22/24 17:33 Blood Culture - Preliminary Blood - Venous No growth after 48 hours. 03/22/24 17:25 Blood Culture - Preliminary Blood - Venous No growth after 48 hours. Imaging Chest x-ray: Radiologist's impression: ITS Impressions Chest X-Ray 03/17/24 08:31 IMPRESSION: Low lung volumes without acute pulmonary pathology. Electronically signed by: Madhav Everett MD 03/17/2024 09:06 AM EST RP Abdomen/Pelvis CT 03/17/24 08:43 IMPRESSION: 1. Moderate to severe colonic diverticulosis. There is suggestion of mild segmental wall thickening of the sigmoid colon with minimal pericolonic stranding. Findings are nonspecific but may represent a very mild active diverticulitis. 2. Bilateral renal cysts. Fleischner guidelines were followed. Electronically signed by: Madhav Everett MD 03/17/2024 09:03 AM EST RP Chest X-Ray 03/22/24 17:20 IMPRESSION: Streaky opacities in the lung bases, likely atelectasis. Electronically signed by: Tylor Frye MD 03/22/2024 05:49 PM EST RP Chest X-Ray 03/25/24 13:38 IMPRESSION: New right midlung opacity suspicious for pneumonia. Electronically signed by: Christophre Mars MD 03/25/2024 03:52 PM EST RP Discharge Plan Discharge Anticipated Discharge Date/Time: 03/27/24 13:14 Patient Disposition: Xfer SNF Discharge Diagnosis: Diverticulitis Pneumonia Afib w RvR Referrals: [facility] [Outside] - 1 Day (SHORT TERM REHAB) Melissa Shannon MD [Primary Care Provider] - 1 Week Discharge Medications: New Eliquis 5 mg Tablet 5 mg PO BID Qty: 60 0RF lidocaine [Lidocaine Pain Relief] 4 % Adhesive Patch,Medicated 1 patch transdermal DAILY Qty: 20 0RF Protocol: Apply to: Apply to: back amiodarone 200 mg Tablet 400 mg PO BID Qty: 36 0RF guaifenesin [Mucinex] 600 mg Tablet Extended Release 12hr 600 mg PO BID Qty: 20 0RF amiodarone 200 mg tablet 200 mg PO DAILY Qty: 90 0RF Rx Instructions: start after finishing the 400 mg twice a day. doxycycline monohydrate 100 mg capsule 100 mg PO BID Qty: 10 0RF cefuroxime axetil 500 mg tablet 500 mg PO BID Qty: 10 0RF furosemide 40 mg tablet 40 mg PO QAM Qty: 90 0RF Continued (DME) blood-glucose meter [FreeStyle Lite Meter] Kit See Rx Instructions .ROUTE .MEDSUPPLY Qty: 1 0RF Rx Instructions: Check blood sugar once a day as directed albuterol sulfate [Ventolin HFA] 90 mcg/actuation HFA aerosol inhaler 2 puff inhalation Q4-6H PRN (Reason: for wheezing) Qty: 18 0RF Serevent Diskus 50 mcg/dose blister with device 1 inh inhalation BID 30 Days Qty: 120 5RF (DME) nebulizers Misc See Rx Instructions .Route Qty: 1 0RF Rx Instructions: As directed albuterol sulfate 2.5 mg /3 mL (0.083 %) solution for nebulization 2.5 mg inhalation Q6H PRN (Reason: shortness of breath or wheezing) 30 Days Qty: 180 5RF sitagliptin phos-metformin 50-500 mg tablet 1 tab PO BID 90 Days Qty: 180 1RF Arnuity Ellipta 100 mcg/actuation blister with device 1 inh inhalation DAILY 30 Days Qty: 30 5RF epinephrine [EpiPen] 0.3 mg/0.3 mL auto-injector 0.3 mg IM ONCE PRN (Reason: anaphylaxis) Qty: 1 0RF Rx Instructions: do not exceed 12 doses per 24 hrs losartan 50 mg tablet 50 mg PO DAILY Qty: 90 1RF allopurinol 100 mg tablet 100 mg PO DAILY Qty: 90 1RF montelukast 10 mg tablet 10 mg PO BEDTIME Qty: 90 3RF rosuvastatin 20 mg tablet 20 mg PO BEDTIME Qty: 90 1RF (DME) Head & foot electric bed with half side rails See Rx Instructions .Route .MEDSUPPLY Qty: 1 0RF Rx Instructions: head and foot electric bed with 2 half side rails (DME) Re-usable/washable adult pads See Rx Instructions .Route .MEDSUPPLY Qty: 4 6RF Rx Instructions: As directed (DME) Adult facial/body wipes See Rx Instructions .Route .MEDSUPPLY Qty: 4 11RF Rx Instructions: As directed (DME) adult pull-ups (medium) See Rx Instructions .Route .MEDSUPPLY Qty: 120 11RF Rx Instructions: As directed acetaminophen 500 mg Tablet 1,000 mg PO Q6H PRN (Reason: Pain) diphenhydramine HCl 25 mg Tablet 25 mg PO BEDTIME docusate sodium [Stool Softener] 100 mg Capsule 200 mg PO DAILY PRN (Reason: Constipation) loratadine 10 mg Tablet 10 mg PO DAILY pantoprazole 40 mg tablet,delayed release (DR/EC) 40 mg PO DAILY@0630 gabapentin [Neurontin] 100 mg capsule 100 mg PO BID fluticasone propionate 50 mcg/actuation spray,suspension 2 spray intranasal DAILY Rx Instructions: administer into each nostril alprazolam 0.25 mg tablet 0.25 mg PO DAILY Qty: 20 0RF acetaminophen-codeine 300-30 mg tablet 1 tab PO Q8H PRN (Reason: pain) 49 Days Qty: 30 0RF metoprolol succinate 50 mg tablet extended release 24 hr 75 mg PO DAILY Protocol: Hold for SBP/HR < HOLD for SBP < : 90 HOLD for HR < : 60 duloxetine 30 mg capsule,delayed release(DR/EC) 30 mg PO BID ipratropium-albuterol 0.5 mg-3 mg(2.5 mg base)/3 mL solution for nebulization 3 ml inhalation Q6H PRN (Reason: wheezing/SOB) 30 Days Qty: 180 3RF Discontinued furosemide 20 mg tablet 20 mg PO DAILY Discharge Orders: Discharge Order (Routine); Ordered 03/27/24 Ordered By: Martha Triana Diet: Advance to usual diet Activity on Discharge: As tolerated Stand Alone Forms: Patient Portal Discharge page Print Language: Persian Care Plan Goals: Continue Amiodarone 400 mg twice a day for 9 more days Continue Ceftin and Doxycycline Eliquis 5 mg twice a day Cough medicine Lidocaine patch for pain Health Concerns: Atrial fibrillation Pneumonia Heart failure Plan of Treatment: Antibiotics Rate control medications blood thinner Assessment: as above
--- NOTE | 2024-04-17 12:06 | P.CDIM_ITS ---
PROVIDER RESPONSE TEXT: To clarify, the appropriate diagnosis supported by the clinical indicators: Sepsis has been ruled out and a more appropriate diagnosis for this patient's condition is QUERY TEXT: PHYSICIAN'S DOCUMENTATION REQUEST Date of Query: 04/09/2024 07:11 AM EST Patient Name: Joyce Waddell I Admit Date: 03/17/2024 Dear Martha Triana MD, A review of the medical record indicates additional documentation may be needed. Please review below and update the documentation accordingly. The purpose of this query is not to question medical judgment, but to ensure the accuracy of the cond itions reported for your patient. The diagnosis of Sepsis on admission secondary to acute diverticulitis is documented in the record on 03/27/24 in the Discharge Summary. There is either a lack of clinical support for this condition in the current medical record, or there is a lack of recognized standard criteria to support the condition. Clinical Indicators: Per Physician Clarification 03/20/24: Sepsis has been ruled out The request is for the following: Please clarify the documentation of Sepsis: Sepsis was present on admission and remains a known or suspected condition for this patient and is fu rther supported by Sepsis has been ruled out and a more appropriate diagnosis for this patient's condition is Other (explain) Clinically unable to determine (explain) Thank you, Denia Schwartz RN Use of terms such as suspected, likely, concern for, or probable (associated with a specific diagnosi s that is being evaluated, monitored, or treated as if it exists) are acceptable and can be coded in the inpatient se tting, when documented at the time of discharge. Please use your independent medical judgment in providing your response. THIS QUERY IS PART OF THE PERMANENT MEDICAL RECORD
== END 2024-03-27 13:50 | disposition skilled nursing facility (03) | DRG 391 ==
LOC: HO.ED 09:18 → HO.EDOVER 11:46 → HO.S3 13:25 → HO.IMC 03-21 10:44
PROVIDERS: Internal Medicine; Admitting Provider Internal Medicine; Emergency Provider Emergency Medicine; PCP Internal Medicine; Visit Provider Student in an Organized Health Care Education/Training Program
DX: K57.32 Diverticulitis of large intestine without perforation or abscess without bleeding (principal); I50.33 Acute on chronic diastolic (congestive) heart failure; J18.9 Pneumonia, unspecified organism; J44.0 Chronic obstructive pulmonary disease with (acute) lower respiratory infection; F05 Delirium due to known physiological condition; I11.0 Hypertensive heart disease with heart failure; E11.9 Type 2 diabetes mellitus without complications; I48.0 Paroxysmal atrial fibrillation; R00.0 Tachycardia, unspecified; F41.9 Anxiety disorder, unspecified; E78.5 Hyperlipidemia, unspecified; M10.9 Gout, unspecified; Z79.51 Long term (current) use of inhaled steroids; Z79.84 Long term (current) use of oral hypoglycemic drugs; Z79.899 Other long term (current) drug therapy
CPT/HCPCS: 0241U; 36415; 71045; 73030; 73060; 74176; 80048; 80053; 80076; 81003; 82947; 83605; 83690; 83735; 83880; 84484; 85025; 85027; 85610; 87040; 87493; 87507; 87633; 93005; 93306; 94640; 95806; 97110; 97162; 97166; 97530; 99285; J0696; J1160; J1836; J1920; J1940; J1956; J2270; J3475; J3480; Q9957

== ENCOUNTER → 2024-03-17 08:15 | Outpatient (BNV) | payer MEDICARE, MEDICAID, SELFPAY | PROVIDERS: Emergency Provider Emergency Medicine; PCP Internal Medicine; Visit Provider Internal Medicine Cardiovascular Disease | DX: R10.10 Upper abdominal pain, unspecified (principal) | CPT/HCPCS: 93010 ==

== ENCOUNTER 2024-03-17 11:36 | Outpatient (BNV) | payer MEDICARE, MEDICAID, SELFPAY | END 2024-03-21 10:26 | PROVIDERS: Admitting Provider Internal Medicine; Emergency Provider Emergency Medicine; PCP Internal Medicine; Visit Provider Internal Medicine | DX: R00.0 Tachycardia, unspecified (principal); I45.10 Unspecified right bundle-branch block; R94.31 Abnormal electrocardiogram [ECG] [EKG] | CPT/HCPCS: 93010 ==

== ENCOUNTER 2024-03-17 11:36 | Outpatient (BNV) | payer MEDICARE, MEDICAID, SELFPAY | END 2024-03-22 20:41 | PROVIDERS: Admitting Provider Internal Medicine; Emergency Provider Emergency Medicine; PCP Internal Medicine; Visit Provider Internal Medicine | DX: R94.31 Abnormal electrocardiogram [ECG] [EKG] (principal) | CPT/HCPCS: 93010 ==

== ENCOUNTER 2024-03-17 11:36 | Outpatient (BNV) | payer MEDICARE, MEDICAID, SELFPAY | END 2024-03-23 10:05 | PROVIDERS: Admitting Provider Internal Medicine; Emergency Provider Emergency Medicine; PCP Internal Medicine; Visit Provider Internal Medicine | DX: I35.8 Other nonrheumatic aortic valve disorders (principal); I34.81 Nonrheumatic mitral (valve) annulus calcification; I27.20 Pulmonary hypertension, unspecified | CPT/HCPCS: 93010; 93306 ==

== ENCOUNTER → 2024-03-17 11:36 | Outpatient (BNV) | payer MEDICARE, MEDICAID, SELFPAY | PROVIDERS: Admitting Provider Internal Medicine; Emergency Provider Emergency Medicine; PCP Internal Medicine; Visit Provider Internal Medicine | DX: I50.30 Unspecified diastolic (congestive) heart failure (principal); I48.91 Unspecified atrial fibrillation | CPT/HCPCS: 99223; 99233 ==

== ENCOUNTER → 2024-03-17 11:36 | Outpatient (BNV) | payer MEDICARE, MEDICAID, SELFPAY | PROVIDERS: Admitting Provider Internal Medicine; Emergency Provider Emergency Medicine; PCP Internal Medicine; Visit Provider Internal Medicine | DX: I50.30 Unspecified diastolic (congestive) heart failure (principal); I48.91 Unspecified atrial fibrillation; J18.9 Pneumonia, unspecified organism; I47.19 Other supraventricular tachycardia; A41.9 Sepsis, unspecified organism; K57.92 Diverticulitis of intestine, part unspecified, without perforation or abscess without bleeding | CPT/HCPCS: 99223; 99232; 99239; 99499 ==

== ENCOUNTER 2024-04-02 10:57 | Outpatient (REF) | payer MEDICARE, MEDICAID, SELFPAY | END 2024-04-02 10:58 | disposition home or self-care (01) | LOC: HO.HOSX 10:57 | PROVIDERS: Visit Provider Physician Assistant | DX: Z13.89 Encounter for screening for other disorder (principal) ==

== ENCOUNTER 2024-04-13 08:48 | Outpatient (REF) | payer MEDICARE, MEDICAID, SELFPAY | END 2024-04-13 08:49 | disposition home or self-care (01) | LOC: HO.HOSX 08:48 | PROVIDERS: Visit Provider Physician Assistant | DX: S42.391D Other fracture of shaft of right humerus, subsequent encounter for fracture with routine healing (principal) | CPT/HCPCS: 73060; 99212 ==

== ENCOUNTER 2024-04-13 11:27 | Outpatient (AMB) | payer MEDICARE, MEDICAID, SELFPAY ==
--- NOTE | 2024-04-13 11:38 | A.OFFVIS_ITS ---
Intake Visit Reasons: OV-Rt humerual shaft fx w xrays DOI 03/08/24 Intake Note: Joyce an 84 year old right hand dominant female who presents today for a follow up of right humerus fracture, DOI 03/08/24. X-rays updated. Patient reports that she continues to have pain and discomfort however she has had improvement since her last visit. Allergies meperidine [Demerol] Allergy (Unknown, Verified 03/17/24 08:11) Nausea and Vomiting oxycodone Allergy (Unknown, Verified 03/17/24 08:11) Nausea and Vomiting Sulfa (Sulfonamide Antibiotics) [SULFA (SULFONAMIDE ANTIBIOTICS)] Allergy (Unknown, Verified 03/17/24 08:11) NAUSEA & VOMITING, GI upset Penicillins [PENICILLINS] Allergy (Verified 03/26/24 18:41) rash shellfish derived Allergy (Verified 03/26/24 18:41) Anaphylaxis warfarin [WARFARIN] Adverse Reaction (Severe, Verified 03/17/24 08:11) UNKNOWN aspirin [ASPIRIN] Adverse Reaction (Mild, Verified 03/17/24 08:11) gi bleed enoxaparin [From LOVENOX] Adverse Reaction (Unknown, Verified 03/17/24 08:11) INTERNAL BLEEDING heparin [HEPARIN] Adverse Reaction (Unknown, Verified 03/17/24 08:11) INTERNAL BLEEDING ibuprofen Adverse Reaction (Unknown, Verified 03/17/24 08:11) GI bleed MAGNOLIA Inhibitors Adverse Reaction (Verified 03/26/24 18:42) Angioedema Chocolate Adverse Reaction (Verified 03/17/24 08:11) Diarrhea Medication List - Last Reconciled 04/13/24 by Caterina Gill PA-C acetaminophen 1,000 mg PO Q6H PRN acetaminophen-codeine 300-30 mg 1 tab PO Q8H PRN 7 weeks [Adult facial/body wipes As directed NS] [adult pull-ups (medium) As directed NS] albuterol sulfate 2.5 mg (3 mL) inhalation Q6H PRN 30 days allopurinol 100 mg PO DAILY alprazolam 0.25 mg PO DAILY amiodarone 400 mg (2 x 200 mg) PO BID amiodarone 200 mg PO DAILY apixaban (Eliquis) 5 mg PO BID blood-glucose meter (FreeStyle Lite Meter kit) Check blood sugar once a day as directed diphenhydramine HCl 25 mg PO BEDTIME docusate sodium (Stool Softener) 200 mg PO DAILY PRN doxycycline monohydrate 100 mg PO BID duloxetine 30 mg PO BID epinephrine (EpiPen) 0.3 mg (0.3 mL) IM ONCE PRN fluticasone furoate 100 mcg/actuation (Arnuity Ellipta) 1 inh inhalation DAILY 30 days fluticasone propionate 50 mcg/actuation 2 sprays intranasal DAILY furosemide 40 mg PO QAM gabapentin (Neurontin) 100 mg PO BID guaifenesin ER (Mucinex) 600 mg PO BID [Head & foot electric bed with half side rails head and foot electric bed with 2 half side rails NS] ipratropium-albuterol 0.5 mg-3 mg(2.5 mg base)/3 mL 3 mL inhalation Q6H PRN 30 days lidocaine 4% (Lidocaine Pain Relief) 1 patch See Protocol transdermal DAILY loratadine 10 mg PO DAILY losartan 50 mg PO DAILY metoprolol succinate ER 75 mg See Protocol PO DAILY montelukast 10 mg PO BEDTIME nebulizers As directed pantoprazole 40 mg PO DAILY@0630 potassium chloride ER 20 mEq PO DAILY [Re-usable/washable adult pads As directed NS] rosuvastatin 20 mg PO BEDTIME Serevent Diskus (salmeterol) 1 inh inhalation BID 30 days NS sitagliptin phos-metformin 50-500 mg 1 tab PO BID 90 days Ventolin HFA 90 mcg/actuation (albuterol sulfate) 2 puffs inhalation Q4-6H PRN NS HPI HPI OV-Rt humerual shaft fx w xrays DOI 03/08/24: Details: 84-year-old right hand dominant female who returns to the office today for a follow-up of right humerus fracture, 03/08/24. She states she has improvement however she continues to have pain and discomfort in her arm. She has no other concerns today. She is currently in a rehab as she was admitted to the hospital recently for diverticulitis. 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) GERD (gastroesophageal reflux disease) Deep vein thrombosis (DVT) of left lower extremity Gout Anxiety disorder Type 2 diabetes mellitus without complication, without long-term current use of insulin Hyperlipidemia Hypertension Surgical History H/O: hysterectomy History of gastric surgery Hx of hand surgery H/O local excision of skin lesion Family History Mother Mental health disorder Sister CVA (cerebral vascular accident) Daughter Brain tumor Diabetes Bipolar 1 disorder Heart abnormality Mental illness in member of household Mental health disorder Father Substance use disorder Son Mental health disorder Social History Household Members: Family Housing: House Do you presently have visiting nurse or other home services: No Alcohol intake: former Patient Tobacco Use Status: Former Tobacco user Years Smoked: 10 yrs e-Cigarette/Vaping Use: Never Used Second Hand Smoke Exposure: No Advance Directives Date on File: 07/27/21 service: No Current occupational status: retired Cognitive needs: No Hearing needs: No Vision needs: Yes Review of Systems Const All systems reviewed & are unremarkable except as noted in HPI and below Physical Exam Const General: cooperative and no acute distress Orientation/consciousness: patient oriented x3 Resp Effort & Inspection: normal respiratory effort and able to speak in complete sentences Cardio Peripheral pulses: Peripheral pulses 2+ throughout Neuro General: patient oriented x3 Extrem Other: Right shoulder normal to inspection. Minimal discomfort over fracture site. Improved ecchymosis and swelling throughout the arm into the forearm. She does have good sensation throughout the forearm into the wrist and hand. Radial ulnar and medial nerve sensory and motor function intact. Results Reviewed Results Reviewed: X-rays of the right shoulder and humerus obtained in the office today and reviewed by me show severe glenohumeral joint arthritis. Right humerus shows a displaced spiral fracture through the humeral shaft. No evidence of olecranon fracture. Assessment & Plan Assessment & Plan (1) Fracture of humeral shaft, right, closed: Code(s): S42.301A - Unspecified fracture of shaft of humerus, right arm, initial encounter for closed fracture Category: Medical Qualifiers: Encounter type: subsequent encounter Fracture morphology: other fracture Fracture healing: with routine healing Qualified Code(s): S42.391D - Other fracture of shaft of right humerus, subsequent encounter for fracture with routine healing Plan She was placed in a thermal molded brace to help with reduction and support. She will avoid any type of lifting or weight bearing on the RUE and he will work on very gentle ROM of elbow. No supination or pronation against resistance. She will work on wrist and hand ROM and pilot captain strength. I would like to see her back in 4 weeks with x-rays, sooner if needed. Orders: Orders XR humerus RT Today S42.301A - Unspecified fracture of shaft of humerus, right arm, initial encounter for closed fracture Patient Instructions: Scribed for Caterina Gill PA-C, by Sohan Feliciano medical record librarians teacher, on 04/13/2024 at 11:30 AM EST.? I, Caterina Gill PA-C, have personally reviewed and agree with the information entered by the scribe. Coding Level of Care Code Global (60506) Diagnoses Other closed fracture of shaft of right humerus with routine healing, subsequent encounter S42.391D Encounter type: subsequent encounter Fracture morphology: other fracture Fracture healing: with routine healing
== END 2024-04-13 13:00 | disposition home or self-care (01) ==
PROVIDERS: PCP Internal Medicine; Visit Provider Physician Assistant
DX: S42.391D Other fracture of shaft of right humerus, subsequent encounter for fracture with routine healing (principal)
CPT/HCPCS: 99024

== ENCOUNTER 2024-05-05 11:20 | Emergency (ER) | payer MEDICARE, MEDICAID, SELFPAY ==
[2024-05-05] VITALS (8 sets, daily range): BP systolic 98–124; BP diastolic 45–70; PULSE 71–84; RESP 16–20; TEMP 36.7–37; O2SAT 84–97; BMI 33.1
--- NOTE | ~2024-05-05 | XR_ITS ---
CLINICAL HISTORY: hypoxia 1 view chest x-ray Comparison: 03/25/2024 Findings: The lungs are clear. Heart size is normal. No acute fracture. IMPRESSION: 1. No acute findings. This document has been electronically signed by: Buddy Limon MD on 05/05/2024 11:51:18
--- NOTE | ~2024-05-05 | CT_ITS ---
CLINICAL HISTORY: abd pain CT abdomen and pelvis with contrast Comparison: CT/REG/SR - CT ABDOMEN PELVIS WO IV CON - 06/27/23 02:22 EST Findings: No consolidation at the lung bases. The gallbladder is distended, measuring 4.5 cm in transverse dimension. No definitive gallstones visible on CT; 3 mm calcifications near neck of the gallbladder are favored to be vascular calcifications, unchanged (series 6, image 30). No gallbladder wall thickening or pericholecystic fluid. Mild protrusion of the anterior right aspect of the bladder towards the inguinal canal. Atrophic spleen, measuring 7.1 cm in length. Bilateral renal cysts and subcentimeter low attenuating lesions which are too small to characterize. There are also subcentimeter low attenuating lesions in the liver which are too small to characterize. Status post hysterectomy The other solid organs are unremarkable. Small hiatal hernia. No dilation of the small bowel and colon. Air adjacent to wall of the colon is favored over pneumatosis, most prominent in the ascending colon. No definitive wall thickening of the colon. A normal appendix is identified. Colonic diverticulosis. The rectum is distended with stool, measuring 6.8 x 7.3 cm. There is mild wall thickening. There is presacral edema. No aneurysm. Severe calcified atherosclerotic disease. No lymphadenopathy. No ascites. No acute osseous abnormality. Severe height loss of T11, unchanged. Impression: Distention of the rectum with stool may indicate fecal impaction. There is mild wall thickening of the rectum and presacral edema. Stercoral colitis could be considered. Air adjacent to wall of the colon is favored over pneumatosis. Consider follow up CT if symptoms persist or worsen. This document has been electronically signed by: Kristal Todd MD on 05/05/2024 14:06:14
--- NOTE | 2024-05-05 11:31 | ECG_ITS ---
Test Reason : ABD PAIN Blood Pressure : */* mmHG Vent. Rate : 76 BPM Atrial Rate : 76 BPM P-R Int : 140 ms QRS Dur : 136 ms QT Int : 450 ms P-R-T Axes : 25 -18 -29 degrees QTcB Int : 506 ms Normal sinus rhythm Right bundle branch block Abnormal ECG When compared with ECG of 23-Mar-2024 10:41, T wave inversion less evident in Anterior leads Referred By: Anaid Ellington Electronically Signed By: LIZZ LESLIE
[2024-05-05 12:02] LABS: MANUAL DIFF FLAG NO
[2024-05-05 12:03] LABS: Basophils Absolute Auto 0.1 X10*3/uL (0.0-0.2); Basophils Percent Auto 0.4 % (0-2); Eosinophils Absolute Auto 0.2 X10*3/uL (0.0-0.4); Eosinophils Percent Auto 1.1 % (0-4); Hematocrit 33.2 % (37.0-47.0); Hemoglobin 10.9 g/dl (12.0-16.0); Imm Gran Abs Auto 0.08 X10*3/uL (0.00-0.03); Imm Gran Pct Auto 0.5 % (0.0-0.4); Lymphocytes Percent Auto 13.4 % (20-40); Mean Corpuscular HGB Conc 32.8 g/dl (31.0-35.0); Mean Corpuscular Volume 82.2 fL (80.0-98.0); Mean Platelet Volume 9.6 fL (9.4-12.3); Monocytes Absolute Auto 0.8 X10*3/uL (0.1-1.2); Monocytes Percent Auto 5.7 % (2-11); Neutrophils Absolute Auto 11.6 x10*3/uL (2.0-8.3); Neutrophils Percent Auto 78.9 % (45-73); Platelet Count 424 X10*3/uL (160-400); Red Blood Count 4.04 X10*6/uL (4.20-5.50); Red Cell Distribution Width 16.9 % (11.0-16.0); White Blood Count 14.7 X10*3/uL (4.8-10.8)
[2024-05-05 12:12] LABS: INTERNATIONAL NORM RATIO 2.3 (0.9-1.1); Prothrombin Time 26.6 SEC (10.9-12.4)
[2024-05-05 12:19] LABS: Lactic Acid 1.8 mmol/L (0.5-2.0)
--- NOTE | 2024-05-05 12:19 | PC.NURSE ---
pt is alert and oriented, skin pwd, respirations even and unlabored, pt reports that she was just recently d/c from rehab, pt reports not having a bowel movement in about a week, attempted to take a laxative yesterday but no improvement, pt reports abd/rectal pain 8/10, bowel sounds hyperactive in all 4 quadrants/abd soft and non-tender
[2024-05-05 12:37] LABS: Alanine Aminotransferase 12 U/L (0-31); Albumin Level 3.2 g/dL (3.5-5.0); Alkaline Phosphatase 106 U/L (39-117); Anion Gap 16 (12-20); Aspartate Amino Transferase 36 U/L (5-31); Bilirubin Total 0.4 mg/dL (0.0-1.0); Blood Urea Nitrogen 14 mg/dL (9-16); Calcium 8.6 mg/dL (8.4-10.2); Carbon Dioxide 26 mmol/L (22-29); Chloride 99 mmol/L (96-108); Creatinine Clr Calc Pharmacy 36.6; Estimated Glomerular Filt Rate > 60; Glucose Random 130 mg/dL (60-115); Lipase 20 U/L (8-78); Magnesium 1.1 mg/dL (1.6-2.6); Potassium 3.2 mmol/L (3.3-5.1); Sodium 138 mmol/L (135-145); Total Protein 7.7 g/dL (6.5-8.0)
[2024-05-05 12:44] LABS: B Type Natriuretic Peptide 160 pg/mL (<100)
[2024-05-05] MEDS: Magnesium Sulfate/H2O 2 GM/50 ML PIGGYBACK IV (13:16)
--- NOTE | 2024-05-05 13:23 | ED.GENADULT ---
HPI - General Adult General Chief complaint: Abdominal Pain Stated complaint: ABD & RECTAL PAIN,RECENT LLE/RUE FX PER EM PER EMS Time Seen by Provider: 05/05/24 11:26 Source: patient Mode of arrival: ambulatory Limitations: no limitations History of Present Illness ED Provider: HOOD Ellington HPI narrative: This is an 84-year-old female presenting with over a week of abdominal discomfort diffuse in nature with rectal discomfort she reports that she is ?leaking?. She tells me that she feels discomfort in her rectum but she is having loose stools intermittently. She reports she has a history of diverticulitis and it feels like her typical flare. She denies any blood in her stool. She denies nausea, vomiting, headache, vision changes, dizziness, chest pain, shortness of breath, fevers and chills. Related Data Home Medications ?Medication ?Instructions ?Recorded ?Confirmed metoprolol succinate 50 mg 75 mg PO DAILY 04/09/22 04/13/24 tablet,extended release 24 hr duloxetine 30 mg capsule,delayed 30 mg PO BID 12/27/23 04/13/24 release acetaminophen 500 mg tablet 1,000 mg PO Q6H PRN Pain 03/17/24 04/13/24 diphenhydramine HCl 25 mg tablet 25 mg PO BEDTIME 03/17/24 04/13/24 docusate sodium 100 mg capsule 200 mg PO DAILY PRN Constipation 03/17/24 04/13/24 (Stool Softener) fluticasone propionate 50 2 spray intranasal DAILY 03/17/24 04/13/24 mcg/actuation nasal spray,suspension gabapentin 100 mg capsule 100 mg PO BID 03/17/24 04/13/24 (Neurontin) loratadine 10 mg tablet 10 mg PO DAILY 03/17/24 04/13/24 pantoprazole 40 mg tablet,delayed 40 mg PO DAILY@0630 03/17/24 04/13/24 release potassium chloride 20 mEq 20 meq PO DAILY 04/13/24 04/13/24 tablet,extended release Previous Rx's ?Medication ?Instructions ?Recorded blood-glucose meter (FreeStyle #1 ea 04/09/20 Lite Meter kit) Ventolin HFA 90 mcg/actuation 2 puff inhalation Q4-6H PRN for 10/08/22 aerosol inhaler (albuterol sulfate) wheezing #18 grams Serevent Diskus 50 mcg/dose powder 1 inh inhalation BID ASTHMA/COPD 05/30/23 for inhalation (salmeterol) 30 days #120 ea nebulizers #1 ea 06/16/23 albuterol sulfate 2.5 mg/3 mL 2.5 mg (3 mL) inhalation Q6H PRN 06/23/23 (0.083 %) solution for nebulization shortness of breath or wheezing 30 days #180 mL sitagliptin phosphate 50 1 tab PO BID 90 days #180 tabs 10/16/23 mg-metformin 500 mg tablet fluticasone furoate 100 1 inh inhalation DAILY ASTHMA/COPD 10/18/23 mcg/actuation blister powder for 30 days #30 ea inhalation (Arnuity Ellipta) epinephrine 0.3 mg/0.3 mL 0.3 mg (0.3 mL) IM ONCE PRN 12/28/23 injection, auto-injector (EpiPen) anaphylaxis #1 ea ipratropium 0.5 mg-albuterol 3 mg 3 ml inhalation Q6H PRN 01/05/24 (2.5 mg base)/3 mL nebulization wheezing/SOB 30 days #180 mL soln allopurinol 100 mg tablet 100 mg PO DAILY #90 tabs 01/17/24 losartan 50 mg tablet 50 mg PO DAILY #90 tabs 01/17/24 montelukast 10 mg tablet 10 mg PO BEDTIME for allergic 02/20/24 rhinitis #90 tabs rosuvastatin 20 mg tablet 20 mg PO BEDTIME #90 tabs 02/21/24 Adult facial/body wipes #4 ea 03/15/24 Re-usable/washable adult pads #4 ea 03/15/24 adult pull-ups (medium) #120 ea 03/15/24 acetaminophen 300 mg-codeine 30 mg 1 tab PO Q8H PRN pain 7 weeks #30 03/27/24 tablet tabs amiodarone 200 mg tablet 200 mg PO DAILY #90 tabs 03/27/24 amiodarone 200 mg tablet 400 mg (2 x 200 mg) PO BID #36 tabs 03/27/24 apixaban 5 mg tablet (Eliquis) 5 mg PO BID #60 tabs 03/27/24 doxycycline monohydrate 100 mg 100 mg PO BID #10 caps 12/03/24 capsule furosemide 40 mg tablet 40 mg PO QAM #90 tabs 03/27/24 guaifenesin 600 mg tablet, 600 mg PO BID #20 tabs 03/27/24 extended release 12 hr (Mucinex) lidocaine 4 % topical patch 1 patch transdermal DAILY #20 ea 03/27/24 (Lidocaine Pain Relief) bedside commode (commode) #1 ea 04/23/24 wheelchair with foot rest #1 ea 04/30/24 alprazolam 0.25 mg tablet 0.25 mg PO DAILY anxiety #20 tabs 05/03/24 Head & foot electric bed with half #1 ea 05/04/24 side rails docusate sodium 100 mg capsule 100 mg PO BID #20 caps 05/05/24 (Colace) polyethylene glycol 3350 17 17 g PO BID PRN constipation #238 05/05/24 gram/dose oral powder (Miralax) grams sennosides 8.6 mg tablet (senna) 8.6 mg PO BEDTIME #14 tabs 05/05/24 Allergies Allergy/AdvReac Type Severity Reaction Status Date / Time meperidine [Demerol] Allergy Unknown Nausea and Verified 05/05/24 11:38 Vomiting oxycodone Allergy Unknown Nausea and Verified 05/05/24 11:38 Vomiting Sulfa (Sulfonamide Allergy Unknown NAUSEA & Verified 05/05/24 11:38 Antibiotics) VOMITING, [SULFA (SULFONAMIDE GI upset ANTIBIOTICS)] morphine Allergy Hallucinati Verified 05/05/24 16:02 ons Penicillins [PENICILLINS] Allergy rash Verified 05/05/24 11:38 shellfish derived Allergy Anaphylaxis Verified 05/05/24 11:38 warfarin [WARFARIN] AdvReac Severe UNKNOWN Verified 05/05/24 11:38 aspirin [ASPIRIN] AdvReac Mild gi bleed Verified 05/05/24 11:38 enoxaparin [From LOVENOX] AdvReac Unknown INTERNAL Verified 05/05/24 11:38 BLEEDING heparin [HEPARIN] AdvReac Unknown INTERNAL Verified 05/05/24 11:38 BLEEDING ibuprofen AdvReac Unknown GI bleed Verified 05/05/24 11:38 MAGNOLIA Inhibitors AdvReac Angioedema Verified 05/05/24 11:38 Chocolate AdvReac Diarrhea Verified 05/05/24 11:38 Review of Systems Review of Systems: Yes all other systems are reviewed and are negative PMFSH Past Medical History Attestation statement: The following information was validated with the patient. 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) GERD (gastroesophageal reflux disease) Deep vein thrombosis (DVT) of left lower extremity Gout Anxiety disorder Type 2 diabetes mellitus without complication, without long-term current use of insulin Hyperlipidemia Hypertension Surgical History H/O: hysterectomy History of gastric surgery Hx of hand surgery H/O local excision of skin lesion Family History Family History Mother Mental health disorder Sister CVA (cerebral vascular accident) Daughter Brain tumor Diabetes Bipolar 1 disorder Heart abnormality Mental illness in member of household Mental health disorder Father Substance use disorder Son Mental health disorder Social History Social History Household Members: Family Housing: House Do you presently have visiting nurse or other home services: No Alcohol intake: former Patient Tobacco Use Status: Former Tobacco user Years Smoked: 10 yrs Smoked in Last 30 Days: No e-Cigarette/Vaping Use: Never Used Second Hand Smoke Exposure: No Use of substances other than those prescribed or required for medical reasons: No Advance Directives: Yes Advance Directives on File: Yes Advance Directives Date on File: 07/27/21 Do you have a plan to hurt others: No Plan service: No Current occupational status: retired Cognitive needs: No Hearing needs: No Vision needs: Yes Physical Exam ED Vital Signs: Vital Signs - 24 hr 05/05/24 11:35 05/05/24 12:04 05/05/24 13:17 Temperature 98.0 F 98.3 F Pulse Rate 73 74 Respiratory Rate 18 20 Blood Pressure 124/49 L 115/51 L Pulse Oximetry 97 95 95 Oxygen Delivery Method Room Air Room Air Room Air 05/05/24 15:18 Temperature 98.6 F Pulse Rate 76 Respiratory Rate 20 Blood Pressure 110/48 L Pulse Oximetry 95 Oxygen Delivery Method Room Air BMI result Body Mass Index 33.1 vss Appearance: Alert.? Oriented X3.? No acute distress.? Head: Normocephalic, atraumatic, no step-offs or deformities Eyes: Pupils equal, round and reactive to light.? Neck: Normal inspection.? Neck supple.? CVS: Normal heart rate and rhythm.? Pulses normal.? Respiratory: No respiratory distress.? Breath sounds normal.? Abdomen: Soft and dissuse abd tenderness. Skin: Skin warm and dry.? Normal skin color.? Normal skin turgor.? Extremities: No lower extremity edema.? No calf ttp. 5/5 strength to bilateral upper and lower extremities Neuro: Oriented X 3.? No motor deficit.? No sensory deficit. CN 2-12 intact Course Reevaluation(s) Reevaluation #1: Patient with leukocytosis, this appears to be around her baseline. She is also noted to have a normocytic anemia. Chemistry with potassium of 3.2 oral potassium ordered. Magnesium 1.1, IV Mag ordered. UA pending. CT abdomen pelvis with this distention of the rectum with stool may indicate fecal impaction. There is mild wall thickening of the rectum and presacral edema. Steralcoral colitits could be considered. Air adjacent to the wall of the colon is favored over pneumatosis. Soap suds enema Time: 14:09 Reevaluation #2: Repeat potassium and magnesium ordered. Patient is still has not gotten a soapsuds enema. I suspect her pain is coming from significant constipation. Will wait for her to have a bowel movement. Sign out to Yodit MORATAYA Time: 16:12 Medications Administered Discontinued Medications Generic Name Dose Route Start Last Admin Trade Name Freq PRN Reason Stop Dose Admin Ceftriaxone Sodium 1 gm 05/05/24 13:23 05/05/24 14:26 Ceftriaxone Sodium 1 Gm Vial IVPUSH 05/05/24 13:24 1 gm ONCE ONE Administration Magnesium Sulfate 2 gm in 50 mls @ 25 mls/hr 05/05/24 12:56 05/05/24 14:31 Magnesium Sulfate/H2o IV 05/05/24 14:55 Infused ONCE ONE Infusion Iohexol 100 ml 05/05/24 13:32 05/05/24 13:32 Iohexol 350 Mg/Ml 100 Ml Infus..Btl IV 05/05/24 13:33 85 ml ONCE ONE Administration Potassium Chloride 20 meq 05/05/24 14:06 05/05/24 14:26 Potassium Chloride Packet 20 Meq Packet PO 05/05/24 14:07 20 meq ONCE ONE Administration Medical Decision Making Medical Decision Making MDM Narrative: 84 year old female presents w/ abd pain and rectal pain last bm two weeks ago, but reports shes dripping . PE diffuse abd discomfort throughout Concerns for constipation versus diverticulitis versus UTI. Will rule out metabolic derangements. No signs of systemic illness. Plan- labs, urine, ct abd Differential Diagnosis Differential Diagnoses: The differential diagnosis associated with the presentation includes (Concerns for constipation versus diverticulitis versus UTI. Will rule out metabolic derangements. No signs of systemic illness.) Admission/Observation Consideration of admission/observation: Escalation of care including admission/observation considered (possible ) Lab Data [facility] Lab Attestation statement: I reviewed the patient's lab results. 05/05/24 11:56 05/05/24 11:56 Labs: Lab Results 05/05/24 05/05/24 05/05/24 Range/Units 11:55 11:56 14:26 WBC 14.7 H (4.8-10.8) X10*3/uL RBC 4.04 L D (4.20-5.50) X10*6/uL Hgb 10.9 L (12.0-16.0) g/dl Hct 33.2 L D (37.0-47.0) % MCV 82.2 (80.0-98.0) fL MCH 27.0 (27.0-33.0) pg MCHC 32.8 (31.0-35.0) g/dl RDW 16.9 H (11.0-16.0) % Plt Count 424 H (160-400) X10*3/uL MPV 9.6 (9.4-12.3) fL Immature Gran % (Auto) 0.5 H (0.0-0.4) % Neut % (Auto) 78.9 H (45-73) % Lymph % (Auto) 13.4 L (20-40) % [place] % (Auto) 5.7 (2-11) % Eos % (Auto) 1.1 (0-4) % Baso % (Auto) 0.4 (0-2) % Lymph # (Auto) 2.0 (1.2-4.9) X10*3/uL [place] # (Auto) 0.8 (0.1-1.2) X10*3/uL Eos # (Auto) 0.2 (0.0-0.4) X10*3/uL Baso # (Auto) 0.1 (0.0-0.2) X10*3/uL Abs Immat Gran (auto) 0.08 H (0.00-0.03) X10*3/uL Absolute Neuts (auto) 11.6 H (2.0-8.3) x10*3/uL Absolute Nucleated RBC 0.000 (0.0-0.012) X10*3/uL Nucleated RBC % (auto) 0.0 (0.0-0.2) /100WBC PT 26.6 H D (10.9-12.4) SEC INR 2.3 H (0.9-1.1) Sodium 138 (135-145) mmol/L Potassium 3.2 L (3.3-5.1) mmol/L Chloride 99 (96-108) mmol/L Carbon Dioxide 26 (22-29) mmol/L Anion Gap 16 (12-20) BUN 14 (9-16) mg/dL Creatinine 0.85 (0.5-1.4) mg/dL Estim Creat Clear Calc 36.6 Estimated GFR > 60 Random Glucose 130 H (60-115) mg/dL Lactic Acid 1.8 (0.5-2.0) mmol/L Calcium 8.6 (8.4-10.2) mg/dL Magnesium 1.1 L* (1.6-2.6) mg/dL Total Bilirubin 0.4 (0.0-1.0) mg/dL AST 36 H (5-31) U/L ALT 12 (0-31) U/L Alkaline Phosphatase 106 (39-117) U/L Troponin I High Sens 4.0 (<3.5-17.0) ng/L B-Natriuretic Peptide 160 H (<100) pg/mL Total Protein 7.7 (6.5-8.0) g/dL Albumin 3.2 L (3.5-5.0) g/dL Lipase 20 (8-78) U/L Urine Color Yellow Urine Appearance Clear Urine pH 5.5 (5.0-9.0) Ur Specific Wheeler >= 1.030 H (1.005-1.025) Urine Protein 30 (1+) H (Neg-Trace) mg/dL Urine Glucose (UA) Negative (Negative) mg/dL Urine Ketones Negative (Negative) mg/dL Urine Blood Trace H (Negative) Urine Nitrite Negative (Negative) Ur Leukocyte Esterase Negative (Negative) Urine RBC 0-2 (0-2) /HPF Urine WBC 0-5 (0-5) /HPF Ur Squamous Epith Cells 3-5 (0-2) /HPF Urine Bacteria None Seen (None Seen) Hyaline Casts 3-5 (0-2) /LPF Granular Casts Present Independent Interpretation I performed an independent interpretation of an: CT Scan Radiology Impression Discussion of test interpretation with radiology: I have reviewed the radiologist's reading. External Record Review External record reviewed: Inpatient record, Office record, Outpatient record, Prior outpatient labs, Prior outpatient radiology, Primary care record and Outside ED record Chronic Conditions Patient?s care impacted by: Other (see hpi ) Critical Care Time Critical Care Time Critical Care Time: No Discharge Plan Discharge Clinical Impression: Constipation, Abdominal pain Patient Disposition: Home, Self-Care Instructions: Constipation (ED), Abdominal Pain (ED) Additional Instructions: Take your medications as prescribed. If you were prescribed antibiotics today, it is important that you take your medication to their entirety, do not skip any doses, do not finish them early. Follow-up with your primary care provider this week. Return to the emergency department with new or worsening symptoms. Such as fevers, chills, chest pain, shortness of breath, nausea, vomiting, dizziness, headache, vision changes, lethargy In case of emergency call 911 Prescriptions: New sennosides [senna] 8.6 mg tablet 8.6 mg PO BEDTIME Qty: 14 0RF docusate sodium [Colace] 100 mg capsule 100 mg PO BID Qty: 20 0RF polyethylene glycol 3350 [Miralax] 17 gram/dose powder 17 g PO BID PRN (Reason: constipation) Qty: 238 0RF No Action (DME) blood-glucose meter [FreeStyle Lite Meter] Kit See Rx Instructions .ROUTE .MEDSUPPLY Qty: 1 0RF Rx Instructions: Check blood sugar once a day as directed albuterol sulfate [Ventolin HFA] 90 mcg/actuation HFA aerosol inhaler 2 puff inhalation Q4-6H PRN (Reason: for wheezing) Qty: 18 0RF Serevent Diskus 50 mcg/dose blister with device 1 inh inhalation BID 30 Days Qty: 120 5RF (DME) nebulizers Misc See Rx Instructions .Route Qty: 1 0RF Rx Instructions: As directed albuterol sulfate 2.5 mg /3 mL (0.083 %) solution for nebulization 2.5 mg inhalation Q6H PRN (Reason: shortness of breath or wheezing) 30 Days Qty: 180 5RF sitagliptin phos-metformin 50-500 mg tablet 1 tab PO BID 90 Days Qty: 180 1RF Arnuity Ellipta 100 mcg/actuation blister with device 1 inh inhalation DAILY 30 Days Qty: 30 5RF epinephrine [EpiPen] 0.3 mg/0.3 mL auto-injector 0.3 mg IM ONCE PRN (Reason: anaphylaxis) Qty: 1 0RF Rx Instructions: do not exceed 12 doses per 24 hrs losartan 50 mg tablet 50 mg PO DAILY Qty: 90 1RF allopurinol 100 mg tablet 100 mg PO DAILY Qty: 90 1RF montelukast 10 mg tablet 10 mg PO BEDTIME Qty: 90 3RF rosuvastatin 20 mg tablet 20 mg PO BEDTIME Qty: 90 1RF (DME) Re-usable/washable adult pads See Rx Instructions .Route .MEDSUPPLY Qty: 4 6RF Rx Instructions: As directed (DME) Adult facial/body wipes See Rx Instructions .Route .MEDSUPPLY Qty: 4 11RF Rx Instructions: As directed (DME) adult pull-ups (medium) See Rx Instructions .Route .MEDSUPPLY Qty: 120 11RF Rx Instructions: As directed (DME) bedside commode Kit See Rx Instructions .Route Qty: 1 0RF Rx Instructions: Use As directed (DME) wheelchair with foot rest See Rx Instructions .Route .MEDSUPPLY Qty: 1 0RF Rx Instructions: As directed alprazolam 0.25 mg tablet 0.25 mg PO DAILY Qty: 20 0RF (DME) Head & foot electric bed with half side rails See Rx Instructions .Route .MEDSUPPLY Qty: 1 0RF Rx Instructions: head and foot electric bed with 2 half side rails acetaminophen 500 mg Tablet 1,000 mg PO Q6H PRN (Reason: Pain) diphenhydramine HCl 25 mg Tablet 25 mg PO BEDTIME docusate sodium [Stool Softener] 100 mg Capsule 200 mg PO DAILY PRN (Reason: Constipation) loratadine 10 mg Tablet 10 mg PO DAILY pantoprazole 40 mg tablet,delayed release (DR/EC) 40 mg PO DAILY@0630 gabapentin [Neurontin] 100 mg capsule 100 mg PO BID fluticasone propionate 50 mcg/actuation spray,suspension 2 spray intranasal DAILY Rx Instructions: administer into each nostril Eliquis 5 mg Tablet 5 mg PO BID Qty: 60 0RF lidocaine [Lidocaine Pain Relief] 4 % Adhesive Patch,Medicated 1 patch transdermal DAILY Qty: 20 0RF Protocol: Apply to: Apply to: back amiodarone 200 mg Tablet 400 mg PO BID Qty: 36 0RF guaifenesin [Mucinex] 600 mg Tablet Extended Release 12hr 600 mg PO BID Qty: 20 0RF amiodarone 200 mg tablet 200 mg PO DAILY Qty: 90 0RF Rx Instructions: start after finishing the 400 mg twice a day. doxycycline monohydrate 100 mg capsule 100 mg PO BID Qty: 10 0RF acetaminophen-codeine 300-30 mg tablet 1 tab PO Q8H PRN (Reason: pain) 49 Days Qty: 30 0RF furosemide 40 mg tablet 40 mg PO QAM Qty: 90 0RF metoprolol succinate 50 mg tablet extended release 24 hr 75 mg PO DAILY Protocol: Hold for SBP/HR < HOLD for SBP < : 90 HOLD for HR < : 60 duloxetine 30 mg capsule,delayed release(DR/EC) 30 mg PO BID ipratropium-albuterol 0.5 mg-3 mg(2.5 mg base)/3 mL solution for nebulization 3 ml inhalation Q6H PRN (Reason: wheezing/SOB) 30 Days Qty: 180 3RF potassium chloride 20 mEq tablet extended release 20 meq PO DAILY Referrals: Melissa Shannon MD [Primary Care Provider] - 2 days Print Language: Cook Islander
[2024-05-05] MEDS: iohexoL 350 MG/ML 100 ML INFUS..BTL IV (13:32)
[2024-05-05] MEDS: Potassium Chloride Packet 20 MEQ PACKET PO (14:26)
[2024-05-05] MEDS: cefTRIAXone sodium 1 GM VIAL IVPUSH (14:26)
[2024-05-05 14:43] LABS: Appearance Urine Clear; Color Urine Yellow; Glucose Urine UA Negative (Negative); Leukocyte Esterase Urine Negative (Negative); Nitrite Urine Negative (Negative); PH 5.5 (5.0-9.0); Specific Gravity - Urine >= 1.030 (1.005-1.025); UMIC TRIGGER UACC YES; Urine Blood Trace (Negative); Urine Ketones Negative (Negative); Urine Protein 30 (1+) mg/dL (Neg-Trace)
[2024-05-05 15:00] LABS: Bacteria Urine None Seen (None Seen); Granular Casts Urine Present; RBC Urine 0-2 /HPF (0-2); WBC Urine 0-5 /HPF (0-5)
--- NOTE | 2024-05-05 17:16 | PC.NURSE ---
soap suds enema performed got a medium amount of stool out, pt has been having intermittent diarrhea/smear like episodes of bowel movement while in the ed
--- NOTE | 2024-05-05 21:27 | PC.NURSE ---
this rn assumed care of pt @ 1900 pt daughter at bedside pt moved into 19h awaiting ems ride home delayed due to high acutity of ems calls pt aware pt reports abd discomfort requesting antacid while waiting for ride home this rn made bobby hernandez aware
--- NOTE | 2024-05-05 22:33 | PC.NURSE ---
upon discharge vitals taken difficulty acquiring accurate blood pressure rafa vanessa made aware bp 98/52on left FA vanessa made aware states pt safe for discharge this rn made ems aware prior to transport they expressed concern for bp stated they would need sign off from provider rafa vanessa signed documentation for patient to be discharged
== END 2024-05-05 22:38 | disposition home or self-care (01) ==
PROVIDERS: Physician Assistant; Emergency Provider Emergency Medicine; PCP Internal Medicine
DX: K59.00 Constipation, unspecified (principal); R10.9 Unspecified abdominal pain; R09.02 Hypoxemia; E83.42 Hypomagnesemia; E87.6 Hypokalemia; D72.829 Elevated white blood cell count, unspecified; I45.10 Unspecified right bundle-branch block; E11.9 Type 2 diabetes mellitus without complications; I11.0 Hypertensive heart disease with heart failure; I50.30 Unspecified diastolic (congestive) heart failure; E78.5 Hyperlipidemia, unspecified; I48.0 Paroxysmal atrial fibrillation; J44.9 Chronic obstructive pulmonary disease, unspecified; Z86.718 Personal history of other venous thrombosis and embolism; Z79.899 Other long term (current) drug therapy; Z79.02 Long term (current) use of antithrombotics/antiplatelets; Z79.01 Long term (current) use of anticoagulants
CPT/HCPCS: 36415; 71045; 74177; 80053; 81001; 83605; 83690; 83735; 83880; 84484; 85025; 85610; 87040; 93005; 96365; 99284; 99285; J0696; J3475; Q9967

== ENCOUNTER → 2024-05-05 11:31 | Outpatient (BNV) | payer MEDICARE, MEDICAID, SELFPAY | PROVIDERS: Visit Provider Specialist | DX: R10.84 Generalized abdominal pain (principal) | CPT/HCPCS: 71045 ==

== ENCOUNTER → 2024-05-05 11:31 | Outpatient (BNV) | payer MEDICARE, MEDICAID, SELFPAY | PROVIDERS: Emergency Provider Emergency Medicine; PCP Internal Medicine; Visit Provider Internal Medicine | DX: I45.10 Unspecified right bundle-branch block (principal) | CPT/HCPCS: 93010 ==

== ENCOUNTER 2024-05-11 10:09 | Outpatient (AMB) | payer MEDICARE, MEDICAID, SELFPAY ==
--- NOTE | 2024-05-11 09:59 | A.OFFPC_ITS ---
Intake Visit Reasons: general health, med supplies Intake Note: Pt is having a telethealth to request orders for med supplies [phone] Allergies meperidine [Demerol] Allergy (Unknown, Verified 05/11/24 10:35) Nausea and Vomiting oxycodone Allergy (Unknown, Verified 05/11/24 10:35) Nausea and Vomiting Sulfa (Sulfonamide Antibiotics) [SULFA (SULFONAMIDE ANTIBIOTICS)] Allergy (Unknown, Verified 05/11/24 10:35) NAUSEA & VOMITING, GI upset morphine Allergy (Verified 05/11/24 10:35) Hallucinations Penicillins [PENICILLINS] Allergy (Verified 05/11/24 10:35) rash shellfish derived Allergy (Verified 05/11/24 10:35) Anaphylaxis warfarin [WARFARIN] Adverse Reaction (Severe, Verified 05/11/24 10:35) UNKNOWN aspirin [ASPIRIN] Adverse Reaction (Mild, Verified 05/11/24 10:35) gi bleed enoxaparin [From LOVENOX] Adverse Reaction (Unknown, Verified 05/11/24 10:35) INTERNAL BLEEDING heparin [HEPARIN] Adverse Reaction (Unknown, Verified 05/11/24 10:35) INTERNAL BLEEDING ibuprofen Adverse Reaction (Unknown, Verified 05/11/24 10:35) GI bleed MAGNOLIA Inhibitors Adverse Reaction (Verified 05/11/24 10:35) Angioedema Chocolate Adverse Reaction (Verified 05/11/24 10:35) Diarrhea Medication List - Last Reconciled 05/11/24 by Melissa Shannon MD acetaminophen 1,000 mg PO Q6H PRN [Adult facial/body wipes As directed NS] [adult pull-ups (medium) As directed NS] albuterol sulfate 2.5 mg (3 mL) inhalation Q6H PRN 30 days allopurinol 100 mg PO DAILY alprazolam 0.25 mg PO DAILY amiodarone 200 mg PO DAILY apixaban (Eliquis) 5 mg PO BID bedside commode (commode) Use As directed NS blood-glucose meter (FreeStyle Lite Meter kit) Check blood sugar once a day as directed diphenhydramine HCl 25 mg PO BEDTIME docusate sodium (Colace) 100 mg PO BID duloxetine 30 mg PO BID epinephrine (EpiPen) 0.3 mg (0.3 mL) IM ONCE PRN fluticasone furoate 100 mcg/actuation (Arnuity Ellipta) 1 inh inhalation DAILY 30 days fluticasone propionate 50 mcg/actuation 2 sprays intranasal DAILY furosemide 20 mg PO DAILY gabapentin (Neurontin) 100 mg PO BID [Head & foot electric bed with half side rails head and foot electric bed with 2 half side rails NS] ipratropium-albuterol 0.5 mg-3 mg(2.5 mg base)/3 mL 3 mL inhalation Q6H PRN 30 days loratadine 10 mg PO DAILY losartan 50 mg PO DAILY metoprolol succinate ER 75 mg See Protocol PO DAILY montelukast 10 mg PO BEDTIME nebulizers As directed pantoprazole 40 mg PO DAILY@0630 polyethylene glycol 3350 (Miralax) 17 grams PO BID PRN potassium chloride ER 20 mEq PO .M,W & F [Re-usable/washable adult pads As directed NS] rosuvastatin 20 mg PO BEDTIME sennosides (senna) 8.6 mg PO BEDTIME Serevent Diskus (salmeterol) 1 inh inhalation BID 30 days NS sitagliptin phos-metformin 50-500 mg 1 tab PO BID 90 days Ventolin HFA 90 mcg/actuation (albuterol sulfate) 2 puffs inhalation Q4-6H PRN NS [wheelchair with foot rest As directed] Tobacco use date assessed: 05/11/24 Fall risk assessment: 1 Fall in past year Last assessed Fall Risk: 05/11/24 Dental Screening Dental Screen Date: 05/11/24 Did you have a dental visit in the last 12 months?: No Did you have a dental problem in the last 6 months where you did not have access to dental care?: No Was dental information given to patient?: No HPI general health, med supplies HPI Details - The patient is an 84-year-old female p resenting with issues related to congestive heart failure, newly diagnosed atrial fibrillation, recent constipation with blockage, and urinary tract infection. Sustained a right humerus fracture, 03/08/24, s/p placement in a placed in a thermal molded brace to help with reduction and support. She was told to avoid any type of lifting or weight bearing on the RUE and to work on very gentle ROM of elbow. No supination or pronation against resistance, work on wrist and hand ROM and boat tender strength. She was advised to follow-up with orthopedics 4 weeks from last visit in March. Patient's daughter states that during her rehab stay she was unable to do physical therapy due to severe pain and discomfort in her arm. She states that there is some improvement however she continues to have pain and discomfort in right arm shoulder. - Recently discharged from the hospital, later transferred to short-term rehab, after being treated for a bowel blockage with an enema, leading to frequent bowel movements. - The patient holds urine due to discomf ort with frequent diaper changes, risking exacerbation of a urinary tract infection. - Suffered significant weight loss of 18 pounds while at a intermediate, though dietary intake has improved since returning home. - Recently prescribed Amiodarone for atr ial fibrillation management and requires cardiology follow-up for this medication. Patient currently being seen at [facility] - Mobility is severely restricted, requi ring substantial assistance from family members for movement due to physical weakness and weight loss. - Requires an elevated headrest due to c ongestive heart failure and faces constraints in mobility due to the size and setup of her current bed. 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) GERD (gastroesophageal reflux disease) Deep vein thrombosis (DVT) of left lower extremity Gout Anxiety disorder Type 2 diabetes mellitus without complication, without long-term current use of insulin Hyperlipidemia Hypertension Surgical History H/O: hysterectomy History of gastric surgery Hx of hand surgery H/O local excision of skin lesion Family History Mother Mental health disorder Sister CVA (cerebral vascular accident) Daughter Brain tumor Diabetes Bipolar 1 disorder Heart abnormality Mental illness in member of household Mental health disorder Father Substance use disorder Son Mental health disorder Social History Household Members: Family Housing: House Do you presently have visiting nurse or other home services: No Alcohol intake: former Patient Tobacco Use Status: Former Tobacco user Years Smoked: 10 yrs e-Cigarette/Vaping Use: Never Used Second Hand Smoke Exposure: No Advance Directives Date on File: 07/27/21 service: No Current occupational status: retired Cognitive needs: No Hearing needs: No Vision needs: Yes Questionnaire Thrive Questionnaire Date Thrive assessed: 12/27/23 KIRA-7 AMB Questionnaire KIRA-7 Date KIRA - 7 assessed: 12/27/23 Source: Developed by Drs. Dg Louis, Joyce Saez, Gigi Gaytan and colleagues, with an educational bao from [employer]. Review of Systems Const Reports body aches, Reports fatigue, Denies fever(s), Reports lethargy, Reports poor appetite and Reports weakness Eyes Reports no additional complaints ENT Reports nasal congestion and Reports nasal discharge Card Denies chest pain, Denies irregular heart rhythm and Denies leg edema Resp Reports as per HPI GI Reports no additional complaints Reports no additional complaints Musc Reports back pain (Chronic) and Reports muscle weakness Skin/Breast Reports system reviewed and no additional complaints, except as documented Neuro Reports no additional complaints and Reports weakness Psych Reports depression (Controlled) Endo Reports fatigue Tolu/Lymph Reports no additional complaints Aller/Immun Reports seasonal rhinorrhea Physical exam (Primary Care) Tobacco/Smoking Status: Tobacco use Status Tobacco use date assessed 05/11/24 05/11/24 10:09 Patient Tobacco Use Status Former Tobacco user 05/11/24 10:09 e-Cigarette/Vaping Use Never Used 05/11/24 10:09 Thrive Assessment: Date of Thrive Assessment Date Thrive assessed 12/27/23 05/11/24 10:09 Telehealth Telehealth Telehealth Platform: [facility] Location of provider rendering services: practice address Location of patient: address on file Patient Identification confirmed using: Name, : Yes Telehealth method: video Patient verbally consented to treatment: Yes Patient verbally consented to billing insurance company: Yes Patient informed of any privacy concerns related to visit: Yes Minutes spent on Phone/Video with Pt.: 30 Results Reviewed Results Reviewed: Name: Joyce Waddell I Age/Sex: 84/F : 1940 Unit#: [id number] Attend Dr: Erin Melendrez MD Re05/05/24 Status: DEP ER Location: .ED Disch: SPEC : [id number] CHRISTEL: 05/05/24-1155 STATUS: COMP REQ : [id number] RECD: 05/05/24-[address]: Anaid Ellington COMP: 05/05/24-1237 ENTERED: 05/05/24-[address]: ORDERED: CMP, MG, Lip Test Result Flag Reference Sodium 138 135-145 mmol/L Potassium 3.2 L 3.3-5.1 mmol/L Slight Hemolysis.Interpret result with caution. CL 99 96-108 mmol/L CO2 26 22-29 mmol/L Gap 16 12-20 BUN 14 9-16 mg/dL Creat 0.85 0.5-1.4 mg/dL Estimated CrCl 36.6 Provided height and weight: 139.7 cm, 64.7 kg. eGFR (calculated from the MDRD study equation) and eCrCl (calculated from the Cockcroft-Gault equation) are based on different parameters and may not yield comparable results. If eCrCl result is absurd, please check patient's height/weight. eGFR > 60 Chronic Kidney Disease: Estimated GFR < 60 mL/min/1.73m2 Severe Kidney Disease: Estimated GFR < 15 mL/min/1.73m2 Glucose, Random 130 H 60-115 mg/dL CA 8.6 8.4-10.2 mg/dL Magnesium 1.1 *L 1.6-2.6 mg/dL Critical value for MAG: Results called to and read back by:ALEC Person calling:CLARA Date: 05-05-24 Time: 1228 Total Bili 0.4 0.0-1.0 mg/dL AST (GOT) 36 H 5-31 U/L Slight Hemolysis.Interpret result with caution. ALT (GPT) 12 0-31 U/L Protein, Total 7.7 6.5-8.0 g/dL Alb 3.2 L 3.5-5.0 g/dL Alk Phos 106 39-117 U/L Lipase 20 8-78 U/L Coding Level of Care Code Tele Est Pt Level 4 (18874) Complex EM visit Add On G2211 Diagnoses Mixed stress and urge urinary incontinence N39.46 Pure hypercholesterolemia E78.00 Hyperlipidemia type: pure hypercholesterolemia Essential hypertension I10 Hypertension type: essential hypertension Type 2 diabetes mellitus without complication, without long-term current use of insulin E11.9 Diastolic heart failure I50.30 Iron deficiency anemia, unspecified iron deficiency anemia type D50.9 Anemia type: iron deficiency Iron deficiency anemia type: unspecified iron deficiency Chronic obstructive pulmonary disease with acute exacerbation J44.1 COPD type: COPD with acute exacerbation GERD (gastroesophageal reflux disease) K21.9 Paroxysmal atrial fibrillation I48.0 Hx of fracture of humerus Z87.81 Hypomagnesemia E83.42 Hypokalemia E87.6 Assessment & Plan Assessment & Plan (1) Mixed stress and urge urinary incontinence: Code(s): N39.46 - Mixed incontinence Category: Medical Plan: Needs adult pull-ups and bedside commode (2) Hyperlipidemia: Code(s): E78.5 - Hyperlipidemia, unspecified Category: Medical Qualifiers: Hyperlipidemia type: pure hypercholesterolemia Qualified Code(s): E78.00 - Pure hypercholesterolemia, unspecified Plan: Continue rosuvastatin 20 mg daily (3) Hypertension: Code(s): I10 - Essential (primary) hypertension Category: Medical Qualifiers: Hypertension type: essential hypertension Qualified Code(s): I10 - Essential (primary) hypertension Plan: Blood pressure at goal of less than 130/80. Continue with current medication. Reinforced importance of following a low sodium diet, getting regular exercise, and lowering stress levels. (4) Type 2 diabetes mellitus without complication, without long-term current use of insulin: Code(s): E11.9 - Type 2 diabetes mellitus without complications Category: Medical Plan: Continue with Janumet (5) Diastolic heart failure: Code(s): I50.30 - Unspecified diastolic (congestive) heart failure Category: Medical Plan: Advised to schedule appointment with her wet process technician at [facility], currently on furosemide 20 mg daily, losartan 50 mg daily, metoprolol 75 mg daily (6) Anemia: Code(s): D64.9 - Anemia, unspecified Category: Medical Qualifiers: Anemia type: iron deficiency Iron deficiency anemia type: unspecified iron deficiency Qualified Code(s): D50.9 - Iron deficiency anemia, unspecified Plan: Will continue to monitor CBC (7) COPD (chronic obstructive pulmonary disease): Comment: MILD TO MODERATE CHRONIC OBSTRUCTIVE PULMONARY DISEASE. STABLE AND CONTROLLED WITH THE CURRENT MEDS. HAS SLIGHTLY INCREASED DYSPNEA BECAUSE OF HER RECENT RESPIRATORY INFECTION ( COVID-19 TESTED POSITIVE AT HOME) SHE HAS RECOVERED FROM THIS HOWEVER STILL HAS SOME RESIDUAL GENERALIZED WEAKNESS Code(s): J44.9 - Chronic obstructive pulmonary disease, unspecified Category: Medical Qualifiers: COPD type: COPD with acute exacerbation Qualified Code(s): J44.1 - Chronic obstructive pulmonary disease with (acute) exacerbation Plan: Currently on DuoNeb by nebulizer, and Arnuity Ellipta 1 inhalation once a day , currently sees Dr. Meade (8) GERD (gastroesophageal reflux disease): Code(s): K21.9 - Gastro-esophageal reflux disease without esophagitis Category: Medical Plan: Continued on pantoprazole 40 mg daily (9) Paroxysmal atrial fibrillation: Code(s): I48.0 - Paroxysmal atrial fibrillation Category: Medical Plan: Started on amiodarone during recent hospital stay, currently on metoprolol and apixaban. Advised to schedule appointment with her wet process technician at [facility] as soon as possible (10) Hx of fracture of humerus: Code(s): Z87.81 - Personal history of (healed) traumatic fracture Category: Medical Plan: [place] [facility] [place], t scheduled for follow-up this month (11) Hypomagnesemia: Code(s): E83.42 - Hypomagnesemia Category: Medical Plan: Prescription sent for magnesium oxide 400 mg daily (12) Hypokalemia: Code(s): E87.6 - Hypokalemia Category: Medical Plan: Prescription sent for potassium chloride 20 mEq taken once a day Plan Current management of the patient's multiple chronic issues includes a focus on alleviating symptoms of congestive heart failure through positional adjustments in bed, facilitated by an adjustable hospital bed. Continued monitoring of the new medication regimen for atrial fibrillation, specifically Amiodarone, is vital with wet process technician consultations. Prevention of recurring bowel obstruction through careful monitoring of bowel movements and dietary adjustments is recommended. Steps to mitigate urinary incontinence and associated infections involve behavioral approaches to voiding, coupled with more coordinated diaper management. Emphasis on nutritional assessment is warranted given the past significant weight loss, and implementing a physical therapy regimen is advisable to improve mobility. She would need a wheelchair to help with her mobility and significantly improve patient's ability to participate in her ADLs and to be used at home and when going out for doctor's appointments, as she is unable to use crutches, cane or walker due to recent right humeral fracture. She has a caregiver that can push her around in her wheelchair at home. There is a need for regular cardiology follow-ups to track treatment outcomes and medication effects, and considering personal care assistance for improved home support is also discussed. Patient was informed and verbally consented to the use of an ambient scribe for clinic note documentation during this visit.
== END 2024-05-11 15:11 | disposition home or self-care (01) ==
LOC: HO.HMCC 10:09
PROVIDERS: PCP Internal Medicine; Visit Provider Internal Medicine
DX: N39.46 Mixed incontinence (principal); E78.00 Pure hypercholesterolemia, unspecified; I10 Essential (primary) hypertension; E11.9 Type 2 diabetes mellitus without complications; I50.30 Unspecified diastolic (congestive) heart failure; D50.9 Iron deficiency anemia, unspecified; J44.1 Chronic obstructive pulmonary disease with (acute) exacerbation; K21.9 Gastro-esophageal reflux disease without esophagitis; I48.0 Paroxysmal atrial fibrillation; Z87.81 Personal history of (healed) traumatic fracture; E83.42 Hypomagnesemia; E87.6 Hypokalemia

== ENCOUNTER → 2024-05-11 10:09 | Outpatient (BNVA) | payer MEDICARE, MEDICAID, SELFPAY | PROVIDERS: PCP Internal Medicine; Visit Provider Internal Medicine ==

== ENCOUNTER 2024-05-25 10:05 | Outpatient (AMB) | payer MEDICARE, MEDICAID, SELFPAY ==
--- NOTE | 2024-05-25 10:25 | A.OFFVIS_ITS ---
Intake Visit Reasons: OV- RT hum fx, DOI 03/08/24 w/ XR Intake Note: Joyce an 84 year old right hand dominant female who presents today for a follow up of right humerus fracture, DOI 03/08/24. Patient reports she is taking Tylenol PRN with relief of pain. Allergies meperidine [Demerol] Allergy (Unknown, Verified 05/25/24 10:28) Nausea and Vomiting oxycodone Allergy (Unknown, Verified 05/25/24 10:28) Nausea and Vomiting Sulfa (Sulfonamide Antibiotics) [SULFA (SULFONAMIDE ANTIBIOTICS)] Allergy (Unknown, Verified 05/25/24 10:28) NAUSEA & VOMITING, GI upset morphine Allergy (Verified 05/25/24 10:28) Hallucinations Penicillins [PENICILLINS] Allergy (Verified 05/25/24 10:28) rash shellfish derived Allergy (Verified 05/25/24 10:28) Anaphylaxis warfarin [WARFARIN] Adverse Reaction (Severe, Verified 05/25/24 10:28) UNKNOWN aspirin [ASPIRIN] Adverse Reaction (Mild, Verified 05/25/24 10:28) gi bleed enoxaparin [From LOVENOX] Adverse Reaction (Unknown, Verified 05/25/24 10:28) INTERNAL BLEEDING heparin [HEPARIN] Adverse Reaction (Unknown, Verified 05/25/24 10:28) INTERNAL BLEEDING ibuprofen Adverse Reaction (Unknown, Verified 05/25/24 10:28) GI bleed MAGNOLIA Inhibitors Adverse Reaction (Verified 05/25/24 10:28) Angioedema Chocolate Adverse Reaction (Verified 05/25/24 10:28) Diarrhea Medication List - Last Reconciled 05/26/24 by Caterina Gill PA-C acetaminophen 1,000 mg PO Q6H PRN [Adult facial/body wipes As directed NS] [adult pull-ups (medium) As directed NS] albuterol sulfate 2.5 mg (3 mL) inhalation Q6H PRN 30 days allopurinol 100 mg PO DAILY alprazolam 0.25 mg PO DAILY amiodarone 200 mg PO DAILY apixaban (Eliquis) 5 mg PO BID bedside commode (commode) Use As directed NS blood-glucose meter (FreeStyle Lite Meter kit) Check blood sugar once a day as directed docusate sodium (Colace) 100 mg PO BID PRN duloxetine 30 mg PO BID 3 months epinephrine (EpiPen) 0.3 mg (0.3 mL) IM ONCE PRN fluticasone furoate 100 mcg/actuation (Arnuity Ellipta) 1 inh inhalation DAILY 30 days fluticasone propionate 50 mcg/actuation 2 sprays intranasal DAILY furosemide 20 mg PO DAILY gabapentin (Neurontin) 100 mg PO BID 1 month [Head & foot electric bed with half side rails head and foot electric bed with 2 half side rails NS] ipratropium-albuterol 0.5 mg-3 mg(2.5 mg base)/3 mL 3 mL inhalation Q6H PRN 30 days loratadine 10 mg PO DAILY PRN losartan 50 mg PO DAILY magnesium oxide 400 mg PO DAILY metoprolol succinate ER 75 mg See Protocol PO DAILY 3 months montelukast 10 mg PO BEDTIME nebulizers As directed pantoprazole 40 mg PO DAILY@0630 polyethylene glycol 3350 (Miralax) 17 grams PO BID PRN potassium chloride ER 20 mEq PO DAILY [Re-usable/washable adult pads As directed NS] rosuvastatin 20 mg PO BEDTIME sennosides (senna) 8.6 mg PO BEDTIME Serevent Diskus (salmeterol) 1 inh inhalation BID 30 days NS sitagliptin phos-metformin 50-500 mg 1 tab PO BID 90 days Ventolin HFA 90 mcg/actuation (albuterol sulfate) 2 puffs inhalation Q4-6H PRN NS [wheelchair with foot rest As directed] HPI HPI OV- RT hum fx, DOI 03/08/24 w/ XR: Details: 84-year-old female returns to the office today for a follow-up right humeral shaft fracture. Date of injury 03/08/2024. She also has a healing left 5th metatarsal fracture. Patient has been recovering well. She is at home now. She did not do well in rehab as she was not motivated and did not thrive on the care at the rehab facility. She wears the arm brace at all times. She does have some limitations with bringing her arm to her head and eating. Overall her pain is well managed. 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) GERD (gastroesophageal reflux disease) Deep vein thrombosis (DVT) of left lower extremity Gout Anxiety disorder Type 2 diabetes mellitus without complication, without long-term current use of insulin Hyperlipidemia Hypertension Surgical History H/O: hysterectomy History of gastric surgery Hx of hand surgery H/O local excision of skin lesion Family History Mother Mental health disorder Sister CVA (cerebral vascular accident) Daughter Brain tumor Diabetes Bipolar 1 disorder Heart abnormality Mental illness in member of household Mental health disorder Father Substance use disorder Son Mental health disorder Social History Household Members: Family Housing: House Do you presently have visiting nurse or other home services: No Alcohol intake: former Patient Tobacco Use Status: Former Tobacco user Years Smoked: 10 yrs e-Cigarette/Vaping Use: Never Used Second Hand Smoke Exposure: No Advance Directives Date on File: 07/27/21 service: No Current occupational status: retired Cognitive needs: No Hearing needs: No Vision needs: Yes Review of Systems Const All systems reviewed & are unremarkable except as noted in HPI and below Physical Exam Const General: cooperative and no acute distress Orientation/consciousness: patient oriented x3 Resp Effort & Inspection: normal respiratory effort and able to speak in complete sentences Cardio Peripheral pulses: Peripheral pulses 2+ throughout Neuro General: patient oriented x3 Extrem Other: Right shoulder normal to inspection. No significant discomfort over fracture site. No ecchymosis or swelling throughout the arm into the forearm. She does have good sensation throughout the forearm into the wrist and hand. Radial ulnar and medial nerve sensory and motor function intact. Left foot are normal to inspection she has no tenderness over the 5th metatarsal. Neurovascularly intact. Results Reviewed Results Reviewed: X-rays of the right shoulder and humerus obtained in the office today and reviewed by me show severe glenohumeral joint arthritis. Right humerus shows a displaced spiral fracture through the humeral shaft. No evidence of olecranon fracture. X-rays of the left foot obtained in the office and reviewed by me today show a healed 5th metatarsal fracture. Assessment & Plan Assessment & Plan (1) Hx of fracture of humerus: Code(s): Z87.81 - Personal history of (healed) traumatic fracture Category: Medical Plan: Overall her fracture remains stable and appears to be healing well. I had a lengthy discussion again with the patient and her family in the office today about continued nonoperative treatment giving her multiple comorbidities and the nature of the fracture healing at this time which is acceptable. I also reviewed images with Dr. Ordonez in the office today and there did not appear to be any need for surgical intervention as fracture appears to remain stable when compared to previous images. At this time the patient will wear the thermal molded brace when she is out of the house or up moving around. She can remove this for resting but she should wear it while sleeping. She should work on gentle range of motion at the shoulder joint and also the elbow joint. She should not be applying any pressure to the right upper extremity such as pushing pulling or carrying anything greater than a cell phone or coffee cup. She can not get up and ambulate as much as possible however may need to use a magdalena walker on the left side for balance. She states that she was using this in rehab and did quite well. She has therapy services coming to her house she will work on gentle range of motion of the right upper extremity with her and gait training and ADLs. She will follow up in 6-8 weeks with x-rays of the right humerus, sooner if needed. (2) Fracture of fifth metatarsal bone of left foot: Code(s): S92.352A - Displaced fracture of fifth metatarsal bone, left foot, initial encounter for closed fracture Category: Medical Qualifiers: Encounter type: initial encounter Fracture type: closed Physeal involvement: unspecified Qualified Code(s): S92.352A - Displaced fracture of fifth metatarsal bone, left foot, initial encounter for closed fracture Plan: Regular shoes as tolerated. Weightbearing as tolerated. Orders: Orders XR foot LT min 3V 05/25/24 M79.672 - Pain in left foot XR humerus RT 05/25/24 S42.301A - Unspecified fracture of shaft of humerus, right arm, initial encounter for closed fracture Coding Level of Care Code Global (78576) Diagnoses Hx of fracture of humerus Z87.81 Fracture of fifth metatarsal bone of left foot S92.352A Encounter type: initial encounter Fracture type: closed Physeal involvement: unspecified
--- OUTSIDE RECORDS SUMMARY | 2024-05-25 10:46 | XMS_ITS | Clinical Summary ---
Author Organization [address] [facility] Address [address] [place] [address] Phone Care Team Providers Care Music Director Name Role Phone Melissa Shannon MD Primary Care Provider Allergies Active Allergy Reactions Criticality Noted Date Comments Aspirin 08/12/2020 Enoxaparin 08/12/2020 Heparin 08/12/2020 Ibuprofen 08/12/2020 Iodinated Contrast Media 12/22/2022 Iv Contrast Dye Meperidine Hcl 08/12/2020 Oxycodone 08/12/2020 Oxycodone-Acetaminophen 08/12/2020 Penicillins 08/12/2020 Sulfa (Sulfonamide Antibiotics) 07/25 Warfarin 08/12/2020 Medications Medication Sig Dispensed Refills Start Date End Date Status acetaminophen (TYLENOL) 500 mg tablet Take 500 mg by mouth at bedtime. Active albuterol HFA (PROAIR HFA ; PROVENTIL HFA ; VENTOLIN HFA) 90 mcg/actuation inhaler Inhale 2 Puffs into the lungs as needed. Active allopurinoL (ZYLOPRIM) 100 mg tablet Take 1 tablet by mouth daily. Active ALPRAZolam (XANAX) 0.5 mg tablet Take 1 tablet by mouth as needed. Active budesonide (Pulmicort Flexhaler) 180 mcg/actuation inhaler Inhale 2 Puffs into the lungs 2 times daily. Active cholecalciferol (VITAMIN D-3) 25 mcg (1,000 unit) tablet Take by mouth. A ctive diphenhydrAMINE (BENADRYL) 25 mg capsule Take 1 tablet by mouth as needed. Active docusate sodium (COLACE) 100 mg capsule Take 1 tablet by mouth as needed. Active DULoxetine (CYMBALTA) [address] capsule Take 1 tablet by mouth 2 times daily. Active furosemide (LASIX) 20 mg tablet Take 1 Tablet by mouth daily. 01/18/2024 Active loratadine (CLARITIN) 10 mg tablet Take 10 mg by mouth daily. Active losartan (COZAAR) 50 mg tablet Take 50 mg by mouth daily. Active magnesium aspart,citrate,oxide (Triple Magnesium Complex) 400 mg magnesium capsule Take 1 capsule by mouth daily. Active metoprolol succinate (TOPROL-XL) 50 mg 24 hr tablet TAKE 1 AND 1/2 TABLETS BY MOUTH DAILY 01/27/2024 Active mometasone (NASONEX) 50 mcg/actuation nasal spray 1 [place] by Nasal route at bedtime. Active montelukast (SINGULAIR) 10 mg tablet Take 1 tablet by mouth daily. Active ZINC ORAL Take by mouth daily. Active pantoprazole (PROTONIX) 40 mg EC tablet Take 1 Tablet by mouth daily. Active rosuvastatin (CRESTOR) 20 mg tablet Take 20 mg by mouth daily. Active salmeteroL (Serevent Diskus) 50 mcg/dose diskus inhaler Inhale 1 Puff into the lungs 2 times daily. Active sitagliptin-metformin (Janumet) 50-500 mg per tablet Take 1 tablet by mouth 2 times daily (with meals). Active Active Problems Problem Noted Date Diagnosed Date Shortness of breath on exertion 06/30/2021 Overview (03/08/2024): Last Assessment & Plan: The patient shortness of breath is likely multifactorial in etiology including diastolic dysfunction responsive to diuretics, underlying lung disease and deconditioning. She did recently have COVID infection. Of asked her to speak with her PCP and/your partner marketing intern given her recent COVID infection as well as the fact that she has not received what sounds to be a change in nebulizer therapy. The patient tells me that her PCP just updated labs we will request these through her office. The patient's heart rate is elevated and will obtain a Holter monitor to see if brisk heart rate response is possibly driving some of her breathlessness. She is not wheezing and would remain on her beta-berenice at this time. Consideration could be given for transition to diltiazem or verapamil, though this likely would exacerbate lower extremity edema and may be bothersome to the patient. For now though, we will continue her beta-berenice. Echocardiogram has also been ordered. I will notify the patient of the results of her testing once they are available to me. Aortic aneurysm 08/12/2020 Overview (03/08/2024): Last Assessment & Plan: Will follow on upcoming echocardiogram Hyperlipidemia 08/12/2020 Overview (03/08/2024): Last Assessment & Plan: Last lipid profile from 2021 under good control without known coronary artery disease on current dose statin. Continue the same Hypertension 08/12/2020 Overview (03/08/2024): Last Assessment & Plan: Blood pressure robust in office but patient reports that she gets nervous when she is coming in to see us. Should be followed on subsequent visits. Continue beta- berenice, ARB and diuretic. Paroxysmal atrial fibrillation 08/12/2020 Overview (03/08/2024): Last Assessment & Plan: The patient is in sinus rhythm in office today by exam and EKG. Historically, she has declined anticoagulation due to significant bleeding. Update Holter monitor and follow. Encounters Date Type Department Care Team Description 04/26/[address] [facility] [address] [place] [address] Mookie Donovan MD Anemia, unspecified; Type 2 diabetes mellitus without complications ([facility]/HCC) 04/26/2024 Lab Requisition [facility] [address] [facility] [employer] [place] [address] Mookie Donovan MD Dysuria 04/16/2024 Lab Requisition [facility] [address] [place] [id number] Mookie Donovan MD Anemia, unspecified 04/09/[address] [facility] [address] [place] [address] Mookie Donovan MD Anemia, unspecified 04/06/[address] [facility] [address] [place] [address] Mookie Donovan MD Unspecified dementia, unspecified severity, without behavioral disturbance, psychotic disturbance, mood disturbance, and anxiety (CMS/HCC); Unspecified infectious disease 04/03/2024 Telephone [facility] [address] [facility] [address] [place] [address] Sandrita Cox NP 04/02/[address] [facility] [address] [place] [address] Mookie Donovan MD Anemia, unspecified 03/29/[address] [facility] [address] [place] [address] Mookie Donovan MD Unspecified atrial fibrillation (CMS/HCC); Type 2 diabetes mellitus without complications (CMS/HCC); Anemia, unspecified from Last 3 Months Family History Medical History Relation Name Comments Hypertension Father Hypertension Mother Relation Name Status Comments Father Mother Social History Tobacco Use Types Packs/Day Years Used Date Smoking Tobacco: Former Smokeless Tobacco: Never Alcohol Use Standard Drinks/Week Comments Not Currently 0 (1 standard drink = 0.6 oz pur e alcohol) Sex and Gender Information Value Date Recorded Sex Assigned at Not on file Gender Identity Not on file Sexual Orientation Not on file Obstetrics History Last Filed Vital Signs Vital Sign Reading Time Taken Comments Blood Pressure 160/90 01/18/2024 1:20 PM EDT Sit ting L Arm Pulse 87 01/18/2024 1:20 PM EDT Temperature - - Respiratory Rate - - Oxygen Saturation - - Inhaled Oxygen Concentration - - Weight 74.8 kg (165 lb) 01/18/2024 1:20 PM EDT Height 147.3 cm (4' 10 ) 01/18/2024 1:20 PM EDT Body Mass Index 34.49 01/18/2024 1:20 PM EDT Plan of Treatment Upcoming Encounters Date Type Department Care Team (Late st Contact Info) Description 07/19/2024 3:30 PM EDT Ancillary Procedure [facility] [address] [place] [phone] 07/31/2024 10:20 AM EDT Office Visit [facility] [address] [place] [phone] Sis Dowell MD [address] [place] [address] Health Maintenance Due Date Last Done Comments Pneumococcal Vaccine: 65+ Years (1 of 2 - PCV) 1946 Diabetes: Annual Foot Exam 1951 Diabetes: Annual Retina Eye Exam 1950 RSV Immunization Patients 60+ Years Old (1 - 1-dose 75+ series) 01/09/2016 Zoster Vaccines (2 of 2) 04/20/2021 02/23/2021 Cholesterol Screening (Lipid Panel) 04/03/2022 Depression Screening 04/03/2022 Falls Risk Assessment 04/03/2022 Osteoporosis Screening (Bone Density Screening) 04/03/2022 Social Influencers of Health Screening 04/03/2022 Medicare Annual Wellness Visit 07/02/2022 07/02/2021 COVID-19 Vaccine ( season) 2023 Influenza Vaccine (#1) 2023 , 01/19/2022, 12/19/2020 Diabetes: Annual Urine Albumin-Creatinine Ratio (uACR) 03/29/2024 Diabetes: Blood Sugar Control Test (HGBA1C) 09/27/2024 03/29/2024 Diabetes: Annual GFR (Glomerular Filtration Rate) 04/26/2025 04/26/2024, 04/17/2024, 04/10/2024, Additional history exists Hypertension/CHF/CAD Annual BMP Blood Test 04/26/2025 04/26/2024, 04/17/2024, 04/10/2024, Additional history exists DTaP,Tdap,and Td Vaccines (2 - Td or Tdap) 06/22/2032 06/22/2022 HIB Vaccines Aged Out No longer eligi ble based on patient's age to complete this topic HPV Vaccines Aged Out No longer eligi ble based on patient's age to complete this topic Hepatitis A Vaccines Aged Out No long er eligible based on patient's age to complete this topic Hepatitis B Vaccines Aged Out No long er eligible based on patient's age to complete this topic IPV Vaccines Aged Out No longer eligi ble based on patient's age to complete this topic MMR Vaccines Aged Out No longer eligi ble based on patient's age to complete this topic Meningococcal ACWY Vaccine Aged Out N o longer eligible based on patient's age to complete this topic RSV Immunization Patients Under 20 months Aged Out No longer eligible based on patient's age to complete this topic Varicella Vaccines Aged Out No longer eligible based on patient's age to complete this topic Procedures Procedure Name Priority Date/Time Associated Diagnosis Comments TRIIODOTHYRONINE FREE Routine 04/26/2024 6:34 AM EST Anemia, unspecified Type 2 diabetes mellitus without complications (CMS/HCC) THYROXINE FREE Routine 04/26/2024 6:34 AM EST Anemia, unspecified Type 2 diabetes mellitus without complications (CMS/HCC) THYROID STIMULATING HORMONE Routine 04/26/2024 6:34 AM EST Anemia, unspecified Type 2 diabetes mellitus without complications (CMS/HCC) BASIC METABOLIC PANEL Routine 04/26/2024 6:34 AM EST Anemia, unspecified Type 2 diabetes mellitus without complications (CMS/HCC) COMPLETE BLOOD COUNT Routine 04/26/2024 6:34 AM EST Anemia, unspecified Type 2 diabetes mellitus without complications (CMS/HCC) URINALYSIS WITH REFLEX MICROSCOPIC Routine 04/25/2024 1:30 PM EST Dysuria URINALYSIS WITH REFLEX MICROSCOPIC Routine 04/25/2024 1:30 PM EST Dysuria CULTURE URINE Routine 04/25/2024 1:30 PM EST Dysuria BASIC METABOLIC PANEL Routine 04/17/2024 7:30 AM EST Anemia, unspecified COMPLETE BLOOD COUNT Routine 04/17/2024 7:30 AM EST Anemia, unspecified BASIC METABOLIC PANEL Routine 04/10/2024 5:20 AM EST Anemia, unspecified COMPLETE BLOOD COUNT Routine 04/10/2024 5:20 AM EST Anemia, unspecified CLOSTRIDIUM DIFFICILE TOXIN Routine 04/05/2024 5:00 PM EST Unspecified dementia, unspecified severity, without behavioral disturbance, psychotic disturbance, mood disturbance, and anxiety (CMS/HCC) Unspecified infectious disease MAGNESIUM Routine 04/03/2024 9:41 AM EST Anemia, unspecified COMPLETE BLOOD COUNT Routine 04/03/2024 8:41 AM EST Anemia, unspecified LAVENDER - EDTA Routine 03/29/2024 6:51 AM EST Unspecified atrial fibrillation (CMS/HCC) Type 2 diabetes mellitus without complications (CMS/HCC) Anemia, unspecified CBC WITH AUTO DIFFERENTIAL Routine 03/29/2024 6:51 AM EST Unspecified atrial fibrillation (CMS/HCC) Type 2 diabetes mellitus without complications (CMS/HCC) Anemia, unspecified HEMOGLOBIN A1C Routine 03/29/2024 6:51 AM EST Unspecified atrial fibrillation (CMS/HCC) Type 2 diabetes mellitus without complications (CMS/HCC) Anemia, unspecified COMPREHENSIVE METABOLIC PANEL Routine 03/29/2024 6:51 AM EST Unspecified atrial fibrillation (CMS/HCC) Type 2 diabetes mellitus without complications (CMS/HCC) Anemia, unspecified CBC AND DIFFERENTIAL Routine 03/29/2024 6:51 AM EST Unspecified atrial fibrillation (CMS/HCC) Type 2 diabetes mellitus without complications (CMS/HCC) Anemia, unspecified from Last 3 Months Results * (ABNORMAL) Complete blood count (04/26/2024 6:34 AM EST) Only the most recent of4 resultswithin the time period is included. [facility] Signature WBC 10.3 4.8 - 10.8 K/mcL LAB HEMETOLOGY METHOD 04/26/2024 8:13 AM [facility] RBC 3.60(L) 3.80 - 4.80 M/mcL LAB HEMETOLOGY METHOD 04/26/2024 8:13 AM [facility] Hemoglobin 9.7(L) 11.5 - 16.0 g/dL LAB HEMETOLOGY METHOD 04/26/2024 8:13 AM [facility] Hematocrit 31.6(L) 35.0 - 47.0 % LAB HEMETOLOGY METHOD 04/26/2024 8:13 AM [facility] MCV 88.3 79.0 - 98.0 FL LAB HEMETOLOGY METHOD 04/26/2024 8:13 AM [facility] MCH 27.1 27.0 - 32.0 pcg LAB HEMETOLOGY METHOD 04/26/2024 8:13 AM [facility] MCHC 30.7(L) 32.0 - 37.0 g/dL LAB HEMETOLOGY METHOD 04/26/2024 8:13 AM [facility] RDW 17.0(H) 11.0 - 15.0 % LAB HEMETOLOGY METHOD 04/26/2024 8:13 AM [facility] Platelets 215 130 - 400 K/mcL LAB HEMETOLOGY METHOD 04/26/2024 8:13 AM [facility] MPV 10.8 7.0 - 11.0 FL LAB HEMETOLOGY METHOD 04/26/2024 8:13 AM [facility] NRBC 0.0 <1.0 % LAB HEMETOLOGY METHOD 04/26/2024 8:13 AM [facility] NRBC Absolute 0.00 <0.10 K/mcL LAB HEMETOLOGY METHOD 04/26/2024 8:[address] [facility] Blood Venous blood specimen / Unknown Venipuncture / Unknown 04/26/2024 6:34 AM EST 04/26/2024 7:53 AM EST Mookie Donovan MD LAB BLOOD ORDERABL ES Performing Organization Address City/[facility]/ZIP Co de Phone Number [facility] [address] [place] [address], [place] [phone] * (ABNORMAL) Triiodothyronine free (04/26/2024 6:34 AM EST) T3, Free 223(L) 230 - 420 pcg/dL LAB CHEMISTRY METHOD 04/26/2024 8:[address] [facility] Blood Venous blood specimen / Unknown Venipuncture / Unknown 04/26/2024 6:34 AM EST 04/26/2024 7:53 AM EST Mookie Donovan MD LAB BLOOD ORDERABL ES Performing Organization Address [facility] Co de Phone Number [facility] [address] [place] [address], [place] [phone] * (ABNORMAL) Thyroid stimulating hormone (04/26/2024 6:34 AM EST) TSH 6.69(H) 0.40 - 4.00 mcIU/mL LAB CHEMISTRY METHOD 04/26/2024 8:[address] [facility] Blood Venous blood specimen / Unknown Venipuncture / Unknown 04/26/2024 6:34 AM EST 04/26/2024 7:53 AM EST Mookie Donovan MD LAB BLOOD ORDERABL ES Performing Organization Address City/[facility]/ZIP Co de Phone Number [facility] [address] [place] [address], [place] [phone] * Thyroxine free (04/26/2024 6:34 AM EST) [facility] Free T4 1.25 0.70 - 1.80 ng/dL LAB CHEMISTRY METHOD 04/26/2024 8:46 AM [facility] Blood Venous blood specimen / Unknown Venipuncture / Unknown 04/26/2024 6:34 AM EST 04/26/2024 7:53 AM EST Mookie Donovan MD LAB BLOOD ORDERABL ES [facility] [address] [place] [address], * (ABNORMAL) Basic metabolic panel (04/26/2024 6:34 AM EST) Only the most recent of3 resultswithin the time period is included. [facility] Sodium 137 133 - 145 mmol/L LAB CHEMISTRY METHOD 04/26/2024 8:38 AM [facility] Potassium 3.7 3.5 - 5.5 mmol/L LAB CHEMISTRY METHOD 04/26/2024 8:38 AM [facility] Chloride 101 96 - 110 mmol/L LAB CHEMISTRY METHOD 04/26/2024 8:38 AM [facility] CO2 34(H) 21 - 32 mmol/L LAB CHEMISTRY METHOD 04/26/2024 8:38 AM [facility] Anion Gap 2(L) 3 - 11 LAB CHEMISTRY METHOD 04/26/2024 8:38 AM [facility] Glucose 133(H) 70 - 100 mg/dL LAB CHEMISTRY METHOD 04/26/2024 8:38 AM [facility] BUN 15 5 - 25 mg/dL LAB CHEMISTRY METHOD 04/26/2024 8:38 AM [facility] Creatinine 0.60 0.50 - 1.10 mg/dL LAB CHEMISTRY METHOD 04/26/2024 8:38 AM [facility] eGFR 89 >=60 mL/min/1. 73m2 LAB CHEMISTRY METHOD 04/26/2024 8:38 AM [facility] Comment:Calculation based on the??Chronic Kidney Disease Epidemiology Collaboration (CKD-EPI) equation refit??without adjustment for race. BUN/Creatinine Ratio 25.0 LAB CHEMISTRY METHOD 04/26/2024 8:38 AM [facility] Calcium 8.7 8.5 - 10.5 mg/dL LAB CHEMISTRY METHOD 04/26/2024 8:38 AM [facility] Blood Venous blood specimen / Unknown Venipuncture / Unknown 04/26/2024 6:34 AM EST 04/26/2024 7:53 AM EST Mookie Donovan MD LAB BLOOD ORDERABL ES [facility] [address] [place] [address], * (ABNORMAL) Urinalysis with reflex microscopic (04/25/2024 1:30 PM EST) Specific [place] Urine 1.028 1.003 - 1.030 LAB URINALYSIS - AUTOMATED METHOD 04/26/2024 9:42 AM [facility] pH, Urine 5.5 5.0 - 8.0 pH LAB URINALYSIS - AUTOMATED METHOD 04/26/2024 9:42 AM [facility] Leukocytes, Urine Moderate(A) Negative LAB URINALYSIS - AUTOMATED METHOD 04/26/2024 9:42 AM [facility] Nitrite, Urine Negative Negative LAB URINALYSIS - AUTOMATED METHOD 04/26/2024 9:42 AM [facility] Protein, Urine 100(A) <=Trace mg/dL LAB URINALYSIS - AUTOMATED METHOD 04/26/2024 9:42 AM [facility] Glucose, Urine Negative Negative mg/dL LAB URINALYSIS - AUTOMATED METHOD 04/26/2024 9:42 AM [facility] Ketones, Urine Trace(A) Negative mg/dL LAB URINALYSIS - AUTOMATED METHOD 04/26/2024 9:42 AM [facility] Urobilinogen , Urine 1.0 0.2 - 1.0 mg/dL LAB URINALYSIS - AUTOMATED METHOD 04/26/2024 9:42 AM [facility] Bilirubin, Urine Negative Negative LAB URINALYSIS - AUTOMATED METHOD 04/26/2024 9:42 AM [facility] Blood, Urine Moderate(A) Negative LAB URINALYSIS - AUTOMATED METHOD 04/26/2024 9:42 AM [facility] RBC, Urine 7.4(H) 0 - 4 /HPF LAB URINALYSIS - AUTOMATED METHOD 04/26/2024 9:42 AM [facility] WBC, Urine 700.4(H) 0 - 4 /HPF LAB URINALYSIS - AUTOMATED METHOD 04/26/2024 9:42 AM [facility] Squamous Epithelial, Urine 48 0 - 60 /LPF LAB URINALYSIS - AUTOMATED METHOD 04/26/2024 9:42 AM [facility] Bacteria, Urine Many(A) Negative /HPF LAB URINALYSIS - AUTOMATED METHOD 04/26/2024 9:42 AM [facility] Hyaline Casts, Urine 1.0 0 - 3 /LPF LAB URINALYSIS - AUTOMATED METHOD 04/26/2024 9:42 AM [facility] Urine Urine specimen obtained by clean catch procedure / Unknown 04/25/2024 1:30 PM EST 04/26/2024 8:19 AM EST Mookie Donovan MD LAB URINE ORDERABL ES [facility] [address] [place] [address], * (ABNORMAL) Culture urine (04/25/2024 1:30 PM EST) Culture, Urine >100,000 CFU/mL Escherichia coli ESBL(A) WARREN 04/30/2024 9:[address] [facility] Comment: THIS ORGANISM IS POSITIVE FOR EXTENDED SPECTRUM BETA-LACTAMASE (ESBL). ??EXTENDED SPECTRUM BETA-LACTAMASE ??PRODUCING ORGANISMS DEMONSTRATE DECREASED ACTIVITY WITH PENICILLILNS, CEPHALOSPORINS AND AZTREONAM. This is an edited result. Previous organism was Gram negative bacilli on 04/28/2024 at 1047 EST. Edited result: Previously reported as Escherichia coli on 04/29/2024 at 0819 EST. Culture, Urine 50,000-100,000 CFU/mL Klebsiella pneumoniae ESBL(A) W[place]EN 04/30/2024 9:[address] [facility] Comment: THIS ORGANISM IS POSITIVE FOR EXTENDED SPECTRUM BETA-LACTAMASE (ESBL). ??EXTENDED SPECTRUM BETA-LACTAMASE ??PRODUCING ORGANISMS DEMONSTRATE DECREASED ACTIVITY WITH PENICILLILNS, CEPHALOSPORINS AND AZTREONAM. The organism value for this result has been updated. These results have been appended to the previously preliminary verified report. This is an edited result. Previous organism was Gram negative bacilli on 04/28/2024 at 1047 EST. Edited result: Previously reported as Klebsiella pneumoniae on 04/29/2024 at 0819 EST. Urine Urine specimen obtained by clean catch procedure / Unknown 04/25/2024 1:30 PM EST 04/26/2024 8:19 AM EST [facility] - 04/30/2024 9:38 AM EST Additional colony types present in insignificant amounts. Organism Antibiotic Method Susceptibility Escherichia coli ESBL Amoxicillin/Clavulanate WARREN 8 ug/ml: Susceptible Escherichia coli ESBL Ampicillin/Sulbactam WARREN >=32 ug/ml: Resistant Escherichia coli ESBL Piperacillin/Tazobactam WARREN <=4 ug/ml: Susceptible Escherichia coli ESBL Cefazolin (Urine) WARREN >=32 ug/ml: Resistant Escherichia coli ESBL Cefoxitin WARREN <=4 ug/ml: Susceptible Escherichia coli ESBL Ceftazidime WARREN 8 ug/ml: Intermediate Escherichia coli ESBL Ceftriaxone WARREN >=64 ug/ml: Resistant Escherichia coli ESBL Cefepime WARREN 16 ug/ml: Resistant Escherichia coli ESBL Meropenem WARREN <=0.25 ug/ml: Susceptible Escherichia coli ESBL Amikacin WARREN 2 ug/ml: Susceptible Escherichia coli ESBL Gentamicin WARREN >=16 ug/ml: Resistant Escherichia coli ESBL Ciprofloxacin WARREN 1 ug/ml: Resistant Escherichia coli ESBL Levofloxacin WARREN 1 ug/ml: Intermediate Escherichia coli ESBL Nitrofurantoin WARREN <=16 ug/ml: Susceptible Escherichia coli ESBL Trimethoprim/Sulfa methoxazo le WARREN >=320 ug/ml: Resistant Klebsiella pneumoniae ESBL Amoxicillin/Clavulanate WARREN 8 ug/ml: Susceptible Klebsiella pneumoniae ESBL Ampicillin/Sulbactam WARREN >=32 ug/ml: Resistant Klebsiella pneumoniae ESBL Piperacillin/Tazobactam WARREN <=4 ug/ml: Susceptible Klebsiella pneumoniae ESBL Cefazolin (Urine) WARREN >=32 ug/ml: Resistant Klebsiella pneumoniae ESBL Cefoxitin WARREN <=4 ug/ml: Susceptible Klebsiella pneumoniae ESBL Ceftazidime WARREN >=32 ug/ml: Resistant Klebsiella pneumoniae ESBL Ceftriaxone WARREN >=64 ug/ml: Resistant Klebsiella pneumoniae ESBL Cefepime WARREN >=32 ug/ml: Resistant Klebsiella pneumoniae ESBL Meropenem WARREN <=0.25 ug/ml: Susceptible Klebsiella pneumoniae ESBL Amikacin WARREN <=1 ug/ml: Susceptible Klebsiella pneumoniae ESBL Gentamicin WARREN <=1 ug/ml: Susceptible Klebsiella pneumoniae ESBL Ciprofloxacin WARREN 1 ug/ml: Resistant Klebsiella pneumoniae ESBL Levofloxacin WARREN 1 ug/ml: Intermediate Klebsiella pneumoniae ESBL Nitrofurantoin WARREN 64 ug/ml: Intermediate Klebsiella pneumoniae ESBL Trimethoprim/Sulfamethoxazo le WARREN >=320 ug/ml: Resistant Mookie Donovan MD LAB MICROBIOLOGY - GENERAL ORDERABLES [facility] [address] [place] [address], * Clostridium difficile toxin (04/05/2024 5:00 PM EST) Clostridium difficile GDH Antigen Negative Negative 04/06/2024 1:[address] [facility] C difficile Toxins A+B, EIA Negative Negative 04/06/2024 1:[address] [facility] Comment:NEGATIVE FOR TOXIN P RODUCING CLOSTRIDIOIDES DIFFICILE, NO ADDITIONAL TESTING IS NECESSARY. Stool Rectum structure / Unknown 04/05/2024 5:00 PM EST 04/06/2024 9:25 AM EST Mookie Donovan MD LAB MICROBIOLOGY - GENERAL ORDERABLES Performing Organization Address City/[facility]/ZIP Co de Phone Number [facility] [address] [place] [address], [place] [phone] * (ABNORMAL) Magnesium (04/03/2024 9:41 AM EST) Pathologist [facility] Magnesium 1.5(L) 1.9 - 2.6 mg/dL LAB CHEMISTRY METHOD 04/03/2024 12:[address] [facility] Blood Venous blood specimen / Unknown Venipuncture / Unknown 04/03/2024 9:41 AM EST 04/03/2024 10:44 AM EST Mookie Donovan MD LAB BLOOD ORDERABL ES Performing Organization Address [facility]/ZIP Co de Phone Number [facility] [address] [place] [address], [place] [phone] * (ABNORMAL) CBC auto differential (03/29/2024 6:51 AM EST) WBC 16.1(H) 4.8 - 10.8 K/mcL LAB HEMETOLOGY METHOD 03/29/2024 9:23 AM [facility] RBC 3.20(L) 3.80 - 4.80 M/[facility] LAB HEMETOLOGY METHOD 03/29/2024 9:23 AM [facility] Hemoglobin 9.1(L) 11.5 - 16.0 g/dL LAB HEMETOLOGY METHOD 03/29/2024 9:23 AM [facility] Hematocrit 28.3(L) 35.0 - 47.0 % LAB HEMETOLOGY METHOD 03/29/2024 9:23 AM [facility] MCV 88.2 79.0 - 98.0 FL LAB HEMETOLOGY METHOD 03/29/2024 9:23 AM [facility] MCH 28.3 27.0 - 32.0 pcg LAB HEMETOLOGY METHOD 03/29/2024 9:23 AM [facility] MCHC 32.2 32.0 - 37.0 g/dL LAB HEMETOLOGY METHOD 03/29/2024 9:23 AM [facility] RDW 17.6(H) 11.0 - 15.0 % LAB HEMETOLOGY METHOD 03/29/2024 9:23 AM [facility] Platelets 482(H) 130 - 400 K/mcL LAB HEMETOLOGY METHOD 03/29/2024 9:23 AM [facility] MPV 9.2 7.0 - 11.0 FL LAB HEMETOLOGY METHOD 03/29/2024 9:23 AM [facility] NRBC 0.0 <1.0 % LAB HEMETOLOGY METHOD 03/29/2024 9:23 AM [facility] NRBC Absolute 0.00 <0.10 K/mcL LAB HEMETOLOGY METHOD 03/29/2024 9:23 AM [facility] Neutrophils Relative 82.2 % LAB HEMETOLOGY METHOD 03/29/2024 9:23 AM [facility] Lymphocytes Relative 8.3 % LAB HEMETOLOGY METHOD 03/29/2024 9:23 AM [facility] Monocytes Relative 7.4 % LAB HEMETOLOGY METHOD 03/29/2024 9:23 AM [facility] Eosinophils Relative 0.3 % LAB HEMETOLOGY METHOD 03/29/2024 9:23 AM [facility] Basophils Relative 0.2 % LAB HEMETOLOGY METHOD 03/29/2024 9:[address] [facility] Immature Granulocytes Relative 1.6 % LAB HEMETOLOGY METHOD 03/29/2024 9:23 AM [facility] Neutrophils Absolute 13.23(H) 1.50 - 7.00 K/mcL LAB HEMETOLOGY METHOD 03/29/2024 9:[address] [facility] Lymphocytes Absolute 1.33 1.00 - 5.00 K/mcL LAB HEMETOLOGY METHOD 03/29/2024 9:23 AM [facility] Monocytes Absolute 1.19(H) 0.20 - 1.00 K/mcL LAB HEMETOLOGY METHOD 03/29/2024 9:23 AM [facility] Eosinophils Absolute 0.05 0.00 - 0.50 K/mcL LAB HEMETOLOGY METHOD 03/29/2024 9:[address] [facility] Basophils Absolute 0.03 0.00 - 0.20 K/mcL LAB HEMETOLOGY METHOD 03/29/2024 9:[address] [facility] Immature Granulocytes Absolute 0.25(H) 0.00 - 0.03 K/mcL LAB HEMETOLOGY METHOD 03/29/2024 9:23 AM [facility] Blood Venous blood specimen / Unknown Venipuncture / Unknown 03/29/2024 6:51 AM EST 03/29/2024 8:51 AM EST Mookie Donovan MD LAB BLOOD ORDERABL ES [facility] [address] [place] [address], * Lavender tube (03/29/2024 6:51 AM EST) Extra Tube Hold for add-ons. 03/29/2024 11:[address] [facility] Comment:Auto resulted. Blood Venous blood specimen / Unknown 03/29/2024 6:51 AM EST 03/29/2024 9:08 AM EST Mookie Donovan MD LAB BLOOD ORDERABL ES Performing Organization Address [facility]/ZIP Co de Phone Number [facility] [address] [place] [address], [place] [phone] * Hemoglobin A1c (03/29/2024 6:51 AM EST) Pathologist [facility] Hemoglobin A1C 6.1 <6.5 % LAB CHEMISTRY METHOD 03/29/2024 11:[address] [facility] Mean Bld Glu Estim. 128 mg/dL LAB CHEMISTRY METHOD 03/29/2024 11:[address] [facility] Blood Venous blood specimen / Unknown Venipuncture / Unknown 03/29/2024 6:51 AM EST 03/29/2024 8:51 AM EST Mookie Donovan MD LAB BLOOD ORDERABL ES Performing Organization Address City/[facility]/ZIP Co de Phone Number [facility] [address] [place] [address], * (ABNORMAL) Comprehensive metabolic panel (03/29/2024 6:51 AM EST) Pathologist [facility] Sodium 141 133 - 145 mmol/L LAB CHEMISTRY METHOD 03/29/2024 9:[address] [facility] Potassium 3.0(L) 3.5 - 5.5 mmol/L LAB CHEMISTRY METHOD 03/29/2024 9:[address] [facility] Chloride 107 96 - 110 mmol/L LAB CHEMISTRY METHOD 03/29/2024 9:[address] [facility] CO2 24 21 - 32 mmol/L LAB CHEMISTRY METHOD 03/29/2024 9:[address] [facility] Anion Gap 10 3 - 11 LAB CHEMISTRY METHOD 03/29/2024 9:50 AM [facility] Glucose 134(H) 70 - 100 mg/dL LAB CHEMISTRY METHOD 03/29/2024 9:50 AM [facility] BUN 13 5 - 25 mg/dL LAB CHEMISTRY METHOD 03/29/2024 9:50 AM [facility] Creatinine 0.46(L) 0.50 - 1.10 mg/dL LAB CHEMISTRY METHOD 03/29/2024 9:50 AM [facility] eGFR 95 >=60 mL/min/1. 73m2 LAB CHEMISTRY METHOD 03/29/2024 9:50 AM [facility] Comment:Calculation based on the??Chronic Kidney Disease Epidemiology Collaboration (CKD-EPI) equation refit??without adjustment for race. BUN/Creatinine Ratio 28.3 LAB CHEMISTRY METHOD 03/29/2024 9:50 AM [facility] Calcium 8.4(L) 8.5 - 10.5 mg/dL LAB CHEMISTRY METHOD 03/29/2024 9:50 AM [facility] AST (SGOT) 17 10 - 42 unit/L LAB CHEMISTRY METHOD 03/29/2024 9:50 AM [facility] ALT (SGPT) 13 10 - 60 unit/L LAB CHEMISTRY METHOD 03/29/2024 9:50 AM [facility] Alkaline Phosphatase 161(H) 42 - 121 unit/L LAB CHEMISTRY METHOD 03/29/2024 9:50 AM [facility] Total Protein 5.5(L) 6.0 - 8.0 g/dL LAB CHEMISTRY METHOD 03/29/2024 9:50 AM [facility] Albumin 2.0(L) 3.2 - 5.0 g/dL LAB CHEMISTRY METHOD 03/29/2024 9:50 AM [facility] Total Bilirubin 0.4 0.0 - 1.4 mg/dL LAB CHEMISTRY METHOD 03/29/2024 9:[address] [facility] Blood Venous blood specimen / Unknown Venipuncture / Unknown 03/29/2024 6:51 AM EST 03/29/2024 8:51 AM EST Mookie Donovan MD LAB BLOOD ORDERABL ES [facility] [address] [place] [address], from Last 3 Months Additional Health Concerns Infection Onset Date Last Indicated ESBL 04/25/2024 04/25/2024 Care Teams Music Director Relationship Specialty Start Date End Date Melissa Shannon MD [address] [place] [address] PCP - General Internal Medicine 04/02/13
--- OUTSIDE RECORDS SUMMARY | 2024-05-25 10:46 | XMS_ITS | Encounter Summary ---
Author Organization [facility] [place] [address] Care Team Providers Care Blow Torch Operator Name Role Phone Melissa Shannon MD Primary Care Provider Encounter Details Date Type Department Care Team (Late st Contact Info) Description 03/29/2024 Lab Requisition [facility] - Main Lab [address] [facility] [place] [phone] Mookie Donovan MD [address] [place] [address] Unspecified atrial fibrillation (CMS/HCC); Type 2 diabetes mellitus without complications (CMS/HCC); Anemia, unspecified Social History Tobacco Use Types Packs/Day Years Used Date Smoking Tobacco: Former Smokeless Tobacco: Never Alcohol Use Standard Drinks/Week Comments Not Currently 0 (1 standard drink = 0.6 oz pur e alcohol) Sex and Gender Information Value Date Recorded Sex Assigned at Not on file Gender Identity Not on file Sexual Orientation Not on file documented as of this encounter Plan of Treatment Upcoming Encounters Date Type Department Care Team (Late st Contact Info) Description 07/19/2024 3:30 PM EDT Ancillary Procedure [facility] Cardiology [facility] [address] [place] [address] 07/31/2024 10:20 AM EDT Office Visit [facility] Cardiology [facility] [address] [facility] [address] [place] [phone] Sis Dowell MD [address] [place] [address] documented as of this encounter Procedures Procedure Name Priority Date/Time Associated Diagnosis Comments CBC WITH AUTO DIFFERENTIAL Routine 03/29/2024 6:51 AM EST Unspecified atrial fibrillation (CMS/HCC) Type 2 diabetes mellitus without complications (CMS/HCC) Anemia, unspecified LAVENDER - EDTA Routine 03/29/2024 [...] diabetes mellitus without complications (CMS/HCC) Anemia, unspecified documented in this encounter Results * Lavender tube (03/29/2024 6:51 AM EST) Extra Tube Hold for add-ons. 03/29/2024 11:01 AM EST [facility] Comment:Auto resulted. Blood Venous blood specimen / Unknown 03/29/2024 6:51 AM EST 03/29/2024 9:08 AM EST Mookie Donovan MD LAB BLOOD ORDERABL ES [facility] [address] [place] [address], * (ABNORMAL) CBC auto differential (03/29/2024 6:51 AM EST) [facility] Signature WBC 16.1(H) 4.8 - 10.8 K/mcL LAB HEMETOLOGY METHOD 03/29/2024 9:23 AM [facility] RBC 3.20(L) 3.80 - 4.80 M/mcL LAB HEMETOLOGY METHOD 03/29/2024 9:23 AM [facility] Hemoglobin 9.1(L) 11.5 - 16.0 g/dL LAB HEMETOLOGY METHOD 03/29/2024 9:23 AM [facility] Hematocrit 28.3(L) 35.0 - 47.0 % LAB HEMETOLOGY METHOD 03/29/2024 9:23 AM [facility] MCV 88.2 79.0 - 98.0 FL LAB HEMETOLOGY METHOD 03/29/2024 9:23 AM [facility] MCH 28.3 27.0 - 32.0 pcg LAB HEMETOLOGY METHOD 03/29/2024 9:23 AM [facility] MCHC 32.2 32.0 - 37.0 g/dL LAB HEMETOLOGY METHOD 03/29/2024 9:23 AM [facility] RDW 17.6(H) 11.0 - 15.0 % LAB HEMETOLOGY METHOD 03/29/2024 9:23 AM [facility] Platelets 482(H) 130 - 400 K/mcL LAB HEMETOLOGY METHOD 03/29/2024 9:23 AM [facility] MPV 9.2 7.0 - 11.0 FL LAB HEMETOLOGY METHOD 03/29/2024 9:23 AM [facility] NRBC 0.0 <1.0 % LAB HEMETOLOGY METHOD 03/29/2024 9:23 AM [facility] NRBC Absolute 0.00 <0.10 K/mcL LAB HEMETOLOGY METHOD 03/29/2024 9:23 AM [facility] Neutrophils Relative 82.2 % LAB HEMETOLOGY METHOD 03/29/2024 9:23 AM [facility] Lymphocytes Relative 8.3 % LAB HEMETOLOGY METHOD 03/29/2024 9:23 AM [facility] Monocytes Relative 7.4 % LAB HEMETOLOGY METHOD 03/29/2024 9:23 AM [facility] Eosinophils Relative 0.3 % LAB HEMETOLOGY METHOD 03/29/2024 9:23 AM [facility] Basophils Relative 0.2 % LAB HEMETOLOGY METHOD 03/29/2024 9:23 AM [facility] Immature Granulocytes Relative 1.6 % LAB HEMETOLOGY METHOD 03/29/2024 9:23 AM [facility] Neutrophils Absolute 13.23(H) 1.50 - 7.00 K/mcL LAB HEMETOLOGY METHOD 03/29/2024 9:23 AM [facility] Lymphocytes Absolute 1.33 1.00 - 5.00 K/mcL LAB HEMETOLOGY METHOD 03/29/2024 9:23 AM [facility] Monocytes Absolute 1.19(H) 0.20 - 1.00 K/mcL LAB HEMETOLOGY METHOD 03/29/2024 9:23 AM [facility] Eosinophils Absolute 0.05 0.00 - 0.50 K/mcL LAB HEMETOLOGY METHOD 03/29/2024 9:23 AM [facility] Basophils Absolute 0.03 0.00 - 0.20 K/mcL LAB HEMETOLOGY METHOD 03/29/2024 9:23 AM [facility] Immature Granulocytes Absolute 0.25(H) 0.00 - 0.03 K/mcL LAB HEMETOLOGY METHOD 03/29/2024 9:23 AM [facility] Blood Venous blood specimen / Unknown Venipuncture / Unknown 03/29/2024 6:51 AM EST 03/29/2024 8:51 AM EST Mookie Donovan MD LAB BLOOD ORDERABL ES Performing Organization Address [facility]/ZIP Co de Phone Number [facility] [address] [place] [address], [place] [phone] * Hemoglobin A1c (03/29/2024 6:51 AM EST) Pathologist [facility] Hemoglobin A1C 6.1 <6.5 % LAB CHEMISTRY METHOD 03/29/2024 11:40 AM EST [facility] Mean Bld Glu Estim. 128 mg/dL LAB CHEMISTRY METHOD 03/29/2024 11:40 AM EST [facility] Blood Venous blood specimen / Unknown Venipuncture / Unknown 03/29/2024 6:51 AM EST 03/29/2024 8:51 AM EST Mookie Donovan MD LAB BLOOD ORDERABL ES Performing Organization Address City/[facility]/ZIP Co de Phone Number [facility] [address] [place] [address], [place] [phone] * (ABNORMAL) Comprehensive metabolic panel (03/29/2024 6:51 AM EST) Pathologist [facility] Sodium 141 133 - 145 mmol/L LAB CHEMISTRY METHOD 03/29/2024 9:50 AM EST [facility] Potassium 3.0(L) 3.5 - 5.5 mmol/L LAB CHEMISTRY METHOD 03/29/2024 9:50 AM EST [facility] Chloride 107 96 - 110 mmol/L LAB CHEMISTRY METHOD 03/29/2024 9:50 AM EST [facility] CO2 24 21 - 32 mmol/L LAB CHEMISTRY METHOD 03/29/2024 9:50 AM EST [facility] Anion Gap 10 3 - 11 LAB CHEMISTRY METHOD 03/29/2024 9:50 AM [facility] Glucose 134(H) 70 - 100 mg/dL LAB CHEMISTRY METHOD 03/29/2024 9:50 AM [facility] BUN 13 5 - 25 mg/dL LAB CHEMISTRY METHOD 03/29/2024 9:50 AM [facility] Creatinine 0.46(L) 0.50 - 1.10 mg/dL LAB CHEMISTRY METHOD 03/29/2024 9:50 AM [facility] eGFR 95 >=60 mL/min/1. 73m2 LAB CHEMISTRY METHOD 03/29/2024 9:50 AM [facility] Comment:Calculation based on the??Chronic Kidney Disease Epidemiology Collaboration (CKD-EPI) equation refit??without adjustment for race. BUN/Creatinine Ratio 28.3 LAB CHEMISTRY METHOD 03/29/2024 9:50 AM [facility] Calcium 8.4(L) 8.5 - 10.5 mg/dL LAB CHEMISTRY METHOD 03/29/2024 9:50 AM [facility] AST (SGOT) 17 10 - 42 unit/L LAB CHEMISTRY METHOD 03/29/2024 9:50 AM [facility] ALT (SGPT) 13 10 - 60 unit/L LAB CHEMISTRY METHOD 03/29/2024 9:50 AM [facility] Alkaline Phosphatase 161(H) 42 - 121 unit/L LAB CHEMISTRY METHOD 03/29/2024 9:50 AM [facility] Total Protein 5.5(L) 6.0 - 8.0 g/dL LAB CHEMISTRY METHOD 03/29/2024 9:50 AM [facility] Albumin 2.0(L) 3.2 - 5.0 g/dL LAB CHEMISTRY METHOD 03/29/2024 9:50 AM [facility] Total Bilirubin 0.4 0.0 - 1.4 mg/dL LAB CHEMISTRY METHOD 03/29/2024 9:50 AM [facility] Blood Venous blood specimen / Unknown Venipuncture / Unknown 03/29/2024 6:51 AM EST 03/29/2024 8:51 AM EST Mookie Donovan MD LAB BLOOD ORDERABL ES [facility] [address] [place] [address], documented in this encounter Visit Diagnoses Diagnosis Unspecified atrial fibrillation (CMS/HCC) Type 2 diabetes mellitus without complications (CMS/HCC) Anemia, unspecified documented in this encounter Additional Health Concerns Infection Onset Date Last Indicated Resolved Time ESBL 04/25/2024 04/25/2024 documented as of this encounter Care Teams Blow Torch Operator Relationship Specialty Start Date End Date Melissa Shannon MD [address] [place] [address] PCP - General Internal Medicine 04/02/13 documented as of this encounter
--- OUTSIDE RECORDS SUMMARY | 2024-05-25 10:46 | XMS_ITS | Encounter Summary ---
Author Organization [facility] [place] [address] Care Team Providers Care Building Stonecutter Name Role Phone Melissa Shannon MD Primary Care Provider Encounter Details Date Type Department Care Team (Late st Contact Info) Description 04/26/2024 Lab Requisition [facility] - Main Lab [address] [facility] [place] [phone] Mookie Donovan MD [address] [place] [address] Anemia, unspecified; Type 2 diabetes mellitus without complications (CMS/HCC) Social History Tobacco Use Types Packs/Day Years [...] Description 07/19/2024 3:30 PM EDT Ancillary Procedure [facility] Cardiology [facility] [address] [place] [address] 07/31/2024 10:20 AM EDT Office Visit [facility] Cardiology [facility] [address] [address] [place] [phone] Sis Dowell MD [address] [place] [address] documented as of this encounter Procedures Procedure Name Priority Date/Time Associated Diagnosis Comments COMPLETE BLOOD COUNT Routine 04/26/2024 6:34 AM EST Anemia, unspecified Type 2 diabetes mellitus without complications (CMS/HCC) TRIIODOTHYRONINE FREE Routine 04/26/2024 6:34 AM EST [...] Type 2 diabetes mellitus without complications (CMS/HCC) documented in this encounter Results * (ABNORMAL) Triiodothyronine free (04/26/2024 6:34 AM EST) T3, Free 223(L) 230 - 420 pcg/dL LAB CHEMISTRY METHOD 04/26/2024 8:47 AM EST [facility] Blood Venous blood specimen / Unknown Venipuncture / Unknown 04/26/2024 6:34 AM EST 04/26/2024 7:53 AM EST Mookie Donovan MD LAB BLOOD ORDERABL ES [facility] [address] [place] [address], * Thyroxine free (04/26/2024 6:34 AM EST) Free T4 1.25 0.70 - 1.80 ng/dL LAB CHEMISTRY METHOD 04/26/2024 8:46 AM EST [facility] Blood Venous blood specimen / Unknown Venipuncture / Unknown 04/26/2024 6:34 AM EST 04/26/2024 7:53 AM EST Mookie Donovan MD LAB BLOOD ORDERABL ES [facility] [address] [place] [address], [place] [phone] * (ABNORMAL) Thyroid stimulating hormone (04/26/2024 6:34 AM EST) Pathologist [facility] TSH 6.69(H) 0.40 - 4.00 mcIU/mL LAB CHEMISTRY METHOD 04/26/2024 8:48 AM EST [facility] Blood Venous blood specimen / Unknown Venipuncture / Unknown 04/26/2024 6:34 AM EST 04/26/2024 7:53 AM EST Mookie Donovan MD LAB BLOOD ORDERABL ES [facility] [address] [place] [address], [place] [phone] * (ABNORMAL) Basic metabolic panel (04/26/2024 6:34 AM EST) Pathologist [facility] Sodium 137 133 - 145 mmol/L LAB CHEMISTRY METHOD 04/26/2024 8:38 AM EST [facility] Potassium 3.7 3.5 - 5.5 mmol/L LAB CHEMISTRY METHOD 04/26/2024 8:38 AM EST [facility] Chloride 101 96 - 110 mmol/L LAB CHEMISTRY METHOD 04/26/2024 8:38 AM EST [facility] CO2 34(H) 21 - 32 mmol/L LAB CHEMISTRY METHOD 04/26/2024 8:38 AM EST [facility] Anion Gap 2(L) 3 - 11 LAB CHEMISTRY METHOD 04/26/2024 8:38 AM [facility] Glucose 133(H) 70 - 100 mg/dL LAB CHEMISTRY METHOD 04/26/2024 8:38 AM [facility] BUN 15 5 - 25 mg/dL LAB CHEMISTRY METHOD 04/26/2024 8:38 AM [facility] Creatinine 0.60 0.50 - 1.10 mg/dL LAB CHEMISTRY METHOD 04/26/2024 8:38 AM [facility] eGFR 89 >=60 mL/min/1. 73m2 LAB CHEMISTRY METHOD 04/26/2024 8:38 AM [facility] Comment:Calculation based on the??Chronic Kidney Disease Epidemiology Collaboration (CKD-EPI) equation refit??without adjustment for race. BUN/Creatinine Ratio 25.0 LAB CHEMISTRY METHOD 04/26/2024 8:38 AM [facility] Calcium 8.7 8.5 - 10.5 mg/dL LAB CHEMISTRY METHOD 04/26/2024 8:38 AM [facility] Blood Venous blood specimen / Unknown Venipuncture / Unknown 04/26/2024 6:34 AM EST 04/26/2024 7:53 AM EST Mookie Donovan MD LAB BLOOD ORDERABL ES [facility] [address] [place] [address], * (ABNORMAL) Complete blood count (04/26/2024 6:34 AM EST) WBC 10.3 4.8 - 10.8 K/mcL LAB HEMETOLOGY METHOD 04/26/2024 8:13 AM [facility] RBC 3.60(L) 3.80 - 4.80 M/mcL LAB HEMETOLOGY METHOD 04/26/2024 8:13 AM [facility] Hemoglobin 9.7(L) 11.5 - 16.0 g/dL LAB HEMETOLOGY METHOD 04/26/2024 8:13 AM [facility] Hematocrit 31.6(L) 35.0 - 47.0 % LAB HEMETOLOGY METHOD 04/26/2024 8:13 AM [facility] MCV 88.3 79.0 - 98.0 FL LAB HEMETOLOGY METHOD 04/26/2024 8:13 AM [facility] MCH 27.1 27.0 - 32.0 pcg LAB HEMETOLOGY METHOD 04/26/2024 8:13 AM [facility] MCHC 30.7(L) 32.0 - 37.0 g/dL LAB HEMETOLOGY METHOD 04/26/2024 8:13 AM [facility] RDW 17.0(H) 11.0 - 15.0 % LAB HEMETOLOGY METHOD 04/26/2024 8:13 AM [facility] Platelets 215 130 - 400 K/mcL LAB HEMETOLOGY METHOD 04/26/2024 8:13 AM [facility] MPV 10.8 7.0 - 11.0 FL LAB HEMETOLOGY METHOD 04/26/2024 8:13 AM [facility] NRBC 0.0 <1.0 % LAB HEMETOLOGY METHOD 04/26/2024 8:13 AM [facility] NRBC Absolute 0.00 <0.10 K/mcL LAB HEMETOLOGY METHOD 04/26/2024 8:13 AM [facility] Blood Venous blood specimen / Unknown Venipuncture / Unknown 04/26/2024 6:34 AM EST 04/26/2024 7:53 AM EST Mookie Donovan MD LAB BLOOD ORDERABL ES [facility] [address] [place] [address], documented in this encounter Visit Diagnoses Diagnosis Anemia, unspecified Type 2 diabetes mellitus without complications (CMS/HCC) documented in this encounter Additional Health Concerns Infection Onset Date Last Indicated Resolved Time ESBL 04/25/2024 04/25/2024 documented as of this encounter Care Teams Building Stonecutter Relationship Specialty Start Date End Date Melissa Shannon MD [address] [place] [address] PCP - General Internal Medicine 04/02/13 documented as of this encounter
--- OUTSIDE RECORDS SUMMARY | 2024-05-25 10:46 | XMS_ITS | Encounter Summary ---
Author Organization Jessi [facility] [place] [address] Care Team Providers Care Recreation Therapy Aide Name Role Phone Melissa Shannon MD Primary Care Provider Encounter Details Date Type Department Care Team (Late st Contact Info) Description 04/09/2024 Lab Requisition [facility] - Main Lab 299 [facility] [employer] [phone] Mookie Donovan MD [address] [place] [address] Anemia, unspecified Social History Tobacco Use Types [...] Description 07/19/2024 3:30 PM EDT Ancillary Procedure [facility] Associates - [address] [place] [phone] 07/31/2024 10:20 AM EDT Office Visit [facility] Cardiology [facility] - [address] [place] [phone] Sis Dowell MD [address] [place] [address] documented as of this encounter Procedures Procedure Name Priority Date/Time Associated Diagnosis Comments COMPLETE BLOOD COUNT Routine 04/10/2024 5:20 AM EST Anemia, unspecified BASIC METABOLIC PANEL Routine 04/10/2024 5:20 AM EST Anemia, unspecified documented in this encounter Results * (ABNORMAL) Basic metabolic panel (04/10/2024 5:20 AM EST) Pathologist [facility] Sodium 139 133 - 145 mmol/L LAB CHEMISTRY METHOD 04/10/2024 8:03 AM [facility] Potassium 3.8 3.5 - 5.5 mmol/L LAB CHEMISTRY METHOD 04/10/2024 8:03 AM [facility] Chloride 104 96 - 110 mmol/L LAB CHEMISTRY METHOD 04/10/2024 8:03 AM [facility] CO2 31 21 - 32 mmol/L LAB CHEMISTRY METHOD 04/10/2024 8:03 AM [facility] Anion Gap 4 3 - 11 LAB CHEMISTRY METHOD 04/10/2024 8:03 AM [facility] Glucose 123(H) 70 - 100 mg/dL LAB CHEMISTRY METHOD 04/10/2024 8:03 AM [facility] BUN 11 5 - 25 mg/dL LAB CHEMISTRY METHOD 04/10/2024 8:03 AM [facility] Creatinine 0.44(L) 0.50 - 1.10 mg/dL LAB CHEMISTRY METHOD 04/10/2024 8:03 AM [facility] eGFR 96 >=60 mL/min/1. 73m2 LAB CHEMISTRY METHOD 04/10/2024 8:03 AM [facility] Comment:Calculation based on the??Chronic Kidney Disease Epidemiology Collaboration (CKD-EPI) equation refit??without adjustment for race. BUN/Creatinine Ratio 25.0 LAB CHEMISTRY METHOD 04/10/2024 8:03 AM [facility] Calcium 8.1(L) 8.5 - 10.5 mg/dL LAB CHEMISTRY METHOD 04/10/2024 8:03 AM [facility] Blood Venous blood specimen / Unknown Venipuncture / Unknown 04/10/2024 5:20 AM EST 04/10/2024 7:34 AM EST Mookie Donovan MD LAB BLOOD ORDERABL ES [facility] [address] [place] [address], * (ABNORMAL) Complete blood count (04/10/2024 5:20 AM EST) WBC 10.3 4.8 - 10.8 K/mcL LAB HEMETOLOGY METHOD 04/10/2024 7:58 AM [facility] RBC 3.40(L) 3.80 - 4.80 M/mcL LAB HEMETOLOGY METHOD 04/10/2024 7:58 AM [facility] Hemoglobin 9.2(L) 11.5 - 16.0 g/dL LAB HEMETOLOGY METHOD 04/10/2024 7:58 AM [facility] Hematocrit 30.2(L) 35.0 - 47.0 % LAB HEMETOLOGY METHOD 04/10/2024 7:58 AM [facility] MCV 89.9 79.0 - 98.0 FL LAB HEMETOLOGY METHOD 04/10/2024 7:58 AM [facility] MCH 27.4 27.0 - 32.0 pcg LAB HEMETOLOGY METHOD 04/10/2024 7:58 AM [facility] MCHC 30.5(L) 32.0 - 37.0 g/dL LAB HEMETOLOGY METHOD 04/10/2024 7:58 AM EST [facility] RDW 16.9(H) 11.0 - 15.0 % LAB HEMETOLOGY METHOD 04/10/2024 7:58 AM EST [facility] Platelets 330 130 - 400 K/mcL LAB HEMETOLOGY METHOD 04/10/2024 7:58 AM EST [facility] MPV 10.9 7.0 - 11.0 FL LAB HEMETOLOGY METHOD 04/10/2024 7:58 AM EST [facility] NRBC 0.0 <1.0 % LAB HEMETOLOGY METHOD 04/10/2024 7:58 AM EST [facility] NRBC Absolute 0.00 <0.10 K/mcL LAB HEMETOLOGY METHOD 04/10/2024 7:58 AM EST [facility] Blood Venous blood specimen / Unknown Venipuncture / Unknown 04/10/2024 5:20 AM EST 04/10/2024 7:34 AM EST Mookie Donovan MD LAB BLOOD ORDERABL ES [facility] [address] [place] [address], documented in this encounter Visit Diagnoses Diagnosis Anemia, unspecified documented in this encounter Additional Health Concerns Infection Onset Date Last Indicated Resolved Time ESBL 04/25/2024 04/25/2024 documented as of this encounter Care Teams Recreation Therapy Aide Relationship Specialty Start Date End Date Melissa Shannon MD [address] [place] [address] PCP - General Internal Medicine 04/02/13 documented as of this encounter
--- OUTSIDE RECORDS SUMMARY | 2024-05-25 10:46 | XMS_ITS | Encounter Summary ---
Author Organization Jessi [facility] [place] [address] Care Team Providers Care International Organizer Name Role Phone Melissa Shannon MD Primary Care Provider Encounter Details Date Type Department Care Team (Late st Contact Info) Description 04/16/2024 Lab Requisition [facility] - Main Lab 299 [facility] [employer] [place] [phone] Mookie Donovan MD [address] [place] [address] Anemia, unspecified Social History Tobacco Use Types [...] Description 07/19/2024 3:30 PM EDT Ancillary Procedure [facility] Cardiology Associates - [address] [place] [phone] 07/31/2024 10:20 AM EDT Office Visit [facility] Cardiology [facility] - [address] [place] [phone] Sis Dowell MD [address] [place] [address] documented as of this encounter Procedures Procedure Name Priority Date/Time Associated Diagnosis Comments COMPLETE BLOOD COUNT Routine 04/17/2024 7:30 AM EST Anemia, unspecified BASIC METABOLIC PANEL Routine 04/17/2024 7:30 AM EST Anemia, unspecified documented in this encounter Results * (ABNORMAL) Basic metabolic panel (04/17/2024 7:30 AM EST) Sodium 133 133 - 145 mmol/L LAB CHEMISTRY METHOD 04/17/2024 10:43 AM [facility] Potassium 4.1 3.5 - 5.5 mmol/L LAB CHEMISTRY METHOD 04/17/2024 10:43 AM [facility] Chloride 95(L) 96 - 110 mmol/L LAB CHEMISTRY METHOD 04/17/2024 10:43 AM [facility] CO2 28 21 - 32 mmol/L LAB CHEMISTRY METHOD 04/17/2024 10:43 AM [facility] Anion Gap 10 3 - 11 LAB CHEMISTRY METHOD 04/17/2024 10:43 AM [facility] Glucose 126(H) 70 - 100 mg/dL LAB CHEMISTRY METHOD 04/17/2024 10:43 AM [facility] BUN 10 5 - 25 mg/dL LAB CHEMISTRY METHOD 04/17/2024 10:43 AM [facility] Creatinine 0.59 0.50 - 1.10 mg/dL LAB CHEMISTRY METHOD 04/17/2024 10:43 AM [facility] eGFR 90 >=60 mL/min/1. 73m2 LAB CHEMISTRY METHOD 04/17/2024 10:43 AM [facility] Comment:Calculation based on the??Chronic Kidney Disease Epidemiology Collaboration (CKD-EPI) equation refit??without adjustment for race. BUN/Creatinine Ratio 16.9 LAB CHEMISTRY METHOD 04/17/2024 10:43 AM [facility] Calcium 8.8 8.5 - 10.5 mg/dL LAB CHEMISTRY METHOD 04/17/2024 10:43 AM [facility] Blood Venous blood specimen / Unknown Venipuncture / Unknown 04/17/2024 7:30 AM EST 04/17/2024 10:07 AM EST Mookie Donovan MD LAB BLOOD ORDERABL ES [facility] [address] [place] [address], * (ABNORMAL) Complete blood count (04/17/2024 7:30 AM EST) WBC 10.2 4.8 - 10.8 K/mcL LAB HEMETOLOGY METHOD 04/17/2024 10:33 AM [facility] RBC 3.70(L) 3.80 - 4.80 M/mcL LAB HEMETOLOGY METHOD 04/17/2024 10:33 AM [facility] Hemoglobin 10.0(L) 11.5 - 16.0 g/dL LAB HEMETOLOGY METHOD 04/17/2024 10:33 AM [facility] Hematocrit 32.0(L) 35.0 - 47.0 % LAB HEMETOLOGY METHOD 04/17/2024 10:33 AM [facility] MCV 87.2 79.0 - 98.0 FL LAB HEMETOLOGY METHOD 04/17/2024 10:33 AM [facility] MCH 27.2 27.0 - 32.0 pcg LAB HEMETOLOGY METHOD 04/17/2024 10:33 AM [facility] MCHC 31.3(L) 32.0 - 37.0 g/dL LAB HEMETOLOGY METHOD 04/17/2024 10:33 AM [facility] RDW 16.4(H) 11.0 - 15.0 % LAB HEMETOLOGY METHOD 04/17/2024 10:33 AM EST [facility] Platelets 191 130 - 400 K/mcL LAB HEMETOLOGY METHOD 04/17/2024 10:33 AM EST [facility] MPV 10.9 7.0 - 11.0 FL LAB HEMETOLOGY METHOD 04/17/2024 10:33 AM EST [facility] NRBC 0.0 <1.0 % LAB HEMETOLOGY METHOD 04/17/2024 10:33 AM EST [facility] NRBC Absolute 0.00 <0.10 K/mcL LAB HEMETOLOGY METHOD 04/17/2024 10:33 AM [facility] Blood Venous blood specimen / Unknown Venipuncture / Unknown 04/17/2024 7:30 AM EST 04/17/2024 10:07 AM EST Mookie Donovan MD LAB BLOOD ORDERABL ES [facility] [address] [place] [address], documented in this encounter Visit Diagnoses Diagnosis Anemia, unspecified documented in this encounter Additional Health Concerns Infection Onset Date Last Indicated Resolved Time ESBL 04/25/2024 04/25/2024 documented as of this encounter Care Teams International Organizer Relationship Specialty Start Date End Date Melissa Shannon MD [address] [place] [address] PCP - General Internal Medicine 04/02/13 documented as of this encounter
--- OUTSIDE RECORDS SUMMARY | 2024-05-25 10:46 | XMS_ITS | Encounter Summary ---
Author Organization Jessi [place] [address] Care Team Providers Care Supervisor Statement Clerks Name Role Phone Melissa Shannon MD Primary Care Provider Encounter Details Date Type Department Care Team (Late st Contact Info) Description 04/26/2024 Lab Requisition [facility] - Main Lab [address] [facility] [place] [phone] Mookie Donovan MD [address] [place] [address] Dysuria Social History Tobacco Use Types Packs/Day Years [...] Description 07/19/2024 3:30 PM EDT Ancillary Procedure [facility] Cardiology Associates - [address] [place] [address] 07/31/2024 10:20 AM EDT Office Visit [facility] Cardiology [facility] - [address] [place] [address] Sis Dowell MD [address] [place] [address] documented as of this encounter Procedures Procedure Name Priority Date/Time Associated Diagnosis Comments URINALYSIS WITH REFLEX MICROSCOPIC Routine 04/25/2024 1:30 PM EST Dysuria URINALYSIS WITH REFLEX MICROSCOPIC Routine 04/25/2024 1:30 PM EST Dysuria CULTURE URINE Routine 04/25/2024 1:30 PM EST Dysuria documented in this encounter Results * (ABNORMAL) Urinalysis with reflex microscopic (04/25/2024 1:30 PM EST) Specific [place] Urine 1.028 1.003 - 1.030 LAB URINALYSIS [...] Mookie Donovan MD LAB URINE ORDERABL ES [facility] [address] [place] [address], * (ABNORMAL) Culture urine (04/25/2024 1:30 PM EST) Culture, Urine >100,000 CFU/mL Escherichia coli ESBL(A) [place] 04/30/2024 9:38 AM [facility] Comment: THIS ORGANISM IS POSITIVE [...] pneumoniae ESBL(A) [place] 04/30/2024 9:38 AM EST [facility] Comment: THIS ORGANISM IS POSITIVE [...] 1:30 PM EST 04/26/2024 8:19 AM EST [facility] - 04/30/2024 9:38 AM EST Additional [...] Donovan MD LAB MICROBIOLOGY - GENERAL ORDERABLES [facility] [address] [place] [address], documented in this encounter Visit Diagnoses Diagnosis Dysuria documented in this encounter Additional Health Concerns Infection Onset Date Last Indicated Resolved Time ESBL 04/25/2024 04/25/2024 documented as of this encounter Care Teams Supervisor Statement Clerks Relationship Specialty Start Date End Date Melissa Shannon MD [address] [place] [address] PCP - General Internal Medicine 04/02/13 documented as of this encounter
--- OUTSIDE RECORDS SUMMARY | 2024-05-25 10:46 | XMS_ITS | Encounter Summary ---
Author Organization Jessi [facility] [place] [address] Care Team Providers Care Engineering Test Specialist Name Role Phone Melissa Shannon MD Primary Care Provider Encounter Details Date Type Department Care Team (Late st Contact Info) Description 04/06/2024 Lab Requisition [facility] - Main Lab 299 [facility] [place] [phone] Mookie Donovan MD [address] [place] [address] Unspecified dementia, unspecified severity, without behavioral disturbance, psychotic disturbance, mood disturbance, and anxiety (CMS/HCC); Unspecified infectious disease Social History Tobacco Use Types Packs/Day Years [...] Description 07/19/2024 3:30 PM EDT Ancillary Procedure [facility] Cardiology [facility] [address] [facility] [address] [place] [address] [phone] 07/31/2024 10:20 AM EDT Office Visit [facility] Cardiology [facility] [address] [facility] [address] [place] [address] Sis Dowell MD [address] [place] [address] documented as of this encounter Procedures Procedure Name Priority Date/Time Associated Diagnosis Comments CLOSTRIDIUM DIFFICILE TOXIN Routine 04/05/2024 5:00 PM EST Unspecified dementia, unspecified severity, without behavioral disturbance, psychotic disturbance, mood disturbance, and anxiety (CMS/HCC) Unspecified infectious disease documented in this encounter Results * Clostridium difficile toxin (04/05/2024 5:00 PM EST) Clostridium difficile GDH Antigen Negative Negative 04/06/2024 1:38 PM EST [facility] C difficile Toxins A+B, EIA Negative Negative 04/06/2024 1:38 PM EST [facility] Comment:NEGATIVE FOR TOXIN P RODUCING CLOSTRIDIOIDES DIFFICILE, NO ADDITIONAL TESTING IS NECESSARY. Stool Rectum structure / Unknown 04/05/2024 5:00 PM EST 04/06/2024 9:25 AM EST Mookie Donovan MD LAB MICROBIOLOGY - GENERAL ORDERABLES [facility] [address] [place] [address], documented in this encounter Visit Diagnoses Diagnosis Unspecified dementia, unspecified severity, without behavioral disturbance, psychotic disturbance, mood disturbance, and anxiety (CMS/HCC) Unspecified infectious disease documented in this encounter Additional Health Concerns Infection Onset Date Last Indicated Resolved Time ESBL 04/25/2024 04/25/2024 documented as of this encounter Care Teams Engineering Test Specialist Relationship Specialty Start Date End Date Melissa Shanonn MD [address] [place] [address] PCP - General Internal Medicine 04/02/13 documented as of this encounter
--- OUTSIDE RECORDS SUMMARY | 2024-05-25 10:46 | XMS_ITS | Encounter Summary ---
Author Organization Jessi [facility] [place] [address] Care Team Providers Care Senior Hydrogeologist Name Role Phone Melissa Shannon MD Primary Care Provider Encounter Details Date Type Department Care Team (Late st Contact Info) Description 04/02/2024 Lab Requisition [facility] - Main Lab 299 [facility] [employer] [place] [phone] Mookie Donovan MD [address] [place] [address] Anemia, unspecified Social History Tobacco Use Types [...] Description 07/19/2024 3:30 PM EDT Ancillary Procedure [facility] Cardiology Associates - [address] [place] [phone] 07/31/2024 10:20 AM EDT Office Visit [facility] Card[facility] [address] [place] [phone] Sis Dowell MD [address] [place] [address] documented as of this encounter Procedures Procedure Name Priority Date/Time Associated Diagnosis Comments MAGNESIUM Routine 04/03/2024 9:41 AM EST Anemia, unspecified COMPLETE BLOOD COUNT Routine 04/03/2024 8:41 AM EST Anemia, unspecified documented in this encounter Results * (ABNORMAL) Magnesium (04/03/2024 9:41 AM EST) Magnesium 1.5(L) 1.9 - 2.6 mg/dL LAB CHEMISTRY METHOD 04/03/2024 12:21 PM EST [facility] Blood Venous blood specimen / Unknown Venipuncture / Unknown 04/03/2024 9:41 AM EST 04/03/2024 10:44 AM EST Mookie Donovan MD LAB BLOOD ORDERABL ES [facility] [address] [place] [address], * (ABNORMAL) Complete blood count (04/03/2024 8:41 AM EST) WBC 12.7(H) 4.8 - 10.8 K/mcL LAB HEMETOLOGY METHOD 04/03/2024 11:05 AM [facility] RBC 3.30(L) 3.80 - 4.80 M/mcL LAB HEMETOLOGY METHOD 04/03/2024 11:05 AM [facility] Hemoglobin 9.8(L) 11.5 - 16.0 g/dL LAB HEMETOLOGY METHOD 04/03/2024 11:05 AM [facility] Hematocrit 29.3(L) 35.0 - 47.0 % LAB HEMETOLOGY METHOD 04/03/2024 11:05 AM [facility] MCV 88.5 79.0 - 98.0 FL LAB HEMETOLOGY METHOD 04/03/2024 11:05 AM EST [facility] MCH 29.6 27.0 - 32.0 pcg LAB HEMETOLOGY METHOD 04/03/2024 11:05 AM [facility] MCHC 33.4 32.0 - 37.0 g/dL LAB HEMETOLOGY METHOD 04/03/2024 11:05 AM EST [facility] RDW 17.3(H) 11.0 - 15.0 % LAB HEMETOLOGY METHOD 04/03/2024 11:05 AM [facility] Platelets 565(H) 130 - 400 K/mcL LAB HEMETOLOGY METHOD 04/03/2024 11:05 AM [facility] MPV 9.8 7.0 - 11.0 FL LAB HEMETOLOGY METHOD 04/03/2024 11:05 AM EST [facility] NRBC 0.0 <1.0 % LAB HEMETOLOGY METHOD 04/03/2024 11:05 AM [facility] NRBC Absolute 0.00 <0.10 K/mcL LAB HEMETOLOGY METHOD 04/03/2024 11:05 AM [facility] Blood Venous blood specimen / Unknown Venipuncture / Unknown 04/03/2024 8:41 AM EST 04/03/2024 10:46 AM EST Mookie Donovan MD LAB BLOOD ORDERABL ES [facility] [address] [place] [address], documented in this encounter Visit Diagnoses Diagnosis Anemia, unspecified documented in this encounter Additional Health Concerns Infection Onset Date Last Indicated Resolved Time ESBL 04/25/2024 04/25/2024 documented as of this encounter Care Teams Senior Hydrogeologist Relationship Specialty Start Date End Date Melissa Shannon MD [address] [facility] [place] [address] PCP - General Internal Medicine 04/02/13 documented as of this encounter
== END 2024-05-25 12:23 | disposition home or self-care (01) ==
PROVIDERS: PCP Internal Medicine; Visit Provider Physician Assistant
DX: Z87.81 Personal history of (healed) traumatic fracture (principal); S92.352A Displaced fracture of fifth metatarsal bone, left foot, initial encounter for closed fracture
CPT/HCPCS: 99024

== ENCOUNTER → 2024-05-25 10:09 | Outpatient (BNV) | payer MEDICARE, MEDICAID, SELFPAY | PROVIDERS: Visit Provider Specialist | DX: S42.301A Unspecified fracture of shaft of humerus, right arm, initial encounter for closed fracture (principal); M79.672 Pain in left foot | CPT/HCPCS: 73060; 73630 ==

== ENCOUNTER 2024-05-25 10:15 | Outpatient (REF) | payer MEDICARE, MEDICAID, SELFPAY ==
--- NOTE | ~2024-05-25 | XR_ITS ---
CLINICAL HISTORY: M79.672 - Pain in left foot 3 view left foot Comparison: None Findings: There is a healed little toe metatarsal fracture. There are no acute fractures. No dislocations. No significant loss of joint space, osteophytes, or erosions. No ankle effusion. No radiopaque foreign body. IMPRESSION: 1. No acute findings. This document has been electronically signed by: Buddy Liomn MD on 05/25/2024 18:09:31
--- NOTE | ~2024-05-25 | XR_ITS ---
CLINICAL HISTORY: S42.301A - Unspecified fracture of shaft of humerus, right arm, initial ... 2 view right humerus Comparison: None Findings: There is a mid humeral fracture with overlap of the fracture fragments. 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 No radiopaque foreign body. IMPRESSION: 1. Impacted humeral fracture This document has been electronically signed by: Buddy Limon MD on 05/25/2024 18:07:42
== END 2024-05-25 10:16 | disposition home or self-care (01) ==
LOC: HO.HOSX 10:15
PROVIDERS: Visit Provider Physician Assistant
DX: M79.672 Pain in left foot (principal); S42.301A Unspecified fracture of shaft of humerus, right arm, initial encounter for closed fracture; Z87.81 Personal history of (healed) traumatic fracture; S92.353A Displaced fracture of fifth metatarsal bone, unspecified foot, initial encounter for closed fracture
CPT/HCPCS: 73060; 73630; 99212

== ENCOUNTER 2024-06-05 07:00 | Outpatient (REF) | payer MEDICARE, MEDICAID, SELFPAY ==
--- OUTSIDE RECORDS SUMMARY | 2024-06-05 07:04 | XMS_ITS | Encounter Summary ---
Author Organization Jessi [facility] [place] [address] Care Team Providers Care Extractor Operator Solvent Process Name Role Phone Melissa Shannon MD Primary Care Provider Encounter Details Date Type Department Care Team (Late st Contact Info) Description 04/26/2024 Lab Requisition [facility] - Main Lab 299 [facility] [place] [phone] Mookie Donovan MD [address] [place] [address] Dysuria Social History Tobacco Use Types Packs/Day Years Used Date Smoking Tobacco: Former Smokeless Tobacco: Never Alcohol Use Standard Drinks/Week Comments Not Currently 0 (1 standard drink = 0.6 oz pur e alcohol) Comments Unknown Sex and Gender Information Value Date Recorded Sex Assigned at Not on file Legal Sex Female 8:07 PM EST Gender Identity Not on file Sexual Orientation Not on file documented as of this encounter Plan of Treatment Upcoming Encounters Date Type Department Care Team (Late st Contact Info) Description 07/19/2024 3:30 PM EDT Ancillary Procedure [facility] Cardiology [facility] [address] [place] [address] 07/31/2024 10:20 AM EDT Office Visit [facility] Cardiology [facility] - [address] [place] [phone] Sis Dowell MD [address] [place] [address] documented as of this encounter Procedures Procedure Name Priority Date/Time Associated Diagnosis Comments URINALYSIS WITH REFLEX MICROSCOPIC Routine 04/25/2024 1:30 PM EST Dysuria URINALYSIS WITH REFLEX MICROSCOPIC Routine 04/25/2024 1:30 PM EST Dysuria CULTURE URINE Routine 04/25/2024 1:30 PM EST Dysuria documented in this encounter Results * (ABNORMAL) Urinalysis with reflex microscopic (04/25/2024 1:30 PM EST) Specific [place] Urine 1.028 1.003 - 1.030 LAB URINALYSIS - AUTOMATED METHOD 04/26/2024 9:42 AM [facility] pH, Urine 5.5 5.0 - 8.0 pH LAB URINALYSIS - AUTOMATED METHOD 04/26/2024 9:42 AM [facility] Leukocytes, Urine Moderate(A) Negative LAB URINALYSIS - AUTOMATED METHOD 04/26/2024 9:42 AM [facility] Nitrite, Urine Negative Negative LAB URINALYSIS - AUTOMATED METHOD 04/26/2024 9:42 AM [facility] Protein, Urine 100(A) <=Trace mg/dL LAB URINALYSIS - AUTOMATED METHOD 04/26/2024 9:42 AM [facility] Glucose, Urine Negative Negative mg/dL LAB URINALYSIS - AUTOMATED METHOD 04/26/2024 9:42 AM [facility] Ketones, Urine Trace(A) Negative mg/dL LAB URINALYSIS - AUTOMATED METHOD 04/26/2024 9:42 AM [facility] Urobilinogen , Urine 1.0 0.2 - 1.0 mg/dL LAB URINALYSIS - AUTOMATED METHOD 04/26/2024 9:42 AM [facility] Bilirubin, Urine Negative Negative LAB URINALYSIS - AUTOMATED METHOD 04/26/2024 9:42 AM [facility] Blood, Urine Moderate(A) Negative LAB URINALYSIS - AUTOMATED METHOD 04/26/2024 9:42 AM [facility] RBC, Urine 7.4(H) 0 - 4 /HPF LAB URINALYSIS - AUTOMATED METHOD 04/26/2024 9:42 AM [facility] WBC, Urine 700.4(H) 0 - 4 /HPF LAB URINALYSIS - AUTOMATED METHOD 04/26/2024 9:42 AM [facility] Squamous Epithelial, Urine 48 0 - 60 /LPF LAB URINALYSIS - AUTOMATED METHOD 04/26/2024 9:42 AM [facility] Bacteria, Urine Many(A) Negative /HPF LAB URINALYSIS - AUTOMATED METHOD 04/26/2024 9:42 AM [facility] Hyaline Casts, Urine 1.0 0 - 3 /LPF LAB URINALYSIS - AUTOMATED METHOD 04/26/2024 9:42 AM [facility] Urine Urine specimen obtained by clean catch procedure / Unknown 04/25/2024 1:30 PM EST 04/26/2024 8:19 AM EST Mookie Donovan MD LAB URINE ORDERABLES Final Result [facility] [address] [place] [address], * (ABNORMAL) Culture urine (04/25/2024 1:30 PM EST) Culture, Urine >100,000 CFU/mL Escherichia coli ESBL(A) WARREN 04/30/2024 9:38 AM [facility] Comment: THIS ORGANISM IS POSITIVE FOR [...] pneumoniae ESBL(A) WARREN 04/30/2024 9:38 AM EST [facility] Comment: THIS ORGANISM IS POSITIVE [...] 1:30 PM EST 04/26/2024 8:19 AM EST [facility] - 04/30/2024 9:38 AM EST Additional colony types present in insignificant amounts. Organism Antibiotic Method Susceptibility Escherichia coli ESBL Amoxicillin/Clavulanate WARREN 8 ug/ml: Susceptible Escherichia coli ESBL Ampicillin/Sulbactam WARREN >=32 ug/ml: Resistant Escherichia coli ESBL Piperacillin/Tazobactam WARREN <=4 ug/ml: Susceptible Escherichia coli ESBL Cefazolin (Urine) WARREN >=32 ug/ml: Resistant Escherichia coli ESBL Cefoxitin WRAREN <=4 ug/ml: Susceptible Escherichia coli ESBL Ceftazidime [...] ESBL Trimethoprim/Sulfamethoxazo le WARREN >=320 ug/ml: Resistant us Mookie Donovan MD LAB MICROBIOLOGY - GENERAL ORDERABLES Final Result Performing Organization Address City/State/[facility] Co de Phone Number [facility] ([facility]) [facility] [address] [place] [address], documented in this encounter Visit Diagnoses Diagnosis Dysuria documented in this encounter Additional Health Concerns Infection Onset Date Last Indicated Resolved Time ESBL 04/25/2024 04/25/2024 documented as of this encounter Care Teams Extractor Operator Solvent Process Relationship Specialty Start Date End Date Melissa Shannon MD [address] [place] [address] PCP - General Internal Medicine 04/02/13 documented as of this encounter
--- OUTSIDE RECORDS SUMMARY | 2024-06-05 07:04 | XMS_ITS | Encounter Summary ---
Author Organization Jessi [place] [address] Care Team Providers Care Ux Research Associate Name Role Phone Melissa Shannon MD Primary Care Provider [phone] Encounter Details Date Type Department Care Team (Late st Contact Info) Description 04/16/2024 Lab Requisition [facility] - Main Lab 299 [facility] [place] [phone] Mookie Donovan MD [address] [place] [address] Anemia, unspecified Social History Tobacco Use Types [...] EDT Ancillary Procedure [facility] Cardiology [facility] [address] [place] [address] 07/31/2024 10:20 AM EDT Office Visit [facility] Cardiology [facility] [address] [place] [phone] Sis Dowell MD [address] [place] [address] documented as of this encounter Procedures Procedure Name Priority Date/Time Associated Diagnosis Comments COMPLETE BLOOD COUNT Routine 04/17/2024 7:30 AM EST Anemia, unspecified BASIC METABOLIC PANEL Routine 04/17/2024 7:30 AM EST Anemia, unspecified documented in this encounter Results * (ABNORMAL) Basic metabolic panel (04/17/2024 7:30 AM EST) Sodium 133 133 - 145 mmol/L LAB CHEMISTRY METHOD 04/17/2024 10:43 AM [facility] Potassium 4.1 3.5 - 5.5 mmol/L LAB CHEMISTRY METHOD 04/17/2024 10:43 AM [facility] Chloride 95(L) 96 - 110 mmol/L LAB CHEMISTRY METHOD 04/17/2024 10:43 AM [facility] CO2 28 21 - 32 mmol/L LAB CHEMISTRY METHOD 04/17/2024 10:43 AM [facility] Anion Gap 10 3 - 11 LAB CHEMISTRY METHOD 04/17/2024 10:43 AM [facility] Glucose 126(H) 70 - 100 mg/dL LAB CHEMISTRY METHOD 04/17/2024 10:43 AM [facility] BUN 10 5 - 25 mg/dL LAB CHEMISTRY METHOD 04/17/2024 10:43 AM [facility] Creatinine 0.59 0.50 - 1.10 mg/dL LAB CHEMISTRY METHOD 04/17/2024 10:43 AM [facility] eGFR 90 >=60 mL/min/1. 73m2 LAB CHEMISTRY METHOD 04/17/2024 10:43 AM [facility] Comment:Calculation based on the??Chronic Kidney Disease Epidemiology Collaboration (CKD-EPI) equation refit??without adjustment for race. BUN/Creatinine Ratio 16.9 LAB CHEMISTRY METHOD 04/17/2024 10:43 AM [facility] Calcium 8.8 8.5 - 10.5 mg/dL LAB CHEMISTRY METHOD 04/17/2024 10:43 AM [facility] Blood Venous blood specimen / Unknown Venipuncture / Unknown 04/17/2024 7:30 AM EST 04/17/2024 10:07 AM EST Mookie Donovan MD LAB BLOOD ORDERABLES Final Result [facility] [address] [place] [address], * (ABNORMAL) Complete blood count (04/17/2024 7:30 AM EST) WBC 10.2 4.8 - 10.8 K/mcL LAB HEMETOLOGY METHOD 04/17/2024 10:33 AM [facility] RBC 3.70(L) 3.80 - 4.80 M/mcL LAB HEMETOLOGY METHOD 04/17/2024 10:33 AM [facility] Hemoglobin 10.0(L) 11.5 - 16.0 g/dL LAB HEMETOLOGY METHOD 04/17/2024 10:33 AM [facility] Hematocrit 32.0(L) 35.0 - 47.0 % LAB HEMETOLOGY METHOD 04/17/2024 10:33 AM [facility] MCV 87.2 79.0 - 98.0 FL LAB HEMETOLOGY METHOD 04/17/2024 10:33 AM [facility] MCH 27.2 27.0 - 32.0 pcg LAB HEMETOLOGY METHOD 04/17/2024 10:33 AM [facility] MCHC 31.3(L) 32.0 - 37.0 g/dL LAB HEMETOLOGY METHOD 04/17/2024 10:33 AM EST [facility] RDW 16.4(H) 11.0 - 15.0 % LAB HEMETOLOGY METHOD 04/17/2024 10:33 AM EST [facility] Platelets 191 130 - 400 K/mcL LAB HEMETOLOGY METHOD 04/17/2024 10:33 AM EST [facility] MPV 10.9 7.0 - 11.0 FL LAB HEMETOLOGY METHOD 04/17/2024 10:33 AM EST [facility] NRBC 0.0 <1.0 % LAB HEMETOLOGY METHOD 04/17/2024 10:33 AM EST [facility] NRBC Absolute 0.00 <0.10 K/mcL LAB HEMETOLOGY METHOD 04/17/2024 10:33 AM [facility] Blood Venous blood specimen / Unknown Venipuncture / Unknown 04/17/2024 7:30 AM EST 04/17/2024 10:07 AM EST us Mookie Donovan MD LAB BLOOD ORDERABLES Final Result [facility] [address] [place] [address], documented in this encounter Visit Diagnoses Diagnosis Anemia, unspecified documented in this encounter Additional Health Concerns Infection Onset Date Last Indicated Resolved Time ESBL 04/25/2024 04/25/2024 documented as of this encounter Care Teams Ux Research Associate Relationship Specialty Start Date End Date Melissa Shannon MD [address] [place] [address] PCP - General Internal Medicine 04/02/13 documented as of this encounter
--- OUTSIDE RECORDS SUMMARY | 2024-06-05 07:04 | XMS_ITS | Encounter Summary ---
Author Organization Jessi [facility] [place] [address] Care Team Providers Care Welder Fitter Helper Name Role Phone Melissa Shannon MD Primary Care Provider Encounter Details Date Type Department Care Team (Late st Contact Info) Description 03/29/2024 Lab Requisition [facility] - Main Lab 299 [facility] [place] [phone] Mookie Donovan MD [address] [place] [address] Unspecified atrial fibrillation (CMS/HCC); Type 2 diabetes [...] 07/19/2024 3:30 PM EDT Ancillary Procedure [facility] [address] [place] [address] 07/31/2024 10:20 AM EDT Office Visit [facility] [address] [place] [address] Sis Dowell MD [address] [facility] [address] [place] [address] documented as of this encounter Procedures Procedure [...] Hold for add-ons. 03/29/2024 11:01 AM EST [facility] Comment:Auto resulted. Blood Venous blood specimen / Unknown 03/29/2024 6:51 AM EST 03/29/2024 9:08 AM EST us Mookie Donvoan MD LAB BLOOD ORDERABLES Final Result [facility]) [facility] [address] [place] [address], * (ABNORMAL) CBC auto differential (03/29/2024 6:51 AM EST) [facility] WBC 16.1(H) 4.8 - 10.8 K/mcL LAB HEMETOLOGY METHOD 03/29/2024 9:23 AM [facility] RBC 3.20(L) 3.80 - 4.80 M/mcL LAB HEMETOLOGY METHOD 03/29/2024 9:23 AM [facility] Hemoglobin 9.1(L) 11.5 - 16.0 g/dL LAB HEMETOLOGY METHOD 03/29/2024 9:23 AM [facility] Hematocrit 28.3(L) 35.0 - 47.0 % LAB HEMETOLOGY METHOD 03/29/2024 9:23 AM [facility] MCV 88.2 79.0 - 98.0 FL LAB HEMETOLOGY METHOD 03/29/2024 9:23 AM [facility] MCH 28.3 27.0 - 32.0 pcg LAB HEMETOLOGY METHOD 03/29/2024 9:23 AM [facility] MCHC 32.2 32.0 - 37.0 g/dL LAB HEMETOLOGY METHOD 03/29/2024 9:23 AM [facility] RDW 17.6(H) 11.0 - 15.0 % LAB HEMETOLOGY METHOD 03/29/2024 9:23 AM [facility] Platelets 482(H) 130 - 400 K/mcL LAB HEMETOLOGY METHOD 03/29/2024 9:23 AM [facility] MPV 9.2 7.0 - 11.0 FL LAB HEMETOLOGY METHOD 03/29/2024 9:23 AM [facility] NRBC 0.0 <1.0 % LAB HEMETOLOGY METHOD 03/29/2024 9:23 AM [facility] NRBC Absolute 0.00 <0.10 K/mcL LAB HEMETOLOGY METHOD 03/29/2024 9:23 AM [facility] Neutrophils Relative 82.2 % LAB HEMETOLOGY METHOD 03/29/2024 9:23 AM [facility] Lymphocytes Relative 8.3 % LAB HEMETOLOGY METHOD 03/29/2024 9:23 AM [facility] Monocytes Relative 7.4 % LAB HEMETOLOGY METHOD 03/29/2024 9:23 AM [facility] Eosinophils Relative 0.3 % LAB HEMETOLOGY METHOD 03/29/2024 9:23 AM [facility] Basophils Relative 0.2 % LAB HEMETOLOGY METHOD 03/29/2024 9:23 AM [facility] Immature Granulocytes Relative 1.6 % LAB HEMETOLOGY METHOD 03/29/2024 9:23 AM [facility] Neutrophils Absolute 13.23(H) 1.50 - 7.00 K/mcL LAB HEMETOLOGY METHOD 03/29/2024 9:23 AM [facility] Lymphocytes Absolute 1.33 1.00 - 5.00 K/mcL LAB HEMETOLOGY METHOD 03/29/2024 9:23 AM [facility] Monocytes Absolute 1.19(H) 0.20 - 1.00 K/mcL LAB HEMETOLOGY METHOD 03/29/2024 9:23 AM [facility] Eosinophils Absolute 0.05 0.00 - 0.50 K/mcL LAB HEMETOLOGY METHOD 03/29/2024 9:23 AM [facility] Basophils Absolute 0.03 0.00 - 0.20 K/mcL LAB HEMETOLOGY METHOD 03/29/2024 9:23 AM [facility] Immature Granulocytes Absolute 0.25(H) 0.00 - 0.03 K/mcL LAB HEMETOLOGY METHOD 03/29/2024 9:23 AM EST [facility] Blood Venous blood specimen / Unknown Venipuncture / Unknown 03/29/2024 6:51 AM EST 03/29/2024 8:51 AM EST us Mookie Donovan MD LAB BLOOD ORDERABLES Final Result Performing Organization Address City/[facility]/ZIP Co de Phone Number [facility] [address] [place] [address], [place] [phone] * Hemoglobin A1c (03/29/2024 6:51 AM EST) Pathologist [facility] Hemoglobin A1C 6.1 <6.5 % LAB CHEMISTRY METHOD 03/29/2024 11:40 AM EST [facility] Mean Bld Glu Estim. 128 mg/dL LAB CHEMISTRY METHOD 03/29/2024 11:40 AM EST [facility] Blood Venous blood specimen / Unknown Venipuncture / Unknown 03/29/2024 6:51 AM EST 03/29/2024 8:51 AM EST us Mookie Donovan MD LAB BLOOD ORDERABLES Final Result Performing Organization Address [facility]/ZIP Co de Phone Number [facility] [address] [place] [address], [place] [phone] * (ABNORMAL) Comprehensive metabolic panel (03/29/2024 6:51 AM EST) [facility] Sodium 141 133 - 145 mmol/L LAB CHEMISTRY METHOD 03/29/2024 9:50 AM EST [facility] Potassium 3.0(L) 3.5 - 5.5 mmol/L LAB CHEMISTRY METHOD 03/29/2024 9:50 AM EST [facility] Chloride 107 96 - 110 mmol/L LAB CHEMISTRY METHOD 03/29/2024 9:50 AM EST [facility] CO2 24 21 - 32 mmol/L LAB CHEMISTRY METHOD 03/29/2024 9:50 AM [facility] Anion Gap 10 3 - 11 LAB CHEMISTRY METHOD 03/29/2024 9:50 AM [facility] Glucose 134(H) 70 - 100 mg/dL LAB CHEMISTRY METHOD 03/29/2024 9:50 AM [facility] BUN 13 5 - 25 mg/dL LAB CHEMISTRY METHOD 03/29/2024 9:50 AM [facility] Creatinine 0.46(L) 0.50 - 1.10 mg/dL LAB CHEMISTRY METHOD 03/29/2024 9:50 AM [facility] eGFR 95 >=60 mL/min/1. 73m2 LAB CHEMISTRY METHOD 03/29/2024 9:50 AM [facility] Comment:Calculation based on the??Chronic Kidney Disease Epidemiology Collaboration (CKD-EPI) equation refit??without adjustment for race. BUN/Creatinine Ratio 28.3 LAB CHEMISTRY METHOD 03/29/2024 9:50 AM [facility] Calcium 8.4(L) 8.5 - 10.5 mg/dL LAB CHEMISTRY METHOD 03/29/2024 9:50 AM [facility] AST (SGOT) 17 10 - 42 unit/L LAB CHEMISTRY METHOD 03/29/2024 9:50 AM [facility] ALT (SGPT) 13 10 - 60 unit/L LAB CHEMISTRY METHOD 03/29/2024 9:50 AM [facility] Alkaline Phosphatase 161(H) 42 - 121 unit/L LAB CHEMISTRY METHOD 03/29/2024 9:50 AM [facility] Total Protein 5.5(L) 6.0 - 8.0 g/dL LAB CHEMISTRY METHOD 03/29/2024 9:50 AM [facility] Albumin 2.0(L) 3.2 - 5.0 g/dL LAB CHEMISTRY METHOD 03/29/2024 9:50 AM [facility] Total Bilirubin 0.4 0.0 - 1.4 mg/dL LAB CHEMISTRY METHOD 03/29/2024 9:50 AM EST [facility] Blood Venous blood specimen / Unknown Venipuncture / Unknown 03/29/2024 6:51 AM EST 03/29/2024 8:51 AM EST us Mookie Donovan MD LAB BLOOD ORDERABLES Final Result [facility] ([facility] [address] [place] [address], documented in this encounter Visit Diagnoses Diagnosis Unspecified atrial fibrillation (CMS/HCC) Type 2 diabetes mellitus without complications (CMS/HCC) Anemia, unspecified documented in this encounter Additional Health Concerns Infection Onset Date Last Indicated Resolved Time ESBL 04/25/2024 04/25/2024 documented as of this encounter Care Teams Welder Fitter Helper Relationship Specialty Start Date End Date Melissa Shannon MD [address] [place] [address] PCP - General Internal Medicine 04/02/13 documented as of this encounter
--- OUTSIDE RECORDS SUMMARY | 2024-06-05 07:04 | XMS_ITS | Encounter Summary ---
Author Organization Jessi [facility] [place] [address] Care Team Providers Care Coach Tour Driver Name Role Phone Melissa Shannon MD Primary Care Provider [phone] Encounter Details Date Type Department Care Team (Late st Contact Info) Description 04/06/[address] [facility] - Main Lab [address] [facility] [place] [phone] Mookie Donovan MD [address] [place] [address] Unspecified dementia, unspecified severity, without behavioral disturbance, [...] Description 07/19/2024 3:30 PM EDT Ancillary Procedure [facility] Cardiology [facility] [address] [place] [phone] 07/31/2024 10:20 AM EDT Office Visit [facility] - [address] [address] Sis Dowell MD 300 [facility] [address] [place] [address] documented as of this encounter Procedures Procedure Name Priority Date/Time Associated Diagnosis Comments CLOSTRIDIUM DIFFICILE TOXIN Routine 04/05/2024 5:00 PM EST Unspecified dementia, unspecified severity, without behavioral disturbance, psychotic disturbance, mood disturbance, and anxiety (CMS/HCC) Unspecified infectious disease documented in this encounter Results * Clostridium difficile toxin (04/05/2024 5:00 PM EST) Clostridium difficile GDH Antigen Negative Negative 04/06/2024 1:38 PM EST [facility] C difficile Toxins A+B, EIA Negative Negative 04/06/2024 1:38 PM EST [facility] Comment:NEGATIVE FOR TOXIN P RODUCING CLOSTRIDIOIDES DIFFICILE, NO ADDITIONAL TESTING IS NECESSARY. Stool Rectum structure / Unknown 04/05/2024 5:00 PM EST 04/06/2024 9:25 AM EST Mookie Donovan MD LAB MICROBIOLOGY - GENERAL ORDERABLES Final Result [facility] [address] [place] [address], documented in this encounter Visit Diagnoses Diagnosis Unspecified dementia, unspecified severity, without behavioral disturbance, psychotic disturbance, mood disturbance, and anxiety (CMS/HCC) Unspecified infectious disease documented in this encounter Additional Health Concerns Infection Onset Date Last Indicated Resolved Time ESBL 04/25/2024 04/25/2024 documented as of this encounter Care Teams Coach Tour Driver Relationship Specialty Start Date End Date Melissa Shannon MD [address] [facility] [place] [address] PCP - General Internal Medicine 04/02/13 documented as of this encounter
--- OUTSIDE RECORDS SUMMARY | 2024-06-05 07:04 | XMS_ITS | Encounter Summary ---
Author Organization [facility] [place] [address] Care Team Providers Care Manager Monitoring Name Role Phone Melissa Shannon MD Primary Care Provider Encounter Details Date Type Department Care Team (Late st Contact Info) Description 04/09/2024 Lab Requisition [facility] - Main Lab [address] [facility] [place] [id number] Mookie Donovan MD [address] [place] [address] Anemia, unspecified Social History Tobacco Use Types [...] Description 07/19/2024 3:30 PM EDT Ancillary Procedure [facility] Cardiology [facility] [address] [place] [address] 07/31/2024 10:20 AM EDT Office Visit [facility] Cardiology [facility] [address] [place] [phone] Sis Dowell MD [address] [place] [address] documented as of this encounter Procedures Procedure Name Priority Date/Time Associated Diagnosis Comments COMPLETE BLOOD COUNT Routine 04/10/2024 5:20 AM EST Anemia, unspecified BASIC METABOLIC PANEL Routine 04/10/2024 5:20 AM EST Anemia, unspecified documented in this encounter Results * (ABNORMAL) Basic metabolic panel (04/10/2024 5:20 AM EST) Sodium 139 133 - 145 mmol/L LAB CHEMISTRY METHOD 04/10/2024 8:03 AM [facility] Potassium 3.8 3.5 - 5.5 mmol/L LAB CHEMISTRY METHOD 04/10/2024 8:03 AM [facility] Chloride 104 96 - 110 mmol/L LAB CHEMISTRY METHOD 04/10/2024 8:03 AM [facility] CO2 31 21 - 32 mmol/L LAB CHEMISTRY METHOD 04/10/2024 8:03 AM [facility] Anion Gap 4 3 - 11 LAB CHEMISTRY METHOD 04/10/2024 8:03 AM [facility] Glucose 123(H) 70 - 100 mg/dL LAB CHEMISTRY METHOD 04/10/2024 8:03 AM [facility] BUN 11 5 - 25 mg/dL LAB CHEMISTRY METHOD 04/10/2024 8:03 AM [facility] Creatinine 0.44(L) 0.50 - 1.10 mg/dL LAB CHEMISTRY METHOD 04/10/2024 8:03 AM [facility] eGFR 96 >=60 mL/min/1. 73m2 LAB CHEMISTRY METHOD 04/10/2024 8:03 AM [facility] Comment:Calculation based on the??Chronic Kidney Disease Epidemiology Collaboration (CKD-EPI) equation refit??without adjustment for race. BUN/Creatinine Ratio 25.0 LAB CHEMISTRY METHOD 04/10/2024 8:03 AM [facility] Calcium 8.1(L) 8.5 - 10.5 mg/dL LAB CHEMISTRY METHOD 04/10/2024 8:03 AM [facility] Blood Venous blood specimen / Unknown Venipuncture / Unknown 04/10/2024 5:20 AM EST 04/10/2024 7:34 AM EST Mookie Donovan MD LAB BLOOD ORDERABLES Final Result [facility] [address] [place] [address], * (ABNORMAL) Complete blood count (04/10/2024 5:20 AM EST) WBC 10.3 4.8 - 10.8 K/mcL LAB HEMETOLOGY METHOD 04/10/2024 7:58 AM [facility] RBC 3.40(L) 3.80 - 4.80 M/mcL LAB HEMETOLOGY METHOD 04/10/2024 7:58 AM [facility] Hemoglobin 9.2(L) 11.5 - 16.0 g/dL LAB HEMETOLOGY METHOD 04/10/2024 7:58 AM [facility] Hematocrit 30.2(L) 35.0 - 47.0 % LAB HEMETOLOGY METHOD 04/10/2024 7:58 AM [facility] MCV 89.9 79.0 - 98.0 FL LAB HEMETOLOGY METHOD 04/10/2024 7:58 AM [facility] MCH 27.4 27.0 - 32.0 pcg LAB HEMETOLOGY METHOD 04/10/2024 7:58 AM [facility] MCHC 30.5(L) 32.0 - 37.0 g/dL LAB HEMETOLOGY METHOD 04/10/2024 7:58 AM EST [facility] RDW 16.9(H) 11.0 - 15.0 % LAB HEMETOLOGY METHOD 04/10/2024 7:58 AM EST [facility] Platelets 330 130 - 400 K/mcL LAB HEMETOLOGY METHOD 04/10/2024 7:58 AM EST [facility] MPV 10.9 7.0 - 11.0 FL LAB HEMETOLOGY METHOD 04/10/2024 7:58 AM EST [facility] NRBC 0.0 <1.0 % LAB HEMETOLOGY METHOD 04/10/2024 7:58 AM EST [facility] NRBC Absolute 0.00 <0.10 K/mcL LAB HEMETOLOGY METHOD 04/10/2024 7:58 AM [facility] Blood Venous blood specimen / Unknown Venipuncture / Unknown 04/10/2024 5:20 AM EST 04/10/2024 7:34 AM EST Mookie Donovan MD LAB BLOOD ORDERABLES Final Result [facility] [address] [place] [address], documented in this encounter Visit Diagnoses Diagnosis Anemia, unspecified documented in this encounter Additional Health Concerns Infection Onset Date Last Indicated Resolved Time ESBL 04/25/2024 04/25/2024 documented as of this encounter Care Teams Manager Monitoring Relationship Specialty Start Date End Date Melissa Shannon MD [address] [place] [address] PCP - General Internal Medicine 04/02/13 documented as of this encounter
--- OUTSIDE RECORDS SUMMARY | 2024-06-05 07:04 | XMS_ITS | Clinical Summary ---
Author Organization [address] [facility] Address [address] [place] [address] Phone Care Team Providers Care Barista Name Role Phone Melissa Shannon MD Primary Care Provider Allergies Active Allergy Reactions Criticality Noted Date Comments Aspirin 08/12/2020 Enoxaparin 08/12/2020 Heparin 08/12/2020 Ibuprofen 08/12/2020 Iodinated Contrast Media 12/22/2022 Iv Contrast Dye Meperidine Hcl 08/12/2020 Oxycodone 08/12/2020 Oxycodone-Acetaminophen 08/12/2020 Penicillins 08/12/2020 Sulfa (Sulfonamide Antibiotics) 07/25 Warfarin 08/12/2020 Medications acetaminophen (TYLENOL) 500 mg tablet Take 500 [...] mcg (1,000 unit) tablet Take by mouth. Active diphenhydrAMINE (BENADRYL) 25 mg capsule Take 1 [...] 50 mg by mouth daily. Active magnesium aspart,citrate, oxide (Triple Magnesium Complex) 400 mg magnesium capsule Take 1 capsule by mouth daily. Active metoprolol succinate (TOPROL-XL) 50 mg 24 hr tablet TAKE 1 AND 1/2 TABLETS BY MOUTH DAILY 01/27/2024 Active mometasone (NASONEX) 50 mcg/actuation nasal spray 1 [place] by Nasal route at bedtime. Active montelukast [...] into the lungs 2 times daily. Active sitagliptin-met formin (Janumet) 50-500 mg per tablet Take 1 [...] her to speak with her PCP and/your project assistant given her recent COVID infection as well [...] Department Care Team Description 04/26/2024 Lab Requisition [facility] Main Lab [address] [place] [address] Mookie Donovan MD Anemia, unspecified; Type 2 diabetes mellitus without complications ([facility]) 04/26/2024 Lab Requisition [facility] Main Lab [address] [place] [address] Mookie Donovan MD Dysuria 04/16/2024 Lab Requisition [facility] Main Lab [address] [place] [address] Mookie Donovan MD Anemia, unspecified 04/09/[address] [facility] Lab [address] [place] [address] Mookie Donovan MD Anemia, unspecified 04/06/[address] [facility] Lab [address] [place] [address] Mookie Donovan MD Unspecified dementia, unspecified severity, without behavioral disturbance, psychotic disturbance, mood disturbance, and anxiety (CMS/HCC); Unspecified infectious disease 04/03/2024 Telephone [facility] [address] [place] [address] Sandrita Cox NP 04/02/[address] [facility] Lab [address] [place] [address] Mookie Donovan MD Anemia, unspecified 03/29/[address] [facility] [address] [place] [address] Mookie Donovan MD Unspecified atrial [...] Description 07/19/2024 3:30 PM EDT Ancillary Procedure [facility] Cardiology [facility] [address] [place] [address] 07/31/2024 10:20 AM EDT Office Visit [facility] [address] [place] [address] Sis Dowell MD [address] [place] [address] Health Maintenance Due Date Last Done Comments Pneumococcal Vaccine: 50+ Years (1 of 2 - PCV) 1946 [...] of4 resultswithin the time period is included. WBC 10.3 4.8 - 10.8 K/mcL LAB HEMETOLOGY METHOD 04/26/2024 8:13 AM [facility] RBC 3.60(L) 3.80 - 4.80 M/mcL LAB HEMETOLOGY METHOD 04/26/2024 8:13 AM [facility] Hemoglobin 9.7(L) 11.5 - 16.0 g/dL LAB HEMETOLOGY METHOD 04/26/2024 8:13 AM [facility] LAB Hematocrit 31.6(L) 35.0 - 47.0 % LAB HEMETOLOGY METHOD 04/26/2024 8:13 AM [facility] LAB MCV 88.3 79.0 - 98.0 FL LAB HEMETOLOGY METHOD 04/26/2024 8:13 AM [facility] LAB MCH 27.1 27.0 - 32.0 pcg LAB HEMETOLOGY METHOD 04/26/2024 8:13 AM [facility] LAB MCHC 30.7(L) 32.0 - 37.0 g/dL LAB HEMETOLOGY METHOD 04/26/2024 8:13 AM [facility] LAB RDW 17.0(H) 11.0 - 15.0 % LAB HEMETOLOGY METHOD 04/26/2024 8:13 AM [facility] Platelets 215 130 - 400 K/mcL LAB HEMETOLOGY METHOD 04/26/2024 8:13 AM [facility] LAB MPV 10.8 7.0 - 11.0 FL LAB HEMETOLOGY METHOD 04/26/2024 8:13 AM [facility] NRBC 0.0 <1.0 % LAB HEMETOLOGY METHOD 04/26/2024 8:13 AM EST [facility] NRBC Absolute 0.00 <0.10 K/mcL LAB HEMETOLOGY METHOD 04/26/2024 8:13 AM EST [facility] Blood Venous blood specimen / Unknown Venipuncture / Unknown 04/26/2024 6:34 AM EST 04/26/2024 7:53 AM EST us Mookie Donovan MD LAB BLOOD ORDERABLES Final Result Performing Organization Address [facility]/ZIP Co de Phone Number [facility] [address] [place] [address], [place] [phone] * (ABNORMAL) Triiodothyronine free (04/26/2024 6:34 AM EST) T3, Free 223(L) 230 - 420 pcg/dL LAB CHEMISTRY METHOD 04/26/2024 8:47 AM EST [facility] Blood Venous blood specimen / Unknown Venipuncture / Unknown 04/26/2024 6:34 AM EST 04/26/2024 7:53 AM EST us Mookie Donovan MD LAB BLOOD ORDERABLES Final Result Performing Organization Address [facility]/ZIP Co de Phone Number [facility] [address] [place] [address], [place] [phone] * (ABNORMAL) Thyroid stimulating hormone (04/26/2024 6:34 AM EST) TSH 6.69(H) 0.40 - 4.00 mcIU/mL LAB CHEMISTRY METHOD 04/26/2024 8:48 AM EST [facility] Blood Venous blood specimen / Unknown Venipuncture / Unknown 04/26/2024 6:34 AM EST 04/26/2024 7:53 AM EST us Mookie Donovan MD LAB BLOOD ORDERABLES Final Result Performing Organization Address City/[facility]/ZIP Co de Phone Number [facility] [address] [place] [address], * Thyroxine free (04/26/2024 6:34 AM EST) Free T4 1.25 0.70 - 1.80 ng/dL LAB CHEMISTRY METHOD 04/26/2024 8:46 AM EST [facility] Blood Venous blood specimen / Unknown Venipuncture / Unknown 04/26/2024 6:34 AM EST 04/26/2024 7:53 AM EST Mookie Donovan MD LAB BLOOD ORDERABLES Final Result Performing Organization Address [facility]/ZIP Co de Phone Number [facility] [address] [place] [address], * (ABNORMAL) Basic metabolic panel (04/26/2024 6:34 AM EST) Only the most recent of3 resultswithin the time period is included. [facility] Sodium 137 133 - 145 mmol/L LAB CHEMISTRY METHOD 04/26/2024 8:38 AM [facility] Potassium 3.7 3.5 - 5.5 mmol/L LAB CHEMISTRY METHOD 04/26/2024 8:38 AM [facility] Chloride 101 96 - 110 mmol/L LAB CHEMISTRY METHOD 04/26/2024 8:38 AM [facility] CO2 34(H) 21 - 32 mmol/L LAB CHEMISTRY METHOD 04/26/2024 8:38 AM [facility] Anion Gap 2(L) 3 - 11 LAB CHEMISTRY METHOD 04/26/2024 8:38 AM [facility] Glucose 133(H) 70 - 100 mg/dL LAB CHEMISTRY METHOD 04/26/2024 8:38 AM [facility] BUN 15 5 - 25 mg/dL LAB CHEMISTRY METHOD 04/26/2024 8:38 AM [facility] Creatinine 0.60 0.50 - 1.10 mg/dL LAB CHEMISTRY METHOD 04/26/2024 8:38 AM [facility] eGFR 89 >=60 mL/min/1. 73m2 LAB CHEMISTRY METHOD 04/26/2024 8:38 AM [facility] Comment:Calculation based on the??Chronic Kidney Disease Epidemiology Collaboration (CKD-EPI) equation refit??without adjustment for race. BUN/Creatinine Ratio 25.0 LAB CHEMISTRY METHOD 04/26/2024 8:38 AM [facility] Calcium 8.7 8.5 - 10.5 mg/dL LAB CHEMISTRY METHOD 04/26/2024 8:38 AM [facility] Blood Venous blood specimen / Unknown Venipuncture / Unknown 04/26/2024 6:34 AM EST 04/26/2024 7:53 AM EST us Mookie Donovan MD LAB BLOOD ORDERABLES Final Result [facility] [address] [place] [address], * (ABNORMAL) Urinalysis with reflex microscopic (04/25/2024 1:30 PM EST) Specific [place] Urine 1.028 1.003 - 1.030 LAB URINALYSIS - AUTOMATED METHOD 04/26/2024 9:42 AM [facility] pH, Urine 5.5 5.0 - 8.0 pH LAB URINALYSIS - AUTOMATED METHOD 04/26/2024 9:42 AM [facility] Leukocytes, Urine Moderate(A) Negative LAB URINALYSIS - AUTOMATED METHOD 04/26/2024 9:42 AM [facility] Nitrite, Urine Negative Negative LAB URINALYSIS - AUTOMATED METHOD 04/26/2024 9:42 AM [facility] Protein, Urine 100(A) <=Trace mg/dL LAB URINALYSIS - AUTOMATED METHOD 04/26/2024 9:42 AM [facility] Glucose, Urine Negative Negative mg/dL LAB URINALYSIS - AUTOMATED METHOD 04/26/2024 9:42 AM [facility] Ketones, Urine Trace(A) Negative mg/dL LAB URINALYSIS - AUTOMATED METHOD 04/26/2024 9:42 AM [facility] Urobilinogen , Urine 1.0 0.2 - 1.0 mg/dL LAB URINALYSIS - AUTOMATED METHOD 04/26/2024 9:42 AM [facility] Bilirubin, Urine Negative Negative LAB URINALYSIS - AUTOMATED METHOD 04/26/2024 9:42 AM [facility] Blood, Urine Moderate(A) Negative LAB URINALYSIS - AUTOMATED METHOD 04/26/2024 9:42 AM [facility] RBC, Urine 7.4(H) 0 - 4 /HPF LAB URINALYSIS - AUTOMATED METHOD 04/26/2024 9:42 AM [facility] WBC, Urine 700.4(H) 0 - 4 /HPF LAB URINALYSIS - AUTOMATED METHOD 04/26/2024 9:42 AM [facility] Squamous Epithelial, Urine 48 0 - 60 /LPF LAB URINALYSIS - AUTOMATED METHOD 04/26/2024 9:42 AM [facility] Bacteria, Urine Many(A) Negative /HPF LAB URINALYSIS - AUTOMATED METHOD 04/26/2024 9:42 AM [facility] Hyaline Casts, Urine 1.0 0 - 3 /LPF LAB URINALYSIS - AUTOMATED METHOD 04/26/2024 9:42 AM [facility] Urine Urine specimen obtained by clean catch procedure / Unknown 04/25/2024 1:30 PM EST 04/26/2024 8:19 AM EST Mookie Donovan MD LAB URINE ORDERABLES Final Result [facility] [address] [place] [address], * (ABNORMAL) Culture urine (04/25/2024 1:30 PM EST) Culture, Urine >100,000 CFU/mL Escherichia coli ESBL(A) WARREN 04/30/2024 9:38 AM EST [facility] Comment: THIS ORGANISM IS POSITIVE [...] pneumoniae ESBL(A) [place] 04/30/2024 9:38 AM EST [facility] Comment: THIS ORGANISM IS POSITIVE [...] 1:30 PM EST 04/26/2024 8:19 AM EST [facility] - 04/30/2024 9:38 AM EST [...] LAB MICROBIOLOGY - GENERAL ORDERABLES Final Result [facility] [address] [place] [address], * Clostridium difficile toxin (04/05/2024 5:00 PM EST) [facility] Clostridium difficile GDH Antigen Negative Negative 04/06/2024 1:38 PM EST [facility] C difficile Toxins A+B, EIA Negative Negative 04/06/2024 1:38 PM EST [facility] Comment:NEGATIVE FOR TOXIN P RODUCING CLOSTRIDIOIDES DIFFICILE, NO ADDITIONAL TESTING IS NECESSARY. Stool Rectum structure / Unknown 04/05/2024 5:00 PM EST 04/06/2024 9:25 AM EST us Mookie Donovan MD LAB MICROBIOLOGY - GENERAL ORDERABLES Final Result [facility] [address] [place] [address], [place] [phone] * (ABNORMAL) Magnesium (04/03/2024 9:41 AM EST) [facility] Magnesium 1.5(L) 1.9 - 2.6 mg/dL LAB CHEMISTRY METHOD 04/03/2024 12:21 PM [facility] Blood Venous blood specimen / Unknown Venipuncture / Unknown 04/03/2024 9:41 AM EST 04/03/2024 10:44 AM EST us Mookie Donovan MD LAB BLOOD ORDERABLES Final Result [facility] [address] [place] [address], [place] [phone] * (ABNORMAL) CBC auto differential (03/29/2024 6:51 AM EST) [facility] WBC 16.1(H) 4.8 - 10.8 K/[facility] LAB HEMETOLOGY METHOD 03/29/2024 9:23 AM [facility] RBC 3.20(L) 3.80 - 4.80 M/mcL LAB HEMETOLOGY METHOD 03/29/2024 9:23 AM [facility] Hemoglobin 9.1(L) 11.5 - 16.0 g/dL LAB HEMETOLOGY METHOD 03/29/2024 9:23 AM [facility] Hematocrit 28.3(L) 35.0 - 47.0 % LAB HEMETOLOGY METHOD 03/29/2024 9:23 AM [facility] LAB MCV 88.2 79.0 - 98.0 FL LAB HEMETOLOGY METHOD 03/29/2024 9:23 AM [facility] MCH 28.3 27.0 - 32.0 pcg LAB HEMETOLOGY METHOD 03/29/2024 9:23 AM [facility] LAB MCHC 32.2 32.0 - 37.0 g/dL LAB HEMETOLOGY METHOD 03/29/2024 9:23 AM [facility] RDW 17.6(H) 11.0 - 15.0 % LAB HEMETOLOGY METHOD 03/29/2024 9:23 AM [facility] Platelets 482(H) 130 - 400 K/mcL LAB HEMETOLOGY METHOD 03/29/2024 9:23 AM [facility] MPV 9.2 7.0 - 11.0 FL LAB HEMETOLOGY METHOD 03/29/2024 9:23 AM [facility] NRBC 0.0 <1.0 % LAB HEMETOLOGY METHOD 03/29/2024 9:23 AM [facility] NRBC Absolute 0.00 <0.10 K/mcL LAB HEMETOLOGY METHOD 03/29/2024 9:23 AM [facility] Neutrophils Relative 82.2 % LAB HEMETOLOGY METHOD 03/29/2024 9:23 AM [facility] Lymphocytes Relative 8.3 % LAB HEMETOLOGY METHOD 03/29/2024 9:23 AM [facility] Monocytes Relative 7.4 % LAB HEMETOLOGY METHOD 03/29/2024 9:23 AM [facility] Eosinophils Relative 0.3 % LAB HEMETOLOGY METHOD 03/29/2024 9:23 AM [facility] Basophils Relative 0.2 % LAB HEMETOLOGY METHOD 03/29/2024 9:23 AM [facility] Immature Granulocytes Relative 1.6 % LAB HEMETOLOGY METHOD 03/29/2024 9:23 AM [facility] Neutrophils Absolute 13.23(H) 1.50 - 7.00 K/mcL LAB HEMETOLOGY METHOD 03/29/2024 9:23 AM [facility] Lymphocytes Absolute 1.33 1.00 - 5.00 K/mcL LAB HEMETOLOGY METHOD 03/29/2024 9:23 AM [facility] Monocytes Absolute 1.19(H) 0.20 - 1.00 K/mcL LAB HEMETOLOGY METHOD 03/29/2024 9:23 AM EST [facility] Eosinophils Absolute 0.05 0.00 - 0.50 K/mcL LAB HEMETOLOGY METHOD 03/29/2024 9:23 AM EST [facility] Basophils Absolute 0.03 0.00 - 0.20 K/mcL LAB HEMETOLOGY METHOD 03/29/2024 9:23 AM [facility] Immature Granulocytes Absolute 0.25(H) 0.00 - 0.03 K/mcL LAB HEMETOLOGY METHOD 03/29/2024 9:23 AM [facility] Blood Venous blood specimen / Unknown Venipuncture / Unknown 03/29/2024 6:51 AM EST 03/29/2024 8:51 AM EST us Mookie Donovan MD LAB BLOOD ORDERABLES Final Result [facility] [address] [place] [address], * Lavender tube (03/29/2024 6:51 AM EST) Pathologist [facility] Extra Tube Hold for add-ons. 03/29/2024 11:01 AM EST [facility] Comment:Auto resulted. Blood Venous blood specimen / Unknown 03/29/2024 6:51 AM EST 03/29/2024 9:08 AM EST us Mookie Donovan MD LAB BLOOD ORDERABLES Final Result Performing Organization Address [facility]/ZIP Co de Phone Number [facility] [address] [place] [address], [place] [phone] * Hemoglobin A1c (03/29/2024 6:51 AM EST) [facility] Hemoglobin A1C 6.1 <6.5 % LAB CHEMISTRY METHOD 03/29/2024 11:40 AM [facility] Mean Bld Glu Estim. 128 mg/dL LAB CHEMISTRY METHOD 03/29/2024 11:40 AM [facility] Blood Venous blood specimen / Unknown Venipuncture / Unknown 03/29/2024 6:51 AM EST 03/29/2024 8:51 AM EST us Mookie Donovan MD LAB BLOOD ORDERABLES Final Result Performing Organization Address City/[facility]/ZIP Co de Phone Number [facility] [address] [place] [address], [place] [phone] * (ABNORMAL) Comprehensive metabolic panel (03/29/2024 6:51 AM EST) [facility] Sodium 141 133 - 145 mmol/L LAB CHEMISTRY METHOD 03/29/2024 9:50 AM [facility] Potassium 3.0(L) 3.5 - 5.5 mmol/L LAB CHEMISTRY METHOD 03/29/2024 9:50 AM [facility] Chloride 107 96 - 110 mmol/L LAB CHEMISTRY METHOD 03/29/2024 9:50 AM [facility] CO2 24 21 - 32 mmol/L LAB CHEMISTRY METHOD 03/29/2024 9:50 AM [facility] Anion Gap 10 3 - 11 LAB CHEMISTRY METHOD 03/29/2024 9:50 AM [facility] Glucose 134(H) 70 - 100 mg/dL LAB CHEMISTRY METHOD 03/29/2024 9:50 AM [facility] BUN 13 5 - 25 mg/dL LAB CHEMISTRY METHOD 03/29/2024 9:50 AM [facility] Creatinine 0.46(L) 0.50 - 1.10 mg/dL LAB CHEMISTRY METHOD 03/29/2024 9:50 AM [facility] eGFR 95 >=60 mL/min/1. 73m2 LAB CHEMISTRY METHOD 03/29/2024 9:50 AM [facility] Comment:Calculation based on the??Chronic Kidney Disease Epidemiology Collaboration (CKD-EPI) equation refit??without adjustment for race. BUN/Creatinine Ratio 28.3 LAB CHEMISTRY METHOD 03/29/2024 9:50 AM [facility] Calcium 8.4(L) 8.5 - 10.5 mg/dL LAB CHEMISTRY METHOD 03/29/2024 9:50 AM [facility] AST (SGOT) 17 10 - 42 unit/L LAB CHEMISTRY METHOD 03/29/2024 9:50 AM [facility] ALT (SGPT) 13 10 - 60 unit/L LAB CHEMISTRY METHOD 03/29/2024 9:50 AM [facility] Alkaline Phosphatase 161(H) 42 - 121 unit/L LAB CHEMISTRY METHOD 03/29/2024 9:50 AM [facility] Total Protein 5.5(L) 6.0 - 8.0 g/dL LAB CHEMISTRY METHOD 03/29/2024 9:50 AM [facility] Albumin 2.0(L) 3.2 - 5.0 g/dL LAB CHEMISTRY METHOD 03/29/2024 9:50 AM EST [facility] Total Bilirubin 0.4 0.0 - 1.4 mg/dL LAB CHEMISTRY METHOD 03/29/2024 9:50 AM EST [facility] Blood Venous blood specimen / Unknown Venipuncture / Unknown 03/29/2024 6:51 AM EST 03/29/2024 8:51 AM EST us Mookie Donovan MD LAB BLOOD ORDERABLES Final Result [facility] ([facility]) [facility] [address] [place] [address], from Last 3 Months Additional Health Concerns Infection Onset Date Last Indicated ESBL 04/25/2024 04/25/2024 Insurance MEDICAID - [place] MEDICARE Care Teams Barista Relationship Specialty Start Date End Date Melissa Shannon MD [address] [facility] [place] [address] PCP - General Internal Medicine 04/02/13
--- OUTSIDE RECORDS SUMMARY | 2024-06-05 07:04 | XMS_ITS | Encounter Summary ---
Author Organization [facility] [place] [address] Care Team Providers Care Marketing Senior Recruiter Name Role Phone Melissa Shannon MD Primary Care Provider [phone] Encounter Details Date Type Department Care Team (Late st Contact Info) Description 04/26/2024 Lab Requisition [facility] - Main Lab [address] [facility] [place] [phone] Mookie Donovan MD [address] [place] [address] Anemia, unspecified; Type 2 diabetes mellitus without [...] Description 07/19/2024 3:30 PM EDT Ancillary Procedure [facility] Cardiology [facility] - [facility] [address] [facility] [address] [place] [address] 07/31/2024 10:20 AM EDT Office Visit [facility] Cardiology [facility] - [facility] [address] 300 [facility] [address] [place] [address] Sis Dowell MD [address] [place] [address] documented as of this encounter Procedures Procedure [...] LAB CHEMISTRY METHOD 04/26/2024 8:47 AM EST [facility] Blood Venous blood specimen / Unknown Venipuncture / Unknown 04/26/2024 6:34 AM EST 04/26/2024 7:53 AM EST us Mookie Donovan MD LAB BLOOD ORDERABLES Final Result [facility] ([facility] [address] [place] [address], * Thyroxine free (04/26/2024 6:34 AM EST) Free T4 1.25 0.70 - 1.80 ng/dL LAB CHEMISTRY METHOD 04/26/2024 8:46 AM EST [facility] Blood Venous blood specimen / Unknown Venipuncture / Unknown 04/26/2024 6:34 AM EST 04/26/2024 7:53 AM EST us Mookie Donovan MD LAB BLOOD ORDERABLES Final Result Performing Organization Address [facility]/ZIP Co de Phone Number [facility] [address] [place] [address], [place] [phone] * (ABNORMAL) Thyroid stimulating hormone (04/26/2024 6:34 AM EST) Pathologist [facility] TSH 6.69(H) 0.40 - 4.00 mcIU/mL LAB CHEMISTRY METHOD 04/26/2024 8:48 AM EST [facility] Blood Venous blood specimen / Unknown Venipuncture / Unknown 04/26/2024 6:34 AM EST 04/26/2024 7:53 AM EST us Mookie Donovan MD LAB BLOOD ORDERABLES Final Result Performing Organization Address [facility] de Phone Number [facility] [address] [place] [address], [place] [phone] * (ABNORMAL) Basic metabolic panel (04/26/2024 6:34 AM EST) [facility] Sodium 137 133 - 145 mmol/L LAB CHEMISTRY METHOD 04/26/2024 8:38 AM EST [facility] Potassium 3.7 3.5 - 5.5 mmol/L LAB CHEMISTRY METHOD 04/26/2024 8:38 AM EST [facility] Chloride 101 96 - 110 mmol/L LAB CHEMISTRY METHOD 04/26/2024 8:38 AM EST [facility] CO2 34(H) 21 - 32 mmol/L LAB CHEMISTRY METHOD 04/26/2024 8:38 AM [facility] Anion Gap 2(L) 3 - 11 LAB CHEMISTRY METHOD 04/26/2024 8:38 AM [facility] Glucose 133(H) 70 - 100 mg/dL LAB CHEMISTRY METHOD 04/26/2024 8:38 AM [facility] BUN 15 5 - 25 mg/dL LAB CHEMISTRY METHOD 04/26/2024 8:38 AM [facility] Creatinine 0.60 0.50 - 1.10 mg/dL LAB CHEMISTRY METHOD 04/26/2024 8:38 AM [facility] eGFR 89 >=60 mL/min/1. 73m2 LAB CHEMISTRY METHOD 04/26/2024 8:38 AM [facility] Comment:Calculation based on the??Chronic Kidney Disease Epidemiology Collaboration (CKD-EPI) equation refit??without adjustment for race. BUN/Creatinine Ratio 25.0 LAB CHEMISTRY METHOD 04/26/2024 8:38 AM [facility] Calcium 8.7 8.5 - 10.5 mg/dL LAB CHEMISTRY METHOD 04/26/2024 8:38 AM [facility] Blood Venous blood specimen / Unknown Venipuncture / Unknown 04/26/2024 6:34 AM EST 04/26/2024 7:53 AM EST Mookie Donovan MD LAB BLOOD ORDERABLES Final Result [facility] [address] [place] [address], * (ABNORMAL) Complete blood count (04/26/2024 6:34 AM EST) WBC 10.3 4.8 - 10.8 K/mcL LAB HEMETOLOGY METHOD 04/26/2024 8:13 AM [facility] RBC 3.60(L) 3.80 - 4.80 M/mcL LAB HEMETOLOGY METHOD 04/26/2024 8:13 AM [facility] Hemoglobin 9.7(L) 11.5 - 16.0 g/dL LAB HEMETOLOGY METHOD 04/26/2024 8:13 AM [facility] Hematocrit 31.6(L) 35.0 - 47.0 % LAB HEMETOLOGY METHOD 04/26/2024 8:13 AM [facility] MCV 88.3 79.0 - 98.0 FL LAB HEMETOLOGY METHOD 04/26/2024 8:13 AM [facility] MCH 27.1 27.0 - 32.0 pcg LAB HEMETOLOGY METHOD 04/26/2024 8:13 AM [facility] MCHC 30.7(L) 32.0 - 37.0 g/dL LAB HEMETOLOGY METHOD 04/26/2024 8:13 AM [facility] RDW 17.0(H) 11.0 - 15.0 % LAB HEMETOLOGY METHOD 04/26/2024 8:13 AM [facility] Platelets 215 130 - 400 K/mcL LAB HEMETOLOGY METHOD 04/26/2024 8:13 AM [facility] MPV 10.8 7.0 - 11.0 FL LAB HEMETOLOGY METHOD 04/26/2024 8:13 AM [facility] NRBC 0.0 <1.0 % LAB HEMETOLOGY METHOD 04/26/2024 8:13 AM [facility] NRBC Absolute 0.00 <0.10 K/mcL LAB HEMETOLOGY METHOD 04/26/2024 8:13 AM [facility] Blood Venous blood specimen / Unknown Venipuncture / Unknown 04/26/2024 6:34 AM EST 04/26/2024 7:53 AM EST Mookie Donovan MD LAB BLOOD ORDERABLES Final Result [facility] LAB [address] [place] [address], documented in this encounter Visit Diagnoses Diagnosis Anemia, unspecified Type 2 diabetes mellitus without complications (CMS/HCC) documented in this encounter Additional Health Concerns Infection Onset Date Last Indicated Resolved Time ESBL 04/25/2024 04/25/2024 documented as of this encounter Care Teams Marketing Senior Recruiter Relationship Specialty Start Date End Date Melissa Shannon MD [address] [place] [address] PCP - General Internal Medicine 04/02/13 documented as of this encounter
--- OUTSIDE RECORDS SUMMARY | 2024-06-05 07:04 | XMS_ITS | Encounter Summary ---
Author Organization [facility] [address] Care Team Providers Care Mini Baccarat Dealer Name Role Phone Melissa Shannon MD Primary Care Provider Encounter Details Date Type Department Care Team (Late st Contact Info) Description 04/02/2024 Lab Requisition [facility] - Main Lab [address] [facility] [place] [phone] Mookie Donovan MD [address] [place] [address] Anemia, unspecified Social History Tobacco Use Types [...] Description 07/19/2024 3:30 PM EDT Ancillary Procedure [facility] Cardiology [facility] [address] [place] [address] 07/31/2024 10:20 AM EDT Office Visit [facility] Cardiology [facility] [address] [place] [phone] Sis Dowell MD [address] [place] [address] documented as of this encounter Procedures Procedure Name Priority Date/Time Associated Diagnosis Comments MAGNESIUM Routine 04/03/2024 9:41 AM EST Anemia, unspecified COMPLETE BLOOD COUNT Routine 04/03/2024 8:41 AM EST Anemia, unspecified documented in this encounter Results * (ABNORMAL) Magnesium (04/03/2024 9:41 AM EST) Magnesium 1.5(L) 1.9 - 2.6 mg/dL LAB CHEMISTRY METHOD 04/03/2024 12:21 PM [facility] Blood Venous blood specimen / Unknown Venipuncture / Unknown 04/03/2024 9:41 AM EST 04/03/2024 10:44 AM EST us Mookie Donovan MD LAB BLOOD ORDERABLES Final Result [facility] [address] [place] [address], * (ABNORMAL) Complete blood count (04/03/2024 8:41 AM EST) WBC 12.7(H) 4.8 - 10.8 K/mcL LAB HEMETOLOGY METHOD 04/03/2024 11:05 AM [facility] RBC 3.30(L) 3.80 - 4.80 M/mcL LAB HEMETOLOGY METHOD 04/03/2024 11:05 AM [facility] Hemoglobin 9.8(L) 11.5 - 16.0 g/dL LAB HEMETOLOGY METHOD 04/03/2024 11:05 AM [facility] Hematocrit 29.3(L) 35.0 - 47.0 % LAB HEMETOLOGY METHOD 04/03/2024 11:05 AM [facility] MCV 88.5 79.0 - 98.0 FL LAB HEMETOLOGY METHOD 04/03/2024 11:05 AM [facility] MCH 29.6 27.0 - 32.0 pcg LAB HEMETOLOGY METHOD 04/03/2024 11:05 AM [facility] MCHC 33.4 32.0 - 37.0 g/dL LAB HEMETOLOGY METHOD 04/03/2024 11:05 AM [facility] RDW 17.3(H) 11.0 - 15.0 % LAB HEMETOLOGY METHOD 04/03/2024 11:05 AM [facility] Platelets 565(H) 130 - 400 K/mcL LAB HEMETOLOGY METHOD 04/03/2024 11:05 AM [facility] MPV 9.8 7.0 - 11.0 FL LAB HEMETOLOGY METHOD 04/03/2024 11:05 AM [facility] NRBC 0.0 <1.0 % LAB HEMETOLOGY METHOD 04/03/2024 11:05 AM [facility] NRBC Absolute 0.00 <0.10 K/mcL LAB HEMETOLOGY METHOD 04/03/2024 11:05 AM [facility] Blood Venous blood specimen / Unknown Venipuncture / Unknown 04/03/2024 8:41 AM EST 04/03/2024 10:46 AM EST us Mookie Donovan MD LAB BLOOD ORDERABLES Final Result [facility] [address] [place] [address], documented in this encounter Visit Diagnoses Diagnosis Anemia, unspecified documented in this encounter Additional Health Concerns Infection Onset Date Last Indicated Resolved Time ESBL 04/25/2024 04/25/2024 documented as of this encounter Care Teams Mini Baccarat Dealer Relationship Specialty Start Date End Date Melissa Shannon MD [address] [place] [address] PCP - General Internal Medicine 04/02/13 documented as of this encounter
[2024-06-05 10:51] LABS: MANUAL DIFF FLAG NO
[2024-06-05 10:55] LABS: Basophils Percent Auto 0.4 % (0-2); Eosinophils Absolute Auto 0.1 X10*3/uL (0.0-0.4); Eosinophils Percent Auto 0.8 % (0-4); Hematocrit 33.3 % (37.0-47.0); Hemoglobin 10.7 g/dl (12.0-16.0); Imm Gran Abs Auto 0.06 X10*3/uL (0.00-0.03); Imm Gran Pct Auto 0.6 % (0.0-0.4); Lymphocytes Absolute Auto 2.6 X10*3/uL (1.2-4.9); Lymphocytes Percent Auto 24.1 % (20-40); Mean Corpuscular HGB Conc 32.1 g/dl (31.0-35.0); Mean Corpuscular Hemoglobin 26.7 pg (27.0-33.0); Mean Platelet Volume 10.1 fL (9.4-12.3); Monocytes Percent Auto 9.8 % (2-11); Neutrophils Absolute Auto 6.9 x10*3/uL (2.0-8.3); Neutrophils Percent Auto 64.3 % (45-73); Platelet Count 330 X10*3/uL (160-400); Red Blood Count 4.01 X10*6/uL (4.20-5.50); Red Cell Distribution Width 19.8 % (11.0-16.0); White Blood Count 10.7 X10*3/uL (4.8-10.8)
[2024-06-05 11:12] LABS: Estimated Average Glucose 123 mg/dL; Hemoglobin A1C 111.6406 umol/L; Hemoglobin A1c % 5.9 % (<6.0); Total Hemoglobin (HGBA1C) 2741.4141 umol/L
[2024-06-05 11:26] LABS: Anion Gap 12 (12-20); Blood Urea Nitrogen 15 mg/dL (9-16); Calcium 8.7 mg/dL (8.4-10.2); Carbon Dioxide 30 mmol/L (22-29); Chloride 101 mmol/L (96-108); Cholesterol 176 mg/dL (<200); Estimated Glomerular Filt Rate > 60; Glucose Fasting 132 mg/dL (60-99); HDL Cholesterol 47 mg/dL (>40); Iron 19 mcg/dL (30-160); LDL Cholesterol Calculated 101 mg/dL (<100); Percent Iron Saturation 11 % (15-50); Potassium 3.6 mmol/L (3.3-5.1); Sodium 139 mmol/L (135-145); Total Iron Binding Capacity 175 mcg/dL (228-428); Triglycerides 140 mg/dL (<150); Unsaturated Iron Binding 156 ug/dL
[2024-06-05 11:49] LABS: Magnesium 1.4 mg/dL (1.6-2.6)
== END 2024-06-05 07:01 | disposition home or self-care (01) ==
LOC: HO.LHD 07:00
PROVIDERS: Visit Provider Internal Medicine
DX: E11.9 Type 2 diabetes mellitus without complications (principal); E83.42 Hypomagnesemia; E78.00 Pure hypercholesterolemia, unspecified; I10 Essential (primary) hypertension; D50.9 Iron deficiency anemia, unspecified
CPT/HCPCS: 36415; 80048; 80061; 83036; 83540; 83735; 85025

== ENCOUNTER 2024-06-08 09:28 | Outpatient (AMB) | payer MEDICARE, MEDICAID, SELFPAY ==
--- NOTE | 2024-06-08 09:29 | MHC.PC.OV ---
Intake Visit Reasons: f/u labs [phone] android Allergies meperidine [Demerol] Allergy (Unknown, Verified 06/08/24 09:48) Nausea and Vomiting oxycodone Allergy (Unknown, Verified 06/08/24 09:48) Nausea and Vomiting Sulfa (Sulfonamide Antibiotics) [SULFA (SULFONAMIDE ANTIBIOTICS)] Allergy (Unknown, Verified 06/08/24 09:48) NAUSEA & VOMITING, GI upset morphine Allergy (Verified 06/08/24 09:48) Hallucinations Penicillins [PENICILLINS] Allergy (Verified 06/08/24 09:48) rash shellfish derived Allergy (Verified 06/08/24 09:48) Anaphylaxis warfarin [WARFARIN] Adverse Reaction (Severe, Verified 06/08/24 09:48) UNKNOWN aspirin [ASPIRIN] Adverse Reaction (Mild, Verified 06/08/24 09:48) gi bleed enoxaparin [From LOVENOX] Adverse Reaction (Unknown, Verified 06/08/24 09:48) INTERNAL BLEEDING heparin [HEPARIN] Adverse Reaction (Unknown, Verified 06/08/24 09:48) INTERNAL BLEEDING ibuprofen Adverse Reaction (Unknown, Verified 06/08/24 09:48) GI bleed MAGNOLIA Inhibitors Adverse Reaction (Verified 06/08/24 09:48) Angioedema Chocolate Adverse Reaction (Verified 06/08/24 09:48) Diarrhea Medication List - Last Reconciled 06/08/24 by Melissa Shannon MD acetaminophen 1,000 mg PO Q6H PRN [Adult facial/body wipes As directed NS] [adult pull-ups (medium) As directed NS] albuterol sulfate 2.5 mg (3 mL) inhalation Q6H PRN 30 days allopurinol 100 mg PO DAILY alprazolam 0.25 mg PO DAILY amiodarone 200 mg PO DAILY apixaban (Eliquis) 5 mg PO BID bedside commode (commode) Use As directed NS blood-glucose meter (FreeStyle Lite Meter kit) Check blood sugar once a day as directed docusate sodium (Colace) 100 mg PO BID PRN duloxetine 30 mg PO BID 3 months epinephrine (EpiPen) 0.3 mg (0.3 mL) IM ONCE PRN fluticasone furoate 100 mcg/actuation (Arnuity Ellipta) 1 inh inhalation DAILY 30 days fluticasone propionate 50 mcg/actuation 2 sprays intranasal DAILY furosemide 20 mg PO DAILY gabapentin (Neurontin) 100 mg PO BID 1 month [Head & foot electric bed with half side rails head and foot electric bed with 2 half side rails NS] ipratropium-albuterol 0.5 mg-3 mg(2.5 mg base)/3 mL 3 mL inhalation Q6H PRN 30 days loratadine 10 mg PO DAILY PRN losartan 50 mg PO DAILY magnesium oxide 400 mg PO BID metoprolol succinate ER 75 mg See Protocol PO DAILY 3 months montelukast 10 mg PO BEDTIME nebulizers As directed pantoprazole 40 mg PO DAILY@0630 polyethylene glycol 3350 (Miralax) 17 grams PO BID PRN potassium chloride ER 20 mEq PO DAILY [Re-usable/washable adult pads As directed NS] rosuvastatin 20 mg PO BEDTIME sennosides (senna) 8.6 mg PO BEDTIME Serevent Diskus (salmeterol) 1 inh inhalation BID 30 days NS sitagliptin phos-metformin 50-500 mg 1 tab PO BID 90 days Ventolin HFA 90 mcg/actuation (albuterol sulfate) 2 puffs inhalation Q4-6H PRN NS [wheelchair with foot rest As directed] Tobacco use date assessed: 06/08/24 Fall risk assessment: 2 + Falls in past year Last assessed Fall Risk: 06/08/24 Dental Screening Dental Screen Date: 05/11/24 HPI f/u labs [phone] android HPI Details 84-year-old lady with past medical history significant for paroxysmal atrial fibrillation, not on anticoagulation due to history of GI bleed, iron-deficiency anemia, history of congestive heart failure, history of right humeral fracture , dyslipidemia, mixed stress and urge urinary incontinence, osteoporosis, COPD, GERD, gout, type 2 diabetes mellitus, and hypertension, here today for follow-up. She she is now back home after going to short-term rehab. She just started home physical therapy after her discharge from rehab. States that she is starting to get her strength back but still unsteady with her gait . She had recent fasting labs done which showed presence of iron-deficiency anemia, hypomagnesemia, but the rest of her electrolytes, renal function, lipid levels, and hemoglobin A1c are all within normal limits. [facility] Medical History (Updated 06/09/24 @ 04:03 by Melissa Shannon MD) Iron deficiency anemia History of COVID-19 History of toe fracture Hx of fracture of humerus Diastolic heart failure Lumbar back pain with radiculopathy affecting left lower extremity Mixed stress and urge urinary incontinence Osteoporosis History of compression fracture of spine Compression fracture of body of thoracic vertebra Paroxysmal atrial fibrillation Anemia Diverticulitis COPD (chronic obstructive pulmonary disease) Allergic rhinitis Multiple lipomas 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) GERD (gastroesophageal reflux disease) Deep vein thrombosis (DVT) of left lower extremity Gout Anxiety disorder Type 2 diabetes mellitus without complication, without long-term current use of insulin Hyperlipidemia Hypertension Surgical History H/O: hysterectomy History of gastric surgery Hx of hand surgery H/O local excision of skin lesion Family History Mother Mental health disorder Sister CVA (cerebral vascular accident) Daughter Brain tumor Diabetes Bipolar 1 disorder Heart abnormality Mental illness in member of household Mental health disorder Father Substance use disorder Son Mental health disorder Social History Household Members: Family Housing: House Do you presently have visiting nurse or other home services: No Alcohol intake: former Patient Tobacco Use Status: Former Tobacco user Years Smoked: 10 yrs e-Cigarette/Vaping Use: Never Used Second Hand Smoke Exposure: No Advance Directives Date on File: 07/27/21 service: No Current occupational status: retired Cognitive needs: No Hearing needs: No Vision needs: Yes Questionnaire Thrive Questionnaire Date Thrive assessed: 12/27/23 KIRA-7 AMB Questionnaire KRIA-7 Date KIRA - 7 assessed: 12/27/23 Source: Developed by Drs. Dg Louis, Joyce Saez, Gigi Gaytan and colleagues, with an educational bao from [employer]. Review of Systems Const Reports no additional complaints Eyes Reports no additional complaints ENT Reports no additional complaints Card Denies chest pain, Denies leg edema and Denies dyspnea Resp Denies cough and Denies dyspnea GI Reports no additional complaints Reports no additional complaints Musc Reports back pain (Chronic) and Reports muscle weakness Skin/Breast Reports system reviewed and no additional complaints, except as documented Neuro Reports no additional complaints Psych Reports no additional complaints Endo Reports no additional complaints Tolu/Lymph Reports no additional complaints Aller/Immun Reports seasonal rhinorrhea Physical exam (Primary Care) Tobacco/Smoking Status: Tobacco use Status Tobacco use date assessed 06/08/24 06/08/24 09:31 Patient Tobacco Use Status Former Tobacco user 06/08/24 09:31 e-Cigarette/Vaping Use Never Used 06/08/24 09:31 Thrive Assessment: Date of Thrive Assessment Date Thrive assessed 12/27/23 06/08/24 09:31 Telehealth Telehealth Telehealth Platform: [employer] Location of provider rendering services: practice address Location of patient: address on file Patient Identification confirmed using: Name, : Yes Telehealth method: video Patient verbally consented to treatment: Yes Patient verbally consented to billing insurance company: Yes Patient informed of any privacy concerns related to visit: Yes Minutes spent on Phone/Video with Pt.: 15 Results Reviewed Results Reviewed: Name: Joyce Waddell I Age/Sex: 84/F : 1940 Unit#: [id number] Attend Dr: Melissa Shannon MD Re06/05/24 Status: DEP REF Location: [facility] Disch: SPEC : [id number] CHRISTEL: 06/05/24 STATUS: COMP REQ : [id number] RECD: 06/05/[address]: Melissa Shannon MD COMP: 06/05/24 ENTERED: 06/05/[address]: ORDERED: CBC Auto Diff Test Result Flag Reference WBC 10.7 4.8-10.8 X10*3/uL RBC 4.01 L 4.20-5.50 X10*6/uL HGB 10.7 L 12.0-16.0 g/dl HCT 33.3 L 37.0-47.0 % MCV 83.0 80.0-98.0 fL MCH 26.7 L 27.0-33.0 pg MCHC 32.1 31.0-35.0 g/dl RDW 19.8 H 11.0-16.0 % PLT 330 160-400 X10*3/uL MPV 10.1 9.4-12.3 fL Neut Pct Auto 64.3 45-73 % ImGran Pct Auto 0.6 H 0.0-0.4 % Lymp Pct Auto 24.1 20-40 % [place] Pct Auto 9.8 2-11 % Eos Pct Auto 0.8 0-4 % Baso Pct Auto 0.4 0-2 % NRBC Pct Auto 0.0 0.0-0.2 /100WBC ANC Neut Abs # 6.9 2.0-8.3 x10*3/uL ImGran Abs Auto 0.06 H 0.00-0.03 X10*3/uL Lymph Abs Auto 2.6 1.2-4.9 X10*3/uL [place] Abs Auto 1.0 0.1-1.2 X10*3/uL Eos Abs Auto 0.1 0.0-0.4 X10*3/uL Baso Abs Auto 0.0 0.0-0.2 X10*3/uL NRBC Abs Auto 0.000 0.0-0.012 X10*3/uL Name: Joyce Waddell I Age/Sex: 84/F : 1940 Unit#: [id number] Attend Dr: Melissa Shannon MD Re06/05/24 Status: DEP REF Location: [facility] Disch: SPEC : [id number] CHRISTEL: 06/05/24 STATUS: COMP REQ : [id number] RECD: 06/05/[address]: Melissa Shannon MD COMP: 06/05/24 ENTERED: 06/05/24-[address] [facility] [address]: ORDERED: Met Prof Fast, MG, IRON PROF, Lipid Panel Test Result Flag Reference Sodium 139 135-145 mmol/L Potassium 3.6 3.3-5.1 mmol/L CL 101 96-108 mmol/L CO2 30 H 22-29 mmol/L Gap 12 12-20 BUN 15 9-16 mg/dL Creat 0.63 0.5-1.4 mg/dL eGFR > 60 Chronic Kidney Disease: Estimated GFR < 60 mL/min/1.73m2 Severe Kidney Disease: Estimated GFR < 15 mL/min/1.73m2 FBS 132 H 60-99 mg/dL A fasting glucose of 126 mg/dl or greater on more than one occasion is considered diagnostic of diabetes. CA 8.7 8.4-10.2 mg/dL Magnesium 1.4 *L 1.6-2.6 mg/dL Critical value for MAG: Results called to and read back by: BHAVIN Lora Person calling: CLARA Date: 06-05-24 Time:1146 Iron 19 L 30-160 mcg/dL TIBC 175 L 228-428 mcg/dL Saturation 11 L 15-50 % UIBC 156 ug/dL Triglyceride 140 <150 mg/dL Desirable Triglyceride: less than 150 mg/dL Borderline High Triglyceride 150-199 mg/dL High Triglyceride: 200-499 mg/dL Very High Triglyceride: greater than or equal to 5OO mg/dL Cholesterol 176 <200 mg/dL Desirable Cholesterol: less than 200 mg/dL Borderline High Cholesterol: 200-239 mg/dL High Cholesterol: greater than 239 mg/dL LDL Calculated 101 H <100 mg/dL Desirable LDL: less than 100 mg/dL Near Optimal/Above Optimal LDL: 110-129 mg/dL Borderline High LDL: 130-159 mg/dL High LDL: 160-189 mg/dL Very High LDL: greater than or equal to 190 mg/dL HDL 47 >40 mg/dL Desirable HDL: greater than 40 mg/dL Laboratory Tests 06/05/24 10:49 Estimat Average Glucose 123 Hemoglobin A1c % 5.9 Coding Level of Care Code Tele Est Pt Level 4 (54040) Diagnoses Type 2 diabetes mellitus without complication, without long-term current use of insulin E11.9 Pure hypercholesterolemia E78.00 Hyperlipidemia type: pure hypercholesterolemia Iron deficiency anemia, unspecified iron deficiency anemia type D50.9 Iron deficiency anemia type: unspecified iron deficiency Hypomagnesemia E83.42 Generalized weakness R53.1 Assessment & Plan Assessment & Plan (1) Type 2 diabetes mellitus without complication, without long-term current use of insulin: Code(s): E11.9 - Type 2 diabetes mellitus without complications Category: Medical Plan: Diabetes stable and controlled on present treatment, with hemoglobin A1c at 5.9%. Continued on sitagliptin metformin 50-500 mg taken 1 tablet twice a day with meals (2) Hyperlipidemia: Code(s): E78.5 - Hyperlipidemia, unspecified Category: Medical Qualifiers: Hyperlipidemia type: pure hypercholesterolemia Qualified Code(s): E78.00 - Pure hypercholesterolemia, unspecified Plan: Reviewed recent fasting lipid profile with patient with levels within normal limits . Continue rosuvastatin 20 mg at bedtime , in addition to adherence to low-cholesterol diet and regular exercise, at least 30 minutes 3 to 4 times a week. Advised patient to make healthy food choices, eat more fruits, vegetables, whole grains, wild caught fish and low-fat dairy. Limit amount of meat and fried or fatty food products, as well as processed foods and fast foods. (3) Iron deficiency anemia: Code(s): D50.9 - Iron deficiency anemia, unspecified Category: Medical Qualifiers: Iron deficiency anemia type: unspecified iron deficiency Qualified Code(s): D50.9 - Iron deficiency anemia, unspecified Plan: Restart back on taking iron supplements, patient's daughter states that they still have iron supplements at take patient can take. Will repeat another CBC and profile in 6 weeks, lab ordered (4) Hypomagnesemia: Code(s): E83.42 - Hypomagnesemia Category: Medical Plan: Latest magnesium level is at 1.4, slightly increased from last check, but still not at normal limits. Continue with magnesium oxide 400 mg 1 tablet twice a day, patient denies any diarrhea or loose stools. Repeat levels again in 6 weeks (5) Generalized weakness: Code(s): R53.1 - Weakness Category: Medical Plan: Currently started having home physical therapy. Orders: Orders Complete Blood Count Auto Diff 6 Weeks D50.9 - Iron deficiency anemia, unspecified, E83.42 - Hypomagnesemia IRON PROFILE 6 Weeks D50.9 - Iron deficiency anemia, unspecified, E83.42 - Hypomagnesemia Magnesium 6 Weeks D50.9 - Iron deficiency anemia, unspecified, E83.42 - Hypomagnesemia
--- OUTSIDE RECORDS SUMMARY | 2024-06-08 09:54 | XMS_ITS | Encounter Summary ---
Author Organization [facility] [place] [address] Care Team Providers Care Camera Repairer Name Role Phone Melissa Shannon MD Primary Care Provider Encounter Details Date Type Department Care Team (Late st Contact Info) Description 04/26/[address] [facility] - Main Lab 299 [facility] [phone] Mookie Donovan MD [address] [place] [address] Anemia, unspecified; Type 2 diabetes mellitus without [...] Description 07/19/2024 3:30 PM EDT Ancillary Procedure [facility] Cardiology [facility] - [facility] [address] [facility] 101 [place] [address] 07/31/2024 10:20 AM EDT Office Visit [facility] Cardiology [facility] - [facility] [address] [facility] 154 [place] [address] Sis Dowell MD [address] [place] [address] documented as of this encounter Procedures Procedure [...] LAB CHEMISTRY METHOD 04/26/2024 8:47 AM EST [facility] Blood Venous blood specimen / Unknown Venipuncture / Unknown 04/26/2024 6:34 AM EST 04/26/2024 7:53 AM EST us Mookie Donovan MD LAB BLOOD ORDERABLES Final Result [facility] ([facility]) [facility] [address] [place] [address], * Thyroxine free (04/26/2024 6:34 AM EST) Free T4 1.25 0.70 - 1.80 ng/dL LAB CHEMISTRY METHOD 04/26/2024 8:46 AM EST [facility] Blood Venous blood specimen / Unknown Venipuncture / Unknown 04/26/2024 6:34 AM EST 04/26/2024 7:53 AM EST us Mookie Donovan MD LAB BLOOD ORDERABLES Final Result Performing Organization Address [facility]/ZIP Co de Phone Number [facility] [address] [place] [address], [place] [phone] * (ABNORMAL) Thyroid stimulating hormone (04/26/2024 6:34 AM EST) Pathologist [facility] TSH 6.69(H) 0.40 - 4.00 mcIU/mL LAB CHEMISTRY METHOD 04/26/2024 8:48 AM EST [facility] Blood Venous blood specimen / Unknown Venipuncture / Unknown 04/26/2024 6:34 AM EST 04/26/2024 7:53 AM EST us Mookie Donovan MD LAB BLOOD ORDERABLES Final Result Performing Organization Address [facility] de Phone Number [facility] [address] [place] [address], [place] [phone] * (ABNORMAL) Basic metabolic panel (04/26/2024 6:34 AM EST) [facility] Sodium 137 133 - 145 mmol/L LAB CHEMISTRY METHOD 04/26/2024 8:38 AM EST [facility] Potassium 3.7 3.5 - 5.5 mmol/L LAB CHEMISTRY METHOD 04/26/2024 8:38 AM EST [facility] Chloride 101 96 - 110 mmol/L LAB CHEMISTRY METHOD 04/26/2024 8:38 AM EST [facility] CO2 34(H) 21 - 32 mmol/L LAB CHEMISTRY METHOD 04/26/2024 8:38 AM [facility] Anion Gap 2(L) 3 - 11 LAB CHEMISTRY METHOD 04/26/2024 8:38 AM [facility] Glucose 133(H) 70 - 100 mg/dL LAB CHEMISTRY METHOD 04/26/2024 8:38 AM [facility] BUN 15 5 - 25 mg/dL LAB CHEMISTRY METHOD 04/26/2024 8:38 AM [facility] Creatinine 0.60 0.50 - 1.10 mg/dL LAB CHEMISTRY METHOD 04/26/2024 8:38 AM [facility] eGFR 89 >=60 mL/min/1. 73m2 LAB CHEMISTRY METHOD 04/26/2024 8:38 AM [facility] Comment:Calculation based on the??Chronic Kidney Disease Epidemiology Collaboration (CKD-EPI) equation refit??without adjustment for race. BUN/Creatinine Ratio 25.0 LAB CHEMISTRY METHOD 04/26/2024 8:38 AM [facility] Calcium 8.7 8.5 - 10.5 mg/dL LAB CHEMISTRY METHOD 04/26/2024 8:38 AM [facility] Blood Venous blood specimen / Unknown Venipuncture / Unknown 04/26/2024 6:34 AM EST 04/26/2024 7:53 AM EST Mookie Donovan MD LAB BLOOD ORDERABLES Final Result [facility] [address] [place] [address], * (ABNORMAL) Complete blood count (04/26/2024 6:34 AM EST) WBC 10.3 4.8 - 10.8 K/mcL LAB HEMETOLOGY METHOD 04/26/2024 8:13 AM [facility] RBC 3.60(L) 3.80 - 4.80 M/mcL LAB HEMETOLOGY METHOD 04/26/2024 8:13 AM [facility] Hemoglobin 9.7(L) 11.5 - 16.0 g/dL LAB HEMETOLOGY METHOD 04/26/2024 8:13 AM [facility] Hematocrit 31.6(L) 35.0 - 47.0 % LAB HEMETOLOGY METHOD 04/26/2024 8:13 AM [facility] MCV 88.3 79.0 - 98.0 FL LAB HEMETOLOGY METHOD 04/26/2024 8:13 AM [facility] MCH 27.1 27.0 - 32.0 pcg LAB HEMETOLOGY METHOD 04/26/2024 8:13 AM [facility] MCHC 30.7(L) 32.0 - 37.0 g/dL LAB HEMETOLOGY METHOD 04/26/2024 8:13 AM [facility] RDW 17.0(H) 11.0 - 15.0 % LAB HEMETOLOGY METHOD 04/26/2024 8:13 AM [facility] Platelets 215 130 - 400 K/mcL LAB HEMETOLOGY METHOD 04/26/2024 8:13 AM [facility] MPV 10.8 7.0 - 11.0 FL LAB HEMETOLOGY METHOD 04/26/2024 8:13 AM [facility] NRBC 0.0 <1.0 % LAB HEMETOLOGY METHOD 04/26/2024 8:13 AM [facility] NRBC Absolute 0.00 <0.10 K/mcL LAB HEMETOLOGY METHOD 04/26/2024 8:13 AM [facility] Blood Venous blood specimen / Unknown Venipuncture / Unknown 04/26/2024 6:34 AM EST 04/26/2024 7:53 AM EST Mookie Donovan MD LAB BLOOD ORDERABLES Final Result [facility] ([facility] LAB [address] [place] [address], documented in this encounter Visit Diagnoses Diagnosis Anemia, unspecified Type 2 diabetes mellitus without complications (CMS/HCC) documented in this encounter Additional Health Concerns Infection Onset Date Last Indicated Resolved Time ESBL 04/25/2024 04/25/2024 documented as of this encounter Care Teams Camera Repairer Relationship Specialty Start Date End Date Melissa Shannon MD [address] [place] [address] PCP - General Internal Medicine 04/02/13 documented as of this encounter
--- OUTSIDE RECORDS SUMMARY | 2024-06-08 09:54 | XMS_ITS | Encounter Summary ---
Author Organization [facility] [place] [address] Care Team Providers Care Fire Range Technician Name Role Phone Melissa Shannon MD Primary Care Provider Encounter Details Date Type Department Care Team (Late st Contact Info) Description 03/29/2024 Lab Requisition [facility] - Main Lab 299 [facility] [place] [phone] Mookie Donovan MD [address] [place] [address] Unspecified atrial fibrillation (CMS/HCC); Type 2 diabetes [...] EDT Ancillary Procedure [facility] Cardiology [facility] [address] [place] [address] 07/31/2024 10:20 AM EDT Office Visit [facility] Cardiology [facility] [address] [facility] [address] [place] [address] Sis Dowell MD 300 [facility] 154 [place] [address] documented as of this encounter Procedures Procedure [...] Hold for add-ons. 03/29/2024 11:01 AM EST [facility] Comment:Auto resulted. Blood Venous blood specimen / Unknown 03/29/2024 6:51 AM EST 03/29/2024 9:08 AM EST us Mookie Donovan MD LAB BLOOD ORDERABLES Final Result [facility]) [facility] [address] [place] [address], * (ABNORMAL) CBC auto differential (03/29/2024 6:51 AM EST) [facility] WBC 16.1(H) 4.8 - 10.8 K/mcL LAB HEMETOLOGY METHOD 03/29/2024 9:23 AM [facility] RBC 3.20(L) 3.80 - 4.80 M/mcL LAB HEMETOLOGY METHOD 03/29/2024 9:23 AM [facility] Hemoglobin 9.1(L) 11.5 - 16.0 g/dL LAB HEMETOLOGY METHOD 03/29/2024 9:23 AM [facility] Hematocrit 28.3(L) 35.0 - 47.0 % LAB HEMETOLOGY METHOD 03/29/2024 9:23 AM [facility] MCV 88.2 79.0 - 98.0 FL LAB HEMETOLOGY METHOD 03/29/2024 9:23 AM [facility] MCH 28.3 27.0 - 32.0 pcg LAB HEMETOLOGY METHOD 03/29/2024 9:23 AM [facility] MCHC 32.2 32.0 - 37.0 g/dL LAB HEMETOLOGY METHOD 03/29/2024 9:23 AM [facility] RDW 17.6(H) 11.0 - 15.0 % LAB HEMETOLOGY METHOD 03/29/2024 9:23 AM [facility] Platelets 482(H) 130 - 400 K/mcL LAB HEMETOLOGY METHOD 03/29/2024 9:23 AM [facility] MPV 9.2 7.0 - 11.0 FL LAB HEMETOLOGY METHOD 03/29/2024 9:23 AM [facility] NRBC 0.0 <1.0 % LAB HEMETOLOGY METHOD 03/29/2024 9:23 AM [facility] NRBC Absolute 0.00 <0.10 K/mcL LAB HEMETOLOGY METHOD 03/29/2024 9:23 AM [facility] Neutrophils Relative 82.2 % LAB HEMETOLOGY METHOD 03/29/2024 9:23 AM [facility] Lymphocytes Relative 8.3 % LAB HEMETOLOGY METHOD 03/29/2024 9:23 AM [facility] Monocytes Relative 7.4 % LAB HEMETOLOGY METHOD 03/29/2024 9:23 AM [facility] Eosinophils Relative 0.3 % LAB HEMETOLOGY METHOD 03/29/2024 9:23 AM [facility] Basophils Relative 0.2 % LAB HEMETOLOGY METHOD 03/29/2024 9:23 AM [facility] Immature Granulocytes Relative 1.6 % LAB HEMETOLOGY METHOD 03/29/2024 9:23 AM [facility] Neutrophils Absolute 13.23(H) 1.50 - 7.00 K/mcL LAB HEMETOLOGY METHOD 03/29/2024 9:23 AM [facility] Lymphocytes Absolute 1.33 1.00 - 5.00 K/mcL LAB HEMETOLOGY METHOD 03/29/2024 9:23 AM [facility] Monocytes Absolute 1.19(H) 0.20 - 1.00 K/mcL LAB HEMETOLOGY METHOD 03/29/2024 9:23 AM [facility] Eosinophils Absolute 0.05 0.00 - 0.50 K/mcL LAB HEMETOLOGY METHOD 03/29/2024 9:23 AM [facility] Basophils Absolute 0.03 0.00 - 0.20 K/mcL LAB HEMETOLOGY METHOD 03/29/2024 9:23 AM [facility] Immature Granulocytes Absolute 0.25(H) 0.00 - 0.03 K/mcL LAB HEMETOLOGY METHOD 03/29/2024 9:23 AM EST [facility] Blood Venous blood specimen / Unknown Venipuncture / Unknown 03/29/2024 6:51 AM EST 03/29/2024 8:51 AM EST us Mookie Donovna MD LAB BLOOD ORDERABLES Final Result Performing Organization Address City/[facility]/ZIP Co de Phone Number [facility] [address] [place] [address], [place] [phone] * Hemoglobin A1c (03/29/2024 6:51 AM EST) Pathologist [facility] Hemoglobin A1C 6.1 <6.5 % LAB CHEMISTRY METHOD 03/29/2024 11:40 AM EST [facility] Mean Bld Glu Estim. 128 mg/dL LAB CHEMISTRY METHOD 03/29/2024 11:40 AM EST [facility] Blood Venous blood specimen / Unknown Venipuncture / Unknown 03/29/2024 6:51 AM EST 03/29/2024 8:51 AM EST us Mookie Donovan MD LAB BLOOD ORDERABLES Final Result Performing Organization Address [facility]/ZIP Co de Phone Number [facility] [address] [place] [address], [place] [phone] * (ABNORMAL) Comprehensive metabolic panel (03/29/2024 6:51 AM EST) [facility] Sodium 141 133 - 145 mmol/L LAB CHEMISTRY METHOD 03/29/2024 9:50 AM EST [facility] Potassium 3.0(L) 3.5 - 5.5 mmol/L LAB CHEMISTRY METHOD 03/29/2024 9:50 AM EST [facility] Chloride 107 96 - 110 mmol/L LAB CHEMISTRY METHOD 03/29/2024 9:50 AM EST [facility] CO2 24 21 - 32 mmol/L LAB CHEMISTRY METHOD 03/29/2024 9:50 AM [facility] Anion Gap 10 3 - 11 LAB CHEMISTRY METHOD 03/29/2024 9:50 AM [facility] Glucose 134(H) 70 - 100 mg/dL LAB CHEMISTRY METHOD 03/29/2024 9:50 AM [facility] BUN 13 5 - 25 mg/dL LAB CHEMISTRY METHOD 03/29/2024 9:50 AM [facility] Creatinine 0.46(L) 0.50 - 1.10 mg/dL LAB CHEMISTRY METHOD 03/29/2024 9:50 AM [facility] eGFR 95 >=60 mL/min/1. 73m2 LAB CHEMISTRY METHOD 03/29/2024 9:50 AM [facility] Comment:Calculation based on the??Chronic Kidney Disease Epidemiology Collaboration (CKD-EPI) equation refit??without adjustment for race. BUN/Creatinine Ratio 28.3 LAB CHEMISTRY METHOD 03/29/2024 9:50 AM [facility] Calcium 8.4(L) 8.5 - 10.5 mg/dL LAB CHEMISTRY METHOD 03/29/2024 9:50 AM [facility] AST (SGOT) 17 10 - 42 unit/L LAB CHEMISTRY METHOD 03/29/2024 9:50 AM [facility] ALT (SGPT) 13 10 - 60 unit/L LAB CHEMISTRY METHOD 03/29/2024 9:50 AM [facility] Alkaline Phosphatase 161(H) 42 - 121 unit/L LAB CHEMISTRY METHOD 03/29/2024 9:50 AM [facility] Total Protein 5.5(L) 6.0 - 8.0 g/dL LAB CHEMISTRY METHOD 03/29/2024 9:50 AM [facility] Albumin 2.0(L) 3.2 - 5.0 g/dL LAB CHEMISTRY METHOD 03/29/2024 9:50 AM [facility] Total Bilirubin 0.4 0.0 - 1.4 mg/dL LAB CHEMISTRY METHOD 03/29/2024 9:50 AM EST [facility] Blood Venous blood specimen / Unknown Venipuncture / Unknown 03/29/2024 6:51 AM EST 03/29/2024 8:51 AM EST us Mookie Donovan MD LAB BLOOD ORDERABLES Final Result [facility] [address] [place] [address], documented in this encounter Visit Diagnoses Diagnosis Unspecified atrial fibrillation (CMS/HCC) Type 2 diabetes mellitus without complications (CMS/HCC) Anemia, unspecified documented in this encounter Additional Health Concerns Infection Onset Date Last Indicated Resolved Time ESBL 04/25/2024 04/25/2024 documented as of this encounter Care Teams Fire Range Technician Relationship Specialty Start Date End Date Melissa Shannon MD [address] [place] [address] PCP - General Internal Medicine 04/02/13 documented as of this encounter
--- OUTSIDE RECORDS SUMMARY | 2024-06-08 09:54 | XMS_ITS | Encounter Summary ---
Author Organization [facility] [place] [address] Care Team Providers Care Underground Truck Operator Name Role Phone Melissa Shannon MD Primary Care Provider Encounter Details Date Type Department Care Team (Late st Contact Info) Description 04/02/2024 Lab Requisition [facility] - Main Lab 299 [facility] [employer] [place] [phone] Mookie Donovan MD [address] [place] [address] Anemia, unspecified Social History Tobacco Use Types [...] Description 07/19/2024 3:30 PM EDT Ancillary Procedure [facility] Cardiology [facility] [address] [place] [address] 07/31/2024 10:20 AM EDT Office Visit [facility] Cardiology [facility] [address] [place] [phone] Sis Dowell MD [address] [place] [address] documented as of this encounter Procedures Procedure Name Priority Date/Time Associated Diagnosis Comments MAGNESIUM Routine 04/03/2024 9:41 AM EST Anemia, unspecified COMPLETE BLOOD COUNT Routine 04/03/2024 8:41 AM EST Anemia, unspecified documented in this encounter Results * (ABNORMAL) Magnesium (04/03/2024 9:41 AM EST) Magnesium 1.5(L) 1.9 - 2.6 mg/dL LAB CHEMISTRY METHOD 04/03/2024 12:21 PM [facility] Blood Venous blood specimen / Unknown Venipuncture / Unknown 04/03/2024 9:41 AM EST 04/03/2024 10:44 AM EST us Mookie Donovan MD LAB BLOOD ORDERABLES Final Result [facility] [address] [place] [address], * (ABNORMAL) Complete blood count (04/03/2024 8:41 AM EST) WBC 12.7(H) 4.8 - 10.8 K/mcL LAB HEMETOLOGY METHOD 04/03/2024 11:05 AM [facility] RBC 3.30(L) 3.80 - 4.80 M/mcL LAB HEMETOLOGY METHOD 04/03/2024 11:05 AM [facility] Hemoglobin 9.8(L) 11.5 - 16.0 g/dL LAB HEMETOLOGY METHOD 04/03/2024 11:05 AM [facility] Hematocrit 29.3(L) 35.0 - 47.0 % LAB HEMETOLOGY METHOD 04/03/2024 11:05 AM [facility] MCV 88.5 79.0 - 98.0 FL LAB HEMETOLOGY METHOD 04/03/2024 11:05 AM [facility] MCH 29.6 27.0 - 32.0 pcg LAB HEMETOLOGY METHOD 04/03/2024 11:05 AM [facility] MCHC 33.4 32.0 - 37.0 g/dL LAB HEMETOLOGY METHOD 04/03/2024 11:05 AM [facility] RDW 17.3(H) 11.0 - 15.0 % LAB HEMETOLOGY METHOD 04/03/2024 11:05 AM [facility] Platelets 565(H) 130 - 400 K/mcL LAB HEMETOLOGY METHOD 04/03/2024 11:05 AM [facility] MPV 9.8 7.0 - 11.0 FL LAB HEMETOLOGY METHOD 04/03/2024 11:05 AM [facility] NRBC 0.0 <1.0 % LAB HEMETOLOGY METHOD 04/03/2024 11:05 AM [facility] NRBC Absolute 0.00 <0.10 K/mcL LAB HEMETOLOGY METHOD 04/03/2024 11:05 AM [facility] Blood Venous blood specimen / Unknown Venipuncture / Unknown 04/03/2024 8:41 AM EST 04/03/2024 10:46 AM EST us Mookie Donovan MD LAB BLOOD ORDERABLES Final Result [facility] [address] [place] [address], documented in this encounter Visit Diagnoses Diagnosis Anemia, unspecified documented in this encounter Additional Health Concerns Infection Onset Date Last Indicated Resolved Time ESBL 04/25/2024 04/25/2024 documented as of this encounter Care Teams Underground Truck Operator Relationship Specialty Start Date End Date Melissa Shannon MD [address] [place] [address] PCP - General Internal Medicine 04/02/13 documented as of this encounter
--- OUTSIDE RECORDS SUMMARY | 2024-06-08 09:54 | XMS_ITS | Encounter Summary ---
Author Organization [facility] [place] [address] Care Team Providers Care Automobile Rental Agent Name Role Phone Melissa Shannon MD Primary Care Provider Encounter Details Date Type Department Care Team (Late st Contact Info) Description 04/09/2024 Lab Requisition [facility] - Main Lab 299 [facility] [employer] [place] [phone] Mookie Donovan MD [address] [place] [address] Anemia, unspecified Social History Tobacco Use Types [...] Description 07/19/2024 3:30 PM EDT Ancillary Procedure [facility] Cardiology [facility] [address] [place] [address] 07/31/2024 10:20 AM EDT Office Visit [facility] Cardiology [facility] [address] [place] [phone] Sis Dowell MD [address] [place] [address] documented as of this encounter Procedures Procedure [...] Donovan MD LAB BLOOD ORDERABLES Final Result [facility] [address] [place] [address], * (ABNORMAL) Complete blood count (04/10/2024 5:20 [...] LAB HEMETOLOGY METHOD 04/10/2024 7:58 AM EST [facility] RDW 16.9(H) 11.0 - 15.0 % LAB HEMETOLOGY METHOD 04/10/2024 7:58 AM EST [facility] Platelets 330 130 - 400 K/mcL LAB HEMETOLOGY METHOD 04/10/2024 7:58 AM EST [facility] MPV 10.9 7.0 - 11.0 FL LAB HEMETOLOGY METHOD 04/10/2024 7:58 AM EST [facility] NRBC 0.0 <1.0 % LAB HEMETOLOGY METHOD 04/10/2024 7:58 AM EST [facility] NRBC Absolute 0.00 <0.10 K/mcL LAB HEMETOLOGY METHOD 04/10/2024 7:58 AM [facility] Blood Venous blood specimen / Unknown Venipuncture / Unknown 04/10/2024 5:20 AM EST 04/10/2024 7:34 AM EST Mookie Donovan MD LAB BLOOD ORDERABLES Final Result [facility] [address] [place] [address], documented in this encounter Visit Diagnoses Diagnosis Anemia, unspecified documented in this encounter Additional Health Concerns Infection Onset Date Last Indicated Resolved Time ESBL 04/25/2024 04/25/2024 documented as of this encounter Care Teams Automobile Rental Agent Relationship Specialty Start Date End Date Melissa Shannon MD [address] [place] [address] PCP - General Internal Medicine 04/02/13 documented as of this encounter
--- OUTSIDE RECORDS SUMMARY | 2024-06-08 09:54 | XMS_ITS | Encounter Summary ---
Author Organization [facility] [place] [address] Care Team Providers Care Sec Reporting Consultant Name Role Phone Melissa Shannon MD Primary Care Provider Encounter Details Date Type Department Care Team (Late st Contact Info) Description 04/16/[address] [facility] - Main Lab [address] [facility] [place] [phone] Mookie Donovan MD [address] [place] [address] Anemia, unspecified Social History Tobacco Use Types [...] EDT Ancillary Procedure [facility] Cardiology [facility] [address] [place] [address] 07/31/2024 10:20 AM EDT Office Visit [facility] Cardiology [facility] [address] [place] [phone] Sis Dowell MD [address] [place] [address] documented as of this encounter Procedures Procedure Name Priority Date/Time Associated Diagnosis Comments COMPLETE BLOOD COUNT Routine 04/17/2024 7:30 AM EST Anemia, unspecified BASIC METABOLIC PANEL Routine 04/17/2024 7:30 AM EST Anemia, unspecified documented in this encounter Results * (ABNORMAL) Basic metabolic panel (04/17/2024 7:30 AM EST) Sodium 133 133 - 145 mmol/L LAB CHEMISTRY METHOD 04/17/2024 10:43 AM [facility] Potassium 4.1 3.5 - 5.5 mmol/L LAB CHEMISTRY METHOD 04/17/2024 10:43 AM [facility] Chloride 95(L) 96 - 110 mmol/L LAB CHEMISTRY METHOD 04/17/2024 10:43 AM [facility] CO2 28 21 - 32 mmol/L LAB CHEMISTRY METHOD 04/17/2024 10:43 AM [facility] Anion Gap 10 3 - 11 LAB CHEMISTRY METHOD 04/17/2024 10:43 AM [facility] Glucose 126(H) 70 - 100 mg/dL LAB CHEMISTRY METHOD 04/17/2024 10:43 AM [facility] BUN 10 5 - 25 mg/dL LAB CHEMISTRY METHOD 04/17/2024 10:43 AM [facility] Creatinine 0.59 0.50 - 1.10 mg/dL LAB CHEMISTRY METHOD 04/17/2024 10:43 AM [facility] eGFR 90 >=60 mL/min/1. 73m2 LAB CHEMISTRY METHOD 04/17/2024 10:43 AM [facility] Comment:Calculation based on the??Chronic Kidney Disease Epidemiology Collaboration (CKD-EPI) equation refit??without adjustment for race. BUN/Creatinine Ratio 16.9 LAB CHEMISTRY METHOD 04/17/2024 10:43 AM [facility] Calcium 8.8 8.5 - 10.5 mg/dL LAB CHEMISTRY METHOD 04/17/2024 10:43 AM [facility] Blood Venous blood specimen / Unknown Venipuncture / Unknown 04/17/2024 7:30 AM EST 04/17/2024 10:07 AM EST Mookie Donovan MD LAB BLOOD ORDERABLES Final Result [facility] [address] [place] [address], * (ABNORMAL) Complete blood count (04/17/2024 7:30 AM EST) WBC 10.2 4.8 - 10.8 K/mcL LAB HEMETOLOGY METHOD 04/17/2024 10:33 AM [facility] RBC 3.70(L) 3.80 - 4.80 M/mcL LAB HEMETOLOGY METHOD 04/17/2024 10:33 AM [facility] Hemoglobin 10.0(L) 11.5 - 16.0 g/dL LAB HEMETOLOGY METHOD 04/17/2024 10:33 AM [facility] Hematocrit 32.0(L) 35.0 - 47.0 % LAB HEMETOLOGY METHOD 04/17/2024 10:33 AM [facility] MCV 87.2 79.0 - 98.0 FL LAB HEMETOLOGY METHOD 04/17/2024 10:33 AM [facility] MCH 27.2 27.0 - 32.0 pcg LAB HEMETOLOGY METHOD 04/17/2024 10:33 AM [facility] MCHC 31.3(L) 32.0 - 37.0 g/dL LAB HEMETOLOGY METHOD 04/17/2024 10:33 AM EST [facility] RDW 16.4(H) 11.0 - 15.0 % LAB HEMETOLOGY METHOD 04/17/2024 10:33 AM EST [facility] Platelets 191 130 - 400 K/mcL LAB HEMETOLOGY METHOD 04/17/2024 10:33 AM EST [facility] MPV 10.9 7.0 - 11.0 FL LAB HEMETOLOGY METHOD 04/17/2024 10:33 AM EST [facility] NRBC 0.0 <1.0 % LAB HEMETOLOGY METHOD 04/17/2024 10:33 AM EST [facility] NRBC Absolute 0.00 <0.10 K/mcL LAB HEMETOLOGY METHOD 04/17/2024 10:33 AM [facility] Blood Venous blood specimen / Unknown Venipuncture / Unknown 04/17/2024 7:30 AM EST 04/17/2024 10:07 AM EST us Mookie Donovan MD LAB BLOOD ORDERABLES Final Result [facility] [address] [place] [address], documented in this encounter Visit Diagnoses Diagnosis Anemia, unspecified documented in this encounter Additional Health Concerns Infection Onset Date Last Indicated Resolved Time ESBL 04/25/2024 04/25/2024 documented as of this encounter Care Teams Sec Reporting Consultant Relationship Specialty Start Date End Date Melissa Shannon MD [address] [place] [address] PCP - General Internal Medicine 04/02/13 documented as of this encounter
--- OUTSIDE RECORDS SUMMARY | 2024-06-08 09:54 | XMS_ITS | Encounter Summary ---
Author Organization [facility] [place] [address] Care Team Providers Care Spindle Repairer Name Role Phone Melissa Shannon MD Primary Care Provider Encounter Details Date Type Department Care Team (Late st Contact Info) Description 04/26/2024 Lab Requisition [facility] - Main Lab [address] [facility] [place] [phone] Mookie Donovan MD [address] [place] [address] Dysuria Social History Tobacco Use Types Packs/Day [...] Description 07/19/2024 3:30 PM EDT Ancillary Procedure [facility] Cardiology [facility] [address] [place] [address] 07/31/2024 10:20 AM EDT Office Visit [facility] Cardiology [facility] [address] [place] [phone] Sis Dowell MD [address] [place] [address] documented as of this encounter Procedures Procedure Name Priority Date/Time Associated Diagnosis Comments URINALYSIS WITH REFLEX MICROSCOPIC Routine 04/25/2024 1:30 PM EST Dysuria URINALYSIS WITH REFLEX MICROSCOPIC Routine 04/25/2024 1:30 PM EST Dysuria CULTURE URINE Routine 04/25/2024 1:30 PM EST Dysuria documented in this encounter Results * (ABNORMAL) Urinalysis with reflex microscopic (04/25/2024 1:30 PM EST) Specific [place] Urine 1.028 1.003 - 1.030 LAB URINALYSIS - AUTOMATED METHOD 04/26/2024 9:42 AM [facility] pH, Urine 5.5 5.0 - 8.0 pH LAB URINALYSIS - AUTOMATED METHOD 04/26/2024 9:42 AM [facility] Leukocytes, Urine Moderate(A) Negative LAB URINALYSIS - AUTOMATED METHOD 04/26/2024 9:42 AM [facility] Nitrite, Urine Negative Negative LAB URINALYSIS - AUTOMATED METHOD 04/26/2024 9:42 AM [facility] Protein, Urine 100(A) <=Trace mg/dL LAB URINALYSIS - AUTOMATED METHOD 04/26/2024 9:42 AM [facility] Glucose, Urine Negative Negative mg/dL LAB URINALYSIS - AUTOMATED METHOD 04/26/2024 9:42 AM [facility] Ketones, Urine Trace(A) Negative mg/dL LAB URINALYSIS - AUTOMATED METHOD 04/26/2024 9:42 AM [facility] Urobilinogen , Urine 1.0 0.2 - 1.0 mg/dL LAB URINALYSIS - AUTOMATED METHOD 04/26/2024 9:42 AM [facility] Bilirubin, Urine Negative Negative LAB URINALYSIS - AUTOMATED METHOD 04/26/2024 9:42 AM [facility] Blood, Urine Moderate(A) Negative LAB URINALYSIS - AUTOMATED METHOD 04/26/2024 9:42 AM [facility] RBC, Urine 7.4(H) 0 - 4 /HPF LAB URINALYSIS - AUTOMATED METHOD 04/26/2024 9:42 AM [facility] WBC, Urine 700.4(H) 0 - 4 /HPF LAB URINALYSIS - AUTOMATED METHOD 04/26/2024 9:42 AM [facility] Squamous Epithelial, Urine 48 0 - 60 /LPF LAB URINALYSIS - AUTOMATED METHOD 04/26/2024 9:42 AM [facility] Bacteria, Urine Many(A) Negative /HPF LAB URINALYSIS - AUTOMATED METHOD 04/26/2024 9:42 AM [facility] Hyaline Casts, Urine 1.0 0 - 3 /LPF LAB URINALYSIS - AUTOMATED METHOD 04/26/2024 9:42 AM [facility] Urine Urine specimen obtained by clean catch procedure / Unknown 04/25/2024 1:30 PM EST 04/26/2024 8:19 AM EST Mookie Donovan MD LAB URINE ORDERABLES Final Result [facility] [address] [place] [address], * (ABNORMAL) Culture urine (04/25/2024 1:30 PM EST) Culture, Urine >100,000 CFU/mL Escherichia coli ESBL(A) [place] 04/30/2024 9:38 AM [facility] Comment: THIS ORGANISM IS POSITIVE [...] pneumoniae ESBL(A) [place] 04/30/2024 9:38 AM EST [facility] Comment: THIS ORGANISM IS POSITIVE [...] 1:30 PM EST 04/26/2024 8:19 AM EST [facility] - 04/30/2024 9:38 AM [...] GENERAL ORDERABLES Final Result Performing Organization Address City/State/[facility] Co de Phone Number [facility] ([facility]) [facility] [address] [place] [address], documented in this encounter Visit Diagnoses Diagnosis Dysuria documented in this encounter Additional Health Concerns Infection Onset Date Last Indicated Resolved Time ESBL 04/25/2024 04/25/2024 documented as of this encounter Care Teams Spindle Repairer Relationship Specialty Start Date End Date Melissa Shannon MD [address] [place] [address] PCP - General Internal Medicine 04/02/13 documented as of this encounter
--- OUTSIDE RECORDS SUMMARY | 2024-06-08 09:54 | XMS_ITS | Clinical Summary ---
Author Organization [address] [facility] Address [address] [place] [address] Phone Care Team Providers Care Doctor Of Podiatry Name Role Phone Melissa Shannon MD Primary [...] mometasone (NASONEX) 50 mcg/actuation nasal spray 1 [place] by Nasal route at bedtime. Active montelukast [...] her to speak with her PCP and/your land inspector given her recent COVID infection as well [...] For now though, we will continue her beta-ebrenice. Echocardiogram has also been ordered. I will [...] Department Care Team Description 04/26/2024 Lab Requisition [facility] Main Lab [address] [place] [address] Mookie Donovan MD Anemia, unspecified; Type 2 diabetes mellitus without complications ([facility]) 04/26/2024 Lab Requisition [facility] Main Lab [address] [place] [address] Mookie Donovan MD Dysuria 04/16/2024 Lab Requisition [facility] Main Lab [address] [place] [address] Mookie Donovan MD Anemia, unspecified 04/09/2024 Lab Requisition [facility] Lab [address] [place] [address] Mookie Donovan MD Anemia, unspecified 04/06/2024 Lab Requisition [facility] Lab [address] [place] [address] Mookie Donovan MD Unspecified dementia, unspecified severity, without behavioral disturbance, psychotic disturbance, mood disturbance, and anxiety (CMS/HCC); Unspecified infectious disease 04/03/2024 Telephone [facility] - [address] [place] [address] Sandrita Cox NP 04/02/2024 Lab Requisition [facility] Lab [address] [place] [address] Mookie Donovan MD Anemia, unspecified 03/29/2024 Lab Requisition [facility] Lab [address] [place] [address] Mookie Donovan MD Unspecified atrial [...] Description 07/19/2024 3:30 PM EDT Ancillary Procedure [facility] - [address] [place] [address] 07/31/2024 10:20 AM EDT Office Visit [facility] - [address] [place] [address] Sis Dowell MD [address] [place] [address] Health Maintenance Due Date Last Done Comments Diabetes: Annual Foot Exam 1950 Diabetes: Annual Retina Eye Exam 1950 Pneumococcal Vaccine: 50+ Years (1 of 2 - PCV) 01/09/1960 RSV Immunization Patients 60+ Years Old (1 [...] patient's age to complete this topic Meningococcal B Vacine Aged Out No lo nger eligible based on patient's age to complete [...] K/mcL LAB HEMETOLOGY METHOD 04/26/2024 8:13 AM [facility] RBC 3.60(L) 3.80 - 4.80 M/mcL LAB HEMETOLOGY METHOD 04/26/2024 8:13 AM [facility] Hemoglobin 9.7(L) 11.5 - 16.0 g/dL LAB HEMETOLOGY METHOD 04/26/2024 8:13 AM [facility] Hematocrit 31.6(L) 35.0 - 47.0 % LAB HEMETOLOGY METHOD 04/26/2024 8:13 AM [facility] MCV 88.3 79.0 - 98.0 FL LAB HEMETOLOGY METHOD 04/26/2024 8:13 AM [facility] MCH 27.1 27.0 - 32.0 pcg LAB HEMETOLOGY METHOD 04/26/2024 8:13 AM [facility] MCHC 30.7(L) 32.0 - 37.0 g/dL LAB HEMETOLOGY METHOD 04/26/2024 8:13 AM [facility] RDW 17.0(H) 11.0 - 15.0 % LAB HEMETOLOGY METHOD 04/26/2024 8:13 AM [facility] Platelets 215 130 - 400 K/mcL LAB HEMETOLOGY METHOD 04/26/2024 8:13 AM [facility] MPV 10.8 7.0 - 11.0 FL LAB HEMETOLOGY METHOD 04/26/2024 8:13 AM [facility] NRBC 0.0 <1.0 % LAB HEMETOLOGY METHOD 04/26/2024 8:13 AM EST [facility] NRBC Absolute 0.00 <0.10 K/mcL LAB HEMETOLOGY METHOD 04/26/2024 8:13 AM EST [facility] Blood Venous blood specimen / Unknown Venipuncture / Unknown 04/26/2024 6:34 AM EST 04/26/2024 7:53 AM EST us Mookie Donovan MD LAB BLOOD ORDERABLES Final Result [facility] [address] [place] [address], [place] [phone] * (ABNORMAL) Triiodothyronine free (04/26/2024 6:34 AM EST) T3, Free 223(L) 230 - 420 pcg/dL LAB CHEMISTRY METHOD 04/26/2024 8:47 AM EST [facility] Blood Venous blood specimen / Unknown Venipuncture / Unknown 04/26/2024 6:34 AM EST 04/26/2024 7:53 AM EST us Mookie Donovan MD LAB BLOOD ORDERABLES Final Result [facility] [address] [place] [address], [place] [phone] * (ABNORMAL) Thyroid stimulating hormone (04/26/2024 6:34 AM EST) TSH 6.69(H) 0.40 - 4.00 mcIU/mL LAB CHEMISTRY METHOD 04/26/2024 8:48 AM EST [facility] Blood Venous blood specimen / Unknown Venipuncture / Unknown 04/26/2024 6:34 AM EST 04/26/2024 7:53 AM EST us Mookie Donovan MD LAB BLOOD ORDERABLES Final Result [facility] [address] [place] [address], [place] [phone] * Thyroxine free (04/26/2024 6:34 AM EST) [facility] Free T4 1.25 0.70 - 1.80 ng/dL LAB CHEMISTRY METHOD 04/26/2024 8:46 AM [facility] Blood Venous blood specimen / Unknown Venipuncture / Unknown 04/26/2024 6:34 AM EST 04/26/2024 7:53 AM EST us Mookie Donovan MD LAB BLOOD ORDERABLES Final Result Performing Organization Address [facility] Co de Phone Number [facility] [address] [place] [address], [place] [phone] * (ABNORMAL) Basic metabolic panel (04/26/2024 6:34 AM EST) Only the most recent of3 resultswithin the time period is included. [facility] Sodium 137 133 - 145 mmol/L LAB CHEMISTRY METHOD 04/26/2024 8:38 AM [facility] Potassium 3.7 3.5 - 5.5 mmol/L LAB CHEMISTRY METHOD 04/26/2024 8:38 AM [facility] Chloride 101 96 - 110 mmol/L LAB CHEMISTRY METHOD 04/26/2024 8:38 AM [facility] CO2 34(H) 21 - 32 mmol/L LAB CHEMISTRY METHOD 04/26/2024 8:38 AM [facility] Anion Gap 2(L) 3 - 11 LAB CHEMISTRY METHOD 04/26/2024 8:38 AM [facility] Glucose 133(H) 70 - 100 mg/dL LAB CHEMISTRY METHOD 04/26/2024 8:38 AM [facility] BUN 15 5 - 25 mg/dL LAB CHEMISTRY METHOD 04/26/2024 8:38 AM [facility] Creatinine 0.60 0.50 - 1.10 mg/dL LAB CHEMISTRY METHOD 04/26/2024 8:38 AM [facility] eGFR 89 >=60 mL/min/1. 73m2 LAB CHEMISTRY METHOD 04/26/2024 8:38 AM [facility] Comment:Calculation based on the??Chronic Kidney Disease Epidemiology Collaboration (CKD-EPI) equation refit??without adjustment for race. BUN/Creatinine Ratio 25.0 LAB CHEMISTRY METHOD 04/26/2024 8:38 AM [facility] Calcium 8.7 8.5 - 10.5 mg/dL LAB CHEMISTRY METHOD 04/26/2024 8:38 AM [facility] Blood Venous blood specimen / Unknown Venipuncture / Unknown 04/26/2024 6:34 AM EST 04/26/2024 7:53 AM EST us Mookie Donovan MD LAB BLOOD ORDERABLES Final Result [facility] [address] [place] [address], * (ABNORMAL) Urinalysis with reflex microscopic (04/25/2024 1:30 PM EST) Specific [place] Urine 1.028 1.003 - 1.030 LAB URINALYSIS - AUTOMATED METHOD 04/26/2024 9:42 AM [facility] pH, Urine 5.5 5.0 - 8.0 pH LAB URINALYSIS - AUTOMATED METHOD 04/26/2024 9:42 AM [facility] Leukocytes, Urine Moderate(A) Negative LAB URINALYSIS - AUTOMATED METHOD 04/26/2024 9:42 AM [facility] Nitrite, Urine Negative Negative LAB URINALYSIS - AUTOMATED METHOD 04/26/2024 9:42 AM [facility] Protein, Urine 100(A) <=Trace mg/dL LAB URINALYSIS - AUTOMATED METHOD 04/26/2024 9:42 AM [facility] Glucose, Urine Negative Negative mg/dL LAB URINALYSIS - AUTOMATED METHOD 04/26/2024 9:42 AM [facility] Ketones, Urine Trace(A) Negative mg/dL LAB URINALYSIS - AUTOMATED METHOD 04/26/2024 9:42 AM [facility] Urobilinogen , Urine 1.0 0.2 - 1.0 mg/dL LAB URINALYSIS - AUTOMATED METHOD 04/26/2024 9:42 AM [facility] Bilirubin, Urine Negative Negative LAB URINALYSIS - AUTOMATED METHOD 04/26/2024 9:42 AM [facility] Blood, Urine Moderate(A) Negative LAB URINALYSIS - AUTOMATED METHOD 04/26/2024 9:42 AM [facility] RBC, Urine 7.4(H) 0 - 4 /HPF LAB URINALYSIS - AUTOMATED METHOD 04/26/2024 9:42 AM [facility] WBC, Urine 700.4(H) 0 - 4 /HPF LAB URINALYSIS - AUTOMATED METHOD 04/26/2024 9:42 AM [facility] Squamous Epithelial, Urine 48 0 - 60 /LPF LAB URINALYSIS - AUTOMATED METHOD 04/26/2024 9:42 AM [facility] Bacteria, Urine Many(A) Negative /HPF LAB URINALYSIS - AUTOMATED METHOD 04/26/2024 9:42 AM [facility] Hyaline Casts, Urine 1.0 0 - 3 /LPF LAB URINALYSIS - AUTOMATED METHOD 04/26/2024 9:42 AM [facility] Urine Urine specimen obtained by clean catch procedure / Unknown 04/25/2024 1:30 PM EST 04/26/2024 8:19 AM EST us Mookie Donovan MD LAB URINE ORDERABLES Final Result [facility] [address] [place] [address], [place] [phone] * (ABNORMAL) Culture urine (04/25/2024 1:30 PM EST) Culture, Urine >100,000 CFU/mL Escherichia coli ESBL(A) WARREN 04/30/2024 9:38 AM EST [facility] Comment: THIS ORGANISM IS POSITIVE [...] pneumoniae ESBL(A) [place]EN 04/30/2024 9:38 AM EST [facility] Comment: THIS ORGANISM IS POSITIVE [...] 1:30 PM EST 04/26/2024 8:19 AM EST Narrative [facility] - 04/30/2024 9:38 AM EST Additional colony types present in insignificant amounts. Organism Antibiotic Method Susceptibility Escherichia coli ESBL Amoxicillin/Clavulanate WARREN 8 ug/ml: Susceptible Escherichia coli ESBL Ampicillin/Sulbactam WARREN >=32 ug/ml: Resistant Escherichia coli ESBL Piperacillin/Tazobactam WARREN <=4 ug/ml: Susceptible Escherichia coli ESBL Cefazolin (Urine) AWRREN >=32 ug/ml: Resistant Escherichia coli ESBL Cefoxitin [...] LAB MICROBIOLOGY - GENERAL ORDERABLES Final Result [facility] H[facility]PITAL LAB [address] [place] [address], * Clostridium difficile toxin (04/05/2024 5:00 PM EST) [facility] Clostridium difficile GDH Antigen Negative Negative 04/06/2024 1:38 PM EST [facility] C difficile Toxins A+B, EIA Negative Negative 04/06/2024 1:38 PM EST [facility] Comment:NEGATIVE FOR TOXIN P RODUCING CLOSTRIDIOIDES DIFFICILE, NO ADDITIONAL TESTING IS NECESSARY. Stool Rectum structure / Unknown 04/05/2024 5:00 PM EST 04/06/2024 9:25 AM EST us Mookie Donovan MD LAB MICROBIOLOGY - GENERAL ORDERABLES Final Result Performing Organization Address [facility]/ZIP Co de Phone Number [facility] [address] [place] [address], [place] [phone] * (ABNORMAL) Magnesium (04/03/2024 9:41 AM EST) [facility] Magnesium 1.5(L) 1.9 - 2.6 mg/dL LAB CHEMISTRY METHOD 04/03/2024 12:21 PM EST [facility] Blood Venous blood specimen / Unknown Venipuncture / Unknown 04/03/2024 9:41 AM EST 04/03/2024 10:44 AM EST us Mookie Donovan MD LAB BLOOD ORDERABLES Final Result [facility] [address] [place] [address], [place] [phone] * (ABNORMAL) CBC auto differential (03/29/2024 6:51 AM EST) [facility] WBC 16.1(H) 4.8 - 10.8 K/[facility] LAB HEMETOLOGY METHOD 03/29/2024 9:23 AM EST [facility] RBC 3.20(L) 3.80 - 4.80 M/[facility] LAB HEMETOLOGY METHOD 03/29/2024 9:23 AM [facility] Hemoglobin 9.1(L) 11.5 - 16.0 g/dL LAB HEMETOLOGY METHOD 03/29/2024 9:23 AM [facility] Hematocrit 28.3(L) 35.0 - 47.0 % LAB HEMETOLOGY METHOD 03/29/2024 9:23 AM [facility] MCV 88.2 79.0 - 98.0 FL LAB HEMETOLOGY METHOD 03/29/2024 9:23 AM [facility] MCH 28.3 27.0 - 32.0 pcg LAB HEMETOLOGY METHOD 03/29/2024 9:23 AM [facility] MCHC 32.2 32.0 - 37.0 g/dL LAB HEMETOLOGY METHOD 03/29/2024 9:23 AM [facility] RDW 17.6(H) 11.0 - 15.0 % LAB HEMETOLOGY METHOD 03/29/2024 9:23 AM [facility] Platelets 482(H) 130 - 400 K/[facility] LAB HEMETOLOGY METHOD 03/29/2024 9:23 AM [facility] MPV 9.2 7.0 - 11.0 FL LAB HEMETOLOGY METHOD 03/29/2024 9:23 AM [facility] NRBC 0.0 <1.0 % LAB HEMETOLOGY METHOD 03/29/2024 9:23 AM [facility] NRBC Absolute 0.00 <0.10 K/mcL LAB HEMETOLOGY METHOD 03/29/2024 9:23 AM [facility] Neutrophils Relative 82.2 % LAB HEMETOLOGY METHOD 03/29/2024 9:23 AM [facility] Lymphocytes Relative 8.3 % LAB HEMETOLOGY METHOD 03/29/2024 9:23 AM EST [facility] Monocytes Relative 7.4 % LAB HEMETOLOGY METHOD 03/29/2024 9:23 AM [facility] Eosinophils Relative 0.3 % LAB HEMETOLOGY METHOD 03/29/2024 9:23 AM [facility] Basophils Relative 0.2 % LAB HEMETOLOGY METHOD 03/29/2024 9:23 AM [facility] Immature Granulocytes Relative 1.6 % LAB HEMETOLOGY METHOD 03/29/2024 9:23 AM [facility] Neutrophils Absolute 13.23(H) 1.50 - 7.00 K/mcL LAB HEMETOLOGY METHOD 03/29/2024 9:23 AM [facility] Lymphocytes Absolute 1.33 1.00 - 5.00 K/mcL LAB HEMETOLOGY METHOD 03/29/2024 9:23 AM [facility] Monocytes Absolute 1.19(H) 0.20 - 1.00 K/mcL LAB HEMETOLOGY METHOD 03/29/2024 9:23 AM [facility] Eosinophils Absolute 0.05 0.00 - 0.50 K/mcL LAB HEMETOLOGY METHOD 03/29/2024 9:23 AM [facility] Basophils Absolute 0.03 0.00 - 0.20 K/mcL LAB HEMETOLOGY METHOD 03/29/2024 9:23 AM [facility] Immature Granulocytes Absolute 0.25(H) 0.00 - 0.03 K/mcL LAB HEMETOLOGY METHOD 03/29/2024 9:23 AM [facility] Blood Venous blood specimen / Unknown Venipuncture / Unknown 03/29/2024 6:51 AM EST 03/29/2024 8:51 AM EST Mookie Donovan MD LAB BLOOD ORDERABLES Final Result [facility] [address] [place] [address], [place] [phone] * Lavender tube (03/29/2024 6:51 AM EST) Pathologist [facility] Extra Tube Hold for add-ons. 03/29/2024 11:01 AM EST [facility] Comment:Auto resulted. Blood Venous blood specimen / Unknown 03/29/2024 6:51 AM EST 03/29/2024 9:08 AM EST us Mookie Donovan MD LAB BLOOD ORDERABLES Final Result [facility] [address] [place] [address], * Hemoglobin A1c (03/29/2024 6:51 AM EST) [facility] Hemoglobin A1C 6.1 <6.5 % LAB CHEMISTRY METHOD 03/29/2024 11:40 AM EST [facility] Mean Bld Glu Estim. 128 mg/dL LAB CHEMISTRY METHOD 03/29/2024 11:40 AM EST [facility] Blood Venous blood specimen / Unknown Venipuncture / Unknown 03/29/2024 6:51 AM EST 03/29/2024 8:51 AM EST us Mookie Donovan MD LAB BLOOD ORDERABLES Final Result [facility] [address] [place] [address], [place] [phone] * (ABNORMAL) Comprehensive metabolic panel (03/29/2024 6:51 AM EST) [facility] Sodium 141 133 - 145 mmol/L LAB CHEMISTRY METHOD 03/29/2024 9:50 AM EST [facility] Potassium 3.0(L) 3.5 - 5.5 mmol/L LAB CHEMISTRY METHOD 03/29/2024 9:50 AM [facility] Chloride 107 96 - 110 mmol/L LAB CHEMISTRY METHOD 03/29/2024 9:50 AM [facility] CO2 24 21 - 32 mmol/L LAB CHEMISTRY METHOD 03/29/2024 9:50 AM [facility] Anion Gap 10 3 - 11 LAB CHEMISTRY METHOD 03/29/2024 9:50 AM [facility] Glucose 134(H) 70 - 100 mg/dL LAB CHEMISTRY METHOD 03/29/2024 9:50 AM [facility] BUN 13 5 - 25 mg/dL LAB CHEMISTRY METHOD 03/29/2024 9:50 AM [facility] Creatinine 0.46(L) 0.50 - 1.10 mg/dL LAB CHEMISTRY METHOD 03/29/2024 9:50 AM [facility] eGFR 95 >=60 mL/min/1. 73m2 LAB CHEMISTRY METHOD 03/29/2024 9:50 AM [facility] Comment:Calculation based on the??Chronic Kidney Disease Epidemiology Collaboration (CKD-EPI) equation refit??without adjustment for race. BUN/Creatinine Ratio 28.3 LAB CHEMISTRY METHOD 03/29/2024 9:50 AM [facility] Calcium 8.4(L) 8.5 - 10.5 mg/dL LAB CHEMISTRY METHOD 03/29/2024 9:50 AM [facility] AST (SGOT) 17 10 - 42 unit/L LAB CHEMISTRY METHOD 03/29/2024 9:50 AM [facility] ALT (SGPT) 13 10 - 60 unit/L LAB CHEMISTRY METHOD 03/29/2024 9:50 AM [facility] Alkaline Phosphatase 161(H) 42 - 121 unit/L LAB CHEMISTRY METHOD 03/29/2024 9:50 AM [facility] Total Protein 5.5(L) 6.0 - 8.0 g/dL LAB CHEMISTRY METHOD 03/29/2024 9:50 AM EST [facility] Albumin 2.0(L) 3.2 - 5.0 g/dL LAB CHEMISTRY METHOD 03/29/2024 9:50 AM EST [facility] Total Bilirubin 0.4 0.0 - 1.4 mg/dL LAB CHEMISTRY METHOD 03/29/2024 9:[address] [facility] Blood Venous blood specimen / Unknown Venipuncture / Unknown 03/29/2024 6:51 AM EST 03/29/2024 8:51 AM EST us Mookie Donovan MD LAB BLOOD ORDERABLES Final Result [facility] [address] [place] [address], from Last 3 Months Additional Health Concerns Infection Onset Date Last Indicated ESBL 04/25/2024 04/25/2024 Insurance MEDICAID - [place] MEDICARE Care Teams Doctor Of Podiatry Relationship Specialty Start Date End Date Melissa Shannon MD [address] [facility] [place] [address] PCP - General Internal Medicine 04/02/13
--- OUTSIDE RECORDS SUMMARY | 2024-06-08 09:54 | XMS_ITS | Encounter Summary ---
Author Organization [facility] [place] [address] Care Team Providers Care Apprentice Photographer Name Role Phone Melissa Shannon MD Primary Care Provider Encounter Details Date Type Department Care Team (Late st Contact Info) Description 04/06/2024 Lab Requisition [facility] - Main Lab [address] [facility] [place] [phone] Mookie Donovan MD [address] [place] [address] Unspecified dementia, unspecified severity, without behavioral disturbance, [...] Description 07/19/2024 3:30 PM EDT Ancillary Procedure [facility] - [address] [place] [id number] 07/31/2024 10:20 AM EDT Office Visit [facility] - [address] [address] Sis Dowell MD 300 [facility] [address] [place] [address] documented as of this encounter Procedures Procedure Name Priority Date/Time Associated Diagnosis Comments CLOSTRIDIUM DIFFICILE TOXIN Routine 04/05/2024 5:00 PM EST Unspecified dementia, unspecified severity, without behavioral disturbance, psychotic disturbance, mood disturbance, and anxiety (CMS/HCC) Unspecified infectious disease documented in this encounter Results * Clostridium difficile toxin (04/05/2024 5:00 PM EST) Clostridium difficile GDH Antigen Negative Negative 04/06/2024 1:38 PM EST [facility] C difficile Toxins A+B, EIA Negative Negative 04/06/2024 1:38 PM EST [facility] Comment:NEGATIVE FOR TOXIN P RODUCING CLOSTRIDIOIDES DIFFICILE, NO ADDITIONAL TESTING IS NECESSARY. Stool Rectum structure / Unknown 04/05/2024 5:00 PM EST 04/06/2024 9:25 AM EST Mookie Donovan MD LAB MICROBIOLOGY - GENERAL ORDERABLES Final Result [facility] [address] [place] [address], documented in this encounter Visit Diagnoses Diagnosis Unspecified dementia, unspecified severity, without behavioral disturbance, psychotic disturbance, mood disturbance, and anxiety (CMS/HCC) Unspecified infectious disease documented in this encounter Additional Health Concerns Infection Onset Date Last Indicated Resolved Time ESBL 04/25/2024 04/25/2024 documented as of this encounter Care Teams Apprentice Photographer Relationship Specialty Start Date End Date Melissa Shannon MD [address] [facility] [place] [address] PCP - General Internal Medicine 04/02/13 documented as of this encounter
== END 2024-06-08 10:18 | disposition home or self-care (01) ==
LOC: HO.HMCC 09:28
PROVIDERS: PCP Internal Medicine; Visit Provider Internal Medicine
DX: E11.9 Type 2 diabetes mellitus without complications (principal); E78.00 Pure hypercholesterolemia, unspecified; D50.9 Iron deficiency anemia, unspecified; E83.42 Hypomagnesemia; R53.1 Weakness

== ENCOUNTER → 2024-06-08 09:28 | Outpatient (BNVA) | payer MEDICARE, MEDICAID, SELFPAY | PROVIDERS: PCP Internal Medicine; Visit Provider Internal Medicine ==

== ENCOUNTER 2024-06-21 08:00 | Outpatient (REF) | payer MEDICARE, MEDICAID, SELFPAY ==
--- OUTSIDE RECORDS SUMMARY | 2024-06-21 11:27 | XMS_ITS | Clinical Summary ---
Author Organization [address] [facility] Address [address] [place] [address] Phone Care Team Providers Care Status Controller Name Role Phone Melissa Shannon MD Primary [...] mometasone (NASONEX) 50 mcg/actuation nasal spray 1 [place] by Nasal route at bedtime. Active montelukast [...] her to speak with her PCP and/your senior informatica etl developer given her recent COVID infection as well [...] Department Care Team Description 04/26/2024 Lab Requisition [facility] Main Lab [address] [place] [address] Mookie Donovan MD Anemia, unspecified; Type 2 diabetes mellitus without complications ([facility]) 04/26/2024 Lab Requisition [facility] Main Lab [address] [place] [address] Mookie Donovan MD Dysuria 04/16/2024 Lab Requisition [facility] Main Lab [address] [place] [address] Mookie Donovan MD Anemia, unspecified 04/09/2024 Lab Requisition [facility] Lab [address] [place] [address] Mookie Donovan MD Anemia, unspecified 04/06/2024 Lab Requisition [facility] Lab [address] [place] [address] Mookie Donovan MD Unspecified dementia, unspecified severity, without behavioral disturbance, psychotic disturbance, mood disturbance, and anxiety (CMS/HCC); Unspecified infectious disease 04/03/2024 Telephone [facility] - [address] [place] [address] Sandrita Cox NP 04/02/2024 Lab Requisition [facility] Lab [address] [place] [address] Mookie Donovan MD Anemia, unspecified 03/29/2024 Lab Requisition [facility] Lab [address] [place] [address] Mookie Donovan MD Unspecified atrial [...] Description 07/19/2024 3:30 PM EDT Ancillary Procedure [facility] Cardiology [facility] - [address] [place] [address] 07/31/2024 10:20 AM EDT Office Visit [facility] - [address] [place] [address] Sis Dowell MD [address] [place] [address] Health Maintenance Due Date Last Done Comments [...] K/mcL LAB HEMETOLOGY METHOD 04/26/2024 8:13 AM [facility] RBC 3.60(L) 3.80 - 4.80 M/mcL LAB HEMETOLOGY METHOD 04/26/2024 8:13 AM [facility] LAB Hemoglobin 9.7(L) 11.5 - 16.0 g/dL LAB HEMETOLOGY METHOD 04/26/2024 8:13 AM [facility] LAB Hematocrit 31.6(L) 35.0 - 47.0 % LAB HEMETOLOGY METHOD 04/26/2024 8:13 AM [facility] LAB MCV 88.3 79.0 - 98.0 FL LAB HEMETOLOGY METHOD 04/26/2024 8:13 AM [facility] LAB MCH 27.1 27.0 - 32.0 pcg LAB HEMETOLOGY METHOD 04/26/2024 8:13 AM [facility] LAB MCHC 30.7(L) 32.0 - 37.0 g/dL LAB HEMETOLOGY METHOD 04/26/2024 8:13 AM [facility] LAB RDW 17.0(H) 11.0 - 15.0 % LAB HEMETOLOGY METHOD 04/26/2024 8:13 AM [facility] LAB Platelets 215 130 - 400 K/mcL LAB HEMETOLOGY METHOD 04/26/2024 8:13 AM [facility] LAB MPV 10.8 7.0 - 11.0 FL LAB HEMETOLOGY METHOD 04/26/2024 8:13 AM [facility] LAB NRBC 0.0 <1.0 % LAB HEMETOLOGY METHOD 04/26/2024 8:13 AM EST [facility] NRBC Absolute 0.00 <0.10 K/mcL LAB HEMETOLOGY METHOD 04/26/2024 8:13 AM EST [facility] Blood Venous blood specimen / Unknown Venipuncture / Unknown 04/26/2024 6:34 AM EST 04/26/2024 7:53 AM EST us Mookie Donovan MD LAB BLOOD ORDERABLES Final Result [facility] [address] [place] [address], [place] [phone] * (ABNORMAL) Triiodothyronine free (04/26/2024 6:34 AM EST) T3, Free 223(L) 230 - 420 pcg/dL LAB CHEMISTRY METHOD 04/26/2024 8:47 AM EST [facility] Blood Venous blood specimen / Unknown Venipuncture / Unknown 04/26/2024 6:34 AM EST 04/26/2024 7:53 AM EST us Mookie Donovan MD LAB BLOOD ORDERABLES Final Result [facility] [address] [place] [address], [place] [phone] * (ABNORMAL) Thyroid stimulating hormone (04/26/2024 6:34 AM EST) TSH 6.69(H) 0.40 - 4.00 mcIU/mL LAB CHEMISTRY METHOD 04/26/2024 8:48 AM EST [facility] Blood Venous blood specimen / Unknown Venipuncture / Unknown 04/26/2024 6:34 AM EST 04/26/2024 7:53 AM EST us Mookie Donovan MD LAB BLOOD ORDERABLES Final Result [facility] [address] [place] [address], [place] [phone] * Thyroxine free (04/26/2024 6:34 AM EST) [facility] Free T4 1.25 0.70 - 1.80 ng/dL LAB CHEMISTRY METHOD 04/26/2024 8:46 AM [facility] Blood Venous blood specimen / Unknown Venipuncture / Unknown 04/26/2024 6:34 AM EST 04/26/2024 7:53 AM EST us Mookie Donovan MD LAB BLOOD ORDERABLES Final Result Performing Organization Address [facility] Co de Phone Number [facility] [address] [place] [address], [place] [phone] * (ABNORMAL) Basic metabolic panel (04/26/2024 6:34 AM EST) Only the most recent of3 resultswithin the time period is included. [facility] Sodium 137 133 - 145 mmol/L LAB CHEMISTRY METHOD 04/26/2024 8:38 AM [facility] Potassium 3.7 3.5 - 5.5 mmol/L LAB CHEMISTRY METHOD 04/26/2024 8:38 AM [facility] Chloride 101 96 - 110 mmol/L LAB CHEMISTRY METHOD 04/26/2024 8:38 AM [facility] CO2 34(H) 21 - 32 mmol/L LAB CHEMISTRY METHOD 04/26/2024 8:38 AM [facility] Anion Gap 2(L) 3 - 11 LAB CHEMISTRY METHOD 04/26/2024 8:38 AM [facility] Glucose 133(H) 70 - 100 mg/dL LAB CHEMISTRY METHOD 04/26/2024 8:38 AM [facility] BUN 15 5 - 25 mg/dL LAB CHEMISTRY METHOD 04/26/2024 8:38 AM [facility] Creatinine 0.60 0.50 - 1.10 mg/dL LAB CHEMISTRY METHOD 04/26/2024 8:38 AM [facility] eGFR 89 >=60 mL/min/1. 73m2 LAB CHEMISTRY METHOD 04/26/2024 8:38 AM [facility] Comment:Calculation based on the??Chronic Kidney Disease Epidemiology Collaboration (CKD-EPI) equation refit??without adjustment for race. BUN/Creatinine Ratio 25.0 LAB CHEMISTRY METHOD 04/26/2024 8:38 AM [facility] Calcium 8.7 8.5 - 10.5 mg/dL LAB CHEMISTRY METHOD 04/26/2024 8:38 AM [facility] Blood Venous blood specimen / Unknown Venipuncture / Unknown 04/26/2024 6:34 AM EST 04/26/2024 7:53 AM EST us Mookie Donovan MD LAB BLOOD ORDERABLES Final Result [facility] [address] [place] [address], * (ABNORMAL) Urinalysis with reflex microscopic (04/25/2024 1:30 PM EST) Specific [place] Urine 1.028 1.003 - 1.030 LAB URINALYSIS - AUTOMATED METHOD 04/26/2024 9:42 AM [facility] pH, Urine 5.5 5.0 - 8.0 pH LAB URINALYSIS - AUTOMATED METHOD 04/26/2024 9:42 AM [facility] Leukocytes, Urine Moderate(A) Negative LAB URINALYSIS - AUTOMATED METHOD 04/26/2024 9:42 AM [facility] Nitrite, Urine Negative Negative LAB URINALYSIS - AUTOMATED METHOD 04/26/2024 9:42 AM [facility] Protein, Urine 100(A) <=Trace mg/dL LAB URINALYSIS - AUTOMATED METHOD 04/26/2024 9:42 AM [facility] Glucose, Urine Negative Negative mg/dL LAB URINALYSIS - AUTOMATED METHOD 04/26/2024 9:42 AM [facility] Ketones, Urine Trace(A) Negative mg/dL LAB URINALYSIS - AUTOMATED METHOD 04/26/2024 9:42 AM [facility] Urobilinogen , Urine 1.0 0.2 - 1.0 mg/dL LAB URINALYSIS - AUTOMATED METHOD 04/26/2024 9:42 AM [facility] Bilirubin, Urine Negative Negative LAB URINALYSIS - AUTOMATED METHOD 04/26/2024 9:42 AM [facility] Blood, Urine Moderate(A) Negative LAB URINALYSIS - AUTOMATED METHOD 04/26/2024 9:42 AM [facility] RBC, Urine 7.4(H) 0 - 4 /HPF LAB URINALYSIS - AUTOMATED METHOD 04/26/2024 9:42 AM [facility] WBC, Urine 700.4(H) 0 - 4 /HPF LAB URINALYSIS - AUTOMATED METHOD 04/26/2024 9:42 AM [facility] Squamous Epithelial, Urine 48 0 - 60 /LPF LAB URINALYSIS - AUTOMATED METHOD 04/26/2024 9:42 AM [facility] Bacteria, Urine Many(A) Negative /HPF LAB URINALYSIS - AUTOMATED METHOD 04/26/2024 9:42 AM [facility] Hyaline Casts, Urine 1.0 0 - 3 /LPF LAB URINALYSIS - AUTOMATED METHOD 04/26/2024 9:42 AM [facility] Urine Urine specimen obtained by clean catch procedure / Unknown 04/25/2024 1:30 PM EST 04/26/2024 8:19 AM EST us Mookie Donovan MD LAB URINE ORDERABLES Final Result [facility] [address] [place] [address], [place] [phone] * (ABNORMAL) Culture urine (04/25/2024 1:30 PM EST) Culture, Urine >100,000 CFU/mL Escherichia coli ESBL(A) [place]EN 04/30/2024 9:38 AM EST [facility] Comment: THIS ORGANISM IS [...] pneumoniae ESBL(A) [place]EN 04/30/2024 9:38 AM EST [facility] Comment: THIS ORGANISM IS [...] PM EST 04/26/2024 8:19 AM EST Narrative [facility] - 04/30/2024 9:38 AM EST [...] LAB MICROBIOLOGY - GENERAL ORDERABLES Final Result [facility] LAB [address] [place] [address], * Clostridium difficile toxin (04/05/2024 5:00 PM EST) [facility] Clostridium difficile GDH Antigen Negative Negative 04/06/2024 1:38 PM EST [facility] C difficile Toxins A+B, EIA Negative Negative 04/06/2024 1:38 PM EST [facility] Comment:NEGATIVE FOR TOXIN P RODUCING CLOSTRIDIOIDES DIFFICILE, NO ADDITIONAL TESTING IS NECESSARY. Stool Rectum structure / Unknown 04/05/2024 5:00 PM EST 04/06/2024 9:25 AM EST us Mookie Donovan MD LAB MICROBIOLOGY - GENERAL ORDERABLES Final Result Performing Organization Address [facility]/ZIP Co de Phone Number [facility] [address] [place] [address], [place] [phone] * (ABNORMAL) Magnesium (04/03/2024 9:41 AM EST) [facility] Magnesium 1.5(L) 1.9 - 2.6 mg/dL LAB CHEMISTRY METHOD 04/03/2024 12:21 PM EST [facility] Blood Venous blood specimen / Unknown Venipuncture / Unknown 04/03/2024 9:41 AM EST 04/03/2024 10:44 AM EST us Mookie Donovan MD LAB BLOOD ORDERABLES Final Result [facility] [address] [place] [address], [place] [phone] * (ABNORMAL) CBC auto differential (03/29/2024 6:51 AM EST) [facility] WBC 16.1(H) 4.8 - 10.8 K/[facility] LAB HEMETOLOGY METHOD 03/29/2024 9:23 AM EST [facility] RBC 3.20(L) 3.80 - 4.80 M/[facility] LAB HEMETOLOGY METHOD 03/29/2024 9:23 AM [facility] Hemoglobin 9.1(L) 11.5 - 16.0 g/dL LAB HEMETOLOGY METHOD 03/29/2024 9:23 AM [facility] Hematocrit 28.3(L) 35.0 - 47.0 % LAB HEMETOLOGY METHOD 03/29/2024 9:23 AM [facility] MCV 88.2 79.0 - 98.0 FL LAB HEMETOLOGY METHOD 03/29/2024 9:23 AM [facility] MCH 28.3 27.0 - 32.0 pcg LAB HEMETOLOGY METHOD 03/29/2024 9:23 AM [facility] MCHC 32.2 32.0 - 37.0 g/dL LAB HEMETOLOGY METHOD 03/29/2024 9:23 AM [facility] RDW 17.6(H) 11.0 - 15.0 % LAB HEMETOLOGY METHOD 03/29/2024 9:23 AM [facility] Platelets 482(H) 130 - 400 K/[facility] LAB HEMETOLOGY METHOD 03/29/2024 9:23 AM [facility] LAB MPV 9.2 7.0 - 11.0 FL LAB HEMETOLOGY METHOD 03/29/2024 9:23 AM [facility] NRBC 0.0 <1.0 % LAB HEMETOLOGY METHOD 03/29/2024 9:23 AM [facility] NRBC Absolute 0.00 <0.10 K/mcL LAB HEMETOLOGY METHOD 03/29/2024 9:23 AM [facility] Neutrophils Relative 82.2 % LAB HEMETOLOGY METHOD 03/29/2024 9:23 AM [facility] Lymphocytes Relative 8.3 % LAB HEMETOLOGY METHOD 03/29/2024 9:23 AM EST [facility] Monocytes Relative 7.4 % LAB HEMETOLOGY METHOD 03/29/2024 9:23 AM [facility] Eosinophils Relative 0.3 % LAB HEMETOLOGY METHOD 03/29/2024 9:23 AM [facility] Basophils Relative 0.2 % LAB HEMETOLOGY METHOD 03/29/2024 9:23 AM [facility] Immature Granulocytes Relative 1.6 % LAB HEMETOLOGY METHOD 03/29/2024 9:23 AM [facility] Neutrophils Absolute 13.23(H) 1.50 - 7.00 K/mcL LAB HEMETOLOGY METHOD 03/29/2024 9:23 AM [facility] Lymphocytes Absolute 1.33 1.00 - 5.00 K/mcL LAB HEMETOLOGY METHOD 03/29/2024 9:23 AM [facility] Monocytes Absolute 1.19(H) 0.20 - 1.00 K/mcL LAB HEMETOLOGY METHOD 03/29/2024 9:23 AM [facility] Eosinophils Absolute 0.05 0.00 - 0.50 K/mcL LAB HEMETOLOGY METHOD 03/29/2024 9:23 AM [facility] Basophils Absolute 0.03 0.00 - 0.20 K/mcL LAB HEMETOLOGY METHOD 03/29/2024 9:23 AM [facility] Immature Granulocytes Absolute 0.25(H) 0.00 - 0.03 K/mcL LAB HEMETOLOGY METHOD 03/29/2024 9:23 AM [facility] Blood Venous blood specimen / Unknown Venipuncture / Unknown 03/29/2024 6:51 AM EST 03/29/2024 8:51 AM EST Mookie Donovan MD LAB BLOOD ORDERABLES Final Result [facility] [address] [place] [address], [place] [phone] * Lavender tube (03/29/2024 6:51 AM EST) Pathologist [facility] Extra Tube Hold for add-ons. 03/29/2024 11:01 AM EST [facility] Comment:Auto resulted. Blood Venous blood specimen / Unknown 03/29/2024 6:51 AM EST 03/29/2024 9:08 AM EST us Mookie Donovan MD LAB BLOOD ORDERABLES Final Result [facility] [address] [place] [address], * Hemoglobin A1c (03/29/2024 6:51 AM EST) [facility] Hemoglobin A1C 6.1 <6.5 % LAB CHEMISTRY METHOD 03/29/2024 11:40 AM EST [facility] Mean Bld Glu Estim. 128 mg/dL LAB CHEMISTRY METHOD 03/29/2024 11:40 AM EST [facility] Blood Venous blood specimen / Unknown Venipuncture / Unknown 03/29/2024 6:51 AM EST 03/29/2024 8:51 AM EST us Mookie Donovan MD LAB BLOOD ORDERABLES Final Result [facility] [address] [place] [address], [place] [phone] * (ABNORMAL) Comprehensive metabolic panel (03/29/2024 6:51 AM EST) [facility] Sodium 141 133 - 145 mmol/L LAB CHEMISTRY METHOD 03/29/2024 9:50 AM EST [facility] Potassium 3.0(L) 3.5 - 5.5 mmol/L LAB CHEMISTRY METHOD 03/29/2024 9:50 AM [facility] Chloride 107 96 - 110 mmol/L LAB CHEMISTRY METHOD 03/29/2024 9:50 AM [facility] CO2 24 21 - 32 mmol/L LAB CHEMISTRY METHOD 03/29/2024 9:50 AM [facility] Anion Gap 10 3 - 11 LAB CHEMISTRY METHOD 03/29/2024 9:50 AM [facility] Glucose 134(H) 70 - 100 mg/dL LAB CHEMISTRY METHOD 03/29/2024 9:50 AM [facility] BUN 13 5 - 25 mg/dL LAB CHEMISTRY METHOD 03/29/2024 9:50 AM [facility] Creatinine 0.46(L) 0.50 - 1.10 mg/dL LAB CHEMISTRY METHOD 03/29/2024 9:50 AM [facility] eGFR 95 >=60 mL/min/1. 73m2 LAB CHEMISTRY METHOD 03/29/2024 9:50 AM [facility] Comment:Calculation based on the??Chronic Kidney Disease Epidemiology Collaboration (CKD-EPI) equation refit??without adjustment for race. BUN/Creatinine Ratio 28.3 LAB CHEMISTRY METHOD 03/29/2024 9:50 AM [facility] Calcium 8.4(L) 8.5 - 10.5 mg/dL LAB CHEMISTRY METHOD 03/29/2024 9:50 AM [facility] AST (SGOT) 17 10 - 42 unit/L LAB CHEMISTRY METHOD 03/29/2024 9:50 AM [facility] ALT (SGPT) 13 10 - 60 unit/L LAB CHEMISTRY METHOD 03/29/2024 9:50 AM [facility] Alkaline Phosphatase 161(H) 42 - 121 unit/L LAB CHEMISTRY METHOD 03/29/2024 9:50 AM [facility] Total Protein 5.5(L) 6.0 - 8.0 g/dL LAB CHEMISTRY METHOD 03/29/2024 9:50 AM EST [facility] Albumin 2.0(L) 3.2 - 5.0 g/dL LAB CHEMISTRY METHOD 03/29/2024 9:50 AM EST [facility] Total Bilirubin 0.4 0.0 - 1.4 mg/dL LAB CHEMISTRY METHOD 03/29/2024 9:50 AM EST [facility] Blood Venous blood specimen / Unknown Venipuncture / Unknown 03/29/2024 6:51 AM EST 03/29/2024 8:51 AM EST us Mookie Donovan MD LAB BLOOD ORDERABLES Final Result [facility] ([facility]) [facility] [address] [place] [address], from Last 3 Months Additional Health Concerns Infection Onset Date Last Indicated ESBL 04/25/2024 04/25/2024 Insurance MEDICAID - [place] MEDICARE Care Teams Status Controller Relationship Specialty Start Date End Date Melissa Shannon MD [address] [facility] [place] [address] PCP - General Internal Medicine 04/02/13
--- OUTSIDE RECORDS SUMMARY | 2024-06-21 11:27 | XMS_ITS | Encounter Summary ---
Author Organization [facility] [place] [address] Care Team Providers Care Assistant Passenger Locomotive Engineer Name Role Phone Melissa Shannon MD Primary Care Provider Encounter Details Date Type Department Care Team (Late st Contact Info) Description 04/09/2024 Lab Requisition [facility] - Main Lab [address] [facility] [employer] [place] [id number] Mookie Donovan MD [address] [place] [address] Anemia, unspecified Social History Tobacco Use Types [...] Description 07/19/2024 3:30 PM EDT Ancillary Procedure [facility] Cardiology [facility] [address] [place] [address] 07/31/2024 10:20 AM EDT Office Visit [facility] Cardiology [facility] - [address] [place] [id number] Sis Dowell MD [address] [place] [address] documented as of this encounter Procedures Procedure Name Priority Date/Time Associated Diagnosis Comments COMPLETE BLOOD COUNT Routine 04/10/2024 5:20 AM EST Anemia, unspecified BASIC METABOLIC PANEL Routine 04/10/2024 5:20 AM EST Anemia, unspecified documented in this encounter Results * (ABNORMAL) Basic metabolic panel (04/10/2024 5:20 AM EST) Sodium 139 133 - 145 mmol/L LAB CHEMISTRY METHOD 04/10/2024 8:[address] [facility] Potassium 3.8 3.5 - 5.5 mmol/L LAB CHEMISTRY METHOD 04/10/2024 8:[address] [facility] Chloride 104 96 - 110 mmol/L LAB CHEMISTRY METHOD 04/10/2024 8:[address] [facility] CO2 31 21 - 32 mmol/L LAB CHEMISTRY METHOD 04/10/2024 8:[address] [facility] Anion Gap 4 3 - 11 LAB CHEMISTRY METHOD 04/10/2024 8:[address] [facility] Glucose 123(H) 70 - 100 mg/dL LAB CHEMISTRY METHOD 04/10/2024 8:[address] [facility] BUN 11 5 - 25 mg/dL LAB CHEMISTRY METHOD 04/10/2024 8:[address] [facility] Creatinine 0.44(L) 0.50 - 1.10 mg/dL LAB CHEMISTRY METHOD 04/10/2024 8:[address] [facility] eGFR 96 >=60 mL/min/1. 73m2 LAB CHEMISTRY METHOD 04/10/2024 8:[address] [facility] Comment:Calculation based on the??Chronic Kidney Disease Epidemiology Collaboration (CKD-EPI) equation refit??without adjustment for race. BUN/Creatinine Ratio 25.0 LAB CHEMISTRY METHOD 04/10/2024 8:[address] [facility] Calcium 8.1(L) 8.5 - 10.5 mg/dL LAB CHEMISTRY METHOD 04/10/2024 8:[address] [facility] Blood Venous blood specimen / Unknown Venipuncture / Unknown 04/10/2024 5:20 AM EST 04/10/2024 7:34 AM EST Mookie Donovan MD LAB BLOOD ORDERABLES Final Result [facility] [address] [place] [address], * (ABNORMAL) Complete blood count (04/10/2024 5:20 AM EST) WBC 10.3 4.8 - 10.8 K/mcL LAB HEMETOLOGY METHOD 04/10/2024 7:[address] [facility] RBC 3.40(L) 3.80 - 4.80 M/mcL LAB HEMETOLOGY METHOD 04/10/2024 7:[address] [facility] Hemoglobin 9.2(L) 11.5 - 16.0 g/dL LAB HEMETOLOGY METHOD 04/10/2024 7:[address] [facility] Hematocrit 30.2(L) 35.0 - 47.0 % LAB HEMETOLOGY METHOD 04/10/2024 7:[address] [facility] MCV 89.9 79.0 - 98.0 FL LAB HEMETOLOGY METHOD 04/10/2024 7:[address] [facility] MCH 27.4 27.0 - 32.0 pcg LAB HEMETOLOGY METHOD 04/10/2024 7:[address] [facility] MCHC 30.5(L) 32.0 - 37.0 g/dL LAB HEMETOLOGY METHOD 04/10/2024 7:58 AM EST [facility] RDW 16.9(H) 11.0 - 15.0 % LAB HEMETOLOGY METHOD 04/10/2024 7:58 AM EST [facility] Platelets 330 130 - 400 K/mcL LAB HEMETOLOGY METHOD 04/10/2024 7:58 AM EST [facility] MPV 10.9 7.0 - 11.0 FL LAB HEMETOLOGY METHOD 04/10/2024 7:58 AM EST [facility] NRBC 0.0 <1.0 % LAB HEMETOLOGY METHOD 04/10/2024 7:58 AM EST [facility] NRBC Absolute 0.00 <0.10 K/mcL LAB HEMETOLOGY METHOD 04/10/2024 7:[address] [facility] Blood Venous blood specimen / Unknown Venipuncture / Unknown 04/10/2024 5:20 AM EST 04/10/2024 7:34 AM EST Mookie Donovan MD LAB BLOOD ORDERABLES Final Result [facility] [address] [place] [address], documented in this encounter Visit Diagnoses Diagnosis Anemia, unspecified documented in this encounter Additional Health Concerns Infection Onset Date Last Indicated Resolved Time ESBL 04/25/2024 04/25/2024 documented as of this encounter Care Teams Assistant Passenger Locomotive Engineer Relationship Specialty Start Date End Date Melissa Shannon MD [address] [place] [address] PCP - General Internal Medicine 04/02/13 documented as of this encounter
--- OUTSIDE RECORDS SUMMARY | 2024-06-21 11:27 | XMS_ITS | Encounter Summary ---
Author Organization Jessi [facility] [place] [address] Care Team Providers Care Sole Seamer Name Role Phone Melissa Shannon MD Primary Care Provider Encounter Details Date Type Department Care Team (Late st Contact Info) Description 04/06/2024 Lab Requisition [facility] - Main Lab [address] [facility] [place] [phone] Mookie Donovan MD [address] [place] [address] Unspecified dementia, unspecified severity, without behavioral disturbance, [...] Description 07/19/2024 3:30 PM EDT Ancillary Procedure [facility] [address] [place] [phone] 07/31/2024 10:20 AM EDT Office Visit [facility] [address] [address] Sis Dowell MD 300 [facility] 154 [place] [address] documented as of this encounter Procedures Procedure Name Priority Date/Time Associated Diagnosis Comments CLOSTRIDIUM DIFFICILE TOXIN Routine 04/05/2024 5:00 PM EST Unspecified dementia, unspecified severity, without behavioral disturbance, psychotic disturbance, mood disturbance, and anxiety (CMS/HCC) Unspecified infectious disease documented in this encounter Results * Clostridium difficile toxin (04/05/2024 5:00 PM EST) Clostridium difficile GDH Antigen Negative Negative 04/06/2024 1:38 PM EST [facility] C difficile Toxins A+B, EIA Negative Negative 04/06/2024 1:38 PM EST [facility] Comment:NEGATIVE FOR TOXIN P RODUCING CLOSTRIDIOIDES DIFFICILE, NO ADDITIONAL TESTING IS NECESSARY. Stool Rectum structure / Unknown 04/05/2024 5:00 PM EST 04/06/2024 9:25 AM EST Mookie Donovan MD LAB MICROBIOLOGY - GENERAL ORDERABLES Final Result [facility] [address] [place] [address], documented in this encounter Visit Diagnoses Diagnosis Unspecified dementia, unspecified severity, without behavioral disturbance, psychotic disturbance, mood disturbance, and anxiety (CMS/HCC) Unspecified infectious disease documented in this encounter Additional Health Concerns Infection Onset Date Last Indicated Resolved Time ESBL 04/25/2024 04/25/2024 documented as of this encounter Care Teams Sole Seamer Relationship Specialty Start Date End Date Melissa Shannon MD [address] [facility] [place] [address] PCP - General Internal Medicine 04/02/13 documented as of this encounter
--- OUTSIDE RECORDS SUMMARY | 2024-06-21 11:27 | XMS_ITS | Encounter Summary ---
Author Organization Jessi [facility] [place] [address] Care Team Providers Care Razor Grinder Name Role Phone Melissa Shannon MD Primary Care Provider Encounter Details Date Type Department Care Team (Late st Contact Info) Description 03/29/2024 Lab Requisition [facility] - Main Lab 299 [facility] [place] [phone] Mookie Donovan MD [address] [place] [address] Unspecified atrial fibrillation (CMS/HCC); Type 2 diabetes [...] Description 07/19/2024 3:30 PM EDT Ancillary Procedure [facility] Cardiology [facility] [address] [place] [address] 07/31/2024 10:20 AM EDT Office Visit [facility] Cardiology [facility] [address] [place] [address] Sis Dowell MD 300 [facility] 154 [place] [address] documented as of this encounter Procedures Procedure [...] Hold for add-ons. 03/29/2024 11:01 AM EST [facility] Comment:Auto resulted. Blood Venous blood specimen / Unknown 03/29/2024 6:51 AM EST 03/29/2024 9:08 AM EST us Mookie Donovan MD LAB BLOOD ORDERABLES Final Result [facility] [address] [place] [address], * (ABNORMAL) CBC auto differential (03/29/2024 6:51 AM EST) [facility] WBC 16.1(H) 4.8 - 10.8 K/mcL LAB HEMETOLOGY METHOD 03/29/2024 9:23 AM [facility] RBC 3.20(L) 3.80 - 4.80 M/mcL LAB HEMETOLOGY METHOD 03/29/2024 9:23 AM [facility] Hemoglobin 9.1(L) 11.5 - 16.0 g/dL LAB HEMETOLOGY METHOD 03/29/2024 9:23 AM [facility] Hematocrit 28.3(L) 35.0 - 47.0 % LAB HEMETOLOGY METHOD 03/29/2024 9:23 AM [facility] MCV 88.2 79.0 - 98.0 FL LAB HEMETOLOGY METHOD 03/29/2024 9:23 AM [facility] MCH 28.3 27.0 - 32.0 pcg LAB HEMETOLOGY METHOD 03/29/2024 9:23 AM [facility] MCHC 32.2 32.0 - 37.0 g/dL LAB HEMETOLOGY METHOD 03/29/2024 9:23 AM [facility] RDW 17.6(H) 11.0 - 15.0 % LAB HEMETOLOGY METHOD 03/29/2024 9:23 AM [facility] Platelets 482(H) 130 - 400 K/mcL LAB HEMETOLOGY METHOD 03/29/2024 9:23 AM [facility] MPV 9.2 7.0 - 11.0 FL LAB HEMETOLOGY METHOD 03/29/2024 9:23 AM [facility] NRBC 0.0 <1.0 % LAB HEMETOLOGY METHOD 03/29/2024 9:23 AM [facility] NRBC Absolute 0.00 <0.10 K/mcL LAB HEMETOLOGY METHOD 03/29/2024 9:23 AM [facility] Neutrophils Relative 82.2 % LAB HEMETOLOGY METHOD 03/29/2024 9:23 AM [facility] Lymphocytes Relative 8.3 % LAB HEMETOLOGY METHOD 03/29/2024 9:23 AM [facility] Monocytes Relative 7.4 % LAB HEMETOLOGY METHOD 03/29/2024 9:23 AM [facility] Eosinophils Relative 0.3 % LAB HEMETOLOGY METHOD 03/29/2024 9:23 AM [facility] Basophils Relative 0.2 % LAB HEMETOLOGY METHOD 03/29/2024 9:23 AM [facility] Immature Granulocytes Relative 1.6 % LAB HEMETOLOGY METHOD 03/29/2024 9:23 AM [facility] Neutrophils Absolute 13.23(H) 1.50 - 7.00 K/mcL LAB HEMETOLOGY METHOD 03/29/2024 9:23 AM [facility] Lymphocytes Absolute 1.33 1.00 - 5.00 K/mcL LAB HEMETOLOGY METHOD 03/29/2024 9:23 AM [facility] Monocytes Absolute 1.19(H) 0.20 - 1.00 K/mcL LAB HEMETOLOGY METHOD 03/29/2024 9:23 AM [facility] Eosinophils Absolute 0.05 0.00 - 0.50 K/mcL LAB HEMETOLOGY METHOD 03/29/2024 9:23 AM [facility] Basophils Absolute 0.03 0.00 - 0.20 K/mcL LAB HEMETOLOGY METHOD 03/29/2024 9:23 AM [facility] Immature Granulocytes Absolute 0.25(H) 0.00 - 0.03 K/mcL LAB HEMETOLOGY METHOD 03/29/2024 9:23 AM EST [facility] Blood Venous blood specimen / Unknown Venipuncture / Unknown 03/29/2024 6:51 AM EST 03/29/2024 8:51 AM EST us Mookie Donovan MD LAB BLOOD ORDERABLES Final Result Performing Organization Address City/[facility]/ZIP Co de Phone Number [facility] [address] [place] [address], [place] [phone] * Hemoglobin A1c (03/29/2024 6:51 AM EST) Pathologist [facility] Hemoglobin A1C 6.1 <6.5 % LAB CHEMISTRY METHOD 03/29/2024 11:40 AM EST [facility] Mean Bld Glu Estim. 128 mg/dL LAB CHEMISTRY METHOD 03/29/2024 11:40 AM EST [facility] Blood Venous blood specimen / Unknown Venipuncture / Unknown 03/29/2024 6:51 AM EST 03/29/2024 8:51 AM EST us Mookie Donovan MD LAB BLOOD ORDERABLES Final Result Performing Organization Address [facility]/ZIP Co de Phone Number [facility] [address] [place] [address], [place] [phone] * (ABNORMAL) Comprehensive metabolic panel (03/29/2024 6:51 AM EST) [facility] Sodium 141 133 - 145 mmol/L LAB CHEMISTRY METHOD 03/29/2024 9:50 AM EST [facility] Potassium 3.0(L) 3.5 - 5.5 mmol/L LAB CHEMISTRY METHOD 03/29/2024 9:50 AM EST [facility] Chloride 107 96 - 110 mmol/L LAB CHEMISTRY METHOD 03/29/2024 9:50 AM EST [facility] CO2 24 21 - 32 mmol/L LAB CHEMISTRY METHOD 03/29/2024 9:50 AM [facility] Anion Gap 10 3 - 11 LAB CHEMISTRY METHOD 03/29/2024 9:50 AM [facility] Glucose 134(H) 70 - 100 mg/dL LAB CHEMISTRY METHOD 03/29/2024 9:50 AM [facility] BUN 13 5 - 25 mg/dL LAB CHEMISTRY METHOD 03/29/2024 9:50 AM [facility] Creatinine 0.46(L) 0.50 - 1.10 mg/dL LAB CHEMISTRY METHOD 03/29/2024 9:50 AM [facility] eGFR 95 >=60 mL/min/1. 73m2 LAB CHEMISTRY METHOD 03/29/2024 9:50 AM [facility] Comment:Calculation based on the??Chronic Kidney Disease Epidemiology Collaboration (CKD-EPI) equation refit??without adjustment for race. BUN/Creatinine Ratio 28.3 LAB CHEMISTRY METHOD 03/29/2024 9:50 AM [facility] Calcium 8.4(L) 8.5 - 10.5 mg/dL LAB CHEMISTRY METHOD 03/29/2024 9:50 AM [facility] AST (SGOT) 17 10 - 42 unit/L LAB CHEMISTRY METHOD 03/29/2024 9:50 AM [facility] ALT (SGPT) 13 10 - 60 unit/L LAB CHEMISTRY METHOD 03/29/2024 9:50 AM [facility] Alkaline Phosphatase 161(H) 42 - 121 unit/L LAB CHEMISTRY METHOD 03/29/2024 9:50 AM [facility] Total Protein 5.5(L) 6.0 - 8.0 g/dL LAB CHEMISTRY METHOD 03/29/2024 9:50 AM [facility] Albumin 2.0(L) 3.2 - 5.0 g/dL LAB CHEMISTRY METHOD 03/29/2024 9:50 AM [facility] Total Bilirubin 0.4 0.0 - 1.4 mg/dL LAB CHEMISTRY METHOD 03/29/2024 9:50 AM EST [facility] Blood Venous blood specimen / Unknown Venipuncture / Unknown 03/29/2024 6:51 AM EST 03/29/2024 8:51 AM EST us Mookie Donovan MD LAB BLOOD ORDERABLES Final Result [facility] [address] [place] [address], documented in this encounter Visit Diagnoses Diagnosis Unspecified atrial fibrillation (CMS/HCC) Type 2 diabetes mellitus without complications (CMS/HCC) Anemia, unspecified documented in this encounter Additional Health Concerns Infection Onset Date Last Indicated Resolved Time ESBL 04/25/2024 04/25/2024 documented as of this encounter Care Teams Razor Grinder Relationship Specialty Start Date End Date Melissa Shannon MD [address] [place] [address] PCP - General Internal Medicine 04/02/13 documented as of this encounter
--- OUTSIDE RECORDS SUMMARY | 2024-06-21 11:27 | XMS_ITS | Encounter Summary ---
Author Organization Jessi [facility] [place] [address] Care Team Providers Care Shipyard Helper Name Role Phone Melissa Shannon MD Primary Care Provider Encounter Details Date Type Department Care Team (Late st Contact Info) Description 04/16/[address] [facility] - Main Lab 299 [facility] [employer] [phone] Mookie Donovan MD [address] [place] [address] Anemia, unspecified Social History Tobacco Use Types [...] Description 07/19/2024 3:30 PM EDT Ancillary Procedure [facility] Cardiology [facility] [address] [place] [address] 07/31/2024 10:20 AM EDT Office Visit [facility] Cardiology [facility] [address] [place] [phone] Sis Dowell MD [address] [place] [address] documented as of this encounter Procedures Procedure Name Priority Date/Time Associated Diagnosis Comments COMPLETE BLOOD COUNT Routine 04/17/2024 7:30 AM EST Anemia, unspecified BASIC METABOLIC PANEL Routine 04/17/2024 7:30 AM EST Anemia, unspecified documented in this encounter Results * (ABNORMAL) Basic metabolic panel (04/17/2024 7:30 AM EST) Sodium 133 133 - 145 mmol/L LAB CHEMISTRY METHOD 04/17/2024 10:43 AM [facility] Potassium 4.1 3.5 - 5.5 mmol/L LAB CHEMISTRY METHOD 04/17/2024 10:43 AM [facility] Chloride 95(L) 96 - 110 mmol/L LAB CHEMISTRY METHOD 04/17/2024 10:43 AM [facility] CO2 28 21 - 32 mmol/L LAB CHEMISTRY METHOD 04/17/2024 10:43 AM [facility] Anion Gap 10 3 - 11 LAB CHEMISTRY METHOD 04/17/2024 10:43 AM [facility] Glucose 126(H) 70 - 100 mg/dL LAB CHEMISTRY METHOD 04/17/2024 10:43 AM [facility] BUN 10 5 - 25 mg/dL LAB CHEMISTRY METHOD 04/17/2024 10:43 AM [facility] Creatinine 0.59 0.50 - 1.10 mg/dL LAB CHEMISTRY METHOD 04/17/2024 10:43 AM [facility] eGFR 90 >=60 mL/min/1. 73m2 LAB CHEMISTRY METHOD 04/17/2024 10:43 AM [facility] Comment:Calculation based on the??Chronic Kidney Disease Epidemiology Collaboration (CKD-EPI) equation refit??without adjustment for race. BUN/Creatinine Ratio 16.9 LAB CHEMISTRY METHOD 04/17/2024 10:43 AM [facility] Calcium 8.8 8.5 - 10.5 mg/dL LAB CHEMISTRY METHOD 04/17/2024 10:43 AM [facility] Blood Venous blood specimen / Unknown Venipuncture / Unknown 04/17/2024 7:30 AM EST 04/17/2024 10:07 AM EST Mookie Donovan MD LAB BLOOD ORDERABLES Final Result [facility] [address] [place] [address], * (ABNORMAL) Complete blood count (04/17/2024 7:30 AM EST) WBC 10.2 4.8 - 10.8 K/mcL LAB HEMETOLOGY METHOD 04/17/2024 10:33 AM [facility] RBC 3.70(L) 3.80 - 4.80 M/mcL LAB HEMETOLOGY METHOD 04/17/2024 10:33 AM [facility] Hemoglobin 10.0(L) 11.5 - 16.0 g/dL LAB HEMETOLOGY METHOD 04/17/2024 10:33 AM [facility] Hematocrit 32.0(L) 35.0 - 47.0 % LAB HEMETOLOGY METHOD 04/17/2024 10:33 AM [facility] MCV 87.2 79.0 - 98.0 FL LAB HEMETOLOGY METHOD 04/17/2024 10:33 AM [facility] MCH 27.2 27.0 - 32.0 pcg LAB HEMETOLOGY METHOD 04/17/2024 10:33 AM [facility] MCHC 31.3(L) 32.0 - 37.0 g/dL LAB HEMETOLOGY METHOD 04/17/2024 10:33 AM EST [facility] RDW 16.4(H) 11.0 - 15.0 % LAB HEMETOLOGY METHOD 04/17/2024 10:33 AM EST [facility] Platelets 191 130 - 400 K/mcL LAB HEMETOLOGY METHOD 04/17/2024 10:33 AM EST [facility] MPV 10.9 7.0 - 11.0 FL LAB HEMETOLOGY METHOD 04/17/2024 10:33 AM EST [facility] NRBC 0.0 <1.0 % LAB HEMETOLOGY METHOD 04/17/2024 10:33 AM EST [facility] NRBC Absolute 0.00 <0.10 K/mcL LAB HEMETOLOGY METHOD 04/17/2024 10:33 AM [facility] Blood Venous blood specimen / Unknown Venipuncture / Unknown 04/17/2024 7:30 AM EST 04/17/2024 10:07 AM EST us Mookie Donovan MD LAB BLOOD ORDERABLES Final Result [facility] [address] [place] [address], documented in this encounter Visit Diagnoses Diagnosis Anemia, unspecified documented in this encounter Additional Health Concerns Infection Onset Date Last Indicated Resolved Time ESBL 04/25/2024 04/25/2024 documented as of this encounter Care Teams Shipyard Helper Relationship Specialty Start Date End Date Melissa Shannon MD [address] [place] [address] PCP - General Internal Medicine 04/02/13 documented as of this encounter
--- OUTSIDE RECORDS SUMMARY | 2024-06-21 11:27 | XMS_ITS | Encounter Summary ---
Author Organization Jessi [facility] [place] [address] Care Team Providers Care Assembler Truck Trailer Name Role Phone Melissa Shannon MD Primary Care Provider Encounter Details Date Type Department Care Team (Late st Contact Info) Description 04/26/2024 Lab Requisition [facility] - Main Lab 299 [facility] [place] [phone] Mookie Donovan MD [address] [place] [address] Dysuria Social History Tobacco Use Types Packs/Day [...] 07/19/2024 3:30 PM EDT Ancillary Procedure [facility] Cardiology [facility] [address] [place] [address] 07/31/2024 10:20 AM EDT Office Visit [facility] Cardiology [facility] [address] [place] [phone] Sis Dowell MD [address] [place] [address] documented as of this encounter Procedures Procedure Name Priority Date/Time Associated Diagnosis Comments URINALYSIS WITH REFLEX MICROSCOPIC Routine 04/25/2024 1:30 PM EST Dysuria URINALYSIS WITH REFLEX MICROSCOPIC Routine 04/25/2024 1:30 PM EST Dysuria CULTURE URINE Routine 04/25/2024 1:30 PM EST Dysuria documented in this encounter Results * (ABNORMAL) Urinalysis with reflex microscopic (04/25/2024 1:30 PM EST) Specific [place] Urine 1.028 1.003 - 1.030 LAB URINALYSIS - AUTOMATED METHOD 04/26/2024 9:42 AM [facility] pH, Urine 5.5 5.0 - 8.0 pH LAB URINALYSIS - AUTOMATED METHOD 04/26/2024 9:42 AM [facility] Leukocytes, Urine Moderate(A) Negative LAB URINALYSIS - AUTOMATED METHOD 04/26/2024 9:42 AM [facility] Nitrite, Urine Negative Negative LAB URINALYSIS - AUTOMATED METHOD 04/26/2024 9:42 AM [facility] Protein, Urine 100(A) <=Trace mg/dL LAB URINALYSIS - AUTOMATED METHOD 04/26/2024 9:42 AM [facility] Glucose, Urine Negative Negative mg/dL LAB URINALYSIS - AUTOMATED METHOD 04/26/2024 9:42 AM [facility] Ketones, Urine Trace(A) Negative mg/dL LAB URINALYSIS - AUTOMATED METHOD 04/26/2024 9:42 AM [facility] Urobilinogen , Urine 1.0 0.2 - 1.0 mg/dL LAB URINALYSIS - AUTOMATED METHOD 04/26/2024 9:42 AM [facility] Bilirubin, Urine Negative Negative LAB URINALYSIS - AUTOMATED METHOD 04/26/2024 9:42 AM [facility] Blood, Urine Moderate(A) Negative LAB URINALYSIS - AUTOMATED METHOD 04/26/2024 9:42 AM [facility] RBC, Urine 7.4(H) 0 - 4 /HPF LAB URINALYSIS - AUTOMATED METHOD 04/26/2024 9:42 AM [facility] WBC, Urine 700.4(H) 0 - 4 /HPF LAB URINALYSIS - AUTOMATED METHOD 04/26/2024 9:42 AM [facility] Squamous Epithelial, Urine 48 0 - 60 /LPF LAB URINALYSIS - AUTOMATED METHOD 04/26/2024 9:42 AM [facility] Bacteria, Urine Many(A) Negative /HPF LAB URINALYSIS - AUTOMATED METHOD 04/26/2024 9:42 AM [facility] Hyaline Casts, Urine 1.0 0 - 3 /LPF LAB URINALYSIS - AUTOMATED METHOD 04/26/2024 9:42 AM [facility] Urine Urine specimen obtained by clean catch procedure / Unknown 04/25/2024 1:30 PM EST 04/26/2024 8:19 AM EST Mookie Donovan MD LAB URINE ORDERABLES Final Result [facility] [address] [place] [address], * (ABNORMAL) Culture urine (04/25/2024 1:30 PM EST) Culture, Urine >100,000 CFU/mL Escherichia coli ESBL(A) [place] 04/30/2024 9:38 AM [facility] Comment: THIS ORGANISM IS [...] pneumoniae ESBL(A) [place] 04/30/2024 9:38 AM EST [facility] Comment: THIS ORGANISM IS [...] 1:30 PM EST 04/26/2024 8:19 AM EST [facility] - 04/30/2024 9:38 AM EST [...] GENERAL ORDERABLES Final Result Performing Organization Address City/State/[facility] Co de Phone Number [facility] [address] [place] [address], documented in this encounter Visit Diagnoses Diagnosis Dysuria documented in this encounter Additional Health Concerns Infection Onset Date Last Indicated Resolved Time ESBL 04/25/2024 04/25/2024 documented as of this encounter Care Teams Assembler Truck Trailer Relationship Specialty Start Date End Date Melissa Shannon MD [address] [place] [address] PCP - General Internal Medicine 04/02/13 documented as of this encounter
--- OUTSIDE RECORDS SUMMARY | 2024-06-21 11:27 | XMS_ITS | Encounter Summary ---
Author Organization Jessi [facility] [place] [address] Care Team Providers Care Wire Basket Maker Name Role Phone Melissa Shannon MD Primary Care Provider Encounter Details Date Type Department Care Team (Late st Contact Info) Description 04/02/2024 Lab Requisition [facility] - Main Lab 299 [facility] [employer] [phone] Mookie Donovan MD [address] [place] [address] Anemia, unspecified Social History Tobacco Use Types [...] Description 07/19/2024 3:30 PM EDT Ancillary Procedure [facility] Cardiology [facility] [address] [place] [address] 07/31/2024 10:20 AM EDT Office Visit [facility] Cardiology [facility] [address] [place] [phone] Sis Dowell MD [address] [place] [address] documented as of this encounter Procedures Procedure Name Priority Date/Time Associated Diagnosis Comments MAGNESIUM Routine 04/03/2024 9:41 AM EST Anemia, unspecified COMPLETE BLOOD COUNT Routine 04/03/2024 8:41 AM EST Anemia, unspecified documented in this encounter Results * (ABNORMAL) Magnesium (04/03/2024 9:41 AM EST) Magnesium 1.5(L) 1.9 - 2.6 mg/dL LAB CHEMISTRY METHOD 04/03/2024 12:21 PM [facility] Blood Venous blood specimen / Unknown Venipuncture / Unknown 04/03/2024 9:41 AM EST 04/03/2024 10:44 AM EST us Mookie Donovan MD LAB BLOOD ORDERABLES Final Result [facility] [address] [place] [address], * (ABNORMAL) Complete blood count (04/03/2024 8:41 AM EST) WBC 12.7(H) 4.8 - 10.8 K/mcL LAB HEMETOLOGY METHOD 04/03/2024 11:05 AM [facility] RBC 3.30(L) 3.80 - 4.80 M/mcL LAB HEMETOLOGY METHOD 04/03/2024 11:05 AM [facility] Hemoglobin 9.8(L) 11.5 - 16.0 g/dL LAB HEMETOLOGY METHOD 04/03/2024 11:05 AM [facility] Hematocrit 29.3(L) 35.0 - 47.0 % LAB HEMETOLOGY METHOD 04/03/2024 11:05 AM [facility] MCV 88.5 79.0 - 98.0 FL LAB HEMETOLOGY METHOD 04/03/2024 11:05 AM [facility] MCH 29.6 27.0 - 32.0 pcg LAB HEMETOLOGY METHOD 04/03/2024 11:05 AM [facility] MCHC 33.4 32.0 - 37.0 g/dL LAB HEMETOLOGY METHOD 04/03/2024 11:05 AM [facility] RDW 17.3(H) 11.0 - 15.0 % LAB HEMETOLOGY METHOD 04/03/2024 11:05 AM [facility] Platelets 565(H) 130 - 400 K/mcL LAB HEMETOLOGY METHOD 04/03/2024 11:05 AM [facility] MPV 9.8 7.0 - 11.0 FL LAB HEMETOLOGY METHOD 04/03/2024 11:05 AM [facility] NRBC 0.0 <1.0 % LAB HEMETOLOGY METHOD 04/03/2024 11:05 AM [facility] NRBC Absolute 0.00 <0.10 K/mcL LAB HEMETOLOGY METHOD 04/03/2024 11:05 AM [facility] Blood Venous blood specimen / Unknown Venipuncture / Unknown 04/03/2024 8:41 AM EST 04/03/2024 10:46 AM EST us Mookie Donovan MD LAB BLOOD ORDERABLES Final Result [facility] [address] [place] [address], documented in this encounter Visit Diagnoses Diagnosis Anemia, unspecified documented in this encounter Additional Health Concerns Infection Onset Date Last Indicated Resolved Time ESBL 04/25/2024 04/25/2024 documented as of this encounter Care Teams Wire Basket Maker Relationship Specialty Start Date End Date Melissa Shannon MD [address] [place] [address] PCP - General Internal Medicine 04/02/13 documented as of this encounter
--- OUTSIDE RECORDS SUMMARY | 2024-06-21 11:27 | XMS_ITS | Encounter Summary ---
Author Organization [facility] [place] [address] Care Team Providers Care Folder Machine Name Role Phone Melissa Shannon MD Primary Care Provider Encounter Details Date Type Department Care Team (Late st Contact Info) Description 04/26/2024 Lab Requisition [facility] - Main Lab [address] [facility] [place] [phone] Mookie Donovan MD [address] [place] [address] Anemia, unspecified; Type 2 diabetes mellitus without [...] Description 07/19/2024 3:30 PM EDT Ancillary Procedure [facility] - [facility] [address] [facility] [address] [place] [address] 07/31/2024 10:20 AM EDT Office Visit [facility] - [facility] [address] [facility] [address] [place] [address] Sis Dowell MD [address] [place] [address] documented as of this encounter Procedures Procedure [...] Donovan MD LAB BLOOD ORDERABLES Final Result [facility] ([facility] [address] [place] [address], * Thyroxine free (04/26/2024 6:34 AM EST) Free T4 1.25 0.70 - 1.80 ng/dL LAB CHEMISTRY METHOD 04/26/2024 8:46 AM EST [facility] Blood Venous blood specimen / Unknown Venipuncture / Unknown 04/26/2024 6:34 AM EST 04/26/2024 7:53 AM EST us Mookie Donovan MD LAB BLOOD ORDERABLES Final Result Performing Organization Address [facility]/ZIP Co de Phone Number [facility] [address] [place] [address], [place] [phone] * (ABNORMAL) Thyroid stimulating hormone (04/26/2024 6:34 AM EST) Pathologist [facility] TSH 6.69(H) 0.40 - 4.00 mcIU/mL LAB CHEMISTRY METHOD 04/26/2024 8:48 AM EST [facility] Blood Venous blood specimen / Unknown Venipuncture / Unknown 04/26/2024 6:34 AM EST 04/26/2024 7:53 AM EST us Mookie Donovan MD LAB BLOOD ORDERABLES Final Result Performing Organization Address [facility] de Phone Number [facility] [address] [place] [address], [place] [phone] * (ABNORMAL) Basic metabolic panel (04/26/2024 6:34 AM EST) [facility] Sodium 137 133 - 145 mmol/L LAB CHEMISTRY METHOD 04/26/2024 8:38 AM EST [facility] Potassium 3.7 3.5 - 5.5 mmol/L LAB CHEMISTRY METHOD 04/26/2024 8:38 AM EST [facility] Chloride 101 96 - 110 mmol/L LAB CHEMISTRY METHOD 04/26/2024 8:38 AM EST [facility] CO2 34(H) 21 [...] Final Result [facility] [address] [place] [address], * (ABNORMAL) Complete blood count (04/26/2024 6:34 [...] METHOD 04/26/2024 8:13 AM [facility] Blood Venous blood specimen / Unknown Venipuncture / Unknown 04/26/2024 6:34 AM EST 04/26/2024 7:53 AM EST Mookie Donovan MD LAB BLOOD ORDERABLES Final Result [facility] [address] [place] [address], documented in this encounter Visit Diagnoses Diagnosis Anemia, unspecified Type 2 diabetes mellitus without complications (CMS/HCC) documented in this encounter Additional Health Concerns Infection Onset Date Last Indicated Resolved Time ESBL 04/25/2024 04/25/2024 documented as of this encounter Care Teams Folder Machine Relationship Specialty Start Date End Date Melissa Shannon MD [address] [place] [address] PCP - General Internal Medicine 04/02/13 documented as of this encounter
[2024-06-21 13:15] LABS: Appearance Urine Turbid; Color Urine Yellow; Glucose Urine UA Negative (Negative); Leukocyte Esterase Urine Large (3+) (Negative); Nitrite Urine Positive (Negative); PH >= 9.0 (5.0-9.0); Specific Gravity - Urine >= 1.030 (1.005-1.025); UMIC TRIGGER UACC YES; Urine Blood Trace (Negative); Urine Ketones Negative (Negative); Urine Protein 30 (1+) mg/dL (Neg-Trace)
[2024-06-21 13:19] LABS: Bacteria Urine 1+ (None Seen); Squamous Epithelial Cell Urine 0-2 /HPF (0-2); UACC Culture Trigger YES; WBC Urine >50 /HPF (0-5)
== END 2024-06-21 08:01 | disposition home or self-care (01) ==
LOC: HO.HMGCLNP 08:00
PROVIDERS: PCP Internal Medicine; Visit Provider Internal Medicine
DX: R30.0 Dysuria (principal); R82.90 Unspecified abnormal findings in urine
CPT/HCPCS: 81001; 87086; 87088; 87186

== ENCOUNTER 2024-07-11 11:37 | Outpatient (REF) | payer MEDICARE, MEDICAID, SELFPAY ==
--- NOTE | ~2024-07-11 | XR_ITS ---
CLINICAL HISTORY: S42.301A - Unspecified fracture of shaft of humerus, right arm, initial ... 4 view right humerus Comparison: 05/25/2024 10:09 AM EST: DX: XR HUMERUS RT Findings: There is a mid humeral fracture with overlap of fragments. No significant arthritic change. No radiopaque foreign body. IMPRESSION: 1. Impacted mid humeral fracture This document has been electronically signed by: Buddy Limon MD on 07/13/2024 07:50:39
== END 2024-07-11 11:38 | disposition home or self-care (01) ==
LOC: HO.HOSX 11:37
PROVIDERS: Visit Provider Physician Assistant
DX: S42.341D Displaced spiral fracture of shaft of humerus, right arm, subsequent encounter for fracture with routine healing (principal); M19.011 Primary osteoarthritis, right shoulder
CPT/HCPCS: 73060; 99212

== ENCOUNTER 2024-07-11 13:13 | Outpatient (AMB) | payer MEDICARE, MEDICAID, SELFPAY ==
--- NOTE | 2024-07-11 13:33 | MHC.OFFVIS ---
Intake Visit Reasons: OV 8 wk f/u Rt hum shaft fx w xrays Intake Note: Joyce is a 84 year old right hand dominant female who presents today for a follow up of her right humerus fracture, DOI 03/08/24. At her last visit on 05/25/24 she was advised to wear her thermal molded brace when she is out of the house or up moving around, can be removed for rest at home however should be on while sleeping. X-rays updated. Patient reports having improvement in her pain since her last visit. Allergies meperidine [Demerol] Allergy (Unknown, Verified 07/11/24 13:35) Nausea and Vomiting oxycodone Allergy (Unknown, Verified 07/11/24 13:35) Nausea and Vomiting Sulfa (Sulfonamide Antibiotics) [SULFA (SULFONAMIDE ANTIBIOTICS)] Allergy (Unknown, Verified 07/11/24 13:35) NAUSEA & VOMITING, GI upset morphine Allergy (Verified 07/11/24 13:35) Hallucinations Penicillins [PENICILLINS] Allergy (Verified 07/11/24 13:35) rash shellfish derived Allergy (Verified 07/11/24 13:35) Anaphylaxis warfarin [WARFARIN] Adverse Reaction (Severe, Verified 07/11/24 13:35) UNKNOWN aspirin [ASPIRIN] Adverse Reaction (Mild, Verified 07/11/24 13:35) gi bleed enoxaparin [From LOVENOX] Adverse Reaction (Unknown, Verified 07/11/24 13:35) INTERNAL BLEEDING heparin [HEPARIN] Adverse Reaction (Unknown, Verified 07/11/24 13:35) INTERNAL BLEEDING ibuprofen Adverse Reaction (Unknown, Verified 07/11/24 13:35) GI bleed MAGNOLIA Inhibitors Adverse Reaction (Verified 07/11/24 13:35) Angioedema Chocolate Adverse Reaction (Verified 07/11/24 13:35) Diarrhea HPI HPI OV 8 wk f/u Rt hum shaft fx w xrays: Details: 84-year-old female returns for a follow-up right humeral shaft fracture. She continues to do well. She has at home and has [facility]NA services coming to the house for physical therapy. She denies pain in the right upper extremity. She has not been ambulatory as she needs to use a walker due to her lower extremity weakness. [facility] Medical History (Updated 06/09/24 @ 04:03 by Melissa Shannon MD) Iron deficiency anemia History of COVID-19 History of toe fracture Hx of fracture of humerus Diastolic heart failure Lumbar back pain with radiculopathy affecting left lower extremity Mixed stress and urge urinary incontinence Osteoporosis History of compression fracture of spine Compression fracture of body of thoracic vertebra Paroxysmal atrial fibrillation Anemia Diverticulitis COPD (chronic obstructive pulmonary disease) Allergic rhinitis Multiple lipomas 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) GERD (gastroesophageal reflux disease) Deep vein thrombosis (DVT) of left lower extremity Gout Anxiety disorder Type 2 diabetes mellitus without complication, without long-term current use of insulin Hyperlipidemia Hypertension Surgical History H/O: hysterectomy History of gastric surgery Hx of hand surgery H/O local excision of skin lesion Family History Mother Mental health disorder Sister CVA (cerebral vascular accident) Daughter Brain tumor Diabetes Bipolar 1 disorder Heart abnormality Mental illness in member of household Mental health disorder Father Substance use disorder Son Mental health disorder Social History Household Members: Family Housing: House Do you presently have visiting nurse or other home services: No Alcohol intake: former Patient Tobacco Use Status: Former Tobacco user Years Smoked: 10 yrs e-Cigarette/Vaping Use: Never Used Second Hand Smoke Exposure: No Advance Directives Date on File: 07/27/21 service: No Current occupational status: retired Cognitive needs: No Hearing needs: No Vision needs: Yes Review of Systems Const All systems reviewed & are unremarkable except as noted in HPI and below Physical Exam Const General: cooperative and no acute distress Orientation/consciousness: patient oriented x3 Resp Effort & Inspection: normal respiratory effort and able to speak in complete sentences Cardio Peripheral pulses: Peripheral pulses 2+ throughout Neuro General: patient oriented x3 Extrem Other: Right shoulder normal to inspection. No significant discomfort over fracture site. No ecchymosis or swelling throughout the arm into the forearm. She does have good sensation throughout the forearm into the wrist and hand. Radial ulnar and medial nerve sensory and motor function intact. Results Reviewed Results Reviewed: X-rays of the right shoulder and humerus obtained in the office today and reviewed by me show severe glenohumeral joint arthritis. Right humerus shows a displaced spiral fracture through the humeral shaft. No evidence of olecranon fracture. Assessment & Plan Assessment & Plan (1) Hx of fracture of humerus: Code(s): Z87.81 - Personal history of (healed) traumatic fracture Category: Medical Plan: Fracture continues to remain stable. In the absence of pain I think she is healing well. She can remove the brace when resting and around the house. Use the brace when she is out of the house. She can begin ambulating with a walker with assistance given her generalized weakness. She can do so as long as she is pain-free in the right upper extremity. I would like to see her back in 8 weeks with x-rays sooner if needed. Orders: Orders XR humerus RT Today S42.301A - Unspecified fracture of shaft of humerus, right arm, initial encounter for closed fracture Coding Level of Care Code Est Pt Level 3 (60957) Complex EM visit Add On G2211 Diagnoses Hx of fracture of humerus Z87.81
== END 2024-07-11 13:57 | disposition home or self-care (01) ==
LOC: HO.HOS 13:14
PROVIDERS: PCP Internal Medicine; Visit Provider Physician Assistant
DX: S42.301D Unspecified fracture of shaft of humerus, right arm, subsequent encounter for fracture with routine healing (principal); Z87.81 Personal history of (healed) traumatic fracture
CPT/HCPCS: 99213; G2211

== ENCOUNTER → 2024-07-11 13:17 | Outpatient (BNV) | payer MEDICARE, MEDICAID, SELFPAY | PROVIDERS: Visit Provider Specialist | DX: S42.301A Unspecified fracture of shaft of humerus, right arm, initial encounter for closed fracture (principal) | CPT/HCPCS: 73060 ==

== ENCOUNTER 2024-07-24 10:22 | Emergency (ER) | payer MEDICARE, MEDICAID, SELFPAY ==
--- NOTE | ~2024-07-24 | XR_ITS ---
EXAMINATION: XR CHEST CLINICAL INFORMATION: cough, fall COMPARISON: May 05, 2024. TECHNIQUE: Frontal view of the chest was obtained. FINDINGS: There is a prominent/enlarged ascending thoracic aorta/superior aspect of the cardiomediastinal silhouette. No consolidation, pleural effusion or pneumothorax. Low lung volume. Multilevel thoracic spondylosis. Degenerative changes in the glenohumeral joints more conspicuous on the left side. XR/XR chest 1V IMPRESSION: Prominent/enlarged thoracic aortic arch concerning for aneurysm. Recommend CT angiogram aorta. Electronically signed by: Leno Tom MD 07/24/2024 12:16 PM EDT
--- NOTE | ~2024-07-24 | CT_ITS ---
EXAMINATION: CT CERVICAL SPINE WITHOUT CONTRAST CLINICAL INFORMATION: Status post fall. COMPARISON: March 08, 2024. TECHNIQUE: Contiguous axial images through the cervical spine using 3 mm collimation with bone and soft tissue algorithm. Sagittal and coronal reformatted images acquired. This CT examination was performed using dose optimization techniques as appropriate, variously including the following: *Automated exposure control *Adjustment of mA and/or kV according to patient size (this includes techniques or standardized protocols for targeted exams where dose is matched to indication/reason for exam; i.e. extremities or head) *Use of iterative reconstruction technique DLP: 266 mg centimeter. FINDINGS: Patient's motion artifact. Craniocervical junction is intact. Degenerative changes in the periodontal C1 region. No gross malalignment between the vertebral bodies or the facet joints. C1 is intact. C2 is intact. C3 is intact. Right facet joint hypertrophy. C4 is intact. Facet joint hypertrophy, bilaterally. C5 is intact. Facet joint hypertrophy, bilaterally. C6 is intact. Facet joint hypertrophy, bilaterally. C7 is intact. Facet joint hypertrophy, bilaterally. No prevertebral compartment hematoma. CT/CT cervical spine wo IV con IMPRESSION: Multilevel cervical spondylosis without acute fracture or trauma-related listhesis. Fleischner guidelines were followed. Electronically signed by: Leno Tom MD 07/24/2024 12:00 PM EDT
--- NOTE | ~2024-07-24 | CT_ITS ---
EXAMINATION: CT ANGIOGRAM CHEST CLINICAL INFORMATION: Prominent aortic arch on plain radiograph. COMPARISON: CT chest dated October 29, 2022. TECHNIQUE: Multiple axial images were obtained through the chest after the administration of 70 mL of Omnipaque 350 intravenous contrast. Extensive vascular post-processing including two-dimensional and three-dimensional reformatted images were created and reviewed on an independent workstation. This CT examination was performed using dose optimization techniques as appropriate, variously including the following: *Automated exposure control *Adjustment of mA and/or kV according to patient size (this includes techniques or standardized protocols for targeted exams where dose is matched to indication/reason for exam; i.e. extremities or head) *Use of iterative reconstruction technique DLP: 439 mGy centimeter. FINDINGS: Thoracic aorta diameter is 4 cm without intimal flap or IV contrast extravasation. The aortic arch diameter is 2.6 cm. The descending thoracic aorta diameter is 2.4 cm. No IV contrast extravasation. No intimal flap. No pericardial effusion. No lymphadenopathy, mediastinum or perihilar. No acute airspace disease. No pneumothorax. No pleural effusion. No bronchiectasis. No honeycombing. Calcified plaques in the coronary arteries. Calcified plaques in the aortic valve and mitral valve. Bilateral multifocal different sizes exophytic cyst throughout the kidneys. Sclerotic compression deformity with acute cortical disruption resulting in 90% volume loss without retropulsion at T7. Vertebroplasty at T11 resulting in 4 mm retropulsion upon central canal. Superior endplate compression deformity representing 20-30% volume loss at T5 vertebra. Osteopenia versus osteoporosis. Kyphotic deformity apex at T9-10. Degenerative changes in the glenohumeral joints, bilaterally as well as the acromioclavicular joints. Numerous diverticula throughout the splenic colonic flexure and descending colon. . CT/CT angio chest aorta IMPRESSION: 4 cm ectasia, ascending thoracic aorta. Acute to subacute compression deformity representing 90% volume loss at T7. Acute to subacute superior endplate compression deformity representing 20-30% volume loss at T5. Likely old compression deformity at T11. Fleischner guidelines were followed. Electronically signed by: Leno Tom MD 07/24/2024 03:10 PM EDT
--- NOTE | ~2024-07-24 | CT_ITS ---
EXAMINATION: CT HEAD WITHOUT CONTRAST CLINICAL INFORMATION: fall, +head strike, on AC COMPARISON: March 08, 2024. TECHNIQUE: Contiguous axial imaging was performed from the skull base to vertex without intravenous administration of contrast. This CT examination was performed using dose optimization techniques as appropriate, variously including the following: *Automated exposure control *Adjustment of mA and/or kV according to patient size (this includes techniques or standardized protocols for targeted exams where dose is matched to indication/reason for exam; i.e. extremities or head) *Use of iterative reconstruction technique DLP: 529.63 mGy-cm FINDINGS: Right parietal soft tissue contusion with tiny subcutaneous emphysema related to likely skin breakdown. The bony calvarium is intact. There is a bone marrow inhomogeneity. The skull base is intact. No acute intracranial hemorrhage, mass effect, midline shift, hydrocephalus or herniation. Park-white matter differentiation is normal. Prominence of the extra-axial CSF spaces cerebral sulci and ventricles. Bilateral multifocal patchy deep periventricular white matter hypodensities. Calcified plaques in the cavernous supraclinoid segments both ICAs and V4 segments of the vertebral arteries. No air-fluid levels in the paranasal sinuses. Tympanic cavities and mastoid cells are aerated. No hematoma is in the intraconal or extraconal compartments of the orbits. Edentulous, maxilla. CT/CT head/brain wo IV con IMPRESSION: Soft tissue contusion with questionable skin laceration right parietal. No acute fracture, bony calvarium. No acute intracranial hemorrhage. Electronically signed by: Leno Tom MD 07/24/2024 11:51 AM EDT
[2024-07-24 10:40] VITALS: BP 140/90; BP 170/83; PULSE 87; RESP 18; TEMP 36.3; O2SAT 97; O2SAT 98; BMI 33.5
[2024-07-24] MEDS: Lidocaine/Racepinep/Tetracaine 3 ML GEL.PF.APP TOPICAL (11:51)
--- NOTE | 2024-07-24 11:52 | PC.NURSE ---
wound cleansed and a very smal lac noted. Provider made aware.
[2024-07-24] MEDS: Albuterol Sulfate (0.083%) 2.5 MG/3 ML VIAL.NEB INHALE (12:11)
[2024-07-24 12:13] VITALS: PULSE 79; RESP 18; O2SAT 96
--- NOTE | 2024-07-24 12:25 | ED_ITS ---
HPI - Fall General Chief Complaint: Fall Stated Complaint: FALL,HIT HEAD W/LAC,CONTROLLED,REF CCOLLAR,-LOC Time Seen by Provider: 07/24/24 11:33 Source: patient, family, EMS and old records reviewed Mode of arrival: EMS Limitations: no limitations History of Present Illness ED Provider: LATA LUONG Narrative: 84 yo female with PMH of anemia, dCHF, DM, afib on eliquis, COPD, GERD, HLD, HTN, DM2 here with c/o mechanical trip and fall today trying to corn picker a box. She landed on the back of her head no LOC and no headache/vomiting/confusion. She has no other areas of injury. She did wheeze today but no fevers, sputum production and she denies new swelling. She states she has been doing great since her recent fall/admit/STR stay and has been up and walking with a walker. complaint: fall Onset (ago): minute(s) ([employer]) Fall from: standing Fall witnessed: no Place fall occurred: home Loss of consciousness: none Prolonged down time: no Symptoms prior to fall: none Context: tripped/slipped Location of injury: head Severity: mild Quality: dull Associated symptoms (after fall): other (has had intermittent wheezing recently ) Related Data Home Medications ?Medication ?Instructions ?Recorded ?Confirmed acetaminophen 500 mg tablet 1,000 mg PO Q6H PRN Pain 03/17/24 05/26/24 fluticasone propionate 50 2 spray intranasal DAILY 03/17/24 05/26/24 mcg/actuation nasal spray,suspension amiodarone 200 mg tablet 200 mg PO DAILY 05/11/24 05/26/24 Previous Rx's ?Medication ?Instructions ?Recorded blood-glucose meter (FreeStyle #1 ea 04/09/20 Lite Meter kit) Ventolin HFA 90 mcg/actuation 2 puff inhalation Q4-6H PRN for 10/08/22 aerosol inhaler (albuterol sulfate) wheezing #18 grams Serevent Diskus 50 mcg/dose powder 1 inh inhalation BID ASTHMA/COPD 05/30/23 for inhalation (salmeterol) 30 days #120 ea nebulizers #1 ea 06/16/23 albuterol sulfate 2.5 mg/3 mL 2.5 mg (3 mL) inhalation Q6H PRN 06/23/23 (0.083 %) solution for nebulization shortness of breath or wheezing 30 days #180 mL fluticasone furoate 100 1 inh inhalation DAILY ASTHMA/COPD 10/18/23 mcg/actuation blister powder for 30 days #30 ea inhalation (Arnuity Ellipta) epinephrine 0.3 mg/0.3 mL 0.3 mg (0.3 mL) IM ONCE PRN 12/28/23 injection, auto-injector (EpiPen) anaphylaxis #1 ea ipratropium 0.5 mg-albuterol 3 mg 3 ml inhalation Q6H PRN 01/05/24 (2.5 mg base)/3 mL nebulization wheezing/SOB 30 days #180 mL soln Adult facial/body wipes #4 ea 03/15/24 Re-usable/washable adult pads #4 ea 03/15/24 adult pull-ups (medium) #120 ea 03/15/24 bedside commode (commode) #1 ea 04/23/24 wheelchair with foot rest #1 ea 04/30/24 Head & foot electric bed with half #1 ea 05/04/24 side rails polyethylene glycol 3350 17 17 g PO BID PRN constipation #238 05/05/24 gram/dose oral powder (Miralax) grams sennosides 8.6 mg tablet (senna) 8.6 mg PO BEDTIME #14 tabs 05/05/24 allopurinol 100 mg tablet 100 mg PO DAILY #90 tabs 05/13/24 apixaban 5 mg tablet (Eliquis) 5 mg PO BID #60 tabs 05/13/24 docusate sodium 100 mg capsule 100 mg PO BID PRN constipation #60 05/13/24 (Colace) caps duloxetine 30 mg capsule,delayed 30 mg PO BID 3 months #180 caps 05/13/24 release furosemide 20 mg tablet 20 mg PO DAILY #90 tabs 05/13/24 gabapentin 100 mg capsule 100 mg PO BID 1 month #60 caps 05/13/24 (Neurontin) loratadine 10 mg tablet 10 mg PO DAILY PRN allergic 05/13/24 symptoms #90 tabs losartan 50 mg tablet 50 mg PO DAILY #90 tabs 05/13/24 metoprolol succinate 50 mg 75 mg PO DAILY 3 months #135 tabs 05/13/24 tablet,extended release 24 hr montelukast 10 mg tablet 10 mg PO BEDTIME for allergic 05/13/24 rhinitis #90 tabs pantoprazole 40 mg tablet,delayed 40 mg PO DAILY@0630 #90 tabs 05/13/24 release rosuvastatin 20 mg tablet 20 mg PO BEDTIME #90 tabs 05/13/24 sitagliptin phosphate 50 1 tab PO BID 90 days #180 tabs 05/13/24 mg-metformin 500 mg tablet Transport wheelchair with #1 ea 06/19/24 bilateral foot rest. nitrofurantoin 100 mg PO Q12H 10 days #20 caps 06/24/24 monohydrate/macrocrystals 100 mg capsule alprazolam 0.25 mg tablet 0.25 mg PO DAILY PRN only for 07/04/24 ACUTE anxiety attacks #30 tabs magnesium oxide 400 mg PO BID #60 tabs 07/12/24 potassium chloride 20 mEq 20 meq PO DAILY #30 tabs 07/20/24 tablet,extended release Allergies Allergy/AdvReac Type Severity Reaction Status Date / Time meperidine [Demerol] Allergy Unknown Nausea and Verified 07/24/24 10:45 Vomiting oxycodone Allergy Unknown Nausea and Verified 07/24/24 10:45 Vomiting Sulfa (Sulfonamide Allergy Unknown NAUSEA & Verified 07/24/24 10:45 Antibiotics) VOMITING, [SULFA (SULFONAMIDE GI upset ANTIBIOTICS)] morphine Allergy Hallucinati Verified 07/24/24 10:45 ons Penicillins [PENICILLINS] Allergy rash Verified 07/24/24 10:45 shellfish derived Allergy Anaphylaxis Verified 07/24/24 10:45 warfarin [WARFARIN] AdvReac Severe UNKNOWN Verified 07/24/24 10:45 aspirin [ASPIRIN] AdvReac Mild gi bleed Verified 07/24/24 10:45 enoxaparin [From LOVENOX] AdvReac Unknown INTERNAL Verified 07/24/24 10:45 BLEEDING heparin [HEPARIN] AdvReac Unknown INTERNAL Verified 07/24/24 10:45 BLEEDING ibuprofen AdvReac Unknown GI bleed Verified 07/24/24 10:45 MAGNOLIA Inhibitors AdvReac Angioedema Verified 07/24/24 10:45 Chocolate AdvReac Diarrhea Verified 07/24/24 10:45 Review of Systems 2 Review of Systems: Constitutional : No Fever, No Chills, No Fatigue ENT/Mouth : No sore throat, No Rhinorrhea Eyes: No Eye Pain, No Swelling, No Redness Cardiovascular : No Chest Pain, No SOB, No Dyspnea on Exertion Respiratory : No Cough, No Sputum Gastrointestinal : No Nausea, No Vomiting, No Diarrhea, No abdominal Pain Genitourinary : No Dysuria, No Urinary Frequency, No Hematuria, Musculoskeletal : No joint pain, No Myalgias, No Joint Swelling Skin : No Skin Lesions, No rash, pos skin laceration Neuro : No Weakness, No Numbness, No Dizziness, positive Headache Psych : No Anxiety/Panic, No Depression Heme/Lymph: No Bruising, No Bleeding,No Lymphadenopathy Endocrine : No Polyuria, No Polydipsia All other systems reviewed and are negative PMFSH Past Medical History Attestation statement: The following information was validated with the patient. 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) GERD (gastroesophageal reflux disease) Deep vein thrombosis (DVT) of left lower extremity Gout Anxiety disorder Type 2 diabetes mellitus without complication, without long-term current use of insulin Hyperlipidemia Hypertension Surgical History H/O: hysterectomy History of gastric surgery Hx of hand surgery H/O local excision of skin lesion Family History Family History Mother Mental health disorder Sister CVA (cerebral vascular accident) Daughter Brain tumor Diabetes Bipolar 1 disorder Heart abnormality Mental illness in member of household Mental health disorder Father Substance use disorder Son Mental health disorder Social History Social History Household Members: Family Housing: House Do you presently have visiting nurse or other home services: No Alcohol intake: former Patient Tobacco Use Status: Former Tobacco user Years Smoked: 10 yrs e-Cigarette/Vaping Use: Never Used Second Hand Smoke Exposure: No Advance Directives: Yes Advance Directives on File: Yes Advance Directives Date on File: 07/27/21 service: No Current occupational status: retired Cognitive needs: No Hearing needs: No Vision needs: Yes Physical Exam 2 Vital Signs: Vital Signs: Last Vital Signs Temp 98 F 07/24/24 14:22 Pulse 86 07/24/24 14:22 Resp 16 07/24/24 14:22 BP 168/88 H 07/24/24 14:22 Pulse Ox 95 07/24/24 14:22 O2 Del Method Room Air 07/24/24 14:22 BMI result Body Mass Index 33.5 Appearance: Alert. Oriented X3. No acute distress. Eyes: Pupils equal, round and reactive to light. ENT: Pharynx normal. posterior scalp contusion isolated puncture wound small bleeding controlled Neck: Normal inspection. Neck supple. CVS: Normal heart rate and rhythm. Pulses normal. Respiratory: No respiratory distress. slight exp wheeze upper lobes Abdomen: Soft and nontender. Skin: Skin warm and dry. Normal skin color. Normal skin turgor. Extremities: No lower extremity edema. No calf ttp Neuro: Oriented X 3. No motor deficit. No sensory deficit. CN2-12 intact Medications Administered Discontinued Medications Generic Name Dose Route Start Last Admin Trade Name Freq PRN Reason Stop Dose Admin Albuterol Sulfate 2.5 mg 07/24/24 12:07 07/24/24 12:11 Albuterol Sulfate (0.083%) 2.5 Mg/3 Ml Vial.Neb INHALE 07/24/24 12:08 2.5 mg ONCE ONE Administration Iohexol 100 ml 07/24/24 14:39 07/24/24 14:39 Iohexol 350 Mg/Ml 100 Ml Infus..Btl IV 07/24/24 14:40 70 ml ONCE ONE Administration Lidocaine/Epinephrine/Tetracaine 3 ml 07/24/24 11:34 07/24/24 11:51 Lidocaine/Racepinep/Tetracaine 3 Ml Gel.Pf.Marybel TOPICAL 07/24/24 11:35 3 ml ONCE ONE Administration Procedures Laceration Laceration 1: Site: scalp Size (cm): 0.5 Description: stellate Depth: simple, single layer Local Anesthetic: other anesthetic Pre-repair: wound explored, irrigated extensively and deep structures intact Skin layer closed with: other (1 staple) Medical Decision Making Medical Decision Making [facility] Narrative: 84 yo female with PMH of anemia, dCHF, DM, afib on eliquis, COPD, GERD, HLD, HTN, DM2 here with c/o trip and fall hitting back of head no LOC no vomiting GCS 15 given her age and thinner use needs CT head/cspine. She also c/o wheezing recently mild wheeze noted, no fevers, no sputum, no edema - will give neb and obtain CXR. Likely need 1 staple to close. Differential Diagnosis Differential Diagnoses: The differential diagnosis associated with the presentation includes head contusion, puncture wound, no other trauma reported, ICH Admission/Observation Consideration of admission/observation: Escalation of care including admission/observation considered GCS 15 stable for DC at baseline Lab Data [facility] Lab Attestation statement: I reviewed the patient's lab results. 07/24/24 12:34 07/24/24 12:34 Labs: Lab Results 07/24/24 Range/Units 12:34 WBC 11.2 H (4.8-10.8) X10*3/uL RBC 4.40 (4.20-5.50) X10*6/uL Hgb 11.9 L (12.0-16.0) g/dl Hct 36.0 L (37.0-47.0) % MCV 81.8 (80.0-98.0) fL MCH 27.0 (27.0-33.0) pg MCHC 33.1 (31.0-35.0) g/dl RDW 22.3 H (11.0-16.0) % Plt Count 268 (160-400) X10*3/uL MPV 10.4 (9.4-12.3) fL Immature Gran % (Auto) 0.4 (0.0-0.4) % Neut % (Auto) 59.1 (45-73) % Lymph % (Auto) 32.9 (20-40) % Bradford % (Auto) 6.0 (2-11) % Eos % (Auto) 1.1 (0-4) % Baso % (Auto) 0.5 (0-2) % Lymph # (Auto) 3.7 (1.2-4.9) X10*3/uL Bradford # (Auto) 0.7 (0.1-1.2) X10*3/uL Eos # (Auto) 0.1 (0.0-0.4) X10*3/uL Baso # (Auto) 0.1 (0.0-0.2) X10*3/uL Abs Immat Gran (auto) 0.04 H (0.00-0.03) X10*3/uL Absolute Neuts (auto) 6.6 (2.0-8.3) x10*3/uL Absolute Nucleated RBC 0.000 (0.0-0.012) X10*3/uL Nucleated RBC % (auto) 0.0 (0.0-0.2) /100WBC Sodium 143 (135-145) mmol/L Potassium 3.3 (3.3-5.1) mmol/L Chloride 103 (96-108) mmol/L Carbon Dioxide 30 H (22-29) mmol/L Anion Gap 13 (12-20) BUN 15 (9-16) mg/dL Creatinine 0.74 (0.5-1.4) mg/dL Estim Creat Clear Calc 42.2 Estimated GFR > 60 Random Glucose 98 (60-115) mg/dL Calcium 9.4 D (8.4-10.2) mg/dL Independent Interpretation I performed an independent interpretation of an: Plain X-Ray (given enlarged aorta - CT scan ordered for chest) and CT Scan (no new trauma likely old compression fracture) Radiology Impression Discussion of test interpretation with radiology: I have reviewed the radiologist's reading. Independent Historian Clinical information obtained from an independent historian. History obtained from or confirmed by: Friend and EMS External Record Review External record reviewed: Inpatient record and Outpatient record Discharge Plan Discharge Clinical Impression: Head injury Qualifiers: Encounter type: initial encounter Qualified Code(s): S09.90XA - Unspecified injury of head, initial encounter Laceration of scalp Qualifiers: Encounter type: initial encounter Qualified Code(s): S01.01XA - Laceration without foreign body of scalp, initial encounter Patient Disposition: Home, Self-Care Instructions: Laceration (ED), Head Injury (ED), Staple Care (ED) Additional Instructions: 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 staple should be kept clean - monitor for increased swelling fevers 4 cm ectasia, ascending thoracic aorta. Acute to subacute compression deformity representing 90% volume loss at T7. Acute to subacute superior endplate compression deformity representing 20-30% volume loss at T5. Likely old compression deformity at T11 Prescriptions: No Action (DME) blood-glucose meter [FreeStyle Lite Meter] Kit See Rx Instructions .ROUTE .MEDSUPPLY Qty: 1 0RF Rx Instructions: Check blood sugar once a day as directed albuterol sulfate [Ventolin HFA] 90 mcg/actuation HFA aerosol inhaler 2 puff inhalation Q4-6H PRN (Reason: for wheezing) Qty: 18 0RF Serevent Diskus 50 mcg/dose blister with device 1 inh inhalation BID 30 Days Qty: 120 5RF (DME) nebulizers Misc See Rx Instructions .Route Qty: 1 0RF Rx Instructions: As directed albuterol sulfate 2.5 mg /3 mL (0.083 %) solution for nebulization 2.5 mg inhalation Q6H PRN (Reason: shortness of breath or wheezing) 30 Days Qty: 180 5RF Arnuity Ellipta 100 mcg/actuation blister with device 1 inh inhalation DAILY 30 Days Qty: 30 5RF epinephrine [EpiPen] 0.3 mg/0.3 mL auto-injector 0.3 mg IM ONCE PRN (Reason: anaphylaxis) Qty: 1 0RF Rx Instructions: do not exceed 12 doses per 24 hrs (DME) Re-usable/washable adult pads See Rx Instructions .Route .MEDSUPPLY Qty: 4 6RF Rx Instructions: As directed (DME) Adult facial/body wipes See Rx Instructions .Route .MEDSUPPLY Qty: 4 11RF Rx Instructions: As directed (DME) adult pull-ups (medium) See Rx Instructions .Route .MEDSUPPLY Qty: 120 11RF Rx Instructions: As directed (DME) bedside commode Kit See Rx Instructions .Route Qty: 1 0RF Rx Instructions: Use As directed (DME) wheelchair with foot rest See Rx Instructions .Route .MEDSUPPLY Qty: 1 0RF Rx Instructions: As directed (DME) Head & foot electric bed with half side rails See Rx Instructions .Route .MEDSUPPLY Qty: 1 0RF Rx Instructions: head and foot electric bed with 2 half side rails amiodarone 200 mg tablet 200 mg PO DAILY furosemide 20 mg tablet 20 mg PO DAILY Qty: 90 0RF allopurinol 100 mg tablet 100 mg PO DAILY Qty: 90 1RF pantoprazole 40 mg tablet,delayed release (DR/EC) 40 mg PO DAILY@0630 Qty: 90 0RF montelukast 10 mg tablet 10 mg PO BEDTIME Qty: 90 3RF duloxetine 30 mg capsule,delayed release(DR/EC) 30 mg PO BID 90 Days Qty: 180 0RF rosuvastatin 20 mg tablet 20 mg PO BEDTIME Qty: 90 1RF losartan 50 mg tablet 50 mg PO DAILY Qty: 90 1RF sitagliptin phos-metformin 50-500 mg tablet 1 tab PO BID 90 Days Qty: 180 1RF metoprolol succinate 50 mg tablet extended release 24 hr 75 mg PO DAILY 90 Days Qty: 135 0RF Protocol: Hold for SBP/HR < HOLD for SBP < : 90 HOLD for HR < : 60 gabapentin [Neurontin] 100 mg capsule 100 mg PO BID 30 Days Qty: 60 5RF docusate sodium [Colace] 100 mg capsule 100 mg PO BID PRN (Reason: constipation) Qty: 60 3RF Eliquis 5 mg tablet 5 mg PO BID Qty: 60 0RF loratadine 10 mg tablet 10 mg PO DAILY PRN (Reason: allergic symptoms) Qty: 90 0RF (DME) Transport wheelchair with bilateral foot rest. See Rx Instructions .Route .MEDSUPPLY Qty: 1 0RF Rx Instructions: Use As directed nitrofurantoin monohyd/m-cryst 100 mg capsule 100 mg PO Q12H 10 Days Qty: 20 0RF Rx Instructions: must administer with a meal/food alprazolam 0.25 mg tablet 0.25 mg PO DAILY PRN (Reason: only for ACUTE anxiety attacks) Qty: 30 0RF magnesium oxide 400 mg magnesium tablet 400 mg PO BID Qty: 60 1RF potassium chloride 20 mEq tablet extended release 20 meq PO DAILY Qty: 30 2RF Rx Instructions: Give 1 tablet by mouth daily every Tuesday, Tuesday & Tuesday for Supplement. acetaminophen 500 mg Tablet 1,000 mg PO Q6H PRN (Reason: Pain) fluticasone propionate 50 mcg/actuation spray,suspension 2 spray intranasal DAILY Rx Instructions: administer into each nostril sennosides [senna] 8.6 mg tablet 8.6 mg PO BEDTIME Qty: 14 0RF polyethylene glycol 3350 [Miralax] 17 gram/dose powder 17 g PO BID PRN (Reason: constipation) Qty: 238 0RF ipratropium-albuterol 0.5 mg-3 mg(2.5 mg base)/3 mL solution for nebulization 3 ml inhalation Q6H PRN (Reason: wheezing/SOB) 30 Days Qty: 180 3RF Print Language: Amharic
[2024-07-24 12:26] VITALS: BP 176/81; PULSE 82; RESP 16; TEMP 36.8; O2SAT 98
[2024-07-24 12:39] LABS: MANUAL DIFF FLAG NO
[2024-07-24 12:40] LABS: Basophils Absolute Auto 0.1 X10*3/uL (0.0-0.2); Basophils Percent Auto 0.5 % (0-2); Eosinophils Absolute Auto 0.1 X10*3/uL (0.0-0.4); Eosinophils Percent Auto 1.1 % (0-4); Hemoglobin 11.9 g/dl (12.0-16.0); Imm Gran Abs Auto 0.04 X10*3/uL (0.00-0.03); Imm Gran Pct Auto 0.4 % (0.0-0.4); Lymphocytes Absolute Auto 3.7 X10*3/uL (1.2-4.9); Lymphocytes Percent Auto 32.9 % (20-40); Mean Corpuscular HGB Conc 33.1 g/dl (31.0-35.0); Mean Corpuscular Volume 81.8 fL (80.0-98.0); Mean Platelet Volume 10.4 fL (9.4-12.3); Monocytes Absolute Auto 0.7 X10*3/uL (0.1-1.2); Neutrophils Absolute Auto 6.6 x10*3/uL (2.0-8.3); Neutrophils Percent Auto 59.1 % (45-73); Platelet Count 268 X10*3/uL (160-400); Red Cell Distribution Width 22.3 % (11.0-16.0); White Blood Count 11.2 X10*3/uL (4.8-10.8)
[2024-07-24 12:52] LABS: Anion Gap 13 (12-20); Blood Urea Nitrogen 15 mg/dL (9-16); Calcium 9.4 mg/dL (8.4-10.2); Carbon Dioxide 30 mmol/L (22-29); Chloride 103 mmol/L (96-108); Creatinine Clr Calc Pharmacy 42.2; Estimated Glomerular Filt Rate > 60; Glucose Random 98 mg/dL (60-115); Potassium 3.3 mmol/L (3.3-5.1); Sodium 143 mmol/L (135-145)
--- OUTSIDE RECORDS SUMMARY | 2024-07-24 13:03 | XMS_ITS | Encounter Summary ---
Author Organization [facility] [place] [address] Care Team Providers Care Skein Mercerizing Machine Operator Name Role Phone Melissa Shannon MD Primary Care Provider Encounter Details Date Type Department Care Team (Late st Contact Info) Description 04/02/2024 Lab Requisition [facility] - Main Lab [address] [facility] [place] [id number] Mookie Donovan MD [address] [place] [address] Anemia, unspecified Social History Tobacco Use Types [...] Care Team (Late st Contact Info) Description 09/25/2024 3:30 PM EDT Ancillary Procedure [facility] Cardiology [facility] [address] [phone] 01/09/2025 10:20 AM EDT Office Visit [facility] Cardiology [facility] [address] [phone] Awais Hylton MD [address] [address] documented as of this encounter Procedures Procedure Name Priority Date/Time Associated Diagnosis Comments MAGNESIUM Routine 04/03/2024 9:41 AM EST Anemia, unspecified COMPLETE BLOOD COUNT Routine 04/03/2024 8:41 AM EST Anemia, unspecified documented in this encounter Results * (ABNORMAL) Magnesium (04/03/2024 9:41 AM EST) Magnesium 1.5(L) 1.9 - 2.6 mg/dL LAB CHEMISTRY METHOD 04/03/2024 12:[address] [facility] Blood Venous blood specimen / Unknown Venipuncture / Unknown 04/03/2024 9:41 AM EST 04/03/2024 10:44 AM EST us Mookie Donovan MD LAB BLOOD ORDERABLES Final Result [facility] [address] [place] [address], * (ABNORMAL) Complete blood count (04/03/2024 8:41 AM EST) WBC 12.7(H) 4.8 - 10.8 K/mcL LAB HEMETOLOGY METHOD 04/03/2024 11:[address] [facility] RBC 3.30(L) 3.80 - 4.80 M/mcL LAB HEMETOLOGY METHOD 04/03/2024 11:[address] [facility] Hemoglobin 9.8(L) 11.5 - 16.0 g/dL LAB HEMETOLOGY METHOD 04/03/2024 11:[address] [facility] Hematocrit 29.3(L) 35.0 - 47.0 % LAB HEMETOLOGY METHOD 04/03/2024 11:[address] [facility] MCV 88.5 79.0 - 98.0 FL LAB HEMETOLOGY METHOD 04/03/2024 11:[address] [facility] MCH 29.6 27.0 - 32.0 pcg LAB HEMETOLOGY METHOD 04/03/2024 11:[address] [facility] MCHC 33.4 32.0 - 37.0 g/dL LAB HEMETOLOGY METHOD 04/03/2024 11:[address] [facility] RDW 17.3(H) 11.0 - 15.0 % LAB HEMETOLOGY METHOD 04/03/2024 11:[address] [facility] Platelets 565(H) 130 - 400 K/mcL LAB HEMETOLOGY METHOD 04/03/2024 11:[address] [facility] MPV 9.8 7.0 - 11.0 FL LAB HEMETOLOGY METHOD 04/03/2024 11:[address] [facility] NRBC 0.0 <1.0 % LAB HEMETOLOGY METHOD 04/03/2024 11:[address] [facility] NRBC Absolute 0.00 <0.10 K/mcL LAB HEMETOLOGY METHOD 04/03/2024 11:[address] [facility] Blood Venous blood specimen / Unknown Venipuncture / Unknown 04/03/2024 8:41 AM EST 04/03/2024 10:46 AM EST us Mookie Donovan MD LAB BLOOD ORDERABLES Final Result [facility] [address] [place] [address], documented in this encounter Visit Diagnoses Diagnosis Anemia, unspecified documented in this encounter Additional Health Concerns Infection Onset Date Last Indicated Resolved Time ESBL 04/25/2024 04/25/2024 documented as of this encounter Care Teams Skein Mercerizing Machine Operator Relationship Specialty Start Date End Date Melissa Shannon MD [address] [place] [address] PCP - General Internal Medicine 04/02/13 documented as of this encounter
--- OUTSIDE RECORDS SUMMARY | 2024-07-24 13:03 | XMS_ITS | Encounter Summary ---
Author Organization Jessi [facility] [place] [address] Care Team Providers Care Supervisor Plastic [employer] Name Role Phone Melissa Shannon MD Primary Care Provider Encounter Details Date Type Department Care Team (Late st Contact Info) Description 03/29/2024 Lab Requisition [facility] - Main Lab 299 [facility] [place] [phone] Mookie Donovan MD [address] [place] [address] Unspecified atrial fibrillation (CMS/HCC); Type 2 diabetes [...] Description 09/25/2024 3:30 PM EDT Ancillary Procedure [facility] Cardiology [facility] [address] [facility] [address] [place] [address] 01/09/2025 10:20 AM EDT Office Visit [facility] Cardiology [facility] [address] [address] Awais Hylton MD [address] [address] documented as of this encounter Procedures Procedure [...] Hold for add-ons. 03/29/2024 11:01 AM EST [facility] Comment:Auto resulted. Blood Venous blood specimen / Unknown 03/29/2024 6:51 AM EST 03/29/2024 9:08 AM EST us Mookie Donovan MD LAB BLOOD ORDERABLES Final Result [facility] [address] [place] [address], * (ABNORMAL) CBC auto differential (03/29/2024 6:51 AM EST) [facility] WBC 16.1(H) 4.8 - 10.8 K/mcL LAB HEMETOLOGY METHOD 03/29/2024 9:23 AM [facility] RBC 3.20(L) 3.80 - 4.80 M/mcL LAB HEMETOLOGY METHOD 03/29/2024 9:23 AM [facility] [...] METHOD 03/29/2024 9:23 AM [facility] Immature Granulocytes Relative 1.6 % LAB HEMETOLOGY METHOD 03/29/2024 9:23 AM [facility] Neutrophils Absolute 13.23(H) 1.50 - 7.00 K/mcL LAB HEMETOLOGY METHOD 03/29/2024 9:23 AM [facility] Lymphocytes Absolute 1.33 1.00 - 5.00 K/mcL LAB HEMETOLOGY METHOD 03/29/2024 9:23 AM [facility] Monocytes Absolute 1.19(H) 0.20 - 1.00 K/mcL LAB HEMETOLOGY METHOD 03/29/2024 9:23 AM [facility] Eosinophils Absolute 0.05 0.00 - 0.50 K/mcL LAB HEMETOLOGY METHOD 03/29/2024 9:23 AM [facility] Basophils Absolute 0.03 0.00 - 0.20 K/mcL LAB HEMETOLOGY METHOD 03/29/2024 9:23 AM [facility] Immature Granulocytes Absolute 0.25(H) 0.00 - 0.03 K/mcL LAB HEMETOLOGY METHOD 03/29/2024 9:23 AM EST [facility] Blood Venous blood specimen / Unknown Venipuncture / Unknown 03/29/2024 6:51 AM EST 03/29/2024 8:51 AM EST us Mookie Donovan MD LAB BLOOD ORDERABLES Final Result Performing Organization Address City/[facility]/ZIP Co de Phone Number [facility] [address] [place] [address], [place] [phone] * Hemoglobin A1c (03/29/2024 6:51 AM EST) [facility] Hemoglobin A1C 6.1 <6.5 % LAB CHEMISTRY METHOD 03/29/2024 11:40 AM [facility] Mean Bld Glu Estim. 128 mg/dL LAB CHEMISTRY METHOD 03/29/2024 11:40 AM [facility] Blood Venous blood specimen / Unknown Venipuncture / Unknown 03/29/2024 6:51 AM EST 03/29/2024 8:51 AM EST us Mookie Donovan MD LAB BLOOD ORDERABLES Final Result Performing Organization Address [facility]/ZIP Co de Phone Number [facility] [address] [place] [address], [place] [phone] * (ABNORMAL) Comprehensive metabolic panel (03/29/2024 6:51 AM EST) [facility] Sodium 141 133 - 145 mmol/L LAB CHEMISTRY METHOD 03/29/2024 9:50 AM EST [facility] Potassium 3.0(L) 3.5 - 5.5 mmol/L LAB CHEMISTRY METHOD 03/29/2024 9:50 AM [facility] Chloride 107 96 - 110 mmol/L LAB CHEMISTRY METHOD 03/29/2024 9:50 AM EST [facility] CO2 24 21 - 32 mmol/L LAB CHEMISTRY METHOD 03/29/2024 9:50 AM [facility] Anion Gap 10 3 - [...] LAB CHEMISTRY METHOD 03/29/2024 9:50 AM EST [facility] Blood Venous blood specimen / Unknown Venipuncture / Unknown 03/29/2024 6:51 AM EST 03/29/2024 8:51 AM EST us Mookie Donovan MD LAB BLOOD ORDERABLES Final Result [facility] [address] [place] [address], documented in this encounter Visit Diagnoses Diagnosis Unspecified atrial fibrillation (CMS/HCC) Type 2 diabetes mellitus without complications Anemia, unspecified documented in this encounter Additional Health Concerns Infection Onset Date Last Indicated Resolved Time ESBL 04/25/2024 04/25/2024 documented as of this encounter Care Teams Supervisor Plastic Sheets Relationship Specialty Start Date End Date Melissa Shannon MD [address] [place] [address] PCP - General Internal Medicine 04/02/13 documented as of this encounter
--- OUTSIDE RECORDS SUMMARY | 2024-07-24 13:03 | XMS_ITS | Encounter Summary ---
Author Organization Jessi [facility] [place] [address] Care Team Providers Care Senior Manager [employer] Name Role Phone Melissa Shannon MD Primary Care Provider Encounter Details Date Type Department Care Team (Late st Contact Info) Description 04/09/2024 Lab Requisition [facility] - Main Lab 299 [facility] [place] [phone] Mookie Donovan MD [address] [place] [address] Anemia, unspecified Social History Tobacco Use Types [...] Description 09/25/2024 3:30 PM EDT Ancillary Procedure [facility] [address] [phone] 01/09/2025 10:20 AM EDT Office Visit [facility] [address] [phone] Awais Hylton MD [address] [place] [address] documented as of this encounter Procedures Procedure Name Priority Date/Time Associated Diagnosis Comments COMPLETE BLOOD COUNT Routine 04/10/2024 5:20 AM EST Anemia, unspecified BASIC METABOLIC PANEL Routine 04/10/2024 5:20 AM EST Anemia, unspecified documented in this encounter Results * (ABNORMAL) Basic metabolic panel (04/10/2024 5:20 AM EST) Sodium 139 133 - 145 mmol/L LAB CHEMISTRY METHOD 04/10/2024 8:03 AM [facility] Potassium 3.8 3.5 - 5.5 mmol/L LAB CHEMISTRY METHOD 04/10/2024 8:03 AM [facility] Chloride 104 96 - 110 mmol/L LAB CHEMISTRY METHOD 04/10/2024 8:03 AM [facility] CO2 31 21 - 32 mmol/L LAB CHEMISTRY METHOD 04/10/2024 8:03 AM [facility] Anion Gap 4 3 - 11 LAB CHEMISTRY METHOD 04/10/2024 8:03 AM [facility] Glucose 123(H) 70 - 100 mg/dL LAB CHEMISTRY METHOD 04/10/2024 8:03 AM [facility] BUN 11 5 - 25 mg/dL LAB CHEMISTRY METHOD 04/10/2024 8:03 AM [facility] Creatinine 0.44(L) 0.50 - 1.10 mg/dL LAB CHEMISTRY METHOD 04/10/2024 8:03 AM [facility] eGFR 96 >=60 mL/min/1. 73m2 LAB CHEMISTRY METHOD 04/10/2024 8:03 AM [facility] Comment:Calculation based on the??Chronic Kidney Disease Epidemiology Collaboration (CKD-EPI) equation refit??without adjustment for race. BUN/Creatinine Ratio 25.0 LAB CHEMISTRY METHOD 04/10/2024 8:03 AM [facility] Calcium 8.1(L) 8.5 - 10.5 mg/dL LAB CHEMISTRY METHOD 04/10/2024 8:03 AM [facility] Blood Venous blood specimen / Unknown Venipuncture / Unknown 04/10/2024 5:20 AM EST 04/10/2024 7:34 AM EST us Mookie Donovan MD LAB BLOOD ORDERABLES Final Result [facility] [address] [place] [address], * (ABNORMAL) Complete blood count (04/10/2024 5:20 AM EST) WBC 10.3 4.8 - 10.8 K/mcL LAB HEMETOLOGY METHOD 04/10/2024 7:58 AM [facility] RBC 3.40(L) 3.80 - 4.80 M/mcL LAB HEMETOLOGY METHOD 04/10/2024 7:58 AM [facility] Hemoglobin 9.2(L) 11.5 - 16.0 g/dL LAB HEMETOLOGY METHOD 04/10/2024 7:58 AM [facility] Hematocrit 30.2(L) 35.0 - 47.0 % LAB HEMETOLOGY METHOD 04/10/2024 7:58 AM [facility] MCV 89.9 79.0 - 98.0 FL LAB HEMETOLOGY METHOD 04/10/2024 7:58 AM [facility] MCH 27.4 27.0 - 32.0 pcg LAB HEMETOLOGY METHOD 04/10/2024 7:58 AM [facility] MCHC 30.5(L) 32.0 - 37.0 g/dL LAB HEMETOLOGY METHOD 04/10/2024 7:58 AM EST [facility] RDW 16.9(H) 11.0 - 15.0 % LAB HEMETOLOGY METHOD 04/10/2024 7:58 AM EST [facility] Platelets 330 130 - 400 K/mcL LAB HEMETOLOGY METHOD 04/10/2024 7:58 AM EST [facility] MPV 10.9 7.0 - 11.0 FL LAB HEMETOLOGY METHOD 04/10/2024 7:58 AM EST [facility] NRBC 0.0 <1.0 % LAB HEMETOLOGY METHOD 04/10/2024 7:58 AM EST [facility] NRBC Absolute 0.00 <0.10 K/mcL LAB HEMETOLOGY METHOD 04/10/2024 7:58 AM [facility] Blood Venous blood specimen / Unknown Venipuncture / Unknown 04/10/2024 5:20 AM EST 04/10/2024 7:34 AM EST Mookie Donovan MD LAB BLOOD ORDERABLES Final Result [facility] [address] [place] [address], documented in this encounter Visit Diagnoses Diagnosis Anemia, unspecified documented in this encounter Additional Health Concerns Infection Onset Date Last Indicated Resolved Time ESBL 04/25/2024 04/25/2024 documented as of this encounter Care Teams Senior Manager [employer] Relationship Specialty Start Date End Date Melissa Shannon MD [address] [place] [address] PCP - General Internal Medicine 04/02/13 documented as of this encounter
--- OUTSIDE RECORDS SUMMARY | 2024-07-24 13:03 | XMS_ITS | Encounter Summary ---
[facility] [place] [address] Care Team Providers Care Furnace Operator [employer] Name Role Phone Melissa Shannon MD Primary Care Provider [phone] Encounter Details Date Type Department Care Team (Late Contact Info) Description 04/06/2024 Lab Requisition [facility] - Main Lab 299 [facility] [place] [phone] Mookie Donovan MD [address] [place] [address] Unspecified dementia, unspecified severity, without behavioral disturbance, [...] Description 09/25/2024 3:30 PM EDT Ancillary Procedure [facility] Cardiology [facility] [address] [place] [address] 01/09/2025 10:20 AM EDT Office Visit [facility] Cardiology [facility] [address] [phone] Awais Hylton MD [address] [address] documented as of this encounter Procedures Procedure [...] LAB MICROBIOLOGY - GENERAL ORDERABLES Final Result [facility] 299 [place] [address], documented in this encounter Visit Diagnoses Diagnosis Unspecified dementia, unspecified severity, without behavioral disturbance, psychotic disturbance, mood disturbance, and anxiety (CMS/HCC) Unspecified infectious disease documented in this encounter Additional Health Concerns Infection Onset Date Last Indicated Resolved Time ESBL 04/25/2024 04/25/2024 documented as of this encounter Care Teams Furnace Operator [employer] Relationship Specialty Start Date End Date Melissa Shannon MD [address] [place] [address] PCP - General Internal Medicine 04/02/13 documented as of this encounter
--- OUTSIDE RECORDS SUMMARY | 2024-07-24 13:03 | XMS_ITS | Clinical Summary ---
Author Organization 300 [facility] Address [address] [place] [address] Phone Care Team Providers Care Workers Compensation Adjuster Name Role Phone Melissa Shannon MD Primary [...] mometasone (NASONEX) 50 mcg/actuation nasal spray 1 [place] by Nasal route at bedtime. Active montelukast [...] her to speak with her PCP and/your manager infrastructure given her recent COVID infection as well [...] Department Care Team Description 04/26/2024 Lab Requisition [facility] Main Lab 299 [facility] [employer] [place] [address] Mookie Donovan MD Anemia, unspecified; Type 2 diabetes mellitus without complications ([facility]/HCC) 04/26/[address] [facility] Lab 299 [facility] [employer] [place] [address] Mookie Donovan MD Dysuria from Last 3 Months Family History Medical [...] Description 09/25/2024 3:30 PM EDT Ancillary Procedure [facility] Cardiology [facility] [address] [phone] 01/09/2025 10:20 AM EDT Office Visit [facility] Cardiology [facility] [address] [phone] Awais Hylton MD [address] [address] Health Maintenance Due Date Last Done Comments Diabetes: Annual Foot Exam 1950 Diabetes: Annual Retina Eye Exam 1950 Pneumococcal Vaccine: 50+ Years (1 of 2 - PCV) 01/09/1960 RSV Immunization Patients 60+ Years Old (1 - 1-dose 75+ series) 01/09/2016 Zoster Vaccines (2 of 2) 04/20/2021 02/23/2021 Cholesterol Screening (Lipid Panel) 04/03/2022 Depression Screening 04/03/2022 Falls Risk Assessment 04/03/2022 Medicare Annual Wellness Visit 04/03/2022 Osteoporosis Screening (Bone Density Screening) 04/03/2022 Social Influencers of Health Screening 04/03/2022 COVID-19 Vaccine ( season) 2023 Diabetes: Annual Urine Albumin-Creatinine Ratio (uACR) 03/29/2024 Diabetes: Blood Sugar Control Test (HGBA1C) 09/27/2024 03/29/2024 Influenza Vaccine (Season Ended) 2024 12/29/2022, 01/19/2022, 12/19/2020 Diabetes: Annual GFR (Glomerular Filtration Rate) 04/26/2025 [...] URINE Routine 04/25/2024 1:30 PM EST Dysuria HEMOGLOBIN A1C Routine 03/29/2024 6:51 AM EST Unspecified atrial fibrillation (CMS/HCC) Type 2 diabetes mellitus without complications (CMS/HCC) Anemia, unspecified from Last 3 Months or Most Recently Relevant to Health Maintenance Results * (ABNORMAL) Complete blood count (04/26/2024 6:34 AM EST) WBC 10.3 4.8 - 10.8 K/mcL LAB HEMETOLOGY METHOD 04/26/2024 8:13 AM [facility] RBC 3.60(L) 3.80 - 4.80 M/mcL LAB HEMETOLOGY METHOD 04/26/2024 8:13 AM [facility] Hemoglobin 9.7(L) 11.5 - 16.0 g/dL LAB HEMETOLOGY METHOD 04/26/2024 8:13 AM [facility] Hematocrit 31.6(L) 35.0 - 47.0 % LAB HEMETOLOGY METHOD 04/26/2024 8:13 AM [facility] MCV 88.3 79.0 - 98.0 FL LAB HEMETOLOGY METHOD 04/26/2024 8:13 AM [facility] MCH 27.1 27.0 - 32.0 pcg LAB HEMETOLOGY METHOD 04/26/2024 8:13 AM EST [facility] MCHC 30.7(L) 32.0 - 37.0 g/dL LAB HEMETOLOGY METHOD 04/26/2024 8:13 AM EST [facility] RDW 17.0(H) 11.0 - 15.0 % LAB HEMETOLOGY METHOD 04/26/2024 8:13 AM EST [facility] Platelets 215 130 - 400 K/mcL LAB HEMETOLOGY METHOD 04/26/2024 8:13 AM [facility] MPV 10.8 7.0 - 11.0 FL LAB HEMETOLOGY METHOD 04/26/2024 8:13 AM [facility] NRBC 0.0 <1.0 % LAB HEMETOLOGY METHOD 04/26/2024 8:13 AM [facility] NRBC Absolute 0.00 <0.10 K/mcL LAB HEMETOLOGY METHOD 04/26/2024 8:13 AM [facility] Blood Venous blood specimen / Unknown Venipuncture / Unknown 04/26/2024 6:34 AM EST 04/26/2024 7:53 AM EST Mookie Donovan MD LAB BLOOD ORDERABLES Final Result [facility] [address] [place] [address], * (ABNORMAL) Triiodothyronine free (04/26/2024 6:34 AM EST) T3, Free 223(L) 230 - 420 pcg/dL LAB CHEMISTRY METHOD 04/26/2024 8:47 AM EST [facility] Blood Venous blood specimen / Unknown Venipuncture / Unknown 04/26/2024 6:34 AM EST 04/26/2024 7:53 AM EST us Mookie Donovan MD LAB BLOOD ORDERABLES Final Result Performing Organization Address [facility] de Phone Number [facility] [address] [place] [address], [place] [phone] * (ABNORMAL) Thyroid stimulating hormone (04/26/2024 6:34 AM EST) TSH 6.69(H) 0.40 - 4.00 mcIU/mL LAB CHEMISTRY METHOD 04/26/2024 8:48 AM EST [facility] Blood Venous blood specimen / Unknown Venipuncture / Unknown 04/26/2024 6:34 AM EST 04/26/2024 7:53 AM EST us Mookie Donovan MD LAB BLOOD ORDERABLES Final Result Performing Organization Address [facility] de Phone Number [facility] [address] [place] [address], [place] [phone] * Thyroxine free (04/26/2024 6:34 AM EST) Free T4 1.25 0.70 - 1.80 ng/dL LAB CHEMISTRY METHOD 04/26/2024 8:46 AM EST [facility] Blood Venous blood specimen / Unknown Venipuncture / Unknown 04/26/2024 6:34 AM EST 04/26/2024 7:53 AM EST us Mookie Donovan MD LAB BLOOD ORDERABLES Final Result Performing Organization Address [facility] de Phone Number [facility] [address] [place] [address], [place] [phone] * (ABNORMAL) Basic metabolic panel (04/26/2024 6:34 AM EST) Sodium 137 133 - 145 mmol/L LAB CHEMISTRY METHOD 04/26/2024 8:38 AM [facility] Potassium 3.7 3.5 - 5.5 mmol/L LAB CHEMISTRY METHOD 04/26/2024 8:38 AM [facility] Chloride 101 96 - 110 mmol/L LAB CHEMISTRY METHOD 04/26/2024 8:38 AM [facility] CO2 34(H) 21 - 32 mmol/L LAB CHEMISTRY METHOD 04/26/2024 8:38 AM [facility] Anion Gap 2(L) 3 - 11 LAB CHEMISTRY METHOD 04/26/2024 8:38 AM [facility] Glucose 133(H) 70 - 100 mg/dL LAB CHEMISTRY METHOD 04/26/2024 8:38 AM [facility] BUN 15 5 - 25 mg/dL LAB CHEMISTRY METHOD 04/26/2024 8:38 AM [facility] Creatinine 0.60 0.50 - 1.10 mg/dL LAB CHEMISTRY METHOD 04/26/2024 8:38 AM [facility] eGFR 89 >=60 mL/min/1. 73m2 LAB CHEMISTRY METHOD 04/26/2024 8:38 AM [facility] Comment:Calculation based on the??Chronic Kidney Disease Epidemiology Collaboration (CKD-EPI) equation refit??without adjustment for race. BUN/Creatinine Ratio 25.0 LAB CHEMISTRY METHOD 04/26/2024 8:38 AM [facility] Calcium 8.7 8.5 - 10.5 mg/dL LAB CHEMISTRY METHOD 04/26/2024 8:38 AM [facility] Blood Venous blood specimen / Unknown Venipuncture / Unknown 04/26/2024 6:34 AM EST 04/26/2024 7:53 AM EST us Mookie Donovan MD LAB BLOOD ORDERABLES Final Result [facility] [address] [place] [address], * (ABNORMAL) Urinalysis with reflex microscopic (04/25/2024 1:30 PM EST) Pathologist [facility] Specific [place] Urine 1.028 1.003 - 1.030 LAB URINALYSIS - AUTOMATED METHOD 04/26/2024 9:42 AM [facility] pH, Urine 5.5 5.0 - 8.0 pH LAB URINALYSIS - AUTOMATED METHOD 04/26/2024 9:42 AM [facility] Leukocytes, Urine Moderate(A) Negative LAB URINALYSIS - AUTOMATED METHOD 04/26/2024 9:42 AM [facility] Nitrite, Urine Negative Negative LAB URINALYSIS - AUTOMATED METHOD 04/26/2024 9:42 AM [facility] Protein, Urine 100(A) <=Trace mg/dL LAB URINALYSIS - AUTOMATED METHOD 04/26/2024 9:42 AM [facility] Glucose, Urine Negative Negative mg/dL LAB URINALYSIS - AUTOMATED METHOD 04/26/2024 9:42 AM [facility] Ketones, Urine Trace(A) Negative mg/dL LAB URINALYSIS - AUTOMATED METHOD 04/26/2024 9:42 AM [facility] Urobilinogen , Urine 1.0 0.2 - 1.0 mg/dL LAB URINALYSIS - AUTOMATED METHOD 04/26/2024 9:42 AM [facility] Bilirubin, Urine Negative Negative LAB URINALYSIS - AUTOMATED METHOD 04/26/2024 9:42 AM [facility] Blood, Urine Moderate(A) Negative LAB URINALYSIS - AUTOMATED METHOD 04/26/2024 9:42 AM [facility] RBC, Urine 7.4(H) 0 - 4 /HPF LAB URINALYSIS - AUTOMATED METHOD 04/26/2024 9:42 AM [facility] WBC, Urine 700.4(H) 0 - 4 /HPF LAB URINALYSIS - AUTOMATED METHOD 04/26/2024 9:42 AM [facility] Squamous Epithelial, Urine 48 0 - 60 /LPF LAB URINALYSIS - AUTOMATED METHOD 04/26/2024 9:42 AM [facility] Bacteria, Urine Many(A) Negative /HPF LAB URINALYSIS - AUTOMATED METHOD 04/26/2024 9:42 AM [facility] Hyaline Casts, Urine 1.0 0 - 3 /LPF LAB URINALYSIS - AUTOMATED METHOD 04/26/2024 9:42 AM [facility] Urine Urine specimen obtained by clean catch procedure / Unknown 04/25/2024 1:30 PM EST 04/26/2024 8:19 AM EST Mookie Donovan MD LAB URINE ORDERABLES Final Result [facility] [address] [place] [address], * (ABNORMAL) Culture urine (04/25/2024 1:30 PM EST) Culture, Urine >100,000 CFU/mL Escherichia coli ESBL(A) [place] 04/30/2024 9:38 AM [facility] Comment: THIS ORGANISM IS [...] pneumoniae ESBL(A) [place] 04/30/2024 9:38 AM EST [facility] Comment: THIS ORGANISM IS POSITIVE [...] 1:30 PM EST 04/26/2024 8:19 AM EST [facility] - 04/30/2024 9:38 AM [...] GENERAL ORDERABLES Final Result Performing Organization Address City/[facility]/ZIP Co de Phone Number [facility] [address] [place] [address], [place] [phone] * Hemoglobin A1c (03/29/2024 6:51 AM EST) Hemoglobin A1C 6.1 <6.5 % LAB CHEMISTRY METHOD 03/29/2024 11:40 AM EST [facility] Mean Bld Glu Estim. 128 mg/dL LAB CHEMISTRY METHOD 03/29/2024 11:40 AM EST [facility] Blood Venous blood specimen / Unknown Venipuncture / Unknown 03/29/2024 6:51 AM EST 03/29/2024 8:51 AM EST us Mookie Donovan MD LAB BLOOD ORDERABLES Final Result Performing Organization Address City/[facility]/ZIP Co de Phone Number [facility] [address] [place] [address], [place] [phone] from Last 3 Months or Most Recently Relevant to Health Maintenance Additional Health Concerns Infection Onset Date Last Indicated ESBL 04/25/2024 04/25/2024 Insurance MEDICA[place] - [place] MEDICARE Care Teams Workers Compensation Adjuster Relationship Specialty Start Date End Date Melissa Shannon MD [address] [place] [address] PCP - General Internal Medicine 04/02/13
--- OUTSIDE RECORDS SUMMARY | 2024-07-24 13:03 | XMS_ITS | Encounter Summary ---
Author Organization Jessi [facility] [place] [address] Care Team Providers Care Green End Department Supervisor Name Role Phone Melissa Shannon MD Primary Care Provider Encounter Details Date Type Department Care Team (Late st Contact Info) Description 04/26/2024 Lab Requisition [facility] - Main Lab 299 [facility] [place] [phone] Mookie Donovan MD [address] [place] [address] Dysuria Social History Tobacco Use Types Packs/Day [...] Description 09/25/2024 3:30 PM EDT Ancillary Procedure [facility] Cardiology [facility] [address] [phone] 01/09/2025 10:20 AM EDT Office Visit [facility] Cardiology [facility] [address] [phone] Awais Hylton MD [address] [place] [address] documented as of this encounter Procedures Procedure Name Priority Date/Time Associated Diagnosis Comments URINALYSIS WITH REFLEX MICROSCOPIC Routine 04/25/2024 1:30 PM EST Dysuria URINALYSIS WITH REFLEX MICROSCOPIC Routine 04/25/2024 1:30 PM EST Dysuria CULTURE URINE Routine 04/25/2024 1:30 PM EST Dysuria documented in this encounter Results * (ABNORMAL) Urinalysis with reflex microscopic (04/25/2024 1:30 PM EST) Specific [place] Urine 1.028 1.003 - 1.030 LAB URINALYSIS - AUTOMATED METHOD 04/26/2024 9:42 AM [facility] pH, Urine 5.5 5.0 - 8.0 pH LAB URINALYSIS - AUTOMATED METHOD 04/26/2024 9:42 AM [facility] Leukocytes, Urine Moderate(A) Negative LAB URINALYSIS - AUTOMATED METHOD 04/26/2024 9:42 AM [facility] Nitrite, Urine Negative Negative LAB URINALYSIS - AUTOMATED METHOD 04/26/2024 9:42 AM [facility] Protein, Urine 100(A) <=Trace mg/dL LAB URINALYSIS - AUTOMATED METHOD 04/26/2024 9:42 AM [facility] Glucose, Urine Negative Negative mg/dL LAB URINALYSIS - AUTOMATED METHOD 04/26/2024 9:42 AM [facility] Ketones, Urine Trace(A) Negative mg/dL LAB URINALYSIS - AUTOMATED METHOD 04/26/2024 9:42 AM [facility] Urobilinogen , Urine 1.0 0.2 - 1.0 mg/dL LAB URINALYSIS - AUTOMATED METHOD 04/26/2024 9:42 AM [facility] Bilirubin, Urine Negative Negative LAB URINALYSIS - AUTOMATED METHOD 04/26/2024 9:42 AM [facility] Blood, Urine Moderate(A) Negative LAB URINALYSIS - AUTOMATED METHOD 04/26/2024 9:42 AM [facility] RBC, Urine 7.4(H) 0 - 4 /HPF LAB URINALYSIS - AUTOMATED METHOD 04/26/2024 9:42 AM [facility] WBC, Urine 700.4(H) 0 - 4 /HPF LAB URINALYSIS - AUTOMATED METHOD 04/26/2024 9:42 AM [facility] Squamous Epithelial, Urine 48 0 - 60 /LPF LAB URINALYSIS - AUTOMATED METHOD 04/26/2024 9:42 AM [facility] Bacteria, Urine Many(A) Negative /HPF LAB URINALYSIS - AUTOMATED METHOD 04/26/2024 9:42 AM [facility] Hyaline Casts, Urine 1.0 0 - 3 /LPF LAB URINALYSIS - AUTOMATED METHOD 04/26/2024 9:42 AM [facility] Urine Urine specimen obtained by clean catch procedure / Unknown 04/25/2024 1:30 PM EST 04/26/2024 8:19 AM EST Mookie Donovan MD LAB URINE ORDERABLES Final Result [facility] [address] [place] [address], * (ABNORMAL) Culture urine (04/25/2024 1:30 PM EST) Culture, Urine >100,000 CFU/mL Escherichia coli ESBL(A) WARREN 04/30/2024 9:38 AM [facility] Comment: THIS ORGANISM IS [...] PM EST 04/26/2024 8:19 AM EST Narrative [facility] - 04/30/2024 9:38 AM EST [...] <=1 ug/ml: Susceptible Klebsiella pneumoniae ESBL Gentamicin WARRNE <=1 ug/ml: Susceptible Klebsiella pneumoniae ESBL Ciprofloxacin WARREN 1 ug/ml: Resistant Klebsiella pneumoniae ESBL Levofloxacin WARREN 1 ug/ml: Intermediate Klebsiella pneumoniae ESBL Nitrofurantoin WARREN 64 ug/ml: Intermediate Klebsiella pneumoniae ESBL Trimethoprim/Sulfamethoxazo le WARREN >=320 ug/ml: Resistant us Mookie Donovan MD LAB MICROBIOLOGY - GENERAL ORDERABLES Final Result Performing Organization Address City/State/[facility] Co de Phone Number [facility] ([facility] [address] [place] [address], documented in this encounter Visit Diagnoses Diagnosis Dysuria documented in this encounter Additional Health Concerns Infection Onset Date Last Indicated Resolved Time ESBL 04/25/2024 04/25/2024 documented as of this encounter Care Teams Green End Department Supervisor Relationship Specialty Start Date End Date Melissa Shannon MD [address] [place] [address] PCP - General Internal Medicine 04/02/13 documented as of this encounter
--- OUTSIDE RECORDS SUMMARY | 2024-07-24 13:03 | XMS_ITS | Encounter Summary ---
Author Organization Jessi [facility] [place] [address] Care Team Providers Care Poly Operator Name Role Phone Melissa Shannon MD Primary Care Provider Encounter Details Date Type Department Care Team (Late st Contact Info) Description 04/16/2024 Lab Requisition [facility] - Main Lab 299 [facility] [place] [phone] Mookie Donovan MD [address] [place] [address] Anemia, unspecified Social History Tobacco Use Types [...] Description 09/25/2024 3:30 PM EDT Ancillary Procedure [facility] Cardiology [facility] [address] [phone] 01/09/2025 10:20 AM EDT Office Visit [facility] Cardiology [facility] [address] [phone] Awais Hylton MD [address] [place] [address] documented as of this encounter Procedures Procedure Name Priority Date/Time Associated Diagnosis Comments COMPLETE BLOOD COUNT Routine 04/17/2024 7:30 AM EST Anemia, unspecified BASIC METABOLIC PANEL Routine 04/17/2024 7:30 AM EST Anemia, unspecified documented in this encounter Results * (ABNORMAL) Basic metabolic panel (04/17/2024 7:30 AM EST) Sodium 133 133 - 145 mmol/L LAB CHEMISTRY METHOD 04/17/2024 10:43 AM [facility] Potassium 4.1 3.5 - 5.5 mmol/L LAB CHEMISTRY METHOD 04/17/2024 10:43 AM [facility] Chloride 95(L) 96 - 110 mmol/L LAB CHEMISTRY METHOD 04/17/2024 10:43 AM [facility] CO2 28 21 - 32 mmol/L LAB CHEMISTRY METHOD 04/17/2024 10:43 AM [facility] Anion Gap 10 3 - 11 LAB CHEMISTRY METHOD 04/17/2024 10:43 AM [facility] Glucose 126(H) 70 - 100 mg/dL LAB CHEMISTRY METHOD 04/17/2024 10:43 AM [facility] BUN 10 5 - 25 mg/dL LAB CHEMISTRY METHOD 04/17/2024 10:43 AM [facility] Creatinine 0.59 0.50 - 1.10 mg/dL LAB CHEMISTRY METHOD 04/17/2024 10:43 AM [facility] eGFR 90 >=60 mL/min/1. 73m2 LAB CHEMISTRY METHOD 04/17/2024 10:43 AM [facility] Comment:Calculation based on the??Chronic Kidney Disease Epidemiology Collaboration (CKD-EPI) equation refit??without adjustment for race. BUN/Creatinine Ratio 16.9 LAB CHEMISTRY METHOD 04/17/2024 10:43 AM [facility] Calcium 8.8 8.5 - 10.5 mg/dL LAB CHEMISTRY METHOD 04/17/2024 10:43 AM [facility] Blood Venous blood specimen / Unknown Venipuncture / Unknown 04/17/2024 7:30 AM EST 04/17/2024 10:07 AM EST us Mookie Donovan MD LAB BLOOD ORDERABLES Final Result [facility] [address] [place] [address], * (ABNORMAL) Complete blood count (04/17/2024 7:30 AM EST) WBC 10.2 4.8 - 10.8 K/mcL LAB HEMETOLOGY METHOD 04/17/2024 10:33 AM [facility] RBC 3.70(L) 3.80 - 4.80 M/mcL LAB HEMETOLOGY METHOD 04/17/2024 10:33 AM [facility] Hemoglobin 10.0(L) 11.5 - 16.0 g/dL LAB HEMETOLOGY METHOD 04/17/2024 10:33 AM [facility] Hematocrit 32.0(L) 35.0 - 47.0 % LAB HEMETOLOGY METHOD 04/17/2024 10:33 AM [facility] MCV 87.2 79.0 - 98.0 FL LAB HEMETOLOGY METHOD 04/17/2024 10:33 AM [facility] MCH 27.2 27.0 - 32.0 pcg LAB HEMETOLOGY METHOD 04/17/2024 10:33 AM [facility] MCHC 31.3(L) 32.0 - 37.0 g/dL LAB HEMETOLOGY METHOD 04/17/2024 10:33 AM EST [facility] RDW 16.4(H) 11.0 - 15.0 % LAB HEMETOLOGY METHOD 04/17/2024 10:33 AM EST [facility] Platelets 191 130 - 400 K/mcL LAB HEMETOLOGY METHOD 04/17/2024 10:33 AM EST [facility] MPV 10.9 7.0 - 11.0 FL LAB HEMETOLOGY METHOD 04/17/2024 10:33 AM EST [facility] NRBC 0.0 <1.0 % LAB HEMETOLOGY METHOD 04/17/2024 10:33 AM EST [facility] NRBC Absolute 0.00 <0.10 K/mcL LAB HEMETOLOGY METHOD 04/17/2024 10:33 AM [facility] Blood Venous blood specimen / Unknown Venipuncture / Unknown 04/17/2024 7:30 AM EST 04/17/2024 10:07 AM EST Mookie Donovan MD LAB BLOOD ORDERABLES Final Result [facility] [address] [place] [address], documented in this encounter Visit Diagnoses Diagnosis Anemia, unspecified documented in this encounter Additional Health Concerns Infection Onset Date Last Indicated Resolved Time ESBL 04/25/2024 04/25/2024 documented as of this encounter Care Teams Poly Operator Relationship Specialty Start Date End Date Melissa Shannon MD [address] [place] [address] PCP - General Internal Medicine 04/02/13 documented as of this encounter
--- OUTSIDE RECORDS SUMMARY | 2024-07-24 13:03 | XMS_ITS | Encounter Summary ---
Author Organization Jessi [facility] [place] [address] Care Team Providers Care Turfgrass Technician Name Role Phone Melissa Shannon MD Primary Care Provider Encounter Details Date Type Department Care Team (Late st Contact Info) Description 04/26/2024 Lab Requisition [facility] - Main Lab 299 [facility] [place] [phone] Mookie Donovan MD [address] [place] [address] Anemia, unspecified; Type 2 diabetes mellitus without [...] Description 09/25/2024 3:30 PM EDT Ancillary Procedure [facility] Cardiology [facility] [address] [phone] 01/09/2025 10:20 AM EDT Office Visit [facility] Cardiology [facility] [address] [phone] Awais Hylton MD [address] [address] documented as of this encounter Procedures Procedure [...] Donovan MD LAB BLOOD ORDERABLES Final Result [facility]) [facility] [address] [place] [address], * Thyroxine free (04/26/2024 6:34 AM EST) Pathologist [facility] Free T4 1.25 0.70 - 1.80 ng/dL LAB CHEMISTRY METHOD 04/26/2024 8:46 AM EST [facility] Blood Venous blood specimen / Unknown Venipuncture / Unknown 04/26/2024 6:34 AM EST 04/26/2024 7:53 AM EST us Mookie Donovan MD LAB BLOOD ORDERABLES Final Result Performing Organization Address City/[facility]/ZIP Co de Phone Number [facility] [address] [place] [address], [place] [phone] * (ABNORMAL) Thyroid stimulating hormone (04/26/2024 6:34 AM EST) [facility] TSH 6.69(H) 0.40 - 4.00 mcIU/mL LAB CHEMISTRY METHOD 04/26/2024 8:48 AM EST [facility] Blood Venous blood specimen / Unknown Venipuncture / Unknown 04/26/2024 6:34 AM EST 04/26/2024 7:53 AM EST us Mookie Donovan MD LAB BLOOD ORDERABLES Final Result Performing Organization Address [facility] Co de Phone Number [facility] [address] [place] [address], [place] [phone] * (ABNORMAL) Basic metabolic panel (04/26/2024 6:34 AM EST) [facility] Sodium 137 133 - 145 mmol/L LAB CHEMISTRY METHOD 04/26/2024 8:38 AM EST [facility] Potassium 3.7 3.5 - 5.5 mmol/L LAB CHEMISTRY METHOD 04/26/2024 8:38 AM EST [facility] Chloride 101 96 - 110 mmol/L LAB CHEMISTRY METHOD 04/26/2024 8:38 AM EST [facility] CO2 34(H) 21 - [...] ORDERABLES Final Result [facility] [address] [place] [address], * (ABNORMAL) Complete blood count (04/26/2024 6:34 [...] MD LAB BLOOD ORDERABLES Final Result [facility] H[facility]PITAL LAB [address] [place] [address], documented in this encounter Visit Diagnoses Diagnosis Anemia, unspecified Type 2 diabetes mellitus without complications documented in this encounter Additional Health Concerns Infection Onset Date Last Indicated Resolved Time ESBL 04/25/2024 04/25/2024 documented as of this encounter Care Teams Turfgrass Technician Relationship Specialty Start Date End Date Melissa Shannon MD [address] [place] [address] PCP - General Internal Medicine 04/02/13 documented as of this encounter
[2024-07-24 14:22] VITALS: BP 168/88; PULSE 86; RESP 16; TEMP 36.6; O2SAT 95
[2024-07-24] MEDS: iohexoL 350 MG/ML 100 ML INFUS..BTL IV (14:39)
[2024-07-24 18:31] VITALS: BP 168/88; PULSE 86; RESP 16; TEMP 36.6; O2SAT 95
== END 2024-07-24 18:32 | disposition home or self-care (01) ==
PROVIDERS: Emergency Provider Emergency Medicine; PCP Internal Medicine
DX: S01.01XA Laceration without foreign body of scalp, initial encounter (principal); S09.90XA Unspecified injury of head, initial encounter; W18.39XA Other fall on same level, initial encounter; Y93.89 Activity, other specified; Y92.019 Unspecified place in single-family (private) house as the place of occurrence of the external cause; Y99.9 Unspecified external cause status
CPT/HCPCS: 12001; 36415; 70450; 71045; 71275; 72125; 80048; 85025; 94640; 99284; Q9967

== ENCOUNTER → 2024-07-24 11:09 | Outpatient (BNV) | payer MEDICARE, MEDICAID, SELFPAY | PROVIDERS: Emergency Provider Emergency Medicine; PCP Internal Medicine; Visit Provider Radiology Diagnostic Radiology | DX: I77.810 Thoracic aortic ectasia (principal); M47.812 Spondylosis without myelopathy or radiculopathy, cervical region; S09.90XA Unspecified injury of head, initial encounter; R91.8 Other nonspecific abnormal finding of lung field; R05.9 Cough, unspecified | CPT/HCPCS: 70450; 71045; 71275; 72125 ==

== ENCOUNTER → 2024-07-24 23:59 | Outpatient (BNV) | payer MEDICARE, MEDICAID, SELFPAY | PROVIDERS: PCP Internal Medicine; Visit Provider Internal Medicine | DX: U07.1 COVID-19 (principal); J44.0 Chronic obstructive pulmonary disease with (acute) lower respiratory infection; R30.0 Dysuria | CPT/HCPCS: G0179 ==

== ENCOUNTER 2024-07-26 06:20 | Outpatient (REF) | payer MEDICARE, MEDICAID, SELFPAY ==
--- OUTSIDE RECORDS SUMMARY | 2024-07-26 06:23 | XMS_ITS | Encounter Summary ---
Author Organization Jessi [facility] [place] [address] Care Team Providers Care Tooth Clerk Name Role Phone Melissa Shannon MD Primary Care Provider Encounter Details Date Type Department Care Team (Late st Contact Info) Description 04/09/2024 Lab Requisition [facility] - Main Lab 299 [facility] [employer] [phone] Mookie Donovan MD [address] [place] [address] Anemia, unspecified Social History Tobacco Use Types [...] Description 09/25/2024 3:30 PM EDT Ancillary Procedure [facility] Cardiology [facility] [address] [phone] 01/09/2025 10:20 AM EDT Office Visit [facility] Cardiology [facility] [address] [phone] Awais Hylton MD [address] [place] [address] documented as of this encounter Procedures Procedure Name Priority Date/Time Associated Diagnosis Comments COMPLETE BLOOD COUNT Routine 04/10/2024 5:20 AM EST Anemia, unspecified BASIC METABOLIC PANEL Routine 04/10/2024 5:20 AM EST Anemia, unspecified documented in this encounter Results * (ABNORMAL) Basic metabolic panel (04/10/2024 5:20 AM EST) Sodium 139 133 - 145 mmol/L LAB CHEMISTRY METHOD 04/10/2024 8:03 AM [facility] Potassium 3.8 3.5 - 5.5 mmol/L LAB CHEMISTRY METHOD 04/10/2024 8:03 AM [facility] Chloride 104 96 - 110 mmol/L LAB CHEMISTRY METHOD 04/10/2024 8:03 AM [facility] CO2 31 21 - 32 mmol/L LAB CHEMISTRY METHOD 04/10/2024 8:03 AM [facility] Anion Gap 4 3 - 11 LAB CHEMISTRY METHOD 04/10/2024 8:03 AM [facility] Glucose 123(H) 70 - 100 mg/dL LAB CHEMISTRY METHOD 04/10/2024 8:03 AM [facility] BUN 11 5 - 25 mg/dL LAB CHEMISTRY METHOD 04/10/2024 8:03 AM [facility] Creatinine 0.44(L) 0.50 - 1.10 mg/dL LAB CHEMISTRY METHOD 04/10/2024 8:03 AM [facility] eGFR 96 >=60 mL/min/1. 73m2 LAB CHEMISTRY METHOD 04/10/2024 8:03 AM [facility] Comment:Calculation based on the??Chronic Kidney Disease Epidemiology Collaboration (CKD-EPI) equation refit??without adjustment for race. BUN/Creatinine Ratio 25.0 LAB CHEMISTRY METHOD 04/10/2024 8:03 AM [facility] Calcium 8.1(L) 8.5 - 10.5 mg/dL LAB CHEMISTRY METHOD 04/10/2024 8:03 AM [facility] Blood Venous blood specimen / Unknown Venipuncture / Unknown 04/10/2024 5:20 AM EST 04/10/2024 7:34 AM EST us Mookie Donovan MD LAB BLOOD ORDERABLES Final Result [facility] [address] [place] [address], * (ABNORMAL) Complete blood count (04/10/2024 5:20 AM EST) WBC 10.3 4.8 - 10.8 K/mcL LAB HEMETOLOGY METHOD 04/10/2024 7:58 AM [facility] RBC 3.40(L) 3.80 - 4.80 M/mcL LAB HEMETOLOGY METHOD 04/10/2024 7:58 AM [facility] Hemoglobin 9.2(L) 11.5 - 16.0 g/dL LAB HEMETOLOGY METHOD 04/10/2024 7:58 AM [facility] Hematocrit 30.2(L) 35.0 - 47.0 % LAB HEMETOLOGY METHOD 04/10/2024 7:58 AM [facility] MCV 89.9 79.0 - 98.0 FL LAB HEMETOLOGY METHOD 04/10/2024 7:58 AM [facility] MCH 27.4 27.0 - 32.0 pcg LAB HEMETOLOGY METHOD 04/10/2024 7:58 AM [facility] MCHC 30.5(L) 32.0 - 37.0 g/dL LAB HEMETOLOGY METHOD 04/10/2024 7:58 AM EST [facility] RDW 16.9(H) 11.0 - 15.0 % LAB HEMETOLOGY METHOD 04/10/2024 7:58 AM EST [facility] Platelets 330 130 - 400 K/mcL LAB HEMETOLOGY METHOD 04/10/2024 7:58 AM EST [facility] MPV 10.9 7.0 - 11.0 FL LAB HEMETOLOGY METHOD 04/10/2024 7:58 AM EST [facility] NRBC 0.0 <1.0 % LAB HEMETOLOGY METHOD 04/10/2024 7:58 AM EST [facility] NRBC Absolute 0.00 <0.10 K/mcL LAB HEMETOLOGY METHOD 04/10/2024 7:58 AM [facility] Blood Venous blood specimen / Unknown Venipuncture / Unknown 04/10/2024 5:20 AM EST 04/10/2024 7:34 AM EST Mookie Donovan MD LAB BLOOD ORDERABLES Final Result [facility] [address] [place] [address], documented in this encounter Visit Diagnoses Diagnosis Anemia, unspecified documented in this encounter Additional Health Concerns Infection Onset Date Last Indicated Resolved Time ESBL 04/25/2024 04/25/2024 documented as of this encounter Care Teams Tooth Clerk Relationship Specialty Start Date End Date Melissa Shannon MD [address] [place] [address] PCP - General Internal Medicine 04/02/13 documented as of this encounter
--- OUTSIDE RECORDS SUMMARY | 2024-07-26 06:23 | XMS_ITS | Encounter Summary ---
Author Organization Jessi [facility] [place] [address] Care Team Providers Care Geological E Logger Name Role Phone Melissa Shannon MD Primary Care Provider [phone] Encounter Details Date Type Department Care Team (Late st Contact Info) Description 04/26/2024 Lab Requisition [facility] - Main Lab 299 [facility] [place] [phone] Mookie Donovan MD [address] [place] [address] Anemia, unspecified; Type 2 diabetes mellitus without [...] Description 09/25/2024 3:30 PM EDT Ancillary Procedure [facility] Cardiology [facility] [address] [phone] 01/09/2025 10:20 AM EDT Office Visit [facility] Cardiology [facility] [address] [phone] Awias Hylton MD [address] [address] documented as of this encounter Procedures Procedure [...] LAB CHEMISTRY METHOD 04/26/2024 8:47 AM EST [facility] Blood Venous blood specimen / Unknown Venipuncture / Unknown 04/26/2024 6:34 AM EST 04/26/2024 7:53 AM EST us Mookie Donovan MD LAB BLOOD ORDERABLES Final Result [facility] [address] [place] [address], * Thyroxine free (04/26/2024 6:34 AM EST) Pathologist [facility] Free T4 1.25 0.70 - 1.80 ng/dL LAB CHEMISTRY METHOD 04/26/2024 8:46 AM EST [facility] Blood Venous blood specimen / Unknown Venipuncture / Unknown 04/26/2024 6:34 AM EST 04/26/2024 7:53 AM EST us Mookie Donovan MD LAB BLOOD ORDERABLES Final Result Performing Organization Address City/[facility]/ZIP Co de Phone Number [facility] [address] [place] [address], [place] [phone] * (ABNORMAL) Thyroid stimulating hormone (04/26/2024 6:34 AM EST) [facility] TSH 6.69(H) 0.40 - 4.00 mcIU/mL LAB CHEMISTRY METHOD 04/26/2024 8:48 AM EST [facility] Blood Venous blood specimen / Unknown Venipuncture / Unknown 04/26/2024 6:34 AM EST 04/26/2024 7:53 AM EST us Mookie Donovan MD LAB BLOOD ORDERABLES Final Result Performing Organization Address [facility] Co de Phone Number [facility] [address] [place] [address], [place] [phone] * (ABNORMAL) Basic metabolic panel (04/26/2024 6:34 AM EST) [facility] Sodium 137 133 - 145 mmol/L LAB CHEMISTRY METHOD 04/26/2024 8:38 AM EST [facility] Potassium 3.7 3.5 - 5.5 mmol/L LAB CHEMISTRY METHOD 04/26/2024 8:38 AM EST [facility] Chloride 101 96 - 110 mmol/L LAB CHEMISTRY METHOD 04/26/2024 8:38 AM EST [facility] CO2 34(H) 21 - 32 mmol/L LAB CHEMISTRY METHOD 04/26/2024 8:38 AM [facility] Anion Gap 2(L) 3 - 11 LAB CHEMISTRY METHOD 04/26/2024 8:38 AM [facility] Glucose 133(H) 70 - 100 mg/dL LAB CHEMISTRY METHOD 04/26/2024 8:38 AM [facility] BUN 15 5 - 25 mg/dL LAB CHEMISTRY METHOD 04/26/2024 8:38 AM [facility] Creatinine 0.60 0.50 - 1.10 mg/dL LAB CHEMISTRY METHOD 04/26/2024 8:38 AM [facility] eGFR 89 >=60 mL/min/1. 73m2 LAB CHEMISTRY METHOD 04/26/2024 8:38 AM [facility] Comment:Calculation based on the??Chronic Kidney Disease Epidemiology Collaboration (CKD-EPI) equation refit??without adjustment for race. BUN/Creatinine Ratio 25.0 LAB CHEMISTRY METHOD 04/26/2024 8:38 AM [facility] Calcium 8.7 8.5 - 10.5 mg/dL LAB CHEMISTRY METHOD 04/26/2024 8:38 AM [facility] Blood Venous blood specimen / Unknown Venipuncture / Unknown 04/26/2024 6:34 AM EST 04/26/2024 7:53 AM EST Mookie Donovan MD LAB BLOOD ORDERABLES Final Result [facility] [address] [place] [address], * (ABNORMAL) Complete blood count (04/26/2024 6:34 AM EST) WBC 10.3 4.8 - 10.8 K/mcL LAB HEMETOLOGY METHOD 04/26/2024 8:13 AM [facility] RBC 3.60(L) 3.80 - 4.80 M/mcL LAB HEMETOLOGY METHOD 04/26/2024 8:13 AM [facility] Hemoglobin 9.7(L) 11.5 - 16.0 g/dL LAB HEMETOLOGY METHOD 04/26/2024 8:13 AM [facility] Hematocrit 31.6(L) 35.0 - 47.0 % LAB HEMETOLOGY METHOD 04/26/2024 8:13 AM [facility] MCV 88.3 79.0 - 98.0 FL LAB HEMETOLOGY METHOD 04/26/2024 8:13 AM [facility] MCH 27.1 27.0 - 32.0 pcg LAB HEMETOLOGY METHOD 04/26/2024 8:13 AM [facility] MCHC 30.7(L) 32.0 - 37.0 g/dL LAB HEMETOLOGY METHOD 04/26/2024 8:13 AM [facility] RDW 17.0(H) 11.0 - 15.0 % LAB HEMETOLOGY METHOD 04/26/2024 8:13 AM [facility] Platelets 215 130 - 400 K/mcL LAB HEMETOLOGY METHOD 04/26/2024 8:13 AM [facility] MPV 10.8 7.0 - 11.0 FL LAB HEMETOLOGY METHOD 04/26/2024 8:13 AM [facility] NRBC 0.0 <1.0 % LAB HEMETOLOGY METHOD 04/26/2024 8:13 AM [facility] NRBC Absolute 0.00 <0.10 K/mcL LAB HEMETOLOGY METHOD 04/26/2024 8:13 AM [facility] Blood Venous blood specimen / Unknown Venipuncture / Unknown 04/26/2024 6:34 AM EST 04/26/2024 7:53 AM EST Mookie Donovan MD LAB BLOOD ORDERABLES Final Result [facility] [address] [place] [address], documented in this encounter Visit Diagnoses Diagnosis Anemia, unspecified Type 2 diabetes mellitus without complications documented in this encounter Additional Health Concerns Infection Onset Date Last Indicated Resolved Time ESBL 04/25/2024 04/25/2024 documented as of this encounter Care Teams Geological E Logger Relationship Specialty Start Date End Date Melissa Shannon MD [address] [place] [address] PCP - General Internal Medicine 04/02/13 documented as of this encounter
--- OUTSIDE RECORDS SUMMARY | 2024-07-26 06:23 | XMS_ITS | Encounter Summary ---
Author Organization Jessi [facility] [place] [address] Care Team Providers Care Extended Day Teacher Name Role Phone Melissa Shannon MD Primary Care Provider Encounter Details Date Type Department Care Team (Late st Contact Info) Description 04/16/[address] [facility] - Main Lab 299 [facility] [employer] [place] [phone] Mookie Donovan MD [address] [place] [address] Anemia, unspecified Social History Tobacco Use Types [...] Description 09/25/2024 3:30 PM EDT Ancillary Procedure [facility] Cardiology [facility] [address] [phone] 01/09/2025 10:20 AM EDT Office Visit [facility] Cardiology [facility] [address] [phone] Awais Hylton MD [address] [place] [address] documented as of this encounter Procedures Procedure Name Priority Date/Time Associated Diagnosis Comments COMPLETE BLOOD COUNT Routine 04/17/2024 7:30 AM EST Anemia, unspecified BASIC METABOLIC PANEL Routine 04/17/2024 7:30 AM EST Anemia, unspecified documented in this encounter Results * (ABNORMAL) Basic metabolic panel (04/17/2024 7:30 AM EST) Sodium 133 133 - 145 mmol/L LAB CHEMISTRY METHOD 04/17/2024 10:43 AM [facility] Potassium 4.1 3.5 - 5.5 mmol/L LAB CHEMISTRY METHOD 04/17/2024 10:43 AM [facility] Chloride 95(L) 96 - 110 mmol/L LAB CHEMISTRY METHOD 04/17/2024 10:43 AM [facility] CO2 28 21 - 32 mmol/L LAB CHEMISTRY METHOD 04/17/2024 10:43 AM [facility] Anion Gap 10 3 - 11 LAB CHEMISTRY METHOD 04/17/2024 10:43 AM [facility] Glucose 126(H) 70 - 100 mg/dL LAB CHEMISTRY METHOD 04/17/2024 10:43 AM [facility] BUN 10 5 - 25 mg/dL LAB CHEMISTRY METHOD 04/17/2024 10:43 AM [facility] Creatinine 0.59 0.50 - 1.10 mg/dL LAB CHEMISTRY METHOD 04/17/2024 10:43 AM [facility] eGFR 90 >=60 mL/min/1. 73m2 LAB CHEMISTRY METHOD 04/17/2024 10:43 AM [facility] Comment:Calculation based on the??Chronic Kidney Disease Epidemiology Collaboration (CKD-EPI) equation refit??without adjustment for race. BUN/Creatinine Ratio 16.9 LAB CHEMISTRY METHOD 04/17/2024 10:43 AM [facility] Calcium 8.8 8.5 - 10.5 mg/dL LAB CHEMISTRY METHOD 04/17/2024 10:43 AM [facility] Blood Venous blood specimen / Unknown Venipuncture / Unknown 04/17/2024 7:30 AM EST 04/17/2024 10:07 AM EST us Mookie Donovan MD LAB BLOOD ORDERABLES Final Result [facility] [address] [place] [address], * (ABNORMAL) Complete blood count (04/17/2024 7:30 AM EST) WBC 10.2 4.8 - 10.8 K/mcL LAB HEMETOLOGY METHOD 04/17/2024 10:33 AM [facility] RBC 3.70(L) 3.80 - 4.80 M/mcL LAB HEMETOLOGY METHOD 04/17/2024 10:33 AM [facility] Hemoglobin 10.0(L) 11.5 - 16.0 g/dL LAB HEMETOLOGY METHOD 04/17/2024 10:33 AM [facility] Hematocrit 32.0(L) 35.0 - 47.0 % LAB HEMETOLOGY METHOD 04/17/2024 10:33 AM [facility] MCV 87.2 79.0 - 98.0 FL LAB HEMETOLOGY METHOD 04/17/2024 10:33 AM [facility] MCH 27.2 27.0 - 32.0 pcg LAB HEMETOLOGY METHOD 04/17/2024 10:33 AM [facility] MCHC 31.3(L) 32.0 - 37.0 g/dL LAB HEMETOLOGY METHOD 04/17/2024 10:33 AM EST [facility] RDW 16.4(H) 11.0 - 15.0 % LAB HEMETOLOGY METHOD 04/17/2024 10:33 AM EST [facility] Platelets 191 130 - 400 K/mcL LAB HEMETOLOGY METHOD 04/17/2024 10:33 AM EST [facility] MPV 10.9 7.0 - 11.0 FL LAB HEMETOLOGY METHOD 04/17/2024 10:33 AM EST [facility] NRBC 0.0 <1.0 % LAB HEMETOLOGY METHOD 04/17/2024 10:33 AM EST [facility] NRBC Absolute 0.00 <0.10 K/mcL LAB HEMETOLOGY METHOD 04/17/2024 10:33 AM [facility] Blood Venous blood specimen / Unknown Venipuncture / Unknown 04/17/2024 7:30 AM EST 04/17/2024 10:07 AM EST Mookie Donovan MD LAB BLOOD ORDERABLES Final Result [facility] [address] [place] [address], documented in this encounter Visit Diagnoses Diagnosis Anemia, unspecified documented in this encounter Additional Health Concerns Infection Onset Date Last Indicated Resolved Time ESBL 04/25/2024 04/25/2024 documented as of this encounter Care Teams Extended Day Teacher Relationship Specialty Start Date End Date Melissa Shannon MD [address] [place] [address] PCP - General Internal Medicine 04/02/13 documented as of this encounter
--- OUTSIDE RECORDS SUMMARY | 2024-07-26 06:23 | XMS_ITS | Encounter Summary ---
Author Organization Jessi [facility] [place] [address] Care Team Providers Care Photographer Motion Picture Name Role Phone Melissa Shannon MD Primary Care Provider Encounter Details Date Type Department Care Team (Late st Contact Info) Description 04/02/2024 Lab Requisition [facility] - Main Lab 299 [facility] [place] [phone] Mookie Donovan MD [address] [place] [address] Anemia, unspecified Social History Tobacco Use Types [...] Description 09/25/2024 3:30 PM EDT Ancillary Procedure [facility] Cardiology [facility] [address] [phone] 01/09/2025 10:20 AM EDT Office Visit [facility] Cardiology [facility] [address] [phone] Awais Hylton MD [address] [address] documented as of this encounter Procedures Procedure [...] ORDERABLES Final Result [facility] [address] [place] [address], * (ABNORMAL) Complete blood count (04/03/2024 8:41 [...] Final Result [facility] [address] [place] [address], documented in this encounter Visit Diagnoses Diagnosis Anemia, unspecified documented in this encounter Additional Health Concerns Infection Onset Date Last Indicated Resolved Time ESBL 04/25/2024 04/25/2024 documented as of this encounter Care Teams Photographer Motion Picture Relationship Specialty Start Date End Date Melissa Shannon MD [address] [place] [address] PCP - General Internal Medicine 04/02/13 documented as of this encounter
--- OUTSIDE RECORDS SUMMARY | 2024-07-26 06:23 | XMS_ITS | Encounter Summary ---
Author Organization Jessi [facility] [place] [address] Care Team Providers Care Care Professionals Name Role Phone Melissa Shannon MD Primary Care Provider Encounter Details Date Type Department Care Team (Late Contact Info) Description 04/06/[address] [facility] - Main Lab 299 [facility] [place] [phone] Mookie Donovan MD [address] [place] [address] Unspecified dementia, unspecified severity, without behavioral disturbance, [...] Ancillary Procedure [facility] Cardiology [facility] [address] [place] [address] 01/09/2025 10:20 AM EDT Office Visit [facility] Cardiology [facility] [address] [phone] Awais Hylton MD [address] [address] documented as of this encounter Procedures Procedure [...] MICROBIOLOGY - GENERAL ORDERABLES Final Result [facility] [address] [place] [address], documented in this encounter Visit Diagnoses Diagnosis Unspecified dementia, unspecified severity, without behavioral disturbance, psychotic disturbance, mood disturbance, and anxiety (CMS/HCC) Unspecified infectious disease documented in this encounter Additional Health Concerns Infection Onset Date Last Indicated Resolved Time ESBL 04/25/2024 04/25/2024 documented as of this encounter Care Teams Care Professionals Relationship Specialty Start Date End Date Melissa Shannon MD [address] [place] [address] PCP - General Internal Medicine 04/02/13 documented as of this encounter
--- OUTSIDE RECORDS SUMMARY | 2024-07-26 06:23 | XMS_ITS | Encounter Summary ---
Author Organization Jessi [facility] [place] [address] Care Team Providers Care Lead Material Handler Name Role Phone Melissa Shannon MD Primary Care Provider Encounter Details Date Type Department Care Team (Late st Contact Info) Description 04/26/2024 Lab Requisition [facility] - Main Lab 299 [facility] [employer] [place] [phone] Mookie Donovan MD [address] [place] [address] Dysuria Social History Tobacco Use Types Packs/Day [...] Description 09/25/2024 3:30 PM EDT Ancillary Procedure [facility]iology [facility] [address] [address] 01/09/2025 10:20 AM EDT Office Visit [facility] Cardiology [facility] [address] [phone] Awais Hylton MD [address] [place] [address] documented as of this encounter Procedures Procedure Name Priority Date/Time Associated Diagnosis Comments URINALYSIS WITH REFLEX MICROSCOPIC Routine 04/25/2024 1:30 PM EST Dysuria URINALYSIS WITH REFLEX MICROSCOPIC Routine 04/25/2024 1:30 PM EST Dysuria CULTURE URINE Routine 04/25/2024 1:30 PM EST Dysuria documented in this encounter Results * (ABNORMAL) Urinalysis with reflex microscopic (04/25/2024 1:30 PM EST) Specific [place] Urine 1.028 1.003 - 1.030 LAB URINALYSIS [...] Donovan MD LAB URINE ORDERABLES Final Result [facility] [address] [place] [address], * (ABNORMAL) Culture urine (04/25/2024 1:30 PM EST) Culture, Urine >100,000 CFU/mL Escherichia coli ESBL(A) [place] 04/30/2024 9:38 AM [facility] Comment: THIS ORGANISM [...] pneumoniae ESBL(A) [place] 04/30/2024 9:38 AM EST [facility] Comment: THIS ORGANISM IS [...] PM EST 04/26/2024 8:19 AM EST Narrative [facility] - 04/30/2024 9:38 AM EST Additional [...] GENERAL ORDERABLES Final Result Performing Organization Address City/State/[facility] Co de Phone Number [facility] [address] [place] [address], documented in this encounter Visit Diagnoses Diagnosis Dysuria documented in this encounter Additional Health Concerns Infection Onset Date Last Indicated Resolved Time ESBL 04/25/2024 04/25/2024 documented as of this encounter Care Teams Lead Material Handler Relationship Specialty Start Date End Date Melissa Shannon MD [address] [place] [address] PCP - General Internal Medicine 04/02/13 documented as of this encounter
--- OUTSIDE RECORDS SUMMARY | 2024-07-26 06:24 | XMS_ITS | Encounter Summary ---
Author Organization Jessi [facility] [place] [address] Care Team Providers Care Geographic Information Systems Director Name Role Phone Melissa Shannon MD Primary Care Provider Encounter Details Date Type Department Care Team (Late st Contact Info) Description 03/29/2024 Lab Requisition [facility] - Main Lab 299 [facility] [place] [phone] Mookie Donovan MD [address] [place] [address] Unspecified atrial fibrillation (CMS/HCC); Type 2 diabetes [...] Description 09/25/2024 3:30 PM EDT Ancillary Procedure [facility] [address] 300 [facility] [place] [address] 01/09/2025 10:20 AM EDT Office Visit [facility] Cardiology [facility] [address] [phone] Awasi Hylton MD [address] [address] documented as of this encounter Procedures Procedure [...] Hold for add-ons. 03/29/2024 11:01 AM EST [facility] Comment:Auto resulted. Blood Venous blood specimen / Unknown 03/29/2024 6:51 AM EST 03/29/2024 9:08 AM EST us Mookie Donovan MD LAB BLOOD ORDERABLES Final Result [facility]) [facility] [address] [place] [address], * (ABNORMAL) CBC auto differential (03/29/2024 6:51 AM EST) [facility] WBC 16.1(H) 4.8 - 10.8 K/mcL LAB HEMETOLOGY METHOD 03/29/2024 9:23 AM [facility] RBC 3.20(L) 3.80 - 4.80 M/mcL LAB HEMETOLOGY METHOD 03/29/2024 9:23 AM [facility] Hemoglobin 9.1(L) 11.5 - 16.0 g/dL LAB HEMETOLOGY METHOD 03/29/2024 9:23 AM [facility] Hematocrit 28.3(L) 35.0 - 47.0 % LAB HEMETOLOGY METHOD 03/29/2024 9:23 AM [facility] MCV 88.2 79.0 - 98.0 FL LAB HEMETOLOGY METHOD 03/29/2024 9:23 AM [facility] MCH 28.3 27.0 - 32.0 pcg LAB HEMETOLOGY METHOD 03/29/2024 9:23 AM [facility] MCHC 32.2 32.0 - 37.0 g/dL LAB HEMETOLOGY METHOD 03/29/2024 9:23 AM [facility] RDW 17.6(H) 11.0 - 15.0 % LAB HEMETOLOGY METHOD 03/29/2024 9:23 AM [facility] Platelets 482(H) 130 - 400 K/mcL LAB HEMETOLOGY METHOD 03/29/2024 9:23 AM [facility] MPV 9.2 7.0 - 11.0 FL LAB HEMETOLOGY METHOD 03/29/2024 9:23 AM [facility] NRBC 0.0 <1.0 % LAB HEMETOLOGY METHOD 03/29/2024 9:23 AM [facility] NRBC Absolute 0.00 <0.10 K/mcL LAB HEMETOLOGY METHOD 03/29/2024 9:23 AM [facility] Neutrophils Relative 82.2 % LAB HEMETOLOGY METHOD 03/29/2024 9:23 AM [facility] Lymphocytes Relative 8.3 % LAB HEMETOLOGY METHOD 03/29/2024 9:23 AM [facility] Monocytes Relative 7.4 % LAB HEMETOLOGY METHOD 03/29/2024 9:23 AM [facility] Eosinophils Relative 0.3 % LAB HEMETOLOGY METHOD 03/29/2024 9:23 AM [facility] Basophils Relative 0.2 % LAB HEMETOLOGY METHOD 03/29/2024 9:23 AM [facility] Immature Granulocytes Relative 1.6 % LAB HEMETOLOGY METHOD 03/29/2024 9:23 AM [facility] Neutrophils Absolute 13.23(H) 1.50 - 7.00 K/mcL LAB HEMETOLOGY METHOD 03/29/2024 9:23 AM [facility] Lymphocytes Absolute 1.33 1.00 - 5.00 K/mcL LAB HEMETOLOGY METHOD 03/29/2024 9:23 AM [facility] Monocytes Absolute 1.19(H) 0.20 - 1.00 K/mcL LAB HEMETOLOGY METHOD 03/29/2024 9:23 AM [facility] Eosinophils Absolute 0.05 0.00 - 0.50 K/mcL LAB HEMETOLOGY METHOD 03/29/2024 9:23 AM [facility] Basophils Absolute 0.03 0.00 - 0.20 K/mcL LAB HEMETOLOGY METHOD 03/29/2024 9:23 AM [facility] Immature Granulocytes Absolute 0.25(H) 0.00 - 0.03 K/mcL LAB HEMETOLOGY METHOD 03/29/2024 9:23 AM EST [facility] Blood Venous blood specimen / Unknown Venipuncture / Unknown 03/29/2024 6:51 AM EST 03/29/2024 8:51 AM EST us Mookie Donovan MD LAB BLOOD ORDERABLES Final Result Performing Organization Address City/[facility]/ZIP Co de Phone Number [facility] [address] [place] [address], [place] [phone] * Hemoglobin A1c (03/29/2024 6:51 AM EST) [facility] Hemoglobin A1C 6.1 <6.5 % LAB CHEMISTRY METHOD 03/29/2024 11:40 AM [facility] Mean Bld Glu Estim. 128 mg/dL LAB CHEMISTRY METHOD 03/29/2024 11:40 AM [facility] Blood Venous blood specimen / Unknown Venipuncture / Unknown 03/29/2024 6:51 AM EST 03/29/2024 8:51 AM EST us Mookie Donovan MD LAB BLOOD ORDERABLES Final Result Performing Organization Address [facility]/ZIP Co de Phone Number [facility] [address] [place] [address], [place] [phone] * (ABNORMAL) Comprehensive metabolic panel (03/29/2024 6:51 AM EST) [facility] Sodium 141 133 - 145 mmol/L LAB CHEMISTRY METHOD 03/29/2024 9:50 AM EST [facility] Potassium 3.0(L) 3.5 - 5.5 mmol/L LAB CHEMISTRY METHOD 03/29/2024 9:50 AM [facility] Chloride 107 96 - 110 mmol/L LAB CHEMISTRY METHOD 03/29/2024 9:50 AM EST [facility] CO2 24 21 - 32 mmol/L LAB CHEMISTRY METHOD 03/29/2024 9:50 AM [facility] Anion Gap 10 3 - 11 LAB CHEMISTRY METHOD 03/29/2024 9:50 AM [facility] Glucose 134(H) 70 - 100 mg/dL LAB CHEMISTRY METHOD 03/29/2024 9:50 AM [facility] BUN 13 5 - 25 mg/dL LAB CHEMISTRY METHOD 03/29/2024 9:50 AM [facility] Creatinine 0.46(L) 0.50 - 1.10 mg/dL LAB CHEMISTRY METHOD 03/29/2024 9:50 AM [facility] eGFR 95 >=60 mL/min/1. 73m2 LAB CHEMISTRY METHOD 03/29/2024 9:50 AM [facility] Comment:Calculation based on the??Chronic Kidney Disease Epidemiology Collaboration (CKD-EPI) equation refit??without adjustment for race. BUN/Creatinine Ratio 28.3 LAB CHEMISTRY METHOD 03/29/2024 9:50 AM [facility] Calcium 8.4(L) 8.5 - 10.5 mg/dL LAB CHEMISTRY METHOD 03/29/2024 9:50 AM [facility] AST (SGOT) 17 10 - 42 unit/L LAB CHEMISTRY METHOD 03/29/2024 9:50 AM [facility] ALT (SGPT) 13 10 - 60 unit/L LAB CHEMISTRY METHOD 03/29/2024 9:50 AM [facility] Alkaline Phosphatase 161(H) 42 - 121 unit/L LAB CHEMISTRY METHOD 03/29/2024 9:50 AM [facility] Total Protein 5.5(L) 6.0 - 8.0 g/dL LAB CHEMISTRY METHOD 03/29/2024 9:50 AM [facility] Albumin 2.0(L) 3.2 - 5.0 g/dL LAB CHEMISTRY METHOD 03/29/2024 9:50 AM [facility] Total Bilirubin 0.4 0.0 - 1.4 mg/dL LAB CHEMISTRY METHOD 03/29/2024 9:50 AM EST [facility] Blood Venous blood specimen / Unknown Venipuncture / Unknown 03/29/2024 6:51 AM EST 03/29/2024 8:51 AM EST us Mookie Donovan MD LAB BLOOD ORDERABLES Final Result [facility] [address] [place] [address], documented in this encounter Visit Diagnoses Diagnosis Unspecified atrial fibrillation (CMS/HCC) Type 2 diabetes mellitus without complications Anemia, unspecified documented in this encounter Additional Health Concerns Infection Onset Date Last Indicated Resolved Time ESBL 04/25/2024 04/25/2024 documented as of this encounter Care Teams Geographic Information Systems Director Relationship Specialty Start Date End Date Melissa Shannon MD [address] [place] [address] PCP - General Internal Medicine 04/02/13 documented as of this encounter
== END 2024-07-26 06:21 | disposition home or self-care (01) ==
LOC: HO.LHD 06:20
PROVIDERS: Visit Provider Internal Medicine
DX: Z13.89 Encounter for screening for other disorder (principal)

== ENCOUNTER 2024-08-15 06:30 | Outpatient (REF) | payer MEDICARE, MEDICAID, SELFPAY ==
--- OUTSIDE RECORDS SUMMARY | 2024-08-15 10:59 | XMS_ITS | Encounter Summary ---
[facility] [place] [address] Care Team Providers Care Production Hardener Name Role Phone Melissa Shannon MD Primary Care Provider Encounter Details Date Type Department Care Team (Late Contact Info) Description 04/06/[address] [facility] - Main Lab 299 [facility] [employer] [place] [address] Mookie Donovan MD [address] [place] [address] Unspecified dementia, unspecified severity, without behavioral disturbance, psychotic disturbance, mood disturbance, and anxiety (CMS/HCC V24, CMS/HCC V28); Unspecified infectious disease Social History Tobacco Use [...] Encounters Date Type Department Care Team (Late Contact Info) Description 09/25/2024 3:30 PM EDT Ancillary Procedure [facility] [address] [facility] [address] [place] [phone] 01/09/2025 10:20 AM EDT Office Visit [facility] [address] [phone] Awais Hylton MD [address] [address] documented as of this encounter Procedures Procedure [...] LAB MICROBIOLOGY - GENERAL ORDERABLES Final Result [facility] 299 [place] [address], documented in this encounter Visit Diagnoses Diagnosis Unspecified dementia, unspecified severity, without behavioral disturbance, psychotic disturbance, mood disturbance, and anxiety (CMS/HCC V24, CMS/HCC V28) Unspecified infectious disease documented in this encounter Additional Health Concerns Infection Onset Date Last Indicated Resolved Time ESBL 04/25/2024 04/25/2024 documented as of this encounter Care Teams Production Hardener Relationship Specialty Start Date End Date Melissa Shannon MD [address] [place] [address] PCP - General Internal Medicine 04/02/13 documented as of this encounter
--- OUTSIDE RECORDS SUMMARY | 2024-08-15 10:59 | XMS_ITS | Encounter Summary ---
Author Organization Jessi [facility] [place] [address] Care Team Providers Care Information Operator Name Role Phone Melissa Shannon MD Primary Care Provider Encounter Details Date Type Department Care Team (Late st Contact Info) Description 04/26/2024 Lab Requisition [facility] - Main Lab 299 [facility] [place] [phone] Mookie Donovan MD [address] [place] [address] Dysuria Social History Tobacco Use Types Packs/Day [...] Description 09/25/2024 3:30 PM EDT Ancillary Procedure [facility] [address] [phone] 01/09/2025 10:20 AM EDT Office Visit [facility] [address] [phone] Awais Hylton MD [address] [place] [address] documented as of this encounter Procedures Procedure Name Priority Date/Time Associated Diagnosis Comments URINALYSIS WITH REFLEX MICROSCOPIC Routine 04/25/2024 1:30 PM EST Dysuria URINALYSIS WITH REFLEX MICROSCOPIC Routine 04/25/2024 1:30 PM EST Dysuria CULTURE URINE Routine 04/25/2024 1:30 PM EST Dysuria documented in this encounter Results * (ABNORMAL) Urinalysis with reflex microscopic (04/25/2024 1:30 PM EST) Specific [place] Urine 1.028 1.003 - 1.030 LAB URINALYSIS - AUTOMATED METHOD 04/26/2024 9:42 AM [facility] pH, Urine 5.5 5.0 - 8.0 pH LAB URINALYSIS - AUTOMATED METHOD 04/26/2024 9:42 AM [facility] Leukocytes, Urine Moderate(A) Negative LAB URINALYSIS - AUTOMATED METHOD 04/26/2024 9:42 AM [facility] Nitrite, Urine Negative Negative LAB URINALYSIS - AUTOMATED METHOD 04/26/2024 9:42 AM [facility] Protein, Urine 100(A) <=Trace mg/dL LAB URINALYSIS - AUTOMATED METHOD 04/26/2024 9:42 AM [facility] Glucose, Urine Negative Negative mg/dL LAB URINALYSIS - AUTOMATED METHOD 04/26/2024 9:42 AM [facility] Ketones, Urine Trace(A) Negative mg/dL LAB URINALYSIS - AUTOMATED METHOD 04/26/2024 9:42 AM [facility] Urobilinogen , Urine 1.0 0.2 - 1.0 mg/dL LAB URINALYSIS - AUTOMATED METHOD 04/26/2024 9:42 AM [facility] Bilirubin, Urine Negative Negative LAB URINALYSIS - AUTOMATED METHOD 04/26/2024 9:42 AM [facility] Blood, Urine Moderate(A) Negative LAB URINALYSIS - AUTOMATED METHOD 04/26/2024 9:42 AM [facility] RBC, Urine 7.4(H) 0 - 4 /HPF LAB URINALYSIS - AUTOMATED METHOD 04/26/2024 9:42 AM [facility] WBC, Urine 700.4(H) 0 - 4 /HPF LAB URINALYSIS - AUTOMATED METHOD 04/26/2024 9:42 AM [facility] Squamous Epithelial, Urine 48 0 - 60 /LPF LAB URINALYSIS - AUTOMATED METHOD 04/26/2024 9:42 AM [facility] Bacteria, Urine Many(A) Negative /HPF LAB URINALYSIS - AUTOMATED METHOD 04/26/2024 9:42 AM [facility] Hyaline Casts, Urine 1.0 0 - 3 /LPF LAB URINALYSIS - AUTOMATED METHOD 04/26/2024 9:42 AM [facility] Urine Urine specimen obtained by clean catch procedure / Unknown 04/25/2024 1:30 PM EST 04/26/2024 8:19 AM EST Mookie Donovan MD LAB URINE ORDERABLES Final Result [facility] [address] [place] [address], * (ABNORMAL) Culture urine (04/25/2024 1:30 PM EST) Culture, Urine >100,000 CFU/mL Escherichia coli ESBL(A) [facility] 04/30/2024 9:38 AM [facility] Comment: THIS ORGANISM IS [...] PM EST 04/26/2024 8:[address] [facility] - 04/30/2024 9:38 AM EST [...] GENERAL ORDERABLES Final Result Performing Organization Address City/State/[place] Co de Phone Number [facility] [address] [place] [address], documented in this encounter Visit Diagnoses Diagnosis Dysuria documented in this encounter Additional Health Concerns Infection Onset Date Last Indicated Resolved Time ESBL 04/25/2024 04/25/2024 documented as of this encounter Care Teams Information Operator Relationship Specialty Start Date End Date Melissa Shannon MD [address] [place] [address] PCP - General Internal Medicine 04/02/13 documented as of this encounter
--- OUTSIDE RECORDS SUMMARY | 2024-08-15 10:59 | XMS_ITS | Encounter Summary ---
Author Organization Jessi [facility] [place] [address] Care Team Providers Care Professor Of Communication Arts Name Role Phone Melissa Shannon MD Primary Care Provider [phone] Encounter Details Date Type Department Care Team (Late st Contact Info) Description 04/26/2024 Lab Requisition [facility] - Main Lab 299 [facility] [place] [phone] Mookie Donovan MD [address] [place] [address] Anemia, unspecified; Type 2 diabetes mellitus without complications (CMS/HCC V24, CMS/HCC V28) Social History Tobacco Use Types Packs/Day Years [...] Description 09/25/2024 3:30 PM EDT Ancillary Procedure [facility] Cardiology [facility] [address] [phone] 01/09/2025 10:20 AM EDT Office Visit [facility] Cardiology [facility] [address] [phone] Awais Hylton MD [address] [address] documented as of this encounter Procedures Procedure [...] ORDERABLES Final Result [facility] [address] [place] [address], * Thyroxine free (04/26/2024 6:34 AM EST) Free T4 1.25 0.70 - 1.80 ng/dL LAB CHEMISTRY METHOD 04/26/2024 8:46 AM EST [facility] Blood Venous blood specimen / Unknown Venipuncture / Unknown 04/26/2024 6:34 AM EST 04/26/2024 7:53 AM EST us Mookie Donovan MD LAB BLOOD ORDERABLES Final Result Performing Organization Address [facility]/ZIP Co de Phone Number [facility] [address] [place] [address], [place] [phone] * (ABNORMAL) Thyroid stimulating hormone (04/26/2024 6:34 AM EST) Pathologist [facility] TSH 6.69(H) 0.40 - 4.00 mcIU/mL LAB CHEMISTRY METHOD 04/26/2024 8:48 AM EST [facility] Blood Venous blood specimen / Unknown Venipuncture / Unknown 04/26/2024 6:34 AM EST 04/26/2024 7:53 AM EST us Mookie Donovan MD LAB BLOOD ORDERABLES Final Result Performing Organization Address [facility]/[place] Co de Phone Number [facility] [address] [place] [address], [place] [phone] * (ABNORMAL) Basic metabolic panel (04/26/2024 6:34 AM EST) Pathologist [facility] Sodium 137 133 - 145 mmol/L LAB CHEMISTRY METHOD 04/26/2024 8:38 AM EST [facility] Potassium 3.7 3.5 - 5.5 mmol/L LAB CHEMISTRY METHOD 04/26/2024 8:38 AM EST [facility] Chloride 101 96 - 110 mmol/L LAB CHEMISTRY METHOD 04/26/2024 8:38 AM EST [facility] CO2 34(H) 21 - 32 mmol/L LAB CHEMISTRY METHOD 04/26/2024 8:38 AM [facility] Anion Gap 2(L) 3 - 11 LAB CHEMISTRY METHOD 04/26/2024 8:38 AM [facility] Glucose 133(H) 70 - 100 mg/dL LAB CHEMISTRY METHOD 04/26/2024 8:38 AM [facility] BUN 15 5 - 25 mg/dL LAB CHEMISTRY METHOD 04/26/2024 8:38 AM [facility] Creatinine 0.60 0.50 - 1.10 mg/dL LAB CHEMISTRY METHOD 04/26/2024 8:38 AM [facility] eGFR 89 >=60 mL/min/1. 73m2 LAB CHEMISTRY METHOD 04/26/2024 8:38 AM [facility] Comment:Calculation based on the??Chronic Kidney Disease Epidemiology Collaboration (CKD-EPI) equation refit??without adjustment for race. BUN/Creatinine Ratio 25.0 LAB CHEMISTRY METHOD 04/26/2024 8:38 AM [facility] Calcium 8.7 8.5 - 10.5 mg/dL LAB CHEMISTRY METHOD 04/26/2024 8:38 AM [facility] Blood Venous blood specimen / Unknown Venipuncture / Unknown 04/26/2024 6:34 AM EST 04/26/2024 7:53 AM EST Mookie Donovan MD LAB BLOOD ORDERABLES Final Result [facility] [address] [place] [address], * (ABNORMAL) Complete blood count (04/26/2024 6:34 AM EST) WBC 10.3 4.8 - 10.8 K/mcL LAB HEMETOLOGY METHOD 04/26/2024 8:13 AM [facility] RBC 3.60(L) 3.80 - 4.80 M/mcL LAB HEMETOLOGY METHOD 04/26/2024 8:13 AM [facility] Hemoglobin 9.7(L) 11.5 - 16.0 g/dL LAB HEMETOLOGY METHOD 04/26/2024 8:13 AM [facility] Hematocrit 31.6(L) 35.0 - 47.0 % LAB HEMETOLOGY METHOD 04/26/2024 8:13 AM [facility] MCV 88.3 79.0 - 98.0 FL LAB HEMETOLOGY METHOD 04/26/2024 8:13 AM [facility] MCH 27.1 27.0 - 32.0 pcg LAB HEMETOLOGY METHOD 04/26/2024 8:13 AM [facility] MCHC 30.7(L) 32.0 - 37.0 g/dL LAB HEMETOLOGY METHOD 04/26/2024 8:13 AM [facility] RDW 17.0(H) 11.0 - 15.0 % LAB HEMETOLOGY METHOD 04/26/2024 8:13 AM [facility] Platelets 215 130 - 400 K/mcL LAB HEMETOLOGY METHOD 04/26/2024 8:13 AM [facility] MPV 10.8 7.0 - 11.0 FL LAB HEMETOLOGY METHOD 04/26/2024 8:13 AM [facility] NRBC 0.0 <1.0 % LAB HEMETOLOGY METHOD 04/26/2024 8:13 AM [facility] NRBC Absolute 0.00 <0.10 K/mcL LAB HEMETOLOGY METHOD 04/26/2024 8:13 AM [facility] Blood Venous blood specimen / Unknown Venipuncture / Unknown 04/26/2024 6:34 AM EST 04/26/2024 7:53 AM EST us Mookie Donovan MD LAB BLOOD ORDERABLES Final Result [facility] [address] [place] [address], documented in this encounter Visit Diagnoses Diagnosis Anemia, unspecified Type 2 diabetes mellitus without complications (CMS/[facility] V24, CMS/HCC V28) documented in this encounter Additional Health Concerns Infection Onset Date Last Indicated Resolved Time ESBL 04/25/2024 04/25/2024 documented as of this encounter Care Teams Professor Of Communication Arts Relationship Specialty Start Date End Date Melissa Shannon MD [address] [place] [address] PCP - General Internal Medicine 04/02/13 documented as of this encounter
--- OUTSIDE RECORDS SUMMARY | 2024-08-15 10:59 | XMS_ITS | Clinical Summary ---
Author Organization 300 [facility] Address [address] [place] [address] Phone Care Team Providers Care Basket Hand Weaver Name Role Phone Melissa Shannon MD Primary [...] mometasone (NASONEX) 50 mcg/actuation nasal spray 1 [place] by Nasal route at bedtime. Active montelukast [...] her to speak with her PCP and/your emergency medicine given her recent COVID infection as well [...] they are available to me. Aortic aneurysm ([facility] V24) 08/12/2020 Overview (03/08/2024): Last Assessment & Plan: [...] berenice, ARB and diuretic. Paroxysmal atrial fibrillation ([facility] V24, [facility] V28) 08/12/2020 Overview (03/08/2024): Last Assessment & Plan: The patient is in sinus rhythm in office today by exam and EKG. Historically, she has declined anticoagulation due to significant bleeding. Update Holter monitor and follow. Family History Medical History Relation Name Comments [...] Description 09/25/2024 3:30 PM EDT Ancillary Procedure [facility] Cardiology [facility] [address] [phone] 01/09/2025 10:20 AM EDT Office Visit [facility] [address] [phone] Awais Hylton MD [address] [address] Health Maintenance Due Date Last Done Comments Diabetes: Annual Foot Exam 1950 Diabetes: Annual Retina Eye Exam 1950 Pneumococcal Vaccine: 50+ Years (1 of 2 - PCV) 01/09/1960 RSV Immunization Adult Patients (1 - 1-dose 75+ series) 01/09/2016 Zoster [...] age to complete this topic Meningococcal B Vaccine Aged Out No l onger eligible based on patient's age to complete this topic RSV Immunization Patients Under 20 months Aged Out No longer eligible based on patient's age to complete this topic Varicella Vaccines Aged Out No longer eligible based on patient's age to complete this topic Procedures Procedure Name Priority Date/Time Associated Diagnosis Comments BASIC METABOLIC PANEL Routine 04/26/2024 6:34 AM EST Anemia, unspecified Type 2 diabetes mellitus without complications (CMS/HCC) HEMOGLOBIN A1C Routine 03/29/2024 6:51 AM EST Unspecified atrial fibrillation (CMS/HCC) Type 2 diabetes mellitus without complications (CMS/HCC) Anemia, unspecified from Last 3 Months or Most Recently Relevant to Health Maintenance Results * (ABNORMAL) Basic metabolic panel (04/26/2024 6:34 AM EST) Sodium 137 133 - 145 mmol/L LAB CHEMISTRY METHOD 04/26/2024 8:38 AM EST [facility] Potassium 3.7 3.5 - 5.5 mmol/L LAB CHEMISTRY METHOD 04/26/2024 8:38 AM EST [facility] Chloride 101 96 [...] LAB BLOOD ORDERABLES Final Result [facility] [address] [place] [address], * Hemoglobin A1c (03/29/2024 6:51 AM EST) Hemoglobin A1C 6.1 <6.5 % LAB CHEMISTRY METHOD 03/29/2024 11:40 AM EST [facility] Mean Bld Glu Estim. 128 mg/dL LAB CHEMISTRY METHOD 03/29/2024 11:40 AM EST [facility] Blood Venous blood specimen / Unknown Venipuncture / Unknown 03/29/2024 6:51 AM EST 03/29/2024 8:51 AM EST us Mookie Donovan MD LAB BLOOD ORDERABLES Final Result [facility] [address] [place] [address], from Last 3 Months or Most Recently Relevant to Health Maintenance Additional Health Concerns Infection Onset Date Last Indicated ESBL 04/25/2024 04/25/2024 Insurance MEDICAID - [place] MEDICARE Care Teams Basket Hand Weaver Relationship Specialty Start Date End Date Melissa Shannon MD [address] [place] [address] PCP - General Internal Medicine 04/02/13
--- OUTSIDE RECORDS SUMMARY | 2024-08-15 10:59 | XMS_ITS | Encounter Summary ---
Author Organization [facility] [place] [address] Care Team Providers Care Sole Stainer Name Role Phone Melissa Shannon MD Primary Care Provider Encounter Details Date Type Department Care Team (Late st Contact Info) Description 04/16/2024 Lab Requisition [facility] - Main Lab 299 [facility] [place] [place] [phone] Mookie Donovan MD [address] [place] [address] Anemia, unspecified Social History Tobacco Use Types [...] Description 09/25/2024 3:30 PM EDT Ancillary Procedure [facility] Cardiology [facility] [address] [phone] 01/09/2025 10:20 AM EDT Office Visit [facility] Cardiology [facility] [address] [phone] Awais Hylton MD [address] [place] [address] documented as of this encounter Procedures Procedure Name Priority Date/Time Associated Diagnosis Comments COMPLETE BLOOD COUNT Routine 04/17/2024 7:30 AM EST Anemia, unspecified BASIC METABOLIC PANEL Routine 04/17/2024 7:30 AM EST Anemia, unspecified documented in this encounter Results * (ABNORMAL) Basic metabolic panel (04/17/2024 7:30 AM EST) Sodium 133 133 - 145 mmol/L LAB CHEMISTRY METHOD 04/17/2024 10:43 AM [facility] Potassium 4.1 3.5 - 5.5 mmol/L LAB CHEMISTRY METHOD 04/17/2024 10:43 AM [facility] Chloride 95(L) 96 - 110 mmol/L LAB CHEMISTRY METHOD 04/17/2024 10:43 AM [facility] CO2 28 21 - 32 mmol/L LAB CHEMISTRY METHOD 04/17/2024 10:43 AM [facility] Anion Gap 10 3 - 11 LAB CHEMISTRY METHOD 04/17/2024 10:43 AM [facility] Glucose 126(H) 70 - 100 mg/dL LAB CHEMISTRY METHOD 04/17/2024 10:43 AM [facility] BUN 10 5 - 25 mg/dL LAB CHEMISTRY METHOD 04/17/2024 10:43 AM [facility] Creatinine 0.59 0.50 - 1.10 mg/dL LAB CHEMISTRY METHOD 04/17/2024 10:43 AM [facility] eGFR 90 >=60 mL/min/1. 73m2 LAB CHEMISTRY METHOD 04/17/2024 10:43 AM [facility] Comment:Calculation based on the??Chronic Kidney Disease Epidemiology Collaboration (CKD-EPI) equation refit??without adjustment for race. BUN/Creatinine Ratio 16.9 LAB CHEMISTRY METHOD 04/17/2024 10:43 AM [facility] Calcium 8.8 8.5 - 10.5 mg/dL LAB CHEMISTRY METHOD 04/17/2024 10:43 AM [facility] Blood Venous blood specimen / Unknown Venipuncture / Unknown 04/17/2024 7:30 AM EST 04/17/2024 10:07 AM EST us Mookie Donovan MD LAB BLOOD ORDERABLES Final Result [facility] [address] [place] [address], * (ABNORMAL) Complete blood count (04/17/2024 7:30 AM EST) WBC 10.2 4.8 - 10.8 K/mcL LAB HEMETOLOGY METHOD 04/17/2024 10:33 AM [facility] RBC 3.70(L) 3.80 - 4.80 M/mcL LAB HEMETOLOGY METHOD 04/17/2024 10:33 AM [facility] Hemoglobin 10.0(L) 11.5 - 16.0 g/dL LAB HEMETOLOGY METHOD 04/17/2024 10:33 AM [facility] Hematocrit 32.0(L) 35.0 - 47.0 % LAB HEMETOLOGY METHOD 04/17/2024 10:33 AM [facility] MCV 87.2 79.0 - 98.0 FL LAB HEMETOLOGY METHOD 04/17/2024 10:33 AM [facility] MCH 27.2 27.0 - 32.0 pcg LAB HEMETOLOGY METHOD 04/17/2024 10:33 AM [facility] MCHC 31.3(L) 32.0 - 37.0 [...] K/mcL LAB HEMETOLOGY METHOD 04/17/2024 10:33 AM [facility] Blood Venous blood specimen / Unknown Venipuncture / Unknown 04/17/2024 7:30 AM EST 04/17/2024 10:07 AM EST Mookie Donovan MD LAB BLOOD ORDERABLES Final Result [facility] [address] [place] [address], documented in this encounter Visit Diagnoses Diagnosis Anemia, unspecified documented in this encounter Additional Health Concerns Infection Onset Date Last Indicated Resolved Time ESBL 04/25/2024 04/25/2024 documented as of this encounter Care Teams Sole Stainer Relationship Specialty Start Date End Date Melissa Shannon MD [address] [place] [address] PCP - General Internal Medicine 04/02/13 documented as of this encounter
--- OUTSIDE RECORDS SUMMARY | 2024-08-15 10:59 | XMS_ITS | Encounter Summary ---
Author Organization [facility] [place] [address] Care Team Providers Care Television Tube Inspector Name Role Phone Melissa Shannon MD Primary Care Provider Encounter Details Date Type Department Care Team (Late st Contact Info) Description 03/29/2024 Lab Requisition [facility] - Main Lab 299 [facility] [place] [address] Mookie Donovan MD [address] [place] [address] Unspecified atrial fibrillation (CMS/HCC V24, CMS/HCC V28); Type 2 diabetes mellitus without complications (CMS/HCC V24, CMS/HCC V28); Anemia, unspecified Social History Tobacco Use Types [...] Description 09/25/2024 3:30 PM EDT Ancillary Procedure [facility] [address] [place] [phone] 01/09/2025 10:20 AM EDT Office Visit [facility] [address] [phone] Awais Hylton MD [address] [address] documented as of this encounter Procedures Procedure [...] Hold for add-ons. 03/29/2024 11:01 AM EST [facility] Comment:Auto resulted. Blood Venous blood specimen / Unknown 03/29/2024 6:51 AM EST 03/29/2024 9:08 AM EST us Mookie Donovan MD LAB BLOOD ORDERABLES Final Result [facility] [address] [place] [address], * (ABNORMAL) CBC auto differential (03/29/2024 6:51 AM EST) [facility] WBC 16.1(H) 4.8 - 10.8 [...] BLOOD ORDERABLES Final Result Performing Organization Address [facility]/ZIP Co de Phone Number [facility] [address] [place] [address], [place] [phone] * Hemoglobin A1c (03/29/2024 6:51 AM EST) Pathologist [facility] Hemoglobin A1C 6.1 <6.5 % LAB CHEMISTRY METHOD 03/29/2024 11:40 AM EST [facility] Mean Bld Glu Estim. 128 mg/dL LAB CHEMISTRY METHOD 03/29/2024 11:40 AM [facility] Blood Venous blood specimen / Unknown Venipuncture / Unknown 03/29/2024 6:51 AM EST 03/29/2024 8:51 AM EST us Mookie Donovan MD LAB BLOOD ORDERABLES Final Result Performing Organization Address [facility] de Phone Number [facility] [address] [place] [address], [place] [phone] * (ABNORMAL) Comprehensive metabolic panel (03/29/2024 6:51 AM EST) Pathologist [facility] Sodium 141 133 - 145 mmol/L LAB CHEMISTRY METHOD 03/29/2024 9:50 AM EST [facility] Potassium 3.0(L) 3.5 - 5.5 mmol/L LAB CHEMISTRY METHOD 03/29/2024 9:50 AM [facility] Chloride 107 96 - 110 [...] 9:50 AM EST [facility] Total Bilirubin 0.4 0.0 - 1.4 mg/dL LAB CHEMISTRY METHOD 03/29/2024 9:50 AM EST [facility] Blood Venous blood specimen / Unknown Venipuncture / Unknown 03/29/2024 6:51 AM EST 03/29/2024 8:51 AM EST us Mookie Donovan MD LAB BLOOD ORDERABLES Final Result [facility] [address] [place] [address], documented in this encounter Visit Diagnoses Diagnosis Unspecified atrial fibrillation ([facility] V24, [facility] V28) Type 2 diabetes mellitus without complications ([facility] V24, [facility] V28) Anemia, unspecified documented in this encounter Additional Health Concerns Infection Onset Date Last Indicated Resolved Time ESBL 04/25/2024 04/25/2024 documented as of this encounter Care Teams Television Tube Inspector Relationship Specialty Start Date End Date Melissa Shannon MD [address] [facility] [place] [address] PCP - General Internal Medicine 04/02/13 documented as of this encounter
--- OUTSIDE RECORDS SUMMARY | 2024-08-15 10:59 | XMS_ITS | Encounter Summary ---
Author Organization [facility] [place] [address] Care Team Providers Care Supervisor Painting Department Name Role Phone Melissa Shannon MD Primary Care Provider [phone] Encounter Details Date Type Department Care Team (Late st Contact Info) Description 04/02/2024 Lab Requisition [facility] - Main Lab 299 [facility] [employer] [place] [phone] Mookie Donovan MD [address] [place] [address] Anemia, unspecified Social History Tobacco Use Types [...] Description 09/25/2024 3:30 PM EDT Ancillary Procedure [facility] Cardiology [facility] [address] [phone] 01/09/2025 10:20 AM EDT Office Visit [facility] Cardiology [facility] [address] [phone] Awais Hylton MD [address] [address] documented as of this encounter Procedures Procedure Name Priority Date/Time Associated Diagnosis Comments MAGNESIUM Routine 04/03/2024 9:41 AM EST Anemia, unspecified COMPLETE BLOOD COUNT Routine 04/03/2024 8:41 AM EST Anemia, unspecified documented in this encounter Results * (ABNORMAL) Magnesium (04/03/2024 9:41 AM EST) Magnesium 1.5(L) 1.9 - 2.6 mg/dL LAB CHEMISTRY METHOD 04/03/2024 12:21 PM [facility] Blood Venous blood specimen / Unknown Venipuncture / Unknown 04/03/2024 9:41 AM EST 04/03/2024 10:44 AM EST us Mookie Donovan MD LAB BLOOD ORDERABLES Final Result [facility] [address] [place] [address], * (ABNORMAL) Complete blood count (04/03/2024 8:41 AM EST) WBC 12.7(H) 4.8 - 10.8 K/mcL LAB HEMETOLOGY METHOD 04/03/2024 11:05 AM [facility] RBC 3.30(L) 3.80 - 4.80 M/mcL LAB HEMETOLOGY METHOD 04/03/2024 11:05 AM [facility] Hemoglobin 9.8(L) 11.5 - 16.0 g/dL LAB HEMETOLOGY METHOD 04/03/2024 11:05 AM [facility] Hematocrit 29.3(L) 35.0 - 47.0 % LAB HEMETOLOGY METHOD 04/03/2024 11:05 AM [facility] MCV 88.5 79.0 - 98.0 FL LAB HEMETOLOGY METHOD 04/03/2024 11:05 AM [facility] MCH 29.6 27.0 - 32.0 pcg LAB HEMETOLOGY METHOD 04/03/2024 11:05 AM [facility] MCHC 33.4 32.0 - 37.0 g/dL LAB HEMETOLOGY METHOD 04/03/2024 11:05 AM [facility] RDW 17.3(H) 11.0 - 15.0 % LAB HEMETOLOGY METHOD 04/03/2024 11:05 AM [facility] Platelets 565(H) 130 - 400 K/mcL LAB HEMETOLOGY METHOD 04/03/2024 11:05 AM [facility] MPV 9.8 7.0 - 11.0 FL LAB HEMETOLOGY METHOD 04/03/2024 11:05 AM [facility] NRBC 0.0 <1.0 % LAB HEMETOLOGY METHOD 04/03/2024 11:05 AM [facility] NRBC Absolute 0.00 <0.10 K/mcL LAB HEMETOLOGY METHOD 04/03/2024 11:05 AM [facility] Blood Venous blood specimen / Unknown Venipuncture / Unknown 04/03/2024 8:41 AM EST 04/03/2024 10:46 AM EST us Mookie Donovan MD LAB BLOOD ORDERABLES Final Result [facility] [address] [place] [address], documented in this encounter Visit Diagnoses Diagnosis Anemia, unspecified documented in this encounter Additional Health Concerns Infection Onset Date Last Indicated Resolved Time ESBL 04/25/2024 04/25/2024 documented as of this encounter Care Teams Supervisor Painting Department Relationship Specialty Start Date End Date Melissa Shannon MD [address] [place] [address] PCP - General Internal Medicine 04/02/13 documented as of this encounter
--- OUTSIDE RECORDS SUMMARY | 2024-08-15 10:59 | XMS_ITS | Encounter Summary ---
Author Organization [facility]i [facility] [place] [address] Care Team Providers Care Mining Helper Name Role Phone Melissa Shannon MD Primary Care Provider Encounter Details Date Type Department Care Team (Late st Contact Info) Description 04/09/2024 Lab Requisition [facility] - Main Lab 299 [facility] [employer] [place] [phone] Mookie Donovan MD [address] [place] [address] Anemia, unspecified Social History Tobacco Use Types [...] Description 09/25/2024 3:30 PM EDT Ancillary Procedure [facility] Cardiology [facility] [address] [phone] 01/09/2025 10:20 AM EDT Office Visit [facility] Cardiology [facility] [address] [phone] Awais Hylton MD [address] [place] [address] documented as of this encounter Procedures Procedure Name Priority Date/Time Associated Diagnosis Comments COMPLETE BLOOD COUNT Routine 04/10/2024 5:20 AM EST Anemia, unspecified BASIC METABOLIC PANEL Routine 04/10/2024 5:20 AM EST Anemia, unspecified documented in this encounter Results * (ABNORMAL) Basic metabolic panel (04/10/2024 5:20 AM EST) Sodium 139 133 - 145 mmol/L LAB CHEMISTRY METHOD 04/10/2024 8:03 AM [facility] Potassium 3.8 3.5 - 5.5 mmol/L LAB CHEMISTRY METHOD 04/10/2024 8:03 AM [facility] Chloride 104 96 - 110 mmol/L LAB CHEMISTRY METHOD 04/10/2024 8:03 AM [facility] CO2 31 21 - 32 mmol/L LAB CHEMISTRY METHOD 04/10/2024 8:03 AM [facility] Anion Gap 4 3 - 11 LAB CHEMISTRY METHOD 04/10/2024 8:03 AM [facility] Glucose 123(H) 70 - 100 mg/dL LAB CHEMISTRY METHOD 04/10/2024 8:03 AM [facility] BUN 11 5 - 25 mg/dL LAB CHEMISTRY METHOD 04/10/2024 8:03 AM [facility] Creatinine 0.44(L) 0.50 - 1.10 mg/dL LAB CHEMISTRY METHOD 04/10/2024 8:03 AM [facility] eGFR 96 >=60 mL/min/1. 73m2 LAB CHEMISTRY METHOD 04/10/2024 8:03 AM [facility] Comment:Calculation based on the??Chronic Kidney Disease Epidemiology Collaboration (CKD-EPI) equation refit??without adjustment for race. BUN/Creatinine Ratio 25.0 LAB CHEMISTRY METHOD 04/10/2024 8:03 AM [facility] Calcium 8.1(L) 8.5 - 10.5 mg/dL LAB CHEMISTRY METHOD 04/10/2024 8:03 AM [facility] Blood Venous blood specimen / Unknown Venipuncture / Unknown 04/10/2024 5:20 AM EST 04/10/2024 7:34 AM EST us Mookie Donovan MD LAB BLOOD ORDERABLES Final Result [facility] [address] [place] [address], * (ABNORMAL) Complete blood count (04/10/2024 5:20 AM EST) WBC 10.3 4.8 - 10.8 K/mcL LAB HEMETOLOGY METHOD 04/10/2024 7:58 AM [facility] RBC 3.40(L) 3.80 - 4.80 M/mcL LAB HEMETOLOGY METHOD 04/10/2024 7:58 AM [facility] Hemoglobin 9.2(L) 11.5 - 16.0 g/dL LAB HEMETOLOGY METHOD 04/10/2024 7:58 AM [facility] Hematocrit 30.2(L) 35.0 - 47.0 % LAB HEMETOLOGY METHOD 04/10/2024 7:58 AM [facility] MCV 89.9 79.0 - 98.0 FL LAB HEMETOLOGY METHOD 04/10/2024 7:58 AM [facility] MCH 27.4 27.0 - 32.0 pcg LAB HEMETOLOGY METHOD 04/10/2024 7:58 AM [facility] MCHC 30.5(L) 32.0 - 37.0 g/dL LAB HEMETOLOGY METHOD 04/10/2024 7:58 AM EST [facility] RDW 16.9(H) 11.0 - 15.0 % LAB HEMETOLOGY METHOD 04/10/2024 7:58 AM EST [facility] Platelets 330 130 - 400 K/mcL LAB HEMETOLOGY METHOD 04/10/2024 7:58 AM EST [facility] MPV 10.9 7.0 - 11.0 FL LAB HEMETOLOGY METHOD 04/10/2024 7:58 AM EST [facility] NRBC 0.0 <1.0 % LAB HEMETOLOGY METHOD 04/10/2024 7:58 AM EST [facility] NRBC Absolute 0.00 <0.10 K/mcL LAB HEMETOLOGY METHOD 04/10/2024 7:58 AM [facility] Blood Venous blood specimen / Unknown Venipuncture / Unknown 04/10/2024 5:20 AM EST 04/10/2024 7:34 AM EST Mookie Donovan MD LAB BLOOD ORDERABLES Final Result [facility] [address] [place] [address], documented in this encounter Visit Diagnoses Diagnosis Anemia, unspecified documented in this encounter Additional Health Concerns Infection Onset Date Last Indicated Resolved Time ESBL 04/25/2024 04/25/2024 documented as of this encounter Care Teams Mining Helper Relationship Specialty Start Date End Date Melissa Shannon MD [address] [place] [address] PCP - General Internal Medicine 04/02/13 documented as of this encounter
[2024-08-15 13:42] LABS: Appearance Urine Turbid; Color Urine Yellow; Glucose Urine UA Negative (Negative); Leukocyte Esterase Urine Small (1+) (Negative); Nitrite Urine Positive (Negative); PH 5.5 (5.0-9.0); Specific Gravity - Urine >= 1.030 (1.005-1.025); UMIC TRIGGER UACC YES; Urine Blood Negative (Negative); Urine Ketones Trace mg/dL (Negative); Urine Protein 30 (1+) mg/dL (Neg-Trace)
[2024-08-15 13:45] LABS: Bacteria Urine 4+ (None Seen); RBC Urine 0-2 /HPF (0-2); UACC Culture Trigger YES; WBC Urine 21-50 /HPF (0-5)
== END 2024-08-15 06:31 | disposition home or self-care (01) ==
LOC: HO.HMGCLNP 06:30
PROVIDERS: PCP Internal Medicine; Visit Provider Internal Medicine
DX: R30.0 Dysuria (principal); R35.0 Frequency of micturition
CPT/HCPCS: 81001; 87086; 87088; 87186

== ENCOUNTER 2024-09-05 09:36 | Outpatient (REF) | payer MEDICARE, MEDICAID, SELFPAY ==
--- NOTE | ~2024-09-05 | XR_ITS ---
EXAMINATION: XR HUMERUS RIGHT HISTORY: S42.301A - Unspecified fracture of shaft of humerus, right arm, initial ... COMPARISON: Comparison is made with the prior examination dated 07/11/2024. FINDINGS: AP and lateral views of the right humerus are submitted. Osseous mineralization is normal. Again seen is an oblique fracture of the distal humerus which is moderately displaced. There is callus formation seen, consistent with healing. 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 The soft tissues are unremarkable. XR/XR humerus RT IMPRESSION: Healing oblique displaced fracture of the distal humerus. Electronically signed by: Dg Brannon MD 09/06/2024 07:58 AM EDT
--- OUTSIDE RECORDS SUMMARY | 2024-09-06 10:25 | XMS_ITS | Clinical Summary ---
Author Organization 300 [facility] Address [address] [place] [address] Phone Care Team Providers Care Tubing Assembler Name Role Phone Melissa Shannon MD Primary [...] mometasone (NASONEX) 50 mcg/actuation nasal spray 1 [place] by Nasal route at bedtime. Active montelukast [...] her to speak with her PCP and/your polish compounder given her recent COVID infection as well [...] they are available to me. Aortic aneurysm ([facility] V24) 08/12/2020 Overview (03/08/2024): Last Assessment & [...] berenice, ARB and diuretic. Paroxysmal atrial fibrillation ([facility] V24, [facility] V28) 08/12/2020 Overview (03/08/2024): Last Assessment & [...] Description 09/25/2024 3:30 PM EDT Ancillary Procedure [facility] [address] [phone] 01/09/2025 10:20 AM EDT Office Visit [facility] [address] [phone] Awais Hylton MD [address] [address] Health Maintenance Due Date Last Done Comments [...] mmol/L LAB CHEMISTRY METHOD 04/26/2024 8:38 AM [facility] Potassium 3.7 3.5 - 5.5 mmol/L LAB CHEMISTRY METHOD 04/26/2024 8:38 AM [facility] Chloride 101 96 - 110 mmol/L LAB CHEMISTRY METHOD 04/26/2024 8:38 AM EST [facility] CO2 34(H) 21 - 32 mmol/L LAB CHEMISTRY METHOD 04/26/2024 8:38 AM [facility] Anion Gap 2(L) 3 - 11 LAB CHEMISTRY METHOD 04/26/2024 8:38 AM [facility] Glucose 133(H) 70 - 100 mg/dL LAB CHEMISTRY METHOD 04/26/2024 8:38 AM EST [facility] BUN 15 5 - 25 mg/dL LAB CHEMISTRY METHOD 04/26/2024 8:38 AM [facility] Creatinine 0.60 0.50 - 1.10 mg/dL LAB CHEMISTRY METHOD 04/26/2024 8:38 AM EST [facility] eGFR 89 >=60 mL/min/1. 73m2 LAB CHEMISTRY METHOD 04/26/2024 8:38 AM EST [facility] Comment:Calculation based on the??Chronic Kidney Disease Epidemiology Collaboration (CKD-EPI) equation refit??without adjustment for race. BUN/Creatinine Ratio 25.0 LAB CHEMISTRY METHOD 04/26/2024 8:38 AM EST [facility] Calcium 8.7 8.5 - 10.5 mg/dL LAB CHEMISTRY METHOD 04/26/2024 8:38 AM [facility] Blood Venous blood specimen / Unknown Venipuncture / Unknown 04/26/2024 6:34 AM EST 04/26/2024 7:53 AM EST us Mookie Donovan MD LAB BLOOD ORDERABLES Final Result [facility] [address] [place] [address], from Last 3 Months or Most Recently Relevant to Health Maintenance Additional Health Concerns Infection Onset Date Last Indicated ESBL 04/25/2024 04/25/2024 Insurance MEDICAID - [place] MEDICARE Care Teams Tubing Assembler Relationship Specialty Start Date End Date Melissa Shannon MD [address] [place] [address] PCP - General Internal Medicine 04/02/13
--- OUTSIDE RECORDS SUMMARY | 2024-09-06 10:25 | XMS_ITS | Encounter Summary ---
Author Organization Jessi [facility] [place] [address] Care Team Providers Care Adjutant General Name Role Phone Melissa Shannon MD Primary Care Provider Encounter Details Date Type Department Care Team (Late st Contact Info) Description 04/26/2024 Lab Requisition [facility] - Main Lab 299 [facility] [place] [phone] Mookie Donovan MD [address] [place] [address] Dysuria Social History Tobacco Use Types Packs/Day [...] Description 09/25/2024 3:30 PM EDT Ancillary Procedure [facility] Cardiology [facility] [address] [phone] 01/09/2025 10:20 AM EDT Office Visit [facility] [address] [phone] Awais Hylton MD [address] [place] [address] documented as of this encounter Procedures Procedure Name Priority Date/Time Associated Diagnosis Comments URINALYSIS WITH REFLEX MICROSCOPIC Routine 04/25/2024 1:30 PM EST Dysuria URINALYSIS WITH REFLEX MICROSCOPIC Routine 04/25/2024 1:30 PM EST Dysuria CULTURE URINE Routine 04/25/2024 1:30 PM EST Dysuria documented in this encounter Results * (ABNORMAL) Urinalysis with reflex microscopic (04/25/2024 1:30 PM EST) Specific [place] Urine 1.028 1.003 - 1.030 LAB URINALYSIS - AUTOMATED METHOD 04/26/2024 9:[address] [facility] pH, Urine 5.5 5.0 - 8.0 pH LAB URINALYSIS - AUTOMATED METHOD 04/26/2024 9:[address] [facility] Leukocytes, Urine Moderate(A) Negative LAB URINALYSIS - AUTOMATED METHOD 04/26/2024 9:[address] [facility] Nitrite, Urine Negative Negative LAB URINALYSIS - AUTOMATED METHOD 04/26/2024 9:[address] [facility] Protein, Urine 100(A) <=Trace mg/dL LAB URINALYSIS - AUTOMATED METHOD 04/26/2024 9:[address] [facility] Glucose, Urine Negative Negative mg/dL LAB URINALYSIS - AUTOMATED METHOD 04/26/2024 9:[address] [facility] Ketones, Urine Trace(A) Negative mg/dL LAB URINALYSIS - AUTOMATED METHOD 04/26/2024 9:[address] [facility] Urobilinogen , Urine 1.0 0.2 - 1.0 mg/dL LAB URINALYSIS - AUTOMATED METHOD 04/26/2024 9:[address] [facility] Bilirubin, Urine Negative Negative LAB URINALYSIS - AUTOMATED METHOD 04/26/2024 9:[address] [facility] Blood, Urine Moderate(A) Negative LAB URINALYSIS - AUTOMATED METHOD 04/26/2024 9:[address] [facility] RBC, Urine 7.4(H) 0 - 4 /HPF LAB URINALYSIS - AUTOMATED METHOD 04/26/2024 9:[address] [facility] WBC, Urine 700.4(H) 0 - 4 /HPF LAB URINALYSIS - AUTOMATED METHOD 04/26/2024 9:[address] [facility] Squamous Epithelial, Urine 48 0 - 60 /LPF LAB URINALYSIS - AUTOMATED METHOD 04/26/2024 9:[address] [facility] Bacteria, Urine Many(A) Negative /HPF LAB URINALYSIS - AUTOMATED METHOD 04/26/2024 9:[address] [facility] Hyaline Casts, Urine 1.0 0 - 3 /LPF LAB URINALYSIS - AUTOMATED METHOD 04/26/2024 9:[address] [facility] Urine Urine specimen obtained by clean catch procedure / Unknown 04/25/2024 1:30 PM EST 04/26/2024 8:19 AM EST Mookie Donovan MD LAB URINE ORDERABLES Final Result [facility] [address] [place] [address], * (ABNORMAL) Culture urine (04/25/2024 1:30 PM EST) Culture, Urine >100,000 CFU/mL Escherichia coli ESBL(A) [place] 04/30/2024 9:[address] [facility] Comment: THIS ORGANISM [...] pneumoniae ESBL(A) [place] 04/30/2024 9:38 AM EST [facility] Comment: THIS ORGANISM [...] PM EST 04/26/2024 8:19 AM EST Narrative [facility] - 04/30/2024 9:38 AM [...] GENERAL ORDERABLES Final Result Performing Organization Address City/State/[facility] Co de Phone Number [facility] [address] [place] [address], documented in this encounter Visit Diagnoses Diagnosis Dysuria documented in this encounter Additional Health Concerns Infection Onset Date Last Indicated Resolved Time ESBL 04/25/2024 04/25/2024 documented as of this encounter Care Teams Adjutant General Relationship Specialty Start Date End Date Melissa Shannon MD [address] [place] [address] PCP - General Internal Medicine 04/02/13 documented as of this encounter
--- OUTSIDE RECORDS SUMMARY | 2024-09-06 10:25 | XMS_ITS | Encounter Summary ---
Author Organization Jessi [facility] [place] [address] Care Team Providers Care Prepress Manager Name Role Phone Melissa Shannon MD Primary Care Provider Encounter Details Date Type Department Care Team (Late st Contact Info) Description 04/16/2024 Lab Requisition [facility] - Main Lab 299 [facility] [address] [place] [phone] Mookie Donovan MD [address] [place] [address] Anemia, unspecified Social History Tobacco Use Types [...] Description 09/25/2024 3:30 PM EDT Ancillary Procedure [facility] Cardiology [facility] [address] [phone] 01/09/2025 10:20 AM EDT Office Visit [facility] Cardiology [facility] [address] [phone] Awais Hylton MD [address] [place] [address] documented as of this encounter Procedures Procedure Name Priority Date/Time Associated Diagnosis Comments COMPLETE BLOOD COUNT Routine 04/17/2024 7:30 AM EST Anemia, unspecified BASIC METABOLIC PANEL Routine 04/17/2024 7:30 AM EST Anemia, unspecified documented in this encounter Results * (ABNORMAL) Basic metabolic panel (04/17/2024 7:30 AM EST) Sodium 133 133 - 145 mmol/L LAB CHEMISTRY METHOD 04/17/2024 10:43 AM [facility] Potassium 4.1 3.5 - 5.5 mmol/L LAB CHEMISTRY METHOD 04/17/2024 10:43 AM [facility] Chloride 95(L) 96 - 110 mmol/L LAB CHEMISTRY METHOD 04/17/2024 10:43 AM [facility] CO2 28 21 - 32 mmol/L LAB CHEMISTRY METHOD 04/17/2024 10:43 AM [facility] Anion Gap 10 3 - 11 LAB CHEMISTRY METHOD 04/17/2024 10:43 AM [facility] Glucose 126(H) 70 - 100 mg/dL LAB CHEMISTRY METHOD 04/17/2024 10:43 AM [facility] BUN 10 5 - 25 mg/dL LAB CHEMISTRY METHOD 04/17/2024 10:43 AM [facility] Creatinine 0.59 0.50 - 1.10 mg/dL LAB CHEMISTRY METHOD 04/17/2024 10:43 AM [facility] eGFR 90 >=60 mL/min/1. 73m2 LAB CHEMISTRY METHOD 04/17/2024 10:43 AM [facility] Comment:Calculation based on the??Chronic Kidney Disease Epidemiology Collaboration (CKD-EPI) equation refit??without adjustment for race. BUN/Creatinine Ratio 16.9 LAB CHEMISTRY METHOD 04/17/2024 10:43 AM [facility] Calcium 8.8 8.5 - 10.5 mg/dL LAB CHEMISTRY METHOD 04/17/2024 10:43 AM [facility] Blood Venous blood specimen / Unknown Venipuncture / Unknown 04/17/2024 7:30 AM EST 04/17/2024 10:07 AM EST us Mookie Donovan MD LAB BLOOD ORDERABLES Final Result [facility] [address] [place] [address], * (ABNORMAL) Complete blood count (04/17/2024 7:30 AM EST) WBC 10.2 4.8 - 10.8 K/mcL LAB HEMETOLOGY METHOD 04/17/2024 10:33 AM [facility] RBC 3.70(L) 3.80 - 4.80 M/mcL LAB HEMETOLOGY METHOD 04/17/2024 10:33 AM [facility] Hemoglobin 10.0(L) 11.5 - 16.0 g/dL LAB HEMETOLOGY METHOD 04/17/2024 10:33 AM [facility] Hematocrit 32.0(L) 35.0 - 47.0 % LAB HEMETOLOGY METHOD 04/17/2024 10:33 AM [facility] MCV 87.2 79.0 - 98.0 FL LAB HEMETOLOGY METHOD 04/17/2024 10:33 AM [facility] MCH 27.2 27.0 - 32.0 pcg LAB HEMETOLOGY METHOD 04/17/2024 10:33 AM [facility] MCHC 31.3(L) 32.0 - 37.0 g/dL LAB HEMETOLOGY METHOD 04/17/2024 10:33 AM EST [facility] RDW 16.4(H) 11.0 - 15.0 % LAB HEMETOLOGY METHOD 04/17/2024 10:33 AM EST [facility] Platelets 191 130 - 400 K/mcL LAB HEMETOLOGY METHOD 04/17/2024 10:33 AM EST [facility] MPV 10.9 7.0 - 11.0 FL LAB HEMETOLOGY METHOD 04/17/2024 10:33 AM EST [facility] NRBC 0.0 <1.0 % LAB HEMETOLOGY METHOD 04/17/2024 10:33 AM EST [facility] NRBC Absolute 0.00 <0.10 K/mcL LAB HEMETOLOGY METHOD 04/17/2024 10:33 AM [facility] Blood Venous blood specimen / Unknown Venipuncture / Unknown 04/17/2024 7:30 AM EST 04/17/2024 10:07 AM EST Mookie Donovan MD LAB BLOOD ORDERABLES Final Result [facility] [address] [place] [address], documented in this encounter Visit Diagnoses Diagnosis Anemia, unspecified documented in this encounter Additional Health Concerns Infection Onset Date Last Indicated Resolved Time ESBL 04/25/2024 04/25/2024 documented as of this encounter Care Teams Prepress Manager Relationship Specialty Start Date End Date Melissa Shannon MD [address] [place] [address] PCP - General Internal Medicine 04/02/13 documented as of this encounter
--- OUTSIDE RECORDS SUMMARY | 2024-09-06 10:25 | XMS_ITS | Encounter Summary ---
Author Organization [facility]i [facility] [place] [address] Care Team Providers Care Senior Php Web Developer Name Role Phone Melissa Shannon MD Primary Care Provider Encounter Details Date Type Department Care Team (Late st Contact Info) Description 04/26/2024 Lab Requisition [facility] - Main Lab 299 [facility] [place] [phone] Mookie Donovan MD [address] [place] [address] Anemia, unspecified; Type 2 diabetes mellitus without [...] Description 09/25/2024 3:30 PM EDT Ancillary Procedure [facility] [address] [address] 01/09/2025 10:20 AM EDT Office Visit [facility] [address] [phone] Awais Hylton MD [address] [address] documented as of this encounter Procedures Procedure [...] LAB CHEMISTRY METHOD 04/26/2024 8:47 AM EST [facility] Blood Venous blood specimen / Unknown Venipuncture / Unknown 04/26/2024 6:34 AM EST 04/26/2024 7:53 AM EST us Mookie Donovan MD LAB BLOOD ORDERABLES Final Result [facility] [address] [place] [address], * Thyroxine free (04/26/2024 6:34 AM EST) Free T4 1.25 0.70 - 1.80 ng/dL LAB CHEMISTRY METHOD 04/26/2024 8:46 AM EST [facility] Blood Venous blood specimen / Unknown Venipuncture / Unknown 04/26/2024 6:34 AM EST 04/26/2024 7:53 AM EST us Mookie Donovan MD LAB BLOOD ORDERABLES Final Result Performing Organization Address [facility]/ZIP Co de Phone Number [facility] [address] [place] [address], [place] [phone] * (ABNORMAL) Thyroid stimulating hormone (04/26/2024 6:34 AM EST) Pathologist [facility] TSH 6.69(H) 0.40 - 4.00 mcIU/mL LAB CHEMISTRY METHOD 04/26/2024 8:48 AM EST [facility] Blood Venous blood specimen / Unknown Venipuncture / Unknown 04/26/2024 6:34 AM EST 04/26/2024 7:53 AM EST us Mookie Donovan MD LAB BLOOD ORDERABLES Final Result Performing Organization Address [facility] Co de Phone Number [facility] [address] [place] [address], [place] [phone] * (ABNORMAL) Basic metabolic panel (04/26/2024 6:34 AM EST) Pathologist [facility] Sodium 137 133 - 145 mmol/L LAB CHEMISTRY METHOD 04/26/2024 8:38 AM EST [facility] Potassium 3.7 3.5 - 5.5 mmol/L LAB CHEMISTRY METHOD 04/26/2024 8:38 AM EST [facility] Chloride 101 96 - 110 mmol/L LAB CHEMISTRY METHOD 04/26/2024 8:38 AM EST [facility] CO2 34(H) 21 - 32 mmol/L LAB CHEMISTRY METHOD 04/26/2024 8:38 AM [facility] Anion Gap 2(L) 3 - 11 LAB CHEMISTRY METHOD 04/26/2024 8:38 AM [facility] Glucose 133(H) 70 - 100 mg/dL LAB CHEMISTRY METHOD 04/26/2024 8:38 AM [facility] BUN 15 5 - 25 mg/dL LAB CHEMISTRY METHOD 04/26/2024 8:38 AM [facility] Creatinine 0.60 0.50 - 1.10 mg/dL LAB CHEMISTRY METHOD 04/26/2024 8:38 AM [facility] eGFR 89 >=60 mL/min/1. 73m2 LAB CHEMISTRY METHOD 04/26/2024 8:38 AM [facility] Comment:Calculation based on the??Chronic Kidney Disease Epidemiology Collaboration (CKD-EPI) equation refit??without adjustment for race. BUN/Creatinine Ratio 25.0 LAB CHEMISTRY METHOD 04/26/2024 8:38 AM [facility] Calcium 8.7 8.5 - 10.5 mg/dL LAB CHEMISTRY METHOD 04/26/2024 8:38 AM [facility] Blood Venous blood specimen / Unknown Venipuncture / Unknown 04/26/2024 6:34 AM EST 04/26/2024 7:53 AM EST Mookie Donovan MD LAB BLOOD ORDERABLES Final Result [facility] [address] [place] [address], * (ABNORMAL) Complete blood count (04/26/2024 6:34 AM EST) WBC 10.3 4.8 - 10.8 K/mcL LAB HEMETOLOGY METHOD 04/26/2024 8:13 AM [facility] RBC 3.60(L) 3.80 - 4.80 M/mcL LAB HEMETOLOGY METHOD 04/26/2024 8:13 AM [facility] Hemoglobin 9.7(L) 11.5 - 16.0 g/dL LAB HEMETOLOGY METHOD 04/26/2024 8:13 AM [facility] Hematocrit 31.6(L) 35.0 - 47.0 % LAB HEMETOLOGY METHOD 04/26/2024 8:13 AM [facility] MCV 88.3 79.0 - 98.0 FL LAB HEMETOLOGY METHOD 04/26/2024 8:13 AM [facility] MCH 27.1 27.0 - 32.0 pcg LAB HEMETOLOGY METHOD 04/26/2024 8:13 AM [facility] MCHC 30.7(L) 32.0 - 37.0 g/dL LAB HEMETOLOGY METHOD 04/26/2024 8:13 AM [facility] RDW 17.0(H) 11.0 - 15.0 % LAB HEMETOLOGY METHOD 04/26/2024 8:13 AM [facility] Platelets 215 130 - 400 K/mcL LAB HEMETOLOGY METHOD 04/26/2024 8:13 AM [facility] MPV 10.8 7.0 - 11.0 FL LAB HEMETOLOGY METHOD 04/26/2024 8:13 AM [facility] NRBC 0.0 <1.0 % LAB HEMETOLOGY METHOD 04/26/2024 8:13 AM [facility] NRBC Absolute 0.00 <0.10 K/mcL LAB HEMETOLOGY METHOD 04/26/2024 8:13 AM [facility] Blood Venous blood specimen / Unknown Venipuncture / Unknown 04/26/2024 6:34 AM EST 04/26/2024 7:53 AM EST us Mookie Donovan MD LAB BLOOD ORDERABLES Final Result [facility] LAB [address] [place] [address], documented in this encounter Visit Diagnoses Diagnosis Anemia, unspecified Type 2 diabetes mellitus without complications (CMS/[facility] V24, CMS/HCC V28) documented in this encounter Additional Health Concerns Infection Onset Date Last Indicated Resolved Time ESBL 04/25/2024 04/25/2024 documented as of this encounter Care Teams Senior Php Web Developer Relationship Specialty Start Date End Date Melissa Shannon MD [address] [place] [address] PCP - General Internal Medicine 04/02/13 documented as of this encounter
--- OUTSIDE RECORDS SUMMARY | 2024-09-06 10:25 | XMS_ITS | Encounter Summary ---
[facility] [place] [address] Care Team Providers Care Edge Stainer Name Role Phone Melissa Shannon MD Primary Care Provider Encounter Details Date Type Department Care Team (Late Contact Info) Description 04/06/2024 Lab Requisition [facility] - Main Lab 299 [facility] [place] [address] Mookie Donovan MD [address] [place] [address] Unspecified dementia, unspecified severity, without behavioral disturbance, [...] Description 09/25/2024 3:30 PM EDT Ancillary Procedure [facility] [address] [place] [phone] 01/09/2025 10:20 AM EDT Office Visit [facility] [address] [phone] Awais Hylton MD [address] [address] documented as of this encounter Procedures Procedure Name Priority Date/Time Associated Diagnosis Comments CLOSTRIDIUM DIFFICILE TOXIN Routine 04/05/2024 5:00 PM EST Unspecified dementia, unspecified severity, without behavioral disturbance, psychotic disturbance, mood disturbance, and anxiety (CMS/HCC) Unspecified infectious disease documented in this encounter Results * Clostridium difficile toxin (04/05/2024 5:00 PM EST) Clostridium difficile GDH Antigen Negative Negative 04/06/2024 1:38 PM EST [facility] C difficile Toxins A+B, EIA Negative Negative 04/06/2024 1:38 PM EST [facility] Comment:NEGATIVE FOR TOXIN P RODUCING CLOSTRIDIOIDES DIFFICILE, NO ADDITIONAL TESTING IS NECESSARY. Stool Rectum structure / Unknown 04/05/2024 5:00 PM EST 04/06/2024 9:25 AM EST us Mookie Donovan MD LAB MICROBIOLOGY - GENERAL ORDERABLES Final Result [facility] [address] [place] [address], documented in this encounter Visit Diagnoses Diagnosis Unspecified dementia, unspecified severity, without behavioral disturbance, psychotic disturbance, mood disturbance, and anxiety (CMS/HCC V24, CMS/HCC V28) Unspecified infectious disease documented in this encounter Additional Health Concerns Infection Onset Date Last Indicated Resolved Time ESBL 04/25/2024 04/25/2024 documented as of this encounter Care Teams Edge Stainer Relationship Specialty Start Date End Date Melissa Shannon MD [address] [place] [address] PCP - General Internal Medicine 04/02/13 documented as of this encounter
--- OUTSIDE RECORDS SUMMARY | 2024-09-06 10:25 | XMS_ITS | Encounter Summary ---
Author Organization [facility]i [facility] [place] [address] Care Team Providers Care Legal Contracts Specialist Name Role Phone Melissa Shannon MD Primary Care Provider [phone] Encounter Details Date Type Department Care Team (Late st Contact Info) Description 03/29/2024 Lab Requisition [facility] - Main Lab 299 [facility] [place] [address] Mookie Donovan MD [address] [place] [address] Unspecified atrial fibrillation (CMS/HCC V24, CMS/HCC V28); [...] Description 09/25/2024 3:30 PM EDT Ancillary Procedure [facility] [address] [place] [phone] 01/09/2025 10:20 AM EDT Office Visit [facility] [address] [phone] Awais Hylton MD [address] [address] documented as of this encounter Procedures Procedure [...] Hold for add-ons. 03/29/2024 11:01 AM EST [facility] Comment:Auto resulted. Blood Venous blood specimen / Unknown 03/29/2024 6:51 AM EST 03/29/2024 9:08 AM EST us Mookie Donovan MD LAB BLOOD ORDERABLES Final Result [facility] [address] [place] [address], * (ABNORMAL) CBC auto differential (03/29/2024 6:51 AM EST) [facility] WBC 16.1(H) 4.8 - 10.8 K/mcL LAB HEMETOLOGY METHOD 03/29/2024 9:23 AM [facility] RBC 3.20(L) 3.80 - 4.80 M/mcL LAB HEMETOLOGY METHOD 03/29/2024 9:23 AM [facility] Hemoglobin 9.1(L) 11.5 - 16.0 g/dL LAB HEMETOLOGY METHOD 03/29/2024 9:23 AM [facility] Hematocrit 28.3(L) 35.0 - 47.0 % LAB HEMETOLOGY METHOD 03/29/2024 9:23 AM [facility] MCV 88.2 79.0 - 98.0 FL LAB HEMETOLOGY METHOD 03/29/2024 9:23 AM [facility] MCH 28.3 27.0 - 32.0 pcg LAB HEMETOLOGY METHOD 03/29/2024 9:23 AM [facility] MCHC 32.2 32.0 - 37.0 g/dL LAB HEMETOLOGY METHOD 03/29/2024 9:23 AM [facility] RDW 17.6(H) 11.0 - 15.0 % LAB HEMETOLOGY METHOD 03/29/2024 9:23 AM [facility] Platelets 482(H) 130 - 400 K/mcL LAB HEMETOLOGY METHOD 03/29/2024 9:23 AM [facility] MPV 9.2 7.0 - 11.0 FL LAB HEMETOLOGY METHOD 03/29/2024 9:23 AM [facility] NRBC 0.0 <1.0 % LAB HEMETOLOGY METHOD 03/29/2024 9:23 AM [facility] NRBC Absolute 0.00 <0.10 K/mcL LAB HEMETOLOGY METHOD 03/29/2024 9:23 AM [facility] Neutrophils Relative 82.2 % LAB HEMETOLOGY METHOD 03/29/2024 9:23 AM [facility] Lymphocytes Relative 8.3 % LAB HEMETOLOGY METHOD 03/29/2024 9:23 AM [facility] Monocytes Relative 7.4 % LAB HEMETOLOGY METHOD 03/29/2024 9:23 AM [facility] Eosinophils Relative 0.3 % LAB HEMETOLOGY METHOD 03/29/2024 9:23 AM [facility] Basophils Relative 0.2 % LAB HEMETOLOGY METHOD 03/29/2024 9:23 AM [facility] Immature Granulocytes Relative 1.6 % LAB HEMETOLOGY METHOD 03/29/2024 9:23 AM [facility] Neutrophils Absolute 13.23(H) 1.50 - 7.00 K/mcL LAB HEMETOLOGY METHOD 03/29/2024 9:23 AM [facility] Lymphocytes Absolute 1.33 1.00 - 5.00 K/mcL LAB HEMETOLOGY METHOD 03/29/2024 9:23 AM [facility] Monocytes Absolute 1.19(H) 0.20 - 1.00 K/mcL LAB HEMETOLOGY METHOD 03/29/2024 9:23 AM [facility] Eosinophils Absolute 0.05 0.00 - 0.50 K/mcL LAB HEMETOLOGY METHOD 03/29/2024 9:23 AM [facility] Basophils Absolute 0.03 0.00 - 0.20 K/mcL LAB HEMETOLOGY METHOD 03/29/2024 9:23 AM [facility] Immature Granulocytes Absolute 0.25(H) 0.00 - 0.03 K/mcL LAB HEMETOLOGY METHOD 03/29/2024 9:23 AM EST [facility] Blood Venous blood specimen / Unknown Venipuncture / Unknown 03/29/2024 6:51 AM EST 03/29/2024 8:51 AM EST us Mookie Donovan MD LAB BLOOD ORDERABLES Final Result Performing Organization Address [facility]/ZIP Co de Phone Number [facility] [address] [place] [address], [place] [phone] * Hemoglobin A1c (03/29/2024 6:51 AM EST) Pathologist [facility] Hemoglobin A1C 6.1 <6.5 % LAB CHEMISTRY METHOD 03/29/2024 11:40 AM EST [facility] Mean Bld Glu Estim. 128 mg/dL LAB CHEMISTRY METHOD 03/29/2024 11:40 AM [facility] Blood Venous blood specimen / Unknown Venipuncture / Unknown 03/29/2024 6:51 AM EST 03/29/2024 8:51 AM EST us Mookie Donovan MD LAB BLOOD ORDERABLES Final Result Performing Organization Address [facility] de Phone Number [facility] [address] [place] [address], [place] [phone] * (ABNORMAL) Comprehensive metabolic panel (03/29/2024 6:51 AM EST) Pathologist [facility] Sodium 141 133 - 145 mmol/L LAB CHEMISTRY METHOD 03/29/2024 9:50 AM EST [facility] Potassium 3.0(L) 3.5 - 5.5 mmol/L LAB CHEMISTRY METHOD 03/29/2024 9:50 AM [facility] Chloride 107 96 - 110 mmol/L LAB CHEMISTRY METHOD 03/29/2024 9:50 AM EST [facility] CO2 24 21 - 32 mmol/L LAB CHEMISTRY METHOD 03/29/2024 9:50 AM [facility] Anion Gap 10 3 - 11 LAB CHEMISTRY METHOD 03/29/2024 9:50 AM [facility] Glucose 134(H) 70 - 100 mg/dL LAB CHEMISTRY METHOD 03/29/2024 9:50 AM [facility] BUN 13 5 - 25 mg/dL LAB CHEMISTRY METHOD 03/29/2024 9:50 AM [facility] Creatinine 0.46(L) 0.50 - 1.10 mg/dL LAB CHEMISTRY METHOD 03/29/2024 9:50 AM [facility] eGFR 95 >=60 mL/min/1. 73m2 LAB CHEMISTRY METHOD 03/29/2024 9:50 AM [facility] Comment:Calculation based on the??Chronic Kidney Disease Epidemiology Collaboration (CKD-EPI) equation refit??without adjustment for race. BUN/Creatinine Ratio 28.3 LAB CHEMISTRY METHOD 03/29/2024 9:50 AM [facility] Calcium 8.4(L) 8.5 - 10.5 mg/dL LAB CHEMISTRY METHOD 03/29/2024 9:50 AM [facility] AST (SGOT) 17 10 - 42 unit/L LAB CHEMISTRY METHOD 03/29/2024 9:50 AM [facility] ALT (SGPT) 13 10 - 60 unit/L LAB CHEMISTRY METHOD 03/29/2024 9:50 AM [facility] Alkaline Phosphatase 161(H) 42 - 121 unit/L LAB CHEMISTRY METHOD 03/29/2024 9:50 AM [facility] Total Protein 5.5(L) 6.0 - 8.0 g/dL LAB CHEMISTRY METHOD 03/29/2024 9:50 AM [facility] Albumin 2.0(L) 3.2 - 5.0 g/dL LAB CHEMISTRY METHOD 03/29/2024 9:50 AM EST [facility] Total Bilirubin 0.4 0.0 - 1.4 mg/dL LAB CHEMISTRY METHOD 03/29/2024 9:50 AM EST [facility] Blood Venous blood specimen / Unknown Venipuncture / Unknown 03/29/2024 6:51 AM EST 03/29/2024 8:51 AM EST us Mookie Donovan MD LAB BLOOD ORDERABLES Final Result [facility] ([facility]) [facility] [address] [place] [address], documented in this encounter Visit Diagnoses Diagnosis Unspecified atrial fibrillation ([facility] V24, [facility] V28) Type 2 diabetes mellitus without complications ([facility] V24, [facility] V28) Anemia, unspecified documented in this encounter Additional Health Concerns Infection Onset Date Last Indicated Resolved Time ESBL 04/25/2024 04/25/2024 documented as of this encounter Care Teams Legal Contracts Specialist Relationship Specialty Start Date End Date Melissa Shannon MD [address] [facility] [place] [address] PCP - General Internal Medicine 04/02/13 documented as of this encounter
--- OUTSIDE RECORDS SUMMARY | 2024-09-06 10:25 | XMS_ITS | Encounter Summary ---
Author Organization [facility] [place] [address] Care Team Providers Care Information Technology Security Analyst Name Role Phone Melissa Shannon MD Primary Care Provider Encounter Details Date Type Department Care Team (Late st Contact Info) Description 04/02/2024 Lab Requisition [facility] - Main Lab 299 [facility] [place] [phone] Mookie Donovan MD [address] [place] [address] Anemia, unspecified Social History Tobacco Use Types [...] Description 09/25/2024 3:30 PM EDT Ancillary Procedure [facility] [address] [phone] 01/09/2025 10:20 AM EDT Office Visit [facility] [address] [phone] Awais Hylton MD [address] [address] documented as of this encounter Procedures Procedure Name Priority Date/Time Associated Diagnosis Comments MAGNESIUM Routine 04/03/2024 9:41 AM EST Anemia, unspecified COMPLETE BLOOD COUNT Routine 04/03/2024 8:41 AM EST Anemia, unspecified documented in this encounter Results * (ABNORMAL) Magnesium (04/03/2024 9:41 AM EST) Magnesium 1.5(L) 1.9 - 2.6 mg/dL LAB CHEMISTRY METHOD 04/03/2024 12:21 PM [facility] Blood Venous blood specimen / Unknown Venipuncture / Unknown 04/03/2024 9:41 AM EST 04/03/2024 10:44 AM EST us Mookie Donovan MD LAB BLOOD ORDERABLES Final Result [facility] [address] [place] [address], * (ABNORMAL) Complete blood count (04/03/2024 8:41 AM EST) WBC 12.7(H) 4.8 - 10.8 K/mcL LAB HEMETOLOGY METHOD 04/03/2024 11:05 AM [facility] RBC 3.30(L) 3.80 - 4.80 M/mcL LAB HEMETOLOGY METHOD 04/03/2024 11:05 AM [facility] Hemoglobin 9.8(L) 11.5 - 16.0 g/dL LAB HEMETOLOGY METHOD 04/03/2024 11:05 AM [facility] Hematocrit 29.3(L) 35.0 - 47.0 % LAB HEMETOLOGY METHOD 04/03/2024 11:05 AM [facility] MCV 88.5 79.0 - 98.0 FL LAB HEMETOLOGY METHOD 04/03/2024 11:05 AM [facility] MCH 29.6 27.0 - 32.0 pcg LAB HEMETOLOGY METHOD 04/03/2024 11:05 AM [facility] MCHC 33.4 32.0 - 37.0 g/dL LAB HEMETOLOGY METHOD 04/03/2024 11:05 AM [facility] RDW 17.3(H) 11.0 - 15.0 % LAB HEMETOLOGY METHOD 04/03/2024 11:05 AM [facility] Platelets 565(H) 130 - 400 K/mcL LAB HEMETOLOGY METHOD 04/03/2024 11:05 AM [facility] MPV 9.8 7.0 - 11.0 FL LAB HEMETOLOGY METHOD 04/03/2024 11:05 AM [facility] NRBC 0.0 <1.0 % LAB HEMETOLOGY METHOD 04/03/2024 11:05 AM [facility] NRBC Absolute 0.00 <0.10 K/mcL LAB HEMETOLOGY METHOD 04/03/2024 11:05 AM [facility] Blood Venous blood specimen / Unknown Venipuncture / Unknown 04/03/2024 8:41 AM EST 04/03/2024 10:46 AM EST us Mookie Donovan MD LAB BLOOD ORDERABLES Final Result [facility] [address] [place] [address], documented in this encounter Visit Diagnoses Diagnosis Anemia, unspecified documented in this encounter Additional Health Concerns Infection Onset Date Last Indicated Resolved Time ESBL 04/25/2024 04/25/2024 documented as of this encounter Care Teams Information Technology Security Analyst Relationship Specialty Start Date End Date Melissa Shannon MD [address] [place] [address] PCP - General Internal Medicine 04/02/13 documented as of this encounter
--- OUTSIDE RECORDS SUMMARY | 2024-09-06 10:25 | XMS_ITS | Encounter Summary ---
Author Organization [facility] [place] [address] Care Team Providers Care Power System Engineer Name Role Phone Melissa Shannon MD Primary Care Provider Encounter Details Date Type Department Care Team (Late st Contact Info) Description 04/09/2024 Lab Requisition [facility] - Main Lab 299 [facility] [place] [phone] Mookie Donovan MD [address] [place] [address] Anemia, unspecified Social History Tobacco Use Types [...] EDT Ancillary Procedure [facility] [address] [phone] 01/09/2025 10:20 AM EDT Office Visit [facility] [address] [phone] Awais Hylton MD [address] [place] [phone] documented as of this encounter Procedures Procedure Name Priority Date/Time Associated Diagnosis Comments COMPLETE BLOOD COUNT Routine 04/10/2024 5:20 AM EST Anemia, unspecified BASIC METABOLIC PANEL Routine 04/10/2024 5:20 AM EST Anemia, unspecified documented in this encounter Results * (ABNORMAL) Basic metabolic panel (04/10/2024 5:20 AM EST) Sodium 139 133 - 145 mmol/L LAB CHEMISTRY METHOD 04/10/2024 8:03 AM [facility] Potassium 3.8 3.5 - 5.5 mmol/L LAB CHEMISTRY METHOD 04/10/2024 8:03 AM [facility] Chloride 104 96 - 110 mmol/L LAB CHEMISTRY METHOD 04/10/2024 8:03 AM [facility] CO2 31 21 - 32 mmol/L LAB CHEMISTRY METHOD 04/10/2024 8:03 AM [facility] Anion Gap 4 3 - 11 LAB CHEMISTRY METHOD 04/10/2024 8:03 AM [facility] Glucose 123(H) 70 - 100 mg/dL LAB CHEMISTRY METHOD 04/10/2024 8:03 AM [facility] BUN 11 5 - 25 mg/dL LAB CHEMISTRY METHOD 04/10/2024 8:03 AM [facility] Creatinine 0.44(L) 0.50 - 1.10 mg/dL LAB CHEMISTRY METHOD 04/10/2024 8:03 AM [facility] eGFR 96 >=60 mL/min/1. 73m2 LAB CHEMISTRY METHOD 04/10/2024 8:03 AM [facility] Comment:Calculation based on the??Chronic Kidney Disease Epidemiology Collaboration (CKD-EPI) equation refit??without adjustment for race. BUN/Creatinine Ratio 25.0 LAB CHEMISTRY METHOD 04/10/2024 8:03 AM [facility] Calcium 8.1(L) 8.5 - 10.5 mg/dL LAB CHEMISTRY METHOD 04/10/2024 8:03 AM [facility] Blood Venous blood specimen / Unknown Venipuncture / Unknown 04/10/2024 5:20 AM EST 04/10/2024 7:34 AM EST us Mookie Donovan MD LAB BLOOD ORDERABLES Final Result [facility] [address] [place] [address], * (ABNORMAL) Complete blood count (04/10/2024 5:20 AM EST) WBC 10.3 4.8 - 10.8 K/mcL LAB HEMETOLOGY METHOD 04/10/2024 7:58 AM [facility] RBC 3.40(L) 3.80 - 4.80 M/mcL LAB HEMETOLOGY METHOD 04/10/2024 7:58 AM [facility] Hemoglobin 9.2(L) 11.5 - 16.0 g/dL LAB HEMETOLOGY METHOD 04/10/2024 7:58 AM [facility] Hematocrit 30.2(L) 35.0 - 47.0 % LAB HEMETOLOGY METHOD 04/10/2024 7:58 AM [facility] MCV 89.9 79.0 - 98.0 FL LAB HEMETOLOGY METHOD 04/10/2024 7:58 AM [facility] MCH 27.4 27.0 - 32.0 pcg LAB HEMETOLOGY METHOD 04/10/2024 7:58 AM [facility] MCHC 30.5(L) 32.0 - 37.0 [...] LAB HEMETOLOGY METHOD 04/10/2024 7:58 AM [facility] Blood Venous blood specimen / Unknown Venipuncture / Unknown 04/10/2024 5:20 AM EST 04/10/2024 7:34 AM EST Mookie Donovan MD LAB BLOOD ORDERABLES Final Result [facility] [address] [place] [address], documented in this encounter Visit Diagnoses Diagnosis Anemia, unspecified documented in this encounter Additional Health Concerns Infection Onset Date Last Indicated Resolved Time ESBL 04/25/2024 04/25/2024 documented as of this encounter Care Teams Power System Engineer Relationship Specialty Start Date End Date Melissa Shannon MD [address] [place] [address] PCP - General Internal Medicine 04/02/13 documented as of this encounter
== END 2024-09-05 09:37 | disposition home or self-care (01) ==
LOC: HO.HOSX 09:36
PROVIDERS: Visit Provider Physician Assistant
DX: S43.301A Subluxation of unspecified parts of right shoulder girdle, initial encounter (principal); Z87.81 Personal history of (healed) traumatic fracture
CPT/HCPCS: 73060; 99212

== ENCOUNTER 2024-09-05 13:43 | Outpatient (AMB) | payer MEDICARE, MEDICAID, SELFPAY ==
--- NOTE | 2024-09-05 13:45 | MHC.OFFVIS ---
Intake Visit Reasons: OV 8 wk f/u Rt hum shaft fx w xrays Intake Note: Joyce is a 84 year old right hand dominant female who presents today with her daughters for a follow up of her right humerus fracture, DOI 03/08/24. At patient last visit she was instructed to follow up in 8 weeks with new x-rays. Patient reports that she is having pain with use of her arm or with holding on to items. States that she feels pain on her left arm as well, however her daughter states she has arthritis in both of her shoulders. Allergies meperidine [Demerol] Allergy (Unknown, Verified 09/05/24 13:58) Nausea and Vomiting oxycodone Allergy (Unknown, Verified 09/05/24 13:58) Nausea and Vomiting Sulfa (Sulfonamide Antibiotics) [SULFA (SULFONAMIDE ANTIBIOTICS)] Allergy (Unknown, Verified 09/05/24 13:58) NAUSEA & VOMITING, GI upset morphine Allergy (Verified 09/05/24 13:58) Hallucinations Penicillins [PENICILLINS] Allergy (Verified 09/05/24 13:58) rash shellfish derived Allergy (Verified 09/05/24 13:58) Anaphylaxis warfarin [WARFARIN] Adverse Reaction (Severe, Verified 09/05/24 13:58) UNKNOWN aspirin [ASPIRIN] Adverse Reaction (Mild, Verified 09/05/24 13:58) gi bleed enoxaparin [From LOVENOX] Adverse Reaction (Unknown, Verified 09/05/24 13:58) INTERNAL BLEEDING heparin [HEPARIN] Adverse Reaction (Unknown, Verified 09/05/24 13:58) INTERNAL BLEEDING ibuprofen Adverse Reaction (Unknown, Verified 09/05/24 13:58) GI bleed MAGNOLIA Inhibitors Adverse Reaction (Verified 09/05/24 13:58) Angioedema Chocolate Adverse Reaction (Verified 09/05/24 13:58) Diarrhea HPI HPI OV 8 wk f/u Rt hum shaft fx w xrays: Details: 84-year-old female with a right humeral shaft fracture returns today for a follow-up. She is approximately 6 months from her injury. She has overall improved significantly with her pain. 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) GERD (gastroesophageal reflux disease) Deep vein thrombosis (DVT) of left lower extremity Gout Anxiety disorder Type 2 diabetes mellitus without complication, without long-term current use of insulin Hyperlipidemia Hypertension Surgical History H/O: hysterectomy History of gastric surgery Hx of hand surgery H/O local excision of skin lesion Family History Mother Mental health disorder Sister CVA (cerebral vascular accident) Daughter Brain tumor Diabetes Bipolar 1 disorder Heart abnormality Mental illness in member of household Mental health disorder Father Substance use disorder Son Mental health disorder Social History Household Members: Family Housing: House Do you presently have visiting nurse or other home services: No Alcohol intake: former Patient Tobacco Use Status: Former Tobacco user Years Smoked: 10 yrs e-Cigarette/Vaping Use: Never Used Second Hand Smoke Exposure: No Advance Directives Date on File: 07/27/21 service: No Current occupational status: retired Cognitive needs: No Hearing needs: No Vision needs: Yes Review of Systems Const All systems reviewed & are unremarkable except as noted in HPI and below Physical Exam Const General: cooperative and no acute distress Orientation/consciousness: patient oriented x3 Resp Effort & Inspection: normal respiratory effort and able to speak in complete sentences Cardio Peripheral pulses: Peripheral pulses 2+ throughout Neuro General: patient oriented x3 Extrem Other: Right shoulder normal to inspection. No significant discomfort over fracture site. No ecchymosis or swelling throughout the arm into the forearm. She does have good sensation throughout the forearm into the wrist and hand. Radial ulnar and medial nerve sensory and motor function intact. Results Reviewed Results Reviewed: X-rays of the right humerus obtained in the office today and reviewed by me show evidence of callus formation with unchanged alignment. Assessment & Plan Assessment & Plan (1) Hx of fracture of humerus: Code(s): Z87.81 - Personal history of (healed) traumatic fracture Category: Medical Plan: She can discontinue the use of the brace and she will advance activities as tolerated. I explained with her severe arthritis in the shoulder and elbow she will continue to have limitations in mobility. If symptoms arise or there is any concerns she will contact our office otherwise follow up as needed. Orders: Orders XR humerus RT Today S42.301A - Unspecified fracture of shaft of humerus, right arm, initial encounter for closed fracture Coding Level of Care Code Est Pt Level 3 (30198) Complex EM visit Add On G2211 Diagnoses Hx of fracture of humerus Z87.81
--- OUTSIDE RECORDS SUMMARY | 2024-09-05 13:48 | XMS_ITS | Encounter Summary ---
Author Organization Jessi [facility] [place] [address] Care Team Providers Care Category Director Name Role Phone Melissa Shannon MD Primary Care Provider Encounter Details Date Type Department Care Team (Late st Contact Info) Description 04/26/2024 Lab Requisition [facility] - Main Lab 299 [facility] [employer] [place] [phone] Mookie Donovan MD [address] [place] [address] Dysuria Social History Tobacco Use Types Packs/Day [...] Description 09/25/2024 3:30 PM EDT Ancillary Procedure [facility] Cardiology [facility] [address] [phone] 01/09/2025 10:20 AM EDT Office Visit [facility] [address] [phone] Awais Hylton MD [address] [place] [address] documented as of this encounter Procedures Procedure Name Priority Date/Time Associated Diagnosis Comments URINALYSIS WITH REFLEX MICROSCOPIC Routine 04/25/2024 1:30 PM EST Dysuria URINALYSIS WITH REFLEX MICROSCOPIC Routine 04/25/2024 1:30 PM EST Dysuria CULTURE URINE Routine 04/25/2024 1:30 PM EST Dysuria documented in this encounter Results * (ABNORMAL) Urinalysis with reflex microscopic (04/25/2024 1:30 PM EST) Specific [place] Urine 1.028 1.003 - 1.030 LAB URINALYSIS [...] Final Result [facility] [address] [place] [address], * (ABNORMAL) Culture urine (04/25/2024 1:30 PM [...] >=64 ug/ml: Resistant Escherichia coli ESBL Cefepime AWRREN 16 ug/ml: Resistant Escherichia coli ESBL Meropenem [...] GENERAL ORDERABLES Final Result Performing Organization Address City/State/[facility] Co de Phone Number [facility] [address] [place] [address], documented in this encounter Visit Diagnoses Diagnosis Dysuria documented in this encounter Additional Health Concerns Infection Onset Date Last Indicated Resolved Time ESBL 04/25/2024 04/25/2024 documented as of this encounter Care Teams Category Director Relationship Specialty Start Date End Date Melissa Shannon MD [address] [place] [address] PCP - General Internal Medicine 04/02/13 documented as of this encounter
--- OUTSIDE RECORDS SUMMARY | 2024-09-05 13:48 | XMS_ITS | Clinical Summary ---
Author Organization [facility] Address [address] [place] [address] Phone Care Team Providers Care Shredded Filler Hopper Feeder Name Role Phone Melissa Shannon MD Primary Care Provider [phone] Allergies Active Allergy Reactions Criticality Noted Date [...] mometasone (NASONEX) 50 mcg/actuation nasal spray 1 [place] by Nasal route at bedtime. Active montelukast [...] her to speak with her PCP and/your buffer copper given her recent COVID infection as well [...] they are available to me. Aortic aneurysm ([facility] V24) 08/12/2020 Overview (03/08/2024): Last Assessment & [...] berenice, ARB and diuretic. Paroxysmal atrial fibrillation ([facility] V24, [facility] V28) 08/12/2020 Overview (03/08/2024): Last Assessment & [...] Description 09/25/2024 3:30 PM EDT Ancillary Procedure [facility] Cardiology [facility] [address] [phone] 01/09/2025 10:20 AM EDT Office Visit [facility] [address] [phone] Awais Hylton MD [address] [address] Health Maintenance Due Date Last Done Comments [...] Screening 04/03/2022 COVID-19 Vaccine ( season) 2023 Influenza Vaccine (Season Ended) 2024 12/29/2022, 01/19/2022, 12/19/2020 Hypertension/CHF/CAD Annual BMP Blood Test 04/26/2025 04/26/2024, [...] Type 2 diabetes mellitus without complications (CMS/HCC) from Last 3 Months or Most Recently Relevant to Health Maintenance Results * (ABNORMAL) Basic metabolic panel (04/26/2024 6:34 AM EST) Sodium 137 133 - 145 mmol/L LAB CHEMISTRY METHOD 04/26/2024 8:38 AM [facility] Potassium 3.7 3.5 - 5.5 mmol/L LAB CHEMISTRY METHOD 04/26/2024 8:38 AM [facility] Chloride 101 96 - 110 mmol/L LAB CHEMISTRY METHOD 04/26/2024 8:38 AM EST [facility] CO2 34(H) 21 - 32 mmol/L LAB CHEMISTRY METHOD 04/26/2024 8:38 AM [facility] Anion Gap 2(L) 3 - 11 LAB CHEMISTRY METHOD 04/26/2024 8:38 AM [facility] Glucose 133(H) 70 - 100 mg/dL LAB CHEMISTRY METHOD 04/26/2024 8:38 AM EST [facility] BUN 15 5 - 25 mg/dL LAB CHEMISTRY METHOD 04/26/2024 8:38 AM [facility] Creatinine 0.60 0.50 - 1.10 mg/dL LAB CHEMISTRY METHOD 04/26/2024 8:38 AM EST [facility] eGFR 89 >=60 mL/min/1. 73m2 LAB CHEMISTRY METHOD 04/26/2024 8:38 AM EST [facility] Comment:Calculation based on the??Chronic Kidney Disease Epidemiology Collaboration (CKD-EPI) equation refit??without adjustment for race. BUN/Creatinine Ratio 25.0 LAB CHEMISTRY METHOD 04/26/2024 8:38 AM EST [facility] Calcium 8.7 8.5 - 10.5 mg/dL LAB CHEMISTRY METHOD 04/26/2024 8:38 AM [facility] Blood Venous blood specimen / Unknown Venipuncture / Unknown 04/26/2024 6:34 AM EST 04/26/2024 7:53 AM EST us Mookie Donovan MD LAB BLOOD ORDERABLES Final Result [facility] [address] [place] [address], from Last 3 Months or Most Recently Relevant to Health Maintenance Additional Health Concerns Infection Onset Date Last Indicated ESBL 04/25/2024 04/25/2024 Insurance MEDICAID - [place] MEDICARE Care Teams Shredded Filler Hopper Feeder Relationship Specialty Start Date End Date Melissa Shannon MD [address] [place] [address] PCP - General Internal Medicine 04/02/13
--- OUTSIDE RECORDS SUMMARY | 2024-09-05 13:48 | XMS_ITS | Encounter Summary ---
Author Organization Jessi [facility] [place] [address] Care Team Providers Care Perch Mender Name Role Phone Melissa Shannon MD Primary Care Provider Encounter Details Date Type Department Care Team (Late st Contact Info) Description 04/16/2024 Lab Requisition [facility] - Main Lab 299 [facility] [employer] [place] [phone] Mookie Donovan MD [address] [place] [address] Anemia, unspecified Social History Tobacco Use Types [...] Description 09/25/2024 3:30 PM EDT Ancillary Procedure [facility] Cardiology [facility] [address] [phone] 01/09/2025 10:20 AM EDT Office Visit [facility] Cardiology [facility] [address] [phone] Awais Hylton MD [address] [place] [address] documented as of this encounter Procedures Procedure Name Priority Date/Time Associated Diagnosis Comments COMPLETE BLOOD COUNT Routine 04/17/2024 7:30 AM EST Anemia, unspecified BASIC METABOLIC PANEL Routine 04/17/2024 7:30 AM EST Anemia, unspecified documented in this encounter Results * (ABNORMAL) Basic metabolic panel (04/17/2024 7:30 AM EST) Sodium 133 133 - 145 mmol/L LAB CHEMISTRY METHOD 04/17/2024 10:43 AM [facility] Potassium 4.1 3.5 - 5.5 mmol/L LAB CHEMISTRY METHOD 04/17/2024 10:43 AM [facility] Chloride 95(L) 96 - 110 mmol/L LAB CHEMISTRY METHOD 04/17/2024 10:43 AM [facility] CO2 28 21 - 32 mmol/L LAB CHEMISTRY METHOD 04/17/2024 10:43 AM [facility] Anion Gap 10 3 - 11 LAB CHEMISTRY METHOD 04/17/2024 10:43 AM [facility] Glucose 126(H) 70 - 100 mg/dL LAB CHEMISTRY METHOD 04/17/2024 10:43 AM [facility] BUN 10 5 - 25 mg/dL LAB CHEMISTRY METHOD 04/17/2024 10:43 AM [facility] Creatinine 0.59 0.50 - 1.10 mg/dL LAB CHEMISTRY METHOD 04/17/2024 10:43 AM [facility] eGFR 90 >=60 mL/min/1. 73m2 LAB CHEMISTRY METHOD 04/17/2024 10:43 AM [facility] Comment:Calculation based on the??Chronic Kidney Disease Epidemiology Collaboration (CKD-EPI) equation refit??without adjustment for race. BUN/Creatinine Ratio 16.9 LAB CHEMISTRY METHOD 04/17/2024 10:43 AM [facility] Calcium 8.8 8.5 - 10.5 mg/dL LAB CHEMISTRY METHOD 04/17/2024 10:43 AM [facility] Blood Venous blood specimen / Unknown Venipuncture / Unknown 04/17/2024 7:30 AM EST 04/17/2024 10:07 AM EST us Mookie Donovan MD LAB BLOOD ORDERABLES Final Result [facility] [address] [place] [address], * (ABNORMAL) Complete blood count (04/17/2024 7:30 AM EST) WBC 10.2 4.8 - 10.8 K/mcL LAB HEMETOLOGY METHOD 04/17/2024 10:33 AM [facility] RBC 3.70(L) 3.80 - 4.80 M/mcL LAB HEMETOLOGY METHOD 04/17/2024 10:33 AM [facility] Hemoglobin 10.0(L) 11.5 - 16.0 g/dL LAB HEMETOLOGY METHOD 04/17/2024 10:33 AM [facility] Hematocrit 32.0(L) 35.0 - 47.0 % LAB HEMETOLOGY METHOD 04/17/2024 10:33 AM [facility] MCV 87.2 79.0 - 98.0 FL LAB HEMETOLOGY METHOD 04/17/2024 10:33 AM [facility] MCH 27.2 27.0 - 32.0 pcg LAB HEMETOLOGY METHOD 04/17/2024 10:33 AM [facility] MCHC 31.3(L) 32.0 - 37.0 g/dL LAB HEMETOLOGY METHOD 04/17/2024 10:33 AM EST [facility] RDW 16.4(H) 11.0 - 15.0 % LAB HEMETOLOGY METHOD 04/17/2024 10:33 AM EST [facility] Platelets 191 130 - 400 K/mcL LAB HEMETOLOGY METHOD 04/17/2024 10:33 AM EST [facility] MPV 10.9 7.0 - 11.0 FL LAB HEMETOLOGY METHOD 04/17/2024 10:33 AM EST [facility] NRBC 0.0 <1.0 % LAB HEMETOLOGY METHOD 04/17/2024 10:33 AM EST [facility] NRBC Absolute 0.00 <0.10 K/mcL LAB HEMETOLOGY METHOD 04/17/2024 10:33 AM [facility] Blood Venous blood specimen / Unknown Venipuncture / Unknown 04/17/2024 7:30 AM EST 04/17/2024 10:07 AM EST Mookie Donovan MD LAB BLOOD ORDERABLES Final Result [facility] [address] [place] [address], documented in this encounter Visit Diagnoses Diagnosis Anemia, unspecified documented in this encounter Additional Health Concerns Infection Onset Date Last Indicated Resolved Time ESBL 04/25/2024 04/25/2024 documented as of this encounter Care Teams Perch Mender Relationship Specialty Start Date End Date Melissa Shannon MD [address] [place] [address] PCP - General Internal Medicine 04/02/13 documented as of this encounter
--- OUTSIDE RECORDS SUMMARY | 2024-09-05 13:48 | XMS_ITS | Encounter Summary ---
Author Organization [facility] [place] [address] Care Team Providers Care Lime Filter Operator Name Role Phone Melissa Shannon MD Primary Care Provider Encounter Details Date Type Department Care Team (Late st Contact Info) Description 04/26/2024 Lab Requisition [facility] - Main Lab 299 [facility] [place] [phone] Mookie Donovan MD [address] [place] [address] Anemia, unspecified; Type 2 diabetes mellitus without [...] 09/25/2024 3:30 PM EDT Ancillary Procedure [facility] Cardiology [facility] [address] [phone] 01/09/2025 10:20 AM EDT Office Visit [facility] Cardiology [facility] [address] [phone] Awais Hylton MD [address] [address] documented as of this encounter Procedures Procedure [...] LAB CHEMISTRY METHOD 04/26/2024 8:47 AM EST [facility] Blood Venous blood specimen / Unknown Venipuncture / Unknown 04/26/2024 6:34 AM EST 04/26/2024 7:53 AM EST us Mookie Donovan MD LAB BLOOD ORDERABLES Final Result [facility] [address] [place] [address], * Thyroxine free (04/26/2024 6:34 AM EST) Free T4 1.25 0.70 - 1.80 ng/dL LAB CHEMISTRY METHOD 04/26/2024 8:46 AM EST [facility] Blood Venous blood specimen / Unknown Venipuncture / Unknown 04/26/2024 6:34 AM EST 04/26/2024 7:53 AM EST us Mookie Donovan MD LAB BLOOD ORDERABLES Final Result Performing Organization Address [facility]/ZIP Co de Phone Number [facility] [address] [place] [address], [place] [phone] * (ABNORMAL) Thyroid stimulating hormone (04/26/2024 6:34 AM EST) Pathologist [facility] TSH 6.69(H) 0.40 - 4.00 mcIU/mL LAB CHEMISTRY METHOD 04/26/2024 8:48 AM EST [facility] Blood Venous blood specimen / Unknown Venipuncture / Unknown 04/26/2024 6:34 AM EST 04/26/2024 7:53 AM EST us Mookie Donovan MD LAB BLOOD ORDERABLES Final Result Performing Organization Address [facility] Co de Phone Number [facility] [address] [place] [address], [place] [phone] * (ABNORMAL) Basic metabolic panel (04/26/2024 6:34 AM EST) Pathologist [facility] Sodium 137 133 - 145 mmol/L LAB CHEMISTRY METHOD 04/26/2024 8:38 AM EST [facility] Potassium 3.7 3.5 - 5.5 mmol/L LAB CHEMISTRY METHOD 04/26/2024 8:38 AM EST [facility] Chloride 101 96 - 110 mmol/L LAB CHEMISTRY METHOD 04/26/2024 8:38 AM EST [facility] CO2 34(H) 21 - 32 mmol/L LAB CHEMISTRY METHOD 04/26/2024 8:[address] [facility] Anion Gap 2(L) 3 - 11 LAB CHEMISTRY METHOD 04/26/2024 8:[address] [facility] Glucose 133(H) 70 - 100 mg/dL LAB CHEMISTRY METHOD 04/26/2024 8:[address] [facility] BUN 15 5 - 25 mg/dL LAB CHEMISTRY METHOD 04/26/2024 8:[address] [facility] Creatinine 0.60 0.50 - 1.10 mg/dL LAB CHEMISTRY METHOD 04/26/2024 8:[address] [facility] eGFR 89 >=60 mL/min/1. 73m2 LAB CHEMISTRY METHOD 04/26/2024 8:[address] [facility] Comment:Calculation based on the??Chronic Kidney Disease Epidemiology Collaboration (CKD-EPI) equation refit??without adjustment for race. BUN/Creatinine Ratio 25.0 LAB CHEMISTRY METHOD 04/26/2024 8:[address] [facility] Calcium 8.7 8.5 - 10.5 mg/dL LAB CHEMISTRY METHOD 04/26/2024 8:[address] [facility] Blood Venous blood specimen / Unknown Venipuncture / Unknown 04/26/2024 6:34 AM EST 04/26/2024 7:53 AM EST Mookie Donovan MD LAB BLOOD ORDERABLES Final Result [facility] [address] [place] [address], * (ABNORMAL) Complete blood count (04/26/2024 6:34 AM EST) WBC 10.3 4.8 - 10.8 K/mcL LAB HEMETOLOGY METHOD 04/26/2024 8:[address] [facility] RBC 3.60(L) 3.80 - 4.80 M/mcL LAB HEMETOLOGY METHOD 04/26/2024 8:[address] [facility] Hemoglobin 9.7(L) 11.5 - 16.0 g/dL LAB HEMETOLOGY METHOD 04/26/2024 8:[address] [facility] Hematocrit 31.6(L) 35.0 - 47.0 % LAB HEMETOLOGY METHOD 04/26/2024 8:[address] [facility] MCV 88.3 79.0 - 98.0 FL LAB HEMETOLOGY METHOD 04/26/2024 8:[address] [facility] MCH 27.1 27.0 - 32.0 pcg LAB HEMETOLOGY METHOD 04/26/2024 8:[address] [facility] MCHC 30.7(L) 32.0 - 37.0 g/dL LAB HEMETOLOGY METHOD 04/26/2024 8:[address] [facility] RDW 17.0(H) 11.0 - 15.0 % LAB HEMETOLOGY METHOD 04/26/2024 8:[address] [facility] Platelets 215 130 - 400 K/mcL LAB HEMETOLOGY METHOD 04/26/2024 8:[address] [facility] MPV 10.8 7.0 - 11.0 FL LAB HEMETOLOGY METHOD 04/26/2024 8:[address] [facility] NRBC 0.0 <1.0 % LAB HEMETOLOGY METHOD 04/26/2024 8:[address] [facility] NRBC Absolute 0.00 <0.10 K/mcL LAB HEMETOLOGY METHOD 04/26/2024 8:[address] [facility] Blood Venous blood specimen / Unknown Venipuncture / Unknown 04/26/2024 6:34 AM EST 04/26/2024 7:53 AM EST us Mookei Donovan MD LAB BLOOD ORDERABLES Final Result [facility] [address] [place] [address], documented in this encounter Visit Diagnoses Diagnosis Anemia, unspecified Type 2 diabetes mellitus without complications (CMS/[facility] V24, CMS/HCC V28) documented in this encounter Additional Health Concerns Infection Onset Date Last Indicated Resolved Time ESBL 04/25/2024 04/25/2024 documented as of this encounter Care Teams Lime Filter Operator Relationship Specialty Start Date End Date Melissa Shannon MD [address] [place] [address] PCP - General Internal Medicine 04/02/13 documented as of this encounter
--- OUTSIDE RECORDS SUMMARY | 2024-09-05 13:48 | XMS_ITS | Encounter Summary ---
Author Organization Jessi [facility] [place] [address] Care Team Providers Care Crisis Intervention Specialist Name Role Phone Melissa Shannon MD Primary Care Provider Encounter Details Date Type Department Care Team (Late st Contact Info) Description 03/29/2024 Lab Requisition [facility] - Main Lab 299 [facility] [place] [address] Mookie oDnovan MD [address] [place] [address] Unspecified atrial fibrillation (CMS/HCC V24, CMS/HCC V28); [...] 09/25/2024 3:30 PM EDT Ancillary Procedure [facility] [address] [place] [phone] 01/09/2025 10:20 AM EDT Office Visit [facility] [address] [phone] Awais Hylton MD [address] [address] documented as of this encounter Procedures Procedure [...] Hold for add-ons. 03/29/2024 11:01 AM EST [facility] Comment:Auto resulted. Blood Venous blood specimen / Unknown 03/29/2024 6:51 AM EST 03/29/2024 9:08 AM EST us Mookie Donovan MD LAB BLOOD ORDERABLES Final Result [facility] [address] [place] [address], * (ABNORMAL) CBC auto differential (03/29/2024 6:51 AM EST) [facility] WBC 16.1(H) 4.8 - 10.8 K/mcL LAB HEMETOLOGY METHOD 03/29/2024 9:23 AM [facility] RBC 3.20(L) 3.80 - 4.80 M/mcL LAB HEMETOLOGY METHOD 03/29/2024 9:23 AM [facility] Hemoglobin 9.1(L) 11.5 - 16.0 g/dL LAB HEMETOLOGY METHOD 03/29/2024 9:23 AM [facility] Hematocrit 28.3(L) 35.0 - 47.0 % LAB HEMETOLOGY METHOD 03/29/2024 9:23 AM [facility] MCV 88.2 79.0 - 98.0 FL LAB HEMETOLOGY METHOD 03/29/2024 9:23 AM [facility] MCH 28.3 27.0 - 32.0 pcg LAB HEMETOLOGY METHOD 03/29/2024 9:23 AM [facility] MCHC 32.2 32.0 - 37.0 g/dL LAB HEMETOLOGY METHOD 03/29/2024 9:23 AM [facility] RDW 17.6(H) 11.0 - 15.0 % LAB HEMETOLOGY METHOD 03/29/2024 9:23 AM [facility] Platelets 482(H) 130 - 400 K/mcL LAB HEMETOLOGY METHOD 03/29/2024 9:23 AM [facility] MPV 9.2 7.0 - 11.0 FL LAB HEMETOLOGY METHOD 03/29/2024 9:23 AM [facility] NRBC 0.0 <1.0 % LAB HEMETOLOGY METHOD 03/29/2024 9:23 AM [facility] NRBC Absolute 0.00 <0.10 K/mcL LAB HEMETOLOGY METHOD 03/29/2024 9:23 AM [facility] Neutrophils Relative 82.2 % LAB HEMETOLOGY METHOD 03/29/2024 9:23 AM [facility] Lymphocytes Relative 8.3 % LAB HEMETOLOGY METHOD 03/29/2024 9:23 AM [facility] Monocytes Relative 7.4 % LAB HEMETOLOGY METHOD 03/29/2024 9:23 AM [facility] Eosinophils Relative 0.3 % LAB HEMETOLOGY METHOD 03/29/2024 9:23 AM [facility] Basophils Relative 0.2 % LAB HEMETOLOGY METHOD 03/29/2024 9:23 AM [facility] Immature Granulocytes Relative 1.6 % LAB HEMETOLOGY METHOD 03/29/2024 9:23 AM [facility] Neutrophils Absolute 13.23(H) 1.50 - 7.00 K/mcL LAB HEMETOLOGY METHOD 03/29/2024 9:23 AM [facility] Lymphocytes Absolute 1.33 1.00 - 5.00 K/mcL LAB HEMETOLOGY METHOD 03/29/2024 9:23 AM [facility] Monocytes Absolute 1.19(H) 0.20 - 1.00 K/mcL LAB HEMETOLOGY METHOD 03/29/2024 9:23 AM [facility] Eosinophils Absolute 0.05 0.00 - 0.50 K/mcL LAB HEMETOLOGY METHOD 03/29/2024 9:23 AM [facility] Basophils Absolute 0.03 0.00 - 0.20 K/mcL LAB HEMETOLOGY METHOD 03/29/2024 9:23 AM [facility] Immature Granulocytes Absolute 0.25(H) 0.00 - 0.03 K/mcL LAB HEMETOLOGY METHOD 03/29/2024 9:23 AM EST [facility] Blood Venous blood specimen / Unknown Venipuncture / Unknown 03/29/2024 6:51 AM EST 03/29/2024 8:51 AM EST us Mookie Donovan MD LAB BLOOD ORDERABLES Final Result Performing Organization Address [facility]/ZIP Co de Phone Number [facility] [address] [place] [address], [place] [phone] * Hemoglobin A1c (03/29/2024 6:51 AM EST) Pathologist [facility] Hemoglobin A1C 6.1 <6.5 % LAB CHEMISTRY METHOD 03/29/2024 11:40 AM EST [facility] Mean Bld Glu Estim. 128 mg/dL LAB CHEMISTRY METHOD 03/29/2024 11:40 AM [facility] Blood Venous blood specimen / Unknown Venipuncture / Unknown 03/29/2024 6:51 AM EST 03/29/2024 8:51 AM EST us Mookie Donovan MD LAB BLOOD ORDERABLES Final Result Performing Organization Address [facility] de Phone Number [facility] [address] [place] [address], [place] [phone] * (ABNORMAL) Comprehensive metabolic panel (03/29/2024 6:51 AM EST) Pathologist [facility] Sodium 141 133 - 145 mmol/L LAB CHEMISTRY METHOD 03/29/2024 9:50 AM EST [facility] Potassium 3.0(L) 3.5 - 5.5 mmol/L LAB CHEMISTRY METHOD 03/29/2024 9:50 AM [facility] Chloride 107 96 - 110 mmol/L LAB CHEMISTRY METHOD 03/29/2024 9:50 AM EST [facility] CO2 24 21 - 32 mmol/L LAB CHEMISTRY METHOD 03/29/2024 9:50 AM [facility] Anion Gap 10 3 - 11 LAB CHEMISTRY METHOD 03/29/2024 9:50 AM [facility] Glucose 134(H) 70 - 100 mg/dL LAB CHEMISTRY METHOD 03/29/2024 9:50 AM [facility] BUN 13 5 - 25 mg/dL LAB CHEMISTRY METHOD 03/29/2024 9:50 AM [facility] Creatinine 0.46(L) 0.50 - 1.10 mg/dL LAB CHEMISTRY METHOD 03/29/2024 9:50 AM [facility] eGFR 95 >=60 mL/min/1. 73m2 LAB CHEMISTRY METHOD 03/29/2024 9:50 AM [facility] Comment:Calculation based on the??Chronic Kidney Disease Epidemiology Collaboration (CKD-EPI) equation refit??without adjustment for race. BUN/Creatinine Ratio 28.3 LAB CHEMISTRY METHOD 03/29/2024 9:50 AM [facility] Calcium 8.4(L) 8.5 - 10.5 mg/dL LAB CHEMISTRY METHOD 03/29/2024 9:50 AM [facility] AST (SGOT) 17 10 - 42 unit/L LAB CHEMISTRY METHOD 03/29/2024 9:50 AM [facility] ALT (SGPT) 13 10 - 60 unit/L LAB CHEMISTRY METHOD 03/29/2024 9:50 AM [facility] Alkaline Phosphatase 161(H) 42 - 121 unit/L LAB CHEMISTRY METHOD 03/29/2024 9:50 AM [facility] Total Protein 5.5(L) 6.0 - 8.0 g/dL LAB CHEMISTRY METHOD 03/29/2024 9:50 AM [facility] Albumin 2.0(L) 3.2 - 5.0 g/dL LAB CHEMISTRY METHOD 03/29/2024 9:50 AM EST [facility] Total Bilirubin 0.4 0.0 - 1.4 mg/dL LAB CHEMISTRY METHOD 03/29/2024 9:50 AM EST [facility] Blood Venous blood specimen / Unknown Venipuncture / Unknown 03/29/2024 6:51 AM EST 03/29/2024 8:51 AM EST us Mookie Donovan MD LAB BLOOD ORDERABLES Final Result [facility] [address] [place] [address], documented in this encounter Visit Diagnoses Diagnosis Unspecified atrial fibrillation ([facility] V24, [facility] V28) Type 2 diabetes mellitus without complications ([facility] V24, [facility] V28) Anemia, unspecified documented in this encounter Additional Health Concerns Infection Onset Date Last Indicated Resolved Time ESBL 04/25/2024 04/25/2024 documented as of this encounter Care Teams Crisis Intervention Specialist Relationship Specialty Start Date End Date Melissa Shannon MD [address] [facility] [place] [address] PCP - General Internal Medicine 04/02/13 documented as of this encounter
== END 2024-09-05 14:21 | disposition home or self-care (01) ==
LOC: HO.HOS 13:44
PROVIDERS: PCP Internal Medicine; Visit Provider Physician Assistant
DX: Z87.81 Personal history of (healed) traumatic fracture (principal)
CPT/HCPCS: 99213; G2211

== ENCOUNTER → 2024-09-05 13:47 | Outpatient (BNV) | payer MEDICARE, MEDICAID, SELFPAY | PROVIDERS: Visit Provider Radiology Diagnostic Radiology | DX: S42.331D Displaced oblique fracture of shaft of humerus, right arm, subsequent encounter for fracture with routine healing (principal) | CPT/HCPCS: 73060 ==

== ENCOUNTER 2024-09-13 13:52 | Outpatient (AMB) | payer MEDICARE, MEDICAID, SELFPAY ==
[2024-09-13 13:59] VITALS: BP 88/60; PULSE 97; O2SAT 97
--- NOTE | 2024-09-13 13:59 | MHC.OFFVIS ---
Vital Signs 09/13/24 13:59 Height 4 ft 7 in BMI Reason not done Patient refused/unable BP 88/60 L Blood Pressure Location Lt brachial Position Sitting Pulse 97 Pulse Source Pulse Oximeter Pulse Oximetry (%) 97 Oxygen Delivery Method Room Air Intake Visit Reasons: COPD Intake Note: pt is here for follow up and is short of breath mostly when doing things, sometimes lying down causes some short of breath. Set And Exhibit Designer Required: No Allergies meperidine [Demerol] Allergy (Unknown, Verified 09/13/24 14:16) Nausea and Vomiting oxycodone Allergy (Unknown, Verified 09/13/24 14:16) Nausea and Vomiting Sulfa (Sulfonamide Antibiotics) [SULFA (SULFONAMIDE ANTIBIOTICS)] Allergy (Unknown, Verified 09/13/24 14:16) NAUSEA & VOMITING, GI upset morphine Allergy (Verified 09/13/24 14:16) Hallucinations Penicillins [PENICILLINS] Allergy (Verified 09/13/24 14:16) rash shellfish derived Allergy (Verified 09/13/24 14:16) Anaphylaxis warfarin [WARFARIN] Adverse Reaction (Severe, Verified 09/13/24 14:16) UNKNOWN aspirin [ASPIRIN] Adverse Reaction (Mild, Verified 09/13/24 14:16) gi bleed enoxaparin [From LOVENOX] Adverse Reaction (Unknown, Verified 09/13/24 14:16) INTERNAL BLEEDING heparin [HEPARIN] Adverse Reaction (Unknown, Verified 09/13/24 14:16) INTERNAL BLEEDING ibuprofen Adverse Reaction (Unknown, Verified 09/13/24 14:16) GI bleed MAGNOLIA Inhibitors Adverse Reaction (Verified 09/13/24 14:16) Angioedema Chocolate Adverse Reaction (Verified 09/13/24 14:16) Diarrhea eggs Adverse Reaction (Severe, Uncoded 09/13/24 14:16) Nausea and Vomiting Medication List - Last Reconciled 09/13/24 by Taryn Meade MD acetaminophen 1,000 mg PO Q6H PRN [Adult facial/body wipes As directed NS] [adult pull-ups (medium) As directed NS] albuterol sulfate 2.5 mg (3 mL) inhalation Q6H PRN 30 days allopurinol 100 mg PO DAILY alprazolam 0.25 mg PO DAILY PRN amiodarone 200 mg PO DAILY apixaban (Eliquis) 5 mg PO BID bedside commode (commode) Use As directed NS blood-glucose meter (FreeStyle Lite Meter kit) Check blood sugar once a day as directed docusate sodium (Colace) 100 mg PO BID PRN duloxetine 30 mg PO BID 3 months epinephrine (EpiPen) 0.3 mg (0.3 mL) IM ONCE PRN fluticasone furoate 100 mcg/actuation (Arnuity Ellipta) 1 inh inhalation DAILY 30 days fluticasone propionate 50 mcg/actuation 2 sprays intranasal DAILY furosemide 20 mg PO DAILY gabapentin (Neurontin) 100 mg PO BID 1 month [Head & foot electric bed with half side rails head and foot electric bed with 2 half side rails NS] ipratropium-albuterol 0.5 mg-3 mg(2.5 mg base)/3 mL 3 mL inhalation Q6H PRN 30 days loratadine 10 mg PO DAILY PRN losartan 50 mg PO DAILY magnesium oxide 400 mg PO BID metoprolol succinate ER 75 mg See Protocol PO DAILY 3 months montelukast 10 mg PO BEDTIME nebulizers As directed nitrofurantoin monohyd/m-cryst 100 mg 100 mg PO Q12H 10 days pantoprazole 40 mg PO DAILY@0630 polyethylene glycol 3350 (Miralax) 17 grams PO BID PRN potassium chloride ER 20 mEq PO DAILY [Re-usable/washable adult pads As directed NS] rosuvastatin 20 mg PO BEDTIME sennosides (senna) 8.6 mg PO BEDTIME Serevent Diskus (salmeterol) 1 inh inhalation BID 30 days NS sitagliptin phos-metformin 50-500 mg 1 tab PO BID 90 days [Transport wheelchair with bilateral foot rest. Use As directed] Ventolin HFA 90 mcg/actuation (albuterol sulfate) 2 puffs inhalation Q4-6H PRN NS [wheelchair with foot rest As directed] HPI HPI COPD: Details: AISHA IS 84 YEARS OLD VERY PLEASANT FEMALE. SHE HAS PAST HISTORY OF SMOKING BUT NOT ANYMORE FOR THE LAST 10 YEARS. SHE DOES HAVE MILD OBSTRUCTIVE AIRWAY DISORDER, AND NEEDS TO USE MINIMAL MEDICATION. ARNUITY ELLIPTA 1 INHALATION DAILY . SHE HAS A NEBULIZER AT HOME AND USES IPRATROPIUM-ALBUTEROL SOLUTION ONLY WHEN. SHE NEEDS FOR RESPIRATORY DISTRESS ALSO WHEN SHE GOES OUTDOORS SHE KEEPS VENTOLIN ON HAND BUT HARDLY NEEDS TO USE IT. SHE HAS PAROXYSMAL ATRIAL FIBRILLATION AND IT IS BEING CONTROLLED WITH MEDS CURRENTLY ON AMIODARONE WELL ON ELIQUIS PFSH Medical History Iron deficiency anemia History of COVID-19 History of toe fracture Hx of fracture of humerus Diastolic heart failure Lumbar back pain with radiculopathy affecting left lower extremity Mixed stress and urge urinary incontinence Osteoporosis History of compression fracture of spine Compression fracture of body of thoracic vertebra Paroxysmal atrial fibrillation Anemia Diverticulitis COPD (chronic obstructive pulmonary disease) Allergic rhinitis Multiple lipomas 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) GERD (gastroesophageal reflux disease) Deep vein thrombosis (DVT) of left lower extremity Gout Anxiety disorder Type 2 diabetes mellitus without complication, without long-term current use of insulin Hyperlipidemia Hypertension Surgical History H/O: hysterectomy History of gastric surgery Hx of hand surgery H/O local excision of skin lesion Family History Mother Mental health disorder Sister CVA (cerebral vascular accident) Daughter Brain tumor Diabetes Bipolar 1 disorder Heart abnormality Mental illness in member of household Mental health disorder Father Substance use disorder Son Mental health disorder Social History Household Members: Family Housing: House Do you presently have visiting nurse or other home services: No Alcohol intake: former Patient Tobacco Use Status: Former Tobacco user Years Smoked: 10 yrs e-Cigarette/Vaping Use: Never Used Second Hand Smoke Exposure: No Advance Directives Date on File: 07/27/21 service: No Current occupational status: retired Cognitive needs: No Hearing needs: No Vision needs: Yes Review of Systems Const All systems reviewed & are unremarkable except as noted in HPI and below Eyes Reports no additional complaints ENT Reports nasal congestion and Reports nasal discharge Card Denies chest pain, Denies irregular heart rhythm and Denies leg edema Resp Reports as per HPI GI Reports no additional complaints Reports no additional complaints Musc Reports back pain (Chronic) and Reports muscle weakness Skin/Breast Reports system reviewed and no additional complaints, except as documented Neuro Reports no additional complaints Psych Reports depression (Controlled) Physical Exam Vital Signs: Last Vital Signs Pulse 97 09/13/24 13:59 BP 88/60 L 09/13/24 13:59 Pulse Ox 97 09/13/24 13:59 Oxygen Delivery Method Room Air 09/13/24 13:59 Const General: comfortable (BUT SOMEWHAT WEAK), no acute distress, alert and awake Orientation/consciousness: patient oriented x3 HEENT Head: Yes normal to inspection General nose exam: No nasal polyps present, No nasal discharge present and Other nasal findings present (Chronic nasal congestion , mild ) Face and sinus: Yes sinuses nontender Mouth: oropharynx normal Throat: Yes posterior oropharynx normal Eyes General: appearance normal, both eyes and all related structures Neck Neck: Yes normal visual inspection, Yes no lymphadenopathy, Yes trachea midline and Yes no JVD Thyroid: Thyroid normal Chest Chest palpation & inspection: normal inspection of the chest, normal palpation of entire chest wall and no tenderness Resp Other: Breath sounds are distant on both sides with prolonged expiratory phase. On auscultation there are no wheezes or rhonchi this time. Cardio Palpation: normal PMI Rate: regular rate Rhythm: regular rhythm Heart sounds: no gallops and no murmurs GI Palpation (GI): Soft to palpation, nontender, No hepatosplenomegaly present and no masses Auscultation: normal bowel sounds Back/Spine/Pelvis Thoracic/Lumbar Spine: thoracic and lumbar spine normal to inspection and thoraco-lumbar ROM limited Skin General skin exam: no rashes or lesions noted Neuro General: patient oriented x3 and no focal motor deficits Cranial nerves: Yes CN's II-XII intact bilaterally Extrem General: Yes normal to inspection, Yes no clubbing, cyanosis or edema and Yes no calf tenderness Psych Appearance: grossly normal and well kempt Speech and movement: Normal speech and movement present Assessment & Plan Assessment & Plan (1) COPD (chronic obstructive pulmonary disease): Comment: MILD TO MODERATE CHRONIC OBSTRUCTIVE PULMONARY DISEASE. STABLE AND CONTROLLED WITH THE CURRENT MEDS. Code(s): J44.9 - Chronic obstructive pulmonary disease, unspecified Category: Medical Qualifiers: COPD type: COPD with acute exacerbation Qualified Code(s): J44.1 - Chronic obstructive pulmonary disease with (acute) exacerbation Plan: ADVISED TO CONTINUE USING ARNUITY [id number] INHALATION DAILY. USE VENTOLIN HFA 2 PUFFS Q 6 HOURS P.R.N.. WHEN OUTDOORS AND AT HOME MAY USE THE NEBULIZER WITH IPRATROPIUM-ALBUTEROL SOLUTION Q 6 HOURS P.R.N. Coding Level of Care Code Est Pt Level 3 (83174) Diagnoses Chronic obstructive pulmonary disease with acute exacerbation J44.1 COPD type: COPD with acute exacerbation
--- OUTSIDE RECORDS SUMMARY | 2024-09-13 14:00 | XMS_ITS | Clinical Summary ---
Author Organization [address] [facility] Address [address] [place] [address] Phone Care Team Providers Care Hook Loader Name Role Phone Melissa Shannon MD Primary [...] mometasone (NASONEX) 50 mcg/actuation nasal spray 1 [place] by Nasal route at bedtime. Active montelukast [...] her to speak with her PCP and/your software design manager given her recent COVID infection as well [...] they are available to me. Aortic aneurysm ([facility] V24) 08/12/2020 Overview (03/08/2024): Last Assessment & [...] berenice, ARB and diuretic. Paroxysmal atrial fibrillation ([facility] V24, [facility] V28) 08/12/2020 Overview (03/08/2024): Last Assessment & [...] 09/25/2024 3:30 PM EDT Ancillary Procedure [facility]iology [facility] [address] [phone] 01/09/2025 10:20 AM EDT Office Visit [facility] - [facility] [address] [phone] Awais Hylton MD [address] [address] Health Maintenance Due Date Last Done Comments [...] mmol/L LAB CHEMISTRY METHOD 04/26/2024 8:38 AM [facility] Potassium 3.7 3.5 - 5.5 mmol/L LAB CHEMISTRY METHOD 04/26/2024 8:38 AM [facility] Chloride 101 96 - 110 mmol/L LAB CHEMISTRY METHOD 04/26/2024 8:38 AM EST [facility] CO2 34(H) 21 - 32 mmol/L LAB CHEMISTRY METHOD 04/26/2024 8:38 AM [facility] Anion Gap 2(L) 3 - 11 LAB CHEMISTRY METHOD 04/26/2024 8:38 AM [facility] Glucose 133(H) 70 - 100 mg/dL LAB CHEMISTRY METHOD 04/26/2024 8:38 AM EST [facility] BUN 15 5 - 25 mg/dL LAB CHEMISTRY METHOD 04/26/2024 8:38 AM [facility] Creatinine 0.60 0.50 - 1.10 mg/dL LAB CHEMISTRY METHOD 04/26/2024 8:38 AM EST [facility] eGFR 89 >=60 mL/min/1. 73m2 LAB CHEMISTRY METHOD 04/26/2024 8:38 AM EST [facility] Comment:Calculation based on the??Chronic Kidney Disease Epidemiology Collaboration (CKD-EPI) equation refit??without adjustment for race. BUN/Creatinine Ratio 25.0 LAB CHEMISTRY METHOD 04/26/2024 8:38 AM EST [facility] Calcium 8.7 8.5 - 10.5 mg/dL LAB CHEMISTRY METHOD 04/26/2024 8:38 AM [facility] Blood Venous blood specimen / Unknown Venipuncture / Unknown 04/26/2024 6:34 AM EST 04/26/2024 7:53 AM EST us Mookie Donovan MD LAB BLOOD ORDERABLES Final Result [facility] [address] [place] [address], from Last 3 Months or Most Recently Relevant to Health Maintenance Additional Health Concerns Infection Onset Date Last Indicated ESBL 04/25/2024 04/25/2024 Insurance MEDICAID - [place] MEDICARE Care Teams Hook Loader Relationship Specialty Start Date End Date Melissa Shannon MD [address] [place] [address] PCP - General Internal Medicine 04/02/13
== END 2024-09-13 14:18 | disposition home or self-care (01) ==
LOC: HO.HPS 13:53
PROVIDERS: PCP Internal Medicine; Visit Provider Internal Medicine
DX: J44.1 Chronic obstructive pulmonary disease with (acute) exacerbation (principal)
CPT/HCPCS: 99213

== ENCOUNTER → 2024-09-13 13:52 | Outpatient (BNVA) | payer MEDICARE, MEDICAID, SELFPAY | PROVIDERS: PCP Internal Medicine; Visit Provider Internal Medicine | DX: J44.1 Chronic obstructive pulmonary disease with (acute) exacerbation (principal) | CPT/HCPCS: 99212 ==

== ENCOUNTER 2024-11-29 14:49 | Outpatient (REF) | payer MEDICARE, MEDICAID, SELFPAY ==
--- OUTSIDE RECORDS SUMMARY | 2024-11-30 10:41 | XMS_ITS | Encounter Summary ---
Author Organization [facility] Address [address] [place] [address] Care Team Providers Care Family Nurse Name Role Phone Melissa Shannon MD Primary Care Provider [phone] Encounter Details Date Type Department Care Team (Late Contact Info) Description 04/09/2024 Lab Requisition [facility] - Main Lab 299 [facility] [place] [phone] Mookie Donovan MD [address] [place] [id number] Anemia, unspecified Social History Tobacco Use Types [...] Description 01/09/2025 10:20 AM EDT Office Visit [facility] [address] [phone] Awais Hylton MD [address] [address] documented as of this encounter Procedures Procedure Name Priority Date/Time Associated Diagnosis Comments COMPLETE BLOOD COUNT Routine 04/10/2024 5:20 AM EST Anemia, unspecified BASIC METABOLIC PANEL Routine 04/10/2024 5:20 AM EST Anemia, unspecified documented in this encounter Results * (ABNORMAL) Basic metabolic panel (04/10/2024 5:20 AM EST) Sodium 139 133 - 145 mmol/L LAB CHEMISTRY METHOD 04/10/2024 8:03 AM [facility] Potassium 3.8 3.5 - 5.5 mmol/L LAB CHEMISTRY METHOD 04/10/2024 8:03 AM [facility] Chloride 104 96 - 110 mmol/L LAB CHEMISTRY METHOD 04/10/2024 8:03 AM [facility] CO2 31 21 - 32 mmol/L LAB CHEMISTRY METHOD 04/10/2024 8:03 AM [facility] Anion Gap 4 3 - 11 LAB CHEMISTRY METHOD 04/10/2024 8:03 AM [facility] Glucose 123(H) 70 - 100 mg/dL LAB CHEMISTRY METHOD 04/10/2024 8:03 AM [facility] BUN 11 5 - 25 mg/dL LAB CHEMISTRY METHOD 04/10/2024 8:03 AM [facility] Creatinine 0.44(L) 0.50 - 1.10 mg/dL LAB CHEMISTRY METHOD 04/10/2024 8:03 AM [facility] eGFR 96 >=60 mL/min/1. 73m2 LAB CHEMISTRY METHOD 04/10/2024 8:03 AM [facility] Comment:Calculation based on the Chronic Kidney Disease Epidemiology Collaboration (CKD-EPI) equation refit without adjustment for race. BUN/Creatinine Ratio 25.0 LAB CHEMISTRY METHOD 04/10/2024 8:03 AM [facility] Calcium 8.1(L) 8.5 - 10.5 mg/dL LAB CHEMISTRY METHOD 04/10/2024 8:03 AM [facility] Blood Venous blood specimen / Unknown Venipuncture / Unknown 04/10/2024 5:20 AM EST 04/10/2024 7:34 AM EST Mookie Donovan MD LAB BLOOD ORDERABLES Final Result [facility] [address] [place] [address], * (ABNORMAL) Complete blood count (04/10/2024 5:20 AM EST) [facility] WBC 10.3 4.8 - 10.8 K/mcL LAB HEMETOLOGY METHOD 04/10/2024 7:58 AM [facility] RBC 3.40(L) 3.80 - 4.80 M/mcL LAB HEMETOLOGY METHOD 04/10/2024 7:58 AM [facility] Hemoglobin 9.2(L) 11.5 - 16.0 g/dL LAB HEMETOLOGY METHOD 04/10/2024 7:58 AM [facility] Hematocrit 30.2(L) 35.0 - 47.0 % LAB HEMETOLOGY METHOD 04/10/2024 7:58 AM [facility] MCV 89.9 79.0 - 98.0 FL LAB HEMETOLOGY METHOD 04/10/2024 7:58 AM [facility] MCH 27.4 27.0 - 32.0 pcg LAB HEMETOLOGY METHOD 04/10/2024 7:58 AM [facility] MCHC 30.5(L) 32.0 - 37.0 g/dL LAB HEMETOLOGY METHOD 04/10/2024 7:58 AM [facility] RDW 16.9(H) 11.0 - 15.0 % LAB HEMETOLOGY METHOD 04/10/2024 7:58 AM [facility] Platelets 330 130 - 400 K/mcL LAB HEMETOLOGY METHOD 04/10/2024 7:58 AM EST [facility] MPV 10.9 7.0 - 11.0 FL LAB HEMETOLOGY METHOD 04/10/2024 7:58 AM EST [facility] NRBC 0.0 <1.0 % LAB HEMETOLOGY METHOD 04/10/2024 7:58 AM EST [facility] NRBC Absolute 0.00 <0.10 K/mcL LAB HEMETOLOGY METHOD 04/10/2024 7:58 AM EST [facility] Blood Venous blood specimen / Unknown Venipuncture / Unknown 04/10/2024 5:20 AM EST 04/10/2024 7:34 AM EST us Mookie Donovan MD LAB BLOOD ORDERABLES Final Result [facility] [address] [place] [address], documented in this encounter Visit Diagnoses Diagnosis Anemia, unspecified documented in this encounter Additional Health Concerns Infection Onset Date Last Indicated Resolved Time ESBL 04/25/2024 04/25/2024 documented as of this encounter Care Teams Family Nurse Relationship Specialty Start Date End Date Melissa Shannon MD [address] [place] [address] PCP - General Internal Medicine 04/02/13 documented as of this encounter
[2024-11-30 11:22] LABS: Resp Syncy Virus RNA Qual PCR NEGATIVE (Negative); SARS COV2 PCR INHOUSE NEGATIVE (Negative)
== END 2024-11-29 14:50 | disposition home or self-care (01) ==
LOC: HO.LNP 14:49
PROVIDERS: Physician Assistant Medical; PCP Internal Medicine; Visit Provider Internal Medicine
DX: R09.81 Nasal congestion (principal); R09.89 Other specified symptoms and signs involving the circulatory and respiratory systems; R51.9 Headache, unspecified
CPT/HCPCS: 87637; 99212

== ENCOUNTER 2024-11-29 14:49 | Outpatient (AMB) | payer MEDICARE, MEDICAID, SELFPAY ==
--- OUTSIDE RECORDS SUMMARY | 2024-11-29 14:52 | XMS_ITS | Encounter Summary ---
Author Organization [facility] Address [address] [place] [address] Care Team Providers Care Contract Analyst Name Role Phone Melissa Shannon MD Primary Care Provider [phone] Encounter Details Date Type Department Care Team (Late Contact Info) Description 04/09/[address] [facility] - Main Lab 299 [facility] [place] [phone] Mookie Donovan MD [address] [place] [phone] Anemia, unspecified Social History Tobacco Use Types [...] Department Care Team (Late Contact Info) Description 01/09/2025 10:20 AM EDT Office Visit [facility] [address] [phone] Awais Hylton MD [address] [address] documented as of this encounter Procedures Procedure Name Priority Date/Time Associated Diagnosis Comments COMPLETE BLOOD COUNT Routine 04/10/2024 5:20 AM EST Anemia, unspecified BASIC METABOLIC PANEL Routine 04/10/2024 5:20 AM EST Anemia, unspecified documented in this encounter Results * (ABNORMAL) Basic metabolic panel (04/10/2024 5:20 AM EST) Sodium 139 133 - 145 mmol/L LAB CHEMISTRY METHOD 04/10/2024 8:03 AM [facility] Potassium 3.8 3.5 - 5.5 mmol/L LAB CHEMISTRY METHOD 04/10/2024 8:03 AM [facility] Chloride 104 96 - 110 mmol/L LAB CHEMISTRY METHOD 04/10/2024 8:03 AM [facility] CO2 31 21 - 32 mmol/L LAB CHEMISTRY METHOD 04/10/2024 8:03 AM [facility] Anion Gap 4 3 - 11 LAB CHEMISTRY METHOD 04/10/2024 8:03 AM [facility] Glucose 123(H) 70 - 100 mg/dL LAB CHEMISTRY METHOD 04/10/2024 8:03 AM [facility] BUN 11 5 - 25 mg/dL LAB CHEMISTRY METHOD 04/10/2024 8:03 AM [facility] Creatinine 0.44(L) 0.50 - 1.10 mg/dL LAB CHEMISTRY METHOD 04/10/2024 8:03 AM [facility] eGFR 96 >=60 mL/min/1. 73m2 LAB CHEMISTRY METHOD 04/10/2024 8:03 AM [facility] Comment:Calculation based on the Chronic Kidney Disease Epidemiology Collaboration (CKD-EPI) equation refit without adjustment for race. BUN/Creatinine Ratio 25.0 LAB CHEMISTRY METHOD 04/10/2024 8:03 AM [facility] Calcium 8.1(L) 8.5 - 10.5 mg/dL LAB CHEMISTRY METHOD 04/10/2024 8:03 AM [facility] Blood Venous blood specimen / Unknown Venipuncture / Unknown 04/10/2024 5:20 AM EST 04/10/2024 7:34 AM EST Mookie Donovan MD LAB BLOOD ORDERABLES Final Result [facility] [address] [place] [address], * (ABNORMAL) Complete blood count (04/10/2024 5:20 AM EST) [facility] WBC 10.3 4.8 - 10.8 K/mcL LAB HEMETOLOGY METHOD 04/10/2024 7:58 AM [facility] RBC 3.40(L) 3.80 - 4.80 M/mcL LAB HEMETOLOGY METHOD 04/10/2024 7:58 AM [facility] Hemoglobin 9.2(L) 11.5 - 16.0 g/dL LAB HEMETOLOGY METHOD 04/10/2024 7:58 AM [facility] Hematocrit 30.2(L) 35.0 - 47.0 % LAB HEMETOLOGY METHOD 04/10/2024 7:58 AM [facility] MCV 89.9 79.0 - 98.0 FL LAB HEMETOLOGY METHOD 04/10/2024 7:58 AM [facility] MCH 27.4 27.0 - 32.0 pcg LAB HEMETOLOGY METHOD 04/10/2024 7:58 AM [facility] MCHC 30.5(L) 32.0 - 37.0 g/dL LAB HEMETOLOGY METHOD 04/10/2024 7:58 AM [facility] RDW 16.9(H) 11.0 - 15.0 % LAB HEMETOLOGY METHOD 04/10/2024 7:58 AM [facility] Platelets 330 130 - 400 K/mcL LAB HEMETOLOGY METHOD 04/10/2024 7:58 AM EST [facility] MPV 10.9 7.0 - 11.0 FL LAB HEMETOLOGY METHOD 04/10/2024 7:58 AM EST [facility] NRBC 0.0 <1.0 % LAB HEMETOLOGY METHOD 04/10/2024 7:58 AM EST [facility] NRBC Absolute 0.00 <0.10 K/mcL LAB HEMETOLOGY METHOD 04/10/2024 7:58 AM EST [facility] Blood Venous blood specimen / Unknown Venipuncture / Unknown 04/10/2024 5:20 AM EST 04/10/2024 7:34 AM EST us Mookie Donovan MD LAB BLOOD ORDERABLES Final Result [facility] [address] [place] [address], documented in this encounter Visit Diagnoses Diagnosis Anemia, unspecified documented in this encounter Additional Health Concerns Infection Onset Date Last Indicated Resolved Time ESBL 04/25/2024 04/25/2024 documented as of this encounter Care Teams Contract Analyst Relationship Specialty Start Date End Date Melissa Shannon MD [address] [place] [address] PCP - General Internal Medicine 04/02/13 documented as of this encounter
[2024-11-29 15:10] VITALS: BP 100/62; PULSE 96; TEMP 36.9; O2SAT 97; BMI 34.4
--- NOTE | 2024-11-29 15:10 | MHC.OFFWIV ---
Intake Vital Signs 11/29/24 15:10 Height 4 ft 7 in Weight 148 lb BMI 34.4 BP 100/62 Blood Pressure Location Lt brachial Position Sitting Pulse 96 Pulse Source Pulse Oximeter Temp 98.5 F Temp Source Oral Pulse Oximetry (%) 97 Oxygen Delivery Method Room Air Intake Visit Reasons: EP sinus congestion, headaches Patient Tobacco Use Status: Former Tobacco user [employer] Required: No Is last menstrual period known: No Post menopausal: Yes Patient : No Allergies meperidine (Demerol) Allergy (Unknown, Verified 11/29/24 15:16) Nausea and Vomiting oxycodone Allergy (Unknown, Verified 11/29/24 15:16) Nausea and Vomiting Sulfa (Sulfonamide Antibiotics) (SULFA (SULFONAMIDE ANTIBIOTICS)) Allergy (Unknown, Verified 11/29/24 15:16) NAUSEA & VOMITING, GI upset morphine Allergy (Verified 11/29/24 15:16) Hallucinations Penicillins (PENICILLINS) Allergy (Verified 11/29/24 15:16) rash shellfish derived Allergy (Verified 11/29/24 15:16) Anaphylaxis warfarin (WARFARIN) Adverse Reaction (Severe, Verified 11/29/24 15:16) UNKNOWN aspirin (ASPIRIN) Adverse Reaction (Mild, Verified 11/29/24 15:16) gi bleed enoxaparin (From LOVENOX) Adverse Reaction (Unknown, Verified 11/29/24 15:16) INTERNAL BLEEDING heparin (HEPARIN) Adverse Reaction (Unknown, Verified 11/29/24 15:16) INTERNAL BLEEDING ibuprofen Adverse Reaction (Unknown, Verified 11/29/24 15:16) GI bleed MAGNOLIA Inhibitors Adverse Reaction (Verified 11/29/24 15:16) Angioedema Chocolate Adverse Reaction (Verified 11/29/24 15:16) Diarrhea eggs Adverse Reaction (Severe, Uncoded 09/13/24 14:16) Nausea and Vomiting Do you need a note to return to daycare/school/sports/work: No HPI HPI Comments History of Present Illness Details History of Present Illness - The patient is an 84-year-old female presenting with symptoms suggestive of a sinus infection. - Sinus symptoms began 3 weeks ago, with facial pain, congestion, and headaches. - She denies ear pain but reports facial pain and congestion. - History of Chronic Obstructive Pulmonary Disease (COPD) and concern about infection exposure. - Daily nausea since previous hospitalization, attributed to medication use. - Allergic to Bactrim and penicillin, limiting antibiotic options. - She denies fever, chills, CP, SOB, abd pain, n/v/d, sick contacts, or travel. Physical Exam General: Cooperative, healthy appearing, comfortable, no acute distress and well developed Head: Normal to inspection Ears: Hearing grossly normal bilaterally. No tragus or mastoid tenderness noted. Auditory canals clear bilaterally. TM's normal, not bulging. No fluid noted. Nose: Normal external nose present. Moist mucosa. Turbinates normal bilaterally, not boggy. Face and sinus: Tenderness to palpation of the frontal and maxillary sinuses bilaterally. Neck: Normal visual inspection and Yes full ROM. No lymphadenopathy noted. Respiratory: Normal respiratory effort and able to speak in complete sentences. Clear to auscultation bilaterally Cardiovascular: Regular rate and rhythm. Normal S1 and S2 GI: Normal to inspection. Soft to palpation and nontender, nondistended. No guarding noted. 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) GERD (gastroesophageal reflux disease) Deep vein thrombosis (DVT) of left lower extremity Gout Anxiety disorder Type 2 diabetes mellitus without complication, without long-term current use of insulin Hyperlipidemia Hypertension Surgical History H/O: hysterectomy History of gastric surgery Hx of hand surgery H/O local excision of skin lesion Family History Mother Mental health disorder Sister CVA (cerebral vascular accident) Daughter Brain tumor Diabetes Bipolar 1 disorder Heart abnormality Mental illness in member of household Mental health disorder Father Substance use disorder Son Mental health disorder Social History Household Members: Family Housing: House Do you presently have visiting nurse or other home services: No Alcohol intake: former Patient Tobacco Use Status: Former Tobacco user Years Smoked: 10 yrs e-Cigarette/Vaping Use: Never Used Second Hand Smoke Exposure: No Advance Directives Date on File: 07/27/21 Patient : No service: No Current occupational status: retired Cognitive needs: No Hearing needs: No Vision needs: Yes Review of Systems Const All systems reviewed & are unremarkable except as noted in HPI and below Physical Exam Vital Signs: Last Vital Signs Temp 98.5 F 11/29/24 15:10 Pulse 96 11/29/24 15:10 BP 100/62 11/29/24 15:10 Pulse Ox 97 11/29/24 15:10 Oxygen Delivery Method Room Air 11/29/24 15:10 BMI result Body Mass Index 34.4 Assessment & Plan Assessment & Plan (1) Sinus congestion: Code(s): R09.81 - Nasal congestion Plan Most likely sinusitis vs URI vs viral illness vs covid vs flu vs RSV Plan - will order covid/flu/rsv - tylenol as needed for pain or fever - continue with flonase as prescribed - z-madeline as directed - follow up with PCP Coding Level of Care Code Est Pt Level 3 (50390) Diagnoses Sinus congestion R09.81
== END 2024-11-29 16:27 | disposition home or self-care (01) ==
PROVIDERS: PCP Internal Medicine; Visit Provider Physician Assistant Medical
DX: R09.81 Nasal congestion (principal)

== ENCOUNTER 2024-12-03 10:50 | Outpatient (REF) | payer MEDICARE, MEDICAID, SELFPAY ==
--- OUTSIDE RECORDS SUMMARY | 2024-12-03 11:33 | XMS_ITS | Encounter Summary ---
Author Organization [facility] [place] Address [address] [place] [address] Care Team Providers Care [employer] Intermediary Name Role Phone Melissa Shannon MD Primary Care Provider [phone]- [phone] Encounter Details Date Type Department Care Team (Late Contact Info) Description 04/09/2024 Lab Requisition [facility] - Main Lab 299 [facility] [place] [phone] Mookie Donovan MD [address] [place] [phone] Anemia, unspecified Social History Tobacco Use Types [...] Description 01/09/2025 10:20 AM EDT Office Visit [facility] [address] [phone] Awais Hylton MD [address] [address] documented as of this encounter Procedures Procedure [...] Final Result [facility] [address] [place] [address], * (ABNORMAL) Complete blood count (04/10/2024 5:20 AM EST) [facility] WBC 10.3 4.8 - 10.8 K/mcL LAB [...] LAB HEMETOLOGY METHOD 04/10/2024 7:58 AM EST [facility] MPV 10.9 7.0 - 11.0 FL LAB HEMETOLOGY METHOD 04/10/2024 7:58 AM EST [facility] NRBC 0.0 <1.0 % LAB HEMETOLOGY METHOD 04/10/2024 7:58 AM EST [facility] NRBC Absolute 0.00 <0.10 K/mcL LAB HEMETOLOGY METHOD 04/10/2024 7:58 AM EST [facility] Blood Venous blood specimen / Unknown Venipuncture / Unknown 04/10/2024 5:20 AM EST 04/10/2024 7:34 AM EST us Mookie Donovan MD LAB BLOOD ORDERABLES Final Result [facility] [address] [place] [address], documented in this encounter Visit Diagnoses Diagnosis Anemia, unspecified documented in this encounter Additional Health Concerns Infection Onset Date Last Indicated Resolved Time ESBL 04/25/2024 04/25/2024 documented as of this encounter Care Teams [employer] Intermediary Relationship Specialty Start Date End Date Melissa Shannon MD [address] [place] [address] PCP - General Internal Medicine 04/02/13 documented as of this encounter
[2024-12-03 13:18] LABS: MANUAL DIFF FLAG NO
[2024-12-03 13:20] LABS: Appearance Urine Hazy; Glucose Urine UA Negative (Negative); PH 5.5 (5.0-9.0); Specific Gravity - Urine >= 1.030 (1.005-1.025); UMIC TRIGGER UACC YES
[2024-12-03 13:41] LABS: UACC Culture Trigger YES
[2024-12-03 13:46] LABS: Hematocrit 34.8 % (37.0-47.0); Hemoglobin 11.4 g/dl (12.0-16.0); Imm Gran Abs Auto 0.05 X10*3/uL (0.00-0.03); Imm Gran Pct Auto 0.5 % (0.0-0.4); Lymphocytes Absolute Auto 3.9 X10*3/uL (1.2-4.9); Mean Corpuscular HGB Conc 32.8 g/dl (31.0-35.0); Mean Corpuscular Hemoglobin 31.1 pg (27.0-33.0); Mean Corpuscular Volume 95.1 fL (80.0-98.0); NRBC Abs Auto 0.000 X10*3/uL (0.0-0.012); NRBC Pct Auto 0.0 /100WBC (0.0-0.2); Platelet Count 247 X10*3/uL (160-400); Red Blood Count 3.66 X10*6/uL (4.20-5.50); White Blood Count 9.4 X10*3/uL (4.8-10.8)
[2024-12-03 13:53] LABS: Iron 64 mcg/dL (30-160); Magnesium 1.7 mg/dL (1.6-2.6); Percent Iron Saturation 23 % (15-50); Total Iron Binding Capacity 284 mcg/dL (228-428); Unsaturated Iron Binding 220 ug/dL
== END 2024-12-03 10:51 | disposition home or self-care (01) ==
LOC: HO.HMGCLDS 10:50
PROVIDERS: PCP Internal Medicine; Visit Provider Internal Medicine
DX: E83.42 Hypomagnesemia (principal); D50.9 Iron deficiency anemia, unspecified
CPT/HCPCS: 36415; 81001; 81003; 83540; 83735; 85025; 87086; 87088; 87186

== ENCOUNTER 2024-12-05 12:08 | Outpatient (AMB) | payer MEDICARE, MEDICAID, SELFPAY ==
[2024-12-05 12:13] VITALS: BP 118/88; PULSE 84; RESP 17; TEMP 36.6; O2SAT 96; BMI 34.4
--- NOTE | 2024-12-05 12:13 | A.OFFPC_ITS ---
Vital Signs 12/05/24 12:13 Height 4 ft 7 in Weight 148 lb BMI 34.4 BP 118/88 Blood Pressure Location Lt brachial Position Sitting Respiration 17 Pulse 84 Pulse Source Pulse Oximeter Temp 97.8 F Temp Source Oral Pulse Oximetry (%) 96 Oxygen Delivery Method Room Air Intake Visit Reasons: Follow up Allergies meperidine (Demerol) Allergy (Unknown, Verified 12/05/24 12:30) Nausea and Vomiting oxycodone Allergy (Unknown, Verified 12/05/24 12:30) Nausea and Vomiting Sulfa (Sulfonamide Antibiotics) (SULFA (SULFONAMIDE ANTIBIOTICS)) Allergy (Unknown, Verified 12/05/24 12:30) NAUSEA & VOMITING, GI upset morphine Allergy (Verified 12/05/24 12:30) Hallucinations Penicillins (PENICILLINS) Allergy (Verified 12/05/24 12:30) rash shellfish derived Allergy (Verified 12/05/24 12:30) Anaphylaxis warfarin (WARFARIN) Adverse Reaction (Severe, Verified 12/05/24 12:30) UNKNOWN aspirin (ASPIRIN) Adverse Reaction (Mild, Verified 12/05/24 12:30) gi bleed enoxaparin (From LOVENOX) Adverse Reaction (Unknown, Verified 12/05/24 12:30) INTERNAL BLEEDING heparin (HEPARIN) Adverse Reaction (Unknown, Verified 12/05/24 12:30) INTERNAL BLEEDING ibuprofen Adverse Reaction (Unknown, Verified 12/05/24 12:30) GI bleed MAGNOLIA Inhibitors Adverse Reaction (Verified 12/05/24 12:30) Angioedema Chocolate Adverse Reaction (Verified 12/05/24 12:30) Diarrhea eggs Adverse Reaction (Severe, Uncoded 12/05/24 12:30) Nausea and Vomiting Medication List - Last Reconciled 12/05/24 by Melissa Shannon MD acetaminophen 1,000 mg PO Q6H PRN [Adult facial/body wipes As directed NS] [adult pull-ups (medium) As directed NS] albuterol sulfate 2.5 mg (3 mL) inhalation Q6H PRN 30 days allopurinol 100 mg PO DAILY alprazolam 0.25 mg PO DAILY PRN apixaban (Eliquis) 5 mg PO BID bedside commode (commode) Use As directed NS blood-glucose meter (FreeStyle Lite Meter kit) Check blood sugar once a day as directed docusate sodium (Colace) 100 mg PO BID PRN duloxetine 30 mg PO BID 3 months epinephrine (EpiPen) 0.3 mg (0.3 mL) IM ONCE PRN ferrous sulfate (Feosol) 325 mg PO DAILY fluticasone furoate 100 mcg/actuation (Arnuity Ellipta) 1 inh PO DAILY fluticasone propionate 50 mcg/actuation 1 spray intranasal Q12H furosemide 20 mg PO DAILY gabapentin (Neurontin) 100 mg PO BID 1 month [Head & foot electric bed with half side rails head and foot electric bed with 2 half side rails NS] ipratropium-albuterol 0.5 mg-3 mg(2.5 mg base)/3 mL 3 mL inhalation Q6H PRN 30 days loratadine 10 mg PO DAILY PRN losartan 50 mg PO DAILY magnesium oxide 400 mg PO BID metoprolol succinate ER 75 mg See Protocol PO DAILY 3 months montelukast 10 mg PO BEDTIME nebulizers As directed pantoprazole 40 mg PO DAILY@0630 polyethylene glycol 3350 (Miralax) 17 grams PO BID PRN potassium chloride ER 20 mEq PO DAILY [Re-usable/washable adult pads As directed NS] rosuvastatin 20 mg PO BEDTIME Serevent Diskus (salmeterol) 1 inh inhalation BID 30 days NS sitagliptin phos-metformin 50-500 mg 1 tab PO BID 90 days [Transport wheelchair with bilateral foot rest. Use As directed] Ventolin HFA 90 mcg/actuation (albuterol sulfate) 2 puffs inhalation Q4-6H PRN NS [wheelchair with foot rest As directed] Tobacco use date assessed: 12/05/24 Fall risk assessment: 1 Fall in past year Last assessed Fall Risk: 12/05/24 Dental Screening Dental Screen Date: 12/05/24 Did you have a dental visit in the last 12 months?: No Did you have a dental problem in the last 6 months where you did not have access to dental care?: No Was dental information given to patient?: Patient declined HPI Follow up HPI Details - 84-year-old female presenting today fo r follow-up. -has history of Iron deficiency anemia: The patient has been managing iron deficiency anemia, with dietary adjustments including increased intake of green leafy vegetables and red meat. Latest CBC and iron profile showed results within normal limits - Magnesium deficiency: Previously noted magnesium deficiency has been addressed with supplementation, which aids in alleviating leg cramps - Vitamin D deficiency: The patient has been advised to take vitamin D3 supplements due to limited sun exposure, contributing to fatigue and potential bone thinning. - Hyperlipidemia: Cholesterol levels wer e checked in May and were within acceptable limits, with ongoing management involving rosuvastatin. - Fatigue: The patient reports significa nt fatigue, sleeping up to five hours during the day - Back pain and osteoporosis: The patien t experiences back pain, exacerbated by osteoporosis, limiting her mobility and requiring the use of a wheelchair for longer distances. - Diabetes mellitus: The patient's diabe sj is managed with dietary modifications, and her A1c is currently 5.9. - Gastroesophageal reflux disease (GERD) : The patient experiences GERD, managed with pantoprazole taken an hour before meals to suppress acid production. - Constipation: The patient has a histor y of constipation, previously requiring hospitalization for severe cases, and is managed with dietary fiber and hydration. - Anxiety and depression: The patient is on duloxetine for depression and anxiety, with alprazolam used as needed for acute anxiety episodes. - Insomnia: The patient struggles with i nsomnia, concurrent use of alprazolam and Benadryl, which are being adjusted to improve sleep quality. -- The patient has difficulty consuming certain foods due to the loss of teeth, impacting her nutritional intake. - Limited mobility due to back pain and osteoporosis, requiring the use of a wheelchair for longer distances. - The patient experiences fatigue and sp ends significant time in bed, affecting her activity level. - The patient has a history of constipat ion, impacting her dietary habits and requiring dietary fiber intake. 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) GERD (gastroesophageal reflux disease) Deep vein thrombosis (DVT) of left lower extremity Gout Anxiety disorder Type 2 diabetes mellitus without complication, without long-term current use of insulin Hyperlipidemia Hypertension Surgical History H/O: hysterectomy History of gastric surgery Hx of hand surgery H/O local excision of skin lesion Family History Mother Mental health disorder Sister CVA (cerebral vascular accident) Daughter Brain tumor Diabetes Bipolar 1 disorder Heart abnormality Mental illness in member of household Mental health disorder Father Substance use disorder Son Mental health disorder Social History Household Members: Family Housing: House Do you presently have visiting nurse or other home services: No Alcohol intake: former Patient Tobacco Use Status: Former Tobacco user Years Smoked: 10 yrs e-Cigarette/Vaping Use: Never Used Second Hand Smoke Exposure: No Advance Directives Date on File: 07/27/21 service: No Current occupational status: retired Cognitive needs: No Hearing needs: No Vision needs: Yes Questionnaire PHQ-9 Over the last 2 weeks, how often have you been bothered by any of the following problems? 1. Little interest or pleasure in doing things: several days 2. Feeling down, depressed, or hopeless: several days 3. Trouble falling or staying asleep, or sleeping too much: several days 4. Feeling tired or having little energy: several days 5. Poor appetite or overeating: several days 6. Feeling bad about yourself - or that you are a failure or have let yourself or your family down: not at all 7. Trouble concentrating on things, such as reading the newspaper or watching television: not at all 8. Moving or speaking so slowly that other people could have noticed. Or the opposite - being so fidgety or restless that you have been moving around a lot more than usual: not at all 9. Thoughts that you would be better off or of hurting yourself in some way: not at all Total score: 5 Depression Screening Interpretation: Positive Depression Screening Follow-up: Existing condition and In treatment Depression Screening Done: Yes 44836 - PHQ-9 Billing: Yes Source: Developed by Drs. Dg Louis, Joyce Saez, Gigi Gaytan and colleagues, with an educational bao from [employer]. Thrive Questionnaire Date Thrive assessed: 12/27/23 I am a: Patient What is your living situation today?: I have a steady place to live Within the past 12 months, did the food you bought not last and you didn't have the money to get more?: Never true Within the past 12 months, did you worry whether your food would run out before you got money to buy more?: Never true Do you have trouble paying for medicines?: No Do you have trouble getting transportation to medical appointments?: No Do you have trouble paying your heating and electricity bill?: No Do you have trouble taking care of your child, family member or friend?: No Do you have trouble with day-to-day activities such as bathing, preparing meals, shopping, managing finances, etc.?: Yes Are you currently unemployed and looking for a job?: Yes Are you interested in more education?: No Please select the resources that you would like help with: None Currently or been in a relationship where the following occur: I choose not to answer THRIVE Score: 0 AUDIT C Alcohol Use Questionnaire (AUDIT-C) 1. How often do you have a drink containing alcohol?: Never 2. How many drinks containing alcohol do you have on a typical day when you are drinking?: 1 or 2 3. How often do you have six or more drinks on one occasion?: Never Total Score: 0 KIRA-7 AMB Questionnaire KIRA-7 Date KIRA - 7 assessed: 12/27/23 Feeling nervous, anxious, or on edge: 2 = More than half the days Not being able to stop or control worryin = Several days Worrying too much about different things: 2 = More than half the days Trouble relaxin = Several days Being so restless that it is hard to sit still: 0 = Not at all Becoming easily annoyed or irritable: 1 = Several days Feeling afraid as if something awful might happen: 1 = Several days Total KIRA-7 score (0-4 normal; 5-9 mild; 10-14 moderate; 15-21 severe): 8 Source: Developed by Drs. Dg Louis, Joyce Saez, Gigi Gaytan and colleagues, with an educational bao from [employer]. Review of Systems Const All systems reviewed & are unremarkable except as noted in HPI and below Physical exam (Primary Care) Vital Signs: Last Vital Signs Temp 97.8 F 12/05/24 12:13 Pulse 84 12/05/24 12:13 Resp 17 12/05/24 12:13 BP 118/88 12/05/24 12:13 Pulse Ox 96 12/05/24 12:13 Oxygen Delivery Method Room Air 12/05/24 12:13 BMI result Body Mass Index 34.4 Tobacco/Smoking Status: Tobacco use Status Tobacco use date assessed 12/05/24 12/05/24 12:25 Patient Tobacco Use Status Former Tobacco user 12/05/24 12:14 e-Cigarette/Vaping Use Never Used 12/05/24 12:14 Depression Screening Interpretation: Positive Depression Screening Follow-up: Existing condition and In treatment Thrive Assessment: Date of Thrive Assessment Date Thrive assessed 12/27/23 12/05/24 12:14 Currently or been in a relationship where the following occur: I choose not to answer Const Other: Alert oriented x3, no acute cardiorespiratory distress noted, accompanied by daughter Nutritional Appearance: obese HENMT Ears: external ears normal General nose exam: Normal external nose present Face and sinus: Yes face symmetric Mouth: Normal oral and palatal mucosa present and moist mucous membranes Eyes General: appearance normal, both eyes and all related structures Neck Neck: Yes full ROM, Yes no lymphadenopathy and Yes supple Resp Effort & Inspection: normal respiratory effort and able to speak in complete sentences Cardio Other: S1-S2 present regular rate and rhythm GI Palpation (GI): Soft to palpation, nontender, no guarding and no masses Auscultation: normal bowel sounds General: Yes no CVA tenderness Back/Spine/Pelvis Back: no CVA tenderness and No back tenderness Skin General skin exam: no rashes or lesions noted Neuro General: tone normal and moves all extremities Gait exam (Neuro): Assistive device used Extrem General: Yes full ROM, Yes no joint enlargement, Yes no calf tenderness and Yes pedal edema Psych Appearance: grossly normal and well kempt Mental Status: mental status grossly normal Speech and movement: Normal speech and movement present Affect: normal affect Results Reviewed Results Reviewed: Name: Joyce Waddell I Age/Sex: 84/F : 1940 Unit#: [id number] Attend Dr: Melissa Shannon MD Re12/03/24 Status: DEP REF Location: [facility] Disch: SPEC : [id number] CHRISTEL: 12/03/24 STATUS: COMP REQ : [id number] RECD: 12/03/24-[address]: Melissa Shannon MD COMP: 12/03/24 ENTERED: 12/03/[address]: ORDERED: CBC Auto Diff Test Result Flag Reference WBC 9.4 4.8-10.8 X10*3/uL RBC 3.66 L 4.20-5.50 X10*6/uL HGB 11.4 L 12.0-16.0 g/dl HCT 34.8 L 37.0-47.0 % MCV 95.1 80.0-98.0 fL MCH 31.1 27.0-33.0 pg MCHC 32.8 31.0-35.0 g/dl RDW 17.4 H 11.0-16.0 % PLT 247 160-400 X10*3/uL MPV 11.8 9.4-12.3 fL Neut Pct Auto 49.6 45-73 % ImGran Pct Auto 0.5 H 0.0-0.4 % Lymp Pct Auto 41.3 H 20-40 % [place] Pct Auto 6.1 2-11 % Eos Pct Auto 2.0 0-4 % Baso Pct Auto 0.5 0-2 % NRBC Pct Auto 0.0 0.0-0.2 /100WBC ANC Neut Abs # 4.7 2.0-8.3 x10*3/uL ImGran Abs Auto 0.05 H 0.00-0.03 X10*3/uL Lymph Abs Auto 3.9 1.2-4.9 X10*3/uL [place] Abs Auto 0.6 0.1-1.2 X10*3/uL Eos Abs Auto 0.2 0.0-0.4 X10*3/uL Baso Abs Auto 0.1 0.0-0.2 X10*3/uL NRBC Abs Auto 0.000 0.0-0.012 X10*3/uL Name: Joyce Waddell I Age/Sex: 84/F : 1940 Unit#: [id number] Attend Dr: Melissa Shannon MD Re12/03/24 Status: DEP REF Location: [facility] Disch: SPEC : [id number] CHRISTEL: 12/03/24 STATUS: COMP REQ : [id number] RECD: 12/03/24-[address]: Melissa Shannon MD COMP: 12/03/24 ENTERED: 12/03/[address]: ORDERED: MG, IRON PROF Test Result Flag Reference Magnesium 1.7 1.6-2.6 mg/dL Iron 64 30-160 mcg/dL TIBC 284 228-428 mcg/dL Saturation 23 15-50 % UIBC 220 ug/dL Coding Level of Care Code Est Pt Level 4 (37910) Complex EM visit Add On G2211 Diagnoses Essential hypertension I10 Hypertension type: essential hypertension Pure hypercholesterolemia E78.00 Hyperlipidemia type: pure hypercholesterolemia Type 2 diabetes mellitus without complication, without long-term current use of insulin E11.9 Gout of multiple sites, unspecified cause, unspecified chronicity M10.9 Gout site: multiple sites Gout etiology: unspecified cause Chronicity: unspecified GERD (gastroesophageal reflux disease) K21.9 Seasonal allergic rhinitis, unspecified trigger J30.2 Allergic rhinitis trigger: unspecified Allergic rhinitis seasonality: seasonal Paroxysmal atrial fibrillation I48.0 Generalized weakness R53.1 Additional Codes PHQ-9 - 64420 - PHQ-9 Billing: Yes ([id number]) Assessment & Plan Assessment & Plan (1) Hypertension: Code(s): I10 - Essential (primary) hypertension Category: Medical Qualifiers: Hypertension type: essential hypertension Qualified Code(s): I10 - Essential (primary) hypertension (2) Hyperlipidemia: Code(s): E78.5 - Hyperlipidemia, unspecified Category: Medical Qualifiers: Hyperlipidemia type: pure hypercholesterolemia Qualified Code(s): E78. 00 - Pure hypercholesterolemia, unspecified (3) Type 2 diabetes mellitus without complication, without long-term current use of insulin: Code(s): E11.9 - Type 2 diabetes mellitus without complications Category: Medical (4) Gout: Code(s): M10.9 - Gout, unspecified Category: Medical Qualifiers: Gout site: multiple sites Gout etiology: unspecified cause Chronicity: unspecified Qualified Code(s): M10.9 - Gout, unspecified (5) GERD (gastroesophageal reflux disease): Code(s): K21.9 - Gastro-esophageal reflux disease without esophagitis Category: Medical (6) Allergic rhinitis: Comment: Chronic , controlled with meds . Code(s): J30.9 - Allergic rhinitis, unspecified Category: Medical Qualifiers: Allergic rhinitis trigger: unspecified Allergic rhinitis seasonality: seasonal Qualified Code(s): J30.2 - Other seasonal allergic rhinitis (7) Paroxysmal atrial fibrillation: Code(s): I48.0 - Paroxysmal atrial fibrillation Category: Medical (8) Generalized weakness: Code(s): R53.1 - Weakness Category: Medical Plan - Labs: Iron levels are now normal; magnesium levels are normal; vitamin D levels are low. - Labs: Cholesterol levels checked in May were within acceptable limits. - Labs: A1c is 5.9, indicating good diabetes control. The patient will continue dietary adjustments to manage iron deficiency anemia and magnesium deficiency, with an emphasis on consuming green leafy vegetables and red meat. Vitamin D supplementation is recommended due to limited sun exposure, which contributes to fatigue and potential bone thinning. For hyperlipidemia, the patient will continue taking rosuvastatin, with cholesterol levels to be monitored regularly. . Diabetes mellitus controlled with hemoglobin A1c at 5.9%. will continue with dietary modificationsl. Gastroesophageal reflux disease will be managed with pantoprazole, taken an hour before meals to suppress acid production. Constipation management will include dietary fiber and hydration to prevent severe cases requiring hospitalization. Anxiety and depression managed with duloxetine, and alprazolam will be used as needed for acute anxiety episodes. Insomnia management will involve adjusting the use of alprazolam and Benadryl to improve sleep quality. Patient was informed and verbally consented to the use of an ambient scribe for clinic note documentation during this visit. Orders: Orders Comprehensive [place]. Panel Fast 02/23/25 E11.9 - Type 2 diabetes mellitus without complications, E78.00 - Pure hypercholesterolemia, unspecified, I10 - Essential (primary) hypertension, I48.0 - Paroxysmal atrial fibrillation, J30.9 - Allergic rhinitis, unspecified, K21.9 - Gastro-esophageal reflux disease without esophagitis, M10.9 - Gout, unspecified, M81.0 - Age-related osteoporosis without current pathological fracture, R53.1 - Weakness IRON PROFILE 02/23/25 E11.9 - Type 2 diabetes mellitus without complications, E78.00 - Pure hypercholesterolemia, unspecified, I10 - Essential (primary) hypertension, I48.0 - Paroxysmal atrial fibrillation, J30.9 - Allergic rhinitis, unspecified, K21.9 - Gastro-esophageal reflux disease without esophagitis, M10.9 - Gout, unspecified, M81.0 - Age-related osteoporosis without current pathological fracture, R53.1 - Weakness Vitamin B12 and Folate 02/23/25 E11.9 - Type 2 diabetes mellitus without complications, E78.00 - Pure hypercholesterolemia, unspecified, I10 - Essential (primary) hypertension, I48.0 - Paroxysmal atrial fibrillation, J30.9 - Allergic rhinitis, unspecified, K21.9 - Gastro-esophageal reflux disease without e sophagitis, M10.9 - Gout, unspecified, M81.0 - Age-related osteoporosis without current pathological fracture, R53.1 - Weakness Magnesium 02/23/25 E11.9 - Type 2 diabetes mellitus without complications, E78.00 - Pure hypercholesterolemia, unspecified, I10 - Essential (primary) hypertension, I48.0 - Paroxysmal atrial fibrillation, J30.9 - Allergic rhinitis, unspecified, K21.9 - Gastro-esophageal reflux disease without esophagitis, M10.9 - Gout, unspecified, M81.0 - Age-related osteoporosis without current pathological fracture, R53.1 - Weakness Lipid Panel 02/23/25 E11.9 - Type 2 diabetes mellitus without complications, E78.00 - Pure hypercholesterolemia, unspecified, I10 - Essential (primary) hypertension, I48.0 - Paroxysmal atrial fibrillation, J30.9 - Allergic rhinitis, unspecified, K21.9 - Gastro-esophageal reflux disease without esophagitis, M10.9 - Gout, unspecified, M81.0 - Age-related osteoporosis without current pathological fracture, R53.1 - Weakness Complete Blood Count Auto Diff 02/23/25 E11.9 - Type 2 diabetes mellitus without complications, E78.00 - Pure hypercholesterolemia, unspecified, I10 - Essential (primary) hypertension, I48.0 - Paroxysmal atrial fibrillation, J30.9 - Allergic rhinitis, unspecified, K21.9 - Gastro-esophageal reflux disease without esophagitis, M10.9 - Gout, unspecified, M81.0 - Age-related osteoporosis without current pathological fracture, R53.1 - Weakness Vitamin D 25-OH Total 02/23/25 E11.9 - Type 2 diabetes mellitus without com plications, E78.00 - Pure hypercholesterolemia, unspecified, I10 - Essential (primary) hypertension, I48.0 - Paroxysmal atrial fibrillation, J30.9 - Allergic rhinitis, unspecified, K21.9 - Gastro-esophageal reflux disease without esophagitis, M10.9 - Gout, unspecified, M81.0 - Age-related osteoporosis without current pathological fracture, R53.1 - Weakness Medications: Refilled alprazolam 0.25 mg PO DAILY PRN 30 tabs 0RF only for ACUTE anxiety attacks
--- OUTSIDE RECORDS SUMMARY | 2024-12-05 12:51 | XMS_ITS | Encounter Summary ---
Author Organization [facility] Address [address] [place] [address] Care Team Providers Care Tar Chaser Name Role Phone Melissa Shannon MD Primary Care Provider [phone]- [phone] Encounter Details Date Type Department Care Team (Late Contact Info) Description 04/09/2024 Lab Requisition [facility] - Main Lab 299 [facility] [place] [phone] Mookie Donovan MD [address] [place] [id number] Anemia, unspecified Social History Tobacco Use Types [...] Description 01/09/2025 10:20 AM EDT Office Visit [facility] [address] [phone] Awais Hylton MD [address] [address] documented as of this encounter Procedures Procedure Name Priority Date/Time Associated Diagnosis Comments COMPLETE BLOOD COUNT Routine 04/10/2024 5:20 AM EST Anemia, unspecified BASIC METABOLIC PANEL Routine 04/10/2024 5:20 AM EST Anemia, unspecified documented in this encounter Results * (ABNORMAL) Basic metabolic panel (04/10/2024 5:20 AM EST) Sodium 139 133 - 145 mmol/L LAB CHEMISTRY METHOD 04/10/2024 8:[address] [facility] Potassium 3.8 3.5 - 5.5 mmol/L LAB CHEMISTRY METHOD 04/10/2024 8:[address] [facility] Chloride 104 96 - 110 mmol/L LAB CHEMISTRY METHOD 04/10/2024 8:[address] [facility] CO2 31 21 - 32 mmol/L LAB CHEMISTRY METHOD 04/10/2024 8:[address] [facility] Anion Gap 4 3 - 11 LAB CHEMISTRY METHOD 04/10/2024 8:[address] [facility] Glucose 123(H) 70 - 100 mg/dL LAB CHEMISTRY METHOD 04/10/2024 8:[address] [facility] BUN 11 5 - 25 mg/dL LAB CHEMISTRY METHOD 04/10/2024 8:[address] [facility] Creatinine 0.44(L) 0.50 - 1.10 mg/dL LAB CHEMISTRY METHOD 04/10/2024 8:[address] [facility] eGFR 96 >=60 mL/min/1. 73m2 LAB CHEMISTRY METHOD 04/10/2024 8:[address] [facility] Comment:Calculation based on the Chronic Kidney Disease Epidemiology Collaboration (CKD-EPI) equation refit without adjustment for race. BUN/Creatinine Ratio 25.0 LAB CHEMISTRY METHOD 04/10/2024 8:[address] [facility] Calcium 8.1(L) 8.5 - 10.5 mg/dL LAB CHEMISTRY METHOD 04/10/2024 8:[address] [facility] Blood Venous blood specimen / Unknown Venipuncture / Unknown 04/10/2024 5:20 AM EST 04/10/2024 7:34 AM EST Mookie Donovan MD LAB BLOOD ORDERABLES Final Result [facility] [address] [place] [address], * (ABNORMAL) Complete blood count (04/10/2024 5:20 AM EST) [facility] WBC 10.3 4.8 - 10.8 K/mcL LAB HEMETOLOGY METHOD 04/10/2024 7:[address] [facility] RBC 3.40(L) 3.80 - 4.80 M/mcL LAB HEMETOLOGY METHOD 04/10/2024 7:[address] [facility] Hemoglobin 9.2(L) 11.5 - 16.0 g/dL LAB HEMETOLOGY METHOD 04/10/2024 7:[address] [facility] Hematocrit 30.2(L) 35.0 - 47.0 % LAB HEMETOLOGY METHOD 04/10/2024 7:[address] [facility] MCV 89.9 79.0 - 98.0 FL LAB HEMETOLOGY METHOD 04/10/2024 7:[address] [facility] MCH 27.4 27.0 - 32.0 pcg LAB HEMETOLOGY METHOD 04/10/2024 7:[address] [facility] MCHC 30.5(L) 32.0 - 37.0 g/dL LAB HEMETOLOGY METHOD 04/10/2024 7:[address] [facility] RDW 16.9(H) 11.0 - 15.0 % LAB HEMETOLOGY METHOD 04/10/2024 7:[address] [facility] Platelets 330 130 - 400 K/mcL LAB HEMETOLOGY METHOD 04/10/2024 7:58 AM EST [facility] MPV 10.9 7.0 - 11.0 FL LAB HEMETOLOGY METHOD 04/10/2024 7:58 AM EST [facility] NRBC 0.0 <1.0 % LAB HEMETOLOGY METHOD 04/10/2024 7:58 AM EST [facility] NRBC Absolute 0.00 <0.10 K/mcL LAB HEMETOLOGY METHOD 04/10/2024 7:58 AM EST [facility] Blood Venous blood specimen / Unknown Venipuncture / Unknown 04/10/2024 5:20 AM EST 04/10/2024 7:34 AM EST us Mookie Donovan MD LAB BLOOD ORDERABLES Final Result [facility] [address] [place] [address], documented in this encounter Visit Diagnoses Diagnosis Anemia, unspecified documented in this encounter Additional Health Concerns Infection Onset Date Last Indicated Resolved Time ESBL 04/25/2024 04/25/2024 documented as of this encounter Care Teams Tar Chaser Relationship Specialty Start Date End Date Melissa Shannon MD [address] [place] [address] PCP - General Internal Medicine 04/02/13 documented as of this encounter
== END 2024-12-05 13:05 | disposition home or self-care (01) ==
LOC: HO.HMCC 12:08
PROVIDERS: Visit Provider Internal Medicine
DX: I10 Essential (primary) hypertension (principal); E78.00 Pure hypercholesterolemia, unspecified; E11.9 Type 2 diabetes mellitus without complications; M10.9 Gout, unspecified; K21.9 Gastro-esophageal reflux disease without esophagitis; J30.2 Other seasonal allergic rhinitis; I48.0 Paroxysmal atrial fibrillation; R53.1 Weakness

== ENCOUNTER → 2024-12-05 12:08 | Outpatient (BNVA) | payer MEDICARE, MEDICAID, SELFPAY | PROVIDERS: Visit Provider Internal Medicine | DX: I10 Essential (primary) hypertension (principal); E78.00 Pure hypercholesterolemia, unspecified; E11.9 Type 2 diabetes mellitus without complications; M10.9 Gout, unspecified; K21.9 Gastro-esophageal reflux disease without esophagitis; J30.2 Other seasonal allergic rhinitis; I48.0 Paroxysmal atrial fibrillation; R53.1 Weakness | CPT/HCPCS: 96127; 99212 ==

== ENCOUNTER 2025-01-28 10:59 | Outpatient (AMB) | payer MEDICARE, MEDICAID, SELFPAY ==
--- NOTE | 2025-01-28 12:09 | MHC.OFFWIV ---
Intake Vital Signs 01/28/25 12:10 Height 4 ft 7 in BMI Reason not done Patient refused/unable BP 106/74 Blood Pressure Location Lt brachial Position Sitting Pulse 98 Pulse Source Pulse Oximeter Temp 97.8 F Temp Source Oral Pulse Oximetry (%) 96 Intake Visit Reasons: ep sick upper respirtory Patient Tobacco Use Status: Former Tobacco user Allergies meperidine (Demerol) Allergy (Unknown, Verified 01/28/25 12:12) Nausea and Vomiting oxycodone Allergy (Unknown, Verified 01/28/25 12:12) Nausea and Vomiting Sulfa (Sulfonamide Antibiotics) (SULFA (SULFONAMIDE ANTIBIOTICS)) Allergy (Unknown, Verified 01/28/25 12:12) NAUSEA & VOMITING, GI upset morphine Allergy (Verified 01/28/25 12:12) Hallucinations Penicillins (PENICILLINS) Allergy (Verified 01/28/25 12:12) rash shellfish derived Allergy (Verified 01/28/25 12:12) Anaphylaxis warfarin (WARFARIN) Adverse Reaction (Severe, Verified 01/28/25 12:12) UNKNOWN aspirin (ASPIRIN) Adverse Reaction (Mild, Verified 01/28/25 12:12) gi bleed enoxaparin (From LOVENOX) Adverse Reaction (Unknown, Verified 01/28/25 12:12) INTERNAL BLEEDING heparin (HEPARIN) Adverse Reaction (Unknown, Verified 01/28/25 12:12) INTERNAL BLEEDING ibuprofen Adverse Reaction (Unknown, Verified 01/28/25 12:12) GI bleed MAGNOLIA Inhibitors Adverse Reaction (Verified 01/28/25 12:12) Angioedema Chocolate Adverse Reaction (Verified 01/28/25 12:12) Diarrhea eggs Adverse Reaction (Severe, Uncoded 12/05/24 12:30) Nausea and Vomiting Do you need a note to return to daycare/school/sports/work: No HPI HPI Comments History of Present Illness Details History - The patient is an 85-year-old female presenting with a persistent cough and concerns related to COPD management. - The patient reports a persistent cough lasting several weeks, which worsens at night and causes a choking sensation. - She has a history of COPD and experiences chronic shortness of breath, which is sometimes more pronounced than usual. - Previous treatment with azithromycin (Z-Deondre) was ineffective, and no pneumonia was detected on prior evaluations. - The patient experiences balance issues and reports difficulty walking straight. - She has a runny nose but denies any colored sputum production. - She denies fever, chills, CP, SOB, abd pain, n/v/d, ear pain, sore throat, weakness, or fatigue. Physical Exam General: Cooperative, healthy appearing, comfortable and no acute distress Orientation/consciousness: Patient oriented x3 Limitations: No limitations Head: Normal to inspection Ears: Hearing grossly normal bilaterally, external ears normal and TM's normal bilaterally Nose: Runny nose constantly Face and sinus: Sinuses nontender to palpation. Mouth: Normal oral and palatal mucosa present and moist mucous membranes noted. Throat: Tonsils normal. Uvula is midline. Posterior oropharynx with erythema and no exudates. Eyes: Appearance normal, both eyes and all related structures Neck: Normal visual inspection, full ROM. No lymphadenopathy noted. Respiratory: Clear to auscultation bilaterally. Normal respiratory effort, able to speak in complete sentences. No respiratory distress, not tachypneic, no tripod positioning and no use of accessory muscles. No wheezing noted. Cardiovascular: Regular rate and rhythm. Normal S1 and S2 Skin: No rashes or lesions noted Patient was informed and verbally consented to the use of an ambient scribe for clinic note documentation during this visit REPLACED BY [facility] Medical History Iron deficiency anemia History of COVID-19 History of toe fracture Hx of fracture of humerus Diastolic heart failure Lumbar back pain with radiculopathy affecting left lower extremity Mixed stress and urge urinary incontinence Osteoporosis History of compression fracture of spine Compression fracture of body of thoracic vertebra Paroxysmal atrial fibrillation Anemia Diverticulitis COPD (chronic obstructive pulmonary disease) Allergic rhinitis Multiple lipomas 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) GERD (gastroesophageal reflux disease) Deep vein thrombosis (DVT) of left lower extremity Gout Anxiety disorder Type 2 diabetes mellitus without complication, without long-term current use of insulin Hyperlipidemia Hypertension Surgical History H/O: hysterectomy History of gastric surgery Hx of hand surgery H/O local excision of skin lesion Family History Mother Mental health disorder Sister CVA (cerebral vascular accident) Daughter Brain tumor Diabetes Bipolar 1 disorder Heart abnormality Mental illness in member of household Mental health disorder Father Substance use disorder Son Mental health disorder Social History Household Members: Family Housing: House Do you presently have visiting nurse or other home services: No Alcohol intake: former Patient Tobacco Use Status: Former Tobacco user Years Smoked: 10 yrs e-Cigarette/Vaping Use: Never Used Second Hand Smoke Exposure: No Advance Directives Date on File: 07/27/21 service: No Current occupational status: retired Cognitive needs: No Hearing needs: No Vision needs: Yes Review of Systems Const All systems reviewed & are unremarkable except as noted in HPI and below Physical Exam Vital Signs: Last Vital Signs Temp 97.8 F 01/28/25 12:10 Pulse 98 01/28/25 12:10 BP 106/74 01/28/25 12:10 Pulse Ox 96 01/28/25 12:10 Results Reviewed Results Reviewed: will review the CXR in the office Assessment & Plan Assessment & Plan (1) Cough: Code(s): R05.9 - Cough, unspecified Qualifiers: Cough type: acute Qualified Code(s): R05.1 - Acute cough Plan Most likely URI vs covid vs CAP vs flu vs RSV vs viral illness plan - Prescribed a different antibiotic for seven days to address the persistent cough. - Initiated prednisone therapy to manage inflammation and improve breathing. - Ordered a chest x-ray to rule out any underlying pneumonia or other complications. - Prescribed cough medicine to alleviate symptoms. - tylenol or motrin as needed for pain or fever - will call with results - follow up with PCP Orders: Orders XR chest 2V Today R05.9 - Cough, unspecified Medications: New prednisone 40 mg (2 x 20 mg) PO DAILY 10 tabs 0RF 5 days benzonatate 100 mg PO bid-tid PRN 21 caps 0RF Cough 7 days doxycycline hyclate 100 mg PO BID 14 tabs 0RF Coding Level of Care Code Est Pt Level 4 (34312) Diagnoses Acute cough R05.1 Cough type: acute
[2025-01-28 12:10] VITALS: BP 106/74; PULSE 98; TEMP 36.6; O2SAT 96
--- OUTSIDE RECORDS SUMMARY | 2025-01-28 13:20 | XMS_ITS | Encounter Summary ---
Author Organization [facility] Address [address] [place] [address] Care Team Providers Care Pocket Setter Name Role Phone Melissa Shannon MD Primary Care Provider [phone]- [phone] Encounter Details Date Type Department Care Team (Late st Contact Info) Description 04/02/2024 Lab Requisition [facility] - Main Lab [address] [facility] [place] [address] Mookie Donovan MD [address] [place] [address] Anemia, unspecified Social History Tobacco Use Types [...] as of this encounter Plan of Treatment Not on file documented as of this encounter Procedures Procedure Name Priority Date/Time Associated Diagnosis Comments MAGNESIUM Routine 04/03/2024 9:41 AM EST Anemia, unspecified COMPLETE BLOOD COUNT Routine 04/03/2024 8:41 AM EST Anemia, unspecified documented in this encounter Results * (ABNORMAL) Magnesium (04/03/2024 9:41 AM EST) Magnesium 1.5(L) 1.9 - 2.6 mg/dL LAB CHEMISTRY METHOD 04/03/2024 12:21 PM [facility] Blood Venous blood specimen / Unknown Venipuncture / Unknown 04/03/2024 9:41 AM EST 04/03/2024 10:44 AM EST Mookie Donovan MD LAB BLOOD ORDERABLES Final Result [facility] [address] [place] [address], * (ABNORMAL) Complete blood count (04/03/2024 8:41 AM EST) WBC 12.7(H) 4.8 - 10.8 K/mcL LAB HEMETOLOGY METHOD 04/03/2024 11:05 AM [facility] RBC 3.30(L) 3.80 - 4.80 M/mcL LAB HEMETOLOGY METHOD 04/03/2024 11:05 AM [facility] Hemoglobin 9.8(L) 11.5 - 16.0 g/dL LAB HEMETOLOGY METHOD 04/03/2024 11:05 AM [facility] Hematocrit 29.3(L) 35.0 - 47.0 % LAB HEMETOLOGY METHOD 04/03/2024 11:05 AM [facility] MCV 88.5 79.0 - 98.0 FL LAB HEMETOLOGY METHOD 04/03/2024 11:05 AM [facility] MCH 29.6 27.0 - 32.0 pcg LAB HEMETOLOGY METHOD 04/03/2024 11:05 AM [facility] MCHC 33.4 32.0 - 37.0 g/dL LAB HEMETOLOGY METHOD 04/03/2024 11:05 AM [facility] RDW 17.3(H) 11.0 - 15.0 % LAB HEMETOLOGY METHOD 04/03/2024 11:05 AM EST [facility] Platelets 565(H) 130 - 400 K/mcL LAB HEMETOLOGY METHOD 04/03/2024 11:05 AM EST [facility] MPV 9.8 7.0 - 11.0 FL LAB HEMETOLOGY METHOD 04/03/2024 11:05 AM EST [facility] NRBC 0.0 <1.0 % LAB HEMETOLOGY METHOD 04/03/2024 11:05 AM EST [facility] NRBC Absolute 0.00 <0.10 K/mcL LAB HEMETOLOGY METHOD 04/03/2024 11:05 AM [facility] Blood Venous blood specimen / Unknown Venipuncture / Unknown 04/03/2024 8:41 AM EST 04/03/2024 10:46 AM EST us Mookie Donovan MD LAB BLOOD ORDERABLES Final Result [facility] [address] [place] [address], documented in this encounter Visit Diagnoses Diagnosis Anemia, unspecified documented in this encounter Additional Health Concerns Infection Onset Date Last Indicated Resolved Time ESBL 04/25/2024 04/25/2024 documented as of this encounter Care Teams Pocket Setter Relationship Specialty Start Date End Date Melissa Shannon MD [address] [place] [address] PCP - General Internal Medicine 04/02/13 documented as of this encounter
--- OUTSIDE RECORDS SUMMARY | 2025-01-28 13:20 | XMS_ITS | Encounter Summary ---
Author Organization [facility] Address [address] [place] [address] Care Team Providers Care Rn Visiting Name Role Phone Melissa Shannon MD Primary Care Provider [phone]- [phone] Encounter Details Date Type Department Care Team (Late st Contact Info) Description 04/16/2024 Lab Requisition [facility] - Main Lab [address] [facility] [place] [address] Mookie Donovan MD [address] [place] [address] Anemia, unspecified Social History Tobacco Use Types [...] mmol/L LAB CHEMISTRY METHOD 04/17/2024 10:43 AM [facility] Potassium 4.1 3.5 - 5.5 mmol/L LAB CHEMISTRY METHOD 04/17/2024 10:43 AM [facility] Chloride 95(L) 96 - 110 mmol/L LAB CHEMISTRY METHOD 04/17/2024 10:43 AM [facility] CO2 28 21 - 32 mmol/L LAB CHEMISTRY METHOD 04/17/2024 10:43 AM [facility] Anion Gap 10 3 - 11 LAB CHEMISTRY METHOD 04/17/2024 10:43 AM [facility] Glucose 126(H) 70 - 100 mg/dL LAB CHEMISTRY METHOD 04/17/2024 10:43 AM [facility] BUN 10 5 - 25 mg/dL LAB CHEMISTRY METHOD 04/17/2024 10:43 AM [facility] Creatinine 0.59 0.50 - 1.10 mg/dL LAB CHEMISTRY METHOD 04/17/2024 10:43 AM [facility] eGFR 90 >=60 mL/min/1. 73m2 LAB CHEMISTRY METHOD 04/17/2024 10:43 AM [facility] Comment:Calculation based on the Chronic Kidney Disease Epidemiology Collaboration (CKD-EPI) equation refit without adjustment for race. BUN/Creatinine Ratio 16.9 LAB CHEMISTRY METHOD 04/17/2024 10:43 AM [facility] Calcium 8.8 8.5 - 10.5 mg/dL LAB CHEMISTRY METHOD 04/17/2024 10:43 AM [facility] Blood Venous blood specimen / Unknown Venipuncture / Unknown 04/17/2024 7:30 AM EST 04/17/2024 10:07 AM EST us Mookie Donovan MD LAB BLOOD ORDERABLES Final Result [facility] [address] [facility] [place] [address], * (ABNORMAL) Complete blood count (04/17/2024 7:30 AM EST) [facility] WBC 10.2 4.8 - 10.8 K/mcL LAB HEMETOLOGY METHOD 04/17/2024 10:33 AM [facility] RBC 3.70(L) 3.80 - 4.80 M/mcL LAB HEMETOLOGY METHOD 04/17/2024 10:33 AM [facility] Hemoglobin 10.0(L) 11.5 - 16.0 g/dL LAB HEMETOLOGY METHOD 04/17/2024 10:33 AM [facility] Hematocrit 32.0(L) 35.0 - 47.0 % LAB HEMETOLOGY METHOD 04/17/2024 10:33 AM [facility] MCV 87.2 79.0 - 98.0 FL LAB HEMETOLOGY METHOD 04/17/2024 10:33 AM [facility] MCH 27.2 27.0 - 32.0 pcg LAB HEMETOLOGY METHOD 04/17/2024 10:33 AM [facility] MCHC 31.3(L) 32.0 - 37.0 g/dL LAB HEMETOLOGY METHOD 04/17/2024 10:33 AM [facility] RDW 16.4(H) 11.0 - 15.0 % LAB HEMETOLOGY METHOD 04/17/2024 10:33 AM [facility] Platelets 191 130 - 400 K/mcL LAB HEMETOLOGY METHOD 04/17/2024 10:33 AM [facility] MPV 10.9 7.0 - 11.0 FL LAB HEMETOLOGY METHOD 04/17/2024 10:33 AM [facility] NRBC 0.0 <1.0 % LAB HEMETOLOGY METHOD 04/17/2024 10:33 AM EST [facility] NRBC Absolute 0.00 <0.10 [facility] HEMETOLOGY METHOD 04/17/2024 10:33 AM EST [facility] Blood Venous blood specimen / Unknown Venipuncture / Unknown 04/17/2024 7:30 AM EST 04/17/2024 10:07 AM EST us Mookie Donovan MD LAB BLOOD ORDERABLES Final Result [facility] [address] [place] [address], documented in this encounter Visit Diagnoses Diagnosis Anemia, unspecified documented in this encounter Additional Health Concerns Infection Onset Date Last Indicated Resolved Time ESBL 04/25/2024 04/25/2024 documented as of this encounter Care Teams Rn Visiting Relationship Specialty Start Date End Date Melissa Shannon MD [address] [place] [address] PCP - General Internal Medicine 04/02/13 documented as of this encounter
--- OUTSIDE RECORDS SUMMARY | 2025-01-28 13:20 | XMS_ITS | Encounter Summary ---
Author Organization [facility] Address [address] [place] [address] Care Team Providers Care Sales And Training Specialist Name Role Phone Melissa Shannon MD Primary Care Provider [phone]- [phone] Encounter Details Date Type Department Care Team (Late st Contact Info) Description 03/29/2024 Lab Requisition [facility] - Main Lab [address] [facility] [place] [address] Mookie Donovan MD [address] [place] [address] Unspecified atrial fibrillation (CMS/HCC V24, CMS/HCC V28); [...] Lavender tube (03/29/2024 6:51 AM EST) Pathologist [facility] Extra Tube Hold for add-ons. 03/29/2024 11:01 AM EST [facility] Comment:Auto resulted. Blood Venous blood specimen / Unknown 03/29/2024 6:51 AM EST 03/29/2024 9:08 AM EST Mookie Donovan MD LAB BLOOD ORDERABLES Final Result [facility] [address] [place] [address], * (ABNORMAL) CBC auto differential (03/29/2024 6:51 AM EST) WBC 16.1(H) 4.8 - 10.8 K/mcL LAB HEMETOLOGY METHOD 03/29/2024 9:23 AM EST [facility] RBC 3.20(L) 3.80 - 4.80 M/mcL LAB HEMETOLOGY METHOD 03/29/2024 9:23 AM EST [facility] Hemoglobin 9.1(L) 11.5 - 16.0 g/dL LAB HEMETOLOGY METHOD 03/29/2024 9:23 AM [facility] Hematocrit 28.3(L) 35.0 - 47.0 % LAB HEMETOLOGY METHOD 03/29/2024 9:23 AM [facility] MCV 88.2 79.0 - 98.0 FL LAB HEMETOLOGY METHOD 03/29/2024 9:23 AM [facility] MCH 28.3 27.0 - 32.0 pcg LAB HEMETOLOGY METHOD 03/29/2024 9:23 AM [facility] MCHC 32.2 32.0 - 37.0 g/dL LAB HEMETOLOGY METHOD 03/29/2024 9:23 AM [facility] RDW 17.6(H) 11.0 - 15.0 % LAB HEMETOLOGY METHOD 03/29/2024 9:23 AM [facility] Platelets 482(H) 130 - 400 K/mcL LAB HEMETOLOGY METHOD 03/29/2024 9:23 AM [facility] MPV 9.2 7.0 - 11.0 FL LAB HEMETOLOGY METHOD 03/29/2024 9:23 AM [facility] NRBC 0.0 <1.0 % LAB HEMETOLOGY METHOD 03/29/2024 9:23 AM [facility] NRBC Absolute 0.00 <0.10 K/mcL LAB HEMETOLOGY METHOD 03/29/2024 9:23 AM [facility] Neutrophils Relative 82.2 % LAB HEMETOLOGY METHOD 03/29/2024 9:23 AM [facility] Lymphocytes Relative 8.3 % LAB HEMETOLOGY METHOD 03/29/2024 9:23 AM [facility] Monocytes Relative 7.4 % LAB HEMETOLOGY METHOD 03/29/2024 9:23 AM [facility] Eosinophils Relative 0.3 % LAB HEMETOLOGY METHOD 03/29/2024 9:23 AM [facility] Basophils Relative 0.2 % LAB HEMETOLOGY METHOD 03/29/2024 9:23 AM [facility] Immature Granulocytes Relative 1.6 % LAB HEMETOLOGY METHOD 03/29/2024 9:23 AM [facility] Neutrophils Absolute 13.23(H) 1.50 - 7.00 K/mcL LAB HEMETOLOGY METHOD 03/29/2024 9:23 AM EST [facility] Lymphocytes Absolute 1.33 1.00 - 5.00 K/mcL LAB HEMETOLOGY METHOD 03/29/2024 9:23 AM [facility] Monocytes Absolute 1.19(H) 0.20 - 1.00 K/mcL LAB HEMETOLOGY METHOD 03/29/2024 9:23 AM EST [facility] Eosinophils Absolute 0.05 0.00 - 0.50 K/mcL LAB HEMETOLOGY METHOD 03/29/2024 9:23 AM EST [facility] Basophils Absolute 0.03 0.00 - 0.20 K/mcL LAB HEMETOLOGY METHOD 03/29/2024 9:23 AM [facility] Immature Granulocytes Absolute 0.25(H) 0.00 - 0.03 K/mcL LAB HEMETOLOGY METHOD 03/29/2024 9:23 AM [facility] Blood Venous blood specimen / Unknown Venipuncture / Unknown 03/29/2024 6:51 AM EST 03/29/2024 8:51 AM EST Mookie Donovan MD LAB BLOOD ORDERABLES Final Result [facility] [address] [place] [address], * Hemoglobin A1c (03/29/2024 6:51 AM EST) Hemoglobin A1C 6.1 <6.5 % LAB CHEMISTRY METHOD 03/29/2024 11:40 AM EST [facility] Mean Bld Glu Estim. 128 mg/dL LAB CHEMISTRY METHOD 03/29/2024 11:40 AM [facility] Blood Venous blood specimen / Unknown Venipuncture / Unknown 03/29/2024 6:51 AM EST 03/29/2024 8:51 AM EST us Mookie Donovan MD LAB BLOOD ORDERABLES Final Result [facility] [address] [place] [address], * (ABNORMAL) Comprehensive metabolic panel (03/29/2024 6:51 AM EST) [facility] Sodium 141 133 - 145 mmol/L LAB CHEMISTRY METHOD 03/29/2024 9:50 AM [facility] Potassium 3.0(L) 3.5 - 5.5 mmol/L LAB CHEMISTRY METHOD 03/29/2024 9:50 AM [facility] Chloride 107 96 - 110 mmol/L LAB CHEMISTRY METHOD 03/29/2024 9:50 AM [facility] CO2 24 21 - 32 mmol/L LAB CHEMISTRY METHOD 03/29/2024 9:50 AM [facility] Anion Gap 10 3 - 11 LAB CHEMISTRY METHOD 03/29/2024 9:50 AM [facility] Glucose 134(H) 70 - 100 mg/dL LAB CHEMISTRY METHOD 03/29/2024 9:50 AM [facility] BUN 13 5 - 25 mg/dL LAB CHEMISTRY METHOD 03/29/2024 9:50 AM [facility] Creatinine 0.46(L) 0.50 - 1.10 mg/dL LAB CHEMISTRY METHOD 03/29/2024 9:50 AM [facility] eGFR 95 >=60 mL/min/1. 73m2 LAB CHEMISTRY METHOD 03/29/2024 9:50 AM [facility] Comment:Calculation based on the Chronic Kidney Disease Epidemiology Collaboration (CKD-EPI) equation refit without adjustment for race. BUN/Creatinine Ratio 28.3 LAB CHEMISTRY METHOD 03/29/2024 9:50 AM [facility] Calcium 8.4(L) 8.5 - 10.5 mg/dL LAB CHEMISTRY METHOD 03/29/2024 9:50 AM [facility] AST (SGOT) 17 10 - 42 unit/L LAB CHEMISTRY METHOD 03/29/2024 9:50 AM [facility] ALT (SGPT) 13 10 - 60 unit/L LAB CHEMISTRY METHOD 03/29/2024 9:50 AM [facility] Alkaline Phosphatase 161(H) 42 - 121 unit/L LAB CHEMISTRY METHOD 03/29/2024 9:50 AM [facility] Total Protein 5.5(L) 6.0 - 8.0 g/dL LAB CHEMISTRY METHOD 03/29/2024 9:50 AM [facility] Albumin 2.0(L) 3.2 - 5.0 g/dL LAB CHEMISTRY METHOD 03/29/2024 9:50 AM [facility] Total Bilirubin 0.4 0.0 - 1.4 mg/dL LAB CHEMISTRY METHOD 03/29/2024 9:50 AM [facility] Blood Venous blood specimen / Unknown Venipuncture / Unknown 03/29/2024 6:51 AM EST 03/29/2024 8:51 AM EST us Mookie Donovan MD LAB BLOOD ORDERABLES Final Result [facility] [address] [place] [address], documented in this encounter Visit Diagnoses Diagnosis Unspecified atrial fibrillation ([facility] V24, [facility] V28) Type 2 diabetes mellitus without complications ([facility] V24, [facility] V28) Anemia, unspecified documented in this encounter Additional Health Concerns Infection Onset Date Last Indicated Resolved Time ESBL 04/25/2024 04/25/2024 documented as of this encounter Care Teams Sales And Training Specialist Relationship Specialty Start Date End Date Melissa Shannon MD [address] [place] [address] PCP - General Internal Medicine 04/02/13 documented as of this encounter
--- OUTSIDE RECORDS SUMMARY | 2025-01-28 13:20 | XMS_ITS | Encounter Summary ---
Author Organization [facility] Address [address] [place] [address] Care Team Providers Care Telecommunications Administrator Name Role Phone Melissa Shannon MD Primary Care Provider [phone]- [phone] Encounter Details Date Type Department Care Team (Late st Contact Info) Description 04/26/2024 Lab Requisition [facility] - Main Lab [address] [facility] [place] [address] Mookie Donovan MD [address] [place] [address] Dysuria Social History Tobacco Use Types Packs/Day [...] reflex microscopic (04/25/2024 1:30 PM EST) Specific [place] Urine 1.028 1.003 - 1.030 LAB URINALYSIS [...] URINALYSIS - AUTOMATED METHOD 04/26/2024 9:42 AM EST [facility] Bacteria, Urine Many(A) Negative [...] Donovan MD LAB URINE ORDERABLES Final Result [facility] [address] [place] [address], * (ABNORMAL) Culture urine (04/25/2024 1:30 PM EST) Culture, Urine >100,000 CFU/mL Escherichia coli ESBL(A) [place] 04/30/2024 9:38 AM EST [facility] Comment: THIS ORGANISM IS POSITIVE FOR EXTENDED SPECTRUM BETA-LACTAMASE (ESBL). EXTENDED SPECTRUM BETA-LACTAMASE PRODUCING ORGANISMS DEMONSTRATE DECREASED ACTIVITY WITH PENICILLILNS, CEPHALOSPORINS AND AZTREONAM. This is an edited result. Previous organism was Gram negative bacilli on 04/28/2024 at 1047 EST. Edited result: Previously reported as Escherichia coli on 04/29/2024 at 0819 EST. Culture, Urine 50,000-100,000 CFU/mL Klebsiella pneumoniae ESBL(A) [place]EN 04/30/2024 9:38 AM EST [facility] Comment: THIS ORGANISM IS POSITIVE FOR EXTENDED SPECTRUM BETA-LACTAMASE (ESBL). EXTENDED SPECTRUM BETA-LACTAMASE PRODUCING ORGANISMS DEMONSTRATE DECREASED ACTIVITY WITH PENICILLILNS, CEPHALOSPORINS [...] LAB MICROBIOLOGY - GENERAL ORDERABLES Final Result [facility] [address] [place] [address], documented in this encounter Visit Diagnoses Diagnosis Dysuria documented in this encounter Additional Health Concerns Infection Onset Date Last Indicated Resolved Time ESBL 04/25/2024 04/25/2024 documented as of this encounter Care Teams Telecommunications Administrator Relationship Specialty Start Date End Date Melissa Shannon MD [address] [place] [address] PCP - General Internal Medicine 04/02/13 documented as of this encounter
--- OUTSIDE RECORDS SUMMARY | 2025-01-28 13:20 | XMS_ITS | Encounter Summary ---
Author Organization [facility] Address [address] [place] [address] Care Team Providers Care Hand Cooper Helper Name Role Phone Melissa Shannon MD Primary Care Provider [phone]- [phone] Encounter Details Date Type Department Care Team (Late st Contact Info) Description 04/06/2024 Lab Requisition [facility] - Main Lab [address] [facility] [place] [address] Mookie Donovan MD [address] [place] [address] Unspecified dementia, unspecified severity, without behavioral disturbance, [...] Antigen Negative Negative 04/06/2024 1:38 PM EST [facility] C difficile Toxins A+B, EIA Negative Negative 04/06/2024 1:38 PM EST [facility] Comment:NEGATIVE FOR TOXIN P RODUCING CLOSTRIDIOIDES DIFFICILE, NO ADDITIONAL TESTING IS NECESSARY. Stool Rectum structure / Unknown 04/05/2024 5:00 PM EST 04/06/2024 9:25 AM EST us Mookie Donovan MD LAB MICROBIOLOGY - GENERAL ORDERABLES Final Result [facility] [address] [place] [address], documented in this encounter Visit Diagnoses Diagnosis Unspecified dementia, unspecified severity, without behavioral disturbance, psychotic disturbance, mood disturbance, and anxiety (CMS/HCC V24, CMS/HCC V28) Unspecified infectious disease documented in this encounter Additional Health Concerns Infection Onset Date Last Indicated Resolved Time ESBL 04/25/2024 04/25/2024 documented as of this encounter Care Teams Hand Cooper Helper Relationship Specialty Start Date End Date Melissa Shannon MD [address] [place] [address] PCP - General Internal Medicine 04/02/13 documented as of this encounter
--- OUTSIDE RECORDS SUMMARY | 2025-01-28 13:20 | XMS_ITS | Encounter Summary ---
Author Organization [facility] Address [address] [place] [address] Care Team Providers Care Fruit Vendor Name Role Phone Melissa Shannon MD Primary Care Provider [phone]- [phone] Encounter Details Date Type Department Care Team (Late st Contact Info) Description 04/26/2024 Lab Requisition [facility] - Main Lab [address] [facility] [place] [address] Mookie Donovan MD [address] [place] [address] Anemia, unspecified; Type 2 diabetes mellitus without [...] LAB CHEMISTRY METHOD 04/26/2024 8:47 AM EST [facility] Blood Venous blood specimen / Unknown Venipuncture / Unknown 04/26/2024 6:34 AM EST 04/26/2024 7:53 AM EST us Mookie Donovan MD LAB BLOOD ORDERABLES Final Result Performing Organization Address City/[facility]/ZIP Co de Phone Number [facility] [address] [place] [address], * Thyroxine free (04/26/2024 6:34 AM EST) Free T4 1.25 0.70 - 1.80 ng/dL LAB CHEMISTRY METHOD 04/26/2024 8:46 AM EST [facility] Blood Venous blood specimen / Unknown Venipuncture / Unknown 04/26/2024 6:34 AM EST 04/26/2024 7:53 AM EST us Mookie Donovan MD LAB BLOOD ORDERABLES Final Result [facility] [address] [place] [address], [place] [phone] * (ABNORMAL) Thyroid stimulating hormone (04/26/2024 6:34 AM EST) TSH 6.69(H) 0.40 - 4.00 mcIU/mL LAB CHEMISTRY METHOD 04/26/2024 8:48 AM [facility] Blood Venous blood specimen / Unknown Venipuncture / Unknown 04/26/2024 6:34 AM EST 04/26/2024 7:53 AM EST Mookie Donovan MD LAB BLOOD ORDERABLES Final Result [facility] [address] [place] [address], * (ABNORMAL) Basic metabolic panel (04/26/2024 6:34 AM EST) Sodium 137 133 - 145 mmol/L LAB CHEMISTRY METHOD 04/26/2024 8:38 AM [facility] Potassium 3.7 3.5 - 5.5 mmol/L LAB CHEMISTRY METHOD 04/26/2024 8:38 AM [facility] Chloride 101 96 - 110 mmol/L LAB CHEMISTRY METHOD 04/26/2024 8:38 AM [facility] CO2 34(H) 21 - 32 mmol/L LAB CHEMISTRY METHOD 04/26/2024 8:38 AM [facility] Anion Gap 2(L) 3 - [...] LAB CHEMISTRY METHOD 04/26/2024 8:38 AM EST [facility] Comment:Calculation based on the Chronic Kidney [...] Donovan MD LAB BLOOD ORDERABLES Final Result [facility] [address] [place] [address], * (ABNORMAL) Complete blood count (04/26/2024 6:34 [...] LAB HEMETOLOGY METHOD 04/26/2024 8:13 AM EST [facility] MCHC 30.7(L) 32.0 - 37.0 g/dL [...] Donovan MD LAB BLOOD ORDERABLES Final Result [facility] [address] [place] [address], documented in this encounter Visit Diagnoses Diagnosis Anemia, unspecified Type 2 diabetes mellitus without complications (CMS/HCC V24, CMS/HCC V28) documented in this encounter Additional Health Concerns Infection Onset Date Last Indicated Resolved Time ESBL 04/25/2024 04/25/2024 documented as of this encounter Care Teams Fruit Vendor Relationship Specialty Start Date End Date Melissa Shannon MD [address] [place] [address] PCP - General Internal Medicine 04/02/13 documented as of this encounter
--- OUTSIDE RECORDS SUMMARY | 2025-01-28 13:20 | XMS_ITS | Clinical Summary ---
Author Organization [address] [facility] Address [address] [place] [address] Phone Care Team Providers Care Pattern Duplicator Name Role Phone Melissa Shannon MD Primary [...] mometasone (NASONEX) 50 mcg/actuation nasal spray 1 [place] by Nasal route at bedtime. Active montelukast [...] mouth 2 times daily (with meals). Active gabapentin (NEURONTIN) 100 mg capsule Take 1 capsule (100 mg total) by mouth 2 (two) times a day. 12/13/2024 Active Eliquis 5 mg tablet 1 tablet (5 mg total) 2 (two) times a day. 01/04/2025 Active potassium chloride 20 mEq tablet extended release TAKE 1 TABLET BY MOUTH Tue AND Tuesday10/19/2024 Active pravastatin (PRAVACHOL) 20 mg tablet Take 1 tablet (20 mg total) by mouth at bedtime. Active Active Problems Problem Noted Date Diagnosed Date DVT (deep venous thrombosis) ([facility] V24, [facility]/ [facility] V28) 2025 Overview (2025): OF LEFT LOWER EXTREMITY Compression fracture of body of thoracic vertebra ([facility] V24, [facility] V28) 2025 Shortness of breath on exertion 06/30/2021 Overview (03/08/2024): Last Assessment & Plan: The patient shortness of breath is likely multifactorial in etiology including diastolic dysfunction responsive to diuretics, underlying lung disease and deconditioning. She did recently have COVID infection. Of asked her to speak with her PCP and/your land survey technician given her recent COVID infection as well [...] they are available to me. Aortic aneurysm ([facility] V24) 08/12/2020 Overview (03/08/2024): Last Assessment & [...] berenice, ARB and diuretic. Paroxysmal atrial fibrillation ([facility] V24, [facility] V28) 08/12/2020 Overview (03/08/2024): Last Assessment & Plan: The patient is in sinus rhythm in office today by exam and EKG. Historically, she has declined anticoagulation due to significant bleeding. Update Holter monitor and follow. 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) Osteoporosis Allergic rhinitis Gout Controlled type 2 diabetes m ellitus without complication, without long-term current use of insulin ([facility] V24, [facility] V28) Family History Medical History Relation Name Comments [...] Sign Reading Time Taken Comments Blood Pressure 118/60 01/09/2025 10:43 AM EDT Pulse 83 01/09/2025 10:43 AM EDT Temperature - - Respiratory Rate - - Oxygen Saturation 93% 01/09/2025 10:43 AM EDT Inhaled Oxygen Concentration - - Weight 65.3 kg (144 lb) 01/09/2025 10:43 AM EDT Height 147.3 cm (4' 10 ) 01/09/2025 10:43 AM EDT Body Mass Index 30.1 01/09/2025 10:43 AM EDT Plan of Treatment Health Maintenance Due Date Last Done Comments Cholesterol Screening (Lipid Panel) 04/03/2022 Falls Risk Assessment 04/03/2022 Medicare Annual Wellness Visit 04/03/2022 Osteoporosis Screening (Bone Density Screening) 04/03/2022 Social Influencers of Health Screening 04/03/2022 Depression Screening 04/25/2024 COVID-19 Vaccine ( season) 2024 09/25/2020 Influenza Vaccine (#1) 2024 , 12/29/2022, 01/19/2022, Additional history exists Hypertension/CHF/CAD Annual BMP Blood Test 04/26/2025 04/26/2024, 04/17/2024, 04/10/2024, Additional history exists DTaP,Tdap,and Td Vaccines (2 - Td or Tdap) 06/22/2032 06/22/2022 Pneumococcal Vaccine: 50+ Years Completed 04/14/2016, 01/05/2012 Zoster Vaccines Completed 02/23/2021, 12/19/2020 RSV Immunization Adult Patients Completed 02/06/2024 HIB Vaccines Aged Out No longer eligi [...] Procedure Name Priority Date/Time Associated Diagnosis Comments ECG 12-LEAD Routine 01/09/2025 10:57 AM EDT Paroxysmal atrial fibrillation (CMS/HCC V24, CMS/HCC V28) BASIC METABOLIC PANEL Routine 04/26/2024 6:34 AM EST Anemia, unspecified Type 2 diabetes mellitus without complications (CMS/HCC) from Last 3 Months or Most Recently Relevant to Health Maintenance Results * ECG 12 lead (01/09/2025 10:57 AM EDT) Ventricular Rate ECG 83 BPM GEMUSE Atrial Rate 83 BPM GEMUSE P-R Interval 140 ms GEMUSE QRS Duration 112 ms GEMUSE Q-T Interval 422 ms GEMUSE QTc 495 ms GEMUSE P Wave [place] 26 degrees GEMUSE R [place] -11 degrees GEMUSE T [place] -25 degrees GEMUSE ECG Interpretation Normal sinus rhythm Incomplete right bundle branch block T wave abnormality, consider anterolateral ischemia Prolonged QT Abnormal ECG same as old [place] ECG Confirmed by Marliee HE JAY ([id number]) on 01/09/2025 11:19:10 AM GEM[facility] 01/09/2025 10:5 7 AM EDT 01/09/2025 11:19 AM EDT us Awais He MD ECG ORDERABLES Final Result [facility] * (ABNORMAL) Basic metabolic panel (04/26/2024 6:34 AM EST) Sodium 137 133 - 145 mmol/L LAB CHEMISTRY METHOD 04/26/2024 8:38 AM [facility] Potassium 3.7 3.5 - 5.5 mmol/L LAB CHEMISTRY METHOD 04/26/2024 8:38 AM [facility] Chloride 101 96 - 110 mmol/L LAB CHEMISTRY METHOD 04/26/2024 8:38 AM [facility] CO2 34(H) 21 - 32 mmol/L LAB CHEMISTRY METHOD 04/26/2024 8:38 AM [facility] Anion Gap 2(L) 3 - 11 LAB CHEMISTRY METHOD 04/26/2024 8:38 AM [facility] Glucose 133(H) 70 - 100 mg/dL LAB CHEMISTRY METHOD 04/26/2024 8:38 AM [facility] BUN 15 5 - 25 mg/dL LAB CHEMISTRY METHOD 04/26/2024 8:38 AM [facility] Creatinine 0.60 0.50 - 1.10 mg/dL LAB CHEMISTRY METHOD 04/26/2024 8:38 AM EST [facility] eGFR 89 >=60 mL/min/1. 73m2 LAB CHEMISTRY METHOD 04/26/2024 8:38 AM EST [facility] Comment:Calculation based on the Chronic Kidney Disease Epidemiology Collaboration (CKD-EPI) equation refit without adjustment for race. BUN/Creatinine Ratio 25.0 LAB CHEMISTRY METHOD 04/26/2024 8:38 AM EST [facility] Calcium 8.7 8.5 - 10.5 mg/dL LAB CHEMISTRY METHOD 04/26/2024 8:38 AM EST [facility] Blood Venous blood specimen / Unknown Venipuncture / Unknown 04/26/2024 6:34 AM EST 04/26/2024 7:53 AM EST us Mookie Donovan MD LAB BLOOD ORDERABLES Final Result [facility] [address] [place] [address], from Last 3 Months or Most Recently Relevant to Health Maintenance Additional Health Concerns Infection Onset Date Last Indicated ESBL 04/25/2024 04/25/2024 Insurance MEDICAID - [place] MEDICARE Care Teams Pattern Duplicator Relationship Specialty Start Date End Date Melissa Shannon MD [address] [place] [address] PCP - General Internal Medicine 04/02/13
--- OUTSIDE RECORDS SUMMARY | 2025-01-28 13:20 | XMS_ITS | Encounter Summary ---
Author Organization [facility] Address [address] [place] [address] Care Team Providers Care Offline Cutter Name Role Phone Melissa Shannon MD Primary Care Provider [phone]- [phone] Encounter Details Date Type Department Care Team (Late st Contact Info) Description 04/09/2024 Lab Requisition [facility] - Main Lab [address] [facility] [place] [address] Mookie Donovan MD [address] [place] [address] Anemia, unspecified Social History Tobacco Use Types [...] mmol/L LAB CHEMISTRY METHOD 04/10/2024 8:03 AM [facility] Potassium 3.8 3.5 - 5.5 mmol/L LAB CHEMISTRY METHOD 04/10/2024 8:03 AM [facility] Chloride 104 96 - 110 mmol/L LAB CHEMISTRY METHOD 04/10/2024 8:03 AM [facility] CO2 31 21 - 32 mmol/L LAB CHEMISTRY METHOD 04/10/2024 8:03 AM [facility] Anion Gap 4 3 - 11 LAB CHEMISTRY METHOD 04/10/2024 8:03 AM [facility] Glucose 123(H) 70 - 100 mg/dL LAB CHEMISTRY METHOD 04/10/2024 8:03 AM [facility] BUN 11 5 - 25 mg/dL LAB CHEMISTRY METHOD 04/10/2024 8:03 AM [facility] Creatinine 0.44(L) 0.50 - 1.10 mg/dL LAB CHEMISTRY METHOD 04/10/2024 8:03 AM [facility] eGFR 96 >=60 mL/min/1. 73m2 LAB CHEMISTRY METHOD 04/10/2024 8:03 AM [facility] Comment:Calculation based on the Chronic Kidney Disease Epidemiology Collaboration (CKD-EPI) equation refit without adjustment for race. BUN/Creatinine Ratio 25.0 LAB CHEMISTRY METHOD 04/10/2024 8:03 AM [facility] Calcium 8.1(L) 8.5 - 10.5 mg/dL LAB CHEMISTRY METHOD 04/10/2024 8:03 AM [facility] Blood Venous blood specimen / Unknown Venipuncture / Unknown 04/10/2024 5:20 AM EST 04/10/2024 7:34 AM EST us Mookie Donovan MD LAB BLOOD ORDERABLES Final Result [facility] [address] [place] [address], * (ABNORMAL) Complete blood count (04/10/2024 5:20 AM EST) [facility] WBC 10.3 4.8 - 10.8 K/mcL LAB HEMETOLOGY METHOD 04/10/2024 7:58 AM [facility] RBC 3.40(L) 3.80 - 4.80 M/mcL LAB HEMETOLOGY METHOD 04/10/2024 7:58 AM [facility] Hemoglobin 9.2(L) 11.5 - 16.0 g/dL LAB HEMETOLOGY METHOD 04/10/2024 7:58 AM [facility] Hematocrit 30.2(L) 35.0 - 47.0 % LAB HEMETOLOGY METHOD 04/10/2024 7:58 AM [facility] MCV 89.9 79.0 - 98.0 FL LAB HEMETOLOGY METHOD 04/10/2024 7:58 AM [facility] MCH 27.4 27.0 - 32.0 pcg LAB HEMETOLOGY METHOD 04/10/2024 7:58 AM [facility] MCHC 30.5(L) 32.0 - 37.0 g/dL LAB HEMETOLOGY METHOD 04/10/2024 7:58 AM [facility] RDW 16.9(H) 11.0 - 15.0 % LAB HEMETOLOGY METHOD 04/10/2024 7:58 AM [facility] Platelets 330 130 - 400 K/mcL LAB HEMETOLOGY METHOD 04/10/2024 7:58 AM [facility] MPV 10.9 7.0 - 11.0 FL LAB HEMETOLOGY METHOD 04/10/2024 7:58 AM [facility] NRBC 0.0 <1.0 % LAB HEMETOLOGY METHOD 04/10/2024 7:58 AM EST [facility] NRBC Absolute 0.00 <0.10 K/[facility] LAB HEMETOLOGY METHOD 04/10/2024 7:58 AM EST [facility] Blood Venous blood specimen / Unknown Venipuncture / Unknown 04/10/2024 5:20 AM EST 04/10/2024 7:34 AM EST us Mookie Donovan MD LAB BLOOD ORDERABLES Final Result [facility] [address] [place] [address], documented in this encounter Visit Diagnoses Diagnosis Anemia, unspecified documented in this encounter Additional Health Concerns Infection Onset Date Last Indicated Resolved Time ESBL 04/25/2024 04/25/2024 documented as of this encounter Care Teams Offline Cutter Relationship Specialty Start Date End Date Melissa Shannon MD [address] [place] [address] PCP - General Internal Medicine 04/02/13 documented as of this encounter
== END 2025-01-28 13:07 | disposition home or self-care (01) ==
PROVIDERS: PCP Internal Medicine; Visit Provider Physician Assistant Medical
DX: R05.1 Acute cough (principal)

== ENCOUNTER → 2025-01-28 10:59 | Outpatient (BNVA) | payer MEDICARE, MEDICAID, SELFPAY | PROVIDERS: PCP Internal Medicine; Visit Provider Physician Assistant Medical | DX: R05.3 Chronic cough (principal); J44.9 Chronic obstructive pulmonary disease, unspecified | CPT/HCPCS: 99212 ==

== ENCOUNTER 2025-01-31 11:04 | Outpatient (REF) | payer MEDICARE, MEDICAID, SELFPAY ==
--- NOTE | ~2025-01-31 | XR_ITS ---
EXAMINATION: XR CHEST 2 VIEWS HISTORY: R05.9 - Cough, unspecified COMPARISON: Comparison is made with the prior examination dated 07/24/2024. FINDINGS: PA and lateral views of the chest are submitted. The lungs are expanded and clear. There is no pleural effusion, pneumothorax, or pulmonary vascular congestion. The heart is normal in size. The aorta is tortuous and calcified. There is a severe chronic compression deformity of a lower thoracic vertebral body. There is severe degenerative change of the shoulders. XR/XR chest 2V IMPRESSION: No acute cardiopulmonary abnormality. Electronically signed by: Dg Brannon MD 01/31/2025 11:24 AM EDT
== END 2025-01-31 11:05 | disposition home or self-care (01) ==
LOC: HO.HMGCX 11:04
PROVIDERS: PCP Internal Medicine; Visit Provider Physician Assistant Medical
DX: R05.9 Cough, unspecified (principal)
CPT/HCPCS: 71046

== ENCOUNTER → 2025-01-31 11:07 | Outpatient (BNV) | payer MEDICARE, MEDICAID, SELFPAY | PROVIDERS: PCP Internal Medicine; Visit Provider Radiology Diagnostic Radiology | DX: R05.9 Cough, unspecified (principal) | CPT/HCPCS: 71046 ==

== ENCOUNTER 2025-03-25 14:50 | Outpatient (REF) | payer MEDICARE, MEDICAID, SELFPAY ==
[2025-03-25 16:30] LABS: Hematocrit 37.1 % (37.0-47.0); Hemoglobin 12.2 g/dl (12.0-16.0); Imm Gran Abs Auto 0.05 X10*3/uL (0.00-0.03); Imm Gran Pct Auto 0.4 % (0.0-0.4); Lymphocytes Absolute Auto 5.3 X10*3/uL (1.2-4.9); MANUAL DIFF FLAG SCAN; Mean Corpuscular HGB Conc 32.9 g/dl (31.0-35.0); Mean Corpuscular Hemoglobin 30.3 pg (27.0-33.0); Mean Corpuscular Volume 92.3 fL (80.0-98.0); NRBC Abs Auto 0.000 X10*3/uL (0.0-0.012); NRBC Pct Auto 0.0 /100WBC (0.0-0.2); Platelet Count 230 X10*3/uL (160-400); Red Blood Count 4.02 X10*6/uL (4.20-5.50); SCAN SMEAR FLAG 1; White Blood Count 13.5 X10*3/uL (4.8-10.8)
[2025-03-25 17:35] LABS: Alanine Aminotransferase 50 U/L (0-31); Albumin Level 4.9 g/dL (3.5-5.0); Alkaline Phosphatase 72 U/L (39-117); Anion Gap 18 (12-20); Aspartate Amino Transferase 50 U/L (5-31); Blood Urea Nitrogen 29 mg/dL (9-16); Calcium 10.1 mg/dL (8.4-10.2); Carbon Dioxide 26 mmol/L (22-29); Chloride 104 mmol/L (96-108); Cholesterol 220 mg/dL (<200); Estimated Glomerular Filt Rate 29; HDL Cholesterol 60 mg/dL (>40); Iron 74 mcg/dL (30-160); Magnesium 1.6 mg/dL (1.6-2.6); Percent Iron Saturation 24 % (15-50); Potassium 3.6 mmol/L (3.3-5.1); Sodium 144 mmol/L (135-145); Total Iron Binding Capacity 310 mcg/dL (228-428); Total Protein 8.0 g/dL (6.5-8.0); Triglycerides 163 mg/dL (<150); Unsaturated Iron Binding 236 ug/dL
[2025-03-25 18:04] LABS: Folate 12.4 ng/mL (> or = 4.0); Vitamin B12 299 pg/mL (200-900)
--- OUTSIDE RECORDS SUMMARY | 2025-03-25 18:07 | XMS_ITS | Encounter Summary ---
Author Organization [facility] Address [address] [place] [address] Care Team Providers Care Set Key Driver Name Role Phone Melissa Shannon MD Primary Care Provider [phone]- [phone] Encounter Details Date Type Department Care Team (Late st Contact Info) Description 04/06/2024 Lab Requisition [facility] - Main Lab [address] [facility] [place] [address] Mookie Donovan MD [address] [place] [address] Unspecified dementia, unspecified severity, without behavioral disturbance, [...] ORDERABLES Final Result [facility] [address] [place] [address], documented in this encounter Visit Diagnoses Diagnosis Unspecified dementia, unspecified severity, without behavioral disturbance, psychotic disturbance, mood disturbance, and anxiety (CMS/HCC V24, CMS/HCC V28) Unspecified infectious disease documented in this encounter Additional Health Concerns Infection Onset Date Last Indicated Resolved Time ESBL 04/25/2024 04/25/2024 documented as of this encounter Care Teams Set Key Driver Relationship Specialty Start Date End Date Melissa Shannon MD [address] [place] [address] PCP - General Internal Medicine 04/02/13 documented as of this encounter
--- OUTSIDE RECORDS SUMMARY | 2025-03-25 18:07 | XMS_ITS | Encounter Summary ---
Author Organization [facility] Address [address] [place] [address] Care Team Providers Care Seismograph Chief Name Role Phone Melissa Shannon MD Primary Care Provider [phone]- [phone] Encounter Details Date Type Department Care Team (Late st Contact Info) Description 04/16/2024 Lab Requisition [facility] - Main Lab [address] [facility] [place] [address] Mookie Donovan MD [address] [place] [address] Anemia, unspecified Social History Tobacco Use Types [...] mmol/L LAB CHEMISTRY METHOD 04/17/2024 10:[address] [facility] Potassium 4.1 3.5 - 5.5 mmol/L LAB CHEMISTRY METHOD 04/17/2024 10:[address] [facility] Chloride 95(L) 96 - 110 mmol/L LAB CHEMISTRY METHOD 04/17/2024 10:[address] [facility] CO2 28 21 - 32 mmol/L LAB CHEMISTRY METHOD 04/17/2024 10:[address] [facility] Anion Gap 10 3 - 11 LAB CHEMISTRY METHOD 04/17/2024 10:[address] [facility] Glucose 126(H) 70 - 100 mg/dL LAB CHEMISTRY METHOD 04/17/2024 10:[address] [facility] BUN 10 5 - 25 mg/dL LAB CHEMISTRY METHOD 04/17/2024 10:[address] [facility] Creatinine 0.59 0.50 - 1.10 mg/dL LAB CHEMISTRY METHOD 04/17/2024 10:[address] [facility] eGFR 90 >=60 mL/min/1. 73m2 LAB CHEMISTRY METHOD 04/17/2024 10:[address] [facility] Comment:Calculation based on the Chronic Kidney Disease Epidemiology Collaboration (CKD-EPI) equation refit without adjustment for race. BUN/Creatinine Ratio 16.9 LAB CHEMISTRY METHOD 04/17/2024 10:[address] [facility] Calcium 8.8 8.5 - 10.5 mg/dL LAB CHEMISTRY METHOD 04/17/2024 10:[address] [facility] Blood Venous blood specimen / Unknown Venipuncture / Unknown 04/17/2024 7:30 AM EST 04/17/2024 10:07 AM EST us Mookie Donovan MD LAB BLOOD ORDERABLES Final Result [facility] [address] [facility] [place] [address], * (ABNORMAL) Complete blood count (04/17/2024 7:30 AM EST) [facility] WBC 10.2 4.8 - 10.8 K/mcL LAB HEMETOLOGY METHOD 04/17/2024 10:[address] [facility] RBC 3.70(L) 3.80 - 4.80 M/mcL LAB HEMETOLOGY METHOD 04/17/2024 10:[address] [facility] Hemoglobin 10.0(L) 11.5 - 16.0 g/dL LAB HEMETOLOGY METHOD 04/17/2024 10:[address] [facility] Hematocrit 32.0(L) 35.0 - 47.0 % LAB HEMETOLOGY METHOD 04/17/2024 10:[address] [facility] MCV 87.2 79.0 - 98.0 FL LAB HEMETOLOGY METHOD 04/17/2024 10:[address] [facility] MCH 27.2 27.0 - 32.0 pcg LAB HEMETOLOGY METHOD 04/17/2024 10:[address] [facility] MCHC 31.3(L) 32.0 - 37.0 g/dL LAB HEMETOLOGY METHOD 04/17/2024 10:[address] [facility] RDW 16.4(H) 11.0 - 15.0 % LAB HEMETOLOGY METHOD 04/17/2024 10:[address] [facility] Platelets 191 130 - 400 K/mcL LAB HEMETOLOGY METHOD 04/17/2024 10:[address] [facility] MPV 10.9 7.0 - 11.0 FL LAB HEMETOLOGY METHOD 04/17/2024 10:[address] [facility] NRBC 0.0 <1.0 % LAB HEMETOLOGY METHOD 04/17/2024 10:33 AM EST [facility] NRBC Absolute 0.00 <0.10 K/[facility] LAB HEMETOLOGY METHOD 04/17/2024 10:33 AM EST [facility] Blood Venous blood specimen / Unknown Venipuncture / Unknown 04/17/2024 7:30 AM EST 04/17/2024 10:07 AM EST us Mookie Donovan MD LAB BLOOD ORDERABLES Final Result [facility] [address] [place] [address], documented in this encounter Visit Diagnoses Diagnosis Anemia, unspecified documented in this encounter Additional Health Concerns Infection Onset Date Last Indicated Resolved Time ESBL 04/25/2024 04/25/2024 documented as of this encounter Care Teams Seismograph Chief Relationship Specialty Start Date End Date Melissa Shannon MD [address] [place] [address] PCP - General Internal Medicine 04/02/13 documented as of this encounter
--- OUTSIDE RECORDS SUMMARY | 2025-03-25 18:07 | XMS_ITS | Encounter Summary ---
Author Organization [facility] Address [address] [place] [address] Care Team Providers Care Agate Setter Name Role Phone Melissa Shannon MD Primary Care Provider [phone]- [phone] Encounter Details Date Type Department Care Team (Late st Contact Info) Description 04/02/2024 Lab Requisition [facility] - Main Lab [address] [facility] [place] [address] Mookie Donovan MD [address] [place] [address] Anemia, unspecified Social History Tobacco Use Types [...] mg/dL LAB CHEMISTRY METHOD 04/03/2024 12:21 PM [facility] Blood Venous blood specimen / Unknown Venipuncture / Unknown 04/03/2024 9:41 AM EST 04/03/2024 10:44 AM EST Mookie Donovan MD LAB BLOOD ORDERABLES Final Result [facility] [address] [place] [address], * (ABNORMAL) Complete blood count (04/03/2024 8:41 AM EST) WBC 12.7(H) 4.8 - 10.8 K/mcL LAB HEMETOLOGY METHOD 04/03/2024 11:05 AM [facility] RBC 3.30(L) 3.80 - 4.80 M/mcL LAB HEMETOLOGY METHOD 04/03/2024 11:05 AM [facility] Hemoglobin 9.8(L) 11.5 - 16.0 g/dL LAB HEMETOLOGY METHOD 04/03/2024 11:05 AM [facility] Hematocrit 29.3(L) 35.0 - 47.0 % LAB HEMETOLOGY METHOD 04/03/2024 11:05 AM [facility] MCV 88.5 79.0 - 98.0 FL LAB HEMETOLOGY METHOD 04/03/2024 11:05 AM [facility] MCH 29.6 27.0 - 32.0 pcg LAB HEMETOLOGY METHOD 04/03/2024 11:05 AM [facility] MCHC 33.4 32.0 - 37.0 g/dL LAB HEMETOLOGY METHOD 04/03/2024 11:05 AM [facility] RDW 17.3(H) 11.0 - 15.0 % LAB HEMETOLOGY METHOD 04/03/2024 11:05 AM EST [facility] Platelets 565(H) 130 - 400 K/mcL LAB HEMETOLOGY METHOD 04/03/2024 11:05 AM EST [facility] MPV 9.8 7.0 - 11.0 FL LAB HEMETOLOGY METHOD 04/03/2024 11:05 AM EST [facility] NRBC 0.0 <1.0 % LAB HEMETOLOGY METHOD 04/03/2024 11:05 AM EST [facility] NRBC Absolute 0.00 <0.10 K/mcL LAB HEMETOLOGY METHOD 04/03/2024 11:05 AM [facility] Blood Venous blood specimen / Unknown Venipuncture / Unknown 04/03/2024 8:41 AM EST 04/03/2024 10:46 AM EST us Mookie Donovan MD LAB BLOOD ORDERABLES Final Result [facility] [address] [place] [address], documented in this encounter Visit Diagnoses Diagnosis Anemia, unspecified documented in this encounter Additional Health Concerns Infection Onset Date Last Indicated Resolved Time ESBL 04/25/2024 04/25/2024 documented as of this encounter Care Teams Agate Setter Relationship Specialty Start Date End Date Melissa Shannon MD [address] [place] [address] PCP - General Internal Medicine 04/02/13 documented as of this encounter
--- OUTSIDE RECORDS SUMMARY | 2025-03-25 18:07 | XMS_ITS | Encounter Summary ---
Author Organization [facility] Address [address] [place] [address] Care Team Providers Care Research Specialist Name Role Phone Melissa Shannon MD Primary Care Provider [phone]- [phone] Encounter Details Date Type Department Care Team (Late st Contact Info) Description 03/29/2024 Lab Requisition [facility] - Main Lab [address] [facility] [place] [address] Mookie Donovan MD [address] [place] [address] Unspecified atrial fibrillation (CMS/HCC V24, CMS/HCC V28); [...] tube (03/29/2024 6:51 AM EST) Pathologist [facility] Extra Tube Hold for add-ons. 03/29/2024 11:01 AM EST [facility] Comment:Auto resulted. Blood Venous blood specimen / Unknown 03/29/2024 6:51 AM EST 03/29/2024 9:08 AM EST Mookie Donovan MD LAB BLOOD ORDERABLES Final Result [facility] [address] [place] [address], * (ABNORMAL) CBC auto differential (03/29/2024 6:51 AM EST) WBC 16.1(H) 4.8 - 10.8 K/mcL LAB HEMETOLOGY METHOD 03/29/2024 9:23 AM EST [facility] RBC 3.20(L) 3.80 - 4.80 M/mcL LAB HEMETOLOGY METHOD 03/29/2024 9:23 AM EST [facility] Hemoglobin 9.1(L) 11.5 - 16.0 g/dL LAB HEMETOLOGY METHOD 03/29/2024 9:23 AM [facility] Hematocrit 28.3(L) 35.0 - 47.0 % LAB HEMETOLOGY METHOD 03/29/2024 9:23 AM [facility] MCV 88.2 79.0 - 98.0 FL LAB HEMETOLOGY METHOD 03/29/2024 9:23 AM [facility] MCH 28.3 27.0 - 32.0 pcg LAB HEMETOLOGY METHOD 03/29/2024 9:23 AM [facility] MCHC 32.2 32.0 - 37.0 g/dL LAB HEMETOLOGY METHOD 03/29/2024 9:23 AM [facility] RDW 17.6(H) 11.0 - 15.0 % LAB HEMETOLOGY METHOD 03/29/2024 9:23 AM [facility] Platelets 482(H) 130 - 400 K/mcL LAB HEMETOLOGY METHOD 03/29/2024 9:23 AM [facility] MPV 9.2 7.0 - 11.0 FL LAB HEMETOLOGY METHOD 03/29/2024 9:23 AM [facility] NRBC 0.0 <1.0 % LAB HEMETOLOGY METHOD 03/29/2024 9:23 AM [facility] NRBC Absolute 0.00 <0.10 K/mcL LAB HEMETOLOGY METHOD 03/29/2024 9:23 AM [facility] Neutrophils Relative 82.2 % LAB HEMETOLOGY METHOD 03/29/2024 9:23 AM [facility] Lymphocytes Relative 8.3 % LAB HEMETOLOGY METHOD 03/29/2024 9:23 AM [facility] Monocytes Relative 7.4 % LAB HEMETOLOGY METHOD 03/29/2024 9:23 AM [facility] Eosinophils Relative 0.3 % LAB HEMETOLOGY METHOD 03/29/2024 9:23 AM [facility] Basophils Relative 0.2 % LAB HEMETOLOGY METHOD 03/29/2024 9:23 AM [facility] Immature Granulocytes Relative 1.6 % LAB HEMETOLOGY METHOD 03/29/2024 9:23 AM [facility] Neutrophils Absolute 13.23(H) 1.50 - 7.00 K/mcL LAB HEMETOLOGY METHOD 03/29/2024 9:23 AM EST [facility] Lymphocytes Absolute 1.33 1.00 - 5.00 K/mcL LAB HEMETOLOGY METHOD 03/29/2024 9:23 AM [facility] Monocytes Absolute 1.19(H) 0.20 - 1.00 K/mcL LAB HEMETOLOGY METHOD 03/29/2024 9:23 AM EST [facility] Eosinophils Absolute 0.05 0.00 - 0.50 K/mcL LAB HEMETOLOGY METHOD 03/29/2024 9:23 AM EST [facility] Basophils Absolute 0.03 0.00 - 0.20 K/mcL LAB HEMETOLOGY METHOD 03/29/2024 9:23 AM [facility] Immature Granulocytes Absolute 0.25(H) 0.00 - 0.03 K/mcL LAB HEMETOLOGY METHOD 03/29/2024 9:23 AM [facility] Blood Venous blood specimen / Unknown Venipuncture / Unknown 03/29/2024 6:51 AM EST 03/29/2024 8:51 AM EST Mookie Donovan MD LAB BLOOD ORDERABLES Final Result [facility] [address] [place] [address], * Hemoglobin A1c (03/29/2024 6:51 AM EST) Hemoglobin A1C 6.1 <6.5 % LAB CHEMISTRY METHOD 03/29/2024 11:40 AM EST [facility] Mean Bld Glu Estim. 128 mg/dL LAB CHEMISTRY METHOD 03/29/2024 11:40 AM [facility] Blood Venous blood specimen / Unknown Venipuncture / Unknown 03/29/2024 6:51 AM EST 03/29/2024 8:51 AM EST us Mookie Donovan MD LAB BLOOD ORDERABLES Final Result [facility] [address] [place] [address], * (ABNORMAL) Comprehensive metabolic panel (03/29/2024 6:51 AM EST) [facility] Sodium 141 133 - 145 mmol/L LAB CHEMISTRY METHOD 03/29/2024 9:50 AM [facility] Potassium 3.0(L) 3.5 - 5.5 mmol/L LAB CHEMISTRY METHOD 03/29/2024 9:50 AM [facility] Chloride 107 96 - 110 mmol/L LAB CHEMISTRY METHOD 03/29/2024 9:50 AM [facility] CO2 24 21 - 32 mmol/L LAB CHEMISTRY METHOD 03/29/2024 9:50 AM [facility] Anion Gap 10 3 - 11 LAB CHEMISTRY METHOD 03/29/2024 9:50 AM [facility] Glucose 134(H) 70 - 100 mg/dL LAB CHEMISTRY METHOD 03/29/2024 9:50 AM [facility] BUN 13 5 - 25 mg/dL LAB CHEMISTRY METHOD 03/29/2024 9:50 AM [facility] Creatinine 0.46(L) 0.50 - 1.10 mg/dL LAB CHEMISTRY METHOD 03/29/2024 9:50 AM [facility] eGFR 95 >=60 mL/min/1. 73m2 LAB CHEMISTRY METHOD 03/29/2024 9:50 AM [facility] Comment:Calculation based on the Chronic Kidney Disease Epidemiology Collaboration (CKD-EPI) equation refit without adjustment for race. BUN/Creatinine Ratio 28.3 LAB CHEMISTRY METHOD 03/29/2024 9:50 AM [facility] Calcium 8.4(L) 8.5 - 10.5 mg/dL LAB CHEMISTRY METHOD 03/29/2024 9:50 AM [facility] AST (SGOT) 17 10 - 42 unit/L LAB CHEMISTRY METHOD 03/29/2024 9:50 AM [facility] ALT (SGPT) 13 10 - 60 unit/L LAB CHEMISTRY METHOD 03/29/2024 9:50 AM [facility] Alkaline Phosphatase 161(H) 42 - 121 unit/L LAB CHEMISTRY METHOD 03/29/2024 9:50 AM [facility] Total Protein 5.5(L) 6.0 - 8.0 g/dL LAB CHEMISTRY METHOD 03/29/2024 9:50 AM [facility] Albumin 2.0(L) 3.2 - 5.0 g/dL LAB CHEMISTRY METHOD 03/29/2024 9:50 AM [facility] Total Bilirubin 0.4 0.0 - 1.4 mg/dL LAB CHEMISTRY METHOD 03/29/2024 9:50 AM [facility] Blood Venous blood specimen / Unknown Venipuncture / Unknown 03/29/2024 6:51 AM EST 03/29/2024 8:51 AM EST us Mookie Donovan MD LAB BLOOD ORDERABLES Final Result [facility] [address] [place] [address], documented in this encounter Visit Diagnoses Diagnosis Unspecified atrial fibrillation ([facility] V24, [facility] V28) Type 2 diabetes mellitus without complications ([facility] V24, [facility] V28) Anemia, unspecified documented in this encounter Additional Health Concerns Infection Onset Date Last Indicated Resolved Time ESBL 04/25/2024 04/25/2024 documented as of this encounter Care Teams Research Specialist Relationship Specialty Start Date End Date Melissa Shannon MD [address] [place] [address] PCP - General Internal Medicine 04/02/13 documented as of this encounter
--- OUTSIDE RECORDS SUMMARY | 2025-03-25 18:07 | XMS_ITS | Clinical Summary ---
Author Organization [address] [facility] Address [address] [place] [address] Phone Care Team Providers Care Fisheries Specialist Name Role Phone Melissa Shannon MD [...] mometasone (NASONEX) 50 mcg/actuation nasal spray 1 Roxana by Nasal route at bedtime. Active montelukast [...] Date Diagnosed Date DVT (deep venous thrombosis) ([facility] V24, [facility] V28) 2025 Overview (2025): OF LEFT LOWER EXTREMITY Compression fracture of body of thoracic vertebra ([facility] V24, [facility] V28) 2025 Shortness of breath on exertion 06/30/2021 Overview (03/08/2024): Last Assessment & Plan: The patient shortness of breath is likely multifactorial in etiology including diastolic dysfunction responsive to diuretics, underlying lung disease and deconditioning. She did recently have COVID infection. Of asked her to speak with her PCP and/your pluck separator given her recent COVID infection as well [...] they are available to me. Aortic aneurysm ([facility] V24) 08/12/2020 Overview (03/08/2024): Last [...] berenice, ARB and diuretic. Paroxysmal atrial fibrillation ([facility] V24, [facility] V28) 08/12/2020 Overview (03/08/2024): Last Assessment & Plan: The patient is in sinus rhythm in office today by exam and EKG. Historically, she has declined anticoagulation due to significant bleeding. Update Holter monitor and follow. Encounters Date Type Department Care Team Description 01/09/2025 10:20 AM EDT Office Visit [facility] [address] [place] [address] Awais He MD Paroxysmal atrial fibrillation ([facility] V24, 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 V28) Family History Medical History Relation Name [...] GEMUSE QTc 495 ms GEMUSE P Wave Anderson 26 degrees GEMUSE R Anderson -11 degrees GEMUSE T Anderson -25 degrees GEMUSE ECG Interpretation Normal sinus rhythm Incomplete right bundle branch block T wave abnormality, consider anterolateral ischemia Prolonged QT Abnormal ECG same as old darciewingo ECG Confirmed by Marilee EH JAY ([id number]) on 01/09/2025 11:19:10 AM GEMUSE [...] 8:38 AM [facility] CO2 34(H) 21 - 32 mmol/L LAB CHEMISTRY METHOD 04/26/2024 8:38 AM [facility] Anion Gap 2(L) 3 - 11 LAB CHEMISTRY METHOD 04/26/2024 8:38 AM [facility] Glucose 133(H) 70 - 100 mg/dL LAB CHEMISTRY METHOD 04/26/2024 8:38 AM [facility] BUN 15 5 - 25 mg/dL LAB CHEMISTRY METHOD 04/26/2024 8:38 AM [facility] Creatinine 0.60 0.50 - 1.10 mg/dL LAB CHEMISTRY METHOD 04/26/2024 8:38 AM EST [facility] eGFR 89 >=60 mL/min/1. 73m2 LAB CHEMISTRY METHOD 04/26/2024 8:38 AM EST [facility] Comment:Calculation based on the Chronic Kidney Disease Epidemiology Collaboration (CKD-EPI) equation refit without adjustment for race. BUN/Creatinine Ratio 25.0 LAB CHEMISTRY METHOD 04/26/2024 8:38 AM EST [facility] Calcium 8.7 8.5 - 10.5 mg/dL LAB CHEMISTRY METHOD 04/26/2024 8:38 AM EST [facility] Blood Venous blood specimen / Unknown Venipuncture / Unknown 04/26/2024 6:34 AM EST 04/26/2024 7:53 AM EST us Mookie Donovan MD LAB BLOOD ORDERABLES Final Result [facility] [address] [place] [address], from Last 3 Months or Most Recently Relevant to Health Maintenance Additional Health Concerns Infection Onset Date Last Indicated ESBL 04/25/2024 04/25/2024 Insurance MEDICAID - [place] MEDICARE Care Teams Fisheries Specialist Relationship Specialty Start Date End Date Melissa Shannon MD [address] [place] [address] PCP - General Internal Medicine 04/02/13
--- OUTSIDE RECORDS SUMMARY | 2025-03-25 18:07 | XMS_ITS | Encounter Summary ---
Author Organization [facility] Address [address] [place] [address] Care Team Providers Care Prorate Clerk Name Role Phone Melissa Shannon MD Primary Care Provider [phone]- [phone] Encounter Details Date Type Department Care Team (Late st Contact Info) Description 04/09/2024 Lab Requisition [facility] - Main Lab [address] [facility] [place] [address] Mookie Donovan MD [address] [place] [address] Anemia, unspecified Social History Tobacco Use Types [...] mmol/L LAB CHEMISTRY METHOD 04/10/2024 8:03 AM [facility] Potassium 3.8 3.5 - 5.5 mmol/L LAB CHEMISTRY METHOD 04/10/2024 8:03 AM [facility] Chloride 104 96 - 110 mmol/L LAB CHEMISTRY METHOD 04/10/2024 8:03 AM [facility] CO2 31 21 - 32 mmol/L LAB CHEMISTRY METHOD 04/10/2024 8:03 AM [facility] Anion Gap 4 3 - 11 LAB CHEMISTRY METHOD 04/10/2024 8:03 AM [facility] Glucose 123(H) 70 - 100 mg/dL LAB CHEMISTRY METHOD 04/10/2024 8:03 AM [facility] BUN 11 5 - 25 mg/dL LAB CHEMISTRY METHOD 04/10/2024 8:03 AM [facility] Creatinine 0.44(L) 0.50 - 1.10 mg/dL LAB CHEMISTRY METHOD 04/10/2024 8:03 AM [facility] eGFR 96 >=60 mL/min/1. 73m2 LAB CHEMISTRY METHOD 04/10/2024 8:03 AM [facility] Comment:Calculation based on the Chronic Kidney Disease Epidemiology Collaboration (CKD-EPI) equation refit without adjustment for race. BUN/Creatinine Ratio 25.0 LAB CHEMISTRY METHOD 04/10/2024 8:03 AM [facility] Calcium 8.1(L) 8.5 - 10.5 mg/dL LAB CHEMISTRY METHOD 04/10/2024 8:03 AM [facility] Blood Venous blood specimen / Unknown Venipuncture / Unknown 04/10/2024 5:20 AM EST 04/10/2024 7:34 AM EST us Mookie Donovan MD LAB BLOOD ORDERABLES Final Result [facility] [address] [place] [address], * (ABNORMAL) Complete blood count (04/10/2024 5:20 AM EST) [facility] WBC 10.3 4.8 - 10.8 K/mcL LAB HEMETOLOGY METHOD 04/10/2024 7:58 AM [facility] RBC 3.40(L) 3.80 - 4.80 M/mcL LAB HEMETOLOGY METHOD 04/10/2024 7:58 AM [facility] Hemoglobin 9.2(L) 11.5 - 16.0 g/dL LAB HEMETOLOGY METHOD 04/10/2024 7:58 AM [facility] Hematocrit 30.2(L) 35.0 - 47.0 % LAB HEMETOLOGY METHOD 04/10/2024 7:58 AM [facility] MCV 89.9 79.0 - 98.0 FL LAB HEMETOLOGY METHOD 04/10/2024 7:58 AM [facility] MCH 27.4 27.0 - 32.0 pcg LAB HEMETOLOGY METHOD 04/10/2024 7:58 AM [facility] MCHC 30.5(L) 32.0 - 37.0 g/dL LAB HEMETOLOGY METHOD 04/10/2024 7:58 AM [facility] RDW 16.9(H) 11.0 - 15.0 % LAB HEMETOLOGY METHOD 04/10/2024 7:58 AM [facility] Platelets 330 130 - 400 K/mcL LAB HEMETOLOGY METHOD 04/10/2024 7:58 AM [facility] MPV 10.9 7.0 - 11.0 FL LAB HEMETOLOGY METHOD 04/10/2024 7:58 AM [facility] NRBC 0.0 <1.0 % LAB HEMETOLOGY METHOD 04/10/2024 7:58 AM EST [facility] NRBC Absolute 0.00 <0.10 K/[facility] LAB HEMETOLOGY METHOD 04/10/2024 7:58 AM EST [facility] Blood Venous blood specimen / Unknown Venipuncture / Unknown 04/10/2024 5:20 AM EST 04/10/2024 7:34 AM EST us Mookie Donovan MD LAB BLOOD ORDERABLES Final Result [facility] [address] [place] [address], documented in this encounter Visit Diagnoses Diagnosis Anemia, unspecified documented in this encounter Additional Health Concerns Infection Onset Date Last Indicated Resolved Time ESBL 04/25/2024 04/25/2024 documented as of this encounter Care Teams Prorate Clerk Relationship Specialty Start Date End Date Melissa Shannon MD [address] [place] [address] PCP - General Internal Medicine 04/02/13 documented as of this encounter
--- OUTSIDE RECORDS SUMMARY | 2025-03-25 18:07 | XMS_ITS | Encounter Summary ---
Author Organization [facility] Address [address] [place] [address] Care Team Providers Care Bulk Mail Clerk Name Role Phone Melissa Shannon MD Primary Care Provider [phone]- [phone] Encounter Details Date Type Department Care Team (Late st Contact Info) Description 04/26/[address] [facility] - Main Lab [address] [facility] [place] [address] Mookie Donovan MD [address] [place] [address] Anemia, unspecified; Type 2 diabetes mellitus without [...] LAB CHEMISTRY METHOD 04/26/2024 8:47 AM EST [facility] Blood Venous blood specimen / Unknown Venipuncture / Unknown 04/26/2024 6:34 AM EST 04/26/2024 7:53 AM EST us Mookie Donovan MD LAB BLOOD ORDERABLES Final Result Performing Organization Address City/[facility]/ZIP Co de Phone Number [facility] [address] [place] [address], * Thyroxine free (04/26/2024 6:34 AM EST) Free T4 1.25 0.70 - 1.80 ng/dL LAB CHEMISTRY METHOD 04/26/2024 8:46 AM EST [facility] Blood Venous blood specimen / Unknown Venipuncture / Unknown 04/26/2024 6:34 AM EST 04/26/2024 7:53 AM EST us Mookie Donovan MD LAB BLOOD ORDERABLES Final Result [facility] [address] [place] [address], [place] [phone] * (ABNORMAL) Thyroid stimulating hormone (04/26/2024 6:34 AM EST) TSH 6.69(H) 0.40 - 4.00 mcIU/mL LAB CHEMISTRY METHOD 04/26/2024 8:48 AM [facility] Blood Venous blood specimen / Unknown Venipuncture / Unknown 04/26/2024 6:34 AM EST 04/26/2024 7:53 AM EST Mookie Donovan MD LAB BLOOD ORDERABLES Final Result [facility] [address] [place] [address], * (ABNORMAL) Basic metabolic panel (04/26/2024 6:34 [...] [facility] Comment:Calculation based on the [...] Final Result [facility] [address] [place] [address], * (ABNORMAL) Complete blood count (04/26/2024 6:34 [...] LAB HEMETOLOGY METHOD 04/26/2024 8:13 AM EST [facility] MCHC 30.7(L) 32.0 - [...] 8:13 AM [facility] Blood Venous blood specimen / Unknown Venipuncture / Unknown 04/26/2024 6:34 AM EST 04/26/2024 7:53 AM EST us Mookie Donovan MD LAB BLOOD ORDERABLES Final Result [facility] [address] [place] [address], documented in this encounter Visit Diagnoses Diagnosis Anemia, unspecified Type 2 diabetes mellitus without complications (CMS/HCC V24, CMS/HCC V28) documented in this encounter Additional Health Concerns Infection Onset Date Last Indicated Resolved Time ESBL 04/25/2024 04/25/2024 documented as of this encounter Care Teams Bulk Mail Clerk Relationship Specialty Start Date End Date Melissa Shannon MD [address] [place] [address] PCP - General Internal Medicine 04/02/13 documented as of this encounter
--- OUTSIDE RECORDS SUMMARY | 2025-03-25 18:07 | XMS_ITS | Encounter Summary ---
Author Organization [facility] Address [address] [place] [address] Care Team Providers Care Health Care Marketing Manager Name Role Phone Melissa Shannon MD Primary Care Provider [phone]- [phone] Encounter Details Date Type Department Care Team (Late st Contact Info) Description 04/26/2024 Lab Requisition [facility] - Main Lab [address] [facility] [place] [address] Mookie Donovan MD [address] [place] [address] Dysuria Social History Tobacco Use Types Packs/Day [...] reflex microscopic (04/25/2024 1:30 PM EST) Specific [place] Urine 1.028 1.003 - 1.030 LAB URINALYSIS - AUTOMATED METHOD 04/26/2024 9:42 AM [facility] pH, Urine 5.5 5.0 - 8.0 pH LAB URINALYSIS - AUTOMATED METHOD 04/26/2024 9:42 AM [facility] Leukocytes, Urine Moderate(A) Negative LAB URINALYSIS - AUTOMATED METHOD 04/26/2024 9:42 AM [facility] Nitrite, Urine Negative Negative LAB URINALYSIS - AUTOMATED METHOD 04/26/2024 9:42 AM [facility] Protein, Urine 100(A) <=Trace mg/dL LAB URINALYSIS - AUTOMATED METHOD 04/26/2024 9:42 AM [facility] Glucose, Urine Negative Negative mg/dL LAB URINALYSIS - AUTOMATED METHOD 04/26/2024 9:42 AM [facility] Ketones, Urine Trace(A) Negative mg/dL LAB URINALYSIS - AUTOMATED METHOD 04/26/2024 9:42 AM [facility] Urobilinogen , Urine 1.0 0.2 - 1.0 mg/dL LAB URINALYSIS - AUTOMATED METHOD 04/26/2024 9:42 AM [facility] Bilirubin, Urine Negative Negative LAB URINALYSIS - AUTOMATED METHOD 04/26/2024 9:42 AM [facility] Blood, Urine Moderate(A) Negative LAB URINALYSIS - AUTOMATED METHOD 04/26/2024 9:42 AM [facility] RBC, Urine 7.4(H) 0 - 4 /HPF LAB URINALYSIS - AUTOMATED METHOD 04/26/2024 9:42 AM [facility] WBC, Urine 700.4(H) 0 - 4 /HPF LAB URINALYSIS - AUTOMATED METHOD 04/26/2024 9:42 AM [facility] Squamous Epithelial, Urine 48 0 - 60 /LPF LAB URINALYSIS - AUTOMATED METHOD 04/26/2024 9:42 AM EST [facility] Bacteria, Urine Many(A) Negative /HPF LAB URINALYSIS - AUTOMATED METHOD 04/26/2024 9:42 AM [facility] Hyaline Casts, Urine 1.0 0 - 3 /LPF LAB URINALYSIS - AUTOMATED METHOD 04/26/2024 9:42 AM [facility] Urine Urine specimen obtained by clean catch procedure / Unknown 04/25/2024 1:30 PM EST 04/26/2024 8:19 AM EST Mookie Donovan MD LAB URINE ORDERABLES Final Result [facility] [address] [place] [address], * (ABNORMAL) Culture urine (04/25/2024 1:30 PM EST) Culture, Urine >100,000 CFU/mL Escherichia coli ESBL(A) WARREN 04/30/2024 9:38 AM EST [facility] [...] PM EST 04/26/2024 8:19 AM EST [facility] - 04/30/2024 9:38 AM EST Additional colony types present in insignificant amounts. Organism Antibiotic Method Susceptibility Escherichia coli ESBL Amoxicillin/Clavulanate WARREN 8 ug/ml: Susceptible Escherichia coli ESBL Ampicillin/Sulbactam WARREN >=32 ug/ml: Resistant Escherichia coli ESBL Piperacillin/Tazobactam WARREN <=4 ug/ml: Susceptible Escherichia coli ESBL Cefazolin (Urine) WARREN >=32 ug/ml: Resistant Escherichia coli ESBL Cefoxitin WARREN <=4 ug/ml: Susceptible Escherichia coli ESBL Ceftazidime WARERN 8 ug/ml: Intermediate Escherichia coli ESBL Ceftriaxone [...] LAB MICROBIOLOGY - GENERAL ORDERABLES Final Result [facility]) [facility] [address] [place] [address], documented in this encounter Visit Diagnoses Diagnosis Dysuria documented in this encounter Additional Health Concerns Infection Onset Date Last Indicated Resolved Time ESBL 04/25/2024 04/25/2024 documented as of this encounter Care Teams Health Care Marketing Manager Relationship Specialty Start Date End Date Melissa Shannon MD [address] [place] [address] PCP - General Internal Medicine 04/02/13 documented as of this encounter
== END 2025-03-25 14:51 | disposition home or self-care (01) ==
LOC: HO.HMGCLDS 14:50
PROVIDERS: PCP Internal Medicine; Visit Provider Internal Medicine
DX: I48.0 Paroxysmal atrial fibrillation (principal); M81.0 Age-related osteoporosis without current pathological fracture; K21.9 Gastro-esophageal reflux disease without esophagitis; E11.9 Type 2 diabetes mellitus without complications; J30.9 Allergic rhinitis, unspecified; E78.00 Pure hypercholesterolemia, unspecified; M10.9 Gout, unspecified; I10 Essential (primary) hypertension; R53.1 Weakness
CPT/HCPCS: 36415; 80053; 80061; 82306; 82607; 82746; 83036; 83540; 83735; 85025; 99212

== ENCOUNTER 2025-03-25 15:22 | Outpatient (AMB) | payer MEDICARE, MEDICAID, SELFPAY ==
--- NOTE | 2025-03-25 15:24 | A.OFFPC_ITS ---
Vital Signs 03/25/25 15:29 Height 4 ft 7 in Weight 148 lb BMI 34.4 BP 104/64 Blood Pressure Location Rt brachial Position Sitting Respiration 17 Pulse 95 Pulse Source Pulse Oximeter Temp 97.5 F Temp Source Oral Pulse Oximetry (%) 95 Oxygen Delivery Method Room Air Intake Visit Reasons: 3 mo fu up rescheduled from 03/11 Intake Note: Pt is here today c/o nausea and itchy eyes Allergies meperidine (Demerol) Allergy (Unknown, Verified 03/25/25 15:49) Nausea and Vomiting oxycodone Allergy (Unknown, Verified 03/25/25 15:49) Nausea and Vomiting Sulfa (Sulfonamide Antibiotics) (SULFA (SULFONAMIDE ANTIBIOTICS)) Allergy (Unknown, Verified 03/25/25 15:49) NAUSEA & VOMITING, GI upset morphine Allergy (Verified 03/25/25 15:49) Hallucinations Penicillins (PENICILLINS) Allergy (Verified 03/25/25 15:49) rash shellfish derived Allergy (Verified 03/25/25 15:49) Anaphylaxis warfarin (WARFARIN) Adverse Reaction (Severe, Verified 03/25/25 15:49) UNKNOWN aspirin (ASPIRIN) Adverse Reaction (Mild, Verified 03/25/25 15:49) gi bleed enoxaparin (From LOVENOX) Adverse Reaction (Unknown, Verified 03/25/25 15:49) INTERNAL BLEEDING heparin (HEPARIN) Adverse Reaction (Unknown, Verified 03/25/25 15:49) INTERNAL BLEEDING ibuprofen Adverse Reaction (Unknown, Verified 03/25/25 15:49) GI bleed MAGNOLIA Inhibitors Adverse Reaction (Verified 03/25/25 15:49) Angioedema Chocolate Adverse Reaction (Verified 03/25/25 15:49) Diarrhea eggs Adverse Reaction (Severe, Uncoded 03/25/25 15:49) Nausea and Vomiting Medication List - Last Reconciled 03/25/25 by Melissa Shannon MD acetaminophen 1,000 mg PO Q6H PRN [Adult facial/body wipes As directed NS] [adult pull-ups (medium) As directed NS] albuterol sulfate 2.5 mg (3 mL) inhalation Q6H PRN 30 days allopurinol 100 mg PO DAILY alprazolam 0.25 mg PO DAILY PRN apixaban (Eliquis) 5 mg PO BID bedside commode (commode) Use As directed NS blood-glucose meter (FreeStyle Lite Meter kit) Check blood sugar once a day as directed docusate sodium (Colace) 100 mg PO BID PRN duloxetine 30 mg PO BID 3 months epinephrine (EpiPen) 0.3 mg (0.3 mL) IM ONCE PRN ferrous sulfate (Feosol) 325 mg PO DAILY fluticasone furoate 100 mcg/actuation (Arnuity Ellipta) 1 inh PO DAILY fluticasone propionate 50 mcg/actuation 1 spray intranasal Q12H furosemide 20 mg PO DAILY gabapentin (Neurontin) 100 mg PO BID 1 month [Head & foot electric bed with half side rails head and foot electric bed with 2 half side rails NS] ipratropium-albuterol 0.5 mg-3 mg(2.5 mg base)/3 mL 3 mL inhalation Q6H PRN 30 days loratadine 10 mg PO DAILY PRN losartan 50 mg PO DAILY magnesium oxide 400 mg PO BID metoprolol succinate ER 75 mg See Protocol PO DAILY 3 months montelukast 10 mg PO BEDTIME nebulizers As directed pantoprazole 40 mg PO DAILY@0630 polyethylene glycol 3350 (Miralax) 17 grams PO BID PRN potassium chloride ER 20 mEq PO DAILY prednisone 40 mg (2 x 20 mg) PO DAILY 5 days [Re-usable/washable adult pads As directed NS] rosuvastatin 20 mg PO BEDTIME Serevent Diskus (salmeterol) 1 inh inhalation BID 30 days NS sitagliptin phos-metformin 50-500 mg 1 tab PO BID 90 days [Transport wheelchair with bilateral foot rest. Use As directed] Ventolin HFA 90 mcg/actuation (albuterol sulfate) 2 puffs inhalation Q4-6H PRN NS [wheelchair with foot rest As directed] Tobacco use date assessed: 03/25/25 Fall risk assessment: No Falls in past year Last assessed Fall Risk: 03/25/25 Dental Screening Dental Screen Date: 03/25/25 Did you have a dental visit in the last 12 months?: No Did you have a dental problem in the last 6 months where you did not have access to dental care?: No Was dental information given to patient?: Patient declined HPI 3 mo fu up rescheduled from 03/11 HPI Details 85-year-old lady with past medical histo ry significant for diabetes mellitus type 2 currently on gentleman 5501 tablet twice a day, PFS Medical History Iron deficiency anemia History of COVID-19 History of toe fracture Hx of fracture of humerus Diastolic heart failure Lumbar back pain with radiculopathy affecting left lower extremity Mixed stress and urge urinary incontinence Osteoporosis History of compression fracture of spine Compression fracture of body of thoracic vertebra Paroxysmal atrial fibrillation Anemia Diverticulitis COPD (chronic obstructive pulmonary disease) Allergic rhinitis Multiple lipomas 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) GERD (gastroesophageal reflux disease) Deep vein thrombosis (DVT) of left lower extremity Gout Anxiety disorder Type 2 diabetes mellitus without complication, without long-term current use of insulin Hyperlipidemia Hypertension Surgical History H/O: hysterectomy History of gastric surgery Hx of hand surgery H/O local excision of skin lesion Family History Mother Mental health disorder Sister CVA (cerebral vascular accident) Daughter Brain tumor Diabetes Bipolar 1 disorder Heart abnormality Mental illness in member of household Mental health disorder Father Substance use disorder Son Mental health disorder Social History Household Members: Family Housing: House Do you presently have visiting nurse or other home services: No Alcohol intake: former Patient Tobacco Use Status: Former Tobacco user Years Smoked: 10 yrs e-Cigarette/Vaping Use: Never Used Second Hand Smoke Exposure: No Advance Directives Date on File: 07/27/21 service: No Current occupational status: retired Cognitive needs: No Hearing needs: No Vision needs: Yes Questionnaire Thrive Questionnaire Date Thrive assessed: 12/27/23 I am a: Patient What is your living situation today?: I have a steady place to live Within the past 12 months, did the food you bought not last and you didn't have the money to get more?: Never true Within the past 12 months, did you worry whether your food would run out before you got money to buy more?: Never true Do you have trouble paying for medicines?: No Do you have trouble getting transportation to medical appointments?: No Do you have trouble paying your heating and electricity bill?: No Do you have trouble taking care of your child, family member or friend?: No Do you have trouble with day-to-day activities such as bathing, preparing meals, shopping, managing finances, etc.?: Yes Are you currently unemployed and looking for a job?: Yes Are you interested in more education?: No Please select the resources that you would like help with: None Currently or been in a relationship where the following occur: I choose not to answer THRIVE Score: 0 KIRA-7 AMB Questionnaire KIRA-7 Date KIRA - 7 assessed: 12/27/23 Source: Developed by Drs. Dg Louis, Joyce Saez, Gigi Gaytan and colleagues, with an educational bao from [employer]. Physical exam (Primary Care) Vital Signs: Last Vital Signs Temp 97.5 F 03/25/25 15:29 Pulse 95 03/25/25 15:29 Resp 17 03/25/25 15:29 BP 104/64 03/25/25 15:29 Pulse Ox 95 03/25/25 15:29 Oxygen Delivery Method Room Air 03/25/25 15:29 BMI result Body Mass Index 34.4 Tobacco/Smoking Status: Tobacco use Status Tobacco use date assessed 03/25/25 03/25/25 15:36 Patient Tobacco Use Status Former Tobacco user 03/25/25 15:25 e-Cigarette/Vaping Use Never Used 03/25/25 15:25 Thrive Assessment: Date of Thrive Assessment Date Thrive assessed 12/27/23 03/25/25 15:25 Currently or been in a relationship where the following occur: I choose not to answer Results AMB Hemoglobin A1c AMB Hemoglobin A1c 6.5 % Last Edit by Raegan Mazariegos CMA on 03/25/25 16:03 Coding Diagnoses Ingrown toenail of both feet L60.0 Assessment & Plan Assessment & Plan (1) Ingrown toenail of both feet: Code(s): L60.0 - Ingrowing nail Category: Medical Orders: Orders AMB Hemoglobin A1c Today Z13.9 - Encounter for screening, unspecified Referrals Podiatry Referral L60.0 - Ingrowing nail Gastroenterology Referral K21.9 - Gastro-esophageal reflux disease without esophagitis, R14.0 - Abdominal distension (gaseous) Medications: New ketotifen fumarate 0.025%(0.035%) (Allergy Eye (ketotifen)) 1 drp ophthalmic (eye) Q12H PRN 5 mL 0RF allergy symptoms ondansetron HCl 4 mg PO Q8H PRN 20 tabs 0RF nausea and vomiting
[2025-03-25 15:29] VITALS: BP 104/64; PULSE 95; RESP 17; TEMP 36.4; O2SAT 95; BMI 34.4
== END 2025-03-25 16:30 | disposition home or self-care (01) ==
LOC: HO.HMCC 15:23
PROVIDERS: PCP Internal Medicine; Visit Provider Internal Medicine
DX: Z13.9 Encounter for screening, unspecified (principal)